=== PATIENT | female | born 1950 | race Caucasian/White ===

== ENCOUNTER 2016-10-16 12:29 | Emergency (ER) | payer OTHER ==
[~2016-10-16] VITALS: Ht 154.9 cm; Wt 57.0 kg
[~2016-10-16 12:29] MED LIST: ATV/1 PO; CALC0.2510 PO; FLV1 PO; LEVO50TA6 PO; LSN25 PO; MCRK20 PO; MELA1TAB9 PO; METO50TA7 PO; MULT-506 PO; OMEP40CA PO; PANT1TAB48 PO; PARO1TAB27 PO; PRAM1TAB6 PO; SIMV-151 PO; WARF-280 PO; WARF2.5T8 PO; ZOLP5TAB PO
[2016-10-16 12:31] VITALS: TEMP 36.7; Ht 154.9 cm; Wt 57.0 kg
[2016-10-16] MEDS ORDERED: SODIUM CHLORIDE 0.9% 1000ML 1,000 ML IV STA (12:39)
[2016-10-16] MEDS ORDERED: OMEP40CA41 PO (13:06)
[2016-10-16] MEDS ORDERED: POTA1TAB97 PO (13:06)
--- NOTE | 2016-10-16 13:09 | EMERGENCY ROOM VISIT NOTE ---
History First contact with patient: 12:35 Chief Complaint: GI ASSESSMENT Stated Complaint: GROIN PAIN Nursing Triage Summary: Patient c/o of RLQ abdominal pain x 1 wk. Associated symptoms include nausea. Patient reports constipated bowel pattern wth last bowel movement ocurring yesterday. History of Present Illness The patient is a 66 year old female who presents to the Emergency Room with complaints of right lower quadrant abdominal pain for the past one week. She has chronic constipation issues, she states these have been worse for the past week. The pain has been constant, achy, worse with movement, better with rest, unrelieved with bowel movements, 10/10. She has not tried any medications for this pain. She saw her PCP today who sent her to the ER for further evaluation. She has had multiple previous abdominal surgeries in the past, including total hysterectomy, hiatal hernia repair, and cholecystectomy. She denies fevers, chills, chest pain, shortness of breath, back pain, nausea, vomiting, blood in stool, urinary complaints, vaginal complaints. Review of Systems GENERAL: Denies fevers, chills, malaise, fatigue, unintentional weight changes. HEENT: Denies dizziness, visual problems, hearing loss, tinnitus. Denies difficulty swallowing or oral lesions. PULMONARY: Denies cough, shortness of breath, sputum production or hemoptysis. CARDIOVASCULAR: Denies chest pain, palpitations, dyspnea on exertion, orthopnea or peripheral edema. GASTROINTESTINAL: + Abdominal pain, constipation. Denies diarrhea, nausea, vomiting. GENITOURINARY: Denies dysuria, frequency, urgency or nocturia. NEUROLOGIC: Denies history of epilepsy, CVA, TIA or chronic headaches. MUSCULOSKELETAL: Denies history of joint tenderness/swelling. SKIN: Denies rashes or lesions. PSYCHIATRIC: Denies history of depression or mental illness. ENDOCRINE: Denies history of diabetes, thyroid disorders, abnormal hair growth or sexual dysfunction. Past Medical/Surgical History Medical Problems: (1) Anal fissure (2) ANEMIA NOS (3) AORTIC VALVE DISORDER (4) CHRONIC KIDNEY DISEASE, UNSPECIFIED (5) CONGESTIVE HEART FAILURE NOS (6) DIAPHRAGMATIC HERNIA (7) ESOPHAGEAL REFLUX (8) HEART DISEASE NOS (9) HYPOTHYROIDISM NOS (10) PURE HYPERCHOLESTEROLEM Family History Heart disease Hypertension Social History Smoking Status: Never Smoker Alcohol Use: none Marital Status: Housing Status: lives with family, lives with significant other Occupation Status: unemployed Current/Historical Medications Scheduled Calcitriol (Rocaltrol Cap), 0.25 MCG PO DAILY Folic Acid (Folic Acid), 1 MG PO DAILY Levothyroxine Sodium (Levothyroxine Sodium), 50 MCG PO QAM Lisinopril (Lisinopril), 2.5 MG PO DAILY Lorazepam (Ativan), 1 MG PO HS Melatonin-Pyridoxine (Melatonin), 3 MG PO HS Metoprolol Succ (Toprol Xl) (Toprol-Xl), 50 MG PO DAILY Multivitamin (Multivitamin), 1 TAB PO DAILY Omeprazole (Prilosec), 40 MG PO DAILY Pantoprazole (Protonix), 40 MG PO DAILY Paroxetine (Paxil), 30 MG PO DAILY Potassium Chloride (K-Tab), 20 MEQ PO DAILY Pramipexole Dihydrochloride (Pramipexole Dihydrochlori), 1 MG PO HS Simvastatin (Simvastatin), 20 MG PO HS Warfarin Sod (Jantoven), 0.5 TAB PO UD Warfarin Sodium (Warfarin Sodium), 2.5 MG PO WK Scheduled PRN Zolpidem Tartrate (Ambien), 5 MG PO HS PRN for Sleep Allergies Coded Allergies: Doxycycline (Verified Allergy, Unknown, ., 10/16/16) Sulfamethoxazole w/Trimethoprim (Verified Allergy, Unknown, ., 10/16/16) Physical Exam Vital Signs Date Time Temp Pulse Resp B/P Pulse Ox O2 Delivery O2 Flow Rate FiO2 10/16/16 17:29 60 16 121/49 94 Room Air 10/16/16 16:00 57 20 133/61 98 Room Air 10/16/16 15:01 56 16 139/63 97 Room Air 10/16/16 13:40 66 18 143/54 98 Room Air 10/16/16 13:05 62 10/16/16 13:03 61 16 143/60 97 Room Air 10/16/16 12:31 36.7 69 16 158/73 98 Physical Exam CONSTITUTIONAL: No acute distress and does not appear to be uncomfortable or in severe pain. Well appearing and well nourished. Alert and oriented X 4 with normal affect. HEENT: Normocephalic, atraumatic. Pupils equal, round and reactive to light, EOMI. TMs normal. Pharynx normal. Dry mucous membranes. NECK: Supple, full active range of motion without discomfort. RESPIRATORY: Clear to auscultation bilaterally with no wheezing, crackles, rhonchi or stridor. Equal expansion bilaterally. CARDIOVASCULAR: Regular rate and rhythm with no murmurs, rubs or gallops. Normal peripheral perfusion. No edema. GASTROINTESTINAL: Soft, nondistended. Bowel sounds present in all quadrants. Moderate tenderness of the right lower quadrant and suprapubic region, no rebound tenderness, no Rovsing or obturator signs, but positive McBurney's point tenderness. Patient has multiple well-healed surgical scars from previous surgeries. No palpable mass or hernia. MUSCULOSKELETAL: Full range of motion of all joints without discomfort. INTEGUMENTARY: No rash or other significant dermatologic conditions noted. NEUROLOGIC: Cranial nerves II-XII grossly intact. No focal neurologic deficits noted. Medical Decision & Procedures ER Provider Diagnostic Interpretation: ABDOMEN 2VIEW W/PA CHEST RTN CLINICAL HISTORY: eval for obstruction pain COMPARISON STUDY: 12/12/2015 FINDINGS: Moderate stable cardiomegaly. Prior median sternotomy and valve replacement. Lungs are considered clear. Chronic interstitial prominence both lung bases. Nonobstructive bowel pattern. IMPRESSION: No acute process of the chest or abdomen. ----- CT OF THE ABDOMEN AND PELVIS WITH CONTRAST CLINICAL HISTORY: Right lower quadrant pain. History of bowel obstruction. COMPARISON STUDY: CT of the abdomen and pelvis September 15, 2013. TECHNIQUE: Following IV administration of 92 mL of Optiray-320, axial images of the abdomen and pelvis were obtained from the lung bases to the proximal femurs. Images were reviewed in the axial, sagittal, and coronal planes. IV contrast was administered without complication. Oral contrast was administered. CT DOSE: 460.13 mGycm FINDINGS: Visualized portions of the lower chest demonstrate mild cardiomegaly. There are postsurgical findings at the gastroesophageal junction. Mild biliary ductal dilatation is likely due to prior cholecystectomy. A few subcentimeter hypodense hepatic lesions are too small to characterize likely reflect cysts. The spleen, adrenal glands, kidneys and pancreas are unremarkable. There is no peripancreatic infiltration. Caliber and wall thickness of small and large bowel are normal. There is no evidence for a bowel obstruction. The appendix is nonvisualized. There is no right lower quadrant inflammation. Postsurgical findings within the spine are noted. There is mild right pelvicaliectasis. No ureteral calculus is present. A few subcentimeter renal lesions are too small to characterize but likely reflect cysts. IMPRESSION: 1. No acute process within the abdomen or pelvis. 2. Mild biliary ductal dilatation likely related to prior cholecystectomy. 3. Mild right pelvicaliectasis without ja hydronephrosis. No ureteral calculus identified. Laboratory Results 10/16/16 12:52 Red Blood Count 3.85, Mean Corpuscular Volume 97.7, Mean Corpuscular Hemoglobin 32.7, Mean Corpuscular Hemoglobin Concent 33.5, Mean Platelet Volume 10.3, Neutrophils (%) (Auto) 61.6, Lymphocytes (%) (Auto) 24.2, Monocytes (%) (Auto) 10.5, Eosinophils (%) (Auto) 3.5, Basophils (%) (Auto) 0.1, Neutrophils # (Auto ) 4.57, Lymphocytes # (Auto) 1.80, Monocytes # (Auto) 0.78, Eosinophils # (Auto ) 0.26, Basophils # (Auto) 0.01 10/16/16 12:52 Test 10/16/16 12:45 10/16/16 12:52 10/16/16 12:59 Urine Color DK YELLOW Urine Appearance CLEAR (CLEAR) Urine pH 5.0 (4.5-7.5) Urine Specific [place] 1.027 (1.000-1.030) Urine Protein NEG (NEG) Urine Glucose (UA) NEG (NEG) Urine Ketones TRACE (NEG) Urine Occult Blood NEG (NEG) Urine Nitrite NEG (NEG) Urine Bilirubin NEG (NEG) Urine Urobilinogen NEG (NEG) Urine Leukocyte Esterase NEG (NEG) White Blood Count 7.43 K/uL (4.8-10.8) Red Blood Count 3.85 M/uL (4.2-5.4) Hemoglobin 12.6 g/dL (12.0-16.0) Hematocrit 37.6 % (37-47) Mean Corpuscular Volume 97.7 fL (80-100) Mean Corpuscular Hemoglobin 32.7 pg (25-34) Mean Corpuscular Hemoglobin Concent 33.5 g/dl (32-36) Platelet Count 181 K/uL (130-400) Mean Platelet Volume 10.3 fL (7.4-10.4) Neutrophils (%) (Auto) 61.6 % Lymphocytes (%) (Auto) 24.2 % Monocytes (%) (Auto) 10.5 % Eosinophils (%) (Auto) 3.5 % Basophils (%) (Auto) 0.1 % Neutrophils # (Auto) 4.57 K/uL (1.4-6.5) Lymphocytes # (Auto) 1.80 K/uL (1.2-3.4) Monocytes # (Auto) 0.78 K/uL (0.11-0.59) Eosinophils # (Auto) 0.26 K/uL (0-0.5) Basophils # (Auto) 0.01 K/uL (0-0.2) RDW Standard Deviation 49.6 fL (36.4-46.3) RDW Coefficient of Variation 13.9 % (11.5-14.5) Immature Granulocyte % (Auto) 0.1 % Immature Granulocyte # (Auto) 0.01 K/uL (0.00-0.02) Prothrombin Time 30.6 SECONDS (9.0-12.0) Prothromb Time International Ratio 2.7 (0.9-1.1) Activated Partial Thromboplast Time 42.9 SECONDS (21.0-31.0) Partial Thromboplastin Ratio 1.7 Anion Gap 8.0 mmol/L (3-11) Est Creatinine Clear Calc Drug Dose 29.8 ml/min Estimated GFR () 45.3 Estimated GFR (Non- 39.1 BUN/Creatinine Ratio 16.7 (10-20) Calcium Level 8.7 mg/dl (8.5-10.1) Total Bilirubin 0.6 mg/dl (0.2-1) Direct Bilirubin 0.1 mg/dl (0-0.2) Aspartate Amino Transf (AST/SGOT) 29 U/L (15-37) Alanine Aminotransferase (ALT/SGPT) 23 U/L (12-78) Alkaline Phosphatase 115 U/L (45-117) Total Protein 7.6 gm/dl (6.4-8.2) Albumin 3.9 gm/dl (3.4-5.0) Lipase 187 U/L (73-393) Bedside Lactic Acid Venous 0.48 mmol/L (0.90-1.70) Medications Administered Medications (Trade) Dose Ordered Sig/Piper Route Start Time Stop Time Status Last Admin Dose Admin Sodium Chloride (Nss 1000ml) 1,000 ml @ 999 mls/hr Q1H1M STAT IV 10/16/16 12:39 10/16/16 13:39 DC 10/16/16 12:58 999 MLS/HR Morphine Sulfate (MoRPHine SULFATE INJ) 2 mg Q1H PRN IV 10/16/16 13:30 10/16/16 17:54 DC 10/16/16 15:56 2 MG Morphine Sulfate (MoRPHine SULFATE INJ) 2 mg 1319 ONCE IV 10/16/16 13:19 10/16/16 13:23 DC 10/16/16 13:39 2 MG Ondansetron HCl (Zofran Inj) 4 mg NOW PRN IV 10/16/16 13:30 10/16/16 17:54 DC 10/16/16 13:37 4 MG ED Course Orders placed at bedside for labs, urinalysis, IV fluid bolus, CT of the abdomen /pelvis to evaluate for appendicitis, hernia, small bowel obstruction, adhesions , versus possible obstipation. Patient discussed with Dr. Mccoy, who agrees with my assessment and plan. Patient reassessed after IV morphine, reports improved pain. Awaiting CT. CT results reviewed, no indication of appendicitis or any other acute findings. Moderate fecal load noted. I reassessed the patient, informed her of all results, and plan for discharge home. She states her pain is somewhat improved at this time. Patient and her daughter verbalized understanding of discharge instructions, plan for follow-up , and return criteria should her symptoms persist or worsen. Medical Decision CC: Patient presenting with complaint of right lower quadrant abdominal pain and constipation for one week. Interpretation of Labs: CBC unremarkable; no significant electrolyte abnormalities; slight worsening of renal function compared to baseline ( previous creatinine of 1.2) Differential Diagnosis: Includes, but not limited to appendicitis, hernia, small bowel obstruction, diverticulitis, inflammatory bowel disease, constipation versus obstipation, dehydration. Summary: Patient is alert and well appearing on initial exam, noted acute distress. Abdomen is moderately tender in the right lower quadrant and suprapubic region, reproduces pain, no rebound tenderness. Labs are fairly unremarkable, suspect worsening of renal function secondary to dehydration. CT of the abdomen/pelvis with oral and IV contrast shows no acute findings, the appendix was not visualized, however there are no inflammatory changes noted. On repeat questioning, patient states she may have had her appendix removed in the past. I do note moderate fecal load consistent with constipation. I suspect patient's symptoms may be related to her constipation, and suggested treatment regimen for this with Colace and MiraLAX. Patient reassessed multiple times throughout ED stay, with improvement after treatments. Patient and her daughter were encouraged to follow closely with the PCP, as well as given strict return precautions should her pain persist or worsen, they verbalized understanding. Patient was discussed with and independently examined by the attending physician , who agrees with my assessment and disposition. Impression Primary Impression: Abdominal pain Additional Impression: Constipation Departure Information Dispostion Home / Self-Care Condition GOOD Referrals Gomez Bass M.D. (PCP) Patient Instructions Calcium Polycarbophil Oral tablet, ED Abd Pain Unkn Cause Fem, My [facility] Additional Instructions Follow-up with your PCP in the next 1-2 days to be reassessed. Drink plenty of fluids to stay well hydrated. This will also help with your constipation. Start taking Colace 1 capsule twice a day. This is an [id number] stool softener. Start taking MiraLAX 1 capful daily to help relieve constipation. This is an szly-bio-[id number] mild laxative. You should take this until your stool reaches a thick applesauce type consistency. Stop taking if you develops diarrhea or worsening abdominal pain. You may also take simethicone, which is [id number], as directed as needed for gas pain. Please return to the emergency department for any worsening symptoms, including persistent or worsening abdominal pain, vomiting blood or bile, blood in the stool, fever/chills/feeling ill, or any other concerns. Problem Qualifiers Primary Impression: Abdominal pain Abdominal location: right lower quadrant Qualified Codes: R10.31 - Right lower quadrant pain Additional Impression: Constipation Constipation type: chronic idiopathic constipation Qualified Codes: K59.04 - Chronic idiopathic constipation
[2016-10-16] MEDS ORDERED: MoRPHine SULFATE 4 MG/ML 1 ML CARP\\VIAL IV ONE (13:19)
[2016-10-16] MEDS ORDERED: ONDANSETRON INJ 2 MG/ML 2 ML VIAL IV PRN (13:30)
[2016-10-16] MEDS ORDERED: MoRPHine SULFATE 4 MG/ML 1 ML CARP\\VIAL IV PRN (13:30)
[2016-10-16] MEDS ORDERED: MoRPHine SULFATE 2 MG/ML CARP ONE (13:35)
[2016-10-16 13:38] LABS: URINE APPEARANCE CLEAR (CLEAR); URINE BILIRUBIN NEG (NEG); URINE COLOR DK YELLOW; URINE NITRITE NEG (NEG); URINE SPECIFIC GRAVITY 1.027 (1.000-1.030); UROBILINOGEN NEG (NEG)
[2016-10-16 13:39] LABS: BASO % 0.1 %; BASO ABS # 0.01 K/uL (0-0.2); COMPLETE YES; EOS % 3.5 %; HEMATOCRIT 37.6 % (37-47); IG% 0.1 %; LYMPH % 24.2 %; MEAN CELL VOLUME 97.7 fL (80-100); MEAN CORPUSCULAR HEMOGLOBIN 32.7 pg (25-34); MEAN CORPUSCULAR HGB CONC 33.5 g/dl (32-36); MEAN PLATELET VOLUME 10.3 fL (7.4-10.4); MONO % 10.5 %; NEUT % 61.6 %; PLATELET COUNT 181 K/uL (130-400); RED BLOOD COUNT 3.85 M/uL (4.2-5.4); WHITE BLOOD COUNT 7.43 K/uL (4.8-10.8)
[2016-10-16] MEDS ORDERED: OPTIRAY 320 IV PRN (13:45)
[2016-10-16 13:54] LABS: INR 2.7 (0.9-1.1); PARTIAL THROMBOPLASTIN RATIO 1.7; PROTHROMBIN TIME (PATIENT) 30.6 SECONDS (9.0-12.0)
[2016-10-16 13:56] LABS: BUN/CREATININE RATIO 16.7 (10-20); CALCIUM 8.7 mg/dl (8.5-10.1); CREATININE 1.4 mg/dl (0.60-1.20); POTASSIUM 3.8 mmol/L (3.5-5.1)
[2016-10-16 14:05] LABS: MANUAL MICROSCOPIC REQUIRED? NO; REVIEW REQ? NO
--- NOTE | 2016-10-16 14:54 | DIAGNOSTIC IMAGING REPORT ---
ABDOMEN 2VIEW W/PA CHEST RTN CLINICAL HISTORY: eval for obstruction pain COMPARISON STUDY: 12/12/2015 FINDINGS: Moderate stable cardiomegaly. Prior median sternotomy and valve replacement. Lungs are considered clear. Chronic interstitial prominence both lung bases. Nonobstructive bowel pattern. IMPRESSION: No acute process of the chest or abdomen. Electronically signed by: Nando Hernandez M.D. 10/16/2016 2:53 PM Dictated Date/Time: 10/16/2016 2:52 PM
--- NOTE | 2016-10-16 16:48 | DIAGNOSTIC IMAGING REPORT ---
CT OF THE ABDOMEN AND PELVIS WITH CONTRAST CLINICAL HISTORY: Right lower quadrant pain. History of bowel obstruction. COMPARISON STUDY: CT of the abdomen and pelvis September 15, 2013. TECHNIQUE: Following IV administration of 92 mL of Optiray-320, axial images of the abdomen and pelvis were obtained from the lung bases to the proximal femurs. Images were reviewed in the axial, sagittal, and coronal planes. IV contrast was administered without complication. Oral contrast was administered. CT DOSE: 460.13 mGycm FINDINGS: Visualized portions of the lower chest demonstrate mild cardiomegaly. There are postsurgical findings at the gastroesophageal junction. Mild biliary ductal dilatation is likely due to prior cholecystectomy. A few subcentimeter hypodense hepatic lesions are too small to characterize likely reflect cysts. The spleen, adrenal glands, kidneys and pancreas are unremarkable. There is no peripancreatic infiltration. Caliber and wall thickness of small and large bowel are normal. There is no evidence for a bowel obstruction. The appendix is nonvisualized. There is no right lower quadrant inflammation. Postsurgical findings within the spine are noted. There is mild right pelvicaliectasis. No ureteral calculus is present. A few subcentimeter renal lesions are too small to characterize but likely reflect cysts. IMPRESSION: 1. No acute process within the abdomen or pelvis. 2. Mild biliary ductal dilatation likely related to prior cholecystectomy. 3. Mild right pelvicaliectasis without ja hydronephrosis. No ureteral calculus identified. Electronically signed by: Angel Munson M.D. 10/16/2016 4:47 PM Dictated Date/Time: 10/16/2016 4:39 PM
--- NOTE | 2016-10-16 16:53 | EMERGENCY ROOM VISIT NOTE ---
ED Visit Note First contact with patient: 12:35 I did evaluate and examine this patient myself. I did guide management for the patient. I agree with the APC's assessment as discussed. Please see the APC's dictation for further details. I did independently review the CT scan, x-rays and blood work. There is no evidence of acute appendicitis or bowel obstruction.
[2016-10-16 17:29] VITALS: BP 121/49; PULSE 60; O2SAT 94
== END 2016-10-16 17:44 | disposition home or self-care (01) ==
LOC: C.EDB 12:30 → C.EDA 17:44
DX: R10.31 Right lower quadrant pain (principal); K59.04 Chronic idiopathic constipation; D64.9 Anemia, unspecified; I35.8 Other nonrheumatic aortic valve disorders; N18.9 Chronic kidney disease, unspecified; I50.9 Heart failure, unspecified; K21.9 Gastro-esophageal reflux disease without esophagitis; I51.9 Heart disease, unspecified; E03.9 Hypothyroidism, unspecified; E78.00 Pure hypercholesterolemia, unspecified; Z82.49 Family history of ischemic heart disease and other diseases of the circulatory system; Z79.01 Long term (current) use of anticoagulants; Z79.899 Other long term (current) drug therapy

== ENCOUNTER → 2017-10-07 | Outpatient (CLI) | payer OTHER ==
[~2017-10-07] MED LIST changes: -MCRK20 PO; -METO50TA7 PO; +METO50TA8 PO; -OMEP40CA PO; +OMEP40CA41 PO; +PANT1TAB3 PO; -PANT1TAB48 PO; +POTA1TAB97 PO; +PRAM1TAB10 PO; -PRAM1TAB6 PO
[2017-10-07 11:50] LABS: HEMATOCRIT 33.1 % (37-47); HEMOGLOBIN 10.8 g/dL (12.0-16.0); MEAN CELL VOLUME 92.7 fL (80-100); MEAN CORPUSCULAR HEMOGLOBIN 30.3 pg (25-34); MEAN CORPUSCULAR HGB CONC 32.6 g/dl (32-36); MEAN PLATELET VOLUME 9.5 fL (7.4-10.4); PLATELET COUNT 356 K/uL (130-400); RED CELL DISTRIBUTION WIDTH CV 14.7 % (11.5-14.5); RED CELL DISTRIBUTION WIDTH SD 49.4 fL (36.4-46.3); WHITE BLOOD COUNT 8.25 K/uL (4.8-10.8)
[2017-10-07 11:57] LABS: INR 2.4 (0.9-1.1)
[2017-10-07 11:58] LABS: BLOOD UREA NITROGEN 25 mg/dl (7-18); CALCIUM 8.8 mg/dl (8.5-10.1); CARBON DIOXIDE 29 mmol/L (21-32); CREATININE 0.95 mg/dl (0.60-1.20); GLUCOSE 111 mg/dl (70-99); SODIUM 137 mmol/L (136-145)
== END | disposition home or self-care (01) ==
LOC: C.LABSPEC 11:40
PROVIDERS: ATTEND Student in an Organized Health Care Education/Training Program
DX: Z47.1 Aftercare following joint replacement surgery (principal); Z79.01 Long term (current) use of anticoagulants

== ENCOUNTER 2018-09-03 13:16 | Inpatient (IN) ==
[2018-09-03] MEDS ORDERED: VANCOMYCIN CONSULT ACTIVE PRN (13:43)
[2018-09-03] MEDS ORDERED: cefTRIAXone SODIUM 1,000 MG in DEXTROSE 5% 50 ML IV STA (13:43)
[2018-09-03] MEDS ORDERED: LORazepam 1 MG/2 ML VIAL IV STA (13:43)
[2018-09-03] MEDS ORDERED: VANCOMYCIN HCL 1,250 MG in SODIUM CHLORIDE 0.9% 500 ML IV ONE (13:43)
[2018-09-03 13:58] LABS: Basophils # (auto) 0.01 K/uL (0-0.2); Basophils % (auto) 0.1 %; Eosinophils # (auto) 0.22 K/uL (0-0.5); Eosinophils % (auto) 2.8 %; Hematocrit (blood only) 39.4 % (37-47); Hemoglobin 13.1 g/dL (12.0-16.0); Immature Granulocytes # (auto) 0.03 K/uL (0.00-0.02); Immature Granulocytes % (auto) 0.4 %; Lymphocytes # (auto) 1.67 K/uL (1.2-3.4); Lymphocytes % (auto) 21.2 %; Mean Corpuscular Hgb Conc 33.2 g/dL (32-36); Mean Platelet Volume 11.7 fL (7.4-10.4); Monocytes # (auto) 0.85 K/uL (0.11-0.59); Monocytes % (auto) 10.8 %; Neutrophils % (auto) 64.7 %; Platelet Count 166 K/uL (130-400); RDW Coefficient of Variation 13.8 % (11.5-14.5); RDW Standard Deviation 47.1 fL (36.4-46.3); Red Blood Count 4.19 M/uL (4.2-5.4); White Blood Count 7.88 K/uL (4.8-10.8)
[2018-09-03 14:11] LABS: INR 2.7 (0.9-1.1); Partial Thromboplastin Ratio 1.6; Partial Thromboplastin Time 43.9 Seconds (21.0-31.0); Prothrombin Time 25.6 Seconds (9.0-12.0)
[2018-09-03 14:50] LABS: Appearance Urine Clear (Clear); Bilirubin Urine Negative (Negative); Blood Urine Negative (Negative); Color Urine Yellow; Glucose Urine UA Negative (Negative); Ketones Urine Trace (Negative); Leukocyte Esterase Urine Negative (Negative); Nitrite Urine Negative (Negative); Protein Urine Negative (Negative); Specific Gravity Urine 1.022 (1.000-1.030); Urobilinogen Urine Negative (Negative)
[2018-09-03 15:08] LABS: Alanine Aminotransferase 14 U/L (12-78); Albumin Globulin Ratio 0.9 (0.9-2); Albumin Level 3.5 gm/dl (3.4-5.0); Alkaline Phosphatase 140 U/L (45-117); BUN Creatinine Ratio 17.8 (10-20); Bilirubin,Total 0.5 mg/dl (0.2-1); Blood Urea Nitrogen 24 mg/dl (7-18); Calcium 8.1 mg/dl (8.5-10.1); Carbon Dioxide 31 mmol/L (21-32); Chloride 108 mmol/L (98-107); Creatinine Clr Calc Pharmacy 32.8 ml/min; Est GFR (African American) 45.8; Est GFR (Non-African American) 39.5; Globulin 3.9 gm/dl (2.5-4.0); Glucose 95 mg/dl (70-99); Total Protein 7.4 gm/dl (6.4-8.2); Troponin I < 0.015 ng/ml (0-0.045)
[2018-09-03 15:15] LABS: Sodium 141 mmol/L (136-145)
[2018-09-03 15:23] LABS: Aspartate Aminotransferase 27 U/L (15-37); Magnesium 2.1 mg/dl (1.8-2.4)
[2018-09-03] MEDS ORDERED: OPTIRAY 320 125ml IV PRN (15:55)
--- NOTE | 2018-09-03 16:06 | CT Scan Report ---
CT head/brain wo con CT DOSE: 1518.27 mGy.cm HISTORY: Mental status change Stroke evaluation TECHNIQUE: Multiaxial CT images of the head were performed without the use of intravenous contrast. A dose lowering technique was utilized adhering to the principles of ALARA. Comparison: 07/31/2018 Findings: Mucosal thickening left maxillary sinus. Remaining sinuses are clear. The calvarium and sku ll base are intact. The ventricles and sulci are within normal limits. There is no mass, hematoma, mi dline shift, or acute infarct. Impression: No acute intracranial abnormality. Age-related chronic small vessel change. Mucosal thickening left m axillary sinus. The above report was generated using voice recognition software. It may contain grammatical, syntax or spelling errors. Electronically signed by: Nando Hernandez M.D. 09/03/2018 4:04 PM
--- NOTE | 2018-09-03 16:12 | CT Scan Report ---
CT ANGIOGRAM OF THE BRAIN; CT ANGIOGRAM OF THE NECK CLINICAL HISTORY: Change in mental status. COMPARISON STUDY: Unenhanced CT of the brain performed concurrently on 09/03/2018. CT angiogram of th e head and neck dated 07/31/2018. TECHNIQUE: Following the IV administration of 119 of Optiray 320, CT angiogram of the head and neck w as performed from the aortic arch to the vertex. Images are reviewed in the axial, sagittal, and hodan nal planes. 3-D MIPS images are created and assessed. IV contrast was administered without complicati on. All measurements were calculated based on NASCET criteria. A dose lowering technique was utilize d adhering to the principles of ALARA. FINDINGS: Brain parenchyma: There is age-related involutional change noting mild subcortical and periventricula r microangiopathic disease. There is no hemorrhage, mass effect, or evidence of acute territorial isc hemia by CT criteria. There is no evidence of enhancing mass lesion on the angiogram phase images. Th e ventricles, sulci, and cisterns are prominent secondary to involutional change. Sepulveda-white matter d ifferentiation is preserved. No extra-axial fluid collection is seen. Thoracic aorta: Visualized portions of the thoracic aorta are normal in caliber. The aortic arch demo nstrates standard 3-vessel anatomy. Right carotid arterial system: The right common carotid artery is widely patent, as are the right int ernal and carotid arteries. Mild atherosclerotic plaque is noted in the carotid bulb. Left carotid arterial system: The left common carotid artery is widely patent. Soft and calcified danielle que in the carotid bulb causes less than 50% luminal narrowing at the origin of the left internal car otid artery. The remainder of the left internal carotid artery is widely patent, as is the left inter nal carotid artery. Vertebral arteries: Patent bilaterally and codominant. Subclavian arteries: Widely patent bilaterally. Intracranial vasculature: The internal carotid arteries are patent at the skull base, as are the ante rior and middle cerebral arteries bilaterally. The vertebrobasilar system and posterior cerebral jyoti tushar are widely patent. The vertebral arteries are codominant. There is no aneurysm, high-grade steno sis, or focal vessel cut off seen throughout the intracranial circulation. Jugular veins: Widely patent bilaterally. Dural sinuses: Patent. Lung apices: Midline sternotomy wires are noted. Partially visualized upper lobe lung parenchyma appe ars clear. Soft tissues: The visualized pharyngeal soft tissues are normal in appearance noting angiographic pha se technique. The oropharyngeal airway appears widely patent. The salivary and thyroid glands are nor mal in appearance. No cervical lymphadenopathy is seen. Skeletal structures: The skeletal structures are osteopenic. The calvarium appears intact. The cervic al spine is maintained noting multilevel spondylosis and postoperative change. No lytic or blastic le dylan is seen. Orbits: The bony orbits are intact. Orbital contents are normal as imaged. Sinuses and mastoids: There is advanced mucosal thickening in the left maxillary antrum. Mild mucosal thickening is noted in the ethmoid sinuses. The remaining paranasal sinuses are clear. The mastoid a ir cells are well pneumatized. IMPRESSION: 1. There is no hemorrhage, mass effect, or evidence of acute territorial ischemia by CT criteria on t his angiographic phase examination. 2. Unremarkable CT angiogram of the brain. No change from 07/31/2018. 3. There is less than 50% stenosis at the origin of the left internal carotid artery. This is unchang ed from study performed one month previously. 4. Otherwise unremarkable CT angiogram of the neck. 5. Left maxillary sinus disease as above. Electronically signed by: Amaury Mcgovern M.D. 09/03/2018 4:11 PM
--- NOTE | 2018-09-03 19:16 | History & Physical Report ---
Date of Service September 03, 2018 Assessment & Plan (1) Altered mental status: -admit to med/surg with tele -patient presenting from home with persistent babbling and unintelligble speech; had similar presentation one month ago and was life flighted to [facility] for concerns of acute CVA - work up there was negative for stroke and seizure, patient was found to have acute UTI and symptoms were felt to be due to metabolic encephalopathy -In the ED today, head CT and CTA negative for acute findings; labs and urine unremarkable -Patient received Ativan 1 mg IV with marked improvement in her symptoms -Patient currently alert and oriented, mildly slow to respond, no gross focal de ficits noted -Continue neurochecks -? if symptoms are due to underlying psychiatric disorder versus polypharmacy (noted the patient is on citalopram, pramipexole, memantine, pregabalin) -Will hold pramipexole and memantine, reduce dose of pregabalin to 50 mg 3 times daily, continue home dose of citalopram -Mental health consult, case discussed with nurse liaison (2) Tinea corporis: -Noted to left anterior gibson -will start clotrimazole cream -no signs of surrounding cellulitis (3) Hypertension: -BP controlled, continue metoprolol and lisinopril (4) Hx of aortic valve replacement, mechanical: (5) H/O mitral valve replacement with mechanical valve: -Anticoagulated on Coumadin, INR 2.7 -Continue Coumadin at home dosing (6) CKD (chronic kidney disease), stage III: - baseline creat runs in the low ones - creat noted to be 1.3 today - continue to monitor, avoid nephrotoxic agents when able (7) Dyslipidemia: -Continue statin (8) Hypothyroidism: -Continue levothyroxine (9) Chronic pain: -Reducing pregabalin as above -Follows with [facility] in [place] (10) RLS (restless legs syndrome): -Holding pramipexole as above (11) Chronic constipation: -Continue Amitiza (12) DVT prophylaxis: -Anticoagulated on Coumadin with therapeutic INR History of Present Illness Chief Complaint: Altered mental status Primary Care Provider: Gomez Bass 68-year-old female who presents to the ED with altered mental status. On 07/31, patient presented to [facility] ED with aphasia/persistent babbling. Patient was life flighted to [facility] for concerns of acute CVA. Stroke and se izure workup at [place] was negative. Patient was found to have an acute UTI and altered mental status was attributed to metabolic encephalopathy. Patient's is at bedside who provides some information. He reports that patient had been doing well. He reports that this morning, patient was working in the garage with him. She then went into the house and had a very similar presentation to which she had about 1 month ago. He reports that she was constantly babbling and her speech was unintelligible. She was then brought to the ED via EMS for further evaluation. reports the patient was complaining of her head hurting but denies any other symptoms. No reports of chest pain or shortness of breath. No loss of consciousness. No abdominal pain, nausea, vomiting, diarrhea. No other recent illnesses, fevers, chills. No urinary symptoms. In the ED, head CT and CTA are negative for acute findings. Labs are unremarkable. Patient was given lorazepam 1 mg IV with improvement in her symptoms. Patient also also given IV Vanco and IV ceftriaxone for possible left lower extremity cellulitis. Allergies Allergy/AdvReac Type Severity Reaction Status Date / Time Bactrim Allergy Unknown . Verified 10/16/16 13:02 doxycycline Allergy Unknown . Verified 09/03/18 14:40 sulfamethoxazole Allergy Unknown . Verified 09/03/18 14:40 trimethoprim Allergy Unknown . Verified 09/03/18 14:40 Home Medications Home Medications Medication Instructions Recorded Confirmed Type acidophilus-pectin, citrus 1 cap PO DAILY 07/31/18 09/03/18 History [Acidophilus Probiotic] citalopram 20 mg PO DAILY 07/31/18 09/03/18 History levothyroxine 50 mcg PO DAILY 07/31/18 09/03/18 History lisinopril 2.5 mg PO DAILY 07/31/18 09/03/18 History lubiprostone [Amitiza] 8 mcg PO BIDM 07/31/18 09/03/18 History memantine 10 mg PO BID 07/31/18 09/03/18 History metoprolol succinate 50 mg PO DAILY 07/31/18 09/03/18 History pantoprazole 40 mg PO DAILY 07/31/18 09/03/18 History potassium chloride [Klor-Con M20] 20 meq PO DAILY 07/31/18 09/03/18 History pramipexole 1 mg PO HS 07/31/18 09/03/18 History pregabalin [Lyrica] 100 mg PO TID 07/31/18 09/03/18 History simvastatin 20 mg PO DAILY 07/31/18 09/03/18 History warfarin 2.5 mg PO SUMOWETHFRSA 07/31/18 09/03/18 History warfarin 1.25 mg PO TU 09/03/18 09/03/18 History Past Med/Surg History Medical History Chronic constipation (Chronic) RLS (restless legs syndrome) (Chronic) Chronic pain (Chronic) CKD (chronic kidney disease), stage III (Chronic) Hypertension (Chronic) CVA (cerebral vascular accident) (Chronic) BIRDIE (obstructive sleep apnea) (Chronic) Dyslipidemia (Chronic) Hypothyroidism (Chronic) Surgical History S/P total abdominal hysterectomy (Chronic) H/O neck surgery (Chronic) History of cholecystectomy (Chronic) H/O oophorectomy (Chronic) S/P repair of paraesophageal hernia (Chronic) History of total right hip replacement (Chronic) S/P lumbar fusion (Chronic) H/O hemorrhoidectomy (Chronic) Hx of aortic valve replacement, mechanical (Chronic) H/O mitral valve replacement with mechanical valve (Chronic) Family History Father Heart disease Mother Stroke Social History Preferred Language: Haitian Communication Ability: Effective Clarity Developer Required: No Beliefs That Will Affect Care: None Current Living Situation: Spouse Other Information That Helps Us Care for You: No Feels Safe at Home: Yes Safety Concerns: Feels Safe At This Time Smoking Status: Never smoker Hx Alcohol Use: No Hx Substance Use: No Review of Systems Unobtainable due to reduced consciousness (Reviewed with as per HPI) Physical Exam Vital Signs (Past 24 Hours): Last Vital Signs Temp 36.8 C 09/03/18 16:13 Pulse 62 09/03/18 17:43 Resp 17 09/03/18 17:43 BP 147/58 H 09/03/18 17:43 Pulse Ox 94 09/03/18 17:43 Constitutional: WD/WN, vitals as above Eyes: PERRL, conjunctivae normal, anicteric sclerae ENMT: external ear and nose normal, oropharynx normal Respiratory: normal respiratory effort, lungs clear to auscultation Cardiovascular: Rate/Rhythm: regular rate and regular rhythm Vessels: normal peripheral pulses Extremities: no edema Gastrointestinal (Abdomen): Inspection/Auscultation: + abdomen distended Percussion/Palpation: abdomen soft; abdomen nontender and no hepatosplenomegaly Musculoskeletal: no cyanosis or clubbing, extremities motor strength 5/5 Skin: + rash (Tinea-like rash noted to the left anterior gibson with a small amount of serous seepage) Skin warm and dry Neurologic: PERRL, EOMI, accommodation nl, no face palsy, no dysarthria Mildly slow to respond, no gross focal deficits noted Psychiatric: A+Ox3, euthymic affect (Forgetful) Insight: + limited insight Results & Data Laboratory Results Laboratory Last Values WBC 7.88 K/uL (4.8-10.8) 09/03/18 12:45 RBC 4.19 M/uL (4.2-5.4) L 09/03/18 12:45 Hgb 13.1 g/dL (12.0-16.0) 09/03/18 12:45 Hct 39.4 % (37-47) 09/03/18 12:45 MCV 94.0 fL (80-100) 09/03/18 12:45 MCH 31.3 pg (25-34) 09/03/18 12:45 MCHC 33.2 g/dL (32-36) 09/03/18 12:45 RDW Std Deviation 47.1 fL (36.4-46.3) H 09/03/18 12:45 RDW Coeff of Gisele 13.8 % (11.5-14.5) 09/03/18 12:45 Plt Count 166 K/uL (130-400) 09/03/18 12:45 MPV 11.7 fL (7.4-10.4) H 09/03/18 12:45 Immature Gran % (Auto) 0.4 % 09/03/18 12:45 Neut % (Auto) 64.7 % 09/03/18 12:45 Lymph % (Auto) 21.2 % 09/03/18 12:45 [place] % (Auto) 10.8 % 09/03/18 12:45 Eos % (Auto) 2.8 % 09/03/18 12:45 Baso % (Auto) 0.1 % 09/03/18 12:45 Immature Gran # (Auto) 0.03 K/uL (0.00-0.02) H 09/03/18 12:45 Neut # (Auto) 5.10 K/uL (1.4-6.5) 09/03/18 12:45 Lymph # (Auto) 1.67 K/uL (1.2-3.4) 09/03/18 12:45 [place] # (Auto) 0.85 K/uL (0.11-0.59) H 09/03/18 12:45 Eos # (Auto) 0.22 K/uL (0-0.5) 09/03/18 12:45 Baso # (Auto) 0.01 K/uL (0-0.2) 09/03/18 12:45 PT 25.6 Seconds (9.0-12.0) H 09/03/18 12:45 INR 2.7 (0.9-1.1) H 09/03/18 12:45 APTT 43.9 Seconds (21.0-31.0) H 09/03/18 12:45 PTT Ratio 1.6 09/03/18 12:45 Sodium 141 mmol/L (136-145) 09/03/18 12:45 Potassium 5.0 mmol/L (3.5-5.1) 09/03/18 12:45 Chloride 108 mmol/L (98-107) H 09/03/18 12:45 Carbon Dioxide 31 mmol/L (21-32) 09/03/18 12:45 Anion Gap 1.0 (3-11) L 09/03/18 12:45 BUN 24 mg/dl (7-18) H 09/03/18 12:45 Creatinine 1.37 mg/dl (0.6-1.2) H 09/03/18 12:45 Est Cr Clr Drug Dosing 32.8 ml/min 09/03/18 12:45 Est GFR ( Amer) 45.8 09/03/18 12:45 Est GFR (Non-Af Amer) 39.5 09/03/18 12:45 BUN/Creatinine Ratio 17.8 (10-20) 09/03/18 12:45 Glucose 95 mg/dl (70-99) 09/03/18 12:45 POC Glucose 97 (70-99) 09/03/18 13:45 Calcium 8.1 mg/dl (8.5-10.1) L 09/03/18 12:45 Magnesium 2.1 mg/dl (1.8-2.4) 09/03/18 12:45 Total Bilirubin 0.5 mg/dl (0.2-1) 09/03/18 12:45 AST 27 U/L (15-37) 09/03/18 12:45 ALT 14 U/L (12-78) 09/03/18 12:45 Alkaline Phosphatase 140 U/L (45-117) H 09/03/18 12:45 Troponin I < 0.015 ng/ml (0-0.045) 09/03/18 12:45 Total Protein 7.4 gm/dl (6.4-8.2) 09/03/18 12:45 Albumin 3.5 gm/dl (3.4-5.0) 09/03/18 12:45 Globulin 3.9 gm/dl (2.5-4.0) 09/03/18 12:45 Albumin/Globulin Ratio 0.9 (0.9-2) 09/03/18 12:45 Urine Color Yellow 09/03/18 14:35 Urine Appearance Clear (Clear) 09/03/18 14:35 Urine pH 5.0 (4.5-7.5) 09/03/18 14:35 Ur Specific Turner 1.022 (1.000-1.030) 09/03/18 14:35 Urine Protein Negative (Negative) 09/03/18 14:35 Urine Glucose (UA) Negative (Negative) 09/03/18 14:35 Urine Ketones Trace (Negative) H 09/03/18 14:35 Urine Blood Negative (Negative) 09/03/18 14:35 Urine Nitrite Negative (Negative) 09/03/18 14:35 Urine Bilirubin Negative (Negative) 09/03/18 14:35 Urine Urobilinogen Negative (Negative) 09/03/18 14:35 Ur Leukocyte Esterase Negative (Negative) 09/03/18 14:[address] Head Impression: No acute intracranial abnormality. Age-related chronic small vessel change. Mucosal thickening left maxillary sinus. HEAD AND NECK CTA IMPRESSION: 1. There is no hemorrhage, mass effect, or evidence of acute territorial ischemia by CT criteria on this angiographic phase examination. 2. Unremarkable CT angiogram of the brain. No change from 07/31/2018. 3. There is less than 50% stenosis at the origin of the left internal carotid artery. This is unchanged from study performed one month previously. 4. Otherwise unremarkable CT angiogram of the neck. 5. Left maxillary sinus disease as above. Code Status & VTE Plan VTE Prophylaxis Plan VTE Prophylaxis will be ordered: Yes Supervising Physician Co-Signing Physician Notes Patient is a 68-year-old female with history of hypertension, valvular heart disease, CKD 3, dyslipidemia, hypothyroidism, restless leg syndrome and other problems presents with history of altered mental status. Patient was noted to be aphasic, persistent babbling-making no sense as per . Patient had similar episode in July and was transferred to [place] at that time was noted to have UTI. CTA head and neck, CT head showed no acute findings. While in ED patient's mental status improved. She was oriented to person and place. She followed simple commands. Patient was noted to be on multiple medications including Lyrica, Celexa, pramipexole, memantine. On exam patient is moderately built and nourished, no apparent distress, normocephalic atraumatic, slow to respond, lungs normal breath sounds, clear to auscultation, S1-S2 positive metallic click, abdomen is soft nontender, grossly no focal deficits, no pedal edema, + circular erythematous lesions on left lower extremity. Patient's altered mental status is thought to be secondary to polypharmacy. We will hold pramipexole and memantine. We will decrease the dose of Lyrica to 50 mg 3 times daily. Will consult psychiatry for adjusting of medication doses. Will order neuro checks. Consider neurology evaluation if clinically deteriorates. Will start on clotrimazole cream for Tenia infection. Patient denies any dysuria and UA not suggestive of UTI. I personally reviewed the record. Patient is interviewed and examined at bedside. Patient's care is coordinated with Justyna Glasgow [employer]. Please refer to the documentation above for details of patient's presentation and for discussion of other issues.
--- NOTE | 2018-09-03 19:39 | Emergency Department Note ---
Entered by Danyel Melo acting as a scribe for History of Present Illness General Chief complaint: Stroke/CVA Symptoms Stated complaint: headache Time Seen by Provider: 09/03/18 13:26 Source: patient Mode of arrival: ambulatory History of Present Illness Provider complaint: Stroke/CVASymptoms Onset (ago): hour(s) 2 Location: head Pain Consistency: + constant Quality: + other (stroke/CVA symtoms) Patient is a 68 year old female who presents herself to the ER with complains of stroke/CVA symptoms. The patient is not able to communicate properly. She is accompanies with who states the symptoms began today at 11:45am. The patient is screaming and not able to speak actual words. She is not able to communicate when asked anything about her condition. notes the patient has had a stroke 6 weeks prior. This HPI is limited due to patients inability to communicate. Home Medications Home Medications Medication Instructions Recorded Confirmed Type acidophilus-pectin, citrus 1 cap PO DAILY 07/31/18 09/03/18 History [Acidophilus Probiotic] citalopram 20 mg PO DAILY 07/31/18 09/03/18 History levothyroxine 50 mcg PO DAILY 07/31/18 09/03/18 History lisinopril 2.5 mg PO DAILY 07/31/18 09/03/18 History lubiprostone [Amitiza] 8 mcg PO BIDM 07/31/18 09/03/18 History memantine 10 mg PO BID 07/31/18 09/03/18 History metoprolol succinate 50 mg PO DAILY 07/31/18 09/03/18 History pantoprazole 40 mg PO DAILY 07/31/18 09/03/18 History potassium chloride [Klor-Con M20] 20 meq PO DAILY 07/31/18 09/03/18 History pramipexole 1 mg PO HS 07/31/18 09/03/18 History pregabalin [Lyrica] 100 mg PO TID 07/31/18 09/03/18 History simvastatin 20 mg PO DAILY 07/31/18 09/03/18 History warfarin 2.5 mg PO SUMOWETHFRSA 07/31/18 09/03/18 History warfarin 1.25 mg PO TU 09/03/18 09/03/18 History Allergies Allergy/AdvReac Type Severity Reaction Status Date / Time Bactrim Allergy Unknown . Verified 10/16/16 13:02 doxycycline Allergy Unknown . Verified 09/03/18 14:40 sulfamethoxazole Allergy Unknown . Verified 09/03/18 14:40 trimethoprim Allergy Unknown . Verified 09/03/18 14:40 Past Med/Surg History Medical History Chronic constipation (Chronic) RLS (restless legs syndrome) (Chronic) Chronic pain (Chronic) CKD (chronic kidney disease), stage III (Chronic) Hypertension (Chronic) CVA (cerebral vascular accident) (Chronic) BIRDIE (obstructive sleep apnea) (Chronic) Dyslipidemia (Chronic) Hypothyroidism (Chronic) Surgical History S/P total abdominal hysterectomy (Chronic) H/O neck surgery (Chronic) History of cholecystectomy (Chronic) H/O oophorectomy (Chronic) S/P repair of paraesophageal hernia (Chronic) History of total right hip replacement (Chronic) S/P lumbar fusion (Chronic) H/O hemorrhoidectomy (Chronic) Hx of aortic valve replacement, mechanical (Chronic) H/O mitral valve replacement with mechanical valve (Chronic) Family History Father Heart disease Mother Stroke Social History Preferred Language: Tuvaluan Communication Ability: Effective [employer] Developer Required: No Beliefs That Will Affect Care: None Current Living Situation: Spouse Other Information That Helps Us Care for You: No Feels Safe at Home: Yes Safety Concerns: Feels Safe At This Time Smoking Status: Never smoker Hx Alcohol Use: No Hx Substance Use: No Review of Systems Unobtainable due to cognitive status ROS is limited due to patients inability to communicate. Physical Exam Vital Signs Vital Signs - 24 hr 09/03/18 13:35 09/03/18 14:24 09/03/18 15:56 Temperature Temperature Source Sepsis Recent Fever Within 48 Hours No Sepsis Action Taken by Nursing No Action Required Pulse Rate 70 65 Pulse Rate [Right Finger] Pulse Rate from SpO2 Sensor 65 78 Pulse Rhythm [Right Finger] Pulse Strength [Right Finger] Respiratory Rate 18 15 Respiratory Effort / Characteristics Respiratory Depth Respiratory Pattern Blood Pressure 182/76 H 135/53 L 138/59 L Blood Pressure [Right Arm] Blood Pressure Mean 111 80 85 Blood Pressure Mean [Right Arm] Blood Pressure Position [Right Arm] Pulse Oximetry 99 97 99 Oxygen Delivery Method Room Air 09/03/18 16:02 09/03/18 16:13 09/03/18 16:30 Temperature 36.8 C Temperature Source Oral Sepsis Recent Fever Within 48 Hours Sepsis Action Taken by Nursing Pulse Rate 62 Pulse Rate [Right Finger] Pulse Rate from SpO2 Sensor 76 Pulse Rhythm [Right Finger] Pulse Strength [Right Finger] Respiratory Rate 20 Respiratory Effort / Characteristics Respiratory Depth Respiratory Pattern Blood Pressure 129/56 L 123/49 L Blood Pressure [Right Arm] Blood Pressure Mean 80 73 Blood Pressure Mean [Right Arm] Blood Pressure Position [Right Arm] Pulse Oximetry 99 Oxygen Delivery Method 09/03/18 17:43 09/03/18 19:11 09/03/18 19:23 Temperature 36.8 C Temperature Source Oral Sepsis Recent Fever Within 48 Hours Sepsis Action Taken by Nursing Pulse Rate 63 Pulse Rate [Right Finger] 62 64 Pulse Rate from SpO2 Sensor Pulse Rhythm [Right Finger] Regular Pulse Strength [Right Finger] Normal Respiratory Rate 17 18 Respiratory Effort / Characteristics Non-Labored Respiratory Depth Normal Respiratory Pattern Regular Blood Pressure Blood Pressure [Right Arm] 147/58 H 167/71 H Blood Pressure Mean Blood Pressure Mean [Right Arm] 87 103 Blood Pressure Position [Right Arm] Lying Pulse Oximetry 94 97 Oxygen Delivery Method Room Air GENERAL: Awake, alert, Mumbling, speaking non-sensible words HENT: Normocephalic, atraumatic. Oropharynx unremarkable. EYES: Normal conjunctiva. Sclera non-icteric. NECK: Supple. No nuchal rigidity. FROM. No masses. RESPIRATORY: Clear to auscultation. No wheezes. No rales. Normal respiratory effort. CARDIAC: Normal rate. Normal rhythm. No murmurs. No rubs. Extremities warm and well perfused. Pulses equal. No JVD. GI: Soft, non-distended. No tenderness to palpation. No rebound or guarding. No masses. RECTAL: Deferred. MUSCULOSKELETAL: Atraumatic. Chest examination reveals no tenderness. The back is symmetrical on inspection without obvious abnormality. There is no CVA tenderness to palpation. No joint edema. LOWER EXTREMITIES: Calves are equal size bilaterally and non-tender. No edema. No discoloration. NEURO: Normal sensorium. No sensory or motor deficits noted. Course 1327: Past medical records reviewed. The patient was evaluated in room A12B, and a complete history and physical examination were performed. 1338: I spoke to Alka Sanon regarding the patients case as they have treated the patient before. She said the the patient previously had ence phalopathy caused by UTI in [place]. 1742. I spoke to NEVAEH Trimble who will admit the patient for further treatment. Patient has verbalized agreement to the treatment plan. Consultations Consultation #1: Alka Sanon Time: 13:38 Consultation #2: NEVAEH Trimble Time: 17:42 Administered Medications Clotrimazole (Lotrimin 1%) 1 appln EXT BID OLGA Stop: 10/03/18 20:59 Last Admin: 09/03/18 20:34 Dose: 1 appln Documented by: [id number] Pregabalin (Lyrica) 50 mg PO TID OLGA Stop: 10/03/18 20:59 Last Admin: 09/03/18 20:37 Dose: 50 mg Documented by: [id number] Warfarin Sodium (Coumadin) 2.5 mg PO [id number] [facility] Stop: 10/03/18 18:59 Last Admin: 09/03/18 20:34 Dose: 2.5 mg Documented by: [id number] Discontinued Medications Vancomycin HCl 1,250 mg/ (Sodium Chloride) 525 mls @ 200 mls/hr IV NOW ONE Stop: 09/03/18 16:20 Last Infusion: 09/03/18 19:11 Dose: 0 mls/hr Documented by: [id number] Admin: 09/03/18 16:13 Dose: 200 mls/hr Documented by: [id number] Ceftriaxone Sodium 1,000 mg/ (Dextrose) 60 mls @ 100 mls/hr IV NOW STA Stop: 09/03/18 14:18 Last Infusion: 09/03/18 15:16 Dose: 0 mls/hr Documented by: [id number] Admin: 09/03/18 14:40 Dose: 100 mls/hr Documented by: [id number] Lorazepam (Ativan) 1 mg in 2 mls @ 2 mls/min IV NOW STA Stop: 09/03/18 13:44 Last Admin: 09/03/18 13:57 Dose: 2 mls/min Documented by: [id number] Ioversol (Optiray 320 125ml) 119 ml IV ONCE PRN PRN Reason: Interaction Checking Stop: 09/07/18 15:54 Last Admin: 09/03/18 15:55 Dose: 119 ml Documented by: [id number] Medical Decision Making Differential Diagnosis Differential Diagnosis includes but is not limited to ischemic Stroke, hemorrhagic stroke, bells palsy, mass, neoplasm, migraine headache, seizure, subarachnoid hemorrhage, TIA, and transient global amnesia. Medical Records Attestation: I reviewed the patient's medical records. Home Medications Current Medication List: was personally reviewed by me Laboratory Data Attestation: I reviewed the patient's lab results. Result diagrams: 09/03/18 12:45 09/03/18 12:45 Lab Results 09/03/18 09/03/18 09/03/18 Range/Units 12:45 12:45 12:45 WBC 7.88 (4.8-10.8) K/uL RBC 4.19 L (4.2-5.4) M/uL Hgb 13.1 (12.0-16.0) g/dL Hct 39.4 (37-47) % MCV 94.0 (80-100) fL MCH 31.3 (25-34) pg MCHC 33.2 (32-36) g/dL RDW Std Deviation 47.1 H (36.4-46.3) fL RDW Coeff of Gisele 13.8 (11.5-14.5) % Plt Count 166 (130-400) K/uL MPV 11.7 H (7.4-10.4) fL Immature Gran % (Auto) 0.4 % Neut % (Auto) 64.7 % Lymph % (Auto) 21.2 % Hettinger % (Auto) 10.8 % Eos % (Auto) 2.8 % Baso % (Auto) 0.1 % Immature Gran # (Auto) 0.03 H (0.00-0.02) K/uL Neut # (Auto) 5.10 (1.4-6.5) K/uL Lymph # (Auto) 1.67 (1.2-3.4) K/uL Hettinger # (Auto) 0.85 H (0.11-0.59) K/uL Eos # (Auto) 0.22 (0-0.5) K/uL Baso # (Auto) 0.01 (0-0.2) K/uL PT 25.6 H (9.0-12.0) Seconds INR 2.7 H (0.9-1.1) APTT 43.9 H (21.0-31.0) Seconds PTT Ratio 1.6 Sodium 141 (136-145) mmol/L Potassium 5.0 (3.5-5.1) mmol/L Chloride 108 H (98-107) mmol/L Carbon Dioxide 31 (21-32) mmol/L Anion Gap 1.0 L (3-11) BUN 24 H (7-18) mg/dl Creatinine 1.37 H (0.6-1.2) mg/dl Est Cr Clr Drug Dosing 32.8 ml/min Est GFR ( Amer) 45.8 Est GFR (Non-Af Amer) 39.5 BUN/Creatinine Ratio 17.8 (10-20) Glucose 95 (70-99) mg/dl POC Glucose (70-99) Calcium 8.1 L (8.5-10.1) mg/dl Magnesium 2.1 (1.8-2.4) mg/dl Total Bilirubin 0.5 (0.2-1) mg/dl AST 27 (15-37) U/L ALT 14 (12-78) U/L Alkaline Phosphatase 140 H (45-117) U/L Troponin I < 0.015 (0-0.045) ng/ml Total Protein 7.4 (6.4-8.2) gm/dl Albumin 3.5 (3.4-5.0) gm/dl Globulin 3.9 (2.5-4.0) gm/dl Albumin/Globulin Ratio 0.9 (0.9-2) Urine Color Urine Appearance (Clear) Urine pH (4.5-7.5) Ur Specific Eagle (1.000-1.030) Urine Protein (Negative) Urine Glucose (UA) (Negative) Urine Ketones (Negative) Urine Blood (Negative) Urine Nitrite (Negative) Urine Bilirubin (Negative) Urine Urobilinogen (Negative) Ur Leukocyte Esterase (Negative) 09/03/18 09/03/18 Range/Units 13:45 14:35 WBC (4.8-10.8) K/uL RBC (4.2-5.4) M/uL Hgb (12.0-16.0) g/dL Hct (37-47) % MCV (80-100) fL MCH (25-34) pg MCHC (32-36) g/dL RDW Std Deviation (36.4-46.3) fL RDW Coeff of Gisele (11.5-14.5) % Plt Count (130-400) K/uL MPV (7.4-10.4) fL Immature Gran % (Auto) % Neut % (Auto) % Lymph % (Auto) % Hettinger % (Auto) % Eos % (Auto) % Baso % (Auto) % Immature Gran # (Auto) (0.00-0.02) K/uL Neut # (Auto) (1.4-6.5) K/uL Lymph # (Auto) (1.2-3.4) K/uL Hettinger # (Auto) (0.11-0.59) K/uL Eos # (Auto) (0-0.5) K/uL Baso # (Auto) (0-0.2) K/uL PT (9.0-12.0) Seconds INR (0.9-1.1) APTT (21.0-31.0) Seconds PTT Ratio Sodium (136-145) mmol/L Potassium (3.5-5.1) mmol/L Chloride (98-107) mmol/L Carbon Dioxide (21-32) mmol/L Anion Gap (3-11) BUN (7-18) mg/dl Creatinine (0.6-1.2) mg/dl Est Cr Clr Drug Dosing ml/min Est GFR ( Amer) Est GFR (Non-Af Amer) BUN/Creatinine Ratio (10-20) Glucose (70-99) mg/dl POC Glucose 97 (70-99) Calcium (8.5-10.1) mg/dl Magnesium (1.8-2.4) mg/dl Total Bilirubin (0.2-1) mg/dl AST (15-37) U/L ALT (12-78) U/L Alkaline Phosphatase (45-117) U/L Troponin I (0-0.045) ng/ml Total Protein (6.4-8.2) gm/dl Albumin (3.4-5.0) gm/dl Globulin (2.5-4.0) gm/dl Albumin/Globulin Ratio (0.9-2) Urine Color Yellow Urine Appearance Clear (Clear) Urine pH 5.0 (4.5-7.5) Ur Specific Eagle 1.022 (1.000-1.030) Urine Protein Negative (Negative) Urine Glucose (UA) Negative (Negative) Urine Ketones Trace H (Negative) Urine Blood Negative (Negative) Urine Nitrite Negative (Negative) Urine Bilirubin Negative (Negative) Urine Urobilinogen Negative (Negative) Ur Leukocyte Esterase Negative (Negative) Imaging Data Attestation: I personally reviewed and interpreted this imaging study as follows: Radiologist's Impression: Radiology results as stated below per my review and the radiologist's interpretation: CT ANGIOGRAM OF THE BRAIN; CT ANGIOGRAM OF THE NECK CLINICAL HISTORY: Change in mental status. COMPARISON STUDY: Unenhanced CT of the brain performed concurrently on 09/03/2018. CT angiogram of the head and neck dated 07/31/2018. TECHNIQUE: Following the IV administration of 119 of Optiray 320, CT angiogram of the head and neck was performed from the aortic arch to the vertex. Images are reviewed in the axial, sagittal, and coronal planes. 3-D MIPS images are created and assessed. IV contrast was administered without complication. All measurements were calculated based on NASCET criteria. A dose lowering technique was utilized adhering to the principles of ALARA. FINDINGS: Brain parenchyma: There is age-related involutional change noting mild s ubcortical and periventricular microangiopathic disease. There is no hemorrhage, mass effect, or evidence of acute territorial ischemia by CT criteria. There is no evidence of enhancing mass lesion on the angiogram phase images. The ventricles, sulci, and cisterns are prominent secondary to involutional change. Sepulveda-white matter differentiation is preserved. No extra-axial fluid collection is seen. Thoracic aorta: Visualized portions of the thoracic aorta are normal in caliber. The aortic arch demonstrates standard 3-vessel anatomy. Right carotid arterial system: The right common carotid artery is widely patent, as are the right internal and carotid arteries. Mild atherosclerotic plaque is noted in the carotid bulb. Left carotid arterial system: The left common carotid artery is widely patent. Soft and calcified plaque in the carotid bulb causes less than 50% luminal narrowing at the origin of the left internal carotid artery. The remainder of the left internal carotid artery is widely patent, as is the left internal carotid artery. Vertebral arteries: Patent bilaterally and codominant. Subclavian arteries: Widely patent bilaterally. Intracranial vasculature: The internal carotid arteries are patent at the skull base, as are the anterior and middle cerebral arteries bilaterally. The vertebrobasilar system and posterior cerebral arteries are widely patent. The vertebral arteries are codominant. There is no aneurysm, high-grade stenosis, or focal vessel cut off seen throughout the intracranial circulation. Jugular veins: Widely patent bilaterally. Dural sinuses: Patent. Lung apices: Midline sternotomy wires are noted. Partially visualized upper lobe lung parenchyma appears clear. Soft tissues: The visualized pharyngeal soft tissues are normal in appearance noting angiographic phase technique. The oropharyngeal airway appears widely patent. The salivary and thyroid glands are normal in appearance. No cervical lymphadenopathy is seen. Skeletal structures: The skeletal structures are osteopenic. The calvarium appears intact. The cervical spine is maintained noting multilevel spondylosis and postoperative change. No lytic or blastic lesion is seen. Orbits: The bony orbits are intact. Orbital contents are normal as imaged. Sinuses and mastoids: There is advanced mucosal thickening in the left maxillary antrum. Mild mucosal thickening is noted in the ethmoid sinuses. The remaining paranasal sinuses are clear. The mastoid air cells are well pneumatized. IMPRESSION: 1. There is no hemorrhage, mass effect, or evidence of acute territorial ischemia by CT criteria on this angiographic phase examination. 2. Unremarkable CT angiogram of the brain. No change from 07/31/2018. 3. There is less than 50% stenosis at the origin of the left internal carotid artery. This is unchanged from study performed one month previously. 4. Otherwise unremarkable CT angiogram of the neck. 5. Left maxillary sinus disease as above. Electronically signed by: Amaury Mcgovern M.D. 09/03/2018 4:11 PM Dictated: 09/03/18 1602 Transcribed: 09/03/[address] ANGIOGRAM OF THE BRAIN; CT ANGIOGRAM OF THE NECK CLINICAL HISTORY: Change in mental status. COMPARISON STUDY: Unenhanced CT of the brain performed concurrently on 09/03/2018. CT angiogram of the head and neck dated 07/31/2018. TECHNIQUE: Following the IV administration of 119 of Optiray 320, CT angiogram of the head and neck was performed from the aortic arch to the vertex. Images are reviewed in the axial, sagittal, and coronal planes. 3-D MIPS images are created and assessed. IV contrast was administered without complication. All measurements were calculated based on NASCET criteria. A dose lowering technique was utilized adhering to the principles of ALARA. FINDINGS: Brain parenchyma: There is age-related involutional change noting mild subcortical and periventricular microangiopathic disease. There is no hemorrhage, mass effect, or evidence of acute territorial ischemia by CT criteria. There is no evidence of enhancing mass lesion on the angiogram phase images. The ventricles, sulci, and cisterns are prominent secondary to involutional change. Sepulveda-white matter differentiation is preserved. No extra- axial fluid collection is seen. Thoracic aorta: Visualized portions of the thoracic aorta are normal in caliber. The aortic arch demonstrates standard 3-vessel anatomy. Right carotid arterial system: The right common carotid artery is widely patent, as are the right internal and carotid arteries. Mild atherosclerotic plaque is noted in the carotid bulb. Left carotid arterial system: The left common carotid artery is widely patent. Soft and calcified plaque in the carotid bulb causes less than 50% luminal narrowing at the origin of the left internal carotid artery. The remainder of the left internal carotid artery is widely patent, as is the left internal carotid artery. Vertebral arteries: Patent bilaterally and codominant. Subclavian arteries: Widely patent bilaterally. Intracranial vasculature: The internal carotid arteries are patent at the skull base, as are the anterior and middle cerebral arteries bilaterally. The vertebrobasilar system and posterior cerebral arteries are widely patent. The vertebral arteries are codominant. There is no aneurysm, high-grade stenosis, or focal vessel cut off seen throughout the intracranial circulation. Jugular veins: Widely patent bilaterally. Dural sinuses: Patent. Lung apices: Midline sternotomy wires are noted. Partially visualized upper lobe lung parenchyma appears clear. Soft tissues: The visualized pharyngeal soft tissues are normal in appearance noting angiographic phase technique. The oropharyngeal airway appears widely patent. The salivary and thyroid glands are normal in appearance. No cervical lymphadenopathy is seen. Skeletal structures: The skeletal structures are osteopenic. The calvarium appears intact. The cervical spine is maintained noting multilevel spondylosis and postoperative change. No lytic or blastic lesion is seen. Orbits: The bony orbits are intact. Orbital contents are normal as imaged. Sinuses and mastoids: There is advanced mucosal thickening in the left maxillary antrum. Mild mucosal thickening is noted in the ethmoid sinuses. The remaining paranasal sinuses are clear. The mastoid air cells are well pneumatized. IMPRESSION: 1. There is no hemorrhage, mass effect, or evidence of acute territorial ischemia by CT criteria on this angiographic phase examination. 2. Unremarkable CT angiogram of the brain. No change from 07/31/2018. 3. There is less than 50% stenosis at the origin of the left internal carotid artery. This is unchanged from study performed one month previously. 4. Otherwise unremarkable CT angiogram of the neck. 5. Left maxillary sinus disease as above. Electronically signed by: Amaury Mcgovern M.D. 09/03/2018 4:11 PM Dictated: 09/03/18 1602 Transcribed: 09/03/[address] head/brain wo con CT DOSE: 1518.27 mGy.cm HISTORY: Mental status change Stroke evaluation TECHNIQUE: Multiaxial CT images of the head were performed without the use of intravenous contrast. A dose lowering technique was utilized adhering to the principles of ALARA. Comparison: 07/31/2018 Findings: Mucosal thickening left maxillary sinus. Remaining sinuses are clear. The calvarium and skull base are intact. The ventricles and sulci are within normal limits. There is no mass, hematoma, midline shift, or acute infarct. Impression: No acute intracranial abnormality. Age-related chronic small vessel change. Mucosal thickening left maxillary sinus. The above report was generated using voice recognition software. It may contain grammatical, syntax or spelling errors. Electronically signed by: Nando Hernandez M.D. 09/03/2018 4:04 PM Dictated: 09/03/18 160 Transcribed: 09/03/181600 ECG Data Attestation: I personally reviewed and interpreted this ECG as follows: Indication: other (Stroke/CVA) Rate (beats per minute): 69 Rhythm: normal sinus Findings: no ST depression and no ST elevation Blood Pressure Blood Pressure Findings: Elevated blood pressure Blood Pressure Disposition: further management by hospitalist [facility] Narrative This is a 68-year-old female who presents emergency department complaining of nonsensical speaking. Patient presented exactly this way approximately 1 month ago. At that time she was found to [place] as it was thought she may have had a CVA. Her workup at [place] showed encephalopathy due to UTI. Patient has no evidence of UTI here however has a new rash on her legs which may be fungal in nature. She was started on antibiotics for the rash including Rocephin and vancomycin. The patient was also given Ativan. I did discuss the case with the stroke neurologist at [place] who felt that the patient's presentation is inconsistent with a stroke. I did discuss the case with the hospitalist service who did admit the patient. Family was in agreement with the treatment plan. Impression & Plan Altered mental status, Hypertension Discharge Plan Visit Data *Final* Discharge Date/Time: 09/03/18 18:10 Chief Complaint: Stroke/CVA Symptoms Stated Complaint: headache ED Provider: Bautista Michel Discharge Problem: Altered mental status, Hypertension Patient Disposition: Admitted As Inpatient Discharge Instructions Interventions: ED Discharge Assessment Last Done: 09/03/18 18:10 The scribe's documentation has been prepared under my direction and personally reviewed by me in its entirety. I confirm that the note above accurately reflects all work, treatment, procedures, and medical decision making performed by me.
[2018-09-03] MEDS: WARFARIN SOD 2.5 MG TAB PO SCH (20:34)
[2018-09-03] MEDS: CLOTRIMAZOLE 1% CR 15 GM TUBE EXT SCH (20:34)
[2018-09-03] MEDS: PREGABALIN 50 MG CAP PO SCH (20:37)
[2018-09-03] MEDS ORDERED: SODIUM CHLORIDE 0.9% 1000ML 1,000 ML IV ONE (20:55)
[2018-09-04] MEDS: LEVOTHYROXINE SODIUM 50 MCG TABLET PO SCH (05:36)
[2018-09-04 06:44] LABS: Hematocrit (blood only) 33.4 % (37-47); Hemoglobin 11.2 g/dL (12.0-16.0); Mean Corpuscular Hgb Conc 33.5 g/dL (32-36); Mean Corpuscular Volume 92.8 fL (80-100); Mean Platelet Volume 11.3 fL (7.4-10.4); Platelet Count 131 K/uL (130-400); RDW Coefficient of Variation 13.5 % (11.5-14.5); RDW Standard Deviation 46.1 fL (36.4-46.3); White Blood Count 5.63 K/uL (4.8-10.8)
[2018-09-04 06:56] LABS: INR 2.7 (0.9-1.1); Prothrombin Time 26.1 Seconds (9.0-12.0)
[2018-09-04 07:23] LABS: BUN Creatinine Ratio 18.7 (10-20); Calcium 7.8 mg/dl (8.5-10.1); Creatinine Clr Calc Pharmacy 36.1 ml/min; Est GFR (African American) 52.2
[2018-09-04] MEDS: ACETAMINOPHEN 325 MG TAB PO PRN (08:40)
[2018-09-04] MEDS: METOPROLOL SUCC 50MG EXT REL TAB PO SCH (08:42)
[2018-09-04] MEDS: SIMVASTATIN 20 MG TAB PO SCH (08:42)
[2018-09-04] MEDS: PANTOprazole 40 MG TAB PO SCH (08:42)
[2018-09-04] MEDS: CITALOPRAM 20 MG TAB PO SCH (08:42)
[2018-09-04] MEDS: PREGABALIN 50 MG CAP PO SCH ×3 (08:43→20:07)
[2018-09-04] MEDS: LISINOPRIL 2.5 MG TAB PO SCH (08:43)
[2018-09-04] MEDS: CLOTRIMAZOLE 1% CR 15 GM TUBE EXT SCH ×2 (08:43→20:07)
[2018-09-04] MEDS: LACTOBACILLUS ACIDOPHILUS (FLORANEX) TAB PO SCH (08:43)
[2018-09-04] MEDS: LUBIPROSTONE 8 MCG CAP PO SCH ×2 (08:43→16:08)
[2018-09-04] MEDS ORDERED: POTASSIUM CHLORIDE 20 MEQ TABCR PO SCH (09:00)
--- NOTE | 2018-09-04 12:16 | Psychiatric Consultation ---
Date of Consultation September 04, 2018 Impression / Recommendations Impression 68-year-old female with second episode in the last month of acute onset AMS with aphasia. Diagnoses from previous event included UTI and metabolic encephalopathy. Etiology of current presentation remains unclear. Given sudden onset and resolution of symptoms, there is no evidence to suggest her presentation is the result of an underlying psychiatric condition. Pt also denies personal or family history of symptoms suggestive of a previous psychiatric condition. Acute presentation and history reported suggest a more likely organic cause, with differential of possible medication overuse/misuse, adverse effects of polypharmacy, TIA, encephalopathy, or delirium from other cause. Would suggest further exploring 's reports of dementia diagnosis, as may provide a clearer picture of patient's medical history and possibly her current presentation. Certainly if vascular dementia in combination with mechanical valve replacements and other comorbidities, patient would be at increased risk of TIA and other complications. Communication with prescriber of pregabalin, memantine, and pramipexole would be recommended to determine if medication adjustments should be considered. For now, it is suggested patient continue citalopram 20mg as it is not likely to be contributing to her current presentation. Should symptoms recur, suggest following delirium precautions listed below. Appreciate the opportunity to participate in the care of this patient. Dr. Nika Barber was directly involved in review and discussion of the patient's case and participated in medical decision making regarding treatment recommendations. (1) Altered mental status: 09/04 - Continues citalopram at 20mg, no evidence to suggest a primary psychiatric diagnosis is contributing to symptoms, and highly unlikely citalopram itself would be responsible for AMS - Suggest coordinating care with outpatient prescribers, as suggests dementia diagnosis but both are unsure of providers or type of dementia being considered. Collateral information from these prescribers would be helpful in this case. - Avoid deliriogenic medications (benzodiazepines, anticholinergics, anti- histaminergics, and other centrally acting medications) as may further contribute to AMS - Reorientation to person, place, and time as needed - keep windows open and lights on during daytime, off at night - keep awake and active as able during daylight hours to prevent from confusing day/night - frequent support and encouragement from staff and family - permit personal items as able/necessary to increase comfort in hospital setting Altered mental status type: unspecified Qualified Code(s): R41.82 - Altered mental status, unspecified Inventory Assets Strengths: support of Needs: limited history CPT Code Initial Consultation: 03522 Psych History Identifying Data 68-year-old female admitted medically due to altered mental status, 1 month following an admission at [place] for similar stroke-like symptoms. Psychiatric consultation requested to assist with determination of etiology of symptoms, specifically for AMS and medication adjustments. Information is gathered from medical documentation and the patient/. Despite 's presence, history remains limited and is not clearly reliable. Chief Complaint "I just started feeling dizzy, I said I needed to sit down". History of Present Illness Magda Muñoz is a 68-year-old female with PMH of CKD, RLS, HTN, CVA, hypothyroidism, dyslipidemia, BIRDIE, and s/p aortic and mitral mechanical valve replacement. admits to history of dementia. Pt presented to the ED via ambulance due to AMS and persistent babbling. 1 month prior to this admission, patient had been lifeflighted to [facility] for stroke-like symptoms with concern for acute CVA. Pt's symptoms were ultimately presumed to be due to metabolic encephalopathy and UTI. Pt is seen today on psychiatric consult service to asses for recurrence of these symptoms. Pt is willing for , "Juvenal", to remain in room and provide collateral information. Pt is also seen along with psychiatric liaison nurse. states he and his had been attending to tasks in their garage when patient suddenly became confused and "began just babbling on and on." states he was unable to make out patient's speech. He admits her symptoms were similar to what he had witnessed 1 month prior, and he was concerned again for stroke or UTI. Pt reports recalling a feeling of dizziness when symptoms began stating, "I told him I just needed to sit down for a bit." Both deny any acute stressor prior to either event, or any ongoing situational stressors at this time. Pt and have limited recall of duration of patient's medications, stating they are unsure when she began Celexa, or other medications - but believed it to be "oh, a long time." Pt denies history of significant anxiety or depressive symptoms, denies history of outpatient psychiatric treatment, denies inpatient mental health admission, history of suicide attempts, and any family history of similar scenarios. She does not feel like her mood is currently low, and does not voice any concerns at present of a depressive disorder. When reviewing medications and their common reasons for use, patient's states that patient has a history of dementia. He is unsure how long she has been with this diagnosis, who she is seeing for treatment/medications, as well as the specific type of dementia for which she is being treated. They are both unsure of when her last visit was, or any recent changes in medication. Pt denies SI/HI, A/V hallucinations, paranoia, symptoms consistent with a bipolar presentation, or other symptoms consistent with a specific psychiatric diagnosis. Past Psychiatric History Previous Psych History: denies - believes PCP manages citalopram prescription but patient/ unsure of when it was initiated or for what symptoms Current Psychiatric Diagnosis: none on record Outpatient Services: None Previous Psych Admissions: None History of Previous Suicide Attempt: No Past Medication Trials: No knowledge of previous antidepressant trials Allergies Allergy/AdvReac Type Severity Reaction Status Date / Time Bactrim Allergy Unknown . Verified 10/16/16 13:02 doxycycline Allergy Unknown . Verified 09/03/18 14:40 sulfamethoxazole Allergy Unknown . Verified 09/03/18 14:40 trimethoprim Allergy Unknown . Verified 09/03/18 14:40 Home Medications Home Medications Medication Instructions Recorded Confirmed Type acidophilus-pectin, citrus 1 cap PO DAILY 07/31/18 09/03/18 History [Acidophilus Probiotic] citalopram 20 mg PO DAILY 07/31/18 09/03/18 History levothyroxine 50 mcg PO DAILY 07/31/18 09/03/18 History lisinopril 2.5 mg PO DAILY 07/31/18 09/03/18 History lubiprostone [Amitiza] 8 mcg PO BIDM 07/31/18 09/03/18 History memantine 10 mg PO BID 07/31/18 09/03/18 History metoprolol succinate 50 mg PO DAILY 07/31/18 09/03/18 History pantoprazole 40 mg PO DAILY 07/31/18 09/03/18 History potassium chloride [Klor-Con M20] 20 meq PO DAILY 07/31/18 09/03/18 History pramipexole 1 mg PO HS 07/31/18 09/03/18 History pregabalin [Lyrica] 100 mg PO TID 07/31/18 09/03/18 History simvastatin 20 mg PO DAILY 07/31/18 09/03/18 History warfarin 2.5 mg PO SUMOWETHFRSA 07/31/18 09/03/18 History warfarin 1.25 mg PO TU 09/03/18 09/03/18 History Family History Denies known family history of depression, anxiety, bipolar presentation, schizophrenia, or other clear psychiatric diagnoses. Substance Abuse History Pt denies use of tobacco, alcohol, or other substances. No heavy experimentation with illicit substances in the past. Drinks tea on a daily basis. 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) Marital Status: (nearly 49 years to Kelvin "Juvenal") Number Of Children: 2 - son who lives with patient and daughter Beliefs That Will Affect Care: [employer] ([employer]) Patient History Medical History Chronic constipation (Chronic) RLS (restless legs syndrome) (Chronic) Chronic pain (Chronic) CKD (chronic kidney disease), stage III (Chronic) Hypertension (Chronic) CVA (cerebral vascular accident) (Chronic) BIRDIE (obstructive sleep apnea) (Chronic) Dyslipidemia (Chronic) Hypothyroidism (Chronic) Surgical History S/P total abdominal hysterectomy (Chronic) H/O neck surgery (Chronic) History of cholecystectomy (Chronic) H/O oophorectomy (Chronic) S/P repair of paraesophageal hernia (Chronic) History of total right hip replacement (Chronic) S/P lumbar fusion (Chronic) H/O hemorrhoidectomy (Chronic) Hx of aortic valve replacement, mechanical (Chronic) H/O mitral valve replacement with mechanical valve (Chronic) Family History Father Heart disease Mother Stroke Social History Preferred Language: Maldivian Communication Ability: Effective Envelope Machine Adjuster Required: No Beliefs That Will Affect Care: [employer] ([employer]) Current Living Situation: Spouse Other Information That Helps Us Care for You: No Feels Safe at Home: Yes Safety Concerns: Feels Safe At This Time Smoking Status: Never smoker Hx Alcohol Use: No Hx Substance Use: No Physical Exam Psychiatric Orientation: alert, oriented x 3 and cooperative Apperance: appropriately dressed (in hospital gown), appropriately groomed and appeared stated age Eye Contact: + fair eye contact moves very little during examination, weak hand-shake, limited movement of facial muscles when speaking brief responses to questions, soft tone, muffled at times but responses are appropriate Affect: + blunted affect (appearing fatigued) "fine" and "the medication is good, I don't have low mood" Thought Process: goal directed thought process and clear/coherent thought process Thought Content: reality based without delusions Suicidal Thoughts: denies suicidal thoughts Homicidal Thoughts: denies homicidal thoughts Hallucinations: no auditory hallucinations and no visual hallucinations Cognition: attention grossly intact and language grossly intact; + recent memory not intact and + remote memory not intact (unable to recall current president, previous president, or name [place] ) Deficit in memory noted - unable to recall current president, previous president, or name large [place] [facility] - once responding with "Erving". Recalls events from yesterday, but unsure of names of prescribers, past appointments, etc. Estimated Intelligence: consistent with education level Insight: + fair insight Judgement: + fair judgement Vital Signs (Past 24 Hours) Last Vital Signs Temp 36.8 C 09/04/18 06:44 Pulse 88 09/04/18 11:50 Resp 18 09/04/18 11:50 BP 128/66 09/04/18 11:50 Pulse Ox 95 09/04/18 11:50 Review of Systems Constitutional: reports pain in occipital region since before admission Cardiovascular: denied Respiratory: denied Gastrointestinal: denied Neurological: reports ongoing weakness Psychiatric: denies symptoms other than stated above Total of at least 10 systems reviewed, pertinent positives as above and in HPI. Results & Data Medications Administered Acetaminophen (Tylenol) 650 mg PO Q4H PRN PRN Reason: pain/fever Stop: 10/03/18 18:32 Last Admin: 09/04/18 08:40 Dose: 650 mg Documented by: [id number] Citalopram Hydrobromide (Celexa) 20 mg PO DAILY [facility] Stop: 10/04/18 08:59 Last Admin: 09/04/18 08:42 Dose: 20 mg Documented by: [id number] Clotrimazole (Lotrimin 1%) 1 appln EXT BID [facility] Stop: 10/03/18 20:59 Last Admin: 09/04/18 08:43 Dose: 1 appln Documented by: [id number] Admin: 09/03/18 20:34 Dose: 1 appln Documented by: [id number] Lactobacillus Acidophilus (Floranex) 1 tab PO DAILY [facility] Stop: 10/04/18 08:59 Last Admin: 09/04/18 08:43 Dose: 1 tab Documented by: [id number] Levothyroxine Sodium (Synthroid) 50 mcg PO DAILYBB [facility] Stop: 10/04/18 06:29 Last Admin: 09/04/18 05:36 Dose: 50 mcg Documented by: [id number] Lisinopril (Zestril) 2.5 mg PO DAILY [facility] Stop: 10/04/18 08:59 Last Admin: 09/04/18 08:43 Dose: 2.5 mg Documented by: [id number] Lubiprostone (Amitiza) 8 mcg PO BIDM [facility] Stop: 10/04/18 07:59 Last Admin: 09/04/18 08:43 Dose: 8 mcg Documented by: [id number] Metoprolol Succinate (Toprol Xl) 50 mg PO DAILY [facility] Stop: 10/04/18 08:59 Last Admin: 09/04/18 08:42 Dose: 50 mg Documented by: [id number] Pantoprazole Sodium (Protonix) 40 mg PO DAILY [facility] Stop: 10/04/18 08:59 Last Admin: 09/04/18 08:42 Dose: 40 mg Documented by: [id number] Pregabalin (Lyrica) 50 mg PO TID [facility] Stop: 10/03/18 20:59 Last Admin: 09/04/18 08:43 Dose: 50 mg Documented by: [id number] Admin: 09/03/18 20:37 Dose: 50 mg Documented by: [id number] Simvastatin (Zocor) 20 mg PO DAILY [facility] Stop: 10/04/18 08:59 Last Admin: 09/04/18 08:42 Dose: 20 mg Documented by: [id number] Warfarin Sodium (Coumadin) 2.5 mg PO [id number] [facility] Stop: 10/03/18 18:59 Last Admin: 09/03/18 20:34 Dose: 2.5 mg Documented by: [id number]
[2018-09-04] MEDS: WARFARIN SOD 2.5 MG TAB PO SCH (16:08)
--- NOTE | 2018-09-04 22:57 | Hospitalist Progress Note ---
Date of Service September 04, 2018 Assessment & Plan (1) Altered mental status: No acute findings on CT / CTA of head & neck. Similar event in July- [place] [facility] [place] apparently no acute neuro findings. Possible metabolic encephalopathy secondary to medications. Improved. (2) Hx of aortic valve replacement, mechanical: Continue anticoagulation with warfarin. (3) H/O mitral valve replacement with mechanical valve: Continue anticoagulation with warfarin. (4) Hypertension: Continue lisinopril. (5) Dyslipidemia: Continue simvastatin. (6) Hypothyroidism: Check last TSH. Continue levothyroxine. (7) CKD (chronic kidney disease), stage III: Creatinine at time of admission was 1.37. Creatinine today 1.23. Follow. (8) Chronic pain: Decreased dose of pregabalin due to confusion. (9) RLS (restless legs syndrome): Holding pramipexole due to confusion. (10) Tinea corporis: Continue clotrimazole. (11) DVT prophylaxis: Anticoagulated on warfarin. (12) Discharge planning issues: Discharge disposition to be determined. Family Medicine follow-up with Dr. Bass. Subjective Recheck for multiple problems. Admitted yesterday with confusion. Pt seen in her room around 1750. She states that she feels better. Denies fever. No chest pain. No cough or SOB. No nausea, vomiting, diarrhea. Has Garcia catheter, but doesn't know why. Physical Exam Vital Signs (Past 24 Hours): Last Vital Signs Temp 36.9 C 09/04/18 20:00 Pulse 60 09/04/18 20:00 Resp 19 09/04/18 20:00 BP 120/63 09/04/18 20:00 Pulse Ox 95 09/04/18 20:00 Constitutional: no acute distress Respiratory: no respiratory distress Auscultation: lungs clear to auscultation bilaterally Cardiovascular: Rate/Rhythm: regular rate and regular rhythm Heart Sounds: + abnormal S1 (mechanical valve sounds) and no gallop Vessels: no JVD Extremities: no calf tenderness and no edema Gastrointestinal (Abdomen): normal bowel sounds, soft, nontender, no hepatosplenomegaly Skin: + rash (rashes LLE consistent with tinea coporis) Psychiatric: Orientation: alert (oriented to person + place; states that year is 1919; cannot name president) Results & Data Laboratory Results Laboratory Results - last 24 hr 09/04/18 09/04/18 09/04/18 06:03 06:03 06:03 WBC 5.63 RBC 3.60 L Hgb 11.2 L Hct 33.4 L MCV 92.8 MCH 31.1 MCHC 33.5 RDW Std Deviation 46.1 RDW Coeff of Gisele 13.5 Plt Count 131 MPV 11.3 H PT 26.1 H INR 2.7 H Sodium 142 Potassium 4.0 D Chloride 111 H Carbon Dioxide 27 Anion Gap 4.0 BUN 23 H Creatinine 1.23 H Est Cr Clr Drug Dosing 36.1 Est GFR ( Amer) 52.2 Est GFR (Non-Af Amer) 45.0 BUN/Creatinine Ratio 18.7 Glucose 78 Calcium 7.8 L (1) Altered mental status Altered mental status type: unspecified Qualified Code(s): R41.82 - Altered mental status, unspecified (2) Hypertension Hypertension type: unspecified Qualified Code(s): I10 - Essential (primary) hypertension
[2018-09-05] MEDS: LEVOTHYROXINE SODIUM 50 MCG TABLET PO SCH (05:54)
[2018-09-05 06:48] LABS: BUN Creatinine Ratio 19.6 (10-20); Bilirubin Direct 0.1 mg/dl (0-0.2); Calcium 8.1 mg/dl (8.5-10.1); Creatinine Clr Calc Pharmacy 33.4 ml/min; Est GFR (African American) 47.9; Est GFR (Non-African American) 41.3
[2018-09-05 06:50] LABS: Albumin Globulin Ratio 0.8 (0.9-2); Bilirubin,Total 0.8 mg/dl (0.2-1); Globulin 3.6 gm/dl (2.5-4.0); Total Protein 6.6 gm/dl (6.4-8.2)
[2018-09-05] MEDS: PANTOprazole 40 MG TAB PO SCH (08:43)
[2018-09-05] MEDS: LACTOBACILLUS ACIDOPHILUS (FLORANEX) TAB PO SCH (08:43)
[2018-09-05] MEDS: CITALOPRAM 20 MG TAB PO SCH (08:44)
[2018-09-05] MEDS: LUBIPROSTONE 8 MCG CAP PO SCH ×2 (08:44→15:53)
[2018-09-05] MEDS: METOPROLOL SUCC 50MG EXT REL TAB PO SCH (08:44)
[2018-09-05] MEDS: SIMVASTATIN 20 MG TAB PO SCH (08:45)
[2018-09-05] MEDS: LISINOPRIL 2.5 MG TAB PO SCH (08:45)
[2018-09-05] MEDS: CLOTRIMAZOLE 1% CR 15 GM TUBE EXT SCH ×2 (08:45→20:44)
[2018-09-05] MEDS: PREGABALIN 50 MG CAP PO SCH ×3 (08:48→20:44)
[2018-09-05] MEDS: WARFARIN SOD 2.5 MG TAB PO SCH (15:53)
[2018-09-05] MEDS: ACETAMINOPHEN 325 MG TAB PO PRN (22:02)
--- NOTE | 2018-09-05 22:08 | Hospitalist Progress Note ---
Date of Service September 05, 2018 Assessment & Plan (1) Altered mental status: No acute findings on CT / CTA of head & neck. Similar [place] July[place] [facility] [place] no acute neuro findings. Possible metabolic encephalopathy secondary to medications. Improved. (2) Hx of aortic valve replacement, mechanical: Continue anticoagulation with warfarin. (3) H/O mitral valve replacement with mechanical valve: Continue anticoagulation with warfarin. (4) Arrhythmia: Run of PAT today. Lytes OK. Continue cardiac monitoring. (5) Hypertension: Continue lisinopril. (6) Dyslipidemia: Continue simvastatin. (7) Hypothyroidism: Check last TSH. Continue levothyroxine. (8) CKD (chronic kidney disease), stage III: Creatinine at time of admission was 1.37. Creatinine today 1.32. Follow. (9) Chronic pain: Decreased dose of pregabalin due to confusion. (10) RLS (restless legs syndrome): Holding pramipexole due to confusion. (11) Tinea corporis: Continue clotrimazole. (12) DVT prophylaxis: Anticoagulated on warfarin. (13) Discharge planning issues: Discharge disposition to be determined. Rehab or skilled care discussed, but pt reluctant. Family Medicine follow-up with Dr. Bass. Subjective Recheck for multiple problems. Pt seen in her room around 2024. Feels better. Run of PAT today followed by 2-second pause- asymptomatic. Denies fever. No chest pain. No cough or SOB. No nausea, vomiting, diarrhea. Garcia cath removed. Physical Exam Vital Signs (Past 24 Hours): Last Vital Signs Temp 37.2 C 09/05/18 15:24 Pulse 56 L 09/05/18 15:24 Resp 20 09/05/18 15:24 BP 153/70 H 09/05/18 15:24 Pulse Ox 97 09/05/18 15:24 Constitutional: no acute distress Respiratory: no respiratory distress Auscultation: lungs clear to auscultation bilaterally Cardiovascular: Rate/Rhythm: regular rate and regular rhythm Heart Sounds: + abnormal S1 (mechanical valve sounds) and no gallop Vessels: no JVD Extremities: no calf tenderness and no edema Gastrointestinal (Abdomen): normal bowel sounds, soft, nontender, no hepatosplenomegaly Skin: no rashes, warm and dry + rash (rashes LLE consistent with tinea coporis) Psychiatric: Orientation: alert (oriented to person, place, and year; cannot name president) Results & Data Laboratory Results Laboratory Results - last 24 hr 09/05/18 05:46 Sodium 142 Potassium 4.0 Chloride 111 H Carbon Dioxide 27 Anion Gap 4.0 BUN 26 H Creatinine 1.32 H Est Cr Clr Drug Dosing 33.4 Est GFR ( Amer) 47.9 Est GFR (Non-Af Amer) 41.3 BUN/Creatinine Ratio 19.6 Glucose 78 Calcium 8.1 L Total Bilirubin 0.8 Direct Bilirubin 0.1 AST 15 ALT 11 L Alkaline Phosphatase 123 H Total Protein 6.6 Albumin 3.0 L Globulin 3.6 Albumin/Globulin Ratio 0.8 L (1) Altered mental status Altered mental status type: unspecified Qualified Code(s): R41.82 - Altered mental status, unspecified (2) Hypertension Hypertension type: unspecified Qualified Code(s): I10 - Essential (primary) hypertension
[2018-09-06 05:57] LABS: INR 2.4 (0.9-1.1); Prothrombin Time 23.5 Seconds (9.0-12.0)
[2018-09-06] MEDS: LEVOTHYROXINE SODIUM 50 MCG TABLET PO SCH (06:10)
[2018-09-06 06:25] LABS: BUN Creatinine Ratio 19.6 (10-20); Creatinine Clr Calc Pharmacy 29.9 ml/min; Est GFR (African American) 42.1; Est GFR (Non-African American) 36.3; Magnesium 1.7 mg/dl (1.8-2.4); Potassium 3.8 mmol/L (3.5-5.1)
[2018-09-06] MEDS: CITALOPRAM 20 MG TAB PO SCH (08:50)
[2018-09-06] MEDS: LISINOPRIL 2.5 MG TAB PO SCH (08:50)
[2018-09-06] MEDS: SIMVASTATIN 20 MG TAB PO SCH (08:50)
[2018-09-06] MEDS: PANTOprazole 40 MG TAB PO SCH (08:50)
[2018-09-06] MEDS: LACTOBACILLUS ACIDOPHILUS (FLORANEX) TAB PO SCH (08:50)
[2018-09-06] MEDS: LUBIPROSTONE 8 MCG CAP PO SCH (08:50)
[2018-09-06] MEDS: METOPROLOL SUCC 50MG EXT REL TAB PO SCH (08:50)
[2018-09-06] MEDS: CLOTRIMAZOLE 1% CR 15 GM TUBE EXT SCH (08:51)
[2018-09-06] MEDS: PREGABALIN 50 MG CAP PO SCH (08:55)
[2018-09-06] MEDS ORDERED: MAGNESIUM OXIDE 400 MG TAB PO SCH (09:00)
--- NOTE | 2018-09-06 10:26 | Hospitalist Progress Note ---
Date of Service September 06, 2018 Assessment & Plan (1) Altered mental status: No acute findings on CT / CTA of head & neck. Similar [place] in July[place] [facility] [place] findings. Possible metabolic encephalopathy secondary to medications. No apparent UTI or other infection at this time. Memantine and pramipexole discontinued. Prebabalin dose decreased from 100 mg TID to 100 mg BID. Mental status improved by discharge. (2) Hx of aortic valve replacement, mechanical: Continue anticoagulation with warfarin. INR's 2.7, 2.7, 2.4 with goal of 2.5-3.5 for mechanical MVR / AVR. Increase warfarin dose to 2.5 mg daily. Ongoing adjustments per [facility]ticoagulation [facility]. (3) H/O mitral valve replacement with mechanical valve: Continue anticoagulation with warfarin. (4) Arrhythmia: Run of short PAT x 1- no recurrence. Lytes OK. (5) Hypertension: Continue lisinopril. (6) Dyslipidemia: Continue simvastatin. (7) Hypothyroidism: Check last TSH. Continue levothyroxine. (8) CKD (chronic kidney disease), stage III: Creatinine at time of admission was 1.37. Creatinine day of discharge = 1.47. Follow. (9) Chronic pain: Decreased dose of pregabalin to 100 mg BID due to confusion. (10) RLS (restless legs syndrome): Stopped pramipexole due to confusion. (11) Dementia: Memantine discontinued. Alert, oriented to person, place, & year. Unable to name president. Able to recall questions from yesterday. Follow cognitive status. (12) Tinea corporis: Received clotrimazole with improvement. (13) DVT prophylaxis: Anticoagulated on warfarin. (14) Discharge planning issues: Rehab or skilled care discussed, but pt declined. Discharge to home. Family Medicine follow-up with Dr. Bass. Pt's pharmacy contacted with medication changes. Subjective Recheck for multiple problems. Pt seen in her room around 1005. visiting. Feels better. Telemetry data reviewed- no significant arrhythmias. Denies fever. No chest pain. No cough or SOB. No nausea, vomiting, diarrhea. Voiding without difficulty. Ambulating independently with walker. Physical Exam Vital Signs (Past 24 Hours): Last Vital Signs Temp 36.6 C 09/06/18 08:07 Pulse 59 L 09/06/18 08:07 Resp 22 09/06/18 08:07 BP 151/70 H 09/06/18 08:07 Pulse Ox 97 09/06/18 08:07 Constitutional: no acute distress Respiratory: no respiratory distress Auscultation: lungs clear to au scultation bilaterally Cardiovascular: Rate/Rhythm: regular rate and regular rhythm Heart Sounds: + abnormal S1 (mechanical valve sounds) and no gallop Vessels: no JVD Extremities: no calf tenderness and no edema Gastrointestinal (Abdomen): normal bowel sounds, soft, nontender, no hepatosplenomegaly Skin: no rashes, warm and dry + rash (rashes LLE consistent with tinea coporis) Psychiatric: Orientation: alert (oriented to person, place, and year; cannot name president) Results & Data Laboratory Results Laboratory Results - last 24 hr 09/06/18 09/06/18 05:13 05:13 PT 23.5 H INR 2.4 H Sodium 140 Potassium 3.8 Chloride 108 H Carbon Dioxide 28 Anion Gap 4.0 BUN 29 H Creatinine 1.47 H Est Cr Clr Drug Dosing 29.9 Est GFR ( Amer) 42.1 Est GFR (Non-Af Amer) 36.3 BUN/Creatinine Ratio 19.6 Glucose 82 Calcium 8.0 L Magnesium 1.7 L (1) Altered mental status Altered mental status type: unspecified Qualified Code(s): R41.82 - Altered mental status, unspecified (2) Hypertension Hypertension type: unspecified Qualified Code(s): I10 - Essential (primary) hypertension
[2018-09-06] MEDS ORDERED: WARFARIN SOD 2.5 MG TAB PO ONE (10:28)
[2018-09-06 11:58] VITALS: BP 145/67; PULSE 60; TEMP 98.8; O2SAT 94
--- NOTE | 2018-09-08 14:30 | Discharge Summary ---
Date of Service Date of admission: 09/03/18 Date of discharge: 09/06/18 Admission HPI Per Admitting Provider Magda Muñoz is a 68-year-old female with PMH of CKD, RLS, HTN, CVA, hypothyroidism, dyslipidemia, BIRDIE, and s/p aortic and mitral mechanical valve replacement. admits to history of dementia. Pt presented to the ED via ambulance due to AMS and persistent babbling. 1 month prior to this admission, patient had been lifeflighted to [facility] for stroke-like symptoms with concern for acute CVA. Pt's symptoms were ultimately presumed to be due to metabolic encephalopathy and UTI. Pt is seen today on psychiatric consult service to asses for recurrence of these symptoms. Pt is willing for , "Juvenal", to remain in room and provide collateral information. Pt is also seen along with psychiatric liaison nurse. states he and his had been attending to tasks in their garage when patient suddenly became confused and "began just babbling on and on." states he was unable to make out patient's speech. He admits her symptoms were similar to what he had witnessed 1 month prior, and he was concerned again for stroke or UTI. Pt reports recalling a feeling of dizziness when symptoms began stating, "I told him I just needed to sit down for a bit." Both deny any acute stressor prior to either event, or any ongoing situational stressors at this time. Pt and have limited recall of duration of patient's medications, stating they are unsure when she began Celexa, or other medications - but believed it to be "oh, a long time." Pt denies history of significant anxiety or depressive symptoms, denies history of outpatient psychiatric treatment, denies inpatient mental health admission, history of suicide attempts, and any family history of similar scenarios. She does not feel like her mood is currently low, and does not voice any concerns at present of a depressive disorder. When reviewing medications and their common reasons for use, patient's states that patient has a history of dementia. He is unsure how long she has been with this diagnosis, who she is seeing for treatment/medications, as well as the specific type of dementia for which she is being treated. They are both unsure of when her last visit was, or any recent changes in medication. Pt denies SI/HI, A/V hallucinations, paranoia, symptoms consistent with a bipolar presentation, or other symptoms consistent with a specific psychiatric diagnosis. Admission Exam Per Admitting Provider Constitutional: WD/WN, vitals as above Eyes: PERRL, conjunctivae normal, anicteric sclerae ENMT: external ear and nose normal, oropharynx normal Respiratory: normal respiratory effort, lungs clear to auscultation Cardiovascular: Rate/Rhythm: regular rate and regular rhythm Vessels: normal peripheral pulses Extremities: no edema Gastrointestinal (Abdomen): Inspection/Auscultation: + abdomen distended Percussion/Palpation: abdomen soft; abdomen nontender and no hepatosplenomegaly Musculoskeletal: no cyanosis or clubbing, extremities motor strength 5/5 Skin: + rash (Tinea-like rash noted to the left anterior gibson with a small amount of serous seepage) Skin warm and dry Neurologic: PERRL, EOMI, accommodation nl, no face palsy, no dysarthria Mildly slow to respond, no gross focal deficits noted Psychiatric: A+Ox3, euthymic affect (Forgetful) Insight: + limited insight Principal Diagnosis altered mental status- possible metabolic encephalopathy secondary to medications paroxysmal atrial tachycardia Discharge Data Allergies Allergy/AdvReac Type Severity Reaction Status Date / Time Bactrim Allergy Unknown . Verified 10/16/16 13:02 doxycycline Allergy Unknown . Verified 09/03/18 14:40 sulfamethoxazole Allergy Unknown . Verified 09/03/18 14:40 trimethoprim Allergy Unknown . Verified 09/03/18 14:40 Consultations 09/03/18 17:42 ED Decision to Admit Stat 09/03/18 18:33 Consult Case Management - Discharge Planning Routine Consult Psychiatry Routine Ordered Studies 09/03/18 13:34 CT angio head w con Stat CT angio neck with con Stat CT head/brain wo con Stat Hospital Course (1) Altered mental status: No acute findings on CT / CTA of head & neck. Similar event in July- transferred to [facility], apparently no acute neuro findings. Possible metabolic encephalopathy secondary to medications. No apparent UTI or other infection at this time. Consider possibility of arrhythmia with transient cerebral hypoperfusion. Memantine and pramipexole discontinued. Prebabalin dose decreased from 100 mg TID to 100 mg BID. Mental status improved by discharge. (2) Hx of aortic valve replacement, mechanical: Continue anticoagulation with warfarin. INR's 2.7, 2.7, 2.4 with goal of 2.5-3.5 for mechanical MVR / AVR. Increase warfarin dose to 2.5 mg daily. Ongoing adjustments per Anticoagulation Clinic. (3) H/O mitral valve replacement with mechanical valve: Continue anticoagulation with warfarin. (4) Arrhythmia: Run of short PAT x 1- no recurrence. Lytes OK. Possible that neuro symptoms could be secondary to arrhythmia with transient cerebral hypoperfusion. Outpatient cardiac monitoring with ZIO patch recommended. (5) Hypertension: Continue lisinopril. (6) Dyslipidemia: Continue simvastatin. (7) Hypothyroidism: Check last TSH. Continue levothyroxine. (8) CKD (chronic kidney disease), stage III: Creatinine at time of admission was 1.37. Creatinine day of discharge = 1.47. Follow. (9) Chronic pain: Decreased dose of pregabalin to 100 mg BID due to confusion. (10) RLS (restless legs syndrome): Stopped pramipexole due to confusion. (11) Dementia: Memantine discontinued. Alert, oriented to person, place, & year. Unable to name president. Able to recall questions from yesterday. Follow cognitive status. (12) Tinea corporis: Received clotrimazole with improvement. (13) DVT prophylaxis: Anticoagulated on warfarin. (14) Discharge planning issues: Rehab or skilled care discussed, but pt declined. Discharge to home. Family Medicine follow-up with Dr. Bass. Pt's pharmacy contacted with medication changes. Total Time Total Time Spent Total Time Spent (In Minutes): 40 Discharge Plan Discharge Items Patient Disposition: Home - Self-Care Reason For Visit: confusion Discharge Diagnosis: confusion- no sign of stroke or bladder infection Condition: Good Discharge Goals: Improve disease control Activity: Resume your previous activity Activity Comment: Please use walker. Non-emergency contact: Primary Care Provider, Hospitalist and [employer] Civil Engineer Call non-emergency contact if: you have any medication questions, your symptoms worsen and your temperature is above 101 Follow-up/Referrals: Gomez Bass MD [Primary Care Provider] - (09/10/2018 1:00 PM Astrid Amezcua MD (covering for Dr. Bass)) Diet: Heart Healthy Addtl Provider Instructions: New warfarin (Coumadin) dose is 2.5 mg every day until further notice. Dose given to you at hospital on Saturday- next dose Thursday 09/07. Please ask Dr. Amezcua to order ZIO patch for you to monitor your heart rhythm. Use lotrimin cream for rash on legs twice a day until cleared. No prescription necessary. OTHER INSTRUCTIONS: Seek medical attention if you have: * confusion, trouble speaking, dizziness * temperature above 101 * chest pain or trouble breathing * abdominal pain, nausea, vomiting * diarrhea, dark stools or bloody stools * any unanswered questions or concerns Call 911 if symptoms are severe. Call if you have any questions or problems. My cell # is [phone]. You can also reach a [facility] hospitalist on duty at 24 hours a day by calling [phone]. Prescriptions: New warfarin 2.5 mg tablet 2.5 mg PO DAILY Qty: 30 RF: 0 magnesium oxide 400 mg capsule 400 mg PO BID Qty: 60 RF: 5 Lyrica 100 mg capsule 100 mg PO BID Qty: 60 RF: 5 Continued citalopram 20 mg tablet 20 mg PO DAILY RF: 0 levothyroxine 50 mcg tablet 50 mcg PO DAILY RF: 0 lisinopril 2.5 mg tablet 2.5 mg PO DAILY RF: 0 lubiprostone 8 mcg capsule 8 mcg PO BIDM RF: 0 metoprolol succinate 50 mg Tablet Extended Release 24 Hr 50 mg PO DAILY RF: 0 potassium chloride 20 mEq tablet,ER particles/crystals 20 meq PO DAILY RF: 0 pantoprazole 40 mg Tablet,Delayed Release (Dr/Ec) 40 mg PO DAILY RF: 0 simvastatin 20 mg tablet 20 mg PO DAILY RF: 0 acidophilus-pectin, citrus [Acidophilus Probiotic] 100 million cell-10 mg Capsule 1 cap PO DAILY RF: 0 Discontinued pramipexole 1 mg tablet 1 mg PO HS RF: 0 warfarin 2.5 mg tablet 2.5 mg PO SUMOWETHFRSA RF: 0 memantine 10 mg tablet 10 mg PO BID RF: 0 Lyrica 100 mg capsule 100 mg PO TID RF: 0 warfarin 2.5 mg Tablet 1.25 mg PO TU RF: 0 Stand-Alone Forms: My [facility] Discharge Orders: Discharge Order (Routine); Ordered 09/06/18 Ordered By: Marvin Reeves Admission Data Admit Date/Time: 09/03/18 17:51 Attending Provider: Marvin Reeves Admit Provider: Ovidio Vidal Primary Care Provider: Gomez Bass Other Providers: Ovidio Vidal ; Richard Sousa I Service: Telemetry Other Interventions: Discharge Summary Assessment (RN) Last Done: 09/06/18 11:23 DC Date/Time DO NOT enter until pt leaves facility: 09/06/18 13:47
[2018-09-09] MEDS ORDERED: WARFARIN SOD 1.25 MG TAB PO SCH (16:00)
== END 2018-09-06 13:47 | disposition home or self-care (01) | DRG 93 ==
LOC: ED 13:16 → 2N 17:51

== ENCOUNTER 2019-01-27 05:49 | Inpatient (IN) ==
--- NOTE | 2019-01-27 06:24 | XRay Report ---
XR chest 1V portable CLINICAL HISTORY: aphasia dysphagia. Pain. COMPARISON STUDY: 10/10/2018 FINDINGS: Mild stable cardiomegaly. Diaphragms are smooth. Mild emphysematous change. Block atelectas is at lung bases considered chronic. IMPRESSION: Chronic change. Mild emphysematous change. No acute process. The above report was generated using voice recognition software. It may contain grammatical, syntax or spelling errors. Electronically signed by: Nando Hernandez M.D. 01/27/2019 6:23 AM
[2019-01-27 06:30] LABS: Basophils # (auto) 0.03 K/uL (0-0.2); Basophils % (auto) 0.3 %; Eosinophils # (auto) 0.17 K/uL (0-0.5); Eosinophils % (auto) 1.8 %; Hematocrit (blood only) 36.3 % (37-47); Hemoglobin 12.5 g/dL (12.0-16.0); Immature Granulocytes # (auto) 0.03 K/uL (0.00-0.02); Immature Granulocytes % (auto) 0.3 %; Lymphocytes # (auto) 2.27 K/uL (1.2-3.4); Lymphocytes % (auto) 23.7 %; Mean Corpuscular Hgb Conc 34.4 g/dL (32-36); Mean Corpuscular Volume 94.3 fL (80-100); Mean Platelet Volume 10.7 fL (7.4-10.4); Monocytes % (auto) 15.7 %; Neutrophils # (auto) 5.58 K/uL (1.4-6.5); Neutrophils % (auto) 58.2 %; Platelet Count 166 K/uL (130-400); RDW Coefficient of Variation 14.5 % (11.5-14.5); Red Blood Count 3.85 M/uL (4.2-5.4); White Blood Count 9.58 K/uL (4.8-10.8)
[2019-01-27 06:39] LABS: Alanine Aminotransferase 19 U/L (12-78); Aspartate Aminotransferase 21 U/L (15-37); BUN Creatinine Ratio 14.9 (10-20); Blood Urea Nitrogen 31 mg/dl (7-18); Calcium 8.5 mg/dl (8.5-10.1); Carbon Dioxide 28 mmol/L (21-32); Chloride 111 mmol/L (98-107); Est GFR (Non-African American) 23.3; Glucose 87 mg/dl (70-99); Magnesium 2.2 mg/dl (1.8-2.4); Potassium 4.5 mmol/L (3.5-5.1); Sodium 142 mmol/L (136-145)
[2019-01-27 06:39] LABS: Appearance Urine Turbid (Clear); Bacteria Urine Automated Negative (Negative); Bilirubin Urine Negative (Negative); Blood Urine 1+ (Negative); Color Urine Yellow; Epithelial Cell Urine Auto >30 /lpf (0-5); Glucose Urine UA Negative (Negative); Ketones Urine Negative (Negative); Leukocyte Esterase Urine Negative (Negative); Nitrite Urine Negative (Negative); Protein Urine 2+ (Negative); RBC Urine Automated 0-4 /hpf (0-4); Specific Gravity Urine 1.025 (1.000-1.030); Urobilinogen Urine Negative (Negative)
[2019-01-27] MEDS: SODIUM CHLORIDE 0.9% 1000ML 1,000 ML IV SCH (06:40)
[2019-01-27 06:44] LABS: Albumin Globulin Ratio 1.1 (0.9-2); Alkaline Phosphatase 115 U/L (45-117); Bilirubin,Total 0.9 mg/dl (0.2-1); Globulin 3.8 gm/dl (2.5-4.0); Total Protein 7.8 gm/dl (6.4-8.2); Troponin I < 0.015 ng/ml (0-0.045)
[2019-01-27 06:47] LABS: INR 3.4 (0.9-1.1); Partial Thromboplastin Ratio 1.8; Prothrombin Time 31.8 Seconds (9.0-12.0)
[2019-01-27] MEDS ORDERED: OPTIRAY 320 125ml IV PRN (06:47)
--- NOTE | 2019-01-27 06:57 | CT Scan Report ---
CT angio head w con CLINICAL HISTORY: aphasia TECHNIQUE: CT angiography of the head was performed in a dynamic helical fashion during intravenous a dministration of 118 cc of Optiray 320. MIP imaging was performed. A dose lowering technique was util ized adhering to the principles of ALARA. CT DOSE: 1079.63 mGy.cm COMPARISON STUDY: October 10, 2018 FINDINGS: There are no lesion suspicious for aneurysm. There are no major intracranial branch occlusi ons. The dural venous sinuses appear patent. IMPRESSION: Normal study. Electronically signed by: Bob Gonzalez M.D. 01/27/2019 6:56 AM
--- NOTE | 2019-01-27 06:57 | CT Scan Report ---
CT head/brain wo con CT DOSE: HISTORY: Mental status change Stroke evaluation TECHNIQUE: Multiaxial CT images of the head were performed without the use of intravenous contrast. A dose lowering technique was utilized adhering to the principles of ALARA. Comparison: 10/10/2018 Findings: The paranasal sinuses and mastoid air cells are clear. The calvarium and skull base are int act. The ventricles and sulci are within normal limits. There is no mass, hematoma, midline shift, or acute infarct. Small old left basal ganglia infarct. Impression: No acute intracranial abnormality. The above report was generated using voice recognition software. It may contain grammatical, syntax or spelling errors. Electronically signed by: Nando Hernandez M.D. 01/27/2019 6:56 AM
--- NOTE | 2019-01-27 07:00 | Emergency Department Note ---
Entered by Nimisha Henley acting as a scribe for Troy Hanson DO History of Present Illness General Chief complaint: Confusion Stated complaint: UTI,STROKE? CONFUSION,CAN'T SPEAK Time Seen by Provider: 01/27/19 06:04 Source: patient History of Present Illness Provider complaint: Confusion Onset (ago): hour(s) 3 Location: head (confusion ) Pain Consistency: + constant Quality: + constant Associated symptoms: + other (Positive: aphasia ); no chest pain, no headaches, no nausea/vomiting and no shortness of breath The patient is a 68-year-old female who presented to the emergency department with her significant other for an evaluation of altered mental status. The patient's last known well time was approximately 9 PM last evening. She woke her between 3 and 3:30 AM this morning to alert him that something was wrong. The patient appears to be able to follow commands but is unable to answer questions as she is developed some sort of aphasia where she is just mumbling and nonsensical phrase over and over again. According the patient's significant other she had no complaints over the last 24 hours. She denies having any headache nausea or vomiting. She denies having any chest pain or shortness of breath. The patient does have a history of a similar episode many years ago which was determined to be a urinary tract infection according to her significant other. There was concern that this was a stroke at that time apparently that was not the case. The patient does have a history of a mechanical valve and takes Coumadin. She was not made a stroke alert at this time because last known well time was 9 PM last evening although I do have a suspicion this may represent a subacute process. The patient has no recent travel. She was recently seen by her primary care physician for routine evaluation. Home Medications Home Medications Medication Instructions Recorded Confirmed Type acidophilus-pectin, citrus 1 cap PO QAM 07/31/18 01/27/19 History [Acidophilus Probiotic] citalopram 20 mg PO QAM 07/31/18 01/27/19 History levothyroxine 50 mcg PO QAM 07/31/18 01/27/19 History lisinopril 2.5 mg PO QAM 07/31/18 01/27/19 History lubiprostone 8 mcg PO BIDM 07/31/18 01/27/19 History metoprolol succinate 25 mg PO BID 07/31/18 01/27/19 History magnesium oxide 400 mg PO BID #60 cap 09/06/18 01/27/19 Rx ferrous sulfate 325 mg PO QAM 10/10/18 01/27/19 History warfarin 1.25 mg PO TUSA@1600 10/10/18 01/27/19 History warfarin 2.5 mg PO SUMOWETHFR@1600 10/10/18 01/27/19 History ascorbic acid (vitamin C) 1 g PO DAILY 01/27/19 01/27/19 History colestipol 2 g PO BID 01/27/19 01/27/19 History cranberry 500 mg PO DAILY 01/27/19 01/27/19 History dicyclomine 10 mg PO BID PRN 01/27/19 01/27/19 History potassium chloride 20 meq PO DAILY 01/27/19 01/27/19 History pregabalin [Lyrica] 75 mg PO BID 01/27/19 01/27/19 History rosuvastatin 20 mg PO DAILY 01/27/19 01/27/19 History Allergies Allergy/AdvReac Type Severity Reaction Status Date / Time Bactrim Allergy Unknown . Verified 10/16/16 13:02 doxycycline Allergy Unknown . Verified 10/10/18 16:43 sulfamethoxazole Allergy Unknown . Verified 10/10/18 16:43 trimethoprim Allergy Unknown . Verified 10/10/18 16:43 Past Med/Surg History Medical History Dementia (Chronic) Chronic constipation (Chronic) RLS (restless legs syndrome) (Chronic) Chronic pain (Chronic) CKD (chronic kidney disease), stage III (Chronic) Hypertension (Chronic) CVA (cerebral vascular accident) (Chronic) BIRDIE (obstructive sleep apnea) (Chronic) Dyslipidemia (Chronic) Hypothyroidism (Chronic) Surgical History S/P total abdominal hysterectomy (Chronic) H/O neck surgery (Chronic) History of cholecystectomy (Chronic) H/O oophorectomy (Chronic) S/P repair of paraesophageal hernia (Chronic) History of total right hip replacement (Chronic) S/P lumbar fusion (Chronic) H/O hemorrhoidectomy (Chronic) Hx of aortic valve replacement, mechanical (Chronic) H/O mitral valve replacement with mechanical valve (Chronic) Family History Father Heart disease Mother Stroke Social History Preferred Language: Sinhala Communication Ability: aphasia Rose Grower Required: No Beliefs That Will Affect Care: None Current Living Situation: Spouse Other Information That Helps Us Care for You: No Feels Safe at Home: Yes Safety Concerns: Feels Safe At This Time Smoking Status: Never smoker Do You Dip or Chew Tobacco: No ; Second Hand Exposure: No ; Tobacco Cessation Education Requested by Patient: No Hx Alcohol Use: No Hx Substance Use: No Review of Systems See HPI for pertinent positives & negatives. and A total of 10 systems reviewed and were otherwise negative Additional history was obtained from the patient's significant other. Physical Exam Vital Signs Vital Signs - 24 hr 01/27/19 05:53 01/27/19 06:09 01/27/19 06:33 Temperature 36.9 C Temperature Source Oral Sepsis Recent Fever Within 48 Hours No Sepsis New/Unexplained Change in Mental Status No Sepsis Action Taken by Nursing No Action Required Pulse Rate 70 Pulse Rate [Bilateral Apical] 66 65 Pulse Rhythm [Bilateral Apical] Respiratory Rate 24 20 20 Respiratory Effort / Characteristics Non-Labored Respiratory Depth Normal Respiratory Pattern Blood Pressure 157/74 H Blood Pressure [Left Arm] 174/69 H 154/66 H Blood Pressure Mean 101 Blood Pressure Mean [Left Arm] 104 95 Blood Pressure Position [Left Arm] Pulse Oximetry 96 97 97 Oxygen Delivery Method Room Air Room Air 01/27/19 06:55 01/27/19 07:52 01/27/19 08:51 Temperature Temperature Source Sepsis Recent Fever Within 48 Hours Sepsis New/Unexplained Change in Mental Status Sepsis Action Taken by Nursing Pulse Rate Pulse Rate [Bilateral Apical] 60 59 L 57 L Pulse Rhythm [Bilateral Apical] Regular Regular Regular Respiratory Rate 18 17 15 Respiratory Effort / Characteristics Non-Labored Non-Labored Spontaneous Non-Labored Respiratory Depth Normal Normal Normal Respiratory Pattern Regular Regular Regular Blood Pressure Blood Pressure [Left Arm] 145/57 H 133/53 L 119/50 L Blood Pressure Mean Blood Pressure Mean [Left Arm] 86 79 73 Blood Pressure Position [Left Arm] Sitting Lying Sitting Pulse Oximetry 97 97 97 Oxygen Delivery Method Room Air Room Air Room Air 01/27/19 09:50 Temperature Temperature Source Sepsis Recent Fever Within 48 Hours Sepsis New/Unexplained Change in Mental Status Sepsis Action Taken by Nursing Pulse Rate Pulse Rate [Bilateral Apical] 56 L Pulse Rhythm [Bilateral Apical] Regular Respiratory Rate 14 Respiratory Effort / Characteristics Non-Labored Respiratory Depth Normal Respiratory Pattern Regular Blood Pressure Blood Pressure [Left Arm] 136/57 L Blood Pressure Mean Blood Pressure Mean [Left Arm] 83 Blood Pressure Position [Left Arm] Lying Pulse Oximetry 97 Oxygen Delivery Method Room Air GENERAL: Patient is awake alert but very anxious appearing. She continues to mumble nonsensical phrase over and over again. She appears to have aphasia and is unable to answer questions a properly. EYES: The conjunctivae are clear. The pupils are round and reactive. EARS, NOSE, MOUTH AND THROAT: The nose is without any evidence of any deformity. Mucous membranes are moist tongue is midline NECK: The neck is nontender and supple. RESPIRATORY: Normal respiratory effort is noted there is no evidence of wheezing rhonchi or rales CARDIOVASCULAR: Regular rate and rhythm was noted to auscultation. There was a metallic click noted to auscultation. GASTROINTESTINAL: The abdomen is soft. Bowel sounds are present in all quadrants. Abdomen is nontender MUSCULOSKELETAL/EXTREMITIES: There is no evidence of gross deformity full range of motion is noted in the hips and shoulders SKIN: There is no obvious evidence of any rash. There are no petechiae, pallor or cyanosis noted. NEUROLOGIC: Patient is awake and alert and follows commands. She is unable to speak clear words so assessing orientation at this time is difficult. Patellar tendon reflexes are 2+ bilaterally. There is no facial droop. Patient's speech is consisting only of a nonsensical phrase repeated over and over again. Course 0606: The patient was evaluated in room A9B. A complete history and physical exam was performed. 0735: Upon reevaluation, the patient is resting comfortably. I discussed laboratory and radiographic results with her and the . They verbalized agreement of the treatment plan. The patient will be evaluated for further management and care. 0757: I [facility] the [facility]'s [facility] He will evaluate the patient for further management. Consultations Consultation #1: I discussed the ivette's case with Samantha Adame. He will evaluate the patient for further management. Time: 07:57 Administered Medications Sodium Chloride (Nss 1000ml) 1,000 mls @ 50 mls/hr IV .Q20H OLGA Stop: 02/26/19 06:14 Last Infusion: 01/27/19 08:50 Dose: 50 mls/hr Documented by: [id number] Infusion: 01/27/19 07:48 Dose: 0 mls/hr Documented by: [id number] Admin: 01/27/19 06:40 Dose: 50 mls/hr Documented by: [id number] Discontinued Medications Ceftriaxone Sodium (Rocephin) 1,000 mg in 50 mls @ 100 mls/hr IV NOW STA Stop: 01/27/19 07:35 Last Infusion: 01/27/19 08:18 Dose: 0 mls/hr Documented by: [id number] Admin: 01/27/19 07:48 Dose: 100 mls/hr Documented by: [id number] Sodium Chloride (Nss 1000ml) 1,000 mls @ 999 mls/hr IV .Q1H1M ONE Stop: 01/27/19 08:06 Last Infusion: 01/27/19 08:49 Dose: 0 mls/hr Documented by: [id number] Admin: 01/27/19 07:48 Dose: 999 mls/hr Documented by: [id number] Ioversol (Optiray 320 125ml) 118 ml IV ONCE PRN PRN Reason: Interaction Checking Stop: 01/31/19 06:46 Last Admin: 01/27/19 06:47 Dose: 118 ml Documented by: [id number] Medical Decision Making Differential Diagnosis Differential Diagnosis: Etiologies such as metabolic, infection, hypo/hyperglycemia, electrolyte abnormalities, cardiac sources, intracerebral event, toxicologic, neurologic, as well as others were entertained. Medical Records Attestation: I reviewed the patient's medical records. Home Medications Current Medication List: was personally reviewed by me Laboratory Data Attestation: I reviewed the patient's lab results. Result diagrams: 01/27/19 06:05 01/27/19 06:05 Lab Results 01/27/19 01/27/19 01/27/19 Range/Units 06:05 06:05 06:05 WBC 9.58 (4.8-10.8) K/uL RBC 3.85 L (4.2-5.4) M/uL Hgb 12.5 (12.0-16.0) g/dL Hct 36.3 L (37-47) % MCV 94.3 (80-100) fL MCH 32.5 (25-34) pg MCHC 34.4 (32-36) g/dL RDW Std Deviation 50.0 H (36.4-46.3) fL RDW Coeff of Gisele 14.5 (11.5-14.5) % Plt Count 166 (130-400) K/uL MPV 10.7 H (7.4-10.4) fL Immature Gran % (Auto) 0.3 % Neut % (Auto) 58.2 % Lymph % (Auto) 23.7 % Kaufman % (Auto) 15.7 % Eos % (Auto) 1.8 % Baso % (Auto) 0.3 % Immature Gran # (Auto) 0.03 H (0.00-0.02) K/uL Neut # (Auto) 5.58 (1.4-6.5) K/uL Lymph # (Auto) 2.27 (1.2-3.4) K/uL Kaufman # (Auto) 1.50 H (0.11-0.59) K/uL Eos # (Auto) 0.17 (0-0.5) K/uL Baso # (Auto) 0.03 (0-0.2) K/uL PT 31.8 H (9.0-12.0) Seconds INR 3.4 H (0.9-1.1) APTT 47.6 H* (21.0-31.0) Seconds PTT Ratio 1.8 Sodium 142 (136-145) mmol/L Potassium 4.5 (3.5-5.1) mmol/L Chloride 111 H (98-107) mmol/L Carbon Dioxide 28 (21-32) mmol/L Anion Gap 3.0 (3-11) BUN 31 H (7-18) mg/dl Creatinine 2.12 H (0.6-1.2) mg/dl Est Cr Clr Drug Dosing 21.0 ml/min Est GFR ( Amer) 27.0 Est GFR (Non-Af Amer) 23.3 BUN/Creatinine Ratio 14.9 (10-20) Glucose 87 (70-99) mg/dl POC Glucose (70-99) Estimat Average Glucose mg/dl Hemoglobin A1c (4.5-5.6) % Calcium 8.5 (8.5-10.1) mg/dl Magnesium 2.2 (1.8-2.4) mg/dl Total Bilirubin 0.9 (0.2-1) mg/dl AST 21 (15-37) U/L ALT 19 (12-78) U/L Alkaline Phosphatase 115 (45-117) U/L Troponin I < 0.015 (0-0.045) ng/ml Total Protein 7.8 (6.4-8.2) gm/dl Albumin 4.0 (3.4-5.0) gm/dl Globulin 3.8 (2.5-4.0) gm/dl Albumin/Globulin Ratio 1.1 (0.9-2) Urine Color Urine Appearance (Clear) Urine pH (4.5-7.5) Ur Specific Zaleski (1.000-1.030) Urine Protein (Negative) Urine Glucose (UA) (Negative) Urine Ketones (Negative) Urine Blood (Negative) Urine Nitrite (Negative) Urine Bilirubin (Negative) Urine Urobilinogen (Negative) Ur Leukocyte Esterase (Negative) Urine WBC (Auto) (0-5) /hpf Urine RBC (Auto) (0-4) /hpf U Hyaline Cast (Auto) (0-5) /lpf U Epithel Cells (Auto) (0-5) /lpf Urine Bacteria (Auto) (Negative) Ur Renal Epithelial Cell Granular Casts (0) /lpf 01/27/19 01/27/19 01/27/19 Range/Units 06:05 06:20 06:30 WBC (4.8-10.8) K/uL RBC (4.2-5.4) M/uL Hgb (12.0-16.0) g/dL Hct (37-47) % MCV (80-100) fL MCH (25-34) pg MCHC (32-36) g/dL RDW Std Deviation (36.4-46.3) fL RDW Coeff of Gisele (11.5-14.5) % Plt Count (130-400) K/uL MPV (7.4-10.4) fL Immature Gran % (Auto) % Neut % (Auto) % Lymph % (Auto) % Kaufman % (Auto) % Eos % (Auto) % Baso % (Auto) % Immature Gran # (Auto) (0.00-0.02) K/uL Neut # (Auto) (1.4-6.5) K/uL Lymph # (Auto) (1.2-3.4) K/uL Kaufman # (Auto) (0.11-0.59) K/uL Eos # (Auto) (0-0.5) K/uL Baso # (Auto) (0-0.2) K/uL PT (9.0-12.0) Seconds INR (0.9-1.1) APTT (21.0-31.0) Seconds PTT Ratio Sodium (136-145) mmol/L Potassium (3.5-5.1) mmol/L Chloride (98-107) mmol/L Carbon Dioxide (21-32) mmol/L Anion Gap (3-11) BUN (7-18) mg/dl Creatinine (0.6-1.2) mg/dl Est Cr Clr Drug Dosing ml/min Est GFR ( Amer) Est GFR (Non-Af Amer) BUN/Creatinine Ratio (10-20) Glucose (70-99) mg/dl POC Glucose 87 (70-99) Estimat Average Glucose 105 mg/dl Hemoglobin A1c 5.3 (4.5-5.6) % Calcium (8.5-10.1) mg/dl Magnesium (1.8-2.4) mg/dl Total Bilirubin (0.2-1) mg/dl AST (15-37) U/L ALT (12-78) U/L Alkaline Phosphatase (45-117) U/L Troponin I (0-0.045) ng/ml Total Protein (6.4-8.2) gm/dl Albumin (3.4-5.0) gm/dl Globulin (2.5-4.0) gm/dl Albumin/Globulin Ratio (0.9-2) Urine Color Yellow Urine Appearance Turbid A (Clear) Urine pH 5.0 (4.5-7.5) Ur Specific Zaleski 1.025 (1.000-1.030) Urine Protein 2+ H (Negative) Urine Glucose (UA) Negative (Negative) Urine Ketones Negative (Negative) Urine Blood 1+ H (Negative) Urine Nitrite Negative (Negative) Urine Bilirubin Negative (Negative) Urine Urobilinogen Negative (Negative) Ur Leukocyte Esterase Negative (Negative) Urine WBC (Auto) 10-30 H (0-5) /hpf Urine RBC (Auto) 0-4 (0-4) /hpf U Hyaline Cast (Auto) >30 H (0-5) /lpf U Epithel Cells (Auto) >30 H (0-5) /lpf Urine Bacteria (Auto) Negative (Negative) Ur Renal Epithelial Cell Not Reportable Granular Casts 10-20 H (0) /lpf Imaging Data Radiologist's Impression: Radiology results as stated below per my review and the radiologist's interpretation: XR chest 1V portable CLINICAL HISTORY: aphasia dysphagia. Pain. COMPARISON STUDY: 10/10/2018 FINDINGS: Mild stable cardiomegaly. Diaphragms are smooth. Mild emphysematous change. Block atelectasis at lung bases considered chronic. IMPRESSION: Chronic change. Mild emphysematous change. No acute process. The above report was generated using voice recognition software. It may contain grammatical, syntax or spelling errors. Electronically signed by: Nando Hernandez M.D. 01/27/2019 6:[address] angio head w con CLINICAL HISTORY: aphasia TECHNIQUE: CT angiography of the head was performed in a dynamic helical fashion during intravenous administration of 118 cc of Optiray 320. MIP imaging was performed. A dose lowering technique was utilized adhering to the principles of ALARA. CT DOSE: 1079.63 mGy.cm COMPARISON STUDY: October 10, 2018 FINDINGS: There are no lesion suspicious for aneurysm. There are no major intracranial branch occlusions. The dural venous sinuses appear patent. IMPRESSION: Normal study. Electronically signed by: Bob Gonzalez M.D. 01/27/2019 6:[address] head/brain wo con CT DOSE: HISTORY: Mental status change Stroke evaluation TECHNIQUE: Multiaxial CT images of the head were performed without the use of intravenous contrast. A dose lowering technique was utilized adhering to the principles of ALARA. Comparison: 10/10/2018 Findings: The paranasal sinuses and mastoid air cells are clear. The calvarium and skull base are intact. The ventricles and sulci are within normal limits. There is no mass, hematoma, midline shift, or acute infarct. Small old left basal ganglia infarct. Impression: No acute intracranial abnormality. The above report was generated using voice recognition software. It may contain grammatical, syntax or spelling errors. Electronically signed by: Nando Hernandez M.D. 01/27/2019 6:[address] angio neck with con CLINICAL HISTORY: aphasia COMPARISON STUDY: 10/10/2018 TECHNIQUE: CT angiography was performed from the aortic arch to the skull base. MIP imaging was performed. The patient was scanned in a dynamic helical fashion during intravenous administration of 118 cc of Optiray 320. A dose lowering technique was utilized adhering to the principles of ALARA. CT DOSE: Technique: CT angiogram of the carotid and vertebral arteries was obtained using intravenous contrast and 3-D reconstruction. NASCET criteria was utilized. Findings: The right carotid revealed no evidence of aneurysm and no evidence of dissection. There is no evidence of hemodynamic significant stenosis. There is mixed plaque at the level of the proximal left internal carotid artery with a 33% diameter stenosis. There is no evidence of hemodynamically significant vertebral stenosis. There is no evidence of vertebral dissection. IMPRESSION: No evidence of hemodynamically significant carotid or vertebral artery stenosis. No evidence of dissection. Electronically signed by: Bob Gonzalez M.D. 01/27/2019 6:59 AM ECG Data Attestation: I personally reviewed and interpreted this ECG as follows: Indication: altered mental status (confusion ) Rate (beats per minute): 65 Rhythm: normal sinus Findings: + ST depression (Diffused) Comparison ECG Date: from (10/10/18) Change: no significant change Blood Pressure Blood Pressure Findings: Low blood pressure Blood Pressure Disposition: further management by hospitalist [facility] Narrative The patient is a 68-year-old male who presented to the emergency department for an evaluation of altered mental status. The patient has some degree of aphasia as well. She has had similar symptoms in the past and does have signs of stroke on CAT scan. She is a history of a valve replacement and currently takes blood thinners. The patient was not made a stroke alert initially because her last known well time was 9 PM last evening although she did awaken her at approximately 3 to 3:30 AM this morning because of the symptoms. The patient has angiography which does not appear to show any acute occlusion. Initial CAT scan shows no disease. She was treated with IV fluids and IV antibiotics for presumed urinary tract infection. She was reevaluated multiple times. I discussed the patient's laboratory and radiographic studies with her and her significant other. I also discussed her case with the on-call [facility] hospitalist group. They have agreed to evaluate the patient in the emergency department for further management disposition. Impression & Plan Aphasia, Acute UTI, Acute kidney injury Discharge Plan Visit Data *Final* Discharge Date/Time: 01/27/19 10:30 Chief Complaint: Confusion Stated Complaint: UTI,STROKE? CONFUSION,CAN'T SPEAK ED Provider: Troy Hanson Discharge Problem: Aphasia, Acute UTI, Acute kidney injury Patient Disposition: Admitted As Inpatient Discharge Instructions Interventions: ED Discharge Assessment Last Done: 01/27/19 10:30 The scribe's documentation has been prepared under my direction and personally reviewed by me in its entirety. I confirm that the note above accurately reflects all work, treatment, procedures, and medical decision making performed by me.
--- NOTE | 2019-01-27 07:01 | CT Scan Report ---
CT angio neck with con CLINICAL HISTORY: aphasia COMPARISON STUDY: 10/10/2018 TECHNIQUE: CT angiography was performed from the aortic arch to the skull base. MIP imaging was perfo rmed. The patient was scanned in a dynamic helical fashion during intravenous administration of 118 c c of Optiray 320. A dose lowering technique was utilized adhering to the principles of ALARA. CT DOSE: Technique: CT angiogram of the carotid and vertebral arteries was obtained using intravenous contrast and 3-D reconstruction. NASCET criteria was utilized. Findings: The right carotid revealed no evidence of aneurysm and no evidence of dissection. There is no evidenc e of hemodynamic significant stenosis. There is mixed plaque at the level of the proximal left internal carotid artery with a 33% diameter s tenosis. There is no evidence of hemodynamically significant vertebral stenosis. There is no evidence of verte bral dissection. IMPRESSION: No evidence of hemodynamically significant carotid or vertebral artery stenosis. No evidence of disse ction. Electronically signed by: Bob Gonzalez M.D. 01/27/2019 6:59 AM
[2019-01-27 07:02] LABS: Cast Urine Automated >30 /lpf (0-5)
[2019-01-27 07:05] LABS: Partial Thromboplastin Time 47.6 Seconds (21.0-31.0)
[2019-01-27] MEDS ORDERED: SODIUM CHLORIDE 0.9% 1000ML 1,000 ML IV ONE (07:06)
[2019-01-27] MEDS ORDERED: cefTRIAXone SODIUM 1,000 MG/50 ML BAG IV STA (07:06)
--- NOTE | 2019-01-27 09:19 | History & Physical Report ---
Date of Service January 27, 2019 Assessment & Plan (1) Aphasia: This is a 68yo F with a PMH of HTN, h/o CVA, HLD, CKD III, BIRDIE intolerant to CPAP, pulmonary HTN, h/o aortic valve and mitral valve replacements on coumadin and other medical problems listed below who presents with speech abnormality since the middle of the night. -Has been admitted previously in July and August with aphasia/persistent babbling, with negative stroke work up both times -In setting of frequent UTIs, underlying arrhythmia, dementia and polypharmacy -Today's CT head, CTA head/neck without acute abnormality -UA abnormal, started on empiric Rocephin, follow culture -Expect improvement of cognitive status with abx and IV fluids -Dysphasia screen, neuro checks, tele monitoring for possible arrhythmia -If aphasia persists, consider further imaging per neuro -Needs help managing medications at home in setting of dementia (2) Acute metabolic encephalopathy: (3) Acute UTI: Abnormal UA, continue empiric Rocephin, follow urine culture -Grew enterobacter cloacae in September 2018 -Also with h/o fecal incontinence due to chronic constipation and laxative use, per (4) Paroxysmal SVT (supraventricular tachycardia): Concern for cerebral hypoperfusion in setting of arrhythmia picked up on tele during previous admission -Zio patch monitoring revealed frequent short episodes of asymptomatic supraventricular tachycardia, 131 total episodes noted -Was evaluated by Dr. Morin, who increased Toprol dose to 25mg BID -Monitor on telemetry during admission (5) Acute kidney injury superimposed on chronic kidney disease: Cr elevated at 2.12 (baseline Cr 1.4) -In setting of likely UTI -Gentle fluid resuscitation -Daily BMP (6) Hx of aortic valve replacement, mechanical: (7) H/O mitral valve replacement with mechanical valve: On coumadin with INR of 3.4 today -Hold this evening's dose of coumadin -Check daily INR (8) Hypertension: Normotensive -Continue Toprol. Hold lisinopril in setting of JAMES (9) BIRDIE (obstructive sleep apnea): Intolerant to CPAP -Monitor with pulseox HS to determine if patient is becoming hypoxic (10) Dementia: Is forgetful at baseline but still manages home medications - out of house some during day - case mgmt to discuss possible home health services (11) Hypothyroidism: Continue levothyroxine (12) Dyslipidemia: Continue statin DVT Ppx: Home coumadin Code status: FULL PCP: Shelia Dispo: Admitted to [facility]. Discharge planning ordered. Patient seen in collaboration with Dr. Wilder. Please see addendum. History of Present Illness Chief Complaint: speech abnormality Primary Care Provider: Gomez Bass MD This is a 68yo F with a PMH of HTN, h/o CVA, HLD, CKD III, BIRDIE intolerant to CPAP, pulmonary HTN, h/o aortic valve and mitral valve replacements on coumadin and other medical problems listed below who presents with speech abnormality since the middle of the night. Patient woke up her during the night with "babbling" and increased confusion. Has been admitted previously in July and August with aphasia/persistent babbling. In July, patient was life flighted to [facility] for concerns of acute CVA. Stroke and seizure workup at [place] was negative and patient was found to have an acute UTI and altered mental status was attributed to metabolic encephalopathy. During August admission at [facility], CT head, CTA head/neck were negative but patient did not appear to have UTI at this time. Psych was consulted to evaluate for polypharmacy contributing to AMS and the service recommended discontinuing memantine and pramipexole as well as decreasing gabapentin dose as well as avoiding deliriogenic medications (benzodiazepines, anticholinergics, anti-histaminergics, and other centrally acting medications) that may be contributing to sudden onset aphasia. Considered possibility of arrhythmia with transient cerebral hypoperfusion and recommended Zio patch to be ordered in outpatient setting for further evaluation of arrhythmia. Today, history obtained today from at bedside, who denies patient mentioning any preceding headache, visual changes, chest pain or SOB. Has been eating normally, denying nausea, vomiting or abdominal pain. No urinary symptoms, diarrhea or constipation. At baseline, patient has dementia but is able to manage her home medications, ambulate independently and care for herself alone in the home. Does have BIRDIE but is intolerant to CPAP. In the ED, head CT, head/neck CTA are negative for acute findings. No leukocytosis or electrolyte abnormalities. Creatinine elevated at 2.12 (baseline Cr ~ 1.4). UA abnormal with culture pending. Patient started on Rocephin and given 1 L NSS. Allergies Allergy/AdvReac Type Severity Reaction Status Date / Time Bactrim Allergy Unknown . Verified 10/16/16 13:02 doxycycline Allergy Unknown . Verified 10/10/18 16:43 sulfamethoxazole Allergy Unknown . Verified 10/10/18 16:43 trimethoprim Allergy Unknown . Verified 10/10/18 16:43 Home Medications Home Medications Medication Instructions Recorded Confirmed Type acidophilus-pectin, citrus 1 cap PO QAM 07/31/18 01/27/19 History [Acidophilus Probiotic] citalopram 20 mg PO QAM 07/31/18 01/27/19 History levothyroxine 50 mcg PO QAM 07/31/18 01/27/19 History lisinopril 2.5 mg PO QAM 07/31/18 01/27/19 History lubiprostone 8 mcg PO BIDM 07/31/18 01/27/19 History metoprolol succinate 25 mg PO BID 07/31/18 01/27/19 History magnesium oxide 400 mg PO BID #60 cap 09/06/18 01/27/19 Rx ferrous sulfate 325 mg PO QAM 10/10/18 01/27/19 History warfarin 1.25 mg PO TUSA@1600 10/10/18 01/27/19 History warfarin 2.5 mg PO SUMOWETHFR@1600 10/10/18 01/27/19 History ascorbic acid (vitamin C) 1 g PO DAILY 01/27/19 01/27/19 History colestipol 2 g PO BID 01/27/19 01/27/19 History cranberry 500 mg PO DAILY 01/27/19 01/27/19 History dicyclomine 10 mg PO BID PRN 01/27/19 01/27/19 History potassium chloride 20 meq PO DAILY 01/27/19 01/27/19 History pregabalin [Lyrica] 75 mg PO BID 01/27/19 01/27/19 History rosuvastatin 20 mg PO DAILY 01/27/19 01/27/19 History Past Med/Surg History Medical History Dementia (Chronic) Chronic constipation (Chronic) RLS (restless legs syndrome) (Chronic) Chronic pain (Chronic) CKD (chronic kidney disease), stage III (Chronic) Hypertension (Chronic) CVA (cerebral vascular accident) (Chronic) BIRDIE (obstructive sleep apnea) (Chronic) Dyslipidemia (Chronic) Hypothyroidism (Chronic) Surgical History S/P total abdominal hysterectomy (Chronic) H/O neck surgery (Chronic) History of cholecystectomy (Chronic) H/O oophorectomy (Chronic) S/P repair of paraesophageal hernia (Chronic) History of total right hip replacement (Chronic) S/P lumbar fusion (Chronic) H/O hemorrhoidectomy (Chronic) Hx of aortic valve replacement, mechanical (Chronic) H/O mitral valve replacement with mechanical valve (Chronic) Family History Father Heart disease Mother Stroke Social History Preferred Language: Cymro Communication Ability: Impaired Edger Machine Helper Required: No Beliefs That Will Affect Care: None Current Living Situation: Spouse Other Information That Helps Us Care for You: No Feels Safe at Home: Yes Safety Concerns: Feels Safe At This Time Smoking Status: Never smoker Do You Dip or Chew Tobacco: No ; Second Hand Exposure: No ; Tobacco Cessation Education Requested by Patient: No Hx Alcohol Use: No Hx Substance Use: No Review of Systems Review of Systems: Unobtainable due to cognitive status Physical Exam Physical Exam: General Appearance: WD/WN, no apparent distress, resting comfortably Head: normocephalic, atraumatic Eyes: normal inspection, PERRL, EOMI ENT: hearing grossly normal, pharynx normal (moist mucous membranes) Neck: supple, no JVD, no adenopathy Respiratory/Chest: lungs clear to auscultation. No wheezes, rales or rhonci. No respiratory distress or accessory muscle use Cardiovascular: bradycardic rate, regular rhythm, metallic click noted on auscultation, no murmur, normal peripheral pulses Abdomen/GI: normal bowel sounds, soft, non-tender to palpation Extremities/Musculoskelatal: normal inspection, no calf tenderness, normal capillary refill, no pedal edema Neurologic/Psych: alert, unable to assess orientation due to aphasia/persistent babbling, normal mood/affect, able to follow commands, CN II-XII grossly intact, active ROM, 5/5 GUNJAN in all 4 quadrants, heel to gibson movement intact Skin: normal color, warm/dry Results & Data Vital Signs (Past 12 Hours) Vital Signs Temp Pulse Pulse Resp BP BP Pulse Ox 01/27/19 08:51 57 L 15 119/50 L 97 01/27/19 07:52 59 L 17 133/53 L 97 01/27/19 06:55 60 18 145/57 H 97 01/27/19 06:33 65 20 154/66 H 97 01/27/19 06:09 66 20 174/69 H 97 01/27/19 05:53 36.9 C 70 24 157/74 H 96 Laboratory Results Short CBC 01/27/19 Range/Units 06:05 WBC 9.58 (4.8-10.8) K/uL Hgb 12.5 (12.0-16.0) g/dL Hct 36.3 L (37-47) % Plt Count 166 (130-400) K/uL BMP 01/27/19 06:05 Sodium 142 Potassium 4.5 Chloride 111 H Carbon Dioxide 28 BUN 31 H Creatinine 2.12 H Glucose 87 Calcium 8.5 Cardiac Enzymes 01/27/19 Range/Units 06:05 Troponin I < 0.015 (0-0.045) ng/ml Liver Function 01/27/19 Range/Units 06:05 Total Bilirubin 0.9 (0.2-1) mg/dl AST 21 (15-37) U/L ALT 19 (12-78) U/L Alkaline Phosphatase 115 (45-117) U/L Albumin 4.0 (3.4-5.0) gm/dl Urine 01/27/19 Range/Units 06:30 Urine Color Yellow Urine Appearance Turbid A (Clear) Urine pH 5.0 (4.5-7.5) Ur Specific [place] 1.025 (1.000-1.030) Urine Protein 2+ H (Negative) Urine Glucose (UA) Negative (Negative) Diagnostic Findings CT head: Impression: No acute intracranial abnormality. CTA head: IMPRESSION: Normal study. CTA neck: IMPRESSION: No evidence of hemodynamically significant carotid or vertebral artery stenosis. No evidence of dissection. CXR: IMPRESSION: Chronic change. Mild emphysematous change. No acute process. ECG Rhythm: normal sinus Findings: + nonspecific-ST abn and + T-wave inversion Change: the following changes noted Additional Comments: T wave inversion in anterior leads Supervising Physician Co-Signing Physician Notes Pt was seen and examined. Agreed with Poonam VEGA exam, assessment and plan. 68yo F with a PMH of HTN, h/o CVA, HLD, CKD III, BIRDIE intolerant to CPAP, pulmonary HTN, h/o aortic valve and mitral valve replacements on coumadin present to the ER with abnormal speech. Pt had 2 previous admissions for similar symptoms few months ago. CT head showed no acute abnormal finding. CTA head and Neck showed no cute finding. UA showed no leukocytes, nitrite and bacteria. Family said that pt had UTI in the past when she had stroke like symptoms. Will check urine cx. Received IV rocephin. Will d/c abx if urine cx negative. Consult urology. Will do neuro check. Continue PT/OT. Continue statin and coumadin. Will continue monitor closely. MD Meño (1) Hypertension Hypertension type: unspecified Qualified Code(s): I10 - Essential (primary) hypertension
[2019-01-27] MEDS ORDERED: PHARMACIST DISCHARGE MED REC CONSULT PRN (11:00)
[2019-01-27] MEDS ORDERED: DICYCLOMINE HCL 10 MG CAP PO PRN (11:43)
[2019-01-27 11:50] LABS: Estimated Average Glucose 105 mg/dl; Hemoglobin A1C 5.3 % (4.5-5.6)
--- NOTE | 2019-01-27 15:02 | Neurology Consultation ---
Date of Consultation January 27, 2019 Assessment & Plan (1) Aphasia: 1. CTA head and neck - no acute findngs 2. unable to have MRI due to mechanical valves 3. coumadin continue at therapeutic INR 2.5-3.5 4. would not start aspirin 5. babbling speech- no other stroke features- psychiatry saw her in past 6. optimize HTN, HLD, DM LDL <70 7. evaluate PT/OT speech for discharge needs Supervising Physician Co-Signing Physician Notes Patient was seen and examined. No family at bedside. Patient very pleasant. Speech is clear. SHe is able to repeat. Naming is good. Comprehension is intact. Tongue midline. EOMI. VF full. No drift. Sensation is intact. CT head and CTA negative for acute intracranial process. I do not see any evidence of aphasia. No evidence of UTI on UA . Patient is already on Coumadin with therapeutic INR. Patient may benefit from speech therapy as outpatient. History of Present Illness Reason for Consultation: speech abnormalities Requesting Physician: Arun Wilder MD Attending Physician: Arun Wilder MD History of Present Illness Magda is a 68 year old female with PMH - HTN, h/o CVA, HLD, CKD III, BIRDIE intolerant to CPAP, pulmonary HTN, h/o aortic valve and mitral valve replacements on coumadin. she presented with speech abnormality since the middle of the night. She woke her during the night with "babbling" and increased confusion. Has been admitted previously in July and August with aphasia/persistent babbling. In July, patient was life flighted to [facility] for concerns of acute CVA. Stroke and seizure workup at [place] was negative and patient was found to have an acute UTI and altered mental status was attributed to metabolic encephalopathy. During August admission at [facility], CT head, CTA head/neck were negative but patient did not appear to have UTI at this time. Psych was consulted to evaluate for polypharmacy contributing to AMS and the service recommended discontinuing memantine and pramipexole as we ll as decreasing gabapentin dose as well as avoiding delirium causing medications (benzodiazepines, anticholinergics, anti-histaminergics, and other centrally acting medications) that may be contributing to sudden onset aphasia. Considered possibility of arrhythmia with transient cerebral hypoperfusion and recommended Zio patch to be ordered in outpatient setting for further evaluation of arrhythmia. Has been eating normally, denying nausea, vomiting or abdominal pain. No urinary symptoms, diarrhea or constipation. At baseline, patient has dementia but is able to manage her home medications, ambulate independently and cares for herself alone in the home. She does have c pap dependent sleep apnea but does not tolerate the machine. She is currently sitting up in bed. when asked a question she babbles. She is able to use a pen and paper to answer questions and has no receptive aphasia. denies CP, SOB, abdominal pain, one sided weakness, numbness tingling, N, V, swallowing issues, vision changes, bowel or bladder symptoms. Allergies Allergy/AdvReac Type Severity Reaction Status Date / Time Bactrim Allergy Unknown . Verified 10/16/16 13:02 doxycycline Allergy Unknown . Verified 10/10/18 16:43 sulfamethoxazole Allergy Unknown . Verified 10/10/18 16:43 trimethoprim Allergy Unknown . Verified 10/10/18 16:43 Home Medications Home Medications Medication Instructions Recorded Confirmed Type acidophilus-pectin, citrus 1 cap PO QAM 07/31/18 01/27/19 History [Acidophilus Probiotic] citalopram 20 mg PO QAM 07/31/18 01/27/19 History levothyroxine 50 mcg PO QAM 07/31/18 01/27/19 History lisinopril 2.5 mg PO QAM 07/31/18 01/27/19 History lubiprostone 8 mcg PO BIDM 07/31/18 01/27/19 History metoprolol succinate 25 mg PO BID 07/31/18 01/27/19 History magnesium oxide 400 mg PO BID #60 cap 09/06/18 01/27/19 Rx ferrous sulfate 325 mg PO QAM 10/10/18 01/27/19 History warfarin 1.25 mg PO TUSA@1600 10/10/18 01/27/19 History warfarin 2.5 mg PO SUMOWETHFR@1600 10/10/18 01/27/19 History ascorbic acid (vitamin C) 1 g PO DAILY 01/27/19 01/27/19 History colestipol 2 g PO BID 01/27/19 01/27/19 History cranberry 500 mg PO DAILY 01/27/19 01/27/19 History dicyclomine 10 mg PO BID PRN 01/27/19 01/27/19 History potassium chloride 20 meq PO DAILY 01/27/19 01/27/19 History pregabalin [Lyrica] 75 mg PO BID 01/27/19 01/27/19 History rosuvastatin 20 mg PO DAILY 01/27/19 01/27/19 History Patient History Medical History Dementia (Chronic) Chronic constipation (Chronic) RLS (restless legs syndrome) (Chronic) Chronic pain (Chronic) CKD (chronic kidney disease), stage III (Chronic) Hypertension (Chronic) CVA (cerebral vascular accident) (Chronic) BIRDIE (obstructive sleep apnea) (Chronic) Dyslipidemia (Chronic) Hypothyroidism (Chronic) Surgical History S/P total abdominal hysterectomy (Chronic) H/O neck surgery (Chronic) History of cholecystectomy (Chronic) H/O oophorectomy (Chronic) S/P repair of paraesophageal hernia (Chronic) History of total right hip replacement (Chronic) S/P lumbar fusion (Chronic) H/O hemorrhoidectomy (Chronic) Hx of aortic valve replacement, mechanical (Chronic) H/O mitral valve replacement with mechanical valve (Chronic) Family History Father Heart disease Mother Stroke Social History Preferred Language: Moroccan Communication Ability: Impaired Advanced Seal Delivery System Required: No Beliefs That Will Affect Care: None Current Living Situation: Spouse Other Information That Helps Us Care for You: No Feels Safe at Home: Yes Safety Concerns: Feels Safe At This Time Smoking Status: Never smoker Do You Dip or Chew Tobacco: No ; Second Hand Exposure: No ; Tobacco Cessation Education Requested by Patient: No Hx Alcohol Use: No Hx Substance Use: No Physical Exam Physical Exam: Physical Exam: Constitutional: appearance nourished, healthy and normal Ears, Nose, Mouth and Throat: mucous membranes moist, no injection and skin normal, eyes normal Cardiovascular: loud snaps both systolic and diastolic Respiratory: clear to auscultation (CTA) and no rales, rhonchi or wheeze Musculoskeletal: no peripheral edema and good distal pulses Skin: no stigmata of neurocutaneous disease noted and normal and intact Eyes: extraocular muscles intact (EOMI) and pupils equal, round and reactive to light (PERRL) NEUROLOGIC EXAMINATION: Mental status: Alert and interactive Oriented to full date and location Oriented to person Speech continual babbling no understandable words Cranial Nerves smile eye brow raise symmetric Reflexes: Deep tendon reflexes were symmetrical and graded 2/5. up going toes. Sensory: light cool and vibration intact Coordination: finger to nose no bi pass Gait/Stance: Posture normal. sitting up in bed Motor: Negative for pronator drift of out stretched arms with eyes closed. Strength: biceps triceps hand risk and insurance consultant 5/5 hip flex patellar plantar flex ext 5/5 bilaterally Results & Data Vital Signs (Past 12 Hours) Vital Signs Temp Pulse Pulse Resp BP BP Pulse Ox 01/27/19 11:11 57 L 01/27/19 10:38 36.5 C 56 L 18 127/61 97 01/27/19 10:30 95 01/27/19 10:27 56 L 12 140/57 L 95 01/27/19 09:50 56 L 14 136/57 L 97 01/27/19 08:51 57 L 15 119/50 L 97 01/27/19 07:52 59 L 17 133/53 L 97 01/27/19 06:55 60 18 145/57 H 97 01/27/19 06:33 65 20 154/66 H 97 01/27/19 06:09 66 20 174/69 H 97 01/27/19 05:53 36.9 C 70 24 157/74 H 96 Laboratory Results Abnormal lab results 01/27/19 01/27/19 01/27/19 Range/Units 06:05 06:05 06:05 RBC 3.85 L (4.2-5.4) M/uL Hct 36.3 L (37-47) % RDW Std Deviation 50.0 H (36.4-46.3) fL MPV 10.7 H (7.4-10.4) fL Immature Gran # (Auto) 0.03 H (0.00-0.02) K/uL Coffee # (Auto) 1.50 H (0.11-0.59) K/uL PT 31.8 H (9.0-12.0) Seconds INR 3.4 H (0.9-1.1) APTT 47.6 H* (21.0-31.0) Seconds Chloride 111 H (98-107) mmol/L BUN 31 H (7-18) mg/dl Creatinine 2.12 H (0.6-1.2) mg/dl Urine Appearance (Clear) Urine Protein (Negative) Urine Blood (Negative) Urine WBC (Auto) (0-5) /hpf U Hyaline Cast (Auto) (0-5) /lpf U Epithel Cells (Auto) (0-5) /lpf Granular Casts (0) /lpf 01/27/19 Range/Units 06:30 RBC (4.2-5.4) M/uL Hct (37-47) % RDW Std Deviation (36.4-46.3) fL MPV (7.4-10.4) fL Immature Gran # (Auto) (0.00-0.02) K/uL Coffee # (Auto) (0.11-0.59) K/uL PT (9.0-12.0) Seconds INR (0.9-1.1) APTT (21.0-31.0) Seconds Chloride (98-107) mmol/L BUN (7-18) mg/dl Creatinine (0.6-1.2) mg/dl Urine Appearance Turbid A (Clear) Urine Protein 2+ H (Negative) Urine Blood 1+ H (Negative) Urine WBC (Auto) 10-30 H (0-5) /hpf U Hyaline Cast (Auto) >30 H (0-5) /lpf U Epithel Cells (Auto) >30 H (0-5) /lpf Granular Casts 10-20 H (0) /lpf Diagnostic Findings CT head- No acute intracranial abnormality. CXR-Chronic change. Mild emphysematous change. No acute process. CTA head- There are no lesion suspicious for aneurysm. There are no major intracranial branch occlusions. The dural venous sinuses appear patent. CTA neck-No evidence of hemodynamically significant carotid or vertebral artery stenosis. No evidence of dissection.
[2019-01-27] MEDS: LUBIPROSTONE 8 MCG CAP PO SCH (16:40)
[2019-01-27] MEDS: COLESTIPOL HCL 1 GM TAB PO SCH (20:32)
[2019-01-27] MEDS: MAGNESIUM OXIDE 400 MG TAB PO SCH (20:32)
[2019-01-27] MEDS: PREGABALIN 75 MG CAP PO SCH (20:33)
[2019-01-27] MEDS: METOPROLOL SUCC 25MG EXT REL TAB PO SCH (21:30)
[2019-01-28] MEDS: SODIUM CHLORIDE 0.9% 1000ML 1,000 ML IV SCH (01:29)
[2019-01-28 03:56] LABS: iSTAT Creatinine 2.2 mg/dl (0.6-1.3); iSTAT Hemoglobin 11.2 g/dl (12.0-16.0); iSTAT Ionized Calcium 1.24 mmol/l (1.12-1.32); iSTAT Potassium 4.6 mEq/L (3.3-5.0)
[2019-01-28] MEDS: LEVOTHYROXINE SODIUM 50 MCG TABLET PO SCH (05:58)
[2019-01-28 06:31] LABS: Hemoglobin 10.1 g/dL (12.0-16.0); Mean Corpuscular Hgb Conc 33.7 g/dL (32-36); Mean Corpuscular Volume 93.5 fL (80-100); Mean Platelet Volume 10.9 fL (7.4-10.4); Platelet Count 124 K/uL (130-400); RDW Coefficient of Variation 14.2 % (11.5-14.5); RDW Standard Deviation 48.2 fL (36.4-46.3); Red Blood Count 3.21 M/uL (4.2-5.4); White Blood Count 6.25 K/uL (4.8-10.8)
[2019-01-28 06:49] LABS: Prothrombin Time 34.9 Seconds (9.0-12.0)
[2019-01-28 07:00] LABS: INR 3.7 (0.9-1.1)
[2019-01-28 07:03] LABS: BUN Creatinine Ratio 14.1 (10-20); Calcium 8.1 mg/dl (8.5-10.1); Creatinine Clr Calc Pharmacy 25.5 ml/min; Est GFR (African American) 34.1; Est GFR (Non-African American) 29.4; Potassium 4.3 mmol/L (3.5-5.1)
[2019-01-28] MEDS: LUBIPROSTONE 8 MCG CAP PO SCH ×2 (08:03→16:47)
[2019-01-28] MEDS: cefTRIAXone SODIUM 1,000 MG in DEXTROSE 5% 50 ML IV SCH (08:03)
[2019-01-28] MEDS: FERROUS SULFATE 325 MG TAB PO SCH (08:04)
[2019-01-28] MEDS: ROSUVASTATIN CALCIUM 20 MG TAB PO SCH (08:04)
[2019-01-28] MEDS: LACTOBACILLUS ACIDOPHILUS (FLORANEX) TAB PO SCH (08:05)
[2019-01-28] MEDS: POTASSIUM CHLORIDE 20 MEQ TABCR PO SCH (08:05)
[2019-01-28] MEDS: MAGNESIUM OXIDE 400 MG TAB PO SCH ×2 (08:05→21:45)
[2019-01-28] MEDS: ASCORBIC ACID 500 MG TAB PO SCH (08:07)
[2019-01-28] MEDS: PREGABALIN 75 MG CAP PO SCH ×2 (08:13→21:45)
[2019-01-28] MEDS: METOPROLOL SUCC 25MG EXT REL TAB PO SCH ×2 (08:20→21:46)
[2019-01-28] MEDS: CITALOPRAM 20 MG TAB PO SCH (08:21)
[2019-01-28] MEDS ORDERED: NON-FORMULARY MEDICATION (Cranberry 500 MG) PO SCH (09:00)
[2019-01-28] MEDS: COLESTIPOL HCL 1 GM TAB PO SCH ×2 (10:37→22:46)
--- NOTE | 2019-01-28 14:10 | Hospitalist Progress Note ---
Date of Service January 28, 2019 Assessment & Plan (1) Aphasia: Presents on admission with speech abnormality with persistent babbling Previous admission in the past with aphasia with persistent babbling, with negative stroke work up both times CT head, CTA head/neck on admission without acute abnormality Urine cx negative Neuro on board recommended to continue coumadin Speech on board no further recommendation since symptoms resolved Speech is cleared PT recommended 24 hr care and home with PT Resolved (2) Acute metabolic encephalopathy: Possible related to polypharmacy and delirium CT head showed no acute finding Back to baseline today (3) Abnormal urinalysis: Urine cx negative Received IV rocephin for 2 days denies any urinary symptoms Will discontinue abx since urine cx negative (4) Paroxysmal SVT (supraventricular tachycardia): Concern for cerebral hypoperfusion in setting of arrhythmia picked up on tele during previous admission Zio patch monitoring revealed frequent short episodes of asymptomatic supraventricular tachycardia, 131 total episodes noted Was evaluated by Dr. Morin, who increased Toprol dose to 25mg BID No arrhythmia noted on tele monitor (5) Acute kidney injury superimposed on chronic kidney disease: Cr on admission 2.12 (baseline Cr 1.4) Possible related to poor oral intake Received IVF Creatinine 1.7 today Will check BMP in 1 week Avoid nephrotoxic agents (6) Hx of aortic valve replacement, mechanical: (7) H/O mitral valve replacement with mechanical valve: On coumadin with INR of 3.7 today Will hold resume coumadin at lower dose Monitor PT/INR Follow up with the [facility] (8) Hypertension: Normotensive Continue to hold lisinopril due to Continue Toprol. (9) BIRDIE (obstructive sleep apnea): Intolerant to CPAP Stable (10) Dementia: Will need 24 hr home care case discussed with case management for home health services (11) Hypothyroidism: Continue levothyroxine (12) Dyslipidemia: Continue statin DVT Ppx: Home coumadin Code status: FULL PCP: Dr Bass Dispo: Will discharge home today with home health services Subjective Pt was seen and examined Lying in bed with no distress Pt said that she feels fine She said that she had therapy done today and did ok She said that her speech his back to normal Denies any chest pain, palpitation, dizziness and SOB Physical Exam Physical Exam: General- No acute distress Head- atraumatic Eyes- PERRL, EOMI, ENT- oropharynx clear Neck- supple, no JVD Lungs- clear to auscultation Heart- regular rhythm; Abdomen- normal bowel sounds, soft, nontender Extremities- no calf tenderness Neuro- alert, oriented x 3; PERRL, EOMI; no facial palsy; no dysarthria Skin- warm & dry Results & Data Vital Signs (Past 12 Hours) Vital Signs Temp Pulse Pulse Resp BP Pulse Ox 01/28/19 11:26 36.6 C 65 18 93/51 L 95 01/28/19 07:48 54 L 01/28/19 07:06 36.6 C 53 L 18 115/51 L 95 01/28/19 04:46 36.6 C 54 L 16 116/63 96 (1) Hypertension Hypertension type: unspecified Qualified Code(s): I10 - Essential (primary) hypertension
[2019-01-28] MEDS ORDERED: WARFARIN SOD 2.5 MG TAB PO SCH (16:00)
[2019-01-29] MEDS: LEVOTHYROXINE SODIUM 50 MCG TABLET PO SCH (05:08)
[2019-01-29 07:21] LABS: Hematocrit (blood only) 30.2 % (37-47); Hemoglobin 10.6 g/dL (12.0-16.0); Mean Corpuscular Hgb Conc 35.1 g/dL (32-36); Mean Corpuscular Volume 91.5 fL (80-100); Mean Platelet Volume 10.6 fL (7.4-10.4); Platelet Count 128 K/uL (130-400); RDW Coefficient of Variation 13.8 % (11.5-14.5); RDW Standard Deviation 46.4 fL (36.4-46.3); White Blood Count 6.49 K/uL (4.8-10.8)
[2019-01-29 07:30] LABS: INR 2.3 (0.9-1.1); Prothrombin Time 21.9 Seconds (9.0-12.0)
[2019-01-29 07:56] LABS: BUN Creatinine Ratio 16.4 (10-20); Calcium 8.3 mg/dl (8.5-10.1); Creatinine Clr Calc Pharmacy 29.5 ml/min; Est GFR (African American) 40.7; Est GFR (Non-African American) 35.1
[2019-01-29] MEDS: cefTRIAXone SODIUM 1,000 MG in DEXTROSE 5% 50 ML IV SCH (09:08)
[2019-01-29] MEDS: CITALOPRAM 20 MG TAB PO SCH (09:20)
[2019-01-29] MEDS: LUBIPROSTONE 8 MCG CAP PO SCH (09:20)
[2019-01-29] MEDS: FERROUS SULFATE 325 MG TAB PO SCH (09:21)
[2019-01-29] MEDS: LACTOBACILLUS ACIDOPHILUS (FLORANEX) TAB PO SCH (09:21)
[2019-01-29] MEDS: ROSUVASTATIN CALCIUM 20 MG TAB PO SCH (09:21)
[2019-01-29] MEDS: POTASSIUM CHLORIDE 20 MEQ TABCR PO SCH (09:22)
[2019-01-29] MEDS: PREGABALIN 75 MG CAP PO SCH (09:22)
[2019-01-29] MEDS: MAGNESIUM OXIDE 400 MG TAB PO SCH (09:22)
[2019-01-29] MEDS: METOPROLOL SUCC 25MG EXT REL TAB PO SCH (09:26)
[2019-01-29] MEDS: ASCORBIC ACID 500 MG TAB PO SCH (09:27)
--- NOTE | 2019-01-29 10:18 | Hospitalist Progress Note ---
Date of Service January 29, 2019 Assessment & Plan (1) Aphasia: Presents on admission with speech abnormality with persistent babbling Previous admission in the past with aphasia with persistent babbling, with negative stroke work up both times CT head, CTA head/neck on admission without acute abnormality Urine cx negative Neuro on board recommended to continue coumadin Speech on board no further recommendation since symptoms resolved Speech is cleared PT recommended 24 hr care and home with PT Resolved (2) Acute metabolic encephalopathy: Possible related to polypharmacy and delirium CT head showed no acute finding Back to baseline today (3) Abnormal urinalysis: Urine cx negative Received IV rocephin for 3 days denies any urinary symptoms Discontinued IV Rocephin since urine cx negative (4) Paroxysmal SVT (supraventricular tachycardia): Concern for cerebral hypoperfusion in setting of arrhythmia picked up on tele during previous admission Zio patch monitoring revealed frequent short episodes of asymptomatic supraventricular tachycardia, 131 total episodes noted Was evaluated by Dr. Morin, who increased Toprol dose to 25mg BID No arrhythmia noted on tele monitor (5) Acute kidney injury superimposed on chronic kidney disease: Cr on admission 2.12 (baseline Cr 1.4) Possible related to poor oral intake IVF discontinued Creatinine 1.5 today Avoid nephrotoxic agents Continue monitor BMP (6) Hx of aortic valve replacement, mechanical: (7) H/O mitral valve replacement with mechanical valve: On coumadin with INR of 2.3 today Will hold resume coumadin at lower dose Monitor PT/INR Follow up with the coag clinic (8) Hypertension: Normotensive Continue to hold lisinopril due to Continue Toprol. (9) BIRDIE (obstructive sleep apnea): Intolerant to CPAP Stable (10) Dementia: Will need 24 hr home care case discussed with case management for home health services (11) Hypothyroidism: Continue levothyroxine (12) Dyslipidemia: Continue statin DVT Ppx: Home coumadin Code status: FULL PCP: Dr Bass Dispo: Will discharge home today with home health services Subjective Pt was seen and examined Lying in bed with no distress Pt said that she feels fine denies any chest pain, palpitation, dizziness and SOB Physical Exam Physical Exam: General- No acute distress Head- atraumatic Eyes- PERRL, EOMI, ENT- oropharynx clear Neck- supple, no JVD Lungs- clear to auscultation Heart- regular rhythm; Abdomen- normal bowel sounds, soft, nontender Extremities- no calf tenderness Neuro- alert, oriented, PERRL, EOMI; no facial palsy; no dysarthria Skin- warm & dry Results & Data Vital Signs (Past 12 Hours) Vital Signs Temp Pulse Pulse Pulse Resp BP BP 01/29/19 09:20 60 16 101/48 L 01/29/19 07:25 58 L 01/29/19 07:23 36.8 C 59 L 20 104/60 01/29/19 05:14 55 L 16 123/68 01/28/19 23:46 65 01/28/19 22:57 36.6 C 61 18 133/61 Pulse Ox 01/29/19 09:20 96 01/29/19 07:25 01/29/19 07:23 96 01/29/19 05:14 96 01/28/19 23:46 01/28/19 22:57 96 (1) Hypertension Hypertension type: unspecified Qualified Code(s): I10 - Essential (primary) hypertension
[2019-01-29] MEDS: COLESTIPOL HCL 1 GM TAB PO SCH (11:01)
[2019-01-29] MEDS ORDERED: STROKE PATIENT DISCHARGE STA (12:26)
[2019-01-31] MEDS ORDERED: WARFARIN SOD 1.25 MG TAB PO SCH (16:00)
--- NOTE | 2019-02-02 12:33 | Discharge Summary ---
Date of Service January 29, 2019 Admission HPI Per Admitting Provider This is a 68yo F with a PMH of HTN, h/o CVA, HLD, CKD III, BIRDIE intolerant to CPAP, pulmonary HTN, h/o aortic valve and mitral valve replacements on coumadin and other medical problems listed below who presents with speech abnormality since the middle of the night. Patient woke up her during the night with "babbling" and increased confusion. Has been admitted previously in July and August with aphasia/per sistent babbling. In July, patient was life flighted to [facility] for concerns of acute CVA. Stroke and seizure workup at [place] was negative and patient was found to have an acute UTI and altered mental status was attributed to metabolic encephalopathy. During August admission at [facility], CT head, CTA head/neck were negative but patient did not appear to have UTI at this time. Psych was consulted to evaluate for polypharmacy contributing to AMS and the service recommended discontinuing memantine and pramipexole as well as decreasing gabapentin dose as well as avoiding deliriogenic medications (benzodiazepines, anticholinergics, anti-histaminergics, and other centrally acting medications) that may be contributing to sudden onset aphasia. Considered possibility of arrhythmia with transient cerebral hypoperfusion and recommended Zio patch to be ordered in outpatient setting for further evaluation of arrhythmia. Today, history obtained today from at bedside, who denies patient mentioning any preceding headache, visual changes, chest pain or SOB. Has been eating normally, denying nausea, vomiting or abdominal pain. No urinary symptoms, diarrhea or constipation. At baseline, patient has dementia but is able to manage her home medications, ambulate independently and care for herself alone in the home. Does have BIRDIE but is intolerant to CPAP. In the ED, head CT, head/neck CTA are negative for acute findings. No leukocytosis or electrolyte abnormalities. Creatinine elevated at 2.12 (baseline Cr ~ 1.4). UA abnormal with culture pending. Patient started on Rocephin and given 1 L NSS. Admission Exam Per Admitting Provider General Appearance: WD/WN, no apparent distress, resting comfortably Head: normocephalic, atraumatic Eyes: normal inspection, PERRL, EOMI ENT: hearing grossly normal, pharynx normal (moist mucous membranes) Neck: supple, no JVD, no adenopathy Respiratory/Chest: lungs clear to auscultation. No wheezes, rales or rhonci. No respiratory distress or accessory muscle use Cardiovascular: bradycardic rate, regular rhythm, metallic click noted on ausc ultation, no murmur, normal peripheral pulses Abdomen/GI: normal bowel sounds, soft, non-tender to palpation Extremities/Musculoskelatal: normal inspection, no calf tenderness, normal capillary refill, no pedal edema Neurologic/Psych: alert, unable to assess orientation due to aphasia/persistent babbling, normal mood/affect, able to follow commands, CN II-XII grossly intact, active ROM, 5/5 GUNJAN in all 4 quadrants, heel to gibson movement intact Skin: normal color, warm/dry Principal Diagnosis Aphasia Acute metabolic encephalopathy Abnormal urinalysis Hypertension Obstructive sleep apnea Paroxysmal SVT (supraventricular tachycardia) Acute kidney injury superimposed on chronic kidney disease Hx of aortic valve replacement, mechanical H/O mitral valve replacement with mechanical valve Dementia Discharge Exam General- No acute distress Head- atraumatic Eyes- PERRL, EOMI, ENT- oropharynx clear Neck- supple, no JVD Lungs- clear to auscultation Heart- regular rhythm; Abdomen- normal bowel sounds, soft, nontender Extremities- no calf tenderness Neuro- alert, oriented, PERRL, EOMI; no facial palsy; no dysarthria Skin- warm & dry Discharge Data Allergies Allergy/AdvReac Type Severity Reaction Status Date / Time Bactrim Allergy Unknown . Verified 10/16/16 13:02 doxycycline Allergy Unknown . Verified 10/10/18 16:43 sulfamethoxazole Allergy Unknown . Verified 10/10/18 16:43 trimethoprim Allergy Unknown . Verified 10/10/18 16:43 Consultations 01/27/19 07:55 ED Decision to Admit Stat 01/27/19 11:00 Consult Case Management - Discharge Planning Routine Consult Neurology Routine Ordered Studies 01/27/19 06:11 CT head/brain wo con Stat 01/27/19 06:12 CT angio head w con Stat CT angio neck with con Stat CT angio neck with con CLINICAL HISTORY: aphasia COMPARISON STUDY: 10/10/2018 TECHNIQUE: CT angiography was performed from the aortic arch to the skull base. MIP imaging was performed. The patient was scanned in a dynamic helical fashion during intravenous administration of 118 cc of Optiray 320. A dose lowering technique was utilized adhering to the principles of ALARA. CT DOSE: Technique: CT angiogram of the carotid and vertebral arteries was obtained using intravenous contrast and 3-D reconstruction. NASCET criteria was utilized. Findings: The right carotid revealed no evidence of aneurysm and no evidence of dissection. There is no evidence of hemodynamic significant stenosis. There is mixed plaque at the level of the proximal left internal carotid artery with a 33% diameter stenosis. There is no evidence of hemodynamically significant vertebral stenosis. There is no evidence of vertebral dissection. IMPRESSION: No evidence of hemodynamically significant carotid or vertebral artery stenosis. No evidence of dissection. Electronically signed by: Bob Gonzalez M.D. 01/27/2019 6:59 AM Dictated: 01/27/19655 Transcribed: 01/27/19655 CT angio head w con CLINICAL HISTORY: aphasia TECHNIQUE: CT angiography of the head was performed in a dynamic helical fashion during intravenous administration of 118 cc of Optiray 320. MIP imaging was performed. A dose lowering technique was utilized adhering to the principles of ALARA. CT DOSE: 1079.63 mGy.cm COMPARISON STUDY: October 10, 2018 FINDINGS: There are no lesion suspicious for aneurysm. There are no major intracranial branch occlusions. The dural venous sinuses appear patent. IMPRESSION: Normal study. Electronically signed by: Bob Gonzalez M.D. 01/27/2019 6:56 AM Dictated: 01/27/19653 Transcribed: 01/27/19653 XR chest 1V portable CLINICAL HISTORY: aphasia dysphagia. Pain. COMPARISON STUDY: 10/10/2018 FINDINGS: Mild stable cardiomegaly. Diaphragms are smooth. Mild emphysematous change. Block atelectasis at lung bases considered chronic. IMPRESSION: Chronic change. Mild emphysematous change. No acute process. The above report was generated using voice recognition software. It may contain grammatical, syntax or spelling errors. Electronically signed by: Nando Hernandez M.D. 01/27/2019 6:23 AM Dictated: 01/27/19622 Transcribed: 01/27/19622 CT head/brain wo con CT DOSE: HISTORY: Mental status change Stroke evaluation TECHNIQUE: Multiaxial CT images of the head were performed without the use of intravenous contrast. A dose lowering technique was utilized adhering to the principles of ALARA. Comparison: 10/10/2018 Findings: The paranasal sinuses and mastoid air cells are clear. The calvarium and skull base are intact. The ventricles and sulci are within normal limits. There is no mass, hematoma, midline shift, or acute infarct. Small old left basal ganglia infarct. Impression: No acute intracranial abnormality. The above report was generated using voice recognition software. It may contain grammatical, syntax or spelling errors. Electronically signed by: Nando Hernandez M.D. 01/27/2019 6:56 AM Dictated: 01/27/19653 Transcribed: 01/27/19653 Hospital Course (1) Aphasia: Presents on admission with speech abnormality with persistent babbling Previous admission in the past with aphasia with persistent babbling, with negative stroke work up both times CT head, CTA head/neck on admission without acute abnormality Urine cx negative Neuro on board recommended to continue coumadin Speech on board no further recommendation since symptoms resolved Speech is cleared PT recommended 24 hr care and home with PT Resolved (2) Acute metabolic encephalopathy: Possible related to polypharmacy and delirium CT head showed no acute finding Back to baseline today (3) Abnormal urinalysis: Urine cx negative Received IV rocephin for 3 days denies any urinary symptoms Discontinued IV Rocephin since urine cx negative (4) Paroxysmal SVT (supraventricular tachycardia): Concern for cerebral hypoperfusion in setting of arrhythmia picked up on tele during previous admission Zio patch monitoring revealed frequent short episodes of asymptomatic supraventricular tachycardia, 131 total episodes noted Was evaluated by Dr. Morin, who increased Toprol dose to 25mg BID No arrhythmia noted on tele monitor (5) Acute kidney injury superimposed on chronic kidney disease: Cr on admission 2.12 (baseline Cr 1.4) Possible related to poor oral intake IVF discontinued Creatinine 1.5 today Avoid nephrotoxic agents Continue monitor BMP (6) Hx of aortic valve replacement, mechanical: (7) H/O mitral valve replacement with mechanical valve: On coumadin with INR of 2.3 today Will hold resume coumadin at lower dose Monitor PT/INR Follow up with the coag clinic (8) Hypertension: Normotensive Continue to hold lisinopril due to Continue Toprol. (9) BIRDIE (obstructive sleep apnea): Intolerant to CPAP Stable (10) Dementia: Will need 24 hr home care case discussed with case management for home health services (11) Hypothyroidism: Continue levothyroxine (12) Dyslipidemia: Continue statin DVT Ppx: Home coumadin Code status: FULL PCP: Dr aBss Dispo: Will discharge home today with home health services Total Time Total Time Spent Total Time Spent (In Minutes): 35 minutes Total Time Includes: Examination of the Patient, Discharge Planning, Medication Reconciliation, Communication With Other Providers and Other Discharge Plan Discharge Items Patient Disposition: Home - Home Health Services Reason For Visit: SPEECH ABNORMALITY Discharge Diagnosis: Aphasia Acute metabolic encephalopathy Abnormal urinalysis Hypertension Obstructive sleep apnea Paroxysmal SVT (supraventricular tachycardia) Acute kidney injury superimposed on chronic kidney disease Hx of aortic valve replacement, mechanical H/O mitral valve replacement with mechanical valve Dementia Discharge Goals: Decrease discomfort, Improve disease control, Increase independence and Improve nutritional status Activity: Resume your previous activity Activity Comment: As tolerated Non-emergency contact: Primary Care Provider Call non-emergency contact if: you have any medication questions Follow-up/Referrals: Gomez Bass MD [Primary Care Provider] - Diet: Heart Healthy Addtl Provider Instructions: Follow up with your primary care provider Dr. Amezcua on 02/05 @ 1200PM Follow up with the coumadin clinic to monitor INR Fall precaution Continue physical and occupational therapy Check BMP in 1 week to monitor kidney function Prescriptions: Continued citalopram 20 mg tablet 20 mg PO QAM RF: 0 levothyroxine 50 mcg tablet 50 mcg PO QAM RF: 0 lisinopril 2.5 mg tablet 2.5 mg PO QAM RF: 0 lubiprostone 8 mcg capsule 8 mcg PO BIDM RF: 0 metoprolol succinate 50 mg Tablet Extended Release 24 Hr 25 mg PO BID RF: 0 acidophilus-pectin, citrus [Acidophilus Probiotic] 100 million cell-10 mg Capsule 1 cap PO QAM RF: 0 magnesium oxide 400 mg capsule 400 mg PO BID Qty: 60 RF: 5 ferrous sulfate 325 mg (65 mg iron) Tablet 325 mg PO QAM RF: 0 warfarin 2.5 mg tablet 1.25 mg PO TUSA@1600 RF: 0 warfarin 2.5 mg tablet 2.5 mg PO SUMOWETHFR@1600 RF: 0 pregabalin [Lyrica] 75 mg capsule 75 mg PO BID RF: 0 colestipol 1 gram tablet 2 g PO BID RF: 0 potassium chloride 20 mEq tablet,ER particles/crystals 20 meq PO DAILY RF: 0 rosuvastatin 20 mg tablet 20 mg PO DAILY RF: 0 ascorbic acid (vitamin C) 1,000 mg Tablet 1 g PO DAILY RF: 0 dicyclomine 10 mg capsule 10 mg PO BID PRN (Reason: Diarrhea) RF: 0 cranberry 500 mg Capsule 500 mg PO DAILY RF: 0 Stand-Alone Forms: [facility] Discharge Orders: Discharge Order (Routine); Ordered 01/29/19 Ordered By: Arun Wilder Admission Data Admit Date/Time: 01/27/19 10:04 Attending Provider: Arun Wilder Admit Provider: Arun Wilder Primary Care Provider: Gomez Bass Other Providers: Arun Wilder ; [place] Brian Service: Telemetry Medical Other Interventions: Discharge Summary Assessment (RN) Last Done: 01/29/19 13:07 DC Date/Time DO NOT enter until pt leaves facility: 01/29/19 02:15
--- NOTE | 2019-02-03 05:54 | Coding Query ---
CODING QUERY To promote full compliance with coding requirements relating to patient care, provider participation is requested in all cases of label coder uncertainty. Please assist us with the question(s) below: Coding Question(s): Patient admitted with speech abnormalities, abnormal urine analysis, metabolic encephalopathy. Treated for UTI-3 days of IV Rocephin. Final C/S urine negative. * Stroke was ruled out. Similar symptoms on recent prior admissions. Please document the etiology of the metabolic encephalopathy if known or suspected. Thank you ! LEONARDA Schmid [facility] Physician's Response(s): possible related to polypharmacy Principal Diagnosis: "that condition established after study, to be chiefly responsible for occasioning the admission of the patient to the hospital for care." Co-Existing Principal Diagnosis: "when two or more diagnoses equally meet the criteria for principal diagnosis as determined by the circumstances of admission, diagnostic work up, and/or therapy provided, and the Alphabetic Index, Tabular List, or another coding guideline does not provide sequencing direction, any one of the diagnoses may be sequenced first." "When the physician has documented what appears to be a current diagnosis in the body of the record, but has not included the diagnosis in the final diagnostic statement, the physician should be asked whether the diagnosis should be added." ([facility] 2 QTR90. p3-4) [facility]
== END 2019-01-29 02:15 | disposition home health service (06) | DRG 92 ==
LOC: ED 05:49 → 2N 10:04

== ENCOUNTER 2019-06-12 14:30 | Observation (INO) ==
[2019-06-12] MEDS ORDERED: SODIUM CHLORIDE 0.9% 500 ML IV SCH (15:45)
--- NOTE | 2019-06-12 16:02 | XRay Report ---
SINGLE VIEW CHEST CLINICAL HISTORY: Generalized weakness. FINDINGS: An AP, portable, upright chest radiograph is compared to study dated 01/27/2019. Correlation is made with chest CT dated 12/12/2015. The examination is degraded by portable technique and apical lordotic positioning. The patient is status post midline sternotomy and cardiac valve surgery. The he art is enlarged noting atherosclerotic calcification of the thoracic aorta. The pulmonary vasculature is noncongested. There is bibasilar scarring/atelectasis. No airspace consolidation or large pleural effusion is identified. No pneumothorax is seen. The skeletal structures are osteopenic. The bony th orax is grossly intact. IMPRESSION: Cardiomegaly with no acute cardiopulmonary abnormality. ACT 112: Negative or not required by law. Electronically signed by: Amaury Mcgovern M.D. 06/12/2019 4:01 PM
--- NOTE | 2019-06-12 16:18 | CT Scan Report ---
CT head/brain wo con CLINICAL HISTORY: 69 years-old Female with dizzy, weakness. Acute dizziness with weakness TECHNIQUE: Multiple axial CT images of the head were obtained without contrast. A dose lowering tech nique was utilized adhering to the principles of ALARA. CT DOSE: 537.48 mGy.cm COMPARISON: Head CT 04/29/2019 FINDINGS: No acute intracranial hemorrhage, midline shift, intracranial mass, hydrocephalus, territorial ischem ia or abnormal extra-axial collection. Minimal patchy white matter hypodensities suggest chronic micr ovascular ischemic disease. Small remote lacunar infarction of the left thalamus, unchanged. The calvarium is intact. The paranasal sinuses, mastoid air cells, and middle ear cavities are clear . IMPRESSION: No acute intracranial abnormality. ACT 112: Negative or not required by law. The above report was generated using voice recognition software. It may contain grammatical, syntax o r spelling errors. Electronically signed by: Cm Clinton M.D. 06/12/2019 4:17 PM
[2019-06-12 16:19] LABS: Basophils # (auto) 0.02 K/uL (0-0.2); Basophils % (auto) 0.2 %; Eosinophils # (auto) 0.14 K/uL (0-0.5); Eosinophils % (auto) 1.5 %; Hematocrit (blood only) 37.7 % (37-47); Hemoglobin 12.3 g/dL (12.0-16.0); Immature Granulocytes # (auto) 0.02 K/uL (0.00-0.02); Immature Granulocytes % (auto) 0.2 %; Lymphocytes # (auto) 1.21 K/uL (1.2-3.4); Lymphocytes % (auto) 13.1 %; Mean Corpuscular Hemoglobin 30.4 pg (25-34); Mean Corpuscular Hgb Conc 32.6 g/dL (32-36); Mean Corpuscular Volume 93.3 fL (80-100); Mean Platelet Volume 11.4 fL (7.4-10.4); Monocytes % (auto) 8.7 %; Neutrophils # (auto) 7.04 K/uL (1.4-6.5); Neutrophils % (auto) 76.3 %; Platelet Count 152 K/uL (130-400); RDW Coefficient of Variation 13.9 % (11.5-14.5); RDW Standard Deviation 47.5 fL (36.4-46.3); Red Blood Count 4.04 M/uL (4.2-5.4); White Blood Count 9.23 K/uL (4.8-10.8)
[2019-06-12 16:30] LABS: INR 2.7 (0.9-1.1)
[2019-06-12 17:10] LABS: Appearance Urine Clear (Clear); Bacteria Urine Automated Negative (Negative); Bilirubin Urine Negative (Negative); Blood Urine Negative (Negative); Cast Urine Automated 0 /lpf (0-5); Color Urine Yellow; Glucose Urine UA Negative (Negative); Ketones Urine Negative (Negative); Leukocyte Esterase Urine Negative (Negative); Nitrite Urine Negative (Negative); RBC Urine Automated 0-4 /hpf (0-4); Specific Gravity Urine 1.014 (1.000-1.030); Urobilinogen Urine Negative (Negative)
[2019-06-12 17:15] LABS: Protein Urine Negative (Negative); Sulfosalicylic Acid Urine Negative (Negative)
[2019-06-12 17:19] LABS: Alanine Aminotransferase 14 U/L (12-78); Albumin Globulin Ratio 0.9 (0.9-2); Albumin Level 3.5 gm/dl (3.4-5.0); Alkaline Phosphatase 113 U/L (45-117); Bilirubin,Total 0.8 mg/dl (0.2-1); Blood Urea Nitrogen 20 mg/dl (7-18); Carbon Dioxide 31 mmol/L (21-32); Chloride 108 mmol/L (98-107); Est GFR (African American) 52.3; Est GFR (Non-African American) 45.2; Globulin 3.8 gm/dl (2.5-4.0); Glucose 83 mg/dl (70-99); Sodium 142 mmol/L (136-145); Total Protein 7.3 gm/dl (6.4-8.2); Troponin I < 0.015 ng/ml (0-0.045)
[2019-06-12 19:06] LABS: Potassium 4.1 mmol/L (3.5-5.1)
--- NOTE | 2019-06-12 20:04 | History & Physical Report ---
Date of Service June 12, 2019 Assessment & Plan (1) Dizziness: (2) Ambulatory dysfunction: -Admit to [facility] w/ telemtery -Patient presenting from home with reports of dizziness after standing and ambulating -Requires assistance of 2 during ambulation trial in ER -No symptoms at rest, no focal deficits on exam -CT head negative for acute findings -Orthostatic BPs checked and negative -UA does not suggest UTI -Unable to obtain MRI due to mechanical aortic and mitral valves -If no improvement by tomorrow, consider neurology evaluation -PT/OT (3) Hypertension: (4) Paroxysmal SVT (supraventricular tachycardia): -BP and heart rate controlled -Continue metoprolol (5) Hx of aortic valve replacement, mechanical: (6) H/O mitral valve replacement with mechanical valve: -Anticoagulant Coumadin, INR 2.7 (7) History of CVA (cerebrovascular accident): -Continue aspirin and statin (8) Chronic pain: -Continue Lyrica (9) Hypothyroidism: -Continue levothyroxine (10) DVT prophylaxis: -Anticoagulated on Coumadin with therapeutic INR History of Present Illness Chief Complaint: Dizziness Primary Care Provider: Gomez Bass MD 69-year-old female who presents the ED for evaluation of dizziness. Patient reports that this afternoon, she was walking to the bathroom when she had sudden onset of dizziness. Patient was then brought to the ED for further evaluation. Patient denies any associated unilateral numbness, tingling, weakness. No aphasia, facial droop, drooling. Denies headache and blurred vision. Symptoms resolved with the patient arrived to the ED however during ambulation trial, patient required assistance of 2 people due to recurrent dizziness. When she returned to bed, dizziness resolved. Patient reports she otherwise has been feeling well recently. No chest pain or shortness of breath. Denies abdominal pain, nausea, vomiting, diarrhea. No urinary symptoms. In the ED, head CT is negative for acute findings. Labs are unremarkable. Patient was given IVF. Allergies Allergy/AdvReac Type Severity Reaction Status Date / Time Bactrim Allergy Unknown . Verified 10/16/16 13:02 doxycycline Allergy Unknown . Verified 06/12/19 16:34 sulfamethoxazole Allergy Unknown . Verified 06/12/19 16:34 trimethoprim Allergy Unknown . Verified 06/12/19 16:34 Home Medications Home Medications Medication Instructions Recorded Confirmed Type citalopram 20 mg PO QAM 07/31/18 06/12/19 History levothyroxine 50 mcg PO QAM 07/31/18 06/12/19 History metoprolol succinate 25 mg PO BID 07/31/18 06/12/19 History warfarin 1.25 mg PO TUTHSA 10/10/18 06/12/19 History warfarin 2.5 mg PO SUMOWEFR 10/10/18 06/12/19 History ascorbic acid (vitamin C) 1,000 mg PO DAILY 01/27/19 06/12/19 History colestipol 2 g PO BID 01/27/19 06/12/19 History cranberry 500 mg PO DAILY 01/27/19 06/12/19 History dicyclomine 10 mg PO BID PRN 01/27/19 06/12/19 History rosuvastatin 20 mg PO DAILY 01/27/19 06/12/19 History Lactobacillus acidophilus 100 mg PO TIDM 06/12/19 06/12/19 History [Acidophilus] conjugated estrogens [Premarin] See Rx Instructions .ROUTE .COMPLEX 06/12/19 06/12/19 History magnesium oxide 400 mg PO BID 06/12/19 06/12/19 History potassium chloride 20 meq PO DAILY 06/12/19 06/12/19 History pregabalin 100 mg PO TID 06/12/19 06/12/19 History Past Med/Surg History Medical History Chronic constipation (Chronic) Chronic pain (Chronic) CKD (chronic kidney disease), stage III (Chronic) CVA (cerebral vascular accident) (Chronic) Dyslipidemia (Chronic) Hypertension (Chronic) Hypothyroidism (Chronic) BIRDIE (obstructive sleep apnea) (Chronic) Paroxysmal SVT (supraventricular tachycardia) (Chronic) RLS (restless legs syndrome) (Chronic) Surgical History H/O hemorrhoidectomy (Chronic) H/O mitral valve replacement with mechanical valve (Chronic) H/O neck surgery (Chronic) H/O oophorectomy (Chronic) History of cholecystectomy (Chronic) History of total right hip replacement (Chronic) Hx of aortic valve replacement, mechanical (Chronic) S/P lumbar fusion (Chronic) S/P repair of paraesophageal hernia (Chronic) S/P total abdominal hysterectomy (Chronic) Family History Father Heart disease Mother Stroke Social History Preferred Language: Occitan Communication Ability: Impaired 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 Beliefs That Will Affect Care: None marital status: Current Living Situation: Spouse current occupational status: retired Other Information That Helps Us Care for You: No Feels Safe at Home: Yes Safety Concerns: Feels Safe At This Time Smoking Status: Never smoker Second Hand Exposure: No ; Hx Alcohol Use: No Hx Substance Use: No Review of Systems Review of Systems: ROS per HPI, all other systems reviewed and negative Physical Exam Constitutional: WD/WN, vitals as above Eyes: PERRL, conjunctivae normal, anicteric sclerae ENMT: external ear and nose normal, oropharynx normal Respiratory: normal respiratory effort, lungs clear to auscultation Cardiovascular: Rate/Rhythm: regular rate and regular rhythm Vessels: normal peripheral pulses Extremities: no edema Mechanical valve clicking noted Gastrointestinal (Abdomen): normal bowel sounds, soft, nontender, no hepatosplenomegaly Musculoskeletal: no cyanosis or clubbing, extremities motor strength 5/5 Skin: no rashes, warm and dry Neurologic: PERRL, EOMI, accommodation nl, no face palsy, no dysarthria moves all extremities and awake; no focal motor deficits and not confused Motor/Sensory: no pronator drift Coordination: normal [id number] test and normal [id number] test Psychiatric: A+Ox3, euthymic affect Results & Data Vital Signs (Past 12 Hours) Vital Signs Temp Pulse Resp BP Pulse Ox 06/12/19 19:00 53 L 13 141/62 H 96 06/12/19 18:32 55 L 11 L 95 06/12/19 18:30 55 L 13 135/52 L 95 06/12/19 18:00 56 L 15 152/57 H 97 06/12/19 17:56 57 L 13 162/57 H 06/12/19 17:55 56 L 14 160/62 H 06/12/19 17:30 53 L 13 142/61 H 98 06/12/19 17:00 54 L 12 152/60 H 96 06/12/19 16:30 129/56 L 06/12/19 16:10 57 L 13 146/55 H 06/12/19 16:00 58 L 14 145/76 H 94 06/12/19 15:48 55 L 14 96 06/12/19 15:47 55 L 12 154/60 H 96 06/12/19 15:40 55 L 13 163/65 H 95 06/12/19 15:30 55 L 11 L 96 06/12/19 15:00 55 L 12 95 06/12/19 14:43 60 12 96 06/12/19 14:34 59 L 14 171/75 H 95 06/12/19 14:30 36.9 C 60 20 171/75 H 96 Laboratory Results Short CBC 06/12/19 Range/Units 16:03 WBC 9.23 (4.8-10.8) K/uL Hgb 12.3 (12.0-16.0) g/dL Hct 37.7 (37-47) % Plt Count 152 (130-400) K/uL BMP 06/12/19 06/12/19 16:03 18:35 Sodium 142 Potassium 4.1 Chloride 108 H Carbon Dioxide 31 BUN 20 H Creatinine 1.22 H Glucose 83 Calcium 9.0 Cardiac Enzymes 06/12/19 Range/Units 16:03 Troponin I < 0.015 (0-0.045) ng/ml Liver Function 06/12/19 06/12/19 Range/Units 16:03 18:35 Total Bilirubin 0.8 (0.2-1) mg/dl AST 19 (15-37) U/L ALT 14 (12-78) U/L Alkaline Phosphatase 113 (45-117) U/L Albumin 3.5 (3.4-5.0) gm/dl Urine 06/12/19 Range/Units 16:35 Urine Color Yellow Urine Appearance Clear (Clear) Urine pH 8.0 H (4.5-7.5) Ur Specific [place] 1.014 (1.000-1.030) Urine Protein Negative (Negative) Urine Glucose (UA) Negative (Negative) Diagnostic Findings HEAD CT IMPRESSION: No acute intracranial abnormality. CXR IMPRESSION: Cardiomegaly with no acute cardiopulmonary abnormality. Code Status & VTE Plan Code Status Patient is a full code as per my discussion with her. VTE Prophylaxis Plan VTE Prophylaxis will be ordered: Yes Supervising Physician Co-Signing Physician Notes ATTENDING ADDENDUM : Pt seen and examined , care co -ordinated with Justyna HENRY 69 yo F presented with episode of dizzy spell , no weakness or paresthesia , no complain of palpitation , no COOK or chest heaviness /angina symptom will be oberserved in Tle overnight R/o arrythmia PHYSICAL EXAM : GENERAL: No sign of distress, HEENT: Sclera nonicteric, pink-purple bilateral equal reactive to light extraocular muscle intact Normal oral mucosa, neck: No JVD, no thyromegaly, trachea midline Lungs: Clear to auscultate, no wheeze or rales Cardiovascular: Regular S1 and S2, no murmur or gallop, no JVD, no lower extremity edema Abdomen: Soft, nontender, bowel sounds active, no hepatosplenomegaly Extremities: No rash or deformity, normal joint, Neuro: No focal neurological deficit, no dysarthria, no facial droop Psych: Alert awake oriented x3: Euthymic Skin: No rash LYMPH NODES: No cervical lymphadenopathy DIZZY SPELL /LIGHTHEADEDNESS : no evidence of CVA , CT Head negative, no focal deficit on neuro eval r/o arrythmia orthostatic vital ordered monitor in tele to R/Arrythmia S/P MECHANICAL VALVE REPLACEMENT ( MITRAL AND AORTIC VALVE ) with hx of rheumatic heart disease on Coumadin -cont INR 2.7 -within theraputic range , goal INR 2.5-3.5 will order for ECHO , no evidence of vol overload , CHF or cardiac decompensation FULL CODE DISPOSITION : observe in Tele expected to be discharged home when medically stable please refer to further documentation by Justyna HENRY for discussion of other chronic issues Terri Ram MD (1) Hypertension Hypertension type: unspecified Qualified Code(s): I10 - Essential (primary) hypertension
[2019-06-12] MEDS ORDERED: ACETAMINOPHEN 325 MG TAB PO PRN (20:47)
[2019-06-12] MEDS ORDERED: WARFARIN SOD 2.5 MG TAB PO SCH (21:00)
--- NOTE | 2019-06-12 21:34 | Emergency Department Note ---
Entered by Elena Flannery acting as a scribe for History of Present Illness General Chief complaint: Illness Stated complaint: weakness Time Seen by Provider: 06/12/19 15:31 Source: patient and family (daughter) History of Present Illness Onset (ago): day(s) 1 Location: head (illness) Pain Consistency: + other (worsening) Exacerbated By: + movement (vertigo worsened by standing up) Associated symptoms: + denies other symptoms (trouble with speech, numbness, vision problems, body aches, burning urination, and a runny nose), + weakness and + other (tiredness); no chest pain, no headaches, no nausea/vomiting and no shortness of breath The patient is a 69 year old F who presents to the Emergency Room with complaints of a worsening illness that started 1 day ago. The patient states that she was trying to get out of bed, today, to go to the bathroom. She adds that she was experiencing vertigo when she stood up. She notes that her son helped her lay down on her couch. She states that she is currently experiencing weakness and tiredness. She denies that she is currently experiencing trouble with speech, chest pain, shortness of breath, nausea, numbness, vision problems, headaches, body aches, burning urination, and a runny nose. The patients daughter states that the patient has a history of strokes, UTIs, stage 3 CKD, and heart valve issues. She notes that the patients last UTI was in April. She adds that the patient present with stroke-like symptoms with her previous UTI. She notes that the patients blood pressure was high today. She adds that the patient only had a couple of cookies to eat today. She states that the patient has been staying in bed mostly. She denies that the patient has a history of falls. She states that the patient is currently on Coumadin. Home Medications Home Medications Medication Instructions Recorded Confirmed Type citalopram 20 mg PO QAM 07/31/18 06/12/19 History levothyroxine 50 mcg PO QAM 07/31/18 06/12/19 History metoprolol succinate 25 mg PO BID 07/31/18 06/12/19 History warfarin 1.25 mg PO TUTHSA 10/10/18 06/12/19 History warfarin 2.5 mg PO SUMOWEFR 10/10/18 06/12/19 History ascorbic acid (vitamin C) 1,000 mg PO DAILY 01/27/19 06/12/19 History colestipol 2 g PO BID 01/27/19 06/12/19 History cranberry 500 mg PO DAILY 01/27/19 06/12/19 History dicyclomine 10 mg PO BID PRN 01/27/19 06/12/19 History rosuvastatin 20 mg PO DAILY 01/27/19 06/12/19 History Lactobacillus acidophilus 100 mg PO TIDM 06/12/19 06/12/19 History [Acidophilus] conjugated estrogens [Premarin] See Rx Instructions .ROUTE .COMPLEX 06/12/19 06/12/19 History magnesium oxide 400 mg PO BID 06/12/19 06/12/19 History potassium chloride 20 meq PO DAILY 06/12/19 06/12/19 History pregabalin 100 mg PO TID 06/12/19 06/12/19 History Allergies Allergy/AdvReac Type Severity Reaction Status Date / Time Bactrim Allergy Unknown . Verified 10/16/16 13:02 doxycycline Allergy Unknown . Verified 06/12/19 16:34 sulfamethoxazole Allergy Unknown . Verified 06/12/19 16:34 trimethoprim Allergy Unknown . Verified 06/12/19 16:34 Past Med/Surg History Medical History Chronic constipation (Chronic) Chronic pain (Chronic) CKD (chronic kidney disease), stage III (Chronic) CVA (cerebral vascular accident) (Chronic) Dyslipidemia (Chronic) Hypertension (Chronic) Hypothyroidism (Chronic) BIRDIE (obstructive sleep apnea) (Chronic) Paroxysmal SVT (supraventricular tachycardia) (Chronic) RLS (restless legs syndrome) (Chronic) Surgical History H/O hemorrhoidectomy (Chronic) H/O mitral valve replacement with mechanical valve (Chronic) H/O neck surgery (Chronic) H/O oophorectomy (Chronic) History of cholecystectomy (Chronic) History of total right hip replacement (Chronic) Hx of aortic valve replacement, mechanical (Chronic) S/P lumbar fusion (Chronic) S/P repair of paraesophageal hernia (Chronic) S/P total abdominal hysterectomy (Chronic) Family History Father Heart disease Mother Stroke Social History Preferred Language: Italian Communication Ability: Impaired 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 and A total of 10 systems reviewed and were otherwise negative Physical Exam Vital Signs Vital Signs - 24 hr 06/12/19 14:30 06/12/19 14:34 06/12/19 14:43 Temperature 36.9 C Temperature Source Oral Pulse Rate - Lying Pulse Rate - Sitting Pulse Rate - Standing Pulse Rate 60 59 L 60 Pulse Rate from SpO2 Sensor 60 59 L Respiratory Rate 20 14 12 Respiratory Effort / Characteristics Non-Labored Spontaneous Respiratory Depth Normal Respiratory Pattern Regular Blood Pressure - Lying Blood Pressure - Sitting Blood Pressure- Standing Blood Pressure 171/75 H 171/75 H Blood Pressure Mean 107 92 Pulse Oximetry 96 95 96 Oxygen Delivery Method Room Air Sepsis Recent Fever Within 48 Hours No Sepsis New/Unexplained Change in Mental Status No Sepsis Action Taken by Nursing No Action Required 06/12/19 15:00 06/12/19 15:30 06/12/19 15:40 Temperature Temperature Source Pulse Rate - Lying Pulse Rate - Sitting Pulse Rate - Standing Pulse Rate 55 L 55 L 55 L Pulse Rate from SpO2 Sensor 55 L 55 L 55 L Respiratory Rate 12 11 L 13 Respiratory Effort / Characteristics Respiratory Depth Respiratory Pattern Blood Pressure - Lying Blood Pressure - Sitting Blood Pressure- Standing Blood Pressure 163/65 H Blood Pressure Mean 82 Pulse Oximetry 95 96 95 Oxygen Delivery Method Sepsis Recent Fever Within 48 Hours Sepsis New/Unexplained Change in Mental Status Sepsis Action Taken by Nursing 06/12/19 15:47 06/12/19 15:48 06/12/19 16:00 Temperature Temperature Source Pulse Rate - Lying Pulse Rate - Sitting Pulse Rate - Standing Pulse Rate 55 L 55 L 58 L Pulse Rate from SpO2 Sensor 55 L 55 L 58 L Respiratory Rate 12 14 14 Respiratory Effort / Characteristics Respiratory Depth Respiratory Pattern Blood Pressure - Lying Blood Pressure - Sitting Blood Pressure- Standing Blood Pressure 154/60 H 145/76 H Blood Pressure Mean 84 94 Pulse Oximetry 96 96 94 Oxygen Delivery Method Room Air Sepsis Recent Fever Within 48 Hours Sepsis New/Unexplained Change in Mental Status Sepsis Action Taken by Nursing 06/12/19 16:10 06/12/19 16:30 06/12/19 17:00 Temperature Temperature Source Pulse Rate - Lying Pulse Rate - Sitting Pulse Rate - Standing Pulse Rate 57 L 54 L Pulse Rate from SpO2 Sensor 54 L Respiratory Rate 13 12 Respiratory Effort / Characteristics Respiratory Depth Respiratory Pattern Blood Pressure - Lying Blood Pressure - Sitting Blood Pressure- Standing Blood Pressure 146/55 H 129/56 L 152/60 H Blood Pressure Mean 72 71 72 Pulse Oximetry 96 Oxygen Delivery Method Sepsis Recent Fever Within 48 Hours Sepsis New/Unexplained Change in Mental Status Sepsis Action Taken by Nursing 06/12/19 17:30 06/12/19 17:54 06/12/19 17:55 Temperature Temperature Source Pulse Rate - Lying 55 L Pulse Rate - Sitting 60 Pulse Rate - Standing 56 L Pulse Rate 53 L 56 L Pulse Rate from SpO2 Sensor 53 L Respiratory Rate 13 14 Respiratory Effort / Characteristics Respiratory Depth Respiratory Pattern Blood Pressure - Lying 160/62 H Blood Pressure - Sitting 161/63 H Blood Pressure- Standing 162/57 H Blood Pressure 142/61 H 160/62 H Blood Pressure Mean 83 82 Pulse Oximetry 98 Oxygen Delivery Method Sepsis Recent Fever Within 48 Hours Sepsis New/Unexplained Change in Mental Status Sepsis Action Taken by Nursing 06/12/19 17:56 06/12/19 18:00 Temperature Temperature Source Pulse Rate - Lying Pulse Rate - Sitting Pulse Rate - Standing Pulse Rate 57 L 56 L Pulse Rate from SpO2 Sensor 56 L Respiratory Rate 13 15 Respiratory Effort / Characteristics Respiratory Depth Respiratory Pattern Blood Pressure - Lying Blood Pressure - Sitting Blood Pressure- Standing Blood Pressure 162/57 H 152/57 H Blood Pressure Mean 73 66 Pulse Oximetry 97 Oxygen Delivery Method Sepsis Recent Fever Within 48 Hours Sepsis New/Unexplained Change in Mental Status Sepsis Action Taken by Nursing GENERAL: Awake, alert, fatigued-appearing HENT: Normocephalic, atraumatic. EYES: Normal conjunctiva. Sclera non-icteric. PERRL. NECK: Supple. No nuchal rigidity. RESPIRATORY: Clear to auscultation. No wheezes. Normal respiratory effort. CARDIAC: Bradycardic rate. Normal rhythm. Extremities warm and well perfused. GI: Soft, non-distended. No tenderness to palpation. No rebound or guarding. RECTAL: Deferred. MUSCULOSKELETAL: Atraumatic. Chest examination reveals no tenderness. LOWER EXTREMITIES: Calves are equal size bilaterally and non-tender. No edema NEURO: Normal sensorium. No sensory or motor deficits noted. No facial droop. SKIN: Warm and dry. No rash or jaundice noted. Course Course 153: The patient was evaluated in room C12B. A complete history and physical exam was performed. 1729: I re-checked the patient. The patient was dizzy and unsteady while walking to the bathroom. 5: I reviewed the patient's case with ELAINE Bermeo for [facility] Hospitalist. She will evaluate the patient for further management. Administered Medications Discontinued Medications Sodium Chloride (Nss) 500 mls @ 999 mls/hr IV .Q31M OLGA Stop: 06/12/19 16:15 Last Infusion: 06/12/19 17:26 Dose: 0 mls/hr Documented by: [id number] Admin: 06/12/19 16:37 Dose: 999 mls/hr Documented by: [id number] Medical Decision Making Differential Diagnosis Differential Diagnosis: includes but is not limited to dehydration, stroke, anemia, hypoglycemia, hyponatremia, hypernatremia, urinary tract infection, pneumonia, bronchitis, sepsis, gastroenteritis, additional abdominal pathology, metabolic abnormalities and infections. Medical Records Attestation: I reviewed the patient's medical records. Home Medications Current Medication List: was personally reviewed by me Laboratory Data Attestation: I reviewed the patient's lab results. Result diagrams: 06/12/19 16:03 06/12/19 18:35 Lab Results 06/12/19 06/12/19 06/12/19 Range/Units 16:03 16:03 16:03 WBC 9.23 (4.8-10.8) K/uL RBC 4.04 L (4.2-5.4) M/uL Hgb 12.3 (12.0-16.0) g/dL Hct 37.7 (37-47) % MCV 93.3 (80-100) fL MCH 30.4 (25-34) pg MCHC 32.6 (32-36) g/dL RDW Std Deviation 47.5 H (36.4-46.3) fL RDW Coeff of Gisele 13.9 (11.5-14.5) % Plt Count 152 (130-400) K/uL MPV 11.4 H (7.4-10.4) fL Immature Gran % (Auto) 0.2 % Neut % (Auto) 76.3 % Lymph % (Auto) 13.1 % [place] % (Auto) 8.7 % Eos % (Auto) 1.5 % Baso % (Auto) 0.2 % Immature Gran # (Auto) 0.02 (0.00-0.02) K/uL Neut # (Auto) 7.04 H (1.4-6.5) K/uL Lymph # (Auto) 1.21 (1.2-3.4) K/uL [place] # (Auto) 0.80 H (0.11-0.59) K/uL Eos # (Auto) 0.14 (0-0.5) K/uL Baso # (Auto) 0.02 (0-0.2) K/uL PT 26.0 H (9.0-12.0) Seconds INR 2.7 H (0.9-1.1) Sodium 142 (136-145) mmol/L Potassium (3.5-5.1) mmol/L Chloride 108 H (98-107) mmol/L Carbon Dioxide 31 (21-32) mmol/L Anion Gap 2.0 L (3-11) BUN 20 H (7-18) mg/dl Creatinine 1.22 H (0.6-1.2) mg/dl Est Cr Clr Drug Dosing Not Reportable Est GFR ( Amer) 52.3 Est GFR (Non-Af Amer) 45.2 BUN/Creatinine Ratio 16.0 (10-20) Glucose 83 (70-99) mg/dl Calcium 9.0 (8.5-10.1) mg/dl Magnesium (1.8-2.4) mg/dl Total Bilirubin 0.8 (0.2-1) mg/dl AST (15-37) U/L ALT 14 (12-78) U/L Alkaline Phosphatase 113 (45-117) U/L Troponin I < 0.015 (0-0.045) ng/ml Total Protein 7.3 (6.4-8.2) gm/dl Albumin 3.5 (3.4-5.0) gm/dl Globulin 3.8 (2.5-4.0) gm/dl Albumin/Globulin Ratio 0.9 (0.9-2) TSH 1.380 (0.300-4.500) uIu/ml Urine Color Urine Appearance (Clear) Urine pH (4.5-7.5) Ur Specific [place] (1.000-1.030) Urine Protein (Negative) Urine Glucose (UA) (Negative) Urine Ketones (Negative) Urine Blood (Negative) Urine Nitrite (Negative) Urine Bilirubin (Negative) Urine Urobilinogen (Negative) Ur Leukocyte Esterase (Negative) Urine WBC (Auto) (0-5) /hpf Urine RBC (Auto) (0-4) /hpf U Hyaline Cast (Auto) (0-5) /lpf U Epithel Cells (Auto) (0-5) /lpf Urine Bacteria (Auto) (Negative) 06/12/19 Range/Units 16:35 WBC (4.8-10.8) K/uL RBC (4.2-5.4) M/uL Hgb (12.0-16.0) g/dL Hct (37-47) % MCV (80-100) fL MCH (25-34) pg MCHC (32-36) g/dL RDW Std Deviation (36.4-46.3) fL RDW Coeff of Gisele (11.5-14.5) % Plt Count (130-400) K/uL MPV (7.4-10.4) fL Immature Gran % (Auto) % Neut % (Auto) % Lymph % (Auto) % [place] % (Auto) % Eos % (Auto) % Baso % (Auto) % Immature Gran # (Auto) (0.00-0.02) K/uL Neut # (Auto) (1.4-6.5) K/uL Lymph # (Auto) (1.2-3.4) K/uL [place] # (Auto) (0.11-0.59) K/uL Eos # (Auto) (0-0.5) K/uL Baso # (Auto) (0-0.2) K/uL PT (9.0-12.0) Seconds INR (0.9-1.1) Sodium (136-145) mmol/L Potassium (3.5-5.1) mmol/L Chloride (98-107) mmol/L Carbon Dioxide (21-32) mmol/L Anion Gap (3-11) BUN (7-18) mg/dl Creatinine (0.6-1.2) mg/dl Est Cr Clr Drug Dosing Est GFR ( Amer) Est GFR (Non-Af Amer) BUN/Creatinine Ratio (10-20) Glucose (70-99) mg/dl Calcium (8.5-10.1) mg/dl Magnesium (1.8-2.4) mg/dl Total Bilirubin (0.2-1) mg/dl AST (15-37) U/L ALT (12-78) U/L Alkaline Phosphatase (45-117) U/L Troponin I (0-0.045) ng/ml Total Protein (6.4-8.2) gm/dl Albumin (3.4-5.0) gm/dl Globulin (2.5-4.0) gm/dl Albumin/Globulin Ratio (0.9-2) TSH (0.300-4.500) uIu/ml Urine Color Yellow Urine Appearance Clear (Clear) Urine pH 8.0 H (4.5-7.5) Ur Specific [place] 1.014 (1.000-1.030) Urine Protein Negative (Negative) Urine Glucose (UA) Negative (Negative) Urine Ketones Negative (Negative) Urine Blood Negative (Negative) Urine Nitrite Negative (Negative) Urine Bilirubin Negative (Negative) Urine Urobilinogen Negative (Negative) Ur Leukocyte Esterase Negative (Negative) Urine WBC (Auto) 1-5 (0-5) /hpf Urine RBC (Auto) 0-4 (0-4) /hpf U Hyaline Cast (Auto) 0 (0-5) /lpf U Epithel Cells (Auto) 10-20 H (0-5) /lpf Urine Bacteria (Auto) Negative (Negative) Imaging Data Radiologist's Impression: Radiology results as stated below per my review and the radiologist's interpretation: SINGLE VIEW CHEST CLINICAL HISTORY: Generalized weakness. FINDINGS: An AP, portable, upright chest radiograph is compared to study dated 01/27/2019. Correlation is made with chest CT dated 12/12/2015. The examination is degraded by portable technique and apical lordotic positioning. The patient is status post midline sternotomy and cardiac valve surgery. The heart is enlarged noting atherosclerotic calcification of the thoracic aorta. The pulmonary vasculature is noncongested. There is bibasilar scarring/atelectasis. No airspace consolidation or large pleural effusion is identified. No pneumothorax is seen. The skeletal structures are osteopenic. The bony thorax is grossly intact. IMPRESSION: Cardiomegaly with no acute cardiopulmonary abnormality. ACT 112: Negative or not required by law. Electronically signed by: Amaury Mcgovern M.D. 06/12/2019 4:[address] head/brain wo con CLINICAL HISTORY: 69 years-old Female with dizzy, weakness. Acute dizziness with weakness TECHNIQUE: Multiple axial CT images of the head were obtained without contrast. A dose lowering technique was utilized adhering to the principles of ALARA. CT DOSE: 537.48 mGy.cm COMPARISON: Head CT 04/29/2019 FINDINGS: No acute intracranial hemorrhage, midline shift, intracranial mass, hydrocephalus, territorial ischemia or abnormal extra-axial collection. Minimal patchy white matter hypodensities suggest chronic microvascular ischemic disease. Small remote lacunar infarction of the left thalamus, unchanged. The calvarium is intact. The paranasal sinuses, mastoid air cells, and middle ear cavities are clear. IMPRESSION: No acute intracranial abnormality. ACT 112: Negative or not required by law. The above report was generated using voice recognition software. It may contain grammatical, syntax or spelling errors. Electronically signed by: Cm Clinton M.D. 06/12/2019 4:17 PM ECG Data Attestation: I personally reviewed and interpreted this ECG as follows: Indication: + weakness Rate (beats per minute): 54 Rhythm: + sinus bradycardia ECG ST segments: + T-wave inversions (V1 and V2); no ST depression and no ST elevation ECG Findings: no PVCs Comparison ECG Date: from (04/29) Change: no significant change Blood Pressure Blood Pressure Findings: Elevated blood pressure Blood Pressure Disposition: further management by hospitalist KELSIE Narrative Patient is a 69-year-old female with a past medical history including UTI, CKD, RLS, CVA, hypertension, cardiac valve replacement on Coumadin presenting today reports of weakness over the last day or so fatigue today and when trying to ambulate felt very dizzy like things were spinning. Sat down and symptoms improved. History of similar in the past and has had multiple UTIs in the past. Currently denies significant urinary symptoms. Denies abdominal or chest pain. Denies a headache. Denies any new numbness or weakening. In the past has had significant issues with similar presentations although usually with more significant aphasia or garbled speech. This was not a significant part of today 's finding. No fevers or again trauma or falls reported. EKG, chest x-ray, CT of the head, basic labs and urinalysis were ordered. Low suspicion of stroke given that she has no significant neurological deficit this time just feels somewhat weak. EKG without evidence of significant arrhythmia. Basic labs with significant finding. Urinalysis is concerning for possible UTI. CT without evidence of intracranial bleed or stroke. Reviewed radiology report in the image of the chest x-ray and agree that there is just some mild cardiomegaly. INR therapeutic. Kidney function at baseline. No evidence of troponin elevation or significant hepatic dysfunction. Urinalysis without evidence of infection. Patient has had prior stroke work-up and seizure work-up at [facility] in the past and these were negative. Wonder some of the dizziness may have been orthostatic in nature as she did become more symptomatic when she had to get up and go to the bathroom here. Required assist. Discussed with him options at this point. Again UA is negative. Discussed maybe using some compression stockings to help with may be orthostasis but do of concern sending her home with anticoagulation during given her fall risk. We will ask the [facility] Hospitalist evaluate for observation overnight for further evaluation and management. Impression & Plan Dizziness, Weakness Discharge Plan Visit Data *Final* Discharge Date/Time: 06/12/19 19:02 Chief Complaint: Illness Stated Complaint: weakness ED Provider: Alberto Garcia Discharge Problem: Dizziness, Weakness Patient Disposition: Admitted As Inpatient Discharge Instructions Interventions: ED Discharge Assessment Last Done: 06/12/19 19:02 The taeibe's documentation has been prepared under my direction and personally reviewed by me in its entirety. I confirm that the note above accurately reflects all work, treatment, procedures, and medical decision making performed by me.
[2019-06-12] MEDS: MAGNESIUM OXIDE 400 MG TAB PO SCH (21:51)
[2019-06-12] MEDS: PREGABALIN 100 MG CAP PO SCH (22:05)
[2019-06-12] MEDS: METOPROLOL SUCC 25MG EXT REL TAB PO SCH (22:08)
[2019-06-13] MEDS: LEVOTHYROXINE SODIUM 50 MCG TABLET PO SCH (06:28)
[2019-06-13 06:48] LABS: Hematocrit (blood only) 35.7 % (37-47); Hemoglobin 11.4 g/dL (12.0-16.0); Mean Corpuscular Hemoglobin 30.2 pg (25-34); Mean Corpuscular Hgb Conc 31.9 g/dL (32-36); Mean Corpuscular Volume 94.4 fL (80-100); Mean Platelet Volume 10.6 fL (7.4-10.4); Platelet Count 137 K/uL (130-400); RDW Coefficient of Variation 13.9 % (11.5-14.5); RDW Standard Deviation 47.5 fL (36.4-46.3); Red Blood Count 3.78 M/uL (4.2-5.4); White Blood Count 7.18 K/uL (4.8-10.8)
[2019-06-13 06:56] LABS: INR 2.5 (0.9-1.1); Prothrombin Time 24.4 Seconds (9.0-12.0)
[2019-06-13 07:21] LABS: BUN Creatinine Ratio 17.7 (10-20); Blood Urea Nitrogen 22 mg/dl (7-18); Calcium 8.5 mg/dl (8.5-10.1); Carbon Dioxide 26 mmol/L (21-32); Chloride 110 mmol/L (98-107); Est GFR (African American) 50.3; Est GFR (Non-African American) 43.4; Glucose 77 mg/dl (70-99); Potassium 3.8 mmol/L (3.5-5.1); Sodium 140 mmol/L (136-145)
[2019-06-13] MEDS: METOPROLOL SUCC 25MG EXT REL TAB PO SCH ×2 (08:20→20:32)
[2019-06-13] MEDS: CITALOPRAM 20 MG TAB PO SCH (08:21)
[2019-06-13] MEDS: ROSUVASTATIN CALCIUM 20 MG TAB PO SCH (08:21)
[2019-06-13] MEDS: MAGNESIUM OXIDE 400 MG TAB PO SCH ×2 (08:21→20:29)
[2019-06-13] MEDS: POTASSIUM CHLORIDE 20 MEQ TABCR PO SCH (08:21)
[2019-06-13] MEDS: LACTOBACILLUS ACIDOPHILUS (FLORANEX) TAB PO SCH ×3 (08:21→17:06)
[2019-06-13] MEDS: ASCORBIC ACID 500 MG TAB PO SCH (08:21)
[2019-06-13] MEDS: PREGABALIN 100 MG CAP PO SCH ×3 (08:26→20:29)
[2019-06-13] MEDS: COLESTIPOL HCL 1 GM TAB PO SCH ×2 (10:40→17:08)
[2019-06-13] MEDS ORDERED: WARFARIN SOD 1.25 MG TAB PO SCH (16:00)
--- NOTE | 2019-06-13 16:07 | Hospitalist Progress Note ---
Date of Service June 13, 2019 Assessment & Plan (1) Dizziness: Will secondary to dehydration, No evidence of CVA in the CT head, neurological exam, no focal deficit, patient is alert awake oriented, normal strength and function Symptom resolved, after giving IV fluids -Patient presenting from home with reports of dizziness after standing and ambulating -Orthostatic BPs checked and negative -No evidence of infection, UA negative, chest x-ray shows no evidence of acute cardiopulmonary infection, no cough no fever or chills Echo ordered to assess for LV function, cardiac follow-up Continue telemetry monitoring (2) Hypertension: BP stable, no orthostatic change noted (3) Paroxysmal SVT (supraventricular tachycardia): Heart rate remains controlled in 60s90s On metoprolol (4) Hx of aortic valve replacement, mechanical: On Coumadin INR therapeutic Echo ordered to assess valve function (5) H/O mitral valve replacement with mechanical valve: History of rheumatic valve disease, status post mitral valve replacement -Anticoagulant Coumadin, INR 2.7 therapeutic Ordered for echo to assess for valve function (6) History of CVA (cerebrovascular accident): -Continue aspirin and statin (7) Chronic pain: -Continue Lyrica (8) Hypothyroidism: -Continue levothyroxine (9) DVT prophylaxis: -Anticoagulated on Coumadin with therapeutic INR CODE STATUS: Full code Disposition: Plan to discharge patient home tomorrow Subjective Patient denies of any further episode of dizzy spell or lightheadedness, no headache, No cough no shortness of breath no fever or chills Review of Systems Review of Systems: All systems reviewed & are unremarkable except as noted in HPI & below Physical Exam Constitutional: WD/WN, vitals as above Eyes: PERRL, conjunctivae normal, anicteric sclerae ENMT: external ear and nose normal, oropharynx normal Respiratory: normal respiratory effort, lungs clear to auscultation Cardiovascular: Rate/Rhythm: regular rate and regular rhythm Vessels: normal peripheral pulses Extremities: no edema Gastrointestinal (Abdomen): normal bowel sounds, soft, nontender, no hepatosplenomegaly Musculoskeletal: no cyanosis or clubbing, extremities motor strength 5/5 Skin: no rashes, warm and dry Neurologic: PERRL, EOMI, accommodation nl, no face palsy, no dysarthria moves all extremities and awake; no focal motor deficits and not confused Motor/Sensory: no pronator drift Coordination: normal [id number] test and normal [id number] test Psychiatric: A+Ox3, euthymic affect Results & Data Vital Signs (Past 12 Hours) Vital Signs Temp Pulse Resp BP Pulse Ox 06/13/19 15:19 36.9 C 57 L 16 133/68 92 06/13/19 11:56 36.9 C 54 L 17 124/68 97 06/13/19 07:22 36.2 C L 96 H 18 116/81 95 (1) Hypertension Hypertension type: unspecified Qualified Code(s): I10 - Essential (primary) hypertension
[2019-06-14] MEDS: LEVOTHYROXINE SODIUM 50 MCG TABLET PO SCH (06:21)
[2019-06-14] MEDS: MAGNESIUM OXIDE 400 MG TAB PO SCH (08:06)
[2019-06-14] MEDS: METOPROLOL SUCC 25MG EXT REL TAB PO SCH (08:06)
[2019-06-14] MEDS: LACTOBACILLUS ACIDOPHILUS (FLORANEX) TAB PO SCH (08:06)
[2019-06-14] MEDS: ASCORBIC ACID 500 MG TAB PO SCH (08:07)
[2019-06-14] MEDS: POTASSIUM CHLORIDE 20 MEQ TABCR PO SCH (08:07)
[2019-06-14] MEDS: CITALOPRAM 20 MG TAB PO SCH (08:07)
[2019-06-14] MEDS: ROSUVASTATIN CALCIUM 20 MG TAB PO SCH (08:07)
[2019-06-14] MEDS: PREGABALIN 100 MG CAP PO SCH (08:10)
--- NOTE | 2019-06-14 11:18 | Discharge Summary ---
Date of Service June 14, 2019 Admission HPI Per Admitting Provider 69-year-old female who presents the ED for evaluation of dizziness. Patient reports that this afternoon, she was walking to the bathroom when she had sudden onset of dizziness. Patient was then brought to the ED for further evaluation. Patient denies any associated unilateral numbness, tingling, weakness. No aphasia, facial droop, drooling. Denies headache and blurred vision. Symptoms resolved with the patient arrived to the ED however during ambulation trial, patient required assistance of 2 people due to recurrent dizziness. When she returned to bed, dizziness resolved. Patient reports she otherwise has been feeling well recently. No chest pain or shortness of breath. Denies abdominal pain, nausea, vomiting, diarrhea. No urinary symptoms. In the ED, head CT is negative for acute findings. Labs are unremarkable. Patient was given IVF. Principal Diagnosis Dizzy spell: Resolved, weakness, dehydration, resolved Discharge Exam Constitutional WD/WN, vitals as above Eyes PERRL, conjunctivae normal, anicteric sclerae ENMT external ear and nose normal, oropharynx normal Respiratory normal respiratory effort, lungs clear to auscultation Cardiovascular Rate/Rhythm: regular rate and regular rhythm Vessels: normal peripheral pulses Extremities: no edema Gastrointestinal (Abdomen) normal bowel sounds, soft, nontender, no hepatosplenomegaly Musculoskeletal no cyanosis or clubbing, extremities motor strength 5/5 Skin no rashes, warm and dry Neurologic PERRL, EOMI, accommodation nl, no face palsy, no dysarthria moves all extremities and awake; no focal motor deficits and not confused Motor/Sensory: no pronator drift Coordination: normal [id number] test and normal [id number] test Psychiatric A+Ox3, euthymic affect Discharge Data Allergies Allergy/AdvReac Type Severity Reaction Status Date / Time Bactrim Allergy Unknown . Verified 10/16/16 13:02 doxycycline Allergy Unknown . Verified 06/12/19 16:34 sulfamethoxazole Allergy Unknown . Verified 06/12/19 16:34 trimethoprim Allergy Unknown . Verified 06/12/19 16:34 Consultations 06/12/19 17:47 ED Decision to Admit Stat 06/12/19 20:47 Consult Case Management - Discharge Planning Routine Ordered Studies 06/12/19 15:40 CT head/brain wo con Stat Hospital Course (1) Dizziness: Will secondary to dehydration, No evidence of CVA in the CT head, neurological exam, no focal deficit, patient is alert awake oriented, normal strength and function Given IV fluids, No recurrence of symptoms noted in last 24 hours, no arrhythmia noted on telemetry -Patient presenting from home with reports of dizziness after standing and ambulating -Orthostatic BPs checked and negative -No evidence of infection, UA negative, chest x-ray shows no evidence of acute cardiopulmonary infection, no cough no fever or chills Echo 06/13/19: Ejection fraction 55-60% there is bileaflet [place] aortic mechanical prosthesis Gradient is normal for this prosthetic aortic valve There is a bileaflet [place] mechanical prosthesis mitral valve Gradient is normal Mild tricuspid regurgitation Left to right shunt across the interatrial septum suggesting a possible premium ASD which is not a new finding (2) Hypertension: BP stable, no orthostatic change noted (3) Paroxysmal SVT (supraventricular tachycardia): Heart rate remains controlled in 60s90s On metoprolol (4) Hx of aortic valve replacement, mechanical: On Coumadin INR therapeutic Echo ordered to assess valve function (5) H/O mitral valve replacement with mechanical valve: History of rheumatic valve disease, status post mitral valve replacement -Anticoagulant Coumadin, INR 2.5 reading therapeutic range Echo shows normal gradient across the prosthetic/mechanical aortic and mitral valve (6) History of CVA (cerebrovascular accident): -Continue aspirin and statin (7) Chronic pain: -Continue Lyrica (8) Hypothyroidism: -Continue levothyroxine (9) DVT prophylaxis: -Anticoagulated on Coumadin with therapeutic INR CODE STATUS: Full code Disposition: Stable to be discharged home today Total Time Total Time Spent Total Time Spent (In Minutes): Approximately 40 minutes Total Time Includes: Examination of the Patient, Discharge Planning and Medication Reconciliation Discharge Plan Discharge Items Patient Disposition: Home - Self-Care Reason For Visit: DIZZINESS,AMBULATORY DYSFUNCTION Discharge Diagnosis: Dizzy spell: Resolved, weakness, dehydration, resolved Activity: Resume your previous activity Non-emergency contact: Primary Care Provider Call non-emergency contact if: you have any medication questions Follow-up/Referrals: Gomez Bass MD [Primary Care Provider] - (Hospital follow-up with Dr. Bass in 1 week, please call office to schedule an appointment) Diet: Heart Healthy Addtl Attending Provider Instructions: HOSPITAL FOLLOW UP WITH FAMILY PHYSICIAN IN A WEEK Pending Studies at Discharge: No Stand-Alone Forms: My [facility], Smoking Cessation Medications and DC Order Prescriptions: Continued citalopram 20 mg tablet 20 mg PO QAM RF: 0 levothyroxine 50 mcg tablet 50 mcg PO QAM RF: 0 metoprolol succinate 50 mg Tablet Extended Release 24 Hr 25 mg PO BID RF: 0 Lactobacillus acidophilus [Acidophilus] Capsule 100 mg PO TIDM RF: 0 pregabalin 100 mg capsule 100 mg PO TID RF: 0 potassium chloride 20 mEq tablet,ER particles/crystals 20 meq PO DAILY RF: 0 Premarin 0.625 mg/gram cream See Rx Instructions .ROUTE .COMPLEX RF: 0 magnesium oxide 400 mg capsule 400 mg PO BID RF: 0 warfarin 2.5 mg tablet 1.25 mg PO TUTHSA RF: 0 warfarin 2.5 mg tablet 2.5 mg PO SUMOWEFR RF: 0 colestipol 1 gram tablet 2 g PO BID RF: 0 rosuvastatin 20 mg tablet 20 mg PO DAILY RF: 0 ascorbic acid (vitamin C) 1,000 mg Tablet 1,000 mg PO DAILY RF: 0 dicyclomine 10 mg capsule 10 mg PO BID PRN (Reason: Abdominal Pain) RF: 0 cranberry 500 mg Capsule 500 mg PO DAILY RF: 0 Discharge Orders: Discharge Order (Routine); Ordered 06/14/19 Ordered By: Terri Ram Admission Data Admit Date/Time: 06/12/19 18:14 Attending Provider: Terri Ram Admit Provider: Terri Ram Primary Care Provider: Gomez Bass Other Providers: Terri Ram Other Interventions: Discharge Summary Assessment (RN) Last Done: 06/14/19 11:07 DC Date/Time DO NOT enter until pt leaves facility: 06/14/19 11:37
[2019-06-14] MEDS: COLESTIPOL HCL 1 GM TAB PO SCH (11:25)
== END 2019-06-14 11:37 | disposition home or self-care (01) ==
LOC: ED 14:30 → 2N 14:30

== ENCOUNTER 2020-05-23 12:03 | Observation (INO) ==
--- NOTE | 2020-05-23 12:11 | Emergency Department Note ---
Impression & Plan Fall, Ambulatory dysfunction, Effusion of knee joint right, Anticoagulated ED Provider Note NAME: CHEYANNE JETER AGE: 70 SEX: F : 1950 ARRIVES VIA: Ambulance INFORMANT: Patient, ED PROVIDER(S): Jf Romero MD Chief Complaint: Fall, knee pain HPI: Patient does present with concern for fall. The patient reportedly was walking through her garage tripped over something and fell forward striking her right knee. The patient does have pain that she describes as sharp and worse with movement or range of motion. The patient did receive 100 mcg of fentanyl in route. The patient was placed on some nasal cannula as the patient was 88% upon arrival. Patient denies striking her head and denies any head or neck pain. The patient has no LOC and no amnesia to the event. Patient denies any fevers, chills, chest pains, shortness of breath, nausea or vomiting. The patient does take Coumadin for history of valve repair. ROS: See HPI for pertinent positives and negatives. A total of 10 systems were reviewed and otherwise negative. Past medical history: See below Surgical history: See below Social history: See below Physical Exam: GENERAL: Wearing glasses and a mask. NAD, non-toxic. EYE EXAM: Normal conjunctiva. PERRL, no anisocoria and EOM's grossly intact w/o pain. Head: Normocephalic atraumatic Chest: No obvious flail chest crepitus or TTP. NECK: Supple, no nuchal rigidity, no adenopathy, non-tender. No signs of meningismus. LUNGS: Clear to auscultation. Normal chest wall mechanics. HEART: NSR, no MRG. ABDOMEN: Abdomen soft, non-tender, normo-active bowel sounds, no masses, no rebound or guarding. BACK: No CVA TTP. SKIN: No rashes and no bruising. UPPER EXTREMITIES: Upper extremities are grossly normal. No pain to palpation or TTP. LOWER EXTREMITIES: Prepatellar knee effusion with decreased range of motion secondary to pain. Mild mid thigh pain. No obvious deformities or leg length discrepancies. NEURO EXAM: A&O x3, cranial nerves II-XII grossly intact, normal speech, moves all 4 extremities on command w/o issue with exception of right lower extremity secondary to pain. Differential diagnoses: Fracture, dislocation, contusion, intra-abdominal, pneumothorax, intrathoracic, intracranial, neurologic, compartment syndrome, rhabdomyolysis, as well as other pathologies. Course: Patient was seen and evaluated the bedside. Full history physical exam was performed. EKG: Indication: Fall Normal sinus rhythm, rate of 61, normal W[place] and QRS, normal axis, no ST changes. Nonspecific T wave and prolonged QT. No significant change from comparison EKG June 12, 2019. Imaging Studies: Radiology results as stated below per my review in the radiologist's inte rpretation: XR pelvis 1-2V routine HISTORY: 70 years-old Female s/p fall on coumadin acute pelvic pain status post fall COMPARISON: Right femur radiographs of same day TECHNIQUE: AP view the pelvis FINDINGS: Right hip total joint arthroplasty appears unremarkable. Mild left hip osteoarthritis. No acute fracture or dislocation. Surgical clips project of the left hemipelvis. Postoperative changes of the lower lumbar spine. Unremarkable soft tissues. IMPRESSION: No acute fracture or dislocation. ACT 112: Negative or not required by law. The above report was generated using voice recognition software. It may contain grammatical, syntax or spelling errors. Electronically signed by: Cm Clinton M.D. 05/23/2020 1:09 PM Dictated: 05/23/20 130 Transcribed: 05/23/20 130 XR knee RT 3V CLINICAL HISTORY: effusion and pain, s/p fall on coumadin COMPARISON: None. DISCUSSION: No acute fractures are visualized. There is prominent prepatellar soft tissue edema. There are no dislocations IMPRESSION: 1. No acute fractures 2. Prominent prepatellar soft tissue swelling ACT 112: Negative or not required by law. Electronically signed by: Bob Gonzalez M.D. 05/23/2020 1:06 PM Dictated: 05/23/20 1306 Transcribed: 05/23/20 130 XR femur RT 2V routine CLINICAL HISTORY: Right femur pain status post trauma COMPARISON: None. DISCUSSION: There is a total right hip arthroplasty. There are no acute fractures. There is prominent prepatellar soft tissue swelling. IMPRESSION: 1. Postsurgical changes 2. No acute fractures 3. Prepatellar soft tissue swelling ACT 112: Negative or not required by law. Electronically signed by: Bob Gonzalez M.D. 05/23/2020 1:07 PM Dictated: 05/23/20 1307 Transcribed: 05/23/[address] head/brain wo con CLINICAL HISTORY: 70 years-old Female with s/p fall on coumadin. Acute head injury status post fall TECHNIQUE: Multiple axial CT images of the head were obtained without contrast. A dose lowering technique was utilized adhering to the principles of ALARA. CT DOSE: 638.56 mGycm COMPARISON: CT cervical spine of same day, head CT 06/12/2019. FINDINGS: No acute intracranial hemorrhage, midline shift, intracranial mass, hydrocephalus, territorial ischemia or abnormal extra-axial collection. Mild patchy white matter hypodensities suggest chronic microvascular ischemic disease. Small remote lacunar infarction of the left thalamus, unchanged. Small remote lacunar infarct of the left cerebellar hemisphere is also stable. The calvarium is intact. Partially imaged new complete opacification of the left maxillary sinus. Remaining paranasal sinuses are clear. Mastoid air cells are clear. Soft tissues and orbits are unremarkable. IMPRESSION: No acute intracranial abnormality or calvarial fracture. ACT 112: Negative or not required by law. The above report was generated using voice recognition software. It may contain grammatical, syntax or spelling errors. Electronically signed by: Cm Clinton M.D. 05/23/2020 3:15 PM Dictated: 05/23/20 1507 Transcribed: 05/23/[address] cervical spine wo con CT DOSE: 388.22 mGycm CLINICAL HISTORY: 70 years-old Female with s/p fall. Acute head and neck injury status post fall COMPARISON: CT head of same day, CTA neck 01/27/2019 TECHNIQUE: Multiple axial CT images of the cervical spine were obtained without contrast. A dose lowering technique was utilized adhering to the principles of ALARA. FINDINGS: Discectomy changes with complete bony fusion involves the C5-C6 vertebral bodies. Mild multilevel disc space narrowing and uncovertebral spurring. There is mild to moderate disc space narrowing at C3-C4. Moderate to severe multilevel facet arthrosis. Predental interval is widened to 5 mm, previously 4 mm. Slight anterior subluxation of the C1 vertebral body in relation to the extradural condyles appears similar to comparison. Developmental complete bony fusion involves the posterior arch of C1. No acute fracture or subluxation. Partially calcified pannus surrounds the odontoid process. Small posterior disc osteophyte complex noted at C4-C5. There is no pneumothorax or prevertebral edema. Calcified plaque of the carotid bulbs. Partially imaged opacified left maxillary sinus. IMPRESSION: 1. No acute fracture or subluxation. 2. Abnormal widening of the predental interval with anterior subluxation of C1 in relation to the occipital condyles appears similar to slightly progressed from the comparison exam and is likely on a degenerative basis. 3. Prior discectomy with fusion at C5-C6. ACT 112: Negative or not required by law. The above report was generated using voice recognition software. It may contain grammatical, syntax or spelling errors. Electronically signed by: Cm Clinton M.D. 05/23/2020 3:24 PM Dictated: 05/23/201515 Transcribed: 05/23/201515 Cardiac monitoring: An order was placed for continuous cardiac monitoring. The monitor shows a rate of 64 with sinus rhythm. MDM: Patient did present with concern for fall. The patient did have CTs of the head and neck along with a knee x-ray and femur. Patient did have blood work completed. The patient has a normal white count mild anemia with hemoglobin 11.5. Platelet count is normal. Patient is therapeutic with an INR 2.8. Patient does have very mild JAMES given last creat of 1.2 today is 1.8. Patient did receive IV fluids. The patient has a negative CT of the head. The patient's plain films also n egative. The patient CT cervical spine did show some abnormal widening of C1 but is likely on a degenerative basis. The patient has not complained of any neck pain or striking her head or neck after the fall. The patient does not have any concern for roundhouse firer/fireman strength or breathing issues. The patient was attempted to ambulate but she had much difficulty. I did speak with the child support case officer in order to discuss the possibility of rehab. Currently Does not have any inpatient beds so I did speak with the on-call hospitalist, Poonam Fuentes PA-C to be admitted under Dr. Medrano [facility]. Past Med/Surg History Medical History Chronic constipation Chronic pain CKD (chronic kidney disease) CKD (chronic kidney disease), stage III CVA (cerebral vascular accident) Dyslipidemia Hypertension Hypothyroidism BIRDIE (obstructive sleep apnea) Paroxysmal SVT (supraventricular tachycardia) RLS (restless legs syndrome) Surgical History H/O hemorrhoidectomy H/O mitral valve replacement with mechanical valve H/O neck surgery H/O oophorectomy History of cholecystectomy History of total right hip replacement Hx of aortic valve replacement, mechanical S/P lumbar fusion S/P repair of paraesophageal hernia S/P total abdominal hysterectomy Family History Father Heart disease Mother Stroke Social History Smoking Status: Never smoker Second Hand Exposure: No; Hx Alcohol Use: No Hx Substance Use: No Preferred Language: Kuwaiti Communication Ability: Effective Emblem Cutter Required: No Beliefs That Will Affect Care: None marital status: Current Living Situation: Spouse current occupational status: retired Feels Safe at Home: Yes Assistive Devices: Glasses Allergies Allergies Allergy/AdvReac Type Severity Reaction Status Date / Time Bactrim Allergy Unknown . Verified 10/16/16 13:02 doxycycline Allergy Unknown . Verified 05/23/20 14:57 sulfamethoxazole Allergy Unknown . Verified 05/23/20 14:57 trimethoprim Allergy Unknown . Verified 05/23/20 14:57 Home Meds Home Medications Medication Instructions Recorded Confirmed citalopram 20 mg PO QAM 07/31/18 05/23/20 levothyroxine 50 mcg PO QAM 07/31/18 05/23/20 warfarin 1.25 mg PO TUTHSA 10/10/18 05/23/20 warfarin 2.5 mg PO SUMOWEFR 10/10/18 05/23/20 ascorbic acid (vitamin C) 1,000 mg PO DAILY 01/27/19 05/23/20 cranberry 500 mg PO DAILY 01/27/19 05/23/20 rosuvastatin 20 mg PO DAILY 01/27/19 05/23/20 Lactobacillus acidophilus 100 mg PO TIDM 06/12/19 05/23/20 [Acidophilus] Results & Data (ED) Vital Signs Vital Signs - 24 hr 05/23/20 12:14 05/23/20 12:29 05/23/20 12:50 Temperature 37.3 C Temperature Source Oral Pulse Rate 66 62 Pulse Rate from SpO2 Sensor 63 Respiratory Rate 20 15 Respiratory Effort / Characteristics Non-Labored Respiratory Depth Normal Blood Pressure 157/67 H Blood Pressure Mean 97 Blood Pressure Position Sitting Pulse Oximetry 88 L 99 100 Oxygen Delivery Method Room Air Nasal Cannula Oxygen Flow Rate 2 Sepsis Recent Fever Within 48 Hours No Sepsis New/Unexplained Change in Mental Status No Sepsis Action Taken by Nursing No Action Required 05/23/20 13:00 05/23/20 13:30 05/23/20 14:00 Temperature Temperature Source Pulse Rate 63 63 60 Pulse Rate from SpO2 Sensor 63 62 58 L Respiratory Rate 16 12 13 Respiratory Effort / Characteristics Respiratory Depth Blood Pressure Blood Pressure Mean Blood Pressure Position Pulse Oximetry 100 96 96 Oxygen Delivery Method Oxygen Flow Rate Sepsis Recent Fever Within 48 Hours Sepsis New/Unexplained Change in Mental Status Sepsis Action Taken by Nursing 05/23/20 14:30 05/23/20 15:05 05/23/20 15:06 Temperature Temperature Source Pulse Rate 69 58 L 59 L Pulse Rate from SpO2 Sensor 59 L 58 L Respiratory Rate 14 13 16 Respiratory Effort / Characteristics Respiratory Depth Blood Pressure 141/64 H Blood Pressure Mean 76 Blood Pressure Position Pulse Oximetry 98 95 96 Oxygen Delivery Method Oxygen Flow Rate Sepsis Recent Fever Within 48 Hours Sepsis New/Unexplained Change in Mental Status Sepsis Action Taken by Nursing 05/23/20 15:30 05/23/20 16:00 05/23/20 17:00 Temperature Temperature Source Pulse Rate 59 L 60 58 L Pulse Rate from SpO2 Sensor 60 Respiratory Rate 12 12 16 Respiratory Effort / Characteristics Respiratory Depth Blood Pressure 135/74 Blood Pressure Mean 94 Blood Pressure Position Pulse Oximetry 96 96 Oxygen Delivery Method Room Air Oxygen Flow Rate Sepsis Recent Fever Within 48 Hours Sepsis New/Unexplained Change in Mental Status Sepsis Action Taken by Nursing 05/23/20 17:10 05/23/20 17:20 05/23/20 17:30 Temperature Temperature Source Pulse Rate 58 L 58 L 58 L Pulse Rate from SpO2 Sensor Respiratory Rate 15 13 17 Respiratory Effort / Characteristics Respiratory Depth Blood Pressure Blood Pressure Mean Blood Pressure Position Pulse Oximetry Oxygen Delivery Method Oxygen Flow Rate Sepsis Recent Fever Within 48 Hours Sepsis New/Unexplained Change in Mental Status Sepsis Action Taken by Nursing 05/23/20 17:38 05/23/20 17:40 05/23/20 17:50 Temperature Temperature Source Pulse Rate 61 64 Pulse Rate from SpO2 Sensor Respiratory Rate 18 20 17 Respiratory Effort / Characteristics Respiratory Depth Blood Pressure 121/41 L Blood Pressure Mean 61 Blood Pressure Position Pulse Oximetry Oxygen Delivery Method Oxygen Flow Rate Sepsis Recent Fever Within 48 Hours Sepsis New/Unexplained Change in Mental Status Sepsis Action Taken by Nursing 05/23/20 18:19 Temperature Temperature Source Pulse Rate Pulse Rate from SpO2 Sensor Respiratory Rate Respiratory Effort / Characteristics Respiratory Depth Blood Pressure Blood Pressure Mean Blood Pressure Position Pulse Oximetry Oxygen Delivery Method Room Air Oxygen Flow Rate Sepsis Recent Fever Within 48 Hours Sepsis New/Unexplained Change in Mental Status Sepsis Action Taken by Usp Medications Current Medication List: was personally reviewed by me Laboratory Data Attestation: I reviewed the patient's lab results. Result diagrams: 05/23/20 13:20 05/23/20 13:20 Lab Results 05/23/20 05/23/20 05/23/20 Range/Units 13:20 13:20 13:20 WBC 8.48 (4.8-10.8) K/uL RBC 3.82 L (4.2-5.4) M/uL Hgb 11.5 L (12.0-16.0) g/dL Hct 35.3 L (37-47) % MCV 92.4 (80-100) fL MCH 30.1 (25-34) pg MCHC 32.6 (32-36) g/dL RDW Std Deviation 48.8 H (36.4-46.3) fL RDW Coeff of Gisele 14.4 (11.5-14.5) % Plt Count 146 (130-400) K/uL MPV 10.8 H (7.4-10.4) fL Immature Gran % (Auto) 0.2 % Neut % (Auto) 77.3 % Lymph % (Auto) 12.1 % Metcalfe % (Auto) 8.8 % Eos % (Auto) 1.5 % Baso % (Auto) 0.1 % Neut # (Auto) 6.54 H (1.4-6.5) K/uL Lymph # (Auto) 1.03 L (1.2-3.4) K/uL Metcalfe # (Auto) 0.75 H (0.11-0.59) K/uL Eos # (Auto) 0.13 (0-0.5) K/uL Baso # (Auto) 0.01 (0-0.2) K/uL Immature Gran # (Auto) 0.02 (0.00-0.02) K/uL PT 27.6 H (9.0-12.0) Seconds INR 2.8 H (0.9-1.1) Sodium 142 (136-145) mmol/L Potassium 4.2 (3.5-5.1) mmol/L Chloride 110 H (98-107) mmol/L Carbon Dioxide 28 (21-32) mmol/L Anion Gap 4.0 (3-11) BUN 29 H (7-18) mg/dl Creatinine 1.84 H (0.6-1.2) mg/dl Est Cr Clr Drug Dosing 25.6 ml/min Est GFR ( Amer) 31.6 Est GFR (Non-Af Amer) 27.3 BUN/Creatinine Ratio 15.8 (10-20) Glucose 96 (70-99) mg/dl Calcium 9.1 (8.5-10.1) mg/dl SARS-CoV-2 Ag (Rapid) (Negative) 05/23/20 Range/Units 17:55 WBC (4.8-10.8) K/uL RBC (4.2-5.4) M/uL Hgb (12.0-16.0) g/dL Hct (37-47) % MCV (80-100) fL MCH (25-34) pg MCHC (32-36) g/dL RDW Std Deviation (36.4-46.3) fL RDW Coeff of Gisele (11.5-14.5) % Plt Count (130-400) K/uL MPV (7.4-10.4) fL Immature Gran % (Auto) % Neut % (Auto) % Lymph % (Auto) % Metcalfe % (Auto) % Eos % (Auto) % Baso % (Auto) % Neut # (Auto) (1.4-6.5) K/uL Lymph # (Auto) (1.2-3.4) K/uL Metcalfe # (Auto) (0.11-0.59) K/uL Eos # (Auto) (0-0.5) K/uL Baso # (Auto) (0-0.2) K/uL Immature Gran # (Auto) (0.00-0.02) K/uL PT (9.0-12.0) Seconds INR (0.9-1.1) Sodium (136-145) mmol/L Potassium (3.5-5.1) mmol/L Chloride (98-107) mmol/L Carbon Dioxide (21-32) mmol/L Anion Gap (3-11) BUN (7-18) mg/dl Creatinine (0.6-1.2) mg/dl Est Cr Clr Drug Dosing ml/min Est GFR ( Amer) Est GFR (Non-Af Amer) BUN/Creatinine Ratio (10-20) Glucose (70-99) mg/dl Calcium (8.5-10.1) mg/dl SARS-CoV-2 Ag (Rapid) Negative (Negative) Administered Medications Discontinued Medications Acetaminophen (Acetaminophen 325 Mg Tab) 650 mg PO NOW STA Stop: 05/23/20 12:30 Last Admin: 05/23/20 14:51 Dose: 650 mg Documented by: [id number] Acetaminophen (Acetaminophen 500 Mg Tab) Confirm Administered Dose 1,000 mg .ROUTE .STK-MED ONE Stop: 05/23/20 14:47 Last Admin: 05/23/20 14:51 Dose: Not Given Documented by: [id number] Acetaminophen (Acetaminophen 325 Mg Tab) Confirm Administered Dose 650 mg .ROUTE .STK-MED ONE Stop: 05/23/20 14:51 Last Admin: 05/23/20 14:51 Dose: Not Given Documented by: [id number] Fentanyl Citrate (Fentanyl Citrate 100 Mcg/2 Ml Vial) 25 mcg IV NOW STA Stop: 05/23/20 15:09 Last Admin: 05/23/20 16:24 Dose: 25 mcg Documented by: [id number] Discharge Plan Visit Data Chief Complaint: Fall ED Provider: Jf Romero Discharge Problem: Fall, Ambulatory dysfunction, Effusion of knee joint right, Anticoagulated Patient Disposition: Being Evaluated by Hospitalist Discharge Instructions Interventions: ED Discharge Assessment Last Done: 05/23/20 18:19 Forms Stand Alone Forms: [facility] [employer] ([employer]) Prescriptions Prescriptions: No Action citalopram 20 mg tablet 20 mg PO QAM RF: 0 levothyroxine 50 mcg tablet 50 mcg PO QAM RF: 0 Lactobacillus acidophilus [Acidophilus] Capsule 100 mg PO TIDM RF: 0 warfarin 2.5 mg tablet 1.25 mg PO TUTHSA RF: 0 warfarin 2.5 mg tablet 2.5 mg PO SUMOWEFR RF: 0 rosuvastatin 20 mg tablet 20 mg PO DAILY RF: 0 ascorbic acid (vitamin C) 1,000 mg Tablet 1,000 mg PO DAILY RF: 0 cranberry 500 mg Capsule 500 mg PO DAILY RF: 0 Referrals Referrals: Gomez Bass MD [Primary Care Provider] - Discharge Problem: Fall Qualifiers: Encounter type: initial encounter Qualified Code(s): W19.XXXA - Unspecified fall, initial encounter
[2020-05-23] MEDS ORDERED: ACETAMINOPHEN 325 MG TAB PO STA (12:29)
--- NOTE | 2020-05-23 13:08 | XRay Report ---
XR knee RT 3V CLINICAL HISTORY: effusion and pain, s/p fall on coumadin COMPARISON: None. DISCUSSION: No acute fractures are visualized. There is prominent prepatellar soft tissue edema. Ther e are no dislocations IMPRESSION: 1. No acute fractures 2. Prominent prepatellar soft tissue swelling ACT 112: Negative or not required by law. Electronically signed by: Bob Gonzalez M.D. 05/23/2020 1:06 PM
--- NOTE | 2020-05-23 13:09 | XRay Report ---
XR femur RT 2V routine CLINICAL HISTORY: Right femur pain status post trauma COMPARISON: None. DISCUSSION: There is a total right hip arthroplasty. There are no acute fractures. There is prominent prepatellar soft tissue swelling. IMPRESSION: 1. Postsurgical changes 2. No acute fractures 3. Prepatellar soft tissue swelling ACT 112: Negative or not required by law. Electronically signed by: Bob Gonzalez M.D. 05/23/2020 1:07 PM
--- NOTE | 2020-05-23 13:10 | XRay Report ---
XR pelvis 1-2V routine HISTORY: 70 years-old Female s/p fall on coumadin acute pelvic pain status post fall COMPARISON: Right femur radiographs of same day TECHNIQUE: AP view the pelvis FINDINGS: Right hip total joint arthroplasty appears unremarkable. Mild left hip osteoarthritis. No acute fract ure or dislocation. Surgical clips project of the left hemipelvis. Postoperative changes of the lower lumbar spine. Unremarkable soft tissues. IMPRESSION: No acute fracture or dislocation. ACT 112: Negative or not required by law. The above report was generated using voice recognition software. It may contain grammatical, syntax o r spelling errors. Electronically signed by: Cm Clinton M.D. 05/23/2020 1:09 PM
[2020-05-23 13:35] LABS: Basophils # (auto) 0.01 K/uL (0-0.2); Basophils % (auto) 0.1 %; Eosinophils # (auto) 0.13 K/uL (0-0.5); Eosinophils % (auto) 1.5 %; Hematocrit (blood only) 35.3 % (37-47); Hemoglobin 11.5 g/dL (12.0-16.0); Immature Granulocytes # (auto) 0.02 K/uL (0.00-0.02); Immature Granulocytes % (auto) 0.2 %; Lymphocytes # (auto) 1.03 K/uL (1.2-3.4); Lymphocytes % (auto) 12.1 %; Mean Corpuscular Hemoglobin 30.1 pg (25-34); Mean Corpuscular Hgb Conc 32.6 g/dL (32-36); Mean Corpuscular Volume 92.4 fL (80-100); Mean Platelet Volume 10.8 fL (7.4-10.4); Monocytes # (auto) 0.75 K/uL (0.11-0.59); Monocytes % (auto) 8.8 %; Neutrophils # (auto) 6.54 K/uL (1.4-6.5); Neutrophils % (auto) 77.3 %; Platelet Count 146 K/uL (130-400); RDW Coefficient of Variation 14.4 % (11.5-14.5); RDW Standard Deviation 48.8 fL (36.4-46.3); Red Blood Count 3.82 M/uL (4.2-5.4); White Blood Count 8.48 K/uL (4.8-10.8)
[2020-05-23 13:50] LABS: BUN Creatinine Ratio 15.8 (10-20); Calcium 9.1 mg/dl (8.5-10.1); Creatinine Clr Calc Pharmacy 25.6 ml/min; Est GFR (African American) 31.6; Est GFR (Non-African American) 27.3; Potassium 4.2 mmol/L (3.5-5.1)
[2020-05-23] MEDS ORDERED: ACETAMINOPHEN 500 MG TAB ONE (14:46)
[2020-05-23] MEDS ORDERED: ACETAMINOPHEN 325 MG TAB ONE (14:50)
[2020-05-23] MEDS ORDERED: fentaNYL citrate 100 MCG/2 ML VIAL IV STA (15:08)
--- NOTE | 2020-05-23 15:17 | CT Scan Report ---
CT head/brain wo con CLINICAL HISTORY: 70 years-old Female with s/p fall on coumadin. Acute head injury status post fall TECHNIQUE: Multiple axial CT images of the head were obtained without contrast. A dose lowering tech nique was utilized adhering to the principles of ALARA. CT DOSE: 638.56 mGycm COMPARISON: CT cervical spine of same day, head CT 06/12/2019. FINDINGS: No acute intracranial hemorrhage, midline shift, intracranial mass, hydrocephalus, territorial ischem ia or abnormal extra-axial collection. Mild patchy white matter hypodensities suggest chronic microva scular ischemic disease. Small remote lacunar infarction of the left thalamus, unchanged. Small remot e lacunar infarct of the left cerebellar hemisphere is also stable. The calvarium is intact. Partially imaged new complete opacification of the left maxillary sinus. Re maining paranasal sinuses are clear. Mastoid air cells are clear. Soft tissues and orbits are unremar kable. IMPRESSION: No acute intracranial abnormality or calvarial fracture. ACT 112: Negative or not required by law. The above report was generated using voice recognition software. It may contain grammatical, syntax o r spelling errors. Electronically signed by: Cm Clinton M.D. 05/23/2020 3:15 PM
--- NOTE | 2020-05-23 15:25 | CT Scan Report ---
CT cervical spine wo con CT DOSE: 388.22 mGycm CLINICAL HISTORY: 70 years-old Female with s/p fall. Acute head and neck injury status post fall COMPARISON: CT head of same day, CTA neck 01/27/2019 TECHNIQUE: Multiple axial CT images of the cervical spine were obtained without contrast. A dose low ering technique was utilized adhering to the principles of ALARA. FINDINGS: Discectomy changes with complete bony fusion involves the C5-C6 vertebral bodies. Mild multilevel dis c space narrowing and uncovertebral spurring. There is mild to moderate disc space narrowing at C3-C4 . Moderate to severe multilevel facet arthrosis. Predental interval is widened to 5 mm, previously 4 mm. Slight anterior subluxation of the C1 vertebral body in relation to the extradural condyles appea rs similar to comparison. Developmental complete bony fusion involves the posterior arch of C1. No ac denise fracture or subluxation. Partially calcified pannus surrounds the odontoid process. Small posteri or disc osteophyte complex noted at C4-C5. There is no pneumothorax or prevertebral edema. Calcified plaque of the carotid bulbs. Partially imag ed opacified left maxillary sinus. IMPRESSION: 1. No acute fracture or subluxation. 2. Abnormal widening of the predental interval with anterior subluxation of C1 in relation to the occ ipital condyles appears similar to slightly progressed from the comparison exam and is likely on a de generative basis. 3. Prior discectomy with fusion at C5-C6. ACT 112: Negative or not required by law. The above report was generated using voice recognition software. It may contain grammatical, syntax o r spelling errors. Electronically signed by: Cm Clinton M.D. 05/23/2020 3:24 PM
--- NOTE | 2020-05-23 16:00 | Electrocardiogram Report ---
Test Reason : Blood Pressure : / mmHG Vent. Rate : 061 BPM Atrial Rate : 061 BPM P-R Int : 166 ms QRS Dur : 100 ms QT Int : 480 ms P-R-T Axes : 067 -13 049 degrees QTc Int : 483 ms Normal sinus rhythm Moderate voltage criteria for LVH, may be normal variant Nonspecific T wave abnormality Prolonged QT Abnormal ECG When compared with ECG of 12-JUN-2019 15:51, No significant change was found Confirmed by Troy Leedsma ([id number]) on 05/23/2020 4:00:26 PM Referred By: REFERRED SELF Confirmed By:Troy Ledesma
--- NOTE | 2020-05-23 17:24 | History & Physical Report ---
Date of Service May 23, 2020 Assessment & Plan (1) Ambulatory dysfunction: This is a 70yo F with a PMH of HTN, h/o CVA, HLD, CKD III, BIRDIE intolerant to CPAP, pulmonary HTN, h/o aortic valve and mitral valve replacements on coumadin and other medical problems listed below who presents after a mechanical fall at home. -No evidence of acute fracture on CT head, no acute fracture or subluxation on cervical spine CT. Some slightly progressed degenerative changes noted on cervical spine CT compared to last year but no pain on exam -R knee with prepatellar soft tissue swelling. Eitan wrapped in ED -Pelvis and R femur XR without acute fracture or dislocation -Social work coordinating placement at [facility] - no beds available this evening -Pain control, fall precautions, PT/OT evaluation. Discharge planning (2) CKD (chronic kidney disease): CKD III-IV, following with nephro for progressively worsening kidney function. Recent Cr ~ 2 since January -Cr 1.8 today. Gentle IV fluids, encourage PO intake, avoid nsaids (3) Paroxysmal SVT (supraventricular tachycardia): Continue Toprol (4) H/O mitral valve replacement with mechanical valve: (5) Hx of aortic valve replacement, mechanical: Goal INR 2.5-3. INR currently 2.8. Continue home regimen, including tonight's dose (6) Hypertension: Continue Toprol with hold parameters (7) Hypothyroidism: Continue levothyroxine (8) Dyslipidemia: Continue statin (9) BIRDIE (obstructive sleep apnea): Intolerant to CPAP DVT Ppx: on coumadin Code status: FULL PCP: Shelia Dispo: Observation med/surg. Discharge planning ordered. Patient seen in collaboration with Dr. Medrano. Please see addendum. History of Present Illness Chief Complaint: Fall at home Primary Care Provider: Gomez Bass MD This is a 70yo F with a PMH of HTN, h/o CVA, HLD, CKD III, BIRDIE intolerant to CPAP, pulmonary HTN, h/o aortic valve and mitral valve replacements on coumadin and other medical problems listed below who presents after a fall at home. Patient was walking in her garage when she tripped over something and landed on her knee. Denies any loss of consciousness or head trauma. No neck pain. Denies any preceding lightheadedness, visual changes, chest pain or shortness of breath. Does endorse dizziness with some positional changes, but that did not occur not today. Still with right knee pain. Denies any fever, chills, lightheadedness, headache, neck stiffness, visual changes, dizziness, chest pain, shortness of breath, nausea, vomiting, abdominal pain, dysuria, diarrhea o r constipation. Is on Coumadin for history of mechanical aortic and mitral valve replacements. Did not take any medications today. Has been following nephrology for increasing creatinine with a more recent baseline of low 2s since January. Is been instructed to drink more water and avoid NSAIDs. Allergies Allergy/AdvReac Type Severity Reaction Status Date / Time Bactrim Allergy Unknown . Verified 10/16/16 13:02 doxycycline Allergy Unknown . Verified 05/23/20 14:57 sulfamethoxazole Allergy Unknown . Verified 05/23/20 14:57 trimethoprim Allergy Unknown . Verified 05/23/20 14:57 Home Medications Medication Instructions Recorded Confirmed Type citalopram 20 mg PO QAM 07/31/18 05/23/20 History levothyroxine 50 mcg PO QAM 07/31/18 05/23/20 History warfarin 1.25 mg PO SUTUTHSA@1600 10/10/18 05/23/20 History warfarin 2.5 mg PO MOWEFR@1600 10/10/18 05/23/20 History ascorbic acid (vitamin C) 1,000 mg PO DAILY 01/27/19 05/23/20 History cranberry 500 mg PO DAILY 01/27/19 05/23/20 History rosuvastatin 20 mg PO DAILY 01/27/19 05/23/20 History Lactobacillus acidophilus 100 mg PO TIDM 06/12/19 05/23/20 History [Acidophilus] famotidine 10 mg PO DAILY 05/23/20 05/23/20 History metoprolol succinate 25 mg PO BID 05/23/20 05/23/20 History Past Med/Surg History Medical History Chronic constipation Chronic pain CKD (chronic kidney disease) CKD (chronic kidney disease), stage III CVA (cerebral vascular accident) Dyslipidemia Hypertension Hypothyroidism BIRDIE (obstructive sleep apnea) Paroxysmal SVT (supraventricular tachycardia) RLS (restless legs syndrome) Surgical History H/O hemorrhoidectomy H/O mitral valve replacement with mechanical valve H/O neck surgery H/O oophorectomy History of cholecystectomy History of total right hip replacement Hx of aortic valve replacement, mechanical S/P lumbar fusion S/P repair of paraesophageal hernia S/P total abdominal hysterectomy Family History Father Heart disease Mother Stroke Social History Smoking Status: Never smoker Second Hand Exposure: No; Do You Dip or Chew Tobacco: No; Tobacco Cessation Education Requested by Patient: No Hx Alcohol Use: No Hx Substance Use: No Preferred Language: Vincentian Communication Ability: Effective Lmsw Required: No Beliefs That Will Affect Care: None marital status: Current Living Situation: Spouse and Family current occupational status: retired Other Information That Helps Us Care for You: No Feels Safe at Home: Yes Safety Concerns: Feels Safe At This Time Assistive Devices: Denture - Upper and Glasses Review of Systems Review of Systems: At least ten systems reviewed and negative except as noted in the HPI. Physical Exam Physical Exam: General Appearance: WD/WN, vitals as above, NAD, sitting up in bed, pleasant, eating dinner Head: normocephalic, atraumatic Eyes: normal inspection, PERRL, conjunctivae normal, anicteric sclerae ENT: external ear and nose normal, hard of hearing, oropharynx normal Neck: normal visual inspection, non-tender to palpation, trachea midline, no thyromegaly Respiratory: normal respiratory effort, lungs clear to auscultation, no wheeze, rales, rhonchi. No accessory muscle use Cardiovascular: irregular rate & rhythm, metallic clic, normal peripheral pulses, no BLE edema. Vessels: no JVD Chest: normal inspection of chest Abdomen/GI: normal bowel sounds, soft, nontender, no hepatosplenomegaly Extremities/Musculoskeletal: + R knee TTP, wrapped in eitan bandage. No cyanosis or clubbing, extremities motor strength 5/5 Neurologic: PERRL, EOMI, accommodation nl, no face palsy, no dysarthria, CN's II-XI intact bilaterally and moves all extremities Psychiatric: A+Ox3, euthymic affect Skin: no rashes, normal color, warm/dry Results & Data Results & Data ([place]) Vital Signs (Past 12 Hours) Vital Signs Temp Pulse Resp BP Pulse Ox 05/23/20 17:00 58 L 16 135/74 05/23/20 16:00 60 12 96 05/23/20 15:30 59 L 12 96 05/23/20 15:06 59 L 16 96 05/23/20 15:05 58 L 13 141/64 H 95 05/23/20 14:30 69 14 98 05/23/20 14:00 60 13 96 05/23/20 13:30 63 12 96 05/23/20 13:00 63 16 100 05/23/20 12:50 62 15 100 05/23/20 12:29 99 05/23/20 12:14 37.3 C 66 20 157/67 H 88 L Laboratory Results Short CBC 05/23/20 05/23/20 05/23/20 Range/Units 13:20 13:20 13:20 WBC 8.48 (4.8-10.8) K/uL Hgb 11.5 L (12.0-16.0) g/dL Hct 35.3 L (37-47) % Plt Count 146 (130-400) K/uL INR 2.8 H (0.9-1.1) Creatinine 1.84 H (0.6-1.2) mg/dl BMP 05/23/20 13:20 Sodium 142 Potassium 4.2 Chloride 110 H Carbon Dioxide 28 BUN 29 H Creatinine 1.84 H Glucose [address]cium 9[address] head: IMPRESSION: No acute intracranial abnormality or calvarial fracture. Cervical spine CT: IMPRESSION: 1. No acute fracture or subluxation. 2. Abnormal widening of the predental interval with anterior subluxation of C1 in relation to the occipital condyles appears similar to slightly progressed from the comparison exam and is likely on a degenerative basis. 3. Prior discectomy with fusion at C5-C6. R knee XR: IMPRESSION: 1. No acute fractures 2. Prominent prepatellar soft tissue swelling Pelvis XR: IMPRESSION: No acute fracture or dislocation. R Femur XR: IMPRESSION: 1. Postsurgical changes 2. No acute fractures 3. Prepatellar soft tissue swelling Code Status & VTE Plan VTE Prophylaxis Plan VTE Prophylaxis will be ordered: Yes Supervising Physician Co-Signing Physician Notes Pt seen and examined by me, care coordinated with Poonam Patel PA-C, pls see her note above for further detail. This is a 70yo F with a PMH of HTN, h/o CVA, HLD, CKD III, BIRDIE intolerant to CPAP, pulmonary HTN, h/o aortic valve and mitral valve replacements on coumadin, who presents after a mechanical fall at home. No LOC, no head trauma. Pt unfortunately hurt her right knee. [facility]. Pt is currently sitting up in bed in [facility]. She is alert and oriented and answering questions appropriately. Heart sounds irregular, mechanical click noted. No LE edema. Right knee in eitan wraps. lungs sounds clear w/o any wheezing, rhonchi, crackles. Abdomen soft, nontender, nondistended. Pt is moving extremities spontaneously. Skin is warm, dry, well perfused. Checked INR which is therapeutic - given mechanical valves, this needs close monitoring. Continue supportive care and pain management as needed. Mohan Medrano MD (1) Hypertension Hypertension type: unspecified Qualified Code(s): I10 - Essential (primary) hypertension
[2020-05-23 17:53] LABS: INR 2.8 (0.9-1.1); Prothrombin Time 27.6 Seconds (9.0-12.0)
[2020-05-23] MEDS ORDERED: WARFARIN SOD 2.5 MG TAB PO SCH (19:30)
[2020-05-23] MEDS ORDERED: POLYETHYLENE (MIRALAX) 17 GM PACK PO PRN (19:56)
[2020-05-23] MEDS: ACETAMINOPHEN 500 MG TAB PO PRN (20:35)
[2020-05-23] MEDS ORDERED: METOPROLOL SUCC 25MG EXT REL TAB PO SCH (21:00)
[2020-05-23] MEDS ORDERED: traMADol HCL 50 MG TABLET PO STA (22:05)
[2020-05-24] MEDS: ACETAMINOPHEN 325 MG TAB PO PRN ×2 (03:34→08:14)
--- NOTE | 2020-05-24 03:56 | Communication Note ---
Date of Service: May 24, 2020 Made aware by RN of lightheadedness, palpitation symptoms. CR 50s SBP later noted to be 90s. crea 1.84 AP Hypotension, bradycardia Transfer to med telemetry Hold maintenance beta-stephany until heart rate and BP improved IVF bolus
[2020-05-24 04:34] LABS: Basophils # (auto) 0.02 K/uL (0-0.2); Basophils % (auto) 0.3 %; Eosinophils # (auto) 0.23 K/uL (0-0.5); Eosinophils % (auto) 3.2 %; Hematocrit (blood only) 33.5 % (37-47); Immature Granulocytes # (auto) 0.01 K/uL (0.00-0.02); Immature Granulocytes % (auto) 0.1 %; Lymphocytes # (auto) 1.49 K/uL (1.2-3.4); Lymphocytes % (auto) 20.5 %; Mean Corpuscular Hemoglobin 30.4 pg (25-34); Mean Corpuscular Hgb Conc 32.8 g/dL (32-36); Mean Corpuscular Volume 92.5 fL (80-100); Mean Platelet Volume 10.6 fL (7.4-10.4); Monocytes # (auto) 0.79 K/uL (0.11-0.59); Monocytes % (auto) 10.9 %; Neutrophils # (auto) 4.72 K/uL (1.4-6.5); Platelet Count 131 K/uL (130-400); RDW Coefficient of Variation 14.5 % (11.5-14.5); RDW Standard Deviation 49.1 fL (36.4-46.3); Red Blood Count 3.62 M/uL (4.2-5.4); White Blood Count 7.26 K/uL (4.8-10.8)
[2020-05-24 04:44] LABS: Prothrombin Time 29.8 Seconds (9.0-12.0)
[2020-05-24 04:53] LABS: BUN Creatinine Ratio 17.9 (10-20); Calcium 8.7 mg/dl (8.5-10.1); Creatinine Clr Calc Pharmacy 21.5 ml/min; Est GFR (African American) 30.4; Est GFR (Non-African American) 26.3; Potassium 3.9 mmol/L (3.5-5.1)
[2020-05-24 05:04] LABS: Thyroid Stimulating Hormone 2.42 uIu/ml (0.300-4.500)
[2020-05-24] MEDS ORDERED: LACTATED RINGER'S 1,000 ML IV ONE ×2 (05:38→07:30)
[2020-05-24] MEDS: LEVOTHYROXINE SODIUM 50 MCG TABLET PO SCH (06:20)
[2020-05-24] MEDS: CITALOPRAM 20 MG TAB PO SCH (08:10)
[2020-05-24] MEDS: ROSUVASTATIN CALCIUM 20 MG TAB PO SCH (08:10)
[2020-05-24] MEDS: ADVANCED PROBIOTIC 1250 MG CAPSULE PO SCH ×3 (08:10→17:02)
[2020-05-24] MEDS: FAMOTIDINE 10 MG TABLET PO SCH (08:10)
[2020-05-24] MEDS: ASCORBIC ACID 500 MG TAB PO SCH (08:10)
--- NOTE | 2020-05-24 08:17 | XRay Report ---
XR chest 1V portable HISTORY: renal failure COMPARISON: Chest 06/12/2019. FINDINGS: No pneumothorax. The heart remains mildly enlarged. There are poststernotomy changes and a cardiac valve prosthesis. Cervical spinal fusion hardware is noted. The upper lung zones are clear. N o evidence for pulmonary edema. A few bibasilar linear densities, unchanged. This favors subsegmental atelectasis. No pleural effusions. IMPRESSION: No significant change compared to the prior study. No acute process. Cardiomegaly and bibasilar linea r densities suggesting atelectasis persists. ACT 112: Negative or not required by law. Electronically signed by: Adriel Pandey M.D. 05/24/2020 8:16 AM
[2020-05-24] MEDS ORDERED: METOPROLOL TARTRATE 25 MG TAB PO SCH (09:00)
[2020-05-24] MEDS ORDERED: WARFARIN SOD 1.25 MG TAB PO SCH (16:00)
--- NOTE | 2020-05-24 21:30 | Hospitalist Progress Note ---
Date of Service delayed entry date of service noted below May 24, 2020 Assessment & Plan (1) Ambulatory dysfunction: per admitting service notes: This is a 70yo F with a PMH of HTN, h/o CVA, HLD, CKD III, BIRDIE intolerant to CPAP, pulmonary HTN, h/o aortic valve and mitral valve replacements on coumadin and other medical problems listed below who presents after a mechanical fall at home. -No evidence of acute fracture on CT head, no acute fracture or subluxation on cervical spine CT. Some slightly progressed degenerative changes noted on cervical spine CT compared to last year but no pain on exam -R knee with prepatellar soft tissue swelling. Eitan wrapped in ED -Pelvis and R femur XR without acute fracture or dislocation -Social work coordinating placement at [facility] - no beds available this evening -Pain control, fall precautions, PT/OT evaluation. Discharge planning 05/24 minimal Right Knee discomfort ice pack BID PT/OT recommending patient can go home anticipate d/c home tomorrow when medically stable (2) CKD (chronic kidney disease): per admitting service notes: CKD III-IV, following with nephro for progressively worsening kidney function. Recent Cr ~ 2 since January -Cr 1.9 (3) Paroxysmal SVT (supraventricular tachycardia): Continue Toprol (4) H/O mitral valve replacement with mechanical valve: (5) Hx of aortic valve replacement, mechanical: Goal INR 2.5-3. INR currently 3.0 continue coumadin (6) Hypertension: Continue Toprol with hold parameters (7) Hypothyroidism: Continue levothyroxine (8) Dyslipidemia: Continue statin (9) BIRDIE (obstructive sleep apnea): Intolerant to CPAP DVT Ppx: on coumadin Code status: FULL PCP: Shelia Dispo: jelly home tomorrow when medically stable Admission and Anticipated Discharge Date Admission Date: May 23, 2020 Subjective ff up for ambulatory dysfunction seen resting in bed, comfortable, not in distress oriented x 3, alert, in good spirits states she feels improved overall has right knee pain- improving able to ambulate today, with minimal pain almost back to baseline no headache, dizziness, chest pain, dyspnea, abdominal pain, nausea/vomiting denies any other in her body no other symptoms Review of Systems Review of Systems: All systems reviewed & are unremarkable except as noted in Subjective Physical Exam Physical Exam: General- oriented x 3, not in distress, speaks in sentences with no effort or accessory muscle use Head- atraumatic Eyes- PERRL, EOMI, anicteric ENT- oropharynx clear Neck- supple, no JVD, no adenopathy, no thyromegaly; carotids +2/2, no bruits appreciated Lungs- clear to auscultation bilaterally, no rales/wheezes Heart- normal rate, regular rhythm; no murmur, no gallop, no rub appreciated Abdomen- normal bowel sounds, nondistended, soft, nontender, no masses or hepatosplenomegaly Extremities- no pretibial edema, no calf tenderness; peripheral pulses intact right knee- moderate edema, bandage in place, no erythema/tenderness/warmth Neuro- alert, oriented x 3; CN 2-12 grossly intact; motor 5/5 bilaterally;sensation 100% on all extremities; no other gross focal neurologic deficits Skin- warm & dry Results & Data Results & Data ([facility]) Vital Signs (Past 12 Hours) Vital Signs Temp Pulse Pulse Resp BP Pulse Ox 05/24/20 19:21 37.1 C 57 L 17 130/62 94 05/24/20 15:25 36.9 C 54 L 18 103/54 L 96 05/24/20 15:00 54 L Laboratory Results all noted and reviewed (1) Hypertension Hypertension type: unspecified Qualified Code(s): I10 - Essential (primary) hypertension
[2020-05-24] MEDS: METOPROLOL TARTRATE 25 MG TAB PO SCH (21:51)
[2020-05-24] MEDS: ACETAMINOPHEN 500 MG TAB PO PRN (23:41)
[2020-05-25] MEDS: LEVOTHYROXINE SODIUM 50 MCG TABLET PO SCH (06:05)
[2020-05-25] MEDS ORDERED: MICONAZOLE NITRATE POWDER 43 GM EXT PRN (06:34)
[2020-05-25] MEDS: ADVANCED PROBIOTIC 1250 MG CAPSULE PO SCH ×2 (08:24→12:40)
[2020-05-25] MEDS: FAMOTIDINE 10 MG TABLET PO SCH (08:25)
[2020-05-25] MEDS: CITALOPRAM 20 MG TAB PO SCH (08:25)
[2020-05-25] MEDS: ASCORBIC ACID 500 MG TAB PO SCH (08:25)
[2020-05-25] MEDS: ROSUVASTATIN CALCIUM 20 MG TAB PO SCH (08:25)
[2020-05-25] MEDS: METOPROLOL TARTRATE 25 MG TAB PO SCH (08:27)
[2020-05-25] MEDS: ACETAMINOPHEN 325 MG TAB PO PRN (08:30)
--- NOTE | 2020-05-25 13:40 | Hospitalist Progress Note ---
Date of Service May 25, 2020 Assessment & Plan (1) Ambulatory dysfunction: per admitting service notes: This is a 70yo F with a PMH of HTN, h/o CVA, HLD, CKD III, BIRDIE intolerant to CPAP, pulmonary HTN, h/o aortic valve and mitral valve replacements on coumadin and other medical problems listed below who presents after a mechanical fall at home. -No evidence of acute fracture on CT head, no acute fracture or subluxation on cervical spine CT. Some slightly progressed degenerative changes noted on cervical spine CT compared to last year but no pain on exam -R knee with prepatellar soft tissue swelling. Eitan wrapped in ED -Pelvis and R femur XR without acute fracture or dislocation -Social work coordinating placement at [facility] - no beds available this evening 05/25 minimal Right Knee discomfort/able to walk independently using ice pack BID/PRN Tylenol only stable to be discharged home today (2) CKD (chronic kidney disease): per admitting service notes: CKD III-IV, following with nephro for progressively worsening kidney function. Recent Cr ~ 2 since January -Cr 1.9 (3) Paroxysmal SVT (supraventricular tachycardia): Continue Toprol (4) H/O mitral valve replacement with mechanical valve: (5) Hx of aortic valve replacement, mechanical: Goal INR 2.5-3. INR currently 3.0 continue coumadin (6) Hypertension: Continue Toprol (7) Hypothyroidism: Continue levothyroxine (8) Dyslipidemia: Continue statin (9) BIRDIE (obstructive sleep apnea): Intolerant to CPAP DVT Ppx: on coumadin Code status: FULL PCP: Shelia Dispo: stable to be discharged home today Admission and Anticipated Discharge Date Admission Date: May 23, 2020 Subjective sitting up on chair says rt knee pain has improved able to walk independently taking only PRN Tylenol and ice pack as needed for knee pain no fever or chills , no cough offers no other complain eager to be discharged home today Review of Systems Review of Systems: All systems reviewed & are unremarkable except as noted in HPI & below Musculoskeletal: as per Subjective / HPI and + joint pain (Rt knee pain improved ) Physical Exam Constitutional: WD/WN, vitals as above Eyes: PERRL, conjunctivae normal, anicteric sclerae ENMT: external ear and nose normal, oropharynx normal Neck: trachea midline, no thyromegaly Respiratory: normal respiratory effort, lungs clear to auscultation Cardiovascular: RRR, no murmur, no edema Gastrointestinal (Abdomen): normal bowel sounds, soft, nontender, no hepatosplenomegaly Musculoskeletal: rt knee : improvement of swelling and pain improved range of motion Skin: no rashes, warm and dry Neurologic: PERRL, EOMI, accommodation nl, no face palsy, no dysarthria Psychiatric: A+Ox3, euthymic affect Results & Data Results & Data ([facility]) Vital Signs (Past 12 Hours) Vital Signs Temp Pulse Pulse Resp BP BP Pulse Ox 05/25/20 13:27 36.8 C 63 18 115/58 L 96 05/25/20 11:11 36.8 C 63 18 115/58 L 96 05/25/20 07:47 36.6 C 58 L 18 139/62 95 05/25/20 07:02 56 L 05/25/20 04:11 36.7 C 57 L 16 142/61 H 95 (1) Hypertension Hypertension type: unspecified Qualified Code(s): I10 - Essential (primary) hypertension
--- NOTE | 2020-05-25 13:42 | Discharge Summary ---
Date of Service May 25, 2020 Admission HPI Per Admitting Provider This is a 70yo F with a PMH of HTN, h/o CVA, HLD, CKD III, BIRDIE intolerant to CPAP, pulmonary HTN, h/o aortic valve and mitral valve replacements on coumadin and other medical problems listed below who presents after a fall at home. Patient was walking in her garage when she tripped over something and landed on her knee. Denies any loss of consciousness or head trauma. No neck pain. Denies any preceding lightheadedness, visual changes, chest pain or shortness of breath. Does endorse dizziness with some positional changes, but that did not occur not today. Still with right knee pain. Denies any fever, chills, lightheadedness, headache, neck stiffness, visual changes, dizziness, chest pain, shortness of breath, nausea, vomiting, abdominal pain, dysuria, diarrhea or constipation. Is on Coumadin for history of mechanical aortic and mitral valve replacements. Did not take any medications today. Has been following nephrology for increasing creatinine with a more recent baseline of low 2s since January. Is been instructed to drink more water and avoid NSAIDs. Principal Diagnosis Fall /right knee pain Discharge Exam Constitutional WD/WN, vitals as above Eyes PERRL, conjunctivae normal, anicteric sclerae ENMT external ear and nose normal, oropharynx normal Neck trachea midline, no thyromegaly Respiratory normal respiratory effort, lungs clear to auscultation Cardiovascular RRR, no murmur, no edema Gastrointestinal (Abdomen) normal bowel sounds, soft, nontender, no hepatosplenomegaly Skin no rashes, warm and dry Neurologic PERRL, EOMI, accommodation nl, no face palsy, no dysarthria Psychiatric A+Ox3, euthymic affect Discharge Data Allergies Allergy/AdvReac Type Severity Reaction Status Date / Time Bactrim Allergy Unknown . Verified 10/16/16 13:02 doxycycline Allergy Unknown . Verified 05/23/20 14:57 sulfamethoxazole Allergy Unknown . Verified 05/23/20 14:57 trimethoprim Allergy Unknown . Verified 05/23/20 14:57 Consultations 05/23/20 17:08 ED Decision to Admit Stat 05/23/20 19:56 Consult Case Management - Discharge Planning Routine Ordered Studies 05/23/20 12:29 CT cervical spine wo con Stat CT head/brain wo con Stat Hospital Course (1) Ambulatory dysfunction: per admitting service notes: This is a 70yo F with a PMH of HTN, h/o CVA, HLD, CKD III, BIRDIE intolerant to CPAP, pulmonary HTN, h/o aortic valve and mitral valve replacements on coumadin and other medical problems listed below who presents after a mechanical fall at home. -No evidence of acute fracture on CT head, no acute fracture or subluxation on cervical spine CT. Some slightly progressed degenerative changes noted on cervical spine CT compared to last year but no pain on exam -R knee with prepatellar soft tissue swelling. Eitan wrapped in ED -Pelvis and R femur XR without acute fracture or dislocation -Social work coordinating placement at [facility] - no beds available this evening 05/25 minimal Right Knee discomfort/able to walk independently using ice pack BID/PRN Tylenol only stable to be discharged home today (2) CKD (chronic kidney disease): per admitting service notes: CKD III-IV, following with nephro for progressively worsening kidney function. Recent Cr ~ 2 since January -Cr 1.9 (3) Paroxysmal SVT (supraventricular tachycardia): Continue Toprol (4) H/O mitral valve replacement with mechanical valve: (5) Hx of aortic valve replacement, mechanical: Goal INR 2.5-3. INR currently 3.0 continue coumadin (6) Hypertension: Continue Toprol (7) Hypothyroidism: Continue levothyroxine (8) Dyslipidemia: Continue statin (9) BIRDIE (obstructive sleep apnea): Intolerant to CPAP DVT Ppx: on coumadin Code status: FULL PCP: Shelia Dispo: stable to be discharged home today Total Time Total Time Spent Total Time Spent (In Minutes): 35 mins Total Time Includes: Examination of the Patient, Discharge Planning and M edication Reconciliation Discharge Plan Discharge Items Patient Disposition: Home - Self-Care Reason For Visit: AMBULATORY DYSFUNCTION Discharge Diagnosis: Fall right knee pain Activity: As commented below Activity Comment: as tolerated Non-emergency contact: Primary Care Provider Call non-emergency contact if: you have any medication questions Follow-up/Referrals: Gomez Bass MD [Primary Care Provider] - Diet: Heart Healthy Addtl Attending Provider Instructions: Hospital follow up with Dr Bass in a week ICE pack to right knee Twice daily TYLENOL 8 HR Arthritis Pain Caplet dose 650 mg* (per caplet) *Extended-release. 2 bi-layer caplets every 8 hours with water Not to exceed 6 bi-layer caplets in 24 hours Total labeled daily dose: 3900 mg Pending Studies at Discharge: No Stand-Alone Forms: My [facility], Smoking Cessation Medications and DC Order Prescriptions: Continued citalopram 20 mg tablet 20 mg PO QAM RF: 0 levothyroxine 50 mcg tablet 50 mcg PO QAM RF: 0 Lactobacillus acidophilus [Acidophilus] Capsule 100 mg PO TIDM RF: 0 famotidine 10 mg Tablet 10 mg PO DAILY RF: 0 metoprolol succinate 50 mg tablet extended release 24 hr 25 mg PO BID RF: 0 warfarin 2.5 mg tablet 1.25 mg PO SUTUTHSA@1600 RF: 0 warfarin 2.5 mg tablet 2.5 mg PO MOWEFR@1600 RF: 0 rosuvastatin 20 mg tablet 20 mg PO DAILY RF: 0 ascorbic acid (vitamin C) 1,000 mg Tablet 1,000 mg PO DAILY RF: 0 cranberry 500 mg Capsule 500 mg PO DAILY RF: 0 Discharge Orders: Discharge Order (Routine); Ordered 05/25/20 Ordered By: Terri Ram Admission Data Admit Date/Time: 05/23/20 17:24 Attending Provider: Terri Ram Admit Provider: Esequiel Medrano Primary Care Provider: Gomez Bass Other Providers: [facility] ; Esequiel Medrano Other Interventions: Discharge Summary Assessment (RN) Last Done: 05/25/20 13:27
== END 2020-05-25 14:37 | disposition home or self-care (01) ==
LOC: 2N 12:03 → ED 12:03 → SUATTDRO 17:24 → 2N 18:19

== ENCOUNTER 2023-08-19 19:44 | Inpatient (IN) ==
--- NOTE | 2023-08-19 20:48 | Emergency Department Note ---
Impression & Plan Open fracture of left distal radius, Fall on same level from tripping, Warfarin anticoagulation ED Provider Note CHIEF COMPLAINT: Wrist injury HISTORY OF PRESENT ILLNESS: This 73-year-old female patient presents to the emergency department via EMS complaining of pain in the left wrist after a fall today. The patient states that she tripped while walking on her porch and tried to catch her fall by grabbing the railing, she believes she caught her wrist and twisted it in the railing causing the injury. The patient is not able to move their wrist. The patient states the pain is throbbing and 5/10. She received 10 mg IV morphine from EMS, which did help with the pain. She also received 4 mg IV Zofran and 2 g IV Ancef for concern of open fracture. There is a laceration/open wound on the wrist near the injury. The patient denies any numbness or tingling. Patient is unsure whether she hit her head when she fell, but she denies loss of consciousness and denies headache or neck pain. She does take warfarin and baby aspirin. The patient denies any other injury from the fall. The patient is able to move their fingers and elbow without difficulty. The patient has not had a previous fracture to this wrist. He is right-hand dominant. Her tetanus is not up-to-date. REVIEW OF SYSTEMS: A complete 10 point review of systems was reviewed with the patient with pertinent positives and negatives as per history of present illness. All else were negative. ALLERGIES: Reviewed in chart and with the patient PMH: Hypertension, dyslipidemia, CKD stage IV, history of CVA, hypothyroidism, BIRDIE, history of mechanical aortic valve replacement and mechanical mitral valve replacement, total abdominal hysterectomy, cholecystectomy, lumbar fusion SOCIAL HISTORY: Lives at home with family, she is a former smoker PHYSICAL EXAM: Vital Signs: Reviewed in triage notes, vital signs stable. CONSTITUTIONAL: Pleasant and cooperative. No acute distress. Hard of hearing. HEENT: Normocephalic, atraumatic. PERRLA, EOMI with no nystagmus. No hemotympanum bilaterally. NECK: Supple, full active range of motion without discomfort. No midline tenderness to palpation of the cervical spine. RESPIRATORY: Clear to auscultation bilaterally with no wheezing, crackles, rhonchi or stridor. Equal expansion bilaterally. CARDIOVASCULAR: Regular rate and rhythm, mechanical valve click. Normal peripheral perfusion, 2+ pulses in all 4 extremities. No peripheral edema. GASTROINTESTINAL: Soft, nontender, nondistended. No rebound tenderness or guarding. No palpable masses or HSM. Bowel sounds present in all quadrants. No CVA tenderness bilaterally. MUSCULOSKELETAL: There is obvious deformity of the left wrist. There is tenderness and edema over the entire wrist region. Range of motion of the wrist is severely limited. Patient is able to move fingers and elbow. There is no tenderness of the shoulder, elbow, hand or fingers. Radial pulse 2+. SKIN: Laceration/open wound noted on the anterior aspect of the distal left forearm/wrist adjacent to the area of deformity, the wound edges gape apart with traction and there is active bleeding from the wound. The hand is warm and well perfused with capillary refill less than 2 seconds. NEUROLOGIC: Sleepy, but easily aroused and oriented X 4 with normal affect. Cranial nerves II-XII grossly intact, no facial droop. No focal neurologic deficits noted. Normal strength and sensation in all 4 extremities. Normal speech. ED COURSE AND MEDICAL DECISION MAKING: CC: Patient presenting with complaint of left wrist injury DIFFERENTIAL DIAGNOSIS: Includes, but not limited to contusion, hematoma, sprain/strain, laceration, fracture, dislocation, open fracture, head injury, cervical spine injury, among others. INTERPRETATION OF LABS: No leukocytosis, anemia (baseline), normal platelets, no significant electrolyte abnormalities, elevated BUN and creatinine (baseline). Subtherapeutic INR (on warfarin). IMAGING: A 3 view x-ray of the left wrist was independently reviewed by myself and shows an acute displaced fracture of the distal radius with subcutaneous gas consistent with open fracture by my interpretation. A 1 view chest x-ray was independently reviewed by myself and shows cardiomegaly with sternotomy wires, no pneumothorax, hemothorax, or obvious rib fractures by my interpretation. A 2 view x-ray of the left shoulder was independently reviewed by myself and shows no acute fracture or dislocation by my interpretation. MEDICATION RECONCILIATION: I attest that I have personally reviewed the patient's current medication list. INITIAL VITAL SIGNS REVIEW: I reviewed the patient's initial vital signs and interpret them as follows: T: Afebrile; BP: Normotensive; HR: Within normal limits; RR: Within normal limits; Pulse Ox: Within normal limits on room air. MDM SUMMARY: Patient was evaluated at bedside, history and physical exam performed. Patient is drowsy but arousable, oriented, and in no acute distress. The patient did receive 10 mg IV morphine via EMS en route, as well as 2 g of IV Ancef and 4 mg IV Zofran. The patient was on nasal cannula oxygen on arrival after dropping oxygen saturations, most likely due to the morphine. Obvious deformity of the left wrist as noted above with open wound concerning for open fracture. Neurovascularly intact distal to the injury. She is neurologically intact with no focal deficits. No signs of trauma to the head or neck on exam. No other injuries noted on exam. She is on blood thinners. Orders were placed for x-ray of the chest and left wrist, CT of the head and cervical spine to evaluate for trauma. Tdap, labs also ordered. She already received IV antibiotic coverage for open fracture prophylaxis. Patient discussed with Dr. Chaney, who also evaluated the patient and agrees with my assessment, plan, and disposition. CT imaging of the head and cervical spine were negative for acute traumatic findings. Chest x-ray did not show any traumatic findings. Incomplete visualization of the left shoulder on chest x-ray, shoulder x-ray was performed for further evaluation which was negative. X-ray imaging reviewed as above, notable for an acute displaced open fracture of the distal radius. I spoke on the phone with Dr. Jones, on-call for orthopedic surgery, he preferred to perform bedside washout and reduction with conscious sedation at this time due to the patient's warfarin therapy, and she will be admitted for appropriate reversal prior to surgical repair. Last p.o. food was noon today and she took some pills with water around 4 PM today. Conscious sedation was performed by Dr. Chaney and the reduction and washout were performed by Dr. Jones, please see their documentation for further details. No acute lab abnormalities. INR appears to be subtherapeutic at 1.6 I spoke with the [facility] hospitalist team regarding admission of the patient, they agreed to evaluate the patient for admission. Patient reassessed multiple times throughout ED stay, she has remained hemodynamically stable and is recovering well after conscious sedation. The patient and her were updated on all results and plan for admission, all questions were answered to the best of my ability and the patient was agreeable to this plan. The patient was stable at the time of admission. The chart was completed utilizing [employer] voice recognition software. Grammatical errors, random word insertions, pronoun errors, and incomplete sentences are an occasional consequence of this system due to software limitations, ambient noise, and hardware issues. Any formal questions or concerns about the content, text, or information contained within the body of this dictation should be directly addressed to the nurse practitioner for clarification. The chart was completed utilizing [employer] Speech voice recognition software. Grammatical errors, random word insertions, pronoun errors, and incomplete sentences are an occasional consequence of this system due to software limitations, ambient noise, and hardware issues. Any formal questions or concerns about the content, text, or information contained within the body of this dictation should be directly addressed to the nurse practitioner for clarification. Past Med/Surg History Medical History Paroxysmal SVT (supraventricular tachycardia) Chronic constipation RLS (restless legs syndrome) Chronic pain CKD (chronic kidney disease), stage III Hypertension CVA (cerebral vascular accident) BIRDIE (obstructive sleep apnea) Dyslipidemia Hypothyroidism Surgical History S/P total abdominal hysterectomy H/O neck surgery History of cholecystectomy H/O oophorectomy S/P repair of paraesophageal hernia History of total right hip replacement S/P lumbar fusion H/O hemorrhoidectomy Hx of aortic valve replacement, mechanical H/O mitral valve replacement with mechanical valve Family History Father Heart disease Mother Stroke Social History Smoking Status: Former smoker Second Hand Exposure: No; Do You Dip or Chew Tobacco: No; Hx Alcohol Use: No Hx Substance Use: No Preferred Language: Bulgarian Communication Ability: Effective Visual Impairment: No Limitations Hearing Ability: Hard of Hearing 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 Beliefs That Will Affect Care: None marital status: Current Living Situation: Spouse and Family current occupational status: retired Feels Safe at Home: Yes Childhood Exposure to Second-Hand Smoke: No Diet: regular Diet Comment: regular Dental Care, Regularly: No Physical Activity Frequency: Does not Exercise Seatbelt Use: always Sunscreen Use: No Assistive Devices: Glasses and Walker Allergies Allergies Allergy/AdvReac Type Severity Reaction Status Date / Time doxycycline Allergy Unknown CAN'T Verified 08/19/23 22:01 REMEMBER sulfamethoxazole Allergy Unknown CAN'T Verified 08/19/23 22:01 REMEMBER trimethoprim Allergy Unknown CAN'T Verified 08/19/23 22:01 REMEMBER Home Meds Home Medications Medication Instructions Recorded Confirmed citalopram 20 mg tablet 20 mg PO QAM 07/31/18 08/19/23 levothyroxine 50 mcg tablet 50 mcg PO QAM 07/31/18 08/19/23 amlodipine 2.5 mg tablet 2.5 mg PO DAILY 07/19/23 08/19/23 atorvastatin 40 mg tablet 40 mg PO DAILY 07/19/23 08/19/23 triamcinolone acetonide 0.1 % 1 applic topical BID PRN Skin 07/19/23 08/19/23 topical cream Irritation aspirin 81 mg chewable tablet 81 mg PO Q OTHER DAY 08/12/23 08/19/23 warfarin 2.5 mg tablet See Rx Instructions PO .COMPLEX 08/12/23 08/19/23 metoprolol succinate 25 mg 25 mg PO BID 08/19/23 08/19/23 tablet,extended release 24 hr Previous Rx's Medication Instructions Recorded allopurinol 100 mg tablet 100 mg PO DAILY #90 tabs 07/19/23 isosorbide mononitrate 30 mg 30 mg PO QAM #90 tabs 07/19/23 tablet,extended release 24 hr pregabalin 100 mg capsule (Lyrica) 100 mg PO PM #90 caps 07/19/23 pramipexole 0.125 mg tablet 0.125 mg PO QPM #30 tabs 08/02/23 folic acid 1 mg tablet 1 mg PO DAILY #90 tabs 08/05/23 Results & Data (ED) Vital Signs Vital Signs - 24 hr 08/19/23 19:51 08/19/23 19:55 08/19/23 21:45 Temperature 37.4 C Temperature Source Oral Pulse Rate 68 64 65 Pulse Rate from SpO2 Sensor 64 Pulse Rhythm Regular Respiratory Rate 18 23 Respiratory Effort / Characteristics Non-Labored Spontaneous Respiratory Depth Normal Blood Pressure 128/65 Blood Pressure Mean 86 Pulse Oximetry 99 98 Oxygen Delivery Method Room Air Oxygen Flow Rate Sepsis Recent Fever Within 48 Hours No Sepsis New/Unexplained Change in Mental Status N/A Sepsis Action Taken by Nursing No Action Required End-Tidal CO2 08/19/23 21:50 08/19/23 21:55 08/19/23 22:00 Temperature Temperature Source Pulse Rate 65 65 64 Pulse Rate from SpO2 Sensor Pulse Rhythm Respiratory Rate 12 14 Respiratory Effort / Characteristics Respiratory Depth Blood Pressure Blood Pressure Mean Pulse Oximetry Oxygen Delivery Method Nasal Cannula Oxygen Flow Rate 2 Sepsis Recent Fever Within 48 Hours Sepsis New/Unexplained Change in Mental Status Sepsis Action Taken by Nursing End-Tidal CO2 08/19/23 22:05 08/19/23 22:10 08/19/23 22:11 Temperature Temperature Source Pulse Rate 63 65 65 Pulse Rate from SpO2 Sensor 63 65 65 Pulse Rhythm Respiratory Rate 15 14 16 Respiratory Effort / Characteristics Respiratory Depth Blood Pressure Blood Pressure Mean Pulse Oximetry 99 99 99 Oxygen Delivery Method Nasal Cannula Nasal Cannula Oxygen Flow Rate 2 2 Sepsis Recent Fever Within 48 Hours Sepsis New/Unexplained Change in Mental Status Sepsis Action Taken by Nursing End-Tidal CO2 25 23 18 08/19/23 22:11 08/19/23 22:15 08/19/23 22:15 Temperature Temperature Source Pulse Rate 65 Pulse Rate from SpO2 Sensor 65 Pulse Rhythm Respiratory Rate 13 Respiratory Effort / Characteristics Respiratory Depth Blood Pressure 124/58 L 100/54 L Blood Pressure Mean 80 60 Pulse Oximetry 100 Oxygen Delivery Method Nasal Cannula Oxygen Flow Rate 2 Sepsis Recent Fever Within 48 Hours Sepsis New/Unexplained Change in Mental Status Sepsis Action Taken by Nursing End-Tidal CO2 7 08/19/23 22:18 08/19/23 22:18 08/19/23 22:20 Temperature Temperature Source Pulse Rate 61 Pulse Rate from SpO2 Sensor 62 Pulse Rhythm Respiratory Rate 11 L Respiratory Effort / Characteristics Respiratory Depth Blood Pressure 84/50 L 83/48 L Blood Pressure Mean 55 62 Pulse Oximetry 97 Oxygen Delivery Method Nasal Cannula Oxygen Flow Rate 2 Sepsis Recent Fever Within 48 Hours Sepsis New/Unexplained Change in Mental Status Sepsis Action Taken by Nursing End-Tidal CO2 22 08/19/23 22:20 08/19/23 22:22 08/19/23 22:22 Temperature Temperature Source Pulse Rate 61 62 Pulse Rate from SpO2 Sensor 62 61 Pulse Rhythm Respiratory Rate 12 12 Respiratory Effort / Characteristics Respiratory Depth Blood Pressure 92/47 L Blood Pressure Mean 68 Pulse Oximetry 98 98 Oxygen Delivery Method Nasal Cannula Oxygen Flow Rate 2 Sepsis Recent Fever Within 48 Hours Sepsis New/Unexplained Change in Mental Status Sepsis Action Taken by Nursing End-Tidal CO2 23 21 08/19/23 22:24 08/19/23 22:24 08/19/23 22:25 Temperature Temperature Source Pulse Rate 60 60 Pulse Rate from SpO2 Sensor 60 59 L Pulse Rhythm Respiratory Rate 11 L 10 L Respiratory Effort / Characteristics Respiratory Depth Blood Pressure 88/41 L Blood Pressure Mean 57 Pulse Oximetry 98 98 Oxygen Delivery Method Nasal Cannula Oxygen Flow Rate 2 Sepsis Recent Fever Within 48 Hours Sepsis New/Unexplained Change in Mental Status Sepsis Action Taken by Nursing End-Tidal CO2 25 19 08/19/23 22:26 08/19/23 22:26 08/19/23 22:28 Temperature Temperature Source Pulse Rate 59 L Pulse Rate from SpO2 Sensor 59 L Pulse Rhythm Respiratory Rate 11 L 11 L Respiratory Effort / Characteristics Respiratory Depth Blood Pressure 81/44 L 93/50 L Blood Pressure Mean 50 56 Pulse Oximetry 98 Oxygen Delivery Method Nasal Cannula Oxygen Flow Rate 2 Sepsis Recent Fever Within 48 Hours Sepsis New/Unexplained Change in Mental Status Sepsis Action Taken by Nursing End-Tidal CO2 12 08/19/23 22:28 08/19/23 22:30 08/19/23 22:30 Temperature Temperature Source Pulse Rate 59 L 59 L Pulse Rate from SpO2 Sensor 59 L 59 L Pulse Rhythm Respiratory Rate 11 L 10 L Respiratory Effort / Characteristics Respiratory Depth Blood Pressure 102/47 L Blood Pressure Mean 61 Pulse Oximetry 99 98 Oxygen Delivery Method Nasal Cannula Nasal Cannula Oxygen Flow Rate 2 2 Sepsis Recent Fever Within 48 Hours Sepsis New/Unexplained Change in Mental Status Sepsis Action Taken by Nursing End-Tidal CO2 28 29 08/19/23 22:32 08/19/23 22:32 08/19/23 22:34 Temperature Temperature Source Pulse Rate 62 61 Pulse Rate from SpO2 Sensor 62 61 Pulse Rhythm Respiratory Rate 11 L 10 L Respiratory Effort / Characteristics Respiratory Depth Blood Pressure 92/50 L Blood Pressure Mean 65 Pulse Oximetry 98 99 Oxygen Delivery Method Nasal Cannula Nasal Cannula Oxygen Flow Rate 2 2 Sepsis Recent Fever Within 48 Hours Sepsis New/Unexplained Change in Mental Status Sepsis Action Taken by Nursing End-Tidal CO2 29 14 08/19/23 22:34 08/19/23 22:35 08/19/23 22:36 Temperature Temperature Source Pulse Rate 60 60 Pulse Rate from SpO2 Sensor 61 60 Pulse Rhythm Respiratory Rate 10 L 11 L Respiratory Effort / Characteristics Respiratory Depth Blood Pressure 102/53 L Blood Pressure Mean 61 Pulse Oximetry 96 93 Oxygen Delivery Method Nasal Cannula Oxygen Flow Rate 2 Sepsis Recent Fever Within 48 Hours Sepsis New/Unexplained Change in Mental Status Sepsis Action Taken by Nursing End-Tidal CO2 32 41 08/19/23 22:36 08/19/23 22:38 08/19/23 22:38 Temperature Temperature Source Pulse Rate 59 L Pulse Rate from SpO2 Sensor 60 Pulse Rhythm Respiratory Rate 12 Respiratory Effort / Characteristics Respiratory Depth Blood Pressure 104/50 L 110/60 Blood Pressure Mean 69 70 Pulse Oximetry 98 Oxygen Delivery Method Nasal Cannula Oxygen Flow Rate 2 Sepsis Recent Fever Within 48 Hours Sepsis New/Unexplained Change in Mental Status Sepsis Action Taken by Nursing End-Tidal CO2 30 08/19/23 22:40 Temperature Temperature Source Pulse Rate 60 Pulse Rate from SpO2 Sensor 61 Pulse Rhythm Respiratory Rate 12 Respiratory Effort / Characteristics Respiratory Depth Blood Pressure Blood Pressure Mean Pulse Oximetry 99 Oxygen Delivery Method Nasal Cannula Oxygen Flow Rate 2 Sepsis Recent Fever Within 48 Hours Sepsis New/Unexplained Change in Mental Status Sepsis Action Taken by Nursing End-Tidal CO2 30 Laboratory Data 08/19/23 21:25 08/19/23 21:25 Lab Results 08/19/23 Range/Units 21:25 WBC 8.73 (4.8-10.8) K/ul RBC 3.08 L (4.20-5.40) M/uL Hgb 9.7 L (12.0-16.0) g/dl Hct 29.0 L (37.0-47.0) % MCV 94.2 (80.0-100.0) fL MCH 31.5 (25.0-34.0) pg MCHC 33.4 (32.0-36.0) g/dL RDW Std Deviation 52.4 H (36.4-46.3) fL RDW Coeff of Gisele 15.1 H (11.5-14.5) % Plt Count 187 (130-400) K/uL MPV 11.3 (9.4-12.4) fL Immature Gran % (Auto) 0.5 % Neut % (Auto) 75.8 % Lymph % (Auto) 11.6 % [place] % (Auto) 8.9 % Eos % (Auto) 2.7 % Baso % (Auto) 0.5 % Neut # (Auto) 6.62 H (1.40-6.50) K/uL Lymph # (Auto) 1.01 L (1.20-3.40) K/uL [place] # (Auto) 0.78 H (0.11-0.59) K/uL Eos # (Auto) 0.24 (0.00-0.50) K/uL Baso # (Auto) 0.04 (0.00-0.20) K/uL Immature Gran # (Auto) 0.04 (0.01-0.20) K/uL PT 16.7 H (9.0-12.0) Seconds INR 1.6 H (0.9-1.1) APTT 37 H (21-31) Seconds PTT Ratio 1.3 Sodium 137 (136-145) mmol/L Potassium 4.6 (3.5-5.1) mmol/L Chloride 107 (98-107) mmol/L Carbon Dioxide 23 (21-32) mmol/L Anion Gap 7 (3-11) BUN 35 H (6-23) mg/dl Creatinine 2.32 H (0.6-1.2) mg/dl Est Cr Clr Drug Dosing 16.3 ml/min Est GFR ( Amer) 23.4 ml/min Est GFR (Non-Af Amer) 20.2 ml/min BUN/Creatinine Ratio 15.1 (10-20) Glucose 108 H (70-99(Fasting)) mg/dl Calcium 8.6 (8.6-10.3) mg/dl Administered Medications Heparin Sodium/Dextrose (Heparin Sodium/Dextrose) 25,000 units in 500 mls @ 18 mls/hr IV .Q24H [facility]; Protocol Stop: 09/18/23 23:25 Last Admin: 08/20/23 00:26 Dose: 900 units/hr, 18 mls/hr Documented By: CHRIS Co-signed By: DEBORA Lactated Ringer's (Lr) 1,000 mls @ 100 mls/hr IV .Q10H [facility] Stop: 09/18/23 23:29 Last Admin: 08/20/23 02:00 Dose: 100 mls/hr Discontinued Medications Diphtheria/Pertussis/Tetanus Vacc (Diphther/Tetan/Pertus Vaccine (Tdap, Adol/Adult) 0.5ml) 0.5 ml IM .ONCE ONE Stop: 08/19/23 20:38 Last Admin: 08/19/23 21:22 Dose: 0.5 ml Documented By: [facility] Piperacillin Sod/Tazobactam Sod (Zosyn) 4.5 gm in 100 mls @ 200 mls/hr IV NOW ONE Stop: 08/19/23 21:22 Last Infusion: 08/19/23 21:52 Dose: Infused Documented By: Admin: 08/19/23 21:22 Dose: 200 mls/hr Documented By: WILLIAM Vancomycin HCl 1,250 mg/ (Sodium Chloride) 275 mls @ 200 mls/hr IV ONE STA Stop: 08/20/23 00:59 Last Admin: 08/20/23 01:59 Dose: 200 mls/hr Lidocaine HCl (Xylocaine 1%/Sod Bicarb 20 Ml Vial) 20 ml INFIL NOW ONE Stop: 08/19/23 21:38 Last Admin: 08/20/23 02:20 Dose: 20 ml Propofol (Propofol Iv Emulsion 10 Mg/Ml 20 Ml Vial) Confirm Administered Dose 200 mg IV .STK-MED ONE Stop: 08/19/23 22:08 Last Admin: 08/20/23 02:21 Dose: 200 mg Imaging Data Radiologist's Impression: Cervical Spine CT 08/19/23 20:37 Exam(s): CT C SPINE EXAM: CT Cervical Spine Without Intravenous Contrast CLINICAL HISTORY: Reason for exam: fall, ?hit head, on warfarin. TECHNIQUE: Axial computed tomography images of the cervical spine without intravenous contrast. CTDI is 21.05 mGy and DLP is 408.16 mGy-cm. Automated exposure control was utilized for the study. A dose lowering technique was utilized adhering to the principles of ALARA. COMPARISON: 05/23/2020 FINDINGS: Vertebrae: Grade 1 retrolisthesis of C3 relative to C4. Otherwise alignment is maintained with preservation of vertebral body heights. No acute fracture. Discs/spinal canal/neural foramina: Prior C5-6 discectomy with placement of intervertebral fusion device. The bone cage extends 2 mm anterior to the anterior cortical margin but are stable from prior exam. No significant bony spinal canal stenosis at any cervical level. Soft tissues: Unremarkable. IMPRESSION: No acute findings in the cervical spine. Electronically signed by: Bora Chaney M.D. 08/19/23 21:[address] 08/19/23 20:37 Exam(s): CT HEAD Without Contrast EXAM: CT Head Without Intravenous Contrast CLINICAL HISTORY: Reason for exam: fall, ?hit head, on warfarin. TECHNIQUE: Axial computed tomography images of the head/brain without intravenous contrast. CTDI is 36.43 mGy and DLP is 546.36 mGy-cm. Automated exposure control was utilized for the study. A dose lowering technique was utilized adhering to the principles of ALARA. COMPARISON: 05/23/2020 FINDINGS: Brain: Mild periventricular white matter changes, likely related to microangiopathy. No hemorrhage. Ventricles: Unremarkable. No ventriculomegaly. Bones/joints: Unremarkable. No acute fracture. Soft tissues: Unremarkable. Sinuses: Minimal layering mucus in the left maxillary sinus. Mastoid air cells: Unremarkable as visualized. No mastoid effusion. IMPRESSION: No acute findings in the head/brain. Electronically signed by: Bora Chaney M.D. 08/19/23 21:32 PM Discharge Plan Visit Data Chief Complaint: Wrist Pain Stated Complaint: WRIST PAIN, OPEN FX ED Provider: Santo Chaney ED Midlevel Provider: Yesi Peñaloza Discharge Problem: Open fracture of left distal radius, Fall on same level from tripping, Warfarin anticoagulation Patient Disposition: Admitted As Inpatient Discharge Instructions Interventions: ED Discharge Assessment Last Done: 08/19/23 23:27 Discharge Problem: Open fracture of left distal radius Qualifiers: Encounter type: initial encounter
--- NOTE | 2023-08-19 20:52 | Emergency Department Note ---
ED Visit Note I was consulted by the Advanced Practice Provider. I personally made/approved the management plan and take responsibility for the patient management. I performed a substantive portion of the visit. This includes the aspects of: In brief this is 73-year-old female who fell on her back deck and has a likely open fracture to her left wrist. Orthopedic surgery will be coming down for reduction, washout. Procedural Sedation Indication displaced distal radius fracture Total time: See nursing notes Written consent was obtained after the risks and benefits were explained to the /, including, but not limited to aspiration, allergic reaction, breathing difficulties, cardiac complications, vomiting, pain, event recall, bleeding, and/or infection. Pre-sedation examination and paperwork completed. The patient was on 100% oxygen via NRB prior to the procedure. Continous end tidal CO2 monitoring, pulse oximetry, and cardiac monitoring were utilized. Suction, airway equipment, medications, respiratory equipment, and appropriate personnel were prepared prior to the initiation of the procedure. A time out was taken. Sedation was achieved utilizing a total of 30 mg of propofol. After I observed the patient had reached the appropriate level of sedation the main procedure was performed without complication. Sedation was discontinued and the monitoring continued. The patient recovered quickly from the effects of the medication without complication or adverse event. .
[2023-08-19] MEDS: DIPHTHER/TETAN/PERTUS Vaccine (Tdap, Adol/Adult) 0.5mL IM ONE (21:22)
[2023-08-19] MEDS: PIPERACILLIN/TAZOBACTAM 4.5 GM/100 ML BAG IV ONE (21:22)
--- NOTE | 2023-08-19 21:33 | CT Scan Report ---
Exam(s): CT HEAD Without Contrast EXAM: CT Head Without Intravenous Contrast CLINICAL HISTORY: Reason for exam: fall, ?hit head, on warfarin. TECHNIQUE: Axial computed tomography images of the head/brain without intravenous contrast. CTDI is 36.43 mGy and DLP is 546.36 mGy-cm. Automated exposure control was utilized for the study. A dose lowering technique was utilized adhering to the principles of ALARA. COMPARISON: 05/23/2020 FINDINGS: Brain: Mild periventricular white matter changes, likely related to microangiopathy. No hemorrhage. Ventricles: Unremarkable. No ventriculomegaly. Bones/joints: Unremarkable. No acute fracture. Soft tissues: Unremarkable. Sinuses: Minimal layering mucus in the left maxillary sinus. Mastoid air cells: Unremarkable as visualized. No mastoid effusion. IMPRESSION: No acute findings in the head/brain. Electronically signed by: Bora Chaney M.D. 08/19/23 21:32 PM
--- NOTE | 2023-08-19 21:36 | CT Scan Report ---
Exam(s): CT C SPINE EXAM: CT Cervical Spine Without Intravenous Contrast CLINICAL HISTORY: Reason for exam: fall, ?hit head, on warfarin. TECHNIQUE: Axial computed tomography images of the cervical spine without intravenous contrast. CTDI is 21.05 mGy and DLP is 408.16 mGy-cm. Automated exposure control was utilized for the study. A dose lowering technique was utilized adhering to the principles of ALARA. COMPARISON: 05/23/2020 FINDINGS: Vertebrae: Grade 1 retrolisthesis of C3 relative to C4. Otherwise alignment is maintained with preservation of vertebral body heights. No acute fracture. Discs/spinal canal/neural foramina: Prior C5-6 discectomy with placement of intervertebral fusion device. The bone cage extends 2 mm anterior to the anterior cortical margin but are stable from prior exam. No significant bony spinal canal stenosis at any cervical level. Soft tissues: Unremarkable. IMPRESSION: No acute findings in the cervical spine. Electronically signed by: Bora Chaney M.D. 08/19/23 21:35 PM
[2023-08-19 21:42] LABS: Basophils # (auto) 0.04 K/uL (0.00-0.20); Basophils % (auto) 0.5 %; Eosinophils # (auto) 0.24 K/uL (0.00-0.50); Eosinophils % (auto) 2.7 %; Hemoglobin 9.7 g/dl (12.0-16.0); Immature Granulocytes # (auto) 0.04 K/uL (0.01-0.20); Immature Granulocytes % (auto) 0.5 %; Lymphocytes # (auto) 1.01 K/uL (1.20-3.40); Lymphocytes % (auto) 11.6 %; Mean Corpuscular Hemoglobin 31.5 pg (25.0-34.0); Mean Corpuscular Hgb Conc 33.4 g/dL (32.0-36.0); Mean Corpuscular Volume 94.2 fL (80.0-100.0); Mean Platelet Volume 11.3 fL (9.4-12.4); Monocytes # (auto) 0.78 K/uL (0.11-0.59); Monocytes % (auto) 8.9 %; Neutrophils # (auto) 6.62 K/uL (1.40-6.50); Neutrophils % (auto) 75.8 %; Platelet Count 187 K/uL (130-400); RDW Coefficient of Variation 15.1 % (11.5-14.5); RDW Standard Deviation 52.4 fL (36.4-46.3); Red Blood Count 3.08 M/uL (4.20-5.40); White Blood Count 8.73 K/ul (4.8-10.8)
[2023-08-19 21:58] LABS: BUN Creatinine Ratio 15.1 (10-20); Calcium 8.6 mg/dl (8.6-10.3); Creatinine Clr Calc Pharmacy 16.3 ml/min; Est GFR (African American) 23.4 ml/min; Est GFR (Non-African American) 20.2 ml/min; Potassium 4.6 mmol/L (3.5-5.1)
[2023-08-19 22:07] LABS: INR 1.6 (0.9-1.1); Partial Thromboplastin Ratio 1.3; Partial Thromboplastin Time 37 Seconds (21-31); Prothrombin Time 16.7 Seconds (9.0-12.0)
--- NOTE | 2023-08-19 22:18 | History & Physical Report ---
Date of Service August 19, 2023 Assessment & Plan (1) Left wrist fracture: (2) CKD (chronic kidney disease) stage 4, GFR 15-29 ml/min: (3) Hx of aortic valve replacement, mechanical: (4) H/O mitral valve replacement with mechanical valve: (5) History of CVA (cerebrovascular accident): (6) Ambulatory dysfunction: (7) Paroxysmal SVT (supraventricular tachycardia): (8) BIRDIE (obstructive sleep apnea): (9) Dyslipidemia: (10) Hypothyroidism: Plan This is a 73 y/o female patient with PMHx of Hypothyroidism, DLP, HTN, aortic mechanical valve, mitral mechanical valve, prior CVA, CKD-IV, pSVT, RLS, and BIRDIE who was admitted for management of compound left wrist fracture that came as a result of a mechanical fall. Left Wrist Fracture -Left wrist fracture that came as a result of a mechanical fall after patient slipped while trying to carry a mattress in her front porch -No preceding symptoms such as palpitations, chest pain, lightheadedness, dizziness, diaphoresis, or any other symptom -Patient able to perform ADLs independently prior to this -Given a total of 10 mg of morphine in the EMS, as well as Ancef. Also given Zosyn in the ED -Left wrist x-ray performed in the ED showing fork deformity -Head CT and C-spine CT negative for acute abnormalities -Chest x-ray unremarkable -Will order Vancomycin empirically given patient's open wound and hx of mechanical valves Will order MRSA swab. If negative, may dc Vancomycin -Ortho consulted and seen patient in the ED Irrigated and debrided skin and subcutaneous tissue at patient's bedside Close reduction performed under sedation Plan for possible surgical treatment with ORIF tentatively on Saturday depending on patient's INR Aortic and Mechanical valve // Chronic Warfarin -Patient with known history of aortic and mitral mechanical valves, as well as associated CVA -On chronic warfarin with INR goal of 2.5-3.5. Follows up with anticoagulation clinic. -Hold warfarin in the setting of possible surgical intervention for ORIF -Placed on heparin drip until day of surgery -Monitor daily INR Acute on Chronic Kidney disease // Hx of CKD-IV -Follows with outpatient nephrology -Creatinine on ED labs elevated at 2.32 -Possible that this is related to the patient's fall and consequent hypovolemia -Follow-up with a.m. labs Hx of CVA - On ASA 81mg every other day HTN -Continue home meds DLP -Continue home meds pSVT -Continue home med Dispo: Med/Tele Diet: HH VTE ppx: Heparin drip Code Status: Full History of Present Illness Chief Complaint: Wrist fracture Primary Care Provider: Abigail Saldana MD Ms. Muñoz is a 73 y/o female with PMHx of mechanical aortic valve, mechanical mitral valve, chronic warfarin therapy (goal of 2.5-3.5), prior CVA, HTN, HLD, CKD-IV, pSVT, RLS, Hypothyroidism, and BIRDIE who came to the ED through EMS after she sustained a mechanical fall in the porch of her home. She was helping her son carry a mattress when she slipped/lost her footing and fell down with her wrist catching on the porch fence, resulting in her open left wrist fracture. Denies any preceding lightheadedness, dizziness, diaphoresis, palpitations, or any other symptom. She does not think she hit her head and denies any LOC. She does not have history of recurrent falls and is usually able to do her ADLs independently. After her fall, they called EMS and there they gave her IV morphine, 4 mg of IV Zofran, and 2g of Ancef. They noted a decrease in her oxygenation and started her on oxygen as well. On arrival to the ED, she received 1 dose of Zosyn and Tdap vaccine since she was not up to date. ortho (Dr. Jones) was consulted and they performed wound cleansing and fracture reduction under sedation. Labs/Imaging: CBC showing anemia with Hgb of 9.7, and no leukocytosis, platelets of 187, CMP with no electrolyte abnormalities, and Creatinine elevated from her baseline (2.32), and no other abnormality. CXR unremarkable, Left wrist X-ray showing fork deformity, Head CT without acute abnormalities, C-spine CT without acute abnormality. Allergies Allergy/AdvReac Type Severity Reaction Status Date / Time doxycycline Allergy Unknown CAN'T Verified 08/19/23 22:01 REMEMBER sulfamethoxazole Allergy Unknown CAN'T Verified 08/19/23 22:01 REMEMBER trimethoprim Allergy Unknown CAN'T Verified 08/19/23 22:01 REMEMBER Home Medications Medication Instructions Recorded Confirmed Type citalopram 20 mg tablet 20 mg PO QAM 07/31/18 08/19/23 History levothyroxine 50 mcg tablet 50 mcg PO QAM 07/31/18 08/19/23 History allopurinol 100 mg tablet 100 mg PO DAILY #90 tabs 07/19/23 08/19/23 Rx amlodipine 2.5 mg tablet 2.5 mg PO DAILY 07/19/23 08/19/23 History atorvastatin 40 mg tablet 40 mg PO DAILY 07/19/23 08/19/23 History isosorbide mononitrate 30 mg 30 mg PO QAM #90 tabs 07/19/23 08/19/23 Rx tablet,extended release 24 hr pregabalin 100 mg capsule (Lyrica) 100 mg PO PM #90 caps 07/19/23 08/19/23 Rx triamcinolone acetonide 0.1 % 1 applic topical BID PRN Skin 07/19/23 08/19/23 History topical cream Irritation pramipexole 0.125 mg tablet 0.125 mg PO QPM #30 tabs 08/02/23 08/19/23 Rx folic acid 1 mg tablet 1 mg PO DAILY #90 tabs 08/05/23 08/19/23 Rx aspirin 81 mg chewable tablet 81 mg PO Q OTHER DAY 08/12/23 08/19/23 History warfarin 2.5 mg tablet See Rx Instructions PO .COMPLEX 08/12/23 08/19/23 History metoprolol succinate 25 mg 25 mg PO BID 08/19/23 08/19/23 History tablet,extended release 24 hr Past Med/Surg History Medical History Paroxysmal SVT (supraventricular tachycardia) Chronic constipation RLS (restless legs syndrome) Chronic pain CKD (chronic kidney disease), stage III Hypertension CVA (cerebral vascular accident) BIRDIE (obstructive sleep apnea) Dyslipidemia Hypothyroidism Surgical History S/P total abdominal hysterectomy H/O neck surgery History of cholecystectomy H/O oophorectomy S/P repair of paraesophageal hernia History of total right hip replacement S/P lumbar fusion H/O hemorrhoidectomy Hx of aortic valve replacement, mechanical H/O mitral valve replacement with mechanical valve Family History Father Heart disease Mother Stroke Social History Smoking Status: Never smoker Second Hand Exposure: No; Do You Dip or Chew Tobacco: No; Hx Alcohol Use: No Hx Substance Use: No Preferred Language: Turkish Communication Ability: Effective Visual Impairment: No Limitations Hearing Ability: Hard of Hearing 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 Beliefs That Will Affect Care: None marital status: Current Living Situation: Spouse and Family Current Living Situation Comment: Lives with and their son current occupational status: retired Feels Safe at Home: Yes Childhood Exposure to Second-Hand Smoke: No Diet: regular Diet Comment: regular Dental Care, Regularly: No Physical Activity Frequency: Does not Exercise Seatbelt Use: always Sunscreen Use: No Assistive Devices: None Review of Systems Review of Systems: As per HPI Physical Exam Physical Exam: GENERAL: Awake alert oriented in all spheres, afebrile, no acute distress HEAD: Atraumatic, normocephalic EYES: EOM intact THROAT: Normal to visual CHEST: Symmetric chest expansion with respirations, no obvious deformity CARDIO: Regular rate and rhythm PULMONARY: Clear to auscultation bilaterally, normal respiratory effort, no respiratory distress GI: Soft, nondistended, nontender : No Garcia EXTREMITIES: Bilateral lower extremities without obvious deformities, no swelling in bilateral lower extremities, no calf tenderness bilaterally, right upper extremity without obvious deformity, left upper extremity covered with soft cast SKIN: No rashes Results & Data Results & Data Vital Signs (Past 12 Hours) Vital Signs Temp Pulse Resp BP Pulse Ox O2 Del Method 08/19/23 19:55 37.4 C 64 18 128/65 99 Room Air 08/19/23 19:51 68 Supervising Physician Co-Signing Physician Notes Attending addendum: I have physically seen this patient, have supervised the medical residents activities, and agree with the H&P unless as otherwise noted. Assessment and Plan: Open distal left radial fracture- Status post mechanical fall while carrying a mattress reduction by orthopedic surgery while in the ED MRSA swab Zosyn 4.5 g IV every 8 hours Single dose of vancomycin in the ED Hold warfarin and aspirin Aortic mechanical valve- On chronic warfarin in the outpatient setting, with INR 1.6 in the ED Hold warfarin and placed on heparin drip for potential surgical procedure Acute kidney injury superimposed on CKD- Creatinine 2.32, with most recent baseline 12-20 at 1.90 IV fluid rehydration as noted, recheck laboratories in a.m. Remaining orders and notations as noted
--- NOTE | 2023-08-19 22:38 | Orthopedic Consultation ---
Date of Consultation August 19, 2023 Assessment & Plan (1) Distal radius fracture, left: (2) Open fracture of distal end of radius: Given the concern for open fracture recommendations for irrigation debridement. Given that she has anticoagulated state and INR a few days ago was 2.8 I feel that is a relative contraindication to surgical treatment. Will plan for bedside I&D as well as close reduction. Procedure note Left wrist was prepped with Betadine after consult date sedation by the emergency department I open the wound gently with sterile Adson's. I gently debrided skin and subcutaneous tissue. I then irrigated 500 L of normal saline in the wound. The wound did look very clean. I then performed closed reduction with longitudinal traction and a standard reduction maneuver. This resulted in good alignment of the distal radius and resulted in neutral angulation on lateral radiograph. I then placed a sugar-tong splint. Patient will be admitted to hospitalist service for monitoring of INR. It is likely she will benefit from surgical treatment with ORIF. Will wait for her INR to be normalized prior to surgical treatment. It is likely she would need to be bridged with heparin prior to surgical treatment. Appreciate input from the hospitalist service as to whether or not she is cleared medically for surgery given history of 2 heart valves. History of Present Illness Reason for Consultation: Left wrist deformity Requesting Physician: ER physician History of Present Illness This is a 73-year-old female who sustained a fall from standing height when she tripped on stairs. She fell on outstretched left hand has complaints of pain in the left distal radius with open wound over the volar left wrist Allergies Allergy/AdvReac Type Severity Reaction Status Date / Time doxycycline Allergy Unknown CAN'T Verified 08/19/23 22:01 REMEMBER sulfamethoxazole Allergy Unknown CAN'T Verified 08/19/23 22:01 REMEMBER trimethoprim Allergy Unknown CAN'T Verified 08/19/23 22:01 REMEMBER Home Medications Medication Instructions Recorded Confirmed Type citalopram 20 mg tablet 20 mg PO QAM 07/31/18 08/19/23 History levothyroxine 50 mcg tablet 50 mcg PO QAM 07/31/18 08/19/23 History allopurinol 100 mg tablet 100 mg PO DAILY #90 tabs 07/19/23 08/19/23 Rx amlodipine 2.5 mg tablet 2.5 mg PO DAILY 07/19/23 08/19/23 History atorvastatin 40 mg tablet 40 mg PO DAILY 07/19/23 08/19/23 History isosorbide mononitrate 30 mg 30 mg PO QAM #90 tabs 07/19/23 08/19/23 Rx tablet,extended release 24 hr pregabalin 100 mg capsule (Lyrica) 100 mg PO PM #90 caps 07/19/23 08/19/23 Rx triamcinolone acetonide 0.1 % 1 applic topical BID PRN Skin 07/19/23 08/19/23 History topical cream Irritation pramipexole 0.125 mg tablet 0.125 mg PO QPM #30 tabs 08/02/23 08/19/23 Rx folic acid 1 mg tablet 1 mg PO DAILY #90 tabs 08/05/23 08/19/23 Rx aspirin 81 mg chewable tablet 81 mg PO Q OTHER DAY 08/12/23 08/19/23 History warfarin 2.5 mg tablet See Rx Instructions PO .COMPLEX 08/12/23 08/19/23 History metoprolol succinate 25 mg 25 mg PO BID 08/19/23 08/19/23 History tablet,extended release 24 hr Patient History Medical History Paroxysmal SVT (supraventricular tachycardia) Chronic constipation RLS (restless legs syndrome) Chronic pain CKD (chronic kidney disease), stage III Hypertension CVA (cerebral vascular accident) BIRDIE (obstructive sleep apnea) Dyslipidemia Hypothyroidism Surgical History S/P total abdominal hysterectomy H/O neck surgery History of cholecystectomy H/O oophorectomy S/P repair of paraesophageal hernia History of total right hip replacement S/P lumbar fusion H/O hemorrhoidectomy Hx of aortic valve replacement, mechanical H/O mitral valve replacement with mechanical valve Family History Father Heart disease Mother Stroke Social History Smoking Status: Former smoker Second Hand Exposure: No; Do You Dip or Chew Tobacco: No; Hx Alcohol Use: No Hx Substance Use: No Preferred Language: Guamanian Communication Ability: Effective Visual Impairment: No Limitations Hearing Ability: Hard of Hearing 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 There is a volar wound about 3 mm over the proximal aspect of the wrist flexion crease. She can flex and extend her digits, but nerve or muscular exam is limited secondary to discomfort. She is a small amount of bleeding from the wound, but no significan t active bleeding. Her fingers are warm and well-perfused. Results & Data Vital Signs (Past 12 Hours) Vital Signs Temp Pulse Resp BP Pulse Ox O2 Del Method 08/19/23 19:55 37.4 C 64 18 128/65 99 Room Air 08/19/23 19:51 68 Laboratory Results INR 1 week ago was 2.8 Diagnostic Findings Independent review reviewed AP lateral and oblique of the left wrist that does show 100% displaced distal radius fracture with shortening and dorsal angulation. Comminution is seen.
--- NOTE | 2023-08-19 23:22 | Emergency Department Note ---
Pre Sedation Assessment Vital Signs Temp Pulse Resp BP Pulse Ox O2 Del Method O2 Flow Rate 08/19/23 22:40 60 12 99 Nasal Cannula 2 08/19/23 22:38 110/60 08/19/23 22:38 59 L 12 98 Nasal Cannula 2 08/19/23 22:36 104/50 L 08/19/23 22:36 60 11 L 93 Nasal Cannula 2 08/19/23 22:35 60 10 L 96 08/19/23 22:34 102/53 L 08/19/23 22:34 61 10 L 99 Nasal Cannula 2 08/19/23 22:32 62 11 L 98 Nasal Cannula 2 08/19/23 22:32 92/50 L 08/19/23 22:30 102/47 L 08/19/23 22:30 59 L 10 L 98 Nasal Cannula 2 08/19/23 22:28 59 L 11 L 99 Nasal Cannula 2 08/19/23 22:28 11 L 93/50 L 08/19/23 22:26 81/44 L 08/19/23 22:26 59 L 11 L 98 Nasal Cannula 2 08/19/23 22:25 60 10 L 98 08/19/23 22:24 88/41 L 08/19/23 22:24 60 11 L 98 Nasal Cannula 2 08/19/23 22:22 92/47 L 08/19/23 22:22 62 12 98 08/19/23 22:20 61 12 98 Nasal Cannula 2 08/19/23 22:20 83/48 L 08/19/23 22:18 84/50 L 08/19/23 22:18 61 11 L 97 Nasal Cannula 2 08/19/23 22:15 100/54 L 08/19/23 22:15 65 13 100 Nasal Cannula 2 08/19/23 22:11 124/58 L 08/19/23 22:11 65 16 99 08/19/23 22:10 65 14 99 Nasal Cannula 2 08/19/23 22:05 63 15 99 Nasal Cannula 2 08/19/23 22:00 64 Nasal Cannula 2 08/19/23 21:55 65 14 08/19/23 21:50 65 12 08/19/23 21:45 65 23 98 08/19/23 19:55 37.4 C 64 18 128/65 99 Room Air 08/19/23 19:51 68 Cardiovascular + regular rate + S1 normal, + S2 normal and + murmur + capillary refill normal Respiratory normal respiratory effort, lungs clear to auscultation + clear to auscultation bilaterally Pre-Sedation Airway Assessment Smoking Status: Former smoker Hx Sleep Apnea: Yes Short, Thick Neck: No Thyromental Distance: > or= 3.5 Finger Breadths Oral Cavity: + WNL Mallampati Class: III ASA: ASA3 NPO Status Date of Last Intake of Fluids: 08/19/23 Time of Last Intake of Fluids: 12:00 Date of Last Intake of Solid Food: 08/19/23 Time of Last Intake of Solid Foods: 12:00 Procedure Planning Contraindications for Sedation: none Notes The planned sedation has been discussed with the patient. Informed Consent was obtained. I have identified the patient, determined the appropriateness of sedation and have assessed the patient immediately prior to the procedure. All medicine(s) and interventions are by my order.
--- NOTE | 2023-08-19 23:24 | Emergency Department Note ---
Post Sedation Assessment Vital Signs Temp Pulse Resp BP Pulse Ox O2 Del Method O2 Flow Rate 08/19/23 22:40 60 12 99 Nasal Cannula 2 08/19/23 22:38 110/60 08/19/23 22:38 59 L 12 98 Nasal Cannula 2 08/19/23 22:36 104/50 L 08/19/23 22:36 60 11 L 93 Nasal Cannula 2 08/19/23 22:35 60 10 L 96 08/19/23 22:34 102/53 L 08/19/23 22:34 61 10 L 99 Nasal Cannula 2 08/19/23 22:32 62 11 L 98 Nasal Cannula 2 08/19/23 22:32 92/50 L 08/19/23 22:30 102/47 L 08/19/23 22:30 59 L 10 L 98 Nasal Cannula 2 08/19/23 22:28 59 L 11 L 99 Nasal Cannula 2 08/19/23 22:28 11 L 93/50 L 08/19/23 22:26 81/44 L 08/19/23 22:26 59 L 11 L 98 Nasal Cannula 2 08/19/23 22:25 60 10 L 98 08/19/23 22:24 88/41 L 08/19/23 22:24 60 11 L 98 Nasal Cannula 2 08/19/23 22:22 92/47 L 08/19/23 22:22 62 12 98 08/19/23 22:20 61 12 98 Nasal Cannula 2 08/19/23 22:20 83/48 L 08/19/23 22:18 84/50 L 08/19/23 22:18 61 11 L 97 Nasal Cannula 2 08/19/23 22:15 100/54 L 08/19/23 22:15 65 13 100 Nasal Cannula 2 08/19/23 22:11 124/58 L 08/19/23 22:11 65 16 99 08/19/23 22:10 65 14 99 Nasal Cannula 2 08/19/23 22:05 63 15 99 Nasal Cannula 2 08/19/23 22:00 64 Nasal Cannula 2 08/19/23 21:55 65 14 08/19/23 21:50 65 12 08/19/23 21:45 65 23 98 08/19/23 19:55 37.4 C 64 18 128/65 99 Room Air 08/19/23 19:51 68 Recovery Score Activity: Moves 4 extremities Respiration: Deep Breath/Cough Consciousness: Fully Awake Oxygen Saturation: > 92% On Room Air Discharge Sedation Unexpected Event: None Post Sedation Plan On clinical assessment, the patient appears to have tolerated the sedation without complications. Patient is recovering as anticipated. Patient will continue to be monitored by nursing and may be discharged when sedation discharge criteria are met per below protocol. Upon Completions of procedure up to 15 minutes continue every 5 minute vital signs and the P.A.R. score; then discharge to a Phase I or Fast Track to Phase II per the following guidelines: * Discharge Patient to appropriate Phase II area if PAR is 8 or greater or return to pre- procedure baseline. The post - procedure orders will be as directed. * If PAR score is less than 8 or not return to pre-procedure baseline then patient will follow Phase I monitoring till PAR is reached for Phase II. The Phase I may be done in procedure room or may call to secure a Phase I area. * If naloxone or flumazenil are used for reversal, hold in Phase I for continued monitoring from when last reversal dose was given for a minimum of 60 minutes or longer pending the nurse and/or physician discretion of patient condition before discharge to Phase II. Please call the Sedation Physician to re-evaluate and complete post-note for discharge to Phase II area. Do NOT discharge from procedure sedation or Phase 1 until post- sedation evaluation note is complete by procedure /sedation MD Sedation Discharge Instructions to be given to the patient at discharge to home. Sedation Data Time Out Team Members Agree on the Following: Correct Patient, Correct Procedure, Correct Site-Side and Allergies Verified
[2023-08-19] MEDS ORDERED: Heparin IV Adult Wt-Based Standard *NO* INITIAL Bolus Protocol IV STA (23:26)
[2023-08-19] MEDS ORDERED: VANCOMYCIN CONSULT ACTIVE PRN (23:26)
[2023-08-19] MEDS ORDERED: TRIAMCINOLONE ACET 0.1% CR 15 GM TUBE TOP PRN (23:26)
[2023-08-20] MEDS: HEPARIN SODIUM/DEXTROSE 25,000 UNITS/500 ML BAG IV SCH (00:26)
[2023-08-20] MEDS: VANCOMYCIN HCL 1,250 MG in SODIUM CHLORIDE 0.9% 250 ML IV STA (01:59)
[2023-08-20] MEDS: LACTATED RINGER'S 1,000 ML IV SCH (02:00)
[2023-08-20] MEDS: XYLOCAINE 1%/SOD BICARB 20 ML VIAL INFIL ONE (02:20)
[2023-08-20] MEDS: PROPOFOL IV EMULSION 10 MG/ML 20 ML VIAL IV ONE (02:21)
--- NOTE | 2023-08-20 07:04 | XRay Report ---
XR shoulder LT min 2V routine CLINICAL HISTORY: fall TECHNIQUE: 2 views of the left shoulder were obtained. Comparison: Comparison is made to left shoulder radiograph 11/08/2013 FINDINGS: There is no evidence of an acute fracture. Joint spaces are well-preserved. The overlying soft tissue s are unremarkable. Please see chest radiograph for findings of the chest. IMPRESSION: No evidence of acute osseous injury. ACT 112: Negative or not required by law. Electronically signed by: Aroldo Coronado M.D. 08/20/2023 7:03 AM
--- NOTE | 2023-08-20 07:04 | XRay Report ---
XR chest 1V portable CLINICAL HISTORY: fall TECHNIQUE: Single frontal radiograph of the chest was obtained. Comparison: Comparison is made to chest radiograph 05/24/2020 FINDINGS: Median sternotomy wires are unchanged. Cardiomegaly is noted. The aortic arch is calcified. The lungs are clear. No evidence of pleural effusion or pneumothorax. IMPRESSION: No acute chest disease. ACT 112: Negative or not required by law. Electronically signed by: Aroldo Coronado M.D. 08/20/2023 7:02 AM
[2023-08-20 07:23] LABS: Basophils # (auto) 0.01 K/uL (0.00-0.20); Basophils % (auto) 0.1 %; Eosinophils % (auto) 3.8 %; Hematocrit (blood only) 28.6 % (37.0-47.0); Hemoglobin 9.1 g/dl (12.0-16.0); Immature Granulocytes # (auto) 0.03 K/uL (0.01-0.20); Immature Granulocytes % (auto) 0.4 %; Lymphocytes # (auto) 1.21 K/uL (1.20-3.40); Lymphocytes % (auto) 15.2 %; Mean Corpuscular Hemoglobin 31.2 pg (25.0-34.0); Mean Corpuscular Hgb Conc 31.8 g/dL (32.0-36.0); Mean Corpuscular Volume 97.9 fL (80.0-100.0); Mean Platelet Volume 11.2 fL (9.4-12.4); Monocytes # (auto) 0.81 K/uL (0.11-0.59); Monocytes % (auto) 10.2 %; Neutrophils % (auto) 70.3 %; Platelet Count 164 K/uL (130-400); RDW Coefficient of Variation 15.1 % (11.5-14.5); RDW Standard Deviation 54.6 fL (36.4-46.3); Red Blood Count 2.92 M/uL (4.20-5.40); White Blood Count 7.96 K/ul (4.8-10.8)
[2023-08-20 07:36] LABS: Calcium 8.3 mg/dl (8.6-10.3); Potassium 4.5 mmol/L (3.5-5.1)
--- NOTE | 2023-08-20 07:38 | XRay Report ---
XR wrist LT min 3V routine HISTORY: 73 years-old Female fall, deformity, open wound acute left wrist pain status post fall COMPARISON: None TECHNIQUE: 3 views of the left wrist FINDINGS: Acute and displaced ulnar styloid fracture. Acute, comminuted, intra-articular, impacted distal radia l fracture demonstrates 1.8 cm dorsal displacement with mild apex volar angulation. Probable open com ponent with continuous gas and soft tissue swelling. No dislocation identified. Mild to moderate oste oarthritis with demineralized appearance of the bones. IMPRESSION: 1. Acute, comminuted, impacted, displaced and angulated distal radial fracture with probable open com ponent. 2. Acute nondisplaced ulnar styloid fracture. ACT 112: Negative or not required by law. The above report was generated using voice recognition software. It may contain grammatical, syntax o r spelling errors. Electronically signed by: Donovan Clinton M.D. 08/20/2023 7:36 AM
--- NOTE | 2023-08-20 07:39 | Fluoroscopy Report ---
FL wrist LT 2V CLINICAL HISTORY: POST REDUCTIONacute left distal radial fracture COMPARISON STUDY: Radiographs 08/19/2023 FLUOROSCOPY TIME: 3.48 seconds FLUOROSCOPY IMAGES: 4 EXPOSURE DOSE: 0.0901 mGy FINDINGS: Status post reduction and casting of the acute distal radial fracture which demonstrates im proved alignment. Mild persistent radial displacement of the distal radial fracture with persistent s oft tissue swelling. IMPRESSION: Fluoroscopic assistance as above. ACT 112: Negative or not required by law. Electronically signed by: Donovan Clinton M.D. 08/20/2023 7:38 AM
[2023-08-20 07:40] LABS: ANTI-Xa, UFH(UnfractionatedHep 0.44 IU/ml (0.3-0.7)
[2023-08-20 07:42] LABS: BUN Creatinine Ratio 13.7 (10-20); Creatinine Clr Calc Pharmacy 15.7 ml/min; Est GFR (African American) 22.3 ml/min; Est GFR (Non-African American) 19.3 ml/min
[2023-08-20 07:44] LABS: INR 1.6 (0.9-1.1)
--- OUTSIDE RECORDS SUMMARY | 2023-08-20 07:58 | External Medical Summary | Summary of Care ---
Author Name Unknown Organization [facility] Address [address] [place] [address] Phone [phone] Care Team Providers Care Sign Painter Apprentice Name Role Phone Gomez Bass MD Primary Care Provide r Reason for Visit * Reason Comments Left Message Encounter Details Date Type Department Care Team (Late st Contact Info) Description 08/12/2023 4:15 PM [facility] Pharm[facility] Pharm[facility], [facility] [address], [place] [phone] [facility] [address] [place], [place] [phone] History of mitral valve replacement with mechanical valve* Allergies Active Allergy Reactions Criticality Noted Date Comments Doxycycline Nausea/vomiting Low 01/29/2002 vomiting Sulfamethoxazole W/Trimethop rim (Co-Trimoxazole) Nausea/vomiting 05/05/2008 documented as of this encounter (statuses as of 08/12/2023) Medications Medication Sig Dispensed Refills Start Date End Date Status Colestipol HCl 1 GM Oral Tablet Take 2 Tabs by mouth 2 times a day. 360 Tab 3 1 Active Atorvastatin Calcium 40 MG Oral Tablet (Lipitor) Take 1 Tablet by mouth daily. 90 Tablet 3 3 Active Isosorbide Mononitrate ER 30 MG Oral Tablet Extended Release 24 Hour (Imdur)Indications:HT N, goal below 140/90,PSVT (paroxysmal supraventricular tachycardia) Take 1 Tablet by mouth in the morning. 90 Tablet 3 3 Active Triamcinolone Acetonide 0.1 % External Cream (Aristocort)Indicatio ns:Dyshidrotic hand dermatitis Apply topically to affected area 2 times a day. 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 30 Tablet 11 3 Active Folic Acid 1 MG Oral Tablet TAKE 1 TABLET BY MOUTH EVERY DAY IN THE MORNING 90 Tablet 1 3 Active Metoprolol Succinate ER 25 MG Oral Tablet Extended Release 24 Hour (toPROL XL)Indications:PSVT (paroxysmal supraventricular tachycardia),Rheumati c heart disease,History of mitral valve replacement with mechanical valve,History of mechanical aortic valve replacement TAKE 1 TABLET IN THE MORNING AND TAKE 1 TABLET IN THE EVENING 180 Tablet 3 3 Active Warfarin Sodium 2.5 MG Oral Tablet (Coumadin)Indications :History of mitral valve replacement with mechanical valve,History of mechanical aortic valve replacement,Cerebrova scular disease, arteriosclerotic, post-stroke,Anticoagu lation management encounter,[facility] current use of anticoagulant therapy TAKE 1/2 TO 1 TABLET DAILY OR DIRECTED BY ANTICOAGULATION CLINIC 65 Tablet 1 4 Active Pregabalin 100 MG Oral Capsule (Lyrica)Indications:P olyneuropathy TAKE 1 CAPSULE BY MOUTH EVERY DAY IN THE MORNING , AT NOON, AND BEFORE BEDTIME 90 Capsule 2 4 Active documented as of this encounter (statuses as of 08/12/2023) Active Problems Problem Noted Date Diagnosed Date Unspecified dementia, mild, without behavioral disturbance, psychotic disturbance, mood disturbance, and anxiety 10/22/2022 Chronic kidney disease, stage 4 (severe) 022 Overview: Per CKD protocol Hypertensive heart and kidne y disease without heart failure and with stage 4 chronic kidney disease 04/25/2020 Overview: Per CKD protocol Hyperparathyroidism due to renal insufficiency 0 01/14/2020 Paroxysmal atrial tachycardia 09/10/2018 Status post right hip replacement 10/11/2017 History of mitral valve replacement with mechani tyra valve 06/21/2015 History of mechanical aortic valve replacement 0 06/21/2015 Dyslipidemia, goal LDL below 100 05/24/2009 Overview: Per Lipid Taxonomy. HTN, goal below 140/90 04/22/2009 Overview: Modified per HTN Taxonomy. CEREBROVASCULAR DZ, POST-STROKE 09/28/2008 Overview: Modified per CVA protocol #8 Obstructive sleep apnea syndrome 09/02/2007 Overview: 02/2014 -- pt returned CPAP 2013 PSG -- AHI 7.9, CPAP 5-15 cwp, AHP 01/16/10 -- CPAP 11cwp through AHP, full face mask 02/08/10 -- D/C CPAP Persistent insomnia 05/05/2007 ADVANCE DIRECTIVE INFORMATION 09/20/2005 Overview: No, Advance Directive brochure offered , patient declined. Pulmonary hypertensive arterial disease 09/19/19 03 Acquired hypothyroidism 08/06/2002 RHEUMATIC HEART DIS NOS 12/31/2000 SBE (subacute bacterial endocarditis) prophylaxi s candidate documented as of this encounter (statuses as of 08/12/2023) Resolved Problems Problem Noted Date Diagnosed Date Resolved Date Kidney disease, chronic, sta ge IV (GFR 15-29 ml/min) 10/10/2021 10/26/2021 Chronic kidney disease, stage 3b 10/25/2020 10/26/2021 Overview: Per CKD protocol Mild dementia 01/14/2020 10/22/2022 Memory loss 09/10/2018 02/13/2021 Hypertensive kidney disease with chronic kidney disease stage III 09/09/2018 10/09/2018 Hypertensive heart/kidney di sease without HF and with CKD stage III 02/21/2018 04/28/2020 Overview: Per CKD protocol Paraesophageal hiatal hernia 02/01/2012 02/21/2018 Hiatal hernia 01/17/2012 04/29/2015 GERD (gastroesophageal reflux disease) 10/02/2011 02/21/2018 Genetic Sleep Disorder [facility] Other*[id number] 05/22/2011 01/24/2016 ACUTE SINUSITIS 07/03/2010 04/29/2015 Esophageal reflux 07/03/2010 04/29/2015 Accidental poisoning by [place]-hand tobacco smoke 07/03/2010 02/21/2018 Overview: ICD-10 update of inactive term Irritable bowel syndrome 03/28/201012/2017 KIDNEY DZ,CHRONIC (GFR 30-59) STAGE III 01/05/2010 10/27/2020 Overview: Per CKD Protocol, #1 Abdominal pain, left lower quadrant 12/26/2009 04/29/2015 Ulcerative colitis 10/20/2009 8 Overview: Focal active colitis seen at the [facility] on colonoscopy. Ulcers found on colonoscopy in the ascending and transverse colon. Abnormal levels of other serum enzymes 08/31/2009 04/29/2015 Overview: ICD-10 update of inactive term Chronic diarrhea 08/30/2009 02/21/2018 Mixed dyslipidemia 04/13/2009 9 Overview: Per Lipid Taxonomy. Heart valve replaced 02/25/2009 016 Overview: ICD-10 update of inactive term Mild cognitive impairment 01/31/2009 COPD, mild 09/27/2008 10/21/2014 Overview: Per COPD Protocol #24. Last PFT - 2009-09-23 Hypomagnesemia 01/23/2008 04/29/2015 Menopause 05/05/2007 04/29/2015 Lateral epicondylitis 08/23/20042014 Tricuspid valve regurgitation 09/18/2002 02/21/2018 Tricuspid valve disease 09/18/2002 09/0 12/2017 LUMB-LUMBOSAC DISC DEGEN 08/06/200212/2017 BENIGN HYPERTENSION 01/29/2002 04/22/20 09 Overview: Modified per HTN Taxonomy. Mitral stenosis 01/29/2002 07/30/2017 Mitral valve regurgitation 01/29/2002 0 07/30/2017 Mitral valve disorder 01/29/20022014 RHEUMATIC AORTIC INSUFF 01/29/200207/18 Vertigo 08/05/2001 04/29/2015 Cervicalgia 08/05/2001 04/29/2015 CVA 12/31/2000 09/30/2008 Overview: Modified per CVA protocol #8 ANEMIA NOS 10/02/2000 04/29/2015 HTN KIDNEY DZ, BENIGN, STAGE 1-4 04/29/2015 COPD, severity to be determined 06/14/2011 Cardiomegaly 04/29/2015 Diverticulosis of colon 12/2017 Diarrhea 04/29/2015 documented as of this encounter (statuses as of 08/12/2023) Immunizations Name Administration Dates Next Due COVID-19 mRNA, LNP-s, No Pre serve, 2-Dose Series (T[place]ridge) 04/14/2021,03/23/2021 H1N1 2009 Influenza, IM 09/14/2009 Hepatitis B, 20+ yrs 07/29/2023(Deferred: Done E lsewhere) Pneumococcal Conjugate Vacc, 13 Valent (Prevnar) 04/29/2015 Pneumococcal Polysaccharide PPV23 (Pneumovax) 05/08/2016,04/07/2007 Season Influenza, Quad, PF, Adjuvanted, 65+ Yrs, IM (FLUAD) 04/26/2020 Seasonal Influenza, PF, 6 M & above, IM , (FluLaval or Fluzone) 02/21/2018,04/29/2017 Seasonal Influenza, Quadriva lent Hd (Fluzone Hd) 2022,04/11/2021 Seasonal Influenza, Quadriva lent, No Preserve, IM 05/08/2016,04/29/2015 Seasonal Influenza, Split, I IV3, With Preserve, Inj 03/09/2014,03/12/2013,03/21/2012,03/14,08/08/2010,03/07/2009,04/07/2008 ,04/07/2007,03/22/2006 Seasonal Influenza, Trivalen t, Adjuvanted, 65+ yrs 02/23/2019 TD - Tetanus/Diptheria (ADULT) 06/17/2004 TDAP (age 11 and older)(Adacel) 10/17/2010 Varicella Zoster Vaccine (Adult) 07/21/2012 documented as of this encounter Social History Tobacco Use Types Packs/Day Years Used Date Smoking Tobacco: Never Smokeless Tobacco: Never Alcohol Use Standard Drinks/Week Comments No 0 (1 standard drink = 0.6 oz pur e alcohol) PHQ-2 Answer Date Recorded PHQ Adult Total Score 0 10/10/2021 Sex and Gender Information Value Date Recorded Sex Assigned at Not on file Gender Identity Not on file Sexual Orientation Not on file Job Start Date Occupation Industry Not on file Not on file Not on file documented as of this encounter Progress Notes * Heather Manzo plumbing designer - 08/12/2023 12:48 PM EST Patient Phone Numbers Called patient, no answer, phone picked up then got busy signal. Patient moved to [facility] Cardio previously. Per [facility], to check with patient to be sure she will no longer be seeing [facility] Nephro and is no longer a [facility] patient, for possible d/c. Attempt 1 Follow up again in 1 week. Thank you, Heather Manzo Hydraulic Specialist 08/12/2023,12:49 PM\ documented in this encounter Plan of Treatment Upcoming Encounters Date Type Department Care Team (Late st Contact Info) Description 08/16/2023 9:20 AM EST Nurse Only Ancillary [address] [place] [phone] [place] Nurse [address] [place] [phone] 08/19/2023 4:15 PM EST Pharmacy Pharmacy, [facility] [address] [place] [address] [facility] [address] [facility] [place] [address] 01/16/2024 9:20 AM EDT Nurse Only Ancillary [address] [place] [phone] Nurse [place] [address] [place] [phone] 03/23/2024 3:00 PM EDT Office Visit Nephrology [address] [place] [address] Zemaitis, Tran Fraser PA-C [address] [facility] [place] [phone] Scheduled Procedures Name Priority Associated Diagnoses Date/Ti me COLONOSCOPY FLEXIBLE PROXIMA L DIAGNOSTIC Recall Screening for malignant neoplasm of colon Health Maintenance Due Date Last Done Comments Cologuard 1995 Sigmoidoscopy 1995 Fecal Occult Blood Test 07/13/2012 07/13/19 12, 07/20/2009, 10/08/2000, Additional history exists Zoster Vaccines (2 of 3) 09/15/2012 07/21/2012 DTaP,Tdap,and Td Vaccines (2 - Td or Tdap) 10/17/2020 10/17/2010, 06/17/2004 Depression Screening 10/10/2022 10/10/2021 Mammogram 09/26/2023 09/25/2022, 04/11/2021, 09/07/2020, Additional history exists GFR 11/28/2023 05/29/2023, 01/15, 12/24/2022, Additional history exists TSH 12/25/2023 12/24/2022, 05/18, 05/04/2022, Additional history exists PTH 02/02/2024 02/01/2023, 04/17, 03/02/2022, Additional history exists Phosphate 02/02/2024 02/01/2023, 12/15, 05/04/2022, Additional history exists Hgb 05/29/2024 05/29/2023, 01/15, 12/24/2022, Additional history exists Albumin/Creatinine Ratio 07/11/2024 024, 08/06/2022, 03/02/2022, Additional history exists Nephrology Referral 07/11/2024 07/11/2023, 07/09/2013, 06/04/2006 Colonoscopy 11/25/2028 11/25/2018, 11/15, 12/19/2012, Additional history exists Colorectal Cancer Screening 11/25/2028 Pneumococcal Vaccine: 65+ Years Completed 05/08/2016, 04/29/2015, 04/07/2007 COVID-19 Vaccine Completed 04/13/2023, , 03/23/2021 Influenza Vaccine (FLU shot) Completed , 2022, 04/11/2021, Additional history exists GARDASIL-HPV IMMUNIZATION SERIES Aged Out No longer eligible based on patient's age to complete this topic Hepatitis B Aged Out No longer eligi ble based on patient's age to complete this topic MENINGOCOCCAL (MENACTRA/MENVEO) Aged Out No longer eligible based on patient's age to complete this topic documented as of this encounter Medical Devices Implanted Type Area Care Process Manager Device Identifier Shelf Expiration Date Model / Serial / Lot Alloderm 2x4 Sheet [id number] [id number]) - [id number] Implanted:Qty : 8 on 04/21/2012 at [place] [facility] Tissue - Human N/A: Esophagus [employer] 05/16/2013 [id number] / / [id number] documented as of this encounter Visit Diagnoses Diagnosis History of mitral valve replacement with mechanical valve- Primary Heart valve replaced by other means documented in this encounter Advance Directives Latest Code Status on File Code Status Date Activated Date Inactivated Comments Full Code 04/21/2012 5:45 AM 04/23/2012 7:39 PM This order reflects the patients wishes and were consensually agreed upon. Care Teams Sign Painter Apprentice Relationship Specialty Start Date End Date Gomez Bass MD [address] [place] [address] [place] [phone] PCP - General Family Medicine 07/05/22 documented as of this encounter
[2023-08-20] MEDS: ceFAZolin 2000MG 2,000 MG/15 ML SYR IV SCH (08:11)
--- NOTE | 2023-08-20 08:26 | Communication Note ---
Date of Service: August 20, 2023 Radiographs show adequate reduction. INR of 1.6 today. Tentatively plan for surgical treatment once INR is below 1.6 and is normalized. Would anticipate surgical treatment tomorrow (Saturday) afternoon if INR is normalized. Patient may have a diet today.
[2023-08-20] MEDS: LEVOTHYROXINE SODIUM 50 MCG TABLET PO SCH (08:45)
[2023-08-20] MEDS: ATORVASTATIN 40 MG TAB PO SCH (08:46)
[2023-08-20] MEDS: CITALOPRAM 20 MG TAB PO SCH (08:46)
[2023-08-20] MEDS: ISOSORBIDE MONO EXTENDED REL 30 MG TABCR PO SCH (08:47)
[2023-08-20] MEDS: FOLIC ACID 1 MG TAB PO SCH (08:47)
[2023-08-20] MEDS: amLODIPine BESYLATE 5 MG TAB PO SCH (08:48)
[2023-08-20] MEDS: METOPROLOL SUCC 25MG EXT REL TAB PO SCH (08:53)
[2023-08-20] MEDS: allopurinoL 100 MG TAB PO SCH (08:53)
[2023-08-20 11:33] LABS: ANTI-Xa, UFH(UnfractionatedHep 0.47 IU/ml (0.3-0.7)
[2023-08-20] MEDS: ACETAMINOPHEN 1,000 MG/100 ML VIAL IV PRN (12:30)
[2023-08-20] MEDS: MoRPHine SULFATE 2 MG/ML CARP IV PRN (12:52)
--- NOTE | 2023-08-20 13:57 | Hospitalist Progress Note ---
Date of Service August 20, 2023 Assessment & Plan (1) Left wrist fracture: Plan: -Left wrist fracture that came as a result of a mechanical fall after patient slipped while trying to carry a mattress in her front porch -No preceding symptoms such as palpitations, chest pain, lightheadedness, dizziness, diaphoresis, or any other symptom -Patient able to perform ADLs independently prior to this -Given a total of 10 mg of morphine in the EMS, as well as Ancef. Also given Zosyn in the ED -Left wrist x-ray performed in the ED showing fork deformity -Head CT and C-spine CT negative for acute abnormalities -Chest x-ray unremarkable -Ortho consulted and seen patient in the ED Irrigated and debrided skin and subcutaneous tissue at patient's bedside Close reduction performed under sedation Surgical treatment with ORIF tentatively scheduled for 08/21/2023 depending on patient's INR (2) CKD (chronic kidney disease) stage 4, GFR 15-29 ml/min: Plan: -Acute on chronic kidney disease -Follows with outpatient nephrology -Creatinine on ED labs elevated at 2.32 -Possible that this is related to the patient's fall and consequent hypovolemia -Follow-up with a.m. labs (3) Hx of aortic valve replacement, mechanical: Plan: -Patient with known history of aortic and mitral mechanical valves, as well as associated CVA -On chronic warfarin with INR goal of 2.5-3.5. Follows up with anticoagulation clinic. -Hold warfarin in the setting of possible surgical intervention for ORIF -Placed on heparin drip until day of surgery -Monitor daily INR (4) H/O mitral valve replacement with mechanical valve: Plan: As above (5) History of CVA (cerebrovascular accident): Plan: - On ASA 81mg every other day (6) Paroxysmal SVT (supraventricular tachycardia): Plan: -Continue home meds (7) Dyslipidemia: Plan: -Continue home meds (8) Hypertension: Plan: -Continue home meds Plan Diet: Heart Healthy VTE ppx: Heparin drip Code Status: Full Admission and Anticipated Discharge Date Admission Date: August 19, 2023 Subjective Patient seen and evaluated at bedside in ED. She had a wound cleansing and closed fracture reduction under sedation in the ED last night with Dr. Jones. Patient reports pain in her left wrist, which is being managed by scheduled acetaminophen, oxycodone p.o. as needed, and morphine IV as needed. Patient is scheduled to get surgical ORIF tomorrow, 08/21/2023, once INR is below 1.6. Denies chest pain, shortness of breath, lightheadedness, dizziness, abdominal pain, or urinary symptoms. Physical Exam Physical Exam: General: No acute distress, nondiaphoretic, well-developed, well-nourished. Skin: Left arm in sugar-tong splint. Left fingertips are warm and well perfused. The skin was without rashes, erythema, edema, or bruising. Cardiac: Regular rate and rhythm. Mechanical valve click. Pulm: Clear to auscultation bilaterally without wheezes, rales or rhonchi. No retractions or accessory muscle use. Abdominal: Positive bowel sounds x 4. Soft, nontender, without masses or organomegaly. No guarding or rebound tenderness. Neuro: A&O x3. No focal neurological deficits. Results & Data Results & Data Vital Signs (Past 12 Hours) Vital Signs Temp Pulse Pulse Resp BP BP Pulse Ox 08/20/23 12:31 68 18 109/57 L 93 08/20/23 12:27 109/57 L 08/20/23 12:27 68 17 93 08/20/23 12:25 64 19 95 08/20/23 12:20 67 19 94 08/20/23 12:05 68 17 94 08/20/23 12:00 68 16 94 08/20/23 12:00 109/53 L 08/20/23 07:51 65 08/20/23 07:39 36.8 C 63 22 131/64 96 08/20/23 02:40 37.1 C 62 18 130/59 L 99 O2 Del Method O2 Flow Rate 08/20/23 12:31 Nasal Cannula 2 08/20/23 12:27 08/20/23 12:27 08/20/23 12:25 08/20/23 12:20 08/20/23 12:05 08/20/23 12:00 08/20/23 12:00 08/20/23 07:51 08/20/23 07:39 Room Air 08/20/23 02:40 Nasal Cannula 2 Laboratory Results Reviewed CBC Reviewed BMP PG Care Time/CCT Total # of Minutes Spent Total Time Spent with Patient: Total time spent is greater than 50% in coordination of care (as documented) at patient's floor/unit and/or counseling patient: Coding Level of Care Code 65567 SUB INP/OBS CARE 3/50MIN Diagnoses Left wrist fracture S62.102A CKD (chronic kidney disease) stage 4, GFR 15-29 ml/min N18.4 Hx of aortic valve replacement, mechanical Z95.2 H/O mitral valve replacement with mechanical valve Z95.2 History of CVA (cerebrovascular accident) Z86.73 Paroxysmal SVT (supraventricular tachycardia) I47.1 Dyslipidemia E78.5 Hypertension I10 Hypertension type: unspecified (8) Hypertension Hypertension type: unspecified Qualified Code(s): I10 - Essential (primary) hypertension
--- NOTE | 2023-08-20 15:06 | Electrocardiogram Report ---
Test Reason : Blood Pressure : / mmHG Vent. Rate : 068 BPM Atrial Rate : 068 BPM P-R Int : 168 ms QRS Dur : 100 ms QT Int : 446 ms P-R-T Axes : 075 053 093 degrees QTc Int : 474 ms Normal sinus rhythm Diffuse Minor Nonspecific T wave abnormality Prolonged QT Abnormal ECG When compared with ECG of 23-MAY-2020 13:15, No significant change Confirmed by Adams Gamino ([id number]) on 08/20/2023 3:06:10 PM Referred By: REFERRED SELF Confirmed By:Adams Gamino
--- NOTE | 2023-08-20 19:12 | Communication Note ---
Date of Service: August 20, 2023 Surgery is scheduled for August 20 at 12 PM. I request from the primary service to discontinue the heparin dose at the appropriate time prior to surgery. I question whether or not vitamin K will be necessary given that the INR is 1.6 and the patient states she took her Coumadin on Saturday night.
[2023-08-20] MEDS: oxyCODONE HCL IR 5 MG TAB (IMMEDIATE RELEASE) PO PRN (20:04)
[2023-08-20] MEDS: PRAMIPEXOLE DIHYDROCHLO 0.25 MG TAB PO SCH (20:04)
[2023-08-20] MEDS: PREGABALIN 100 MG CAP PO SCH (20:04)
--- NOTE | 2023-08-21 06:12 | Billing Data ---
Date of Service August 21, 2023 Coding Level of Care Code 27347 INT INP/OBS CARE
[2023-08-21 06:54] LABS: Basophils # (auto) 0.02 K/uL (0.00-0.20); Basophils % (auto) 0.3 %; Eosinophils # (auto) 0.37 K/uL (0.00-0.50); Eosinophils % (auto) 4.8 %; Hemoglobin 7.8 g/dl (12.0-16.0); Immature Granulocytes # (auto) 0.02 K/uL (0.01-0.20); Immature Granulocytes % (auto) 0.3 %; Lymphocytes # (auto) 1.07 K/uL (1.20-3.40); Lymphocytes % (auto) 13.8 %; Mean Corpuscular Hemoglobin 31.7 pg (25.0-34.0); Mean Corpuscular Hgb Conc 32.5 g/dL (32.0-36.0); Mean Corpuscular Volume 97.6 fL (80.0-100.0); Mean Platelet Volume 11.6 fL (9.4-12.4); Monocytes % (auto) 11.6 %; Neutrophils # (auto) 5.38 K/uL (1.40-6.50); Neutrophils % (auto) 69.2 %; Platelet Count 132 K/uL (130-400); RDW Standard Deviation 53.4 fL (36.4-46.3); Red Blood Count 2.46 M/uL (4.20-5.40); White Blood Count 7.76 K/ul (4.8-10.8)
[2023-08-21 07:13] LABS: Ovalocytes 1+; Polychromasia 1+
[2023-08-21 07:22] LABS: BUN Creatinine Ratio 13.4 (10-20); Calcium 8.2 mg/dl (8.6-10.3); Creatinine Clr Calc Pharmacy 15.8 ml/min; Est GFR (African American) 22.6 ml/min; Est GFR (Non-African American) 19.5 ml/min; Potassium 4.2 mmol/L (3.5-5.1)
[2023-08-21] MEDS ORDERED: ROPIVACAINE 0.5% 5 MG/ML 30 ML VIAL ONE (07:29)
[2023-08-21 07:31] LABS: INR 2.1 (0.9-1.1); Prothrombin Time 21.9 Seconds (9.0-12.0)
[2023-08-21] MEDS ORDERED: SODIUM CHLORIDE 0.9% 250 ML IV PRN (07:37)
[2023-08-21 08:01] LABS: ANTI-Xa, UFH(UnfractionatedHep 1.08 IU/ml (0.3-0.7)
[2023-08-21] MEDS: ASPIRIN 81 MG ECTAB PO SCH (08:51)
[2023-08-21] MEDS: PHYTONADIONE 2.5 MG in DEXTROSE 5% 50 ML IV ONE (09:40)
[2023-08-21] MEDS ORDERED: PROPOFOL IV EMULSION 10 MG/ML 20 ML VIAL IV ONE (09:56)
[2023-08-21] MEDS ORDERED: LIDOCAINE 2% 2 ML VIAL/AMP(20MG/ML) INFIL ONE ×2 (10:04)
[2023-08-21] MEDS ORDERED: MIDAZOLAM HCL 1 MG/ML 2ML VIAL ONE (10:05)
[2023-08-21] MEDS ORDERED: fentaNYL citrate PF 100 MCG/2 ML VIAL ONE (10:05)
[2023-08-21 12:06] LABS: INR 1.9 (0.9-1.1)
--- NOTE | 2023-08-21 12:20 | Communication Note ---
Date of Service: August 21, 2023 INR is 1.9. At this point, this is still too high for surgery. Will plan to cancel surgery today and reschedule for Saturday afternoon once INR reaches a acc eptable limit.
[2023-08-21] MEDS ORDERED: Heparin IV Adult Wt-Based Standard w/ INITIAL Bolus Protocol IV SCH (12:24)
[2023-08-21] MEDS ORDERED: HEPARIN SOD (PORCINE) 1000 UNIT/ML IV ONE (12:33)
[2023-08-21] MEDS ORDERED: HEPARIN SODIUM/DEXTROSE 25,000 UNITS/500 ML BAG IV SCH (12:45)
--- NOTE | 2023-08-21 15:49 | Hospitalist Progress Note ---
Date of Service August 21, 2023 Assessment & Plan (1) Left wrist fracture: Plan: -Left wrist fracture that came as a result of a mechanical fall -No preceding symptoms such as palpitations, chest pain, lightheadedness, dizziness, diaphoresis, or any other symptom -Patient able to perform ADLs independently prior to this -Ancef given by EMS and Zosyn given in ED -Left wrist x-ray performed in the ED showing fork deformity -Ortho consulted and seen patient in the ED Irrigated and debrided skin and subcutaneous tissue at patient's bedside Close reduction performed under sedation -Hgb 7.8 on 08/21/23 -- one unit of blood typed and crossed, reassess Hgb daily a nd in postop setting -Surgical ORIF postponed until 08/23/2023 due to patient's INR being 1.9 after vitamin K on 08/21/2023 -Hold heparin 6 hours before scheduled surgery time (2) CKD (chronic kidney disease) stage 4, GFR 15-29 ml/min: Plan: -Acute on chronic kidney disease -Follows with outpatient nephrology -Creatinine on ED labs elevated at 2.32 -Possible that this is related to the patient's fall and consequent hypovolemia (3) Hx of aortic valve replacement, mechanical: Plan: -Patient with known history of aortic and mitral mechanical valves, as well as associated CVA -On chronic warfarin with INR goal of 2.5-3.5. Follows up with anticoagulation clinic. -Hold warfarin in the setting of possible surgical intervention for ORIF -Placed on heparin drip until day of surgery -- hold 6 hours prior to scheduled surgery time -Monitor daily INR (4) H/O mitral valve replacement with mechanical valve: Plan: As above (5) History of CVA (cerebrovascular accident): Plan: - On ASA 81mg every other day (6) Paroxysmal SVT (supraventricular tachycardia): Plan: -Continue home meds (7) Dyslipidemia: Plan: -Continue home meds (8) Hypertension: Plan: -Continue home meds Plan Diet: Heart Healthy VTE ppx: Heparin drip Code Status: Full Admission and Anticipated Discharge Date Admission Date: August 19, 2023 Subjective Patient seen and evaluated at bedside with . She reports the pain in her left wrist is properly controlled with scheduled acetaminophen and oxycodone and morphine as needed. She was scheduled for surgical ORIF today, however that has been postponed until 08/23/2023. Patient was transition from warfarin to heparin on admission due to mechanical aortic and mitral valves. Heparin was held this AM, however INR was 2.1 this morning. Vitamin K was given and INR recheck was 1.9. I discussed these findings with Dr. Jones. Heparin restarted and will hold starting 6 hours before scheduled surgery time on Saturday. She denies chest pain, shortness of breath, lightheadedness, dizziness, abdominal pain, or urinary symptoms. Physical Exam Physical Exam: General: No acute distress, nondiaphoretic, well-developed, well-nourished. Skin: Left arm in sugar-tong splint. Left fingertips are warm and well perfused. The skin was without rashes, erythema, edema, or bruising. Cardiac: Regular rate and rhythm. Mechanical valve click. Pulm: Clear to auscultation bilaterally without wheezes, rales or rhonchi. No retractions or accessory muscle use. Abdominal: Positive bowel sounds x 4. Soft, nontender, without masses or organomegaly. No guarding or rebound tenderness. Neuro: A&O x3. No focal neurological deficits. Results & Data Results & Data Vital Signs (Past 12 Hours) Vital Signs Temp Pulse Pulse Resp BP BP Pulse Ox 08/21/23 15:06 63 08/21/23 11:57 36.7 C 62 17 115/58 L 96 08/21/23 07:43 37.9 C H 69 17 112/59 L 94 08/21/23 07:30 08/21/23 07:04 70 08/21/23 03:55 37.3 C 71 20 115/61 94 O2 Del Method O2 Flow Rate 08/21/23 15:06 08/21/23 11:57 Nasal Cannula 2 08/21/23 07:43 Nasal Cannula 2 08/21/23 07:30 Nasal Cannula 2 08/21/23 07:04 08/21/23 03:55 Nasal Cannula 2 Laboratory Results Reviewed CBC Reviewed BMP Reviewed Coag PG Care Time/CCT Total # of Minutes Spent Total Time Spent with Patient: Total time spent is greater than 50% in coordination of care (as documented) at patient's floor/unit and/or counseling patient: Coding Level of Care Code 15058 SUB INP/OBS CARE 3/50MIN Diagnoses Left wrist fracture S62.102A CKD (chronic kidney disease) stage 4, GFR 15-29 ml/min N18.4 Hx of aortic valve replacement, mechanical Z95.2 H/O mitral valve replacement with mechanical valve Z95.2 History of CVA (cerebrovascular accident) Z86.73 Paroxysmal SVT (supraventricular tachycardia) I47.1 Dyslipidemia E78.5 Hypertension I10 Hypertension type: unspecified (8) Hypertension Hypertension type: unspecified Qualified Code(s): I10 - Essential (primary) hypertension
[2023-08-21 19:19] LABS: ANTI-Xa, UFH(UnfractionatedHep 0.51 IU/ml (0.3-0.7)
[2023-08-22 01:40] LABS: ANTI-Xa, UFH(UnfractionatedHep 0.51 IU/ml (0.3-0.7)
[2023-08-22 06:28] LABS: ANTI-Xa, UFH(UnfractionatedHep 0.55 IU/ml (0.3-0.7); INR 1.3 (0.9-1.1); Prothrombin Time 14.1 Seconds (9.0-12.0)
[2023-08-22 06:30] LABS: Basophils # (auto) 0.02 K/uL (0.00-0.20); Basophils % (auto) 0.3 %; Eosinophils # (auto) 0.32 K/uL (0.00-0.50); Eosinophils % (auto) 5.1 %; Hematocrit (blood only) 21.8 % (37.0-47.0); Hemoglobin 7.1 g/dl (12.0-16.0); Immature Granulocytes # (auto) 0.03 K/uL (0.01-0.20); Immature Granulocytes % (auto) 0.5 %; Lymphocytes # (auto) 0.94 K/uL (1.20-3.40); Lymphocytes % (auto) 15.1 %; Mean Corpuscular Hemoglobin 31.4 pg (25.0-34.0); Mean Corpuscular Hgb Conc 32.6 g/dL (32.0-36.0); Mean Corpuscular Volume 96.5 fL (80.0-100.0); Mean Platelet Volume 11.3 fL (9.4-12.4); Monocytes # (auto) 0.74 K/uL (0.11-0.59); Monocytes % (auto) 11.9 %; Neutrophils # (auto) 4.19 K/uL (1.40-6.50); Neutrophils % (auto) 67.1 %; Ovalocytes 1+; Platelet Count 111 K/uL (130-400); Polychromasia 1+; RDW Coefficient of Variation 15.1 % (11.5-14.5); RDW Standard Deviation 52.5 fL (36.4-46.3); Red Blood Count 2.26 M/uL (4.20-5.40); White Blood Count 6.24 K/ul (4.8-10.8)
[2023-08-22 07:02] LABS: Calcium 7.9 mg/dl (8.6-10.3); Potassium 3.8 mmol/L (3.5-5.1)
[2023-08-22 07:07] LABS: BUN Creatinine Ratio 14.7 (10-20); Creatinine Clr Calc Pharmacy 16.8 ml/min; Est GFR (African American) 24.3 ml/min
[2023-08-22] MEDS ORDERED: SODIUM CHLORIDE 0.9% 250 ML IV PRN (09:23)
--- NOTE | 2023-08-22 17:09 | Hospitalist Progress Note ---
Date of Service August 22, 2023 Assessment & Plan (1) Left wrist fracture: Plan: -Left wrist fracture that came as a result of a mechanical fall -No preceding symptoms such as palpitations, chest pain, lightheadedness, dizziness, diaphoresis, or any other symptom -Patient able to perform ADLs independently prior to this -Ancef given by EMS and Zosyn given in ED -Left wrist x-ray performed in the ED showing fork deformity -Ortho consulted and seen patient in the ED Irrigated and debrided skin and subcutaneous tissue at patient's bedside Close reduction performed under sedation -Surgical ORIF scheduled for 08/23/2023 at 1200. -Hold heparin starting at 6 AM on day of surgery. -NPO at midnight. -Blood loss anemia, most likely secondary to blood loss from this compound wrist fracture. -Hgb 9.7 on admission -Hgb 7.1 on 08/22/2023 -1 unit of blood transfused on 08/22/2023 -Recheck H&H this evening. If hemoglobin continues to downtrend, consider other causes for blood loss including CT abdomen and pelvis -Reassess H&H daily and in postop setting (2) CKD (chronic kidney disease) stage 4, GFR 15-29 ml/min: Plan: -Acute on chronic kidney disease -Follows with outpatient nephrology -Creatinine on ED labs elevated at 2.32 -Possible that this is related to the patient's fall and consequent hypovolemia (3) Hx of aortic valve replacement, mechanical: Plan: -Patient with known history of aortic and mitral mechanical valves, as well as associated CVA -On chronic warfarin with INR goal of 2.5-3.5. Follows up with anticoagulation clinic. -Hold warfarin in the setting of possible surgical intervention for ORIF -Placed on heparin drip until day of surgery -- hold 6 hours prior to scheduled surgery time -Monitor daily INR -Bridge anticoagulation back to warfarin when appropriate after surgery (4) H/O mitral valve replacement with mechanical valve: Plan: As above (5) History of CVA (cerebrovascular accident): Plan: - On ASA 81mg every other day -Holding for now, in setting of upcoming surgery (6) Paroxysmal SVT (supraventricular tachycardia): Plan: -Continue home meds (7) Dyslipidemia: Plan: -Continue home meds (8) Hypertension: Plan: -Continue home meds Plan Diet: Heart Healthy VTE ppx: Heparin drip Code Status: Full Admission and Anticipated Discharge Date Admission Date: August 19, 2023 Subjective Patient seen and evaluated at bedside. She is scheduled for ORIF surgery tomorrow, 08/23/2023, at 1200. Will hold heparin starting at 6 AM. Will make n.p.o. after midnight. She received 1 unit of blood today, 08/22/2023, which has been well-tolerated. Will recheck H&H this evening, as well as iron, B12, and folic acid. She reports the pain in her left wrist is under control with the ordered pain management treatment. She denies chest pain, shortness of breath, lightheadedness, dizziness, abdominal pain, or urinary symptoms. Physical Exam Physical Exam: General: No acute distress, nondiaphoretic, well-developed, well-nourished. Skin: Left arm in sugar-tong splint. Left fingertips are warm and well perfused. The skin was without rashes, erythema, edema, or bruising. Cardiac: Regular rate and rhythm. Mechanical valve click. Pulm: Clear to auscultation bilaterally without wheezes, rales or rhonchi. No retractions or accessory muscle use. Abdominal: Positive bowel sounds x 4. Soft, nontender, without masses or organomegaly. No guarding or rebound tenderness. Neuro: A&O x3. No focal neurological deficits. Results & Data Results & Data Vital Signs (Past 12 Hours) Vital Signs Temp Pulse Pulse Resp BP BP Pulse Ox 08/22/23 15:41 37.1 C 63 16 114/53 L 96 08/22/23 13:56 37.4 C 64 18 121/59 L 96 08/22/23 13:37 37.3 C 65 18 120/52 L 95 08/22/23 11:49 37 C 63 17 122/65 96 08/22/23 08:01 36.9 C 58 L 17 125/57 L 92 08/22/23 05:19 37.2 C 72 18 163/65 H 91 O2 Del Method O2 Flow Rate 08/22/23 15:41 Nasal Cannula 2 08/22/23 13:56 08/22/23 13:37 08/22/23 11:49 Nasal Cannula 2 08/22/23 08:01 Nasal Cannula 2 08/22/23 05:19 Nasal Cannula 2 Laboratory Results Reviewed CBC Reviewed BMP Reviewed coag PG Care Time/CCT Total # of Minutes Spent Total Time Spent with Patient: Total time spent is greater than 50% in coordination of care (as documented) at patient's floor/unit and/or counseling patient: Coding Level of Care Code 83439 SUB INP/OBS CARE 3/50MIN Diagnoses Left wrist fracture S62.102A CKD (chronic kidney disease) stage 4, GFR 15-29 ml/min N18.4 Hx of aortic valve replacement, mechanical Z95.2 H/O mitral valve replacement with mechanical valve Z95.2 History of CVA (cerebrovascular accident) Z86.73 Paroxysmal SVT (supraventricular tachycardia) I47.1 Dyslipidemia E78.5 Hypertension I10 Hypertension type: unspecified (8) Hypertension Hypertension type: unspecified Qualified Code(s): I10 - Essential (primary) hypertension
[2023-08-22] MEDS: PANTOprazole 40 MG TAB PO SCH (18:08)
[2023-08-22 19:28] LABS: Hematocrit (blood only) 26.2 % (37.0-47.0); Hemoglobin 8.8 g/dl (12.0-16.0)
[2023-08-22 20:03] LABS: Folate (Folic Acid),Ser orPlas > 22.30 ng/ml (>5.38)
[2023-08-22 20:04] LABS: Vitamin B12 148 pg/ml (180-914)
[2023-08-23 06:22] LABS: Hematocrit (blood only) 25.3 % (37.0-47.0); Hemoglobin 8.2 g/dl (12.0-16.0); Mean Corpuscular Hgb Conc 32.4 g/dL (32.0-36.0); Mean Corpuscular Volume 92.7 fL (80.0-100.0); Mean Platelet Volume 11.6 fL (9.4-12.4); Platelet Count 120 K/uL (130-400); RDW Coefficient of Variation 16.6 % (11.5-14.5); Red Blood Count 2.73 M/uL (4.20-5.40); White Blood Count 7.14 K/ul (4.8-10.8)
[2023-08-23 06:32] LABS: BUN Creatinine Ratio 13.3 (10-20); Calcium 8.1 mg/dl (8.6-10.3); Creatinine Clr Calc Pharmacy 19.3 ml/min; Est GFR (African American) 28.7 ml/min; Est GFR (Non-African American) 24.8 ml/min
[2023-08-23 06:37] LABS: ANTI-Xa, UFH(UnfractionatedHep 0.42 IU/ml (0.3-0.7); INR 1.1 (0.9-1.1); Prothrombin Time 11.9 Seconds (9.0-12.0)
--- NOTE | 2023-08-23 09:51 | Anesthesiology Consultation ---
Date of Service August 23, 2023 Assessment & Plan (1) Encounter for pre-operative examination: Plan Patient on heparin ggt to be held starting at 6AM DOS. Chart Review Chart Review: Acceptable Risk for Surgery and Patient NOT seen in Pre Admission Testing Consults Requested none History Surgery Operation Date: 08/23/23 15:00 Proposed Procedures p Left Distal Radius Fracture Open Reduction Internal Fixation, Irrigation and Debridement Open Fracture - Odilon Jones MD Height/Weight Height: 5 ft 1 in Weight: 54 kg Allergies Allergy/AdvReac Type Severity Reaction Status Date / Time doxycycline Allergy Unknown CAN'T Verified 08/19/23 22:01 REMEMBER sulfamethoxazole Allergy Unknown CAN'T Verified 08/19/23 22:01 REMEMBER trimethoprim Allergy Unknown CAN'T Verified 08/19/23 22:01 REMEMBER Medications Home Medications Medication Instructions Recorded Confirmed Last Taken citalopram 20 mg tablet 20 mg PO QAM 07/31/18 08/19/23 08/19/23 levothyroxine 50 mcg tablet 50 mcg PO QAM 07/31/18 08/19/23 08/19/23 allopurinol 100 mg tablet 100 mg PO DAILY #90 tabs 07/19/23 08/19/23 08/19/23 amlodipine 2.5 mg tablet 2.5 mg PO DAILY 07/19/23 08/19/23 08/19/23 atorvastatin 40 mg tablet 40 mg PO DAILY 07/19/23 08/19/23 08/19/23 isosorbide mononitrate 30 mg 30 mg PO QAM #90 tabs 07/19/23 08/19/23 08/19/23 tablet,extended release 24 hr pregabalin 100 mg capsule (Lyrica) 100 mg PO PM #90 caps 07/19/23 08/19/23 08/18/23 triamcinolone acetonide 0.1 % 1 applic topical BID PRN Skin 07/19/23 08/19/23 Unknown topical cream Irritation pramipexole 0.125 mg tablet 0.125 mg PO QPM #30 tabs 08/02/23 08/19/23 08/18/23 folic acid 1 mg tablet 1 mg PO DAILY #90 tabs 08/05/23 08/19/23 08/19/23 aspirin 81 mg chewable tablet 81 mg PO Q OTHER DAY 08/12/23 08/19/23 08/19/23 warfarin 2.5 mg tablet See Rx Instructions PO .COMPLEX 08/12/23 08/19/23 08/18/23 metoprolol succinate 25 mg 25 mg PO BID 08/19/23 08/19/23 08/19/23 08:00 tablet,extended release 24 hr Active Medications Generic Name Dose Route Start Last Admin Trade Name Siobhan PRN Reason Stop Dose Admin Allopurinol 100 mg 08/20/23 09:00 08/23/23 08:07 Allopurinol 100 Mg Tab PO 09/19/23 08:59 100 mg DAILY OLGA Administration Amlodipine Besylate 2.5 mg 08/20/23 09:00 08/23/23 08:07 Amlodipine Besylate 5 Mg Tab PO 09/19/23 08:59 2.5 mg DAILY OLGA Administration Aspirin 81 mg 08/21/23 09:00 08/21/23 08:51 Aspirin 81 Mg Ectab PO 09/20/23 08:59 81 mg Q2D OLGA Administration Atorvastatin Calcium 40 mg 08/20/23 09:00 08/23/23 08:07 Atorvastatin 40 Mg Tab PO 09/19/23 08:59 40 mg DAILY OLGA Administration Citalopram Hydrobromide 20 mg 08/20/23 09:00 08/23/23 08:07 Citalopram 20 Mg Tab PO 09/19/23 08:59 20 mg QAM OLGA Administration Folic Acid 1 mg 08/20/23 09:00 08/23/23 08:07 Folic Acid 1 Mg Tab PO 09/19/23 08:59 1 mg DAILY OLGA Administration Heparin Sodium/Dextrose 25,000 units in 500 mls @ 14 mls/hr 08/19/23 23:26 08/23/23 06:05 Heparin Sodium/Dextrose IV 09/18/23 23:25 0 units/hr .Q24H OLGA 0 mls/hr Titration Protocol 700 UNITS/HR Lactated Ringer's 1,000 mls @ 80 mls/hr 08/19/23 23:30 08/23/23 00:14 Lr IV 09/18/23 23:29 80 mls/hr .[id number] OLGA Administration Isosorbide Mononitrate 30 mg 08/20/23 09:00 08/23/23 08:07 Isosorbide [place] Extended Rel 30 Mg Tabcr PO 09/19/23 08:59 30 mg QAM OLGA Administration Levothyroxine Sodium 50 mcg 08/20/23 06:30 08/23/23 04:52 Levothyroxine Sodium 50 Mcg Tablet PO 09/19/23 06:29 50 mcg DAILYBB OLGA Administration Metoprolol Succinate 25 mg 08/20/23 09:00 08/23/23 08:06 Metoprolol Succ 25mg Ext Rel Tab PO 09/19/23 08:59 25 mg BID OLGA Administration Morphine Sulfate 2 mg 08/19/23 23:26 08/21/23 22:58 Morphine Sulfate 2 Mg/Ml Carp IV 09/02/23 23:25 2 mg Q4H PRN Administration Pain Oxycodone HCl 5 mg 08/20/23 13:29 08/22/23 19:36 Oxycodone Hcl Ir 5 Mg Tab (Immediate Release) PO 09/03/23 13:28 5 mg Q6H PRN Administration Moderate Pain (Scale 4, 5, 6) Pantoprazole Sodium 40 mg 08/22/23 17:00 08/23/23 08:07 Pantoprazole 40 Mg Tab PO 09/21/23 16:59 40 mg QAM OLGA Administration Pramipexole Dihydrochloride 0.125 mg 08/20/23 21:00 08/22/23 19:38 Pramipexole Dihydrochlo 0.25 Mg Tab PO 09/19/23 20:59 0.125 mg QPM OLGA Administration Pregabalin 100 mg 08/20/23 21:00 08/22/23 19:36 Pregabalin 100 Mg Cap PO 09/19/23 20:59 100 mg PM OLGA Administration Past Medical History Medical History (Updated 08/23/23 @ 09:48 by Hermes Collier MD) Encounter for pre-operative examination Paroxysmal SVT (supraventricular tachycardia) Chronic constipation RLS (restless legs syndrome) Chronic pain CKD (chronic kidney disease), stage III Hypertension CVA (cerebral vascular accident) BIRDIE (obstructive sleep apnea) Dyslipidemia Hypothyroidism Acute on Chronic Kidney disease Past Family History Family History Father Heart disease Mother Stroke Past Surgical History Surgical History S/P total abdominal hysterectomy H/O neck surgery History of cholecystectomy H/O oophorectomy S/P repair of paraesophageal hernia History of total right hip replacement S/P lumbar fusion H/O hemorrhoidectomy Hx of aortic valve replacement, mechanical H/O mitral valve replacement with mechanical valve Social History Smoking Status: Never smoker Do You Dip or Chew Tobacco: No Hx Alcohol Use: No Hx Substance Use: No substance use type: does not use Physical Exam Vital Signs Last Vital Signs Temp 36.6 C 08/23/23 08:10 Pulse 59 L 08/23/23 08:10 Resp 16 08/23/23 08:10 BP 139/63 08/23/23 08:10 Pulse Ox 96 08/23/23 08:10 O2 Del Method Nasal Cannula 08/23/23 08:10 O2 Flow Rate 2 08/23/23 08:10 Testing Laboratory Results 08/23/23 05:51 08/23/23 05:51 PT 11.9 Seconds (9.0-12.0) 08/23/23 05:51 INR 1.1 (0.9-1.1) 08/23/23 05:51 APTT 37 Seconds (21-31) H 08/19/23 21:25 Blood Type O Positive 08/21/23 07:44 Antibody Screen NEGATIVE 08/21/23 07:44 Patient received i unit pRBC 08/22/23. Electrocardiogram Date: 08/19/23 DICTATED BY: Adams Gamino MD Test Reason : Blood Pressure : / mmHG Vent. Rate : 068 BPM Atrial Rate : 068 BPM P-R Int : 168 ms QRS Dur : 100 ms QT Int : 446 ms P-R-T Axes : 075 053 093 degrees QTc Int : 474 ms Normal sinus rhythm Diffuse Minor Nonspecific T wave abnormality Prolonged QT Abnormal ECG When compared with ECG of 23-MAY-2020 13:15, No significant change Confirmed by Adams Gamino ([id number]) on 08/20/2023 3:06:10 PM Chest X-Ray Date: 08/19/23 XR chest 1V portable CLINICAL HISTORY: fall TECHNIQUE: Single frontal radiograph of the chest was obtained. Comparison: Comparison is made to chest radiograph 05/24/2020 FINDINGS: Median sternotomy wires are unchanged. Cardiomegaly is noted. The aortic arch is calcified. The lungs are clear. No evidence of pleural effusion or pneumothorax. IMPRESSION: No acute chest disease. Other Testing Echo 2019: LV is normal in size Mild LVH EF 55-60% RV systolic function is normal. LA is moderately dilated RA is normal There is a bi-leaflet aortic mechanical prosthesis The gradient is normal for this prosthetic aortic valve There is a bi-leaflet mechanical prosthesis. Prosthetic mitral valve peak and/or mean gradients are normal.
[2023-08-23] MEDS ORDERED: ONDANSETRON INJ 2 MG/ML 2 ML VIAL ONE (13:05)
[2023-08-23] MEDS ORDERED: PROPOFOL IV EMULSION 10 MG/ML 20 ML VIAL IV ONE (13:05)
[2023-08-23] MEDS ORDERED: MIDAZOLAM HCL 1 MG/ML 2ML VIAL ONE (13:06)
[2023-08-23] MEDS ORDERED: fentaNYL citrate PF 100 MCG/2 ML VIAL ONE (13:06)
[2023-08-23] MEDS ORDERED: BUPIVACAINE 0.5 % 5 MG/1 ML MPF 30ML VIAL ONE (13:26)
[2023-08-23] MEDS ORDERED: ePHEDrine sulfate 50 MG/ML AMP IV PRN (13:43)
[2023-08-23] MEDS ORDERED: HYDROmorphone INJ 1 MG/ML SYRINGE IV PRN (13:43)
[2023-08-23] MEDS ORDERED: fentaNYL citrate PF 100 MCG/2 ML VIAL IV PRN (13:43)
[2023-08-23] MEDS ORDERED: ONDANSETRON INJ 2 MG/ML 2 ML VIAL IV PRN (13:43)
[2023-08-23] MEDS ORDERED: ATROPINE SULFATE 0.1 MG/ML 10ML SYR IV PRN (13:43)
--- NOTE | 2023-08-23 14:23 | History & Physical Bridge Note ---
Date of Service August 23, 2023 History & Physical Bridge Note I have examined the patient, reviewed the History & Physical and in the interval since the performance of the History & Physical I have noted the following changes of clinical significance: no changes noted Will plan for: Left wrist ORIF of distal radius fracture, left wrist I&D
--- NOTE | 2023-08-23 14:47 | Operative Report ---
Post Operative Report Procedure Date: August 23, 2023 PRE-OP DIAGNOSIS: Left open distal radius fracture, 3 part intra-articular POST-OP DIAGNOSIS: Same PROCEDURE: ORIF left distal radius fracture, irrigation and debridement of skin subcutaneous tissue and bone SURGEON: Bo Jones MD STUDIO COORDINATOR: Allan Rosales PA-C ANESTHESIA: Regional block with sedation FINDINGS: Displaced fracture noted. Osteoporotic bone seen consistent with osteoporotic fracture. Fracture had 3 parts. There is a separate radial styloid piece. There is a volar ulnar piece and there is dorsal comminution as well as the shaft piece. INDICATIONS: This is a female who is status post distal radius fracture. She presents after provisional irrigation debridement and closed reduction. She presents for ORIF. The risks and benefits have been discussed including, but not limited to, risk of infection, nerve injury, stiffness, loss of motion, failure to improve, etc. Reasonable outcomes and options of treatment were discussed. An explanation of appropriate alternatives to the procedure that may be advantageous were discussed and their risks and benefits, as well as the risks and benefits of not proceeding with treatment. I offered to answer any additional inquiries concerning the treatment involved. All the patients questions were answered. The patient is agreeable, understanding of the treatment plan and alternatives, and wishes to proceed with the treatment plan. DESCRIPTION OF OPERATION: The patient was identified. The proper procedure and site were verified. A surgical time out was taken and observed. The patient was given perioperative antibiotics prior to the skin incision. After administration of anesthesia, the patient's arm prepped and draped in the usual sterile fashion. Made a longitudinal incision over the FCR tendon. Dissection was carried down through the skin and subcutaneous tissues. The FCR tendon sheath was sharply incised and the FCR was swept in an ulnar direction. The base that sheath was incised, and the FPL was swept in an ulnar direction. The pronator was taken off with Bovie electrocautery. The pronator was very shredded. Identified the fracture site. Fracture site was cleaned out of soft tissue. I then openly reduced the fracture, and it did reduce well. I placed a Biomet cross lock plate with the oblong screw first. I then adjusted this for height. I placed all the screws and distally in a locking fashion, with a variable angle screw in the radial styloid. A total of 4 screws were placed proximally the combination of locking and nonlocking fashion. Due to the complex nature of the procedure, the entire surgery was performed with the operational assistance of Allan Rosales PA-C.The processing assistant, under direct supervision, was involved in the actual performance of all aspects of the surgical procedure including hemostasis, tissue retraction and incision, in strument management, patient positioning, and wound closure. Postoperative plan will be 4 weeks of short arm cast immobilization. At 4 weeks we will begin thermoplastic brace custom molded by hand therapist. Will begin active range of motion of the wrist at postop week 6. Attestation: I attest to the content of the Intraoperative Record and any orders documented therein. Any exceptions are noted below.
--- NOTE | 2023-08-23 16:31 | Communication Note ---
Date of Service: August 23, 2023 May resume Coumadin tonight as per primary service. May resume Lovenox or heparin tomorrow with the primary service wishes.
--- NOTE | 2023-08-23 17:02 | Fluoroscopy Report ---
FL wrist LT 2V CLINICAL HISTORY: LEFT DISTAL RADIUS FX OPEN REDUCTION TECHNIQUE: 6 views were obtained with the C-arm in the OR with the above procedure. Total fluoroscopy time was 71 seconds. Radiation dose was 1.97 mGy. Comparison: Comparison is made to wrist radiographs 08/19/2023 FINDINGS/IMPRESSION: Intraoperative images were obtained of open reduction of the left distal radial fracture. Please correlate with intraoperative fluoroscopy and operative report. ACT 112: Negative or not required by law. Electronically signed by: Aroldo Coronado M.D. 08/23/2023 5:00 PM
--- NOTE | 2023-08-23 17:25 | Anesthesiology Progress Note ---
Date of Service August 23, 2023 Anesthesia Post Procedure Vital Signs Vital Signs: Temp Pulse Pulse Pulse Resp BP BP 08/23/23 16:50 37.1 C 57 L 12 138/55 L 08/23/23 16:40 58 L 12 130/53 L 08/23/23 16:30 36 C L 59 L 16 128/56 L 08/23/23 13:14 37 C 64 20 141/60 H 08/23/23 11:17 37.0 C 60 16 130/54 L 08/23/23 08:10 36.6 C 59 L 16 139/63 08/23/23 03:17 36.8 C 61 18 138/55 L 08/23/23 00:00 62 08/23/23 00:00 08/22/23 23:15 36.9 C 62 18 123/66 08/22/23 23:00 62 08/22/23 19:24 37.0 C 64 18 136/57 L Pulse Ox Pulse Ox O2 Del Method O2 Del Method O2 Flow Rate 08/23/23 16:50 97 Nasal Cannula 2 08/23/23 16:40 98 Nasal Cannula 2 08/23/23 16:30 98 Oxymask 6 08/23/23 13:14 96 Nasal Cannula 2 08/23/23 11:17 94 Nasal Cannula 2 08/23/23 08:10 96 Nasal Cannula 2 08/23/23 03:17 96 Nasal Cannula 2 08/23/23 00:00 08/23/23 00:00 92 Nasal Cannula 08/22/23 23:15 95 Nasal Cannula 2 08/22/23 23:00 08/22/23 19:24 96 Nasal Cannula 2 Pain Intensity Left Wrist: Pain Intensity: 10 Transfer of Care Handoff Completed per policy Notes Mental Status: alert / awake / arousable Patient Amnestic to Procedure: Yes Nausea / Vomiting: adequately controlled Pain: adequately controlled Airway Patency, RR, SpO2: stable & adequate BP & HR: stable & adequate Hydration State: stable & adequate Anesthetic Complications: no major complications apparent Notes: block working well in pacu
[2023-08-23] MEDS: BUPIVACAINE/EPINEPHRINE 0.5% MPF 1:200,000 30 ML VIAL ONE (17:51)
[2023-08-23] MEDS: BUPIVACAINE 0.5 % 5 MG/1 ML MPF 30ML VIAL ONE (17:51)
[2023-08-23] MEDS: ceFAZolin 2000MG 2,000 MG/15 ML SYR IV ONE (17:52)
--- NOTE | 2023-08-23 18:20 | Hospitalist Progress Note ---
Date of Service August 23, 2023 Assessment & Plan (1) Left wrist fracture: Plan: -Left wrist fracture that came as a result of a mechanical fall -Patient able to perform ADLs independently prior to this -Ancef given by EMS and Zosyn given in ED -Left wrist x-ray performed in the ED showing fork deformity -Ortho consulted and seen patient in the ED Irrigated and debrided skin and subcutaneous tissue at patient's bedside Close reduction performed under sedation -Surgical ORIF scheduled for 08/23/2023 at 1200. -Hold heparin starting at 6 AM on day of surgery. Will resume 24 hours after surgery -Acute blood loss anemia, most likely secondary to blood loss from this compound wrist fracture. -Hgb 9.7 on admission -Hgb 7.1 on 08/22/2023-1 unit of blood transfused on 08/22/2023 Hemoglobin stable with appropriate rise after transfusion (2) CKD (chronic kidney disease) stage 4, GFR 15-29 ml/min: Plan: -Acute on chronic kidney disease -Creatinine on ED labs elevated at 2.32 -Possible that this is related to the patient's fall and consequent hypovolemia (3) Hx of aortic valve replacement, mechanical: Plan: -Patient with known history of aortic and mitral mechanical valves, as well as associated CVA -On chronic warfarin with INR goal of 2.5-3.5. Follows up with anticoagulation clinic. -Held warfarin in the setting of possible surgical intervention for ORIF -Placed on heparin drip -- hold 6 hours prior to scheduled surgery time scheduled to resume at 3 PM on 08/23 which is 12 hours postoperatively -Monitor daily INR -Bridge anticoagulation back to warfarin when appropriate after surgery (4) H/O mitral valve replacement with mechanical valve: Plan: As above (5) History of CVA (cerebrovascular accident): Plan: - On ASA 81mg every other day -Holding for now, in setting of upcoming surgery Plan Diet: Heart Healthy VTE ppx: Heparin drip Code Status: Full Admission and Anticipated Discharge Date Admission Date: August 19, 2023 Subjective Patient was seen in company of her she has no complaints hand is in a splint good distal pulse and sensation taken to the OR on 08/22 for ORIF left wrist Patient has 2 mechanical heart valves her heparin has been held 6 hours prior to surgery we will return 24 hours after surgery once hemostasis is assured then she will need to be transition back to her formal anticoagulant which is Coumadin Physical Exam Physical Exam: Awake alert appropriate Card exam is regular with mechanical heart valve sounds and murmurs Lungs are clear anteriorly Left hand has a splint with good distal capillary refill and sensation Results & Data Results & Data Vital Signs (Past 12 Hours) Vital Signs Temp Pulse Pulse Resp BP BP Pulse Ox 08/23/23 18:03 98.6 F 63 16 159/53 H 97 08/23/23 17:29 98.3 F 63 16 122/77 97 08/23/23 16:50 98.8 F 57 L 12 138/55 L 97 08/23/23 16:40 58 L 12 130/53 L 98 08/23/23 16:30 96.8 F L 59 L 16 128/56 L 98 08/23/23 13:14 98.6 F 64 20 141/60 H 96 08/23/23 11:17 98.6 F 60 16 130/54 L 94 08/23/23 08:10 97.9 F 59 L 16 139/63 96 O2 Del Method O2 Flow Rate 08/23/23 18:03 Room Air 08/23/23 17:29 Nasal Cannula 2 08/23/23 16:50 Nasal Cannula 2 08/23/23 16:40 Nasal Cannula 2 08/23/23 16:30 Oxymask 6 08/23/23 13:14 Nasal Cannula 2 08/23/23 11:17 Nasal Cannula 2 08/23/23 08:10 Nasal Cannula 2 Laboratory Results Normal CBC Normal chemistry PG Care Time/CCT Total # of Minutes Spent Total Time Spent with Patient: Total time spent is greater than 50% in coordination of care (as documented) at patient's floor/unit and/or counseling patient: Coding Level of Care Code 23383 SUB INP/OBS CARE 3/50MIN Diagnoses Left wrist fracture S62.102A CKD (chronic kidney disease) stage 4, GFR 15-29 ml/min N18.4 Hx of aortic valve replacement, mechanical Z95.2 H/O mitral valve replacement with mechanical valve Z95.2 History of CVA (cerebrovascular accident) Z86.73
[2023-08-23] MEDS: ACETAMINOPHEN 500 MG TAB PO PRN (23:27)
--- NOTE | 2023-08-24 06:13 | Orthopedic Progress Note ---
Date of Service August 24, 2023 Assessment & Plan (1) Open fracture of left distal radius: Plan: POD #1 s/p ORIF left distal radius fracture, irrigation and debridement of skin subcutaneous tissue and bone ice/elevate for swelling, sling for comfort. can do elbow ROM as tolerated remain in splint/dressing until her f/u with Dr Jones team in 10-14 days Ortho will sign off, please contact with any questions/concerns. d/c instructions placed in chart Admission and Anticipated Discharge Date Admission Date: August 19, 2023 Subjective POD #1 s/p ORIF left distal radius fracture, irrigation and debridement of skin subcutaneous tissue and bone Review of Systems Constitutional: no fever and no chills Respiratory: no cough and no dyspnea Cardiovascular: no chest pain, no dyspnea and no orthopnea Gastrointestinal: no abdominal pain, no nausea and no vomiting Physical Exam Physical Exam: Vital Signs Temp 36.9 C 08/24/23 03:44 Pulse 61 08/24/23 03:44 Resp 18 08/24/23 03:44 BP 135/62 08/24/23 03:44 Pulse Ox 92 08/24/23 03:44 O2 Del Method Room Air 08/24/23 03:44 O2 Flow Rate 2 08/23/23 19:15 Intake & Output 08/23/23 08/23/23 08/24/23 06:59 18:59 06:59 Intake Total 1674.233 / 3324.23 3 1700 / 1820 120 / 1820 Output Total Balance 1673.233 / 3323.23 3 1690 / 1810 120 / 1810 Weight 54 kg 61.1 kg Intake: IV 1434.233 / 2434.23 3 1000 / 1000 Heparin Sodium /Dextrose 25,000 434.233 / 434.233 units In 500 m l @ 700 UNITS/HR 14 mls/hr IV . Q24H OLGA Rx#: [id number] Lactated Ringe r's 1,000 ml @ 15 1000 / 2000 1000 / 1000 mls/hr IV .Q24 H OLGA Rx#: [id number] IV Perioperative 450 / 450 Oral 240 / 580 250 / 370 120 / 370 Output: Estimated Blood Loss # Bowel Movement s Other: Other Intake Mitzi rce npo # Unmeasured Voi ds 2 1 Weight Measureme nt Method Built in Bedscale Musculoskeletal: left upper extremity: currently resting in sling in bed. splint and anastasia intact. sensation intact to light touch all digits. she has movement of all fingers, some limitation of movement due to splint. she is able to flex/extend her elbow without pain. Results & Data Vital Signs (Past 12 Hours) Vital Signs Temp Pulse Pulse Resp BP Pulse Ox O2 Del Method 08/24/23 03:44 36.9 C 61 18 135/62 92 Room Air 08/24/23 02:04 Room Air 08/23/23 22:38 37.9 C H 69 18 134/65 93 Room Air 08/23/23 21:57 67 08/23/23 19:15 36.7 C 62 18 129/63 97 Nasal Cannula O2 Flow Rate 08/24/23 03:44 08/24/23 02:04 08/23/23 22:38 08/23/23 21:57 08/23/23 19:15 2 (1) Open fracture of left distal radius Encounter type: initial encounter
[2023-08-24 06:22] LABS: Hematocrit (blood only) 24.9 % (37.0-47.0); Hemoglobin 8.2 g/dl (12.0-16.0); Mean Corpuscular Hgb Conc 32.9 g/dL (32.0-36.0); Mean Corpuscular Volume 91.2 fL (80.0-100.0); Mean Platelet Volume 11.2 fL (9.4-12.4); Platelet Count 119 K/uL (130-400); Red Blood Count 2.73 M/uL (4.20-5.40); White Blood Count 7.22 K/ul (4.8-10.8)
[2023-08-24 06:39] LABS: BUN Creatinine Ratio 12.6 (10-20); Calcium 8.4 mg/dl (8.6-10.3); Est GFR (African American) 32.9 ml/min; Est GFR (Non-African American) 28.4 ml/min; Potassium 3.7 mmol/L (3.5-5.1)
[2023-08-24 06:52] LABS: INR 1.1 (0.9-1.1); Prothrombin Time 11.7 Seconds (9.0-12.0)
[2023-08-24] MEDS: WARFARIN SOD 2.5 MG TAB PO STA (11:09)
[2023-08-24] MEDS ORDERED: Heparin IV Adult Wt-Based Standard w/ INITIAL Bolus Protocol IV SCH (15:00)
--- NOTE | 2023-08-24 15:18 | Hospitalist Progress Note ---
Date of Service August 24, 2023 Assessment & Plan (1) Left wrist fracture: Plan: -Left wrist fracture that came as a result of a mechanical fall -Patient able to perform ADLs independently prior to this -Ancef given by EMS and Zosyn given in ED -Left wrist x-ray performed in the ED showing fork deformity -Ortho consulted and seen patient in the ED Irrigated and debrided skin and subcutaneous tissue at patient's bedside Close reduction performed under sedation -Surgical ORIF scheduled for 08/23/2023 at 1200. -Hold heparin starting at 6 AM on day of surgery. Will resume 24 hours after surgery -Acute blood loss anemia, most likely secondary to blood loss from this compound wrist fracture. -Hgb 9.7 on admission -Hgb 7.1 on 08/22/2023-1 unit of blood transfused on 08/22/2023 Hemoglobin stable with appropriate rise after transfusion Started heparin dri[ pm 39 and ordered 2.5 mg of coumadin. reviewed bloodwork on 08/23 (2) CKD (chronic kidney disease) stage 4, GFR 15-29 ml/min: Plan: -Acute on chronic kidney disease -Creatinine on ED labs elevated at 2.32 -Possible that this is related to the patient's fall and consequent hypovolemia (3) Hx of aortic valve replacement, mechanical: Plan: -Patient with known history of aortic and mitral mechanical valves, as well as associated CVA -On chronic warfarin with INR goal of 2.5-3.5. Follows up with anticoagulation clinic. -Held warfarin in the setting of possible surgical intervention for ORIF -Placed on heparin drip -- hold 6 hours prior to scheduled surgery time scheduled to resume at 3 PM on 08/23 which is 12 hours postoperatively -Monitor daily INR -Bridge anticoagulation back to warfarin when appropriate after surgery STarted warfarin 2.5 mg on 08/23 will recheck INR on 08/24 (4) H/O mitral valve replacement with mechanical valve: Plan: As above (5) History of CVA (cerebrovascular accident): Plan: - On ASA 81mg every other day -Holding for now, in setting of upcoming surgery Plan Diet: Heart Healthy VTE ppx: Heparin drip Code Status: Full Admission and Anticipated Discharge Date Admission Date: August 19, 2023 Subjective Patient is resting comfortably. Patient reports no new symptoms. Review of Systems Review of Systems: All systems reviewed & are unremarkable except as noted in HPI & below Physical Exam Physical Exam: Awake alert appropriate Card exam is regular with mechanical heart valve sounds and murmurs Lungs are clear anteriorly Left hand has a splint with good distal capillary refill and sensation Results & Data Results & Data Vital Signs (Past 12 Hours) Vital Signs Temp Pulse Pulse Resp BP Pulse Ox O2 Del Method 08/24/23 12:11 37.4 C 60 18 126/65 92 Room Air 08/24/23 08:00 56 L 08/24/23 07:43 36.7 C 56 L 16 134/61 93 Room Air 08/24/23 03:44 36.9 C 61 18 135/62 92 Room Air PG Care Time/CCT Total # of Minutes Spent Total Time Spent with Patient: Total time spent is greater than 50% in coordination of care (as documented) at patient's floor/unit and/or counseling patient: Coding Level of Care Code 58063 SUB INP/OBS CARE 2/35MIN Diagnoses Left wrist fracture S62.102A CKD (chronic kidney disease) stage 4, GFR 15-29 ml/min N18.4 Hx of aortic valve replacement, mechanical Z95.2 H/O mitral valve replacement with mechanical valve Z95.2 History of CVA (cerebrovascular accident) Z86.73
[2023-08-24] MEDS: HEPARIN SOD (PORCINE) 1000 UNIT/ML IV ONE (15:36)
[2023-08-24] MEDS: HEPARIN SODIUM/DEXTROSE 25,000 UNITS/500 ML BAG IV SCH (15:37)
[2023-08-24 22:36] LABS: ANTI-Xa, UFH(UnfractionatedHep 0.54 IU/ml (0.3-0.7)
[2023-08-25 06:24] LABS: Hematocrit (blood only) 24.2 % (37.0-47.0); Hemoglobin 7.9 g/dl (12.0-16.0); Mean Corpuscular Hemoglobin 29.7 pg (25.0-34.0); Mean Corpuscular Hgb Conc 32.6 g/dL (32.0-36.0); Mean Platelet Volume 11.1 fL (9.4-12.4); Platelet Count 127 K/uL (130-400); RDW Coefficient of Variation 15.9 % (11.5-14.5); RDW Standard Deviation 52.2 fL (36.4-46.3); Red Blood Count 2.66 M/uL (4.20-5.40); White Blood Count 7.81 K/ul (4.8-10.8)
[2023-08-25 06:29] LABS: BUN Creatinine Ratio 14.5 (10-20); Creatinine Clr Calc Pharmacy 25.6 ml/min; Est GFR (African American) 35.1 ml/min; Est GFR (Non-African American) 30.3 ml/min; Potassium 3.3 mmol/L (3.5-5.1)
[2023-08-25 06:31] LABS: ANTI-Xa, UFH(UnfractionatedHep 0.45 IU/ml (0.3-0.7); INR 1.2 (0.9-1.1); Prothrombin Time 13.5 Seconds (9.0-12.0)
--- NOTE | 2023-08-25 12:23 | Hospitalist Progress Note ---
Date of Service August 25, 2023 Assessment & Plan (1) Left wrist fracture: Plan: -Left wrist fracture that came as a result of a mechanical fall -Patient able to perform ADLs independently prior to this -Ancef given by EMS and Zosyn given in ED -Left wrist x-ray performed in the ED showing fork deformity -Ortho consulted and seen patient in the ED Irrigated and debrided skin and subcutaneous tissue at patient's bedside Close reduction performed under sedation -Surgical ORIF scheduled for 08/23/2023 at 1200. -Hold heparin starting at 6 AM on day of surgery. Will resume 24 hours after surgery -Acute blood loss anemia, most likely secondary to blood loss from this compound wrist fracture. -Hgb 9.7 on admission -Hgb 7.1 on 08/22/2023-1 unit of blood transfused on 08/22/2023 Hemoglobin stable with appropriate rise after transfusion Started heparin dri[ pm 39 and ordered 2.5 mg of coumadin. reviewed bloodwork on 08/24 (2) CKD (chronic kidney disease) stage 4, GFR 15-29 ml/min: Plan: -Acute on chronic kidney disease -Creatinine on ED labs elevated at 2.32 -Possible that this is related to the patient's fall and consequent hypovolemia -Electrolytes replaced on potassium (3) Hx of aortic valve replacement, mechanical: Plan: -Patient with known history of aortic and mitral mechanical valves, as well as associated CVA -On chronic warfarin with INR goal of 2.5-3.5. Follows up with anticoagulation clinic. -Held warfarin in the setting of possible surgical intervention for ORIF -Placed on heparin drip -- hold 6 hours prior to scheduled surgery time scheduled to resume at 3 PM on 08/23 which is 12 hours postoperatively -Monitor daily INR -Bridge anticoagulation back to warfarin when appropriate after surgery STarted warfarin 2.5 mg on 08/23 will recheck INR on 08/24 ordered additional warfarin 2/5 mg on 08/24 (4) H/O mitral valve replacement with mechanical valve: Plan: As above (5) History of CVA (cerebrovascular accident): Plan: - On ASA 81mg every other day -Holding for now, in setting of upcoming surgery Plan Diet: Heart Healthy VTE ppx: Heparin drip Code Status: Full Admission and Anticipated Discharge Date Admission Date: August 19, 2023 Subjective Patient reports no new symptoms. Review of Systems Review of Systems: All systems reviewed & are unremarkable except as noted in HPI & below Physical Exam Physical Exam: Awake alert appropriate Card exam is regular with mechanical heart valve sounds and murmurs Lungs are clear anteriorly Left hand has a splint with good distal capillary refill and sensation Results & Data Results & Data Vital Signs (Past 12 Hours) Vital Signs Temp Pulse Resp BP Pulse Ox O2 Del Method 08/25/23 11:43 36.5 C 60 18 107/58 L 60 L Room Air 08/25/23 07:36 36.6 C 58 L 18 117/53 L 90 Room Air 08/25/23 03:12 36.6 C 58 L 18 134/66 92 Room Air PG Care Time/CCT Total # of Minutes Spent Total Time Spent with Patient: Total time spent is greater than 50% in coordination of care (as documented) at patient's floor/unit and/or counseling patient: Coding Level of Care Code 87333 SUB INP/OBS CARE 2/35MIN Diagnoses Left wrist fracture S62.102A CKD (chronic kidney disease) stage 4, GFR 15-29 ml/min N18.4 Hx of aortic valve replacement, mechanical Z95.2 H/O mitral valve replacement with mechanical valve Z95.2 History of CVA (cerebrovascular accident) Z86.73
[2023-08-25] MEDS: WARFARIN SOD 2.5 MG TAB PO ONE (13:09)
[2023-08-25] MEDS: POTASSIUM CHLORIDE CRTAB 20 MEQ TABCR PO STA (13:09)
[2023-08-25 19:15] LABS: Hematocrit (blood only) 24.3 % (37.0-47.0); Hemoglobin 8.2 g/dl (12.0-16.0)
[2023-08-26 08:58] LABS: Hematocrit (blood only) 24.3 % (37.0-47.0); Hemoglobin 8.2 g/dl (12.0-16.0); Mean Corpuscular Hemoglobin 30.5 pg (25.0-34.0); Mean Corpuscular Hgb Conc 33.7 g/dL (32.0-36.0); Mean Corpuscular Volume 90.3 fL (80.0-100.0); Mean Platelet Volume 11.3 fL (9.4-12.4); Platelet Count 151 K/uL (130-400); RDW Standard Deviation 52.5 fL (36.4-46.3); Red Blood Count 2.69 M/uL (4.20-5.40); White Blood Count 6.98 K/ul (4.8-10.8)
[2023-08-26 09:01] LABS: ANTI-Xa, UFH(UnfractionatedHep 0.41 IU/ml (0.3-0.7); INR 1.5 (0.9-1.1); Prothrombin Time 16.4 Seconds (9.0-12.0)
[2023-08-26 09:03] LABS: BUN Creatinine Ratio 13.3 (10-20); Creatinine Clr Calc Pharmacy 25.8 ml/min; Est GFR (African American) 35.3 ml/min; Est GFR (Non-African American) 30.5 ml/min; Potassium 3.8 mmol/L (3.5-5.1)
[2023-08-26] MEDS: WARFARIN SOD 2.5 MG TAB PO ONE (18:28)
--- NOTE | 2023-08-26 21:29 | Hospitalist Progress Note ---
Date of Service August 26, 2023 Assessment & Plan (1) Left wrist fracture: Plan: -Left wrist fracture that came as a result of a mechanical fall -Patient able to perform ADLs independently prior to this -Ancef given by EMS and Zosyn given in ED -Left wrist x-ray performed in the ED showing fork deformity -Ortho consulted and seen patient in the ED Irrigated and debrided skin and subcutaneous tissue at patient's bedside Close reduction performed under sedation -Surgical ORIF scheduled for 08/23/2023 at 1200. -Hold heparin starting at 6 AM on day of surgery. Will resume 24 hours after surgery -Acute blood loss anemia, most likely secondary to blood loss from this compound wrist fracture. -Hgb 9.7 on admission -Hgb 7.1 on 08/22/2023-1 unit of blood transfused on 08/22/2023 Hemoglobin stable with appropriate rise after transfusion Started heparin dri[ pm 39 and ordered 2.5 mg of coumadin. reviewed bloodwork on 08/25 (2) CKD (chronic kidney disease) stage 4, GFR 15-29 ml/min: Plan: -Acute on chronic kidney disease -Creatinine on ED labs elevated at 2.32 -Possible that this is related to the patient's fall and consequent hypovolemia -Electrolytes replaced on potassium (3) Hx of aortic valve replacement, mechanical: Plan: -Patient with known history of aortic and mitral mechanical valves, as well as associated CVA -On chronic warfarin with INR goal of 2.5-3.5. Follows up with anticoagulation clinic. -Held warfarin in the setting of possible surgical intervention for ORIF -Placed on heparin drip -- hold 6 hours prior to scheduled surgery time scheduled to resume at 3 PM on 08/23 which is 12 hours postoperatively -Monitor daily INR -Bridge anticoagulation back to warfarin when appropriate after surgery STarted warfarin 2.5 mg on 08/23 will recheck INR on 08/24 ordered additional warfarin 2/5 mg on 08/24 and 08/25 (4) H/O mitral valve replacement with mechanical valve: Plan: As above (5) History of CVA (cerebrovascular accident): Plan: - On ASA 81mg every other day -Holding for now, in setting of upcoming surgery Plan Diet: Heart Healthy VTE ppx: Heparin drip Code Status: Full Admission and Anticipated Discharge Date Admission Date: August 19, 2023 Subjective 73 yo female reports she is moving her hand better. Review of Systems Review of Systems: All systems reviewed & are unremarkable except as noted in HPI & below Physical Exam Physical Exam: Awake alert appropriate Card exam is regular with mechanical heart valve sounds and murmurs Lungs are clear anteriorly Left hand has a splint with good distal capillary refill and sensation Results & Data Results & Data Vital Signs (Past 12 Hours) Vital Signs Temp Pulse Pulse Resp BP BP Pulse Ox 08/26/23 19:00 36.7 C 60 18 113/52 L 92 08/26/23 15:34 36.5 C 60 16 106/41 L 93 08/26/23 15:13 63 08/26/23 11:32 37.1 C 64 16 111/62 90 O2 Del Method 08/26/23 19:00 Room Air 08/26/23 15:34 Room Air 08/26/23 15:13 08/26/23 11:32 Room Air PG Care Time/CCT Total # of Minutes Spent Total Time Spent with Patient: Total time spent is greater than 50% in coordination of care (as documented) at patient's floor/unit and/or counseling patient: Coding Level of Care Code 67220 SUB INP/OBS CARE 2/35MIN Diagnoses Left wrist fracture S62.102A CKD (chronic kidney disease) stage 4, GFR 15-29 ml/min N18.4 Hx of aortic valve replacement, mechanical Z95.2 H/O mitral valve replacement with mechanical valve Z95.2 History of CVA (cerebrovascular accident) Z86.73
[2023-08-27 07:59] LABS: Hemoglobin 8.2 g/dl (12.0-16.0); Mean Corpuscular Hemoglobin 29.8 pg (25.0-34.0); Mean Corpuscular Hgb Conc 32.8 g/dL (32.0-36.0); Mean Corpuscular Volume 90.9 fL (80.0-100.0); Mean Platelet Volume 10.9 fL (9.4-12.4); Platelet Count 172 K/uL (130-400); RDW Coefficient of Variation 16.1 % (11.5-14.5); RDW Standard Deviation 51.9 fL (36.4-46.3); Red Blood Count 2.75 M/uL (4.20-5.40)
[2023-08-27 08:17] LABS: ANTI-Xa, UFH(UnfractionatedHep 0.61 IU/ml (0.3-0.7); BUN Creatinine Ratio 14.5 (10-20); Calcium 8.3 mg/dl (8.6-10.3); Creatinine Clr Calc Pharmacy 26.7 ml/min; Est GFR (African American) 36.9 ml/min; Est GFR (Non-African American) 31.9 ml/min; INR 1.9 (0.9-1.1); Prothrombin Time 19.8 Seconds (9.0-12.0)
[2023-08-27] MEDS: POLYETHYLENE (MIRALAX) 17 GM PACK PO SCH (09:55)
[2023-08-27] MEDS: WARFARIN SOD 2.5 MG TAB PO ONE (16:16)
--- NOTE | 2023-08-27 22:39 | Hospitalist Progress Note ---
Date of Service August 27, 2023 Assessment & Plan (1) Left wrist fracture: Plan: -Left wrist fracture that came as a result of a mechanical fall -Patient able to perform ADLs independently prior to this -Ancef given by EMS and Zosyn given in ED -Left wrist x-ray performed in the ED showing fork deformity -Ortho consulted and seen patient in the ED Irrigated and debrided skin and subcutaneous tissue at patient's bedside Close reduction performed under sedation -Surgical ORIF scheduled for 08/23/2023 at 1200. -Hold heparin starting at 6 AM on day of surgery. Will resume 24 hours after surgery -Acute blood loss anemia, most likely secondary to blood loss from this compound wrist fracture. -Hgb 9.7 on admission -Hgb 7.1 on 08/22/2023-1 unit of blood transfused on 08/22/2023 Hemoglobin stable with appropriate rise after transfusion Started heparin dri[ pm 39 and ordered 2.5 mg of coumadin. reviewed bloodwork on 08/25 Labwork stable on 08/26 repeat warfarin 2.5mg on 08/26 (2) CKD (chronic kidney disease) stage 4, GFR 15-29 ml/min: Plan: -Acute on chronic kidney disease Acute kidney failure -Creatinine on ED labs elevated at 2.32 improved to 1.59 -Possible that this is related to the patient's fall and consequent hypovolemia -Electrolytes replaced on potassium (3) Hx of aortic valve replacement, mechanical: Plan: -Patient with known history of aortic and mitral mechanical valves, as well as associated CVA -On chronic warfarin with INR goal of 2.5-3.5. Follows up with anticoagulation clinic. -Held warfarin in the setting of possible surgical intervention for ORIF -Placed on heparin drip -- hold 6 hours prior to scheduled surgery time scheduled to resume at 3 PM on 08/23 which is 12 hours postoperatively -Monitor daily INR -Bridge anticoagulation back to warfarin when appropriate after surgery STarted warfarin 2.5 mg on 08/23 will recheck INR on 08/24 ordered additional warfarin 2/5 mg on 08/24 and 08/25 (4) H/O mitral valve replacement with mechanical valve: Plan: As above (5) History of CVA (cerebrovascular accident): Plan: - On ASA 81mg every other day -Holding for now, in setting of upcoming surgery Plan Diet: Heart Healthy VTE ppx: Heparin drip Code Status: Full Admission and Anticipated Discharge Date Admission Date: August 19, 2023 Subjective 73 yo female reports no new symptoms. Review of Systems Review of Systems: All systems reviewed & are unremarkable except as noted in HPI & below Physical Exam Physical Exam: Awake alert appropriate Card exam is regular with mechanical heart valve sounds and murmurs Lungs are clear anteriorly Left hand has a splint with good distal capillary refill and sensation Results & Data Results & Data Vital Signs (Past 12 Hours) Vital Signs Temp Pulse Pulse Resp BP BP Pulse Ox 08/27/23 20:30 62 16 94 08/27/23 19:53 36.8 C 62 18 125/76 94 08/27/23 16:28 63 08/27/23 16:23 36.7 C 59 L 20 112/57 L 95 O2 Del Method 08/27/23 20:30 Room Air 08/27/23 19:53 Room Air 08/27/23 16:28 08/27/23 16:23 Room Air PG Care Time/CCT Total # of Minutes Spent Total Time Spent with Patient: Total time spent is greater than 50% in coordination of care (as documented) at patient's floor/unit and/or counseling patient: Coding Level of Care Code 82757 SUB INP/OBS CARE 2/35MIN Diagnoses Left wrist fracture S62.102A CKD (chronic kidney disease) stage 4, GFR 15-29 ml/min N18.4 Hx of aortic valve replacement, mechanical Z95.2 H/O mitral valve replacement with mechanical valve Z95.2 History of CVA (cerebrovascular accident) Z86.73
[2023-08-28 07:17] LABS: ANTI-Xa, UFH(UnfractionatedHep 0.65 IU/ml (0.3-0.7); INR 2.7 (0.9-1.1); Prothrombin Time 28.1 Seconds (9.0-12.0)
[2023-08-28] MEDS: WARFARIN SOD 1.25 MG TAB PO ONE (14:19)
--- NOTE | 2023-08-28 22:56 | Hospitalist Progress Note ---
Date of Service August 28, 2023 Assessment & Plan (1) Left wrist fracture: Plan: -Left wrist fracture that came as a result of a mechanical fall -Patient able to perform ADLs independently prior to this -Ancef given by EMS and Zosyn given in ED -Left wrist x-ray performed in the ED showing fork deformity -Ortho consulted and seen patient in the ED Irrigated and debrided skin and subcutaneous tissue at patient's bedside Close reduction performed under sedation -Surgical ORIF scheduled for 08/23/2023 at 1200. -Hold heparin starting at 6 AM on day of surgery. Will resume 24 hours after surgery -Acute blood loss anemia, most likely secondary to blood loss from this compound wrist fracture. -Hgb 9.7 on admission -Hgb 7.1 on 08/22/2023-1 unit of blood transfused on 08/22/2023 Hemoglobin stable with appropriate rise after transfusion Started heparin dri[ pm 39 and ordered 2.5 mg of coumadin. reviewed bloodwork on 08/25 Labwork stable on 08/26 repeat warfarin 2.5mg on 08/26 INR now therapeutic. Warfarin 1.25 mg on 08/27 (2) CKD (chronic kidney disease) stage 4, GFR 15-29 ml/min: Plan: -Acute on chronic kidney disease Acute kidney failure -Creatinine on ED labs elevated at 2.32 improved to 1.59 -Possible that this is related to the patient's fall and consequent hypovolemia -Electrolytes replaced on potassium (3) Hx of aortic valve replacement, mechanical: Plan: -Patient with known history of aortic and mitral mechanical valves, as well as associated CVA -On chronic warfarin with INR goal of 2.5-3.5. Follows up with anticoagulation clinic. -Held warfarin in the setting of possible surgical intervention for ORIF -Placed on heparin drip -- hold 6 hours prior to scheduled surgery time scheduled to resume at 3 PM on 08/23 which is 12 hours postoperatively -Monitor daily INR -Bridge anticoagulation back to warfarin when appropriate after surgery STarted warfarin 2.5 mg on 08/23 will recheck INR on 08/24 ordered additional warfarin 2/5 mg on 08/24 and 08/25 and 08/26 On 08/27 warfarin 1.25mg will discontinue heparin on 08.28 if INR remains therapeutic (4) H/O mitral valve replacement with mechanical valve: Plan: As above (5) History of CVA (cerebrovascular accident): Plan: - On ASA 81mg every other day -Holding for now, in setting of upcoming surgery Plan Diet: Heart Healthy VTE ppx: Heparin drip Code Status: Full Admission and Anticipated Discharge Date Admission Date: August 19, 2023 Subjective Patient reports she is able to move her left fingers more. She has no new complaints. Review of Systems Review of Systems: All systems reviewed & are unremarkable except as noted in HPI & below Physical Exam Physical Exam: Awake alert appropriate Card exam is regular with mechanical heart valve sounds and murmurs Lungs are clear anteriorly Left hand has a splint with good distal capillary refill and sensation Results & Data Results & Data Vital Signs (Past 12 Hours) Vital Signs Temp Pulse Pulse Resp BP BP Pulse Ox 08/28/23 19:27 36.9 C 66 18 128/54 L 93 08/28/23 15:47 36.9 C 85 16 118/56 L 96 08/28/23 15:00 65 08/28/23 11:16 37.2 C 69 16 130/49 L 91 O2 Del Method 08/28/23 19:27 Room Air 08/28/23 15:47 Room Air 08/28/23 15:00 08/28/23 11:16 Room Air PG Care Time/CCT Total # of Minutes Spent Total Time Spent with Patient: Total time spent is greater than 50% in coordination of care (as documented) at patient's floor/unit and/or counseling patient: Coding Level of Care Code 37222 SUB INP/OBS CARE 2/35MIN Diagnoses Left wrist fracture S62.102A CKD (chronic kidney disease) stage 4, GFR 15-29 ml/min N18.4 Hx of aortic valve replacement, mechanical Z95.2 H/O mitral valve replacement with mechanical valve Z95.2 History of CVA (cerebrovascular accident) Z86.73
[2023-08-29 08:23] LABS: ANTI-Xa, UFH(UnfractionatedHep 0.66 IU/ml (0.3-0.7); INR 2.8 (0.9-1.1); Prothrombin Time 28.8 Seconds (9.0-12.0)
--- NOTE | 2023-08-29 14:51 | Discharge Summary ---
Date of Service August 29, 2023 Admission HPI Per Admitting Provider Ms. Muñoz is a 73 y/o female with PMHx of mechanical aortic valve, mechanical mitral valve, chronic warfarin therapy (goal of 2.5-3.5), prior CVA, HTN, HLD, CKD-IV, pSVT, RLS, Hypothyroidism, and BIRDIE who came to the ED through EMS after she sustained a mechanical fall in the porch of her home. She was helping her son carry a mattress when she slipped/lost her footing and fell down with her wrist catching on the porch fence, resulting in her open left wrist fracture. Denies any preceding lightheadedness, dizziness, diaphoresis, palpitations, or any other symptom. She does not think she hit her head and denies any LOC. She does not have history of recurrent falls and is usually able to do her ADLs independently. After her fall, they called EMS and there they gave her IV morphine, 4 mg of IV Zofran, and 2g of Ancef. They noted a decrease in her oxygenation and started her on oxygen as well. On arrival to the ED, she received 1 dose of Zosyn and Tdap vaccine since she was not up to date. ortho (Dr. Jones) was consulted and they performed wound cleansing and fracture reduction under sedation. Labs/Imaging: CBC showing anemia with Hgb of 9.7, and no leukocytosis, platelets of 187, CMP with no electrolyte abnormalities, and Creatinine elevated from her baseline (2.32), and no other abnormality. CXR unremarkable, Left wrist X-ray showing fork deformity, Head CT without acute abnormalities, C-spine CT without acute abnormality. Admission Exam Per Admitting Provider GENERAL: Awake alert oriented in all spheres, afebrile, no acute distress HEAD: Atraumatic, normocephalic EYES: EOM intact THROAT: Normal to visual CHEST: Symmetric chest expansion with respirations, no obvious deformity CARDIO: Regular rate and rhythm PULMONARY: Clear to auscultation bilaterally, normal respiratory effort, no respiratory distress GI: Soft, nondistended, nontender : No Garcia EXTREMITIES: Bilateral lower extremities without obvious deformities, no swelling in bilateral lower extremities, no calf tenderness bilaterally, right upper extremity without obvious deformity, left upper extremity covered with soft cast SKIN: No rashes Principal Diagnosis Open fracture of left distal radius - s/p ORIF Mechanical aortic and mitral valves, on warfarin Discharge Exam General: No acute distress, nondiaphoretic, well-developed, well-nourished. Skin: Left arm in sling. Splint and Eitan wrap intact. Left fingertips are warm and well perfused. The skin was without rashes, erythema, edema, or bruising. Cardiac: Regular rate and rhythm. Mechanical valve click. Pulm: Clear to auscultation bilaterally without wheezes, rales or rhonchi. No retractions or accessory muscle use. Abdominal: Positive bowel sounds x 4. Soft, nontender, without masses or organomegaly. No guarding or rebound tenderness. Neuro: A&O x3. No focal neurological deficits. Discharge Data Allergies Allergy/AdvReac Type Severity Reaction Status Date / Time doxycycline Allergy Unknown CAN'T Verified 08/19/23 22:01 REMEMBER sulfamethoxazole Allergy Unknown CAN'T Verified 08/19/23 22:01 REMEMBER trimethoprim Allergy Unknown CAN'T Verified 08/19/23 22:01 REMEMBER Consultations 08/19/23 21:49 Consult Orthopedic Surgery Stat 08/19/23 21:50 ED Decision to Admit Stat Procedures Performed Operation Date: 08/23/23 15:00 Actual Procedures p Left Distal Radius Fracture Open Reduction Internal Fixation, Irrigation and Debridement Open Fracture(Left) - Odilon Jones MD Ordered Studies 08/19/23 FL wrist LT 2V Routine 08/19/23 20:37 CT cervical spine wo con Stat CT head/brain wo con Stat 08/23/23 12:00 FL wrist LT 2V Routine 08/23/23 13:43 US - OR guided needle placemen Routine Hospital Course (1) Left wrist fracture: -Left wrist fracture that came as a result of a mechanical fall -Patient able to perform ADLs independently prior to this -Ancef given by EMS and Zosyn given in ED -Left wrist x-ray performed in the ED showing fork deformity -Ortho consulted and seen patient in the ED Irrigated and debrided skin and subcutaneous tissue at patient's bedside Close reduction performed under sedation -Surgical ORIF scheduled for 08/23/2023 at 1200. -Hold heparin starting at 6 AM on day of surgery. Will resume 24 hours after surgery -Acute blood loss anemia, most likely secondary to blood loss from this compound wrist fracture. -Hgb 9.7 on admission -Hgb 7.1 on 08/22/2023-1 unit of blood transfused on 08/22/2023 -Hemoglobin stable with appropriate rise after transfusion -Bridged to heparin and warfarin -INR now in therapeutic window (between 2.5-3.5) on 08/29/2023 -Short course of oxycodone prescribed on discharge -- Follow-up with Ortho as appropriate -Discharge home with [facility] (2) CKD (chronic kidney disease) stage 4, GFR 15-29 ml/min: -Acute on chronic kidney disease Acute kidney failure -Creatinine on ED labs elevated at 2.32 improved to 1.59 -Possible that this is related to the patient's fall and consequent hypovolemia -Electrolytes repleted (3) Hx of aortic valve replacement, mechanical: -Patient with known history of aortic and mitral mechanical valves, as well as associated CVA -On chronic warfarin with INR goal of 2.5-3.5. Follows up with anticoagulation clinic. -Held warfarin in the setting of possible surgical intervention for ORIF -Placed on heparin drip -- hold 6 hours prior to scheduled surgery time scheduled to resume at 3 PM on 08/23 which is 12 hours postoperatively -Monitor daily INR -Bridge anticoagulation back to warfarin when appropriate after surgery -Warfarin 2.5 mg on 08/23, 08/24, 08/25, and 08/27/23 -Warfarin 1.25 mg on 08/28/23 -Discontinued heparin on 08/28, since INR remained within therapeutic range -Resume home warfarin regimen upon discharge (4) H/O mitral valve replacement with mechanical valve: As above (5) History of CVA (cerebrovascular accident): - On ASA 81mg every other day Plan Code Status: Full Total Time Total Time Spent Total Time Spent (In Minutes): Greater than 30 minutes spent completing this discharge process including direct patient care, medication reconciliation, documentation, review of labs and images, and coordination of care. Discharge Plan Discharge Items Patient Disposition: Home - Home Health Services Reason For Visit: WRIST FRACTURE Discharge Diagnosis: Wrist fracture surgical ORIF (open reduction and internal fixation) Activity: Per Instructions section Non-emergency contact: Primary Care Provider and Surgeon Call non-emergency contact if: your symptoms worsen Follow-up/Referrals: Abigail Saldana MD [Primary Care Provider] - 03/21/24 10:20 am Odilon Jones MD [Physician] - (Call to schedule a follow-up 10-14 days from the date of surgery.) Diet: Heart Healthy Javier Attending Provider Instructions: You were admitted to the hospital due to a left wrist fracture that required surgical reduction. Because of being on warfarin at home, we had to bridge you to heparin for surgery, and then back to warfarin in the postoperative setting. You are now within your target range for warfarin therapy (2.5-3.5). You can continue your home warfarin regimen upon discharge from the hospital. Additionally, I have prescribed a short course of oxycodone for pain management. -- I recommend consistently taking acetaminophen (Tylenol) 1000 mg every 8 hours as needed, before taking the oxycodone. -- Use the oxycodone for additional pain management on top of the Tylenol. You have an appointment scheduled with your PCP on 09/05/2023 at 10:20 AM. Call the orthopedics office to schedule follow-up appointment for 10-14 days from the date of your surgery. -- Javier [employer] Provider Instructions: ACTIVITY RECOMMENDATIONS: * Avoid lifting anything until your first post operative visit. SPECIAL CARE INSTRUCTIONS: * Your bandage should be left in place until seen back in the office in 10-14 days from surgery. * Some drainage onto the dressing may occur. This is normal. * If the bandage feels excessively tight, you may loosen the elastic bandage. Then call the physician's office for further instructions. * If possible, keep your hand elevated above the level of your heart for the first 2 post operative days. You may use a sling if necessary. * You should move your fingers regularly (50-100 motions per hour) unless otherwise instructed. SPECIAL PRECAUTIONS: * If you notice increased drainage, fever over 101 degrees F. or severe, unremitting pain, call your physician/office at . * You may have been prescribed pain medication. If you experience nausea and/or skin rash, discontinue this medication and contact our office for an alternative medication. FOLLOW UP VISIT: If appointment is not already scheduled: Please call [facility] to make a follow-up appointment for 10-14 days after your surgery at . Pending Studies at Discharge: No Stand-Alone Forms: My [facility], Smoking Cessation Medications and DC Order Prescriptions: New oxycodone 5 mg Tablet 5 mg PO Q6H PRN (Reason: pain) Qty: 10 0RF Continued aspirin 81 mg tablet,chewable 81 mg PO Q OTHER DAY pramipexole 0.125 mg tablet 0.125 mg PO QPM Qty: 30 1RF Rx Instructions: administer 2 - 3 hours before bedtime 0.125 mg PO qpm x7 days, then may incr. to 0.25 mg PO qpm x7 days, then may incr. to 0.5 mg PO qpm; folic acid 1 mg tablet 1 mg PO DAILY Qty: 90 1RF allopurinol 100 mg tablet 100 mg PO DAILY Qty: 90 3RF isosorbide mononitrate 30 mg tablet extended release 24 hr 30 mg PO QAM Qty: 90 3RF pregabalin [Lyrica] 100 mg capsule 100 mg PO PM Qty: 90 0RF amlodipine 2.5 mg tablet 2.5 mg PO DAILY atorvastatin 40 mg tablet 40 mg PO DAILY triamcinolone acetonide 0.1 % cream 1 applic topical BID PRN (Reason: Skin Irritation) citalopram 20 mg tablet 20 mg PO QAM levothyroxine 50 mcg tablet 50 mcg PO QAM warfarin 2.5 mg tablet See Rx Instructions PO .COMPLEX Rx Instructions: 2.5 mg q Mo, We, Fr and 1.25 mg x Sun, Tues, Thurs, & Sat. orally; metoprolol succinate 25 mg tablet extended release 24 hr 25 mg PO BID Discharge Orders: Discharge Order (Routine); Ordered 08/29/23 Ordered By: Yesi Newby/Other Patient Handouts: Oxycodone Oral Tablet 5 mg Admission Data Admit Date/Time: 08/19/23 22:44 Attending Provider: Sherif Harmon Admit Provider: Kathe Mckeon Primary Care Provider: Abigail Saldana Other Providers: Odilon Jones; Manuel Clark Other Interventions: Discharge Summary Assessment (RN) Last Done: 08/29/23 14:30 Coding Level of Care Code 34774 INP/OBS DISCH >30 MIN Diagnoses Left wrist fracture S62.102A CKD (chronic kidney disease) stage 4, GFR 15-29 ml/min N18.4 Hx of aortic valve replacement, mechanical Z95.2 H/O mitral valve replacement with mechanical valve Z95.2 History of CVA (cerebrovascular accident) Z86.73
[2023-08-29] MEDS ORDERED: WARFARIN SOD 1.25 MG TAB PO SCH (16:00)
[2023-08-30] MEDS ORDERED: WARFARIN SOD 2.5 MG TAB PO SCH (16:00)
== END 2023-08-29 14:31 | disposition home health service (06) | DRG 501 ==
LOC: ED 19:44 → SUATTDRO 22:44 → EDINP 22:44 → 2N 23:27

== ENCOUNTER 2024-05-14 14:56 | Inpatient (IN) ==
--- NOTE | 2024-05-14 15:09 | CT Scan Report ---
EXAM: CT Head Without Intravenous Contrast INDICATION: Unspecified neurologic deficit. TECHNIQUE: Axial computed tomography images of the head/brain without intravenous contrast. Sagittal and/or coronal reformats are provided. Sagittal and coronal reformatted images were created and reviewed. This CT exam was performed using one or more of the following dose reduction techniques: automated exposure control, adjustment of the mA and/or kV according to patient size, and/or use of iterative reconstruction technique. COMPARISON: No relevant prior studies available. FINDINGS: Limitations: Motion artifact limits assessment of the anterior convexity. Brain and extra-axial spaces: There is age appropriate cortical atrophy and chronic ischemic periventricular white matter hypodensity. No acute infarct, hemorrhage or mass noted. Old left thalamic lacunar infarct. Bones/joints: No acute changes. Soft tissues: No significant abnormality noted. Vasculature: No acute abnormality noted. Sinuses: No layering fluid in the visualized portions of the paranasal sinuses. Mastoid air cells: No mastoid effusion. Orbits: No significant abnormality noted. IMPRESSION: Limited as above. No acute abnormality. Findings discussed by phone with Dr. Marvin Dumont ACT 112: Negative or not required by law. Electronically signed by Christa Barraza 05-14-2024 3:09 PM
--- NOTE | 2024-05-14 15:22 | Emergency Department Note ---
Impression & Plan Expressive aphasia, Stroke-like symptoms ED Provider Note NAME: CHEYANNE JETER AGE: 74 SEX: Female INFORMANT: Patient, EMS, ED PROVIDER(S): Marvin Dumont MD CHIEF COMPLAINT: Strokelike symptoms PLAN: Disposition: Admitted Outpatient prescription management: none Referral: None MEDICAL DECISION MAKING: Patient presented because of strokelike symptoms. She was made a stroke alert prehospital. She was taken emergently to CT imaging. Record review indicated that she had chronic renal insufficiency therefore dry CT performed. Angiography was initially held. Patient's laboratory testing revealed an unremarkable CBC and chemistry panel. Chronic ischemic changes noted on CT imaging without acute hemorrhage. Patient was reassessed multiple times and was still having issues with expressive aphasia. She was following commands well. Family arrived and I did discuss the presentation with the patient's . He noted she had a similar issue in the past with a urinary tract infection situation. Catheter urinalysis was ordered and performed. Urinalysis does not reveal any convincing evidence of infection. The patient does have some red blood cells there but nursing noted it was challenging to obtain a urine sample. Patient's INR is elevated at 3.0. Chest imaging reveals no acute changes. Patient will require further management in the hospital. In light of the negative metabolic workup and possibility of acute CVA I did discuss the case with [place] telestroke, Dr. Pablo. Patient is not a TNK candidate given her anticoagulation. He did recommend CT angiography a even in light of her CKD. Patient had angiography done and no LVO. The patient had some improvement of her speech. Consultation was made with Dr. Cristhian Edgar of the [facility] service. Patient was evaluated in the ER for further management. Care/management discussed with: none Level of care consideration(s): After review of the information above and other included data, I feel the patient requires escalation of care to admission. Triage Nursing notes: reviewed and agree them. Vital Signs: reviewed and remarkable for no significant abnormalities Additional History obtained from: EMS, family. states the patient was in normal state of health this morning before symptoms started around 1320 hrs. Chronic Medical/Social Conditions affecting care: Chronic anticoagulation Prior/ Outside/ External records reviewed: Prior ED visit record reviewed regarding her recent GI illness. Differential Diagnosis: CVA, TIA,Infection, dehydration, metabolic abnormality, hypo/hyperglycemia, electrolyte disturbance, anemia, hypoxia, cardiac sources, intracerebral event, toxicologic, neurologic, as well as other pathologies. Diagnostics, independently interpreted by me: ECG: Twelve-lead ECG reveals a normal sinus rhythm at 75 bpm. LVH with repolarization abnormality present. No ST elevation. When compared to ECG of 08/20/23 there is no significant change. Repolarization abnormality present. Cardiac Monitoring: Cardiac monitoring ordered by me: The patient was placed on continuous cardiac monitoring and observed. It revealed a normal sinus rhythm at 76 beats per minute without ectopy or evidence of dysrhythmia. Medical decision rules: none Imaging studies: Head CT: A noncontrast CT scan of the head was performed and was negative for tumor, fracture, intracranial hemorrhage, or other acute pathology. Old ischemic findings present. Discussed with Dr. Barraza radiology. HPI: 74 year old Female arrives for evaluation of strokelike symptoms. EMS noted patient had expressive aphasia. This started at 1320 hrs., about 1 hour and 40 minutes prior to arrival and is persisting. The patient also notes the following associated symptoms, none. Family told EMS that this happened 1 time before and patient had a UTI. She does have history of CVA. Patient is also anticoagulated due to mechanical heart valves. She had a supratherapeutic INR noted this week. The patient has been given no medication by EMS for relieving factors. Current pain is rated as 0/10. Patient is able to answer yes and no by nodding. She denies any headache, passing out, visual changes, neck pain, back pain, chest pain, abdominal pain, nausea, vomiting, diarrhea, melena, leg weakness. PAST MEDICAL HISTORY: See Below, CVA, CKD, SVT PAST SURGICAL HISTORY: See Below, mitral and aortic valve replacement SOCIAL HISTORY: See Below, retired HOME MEDICATIONS: See Below ALLERGIES: See Below VITALS: See Below PHYSICAL EXAMINATION: GENERAL: Awake, alert, anxious-appearing, in no distress HENT: Normocephalic, atraumatic. Oropharynx unremarkable. EYES: Normal conjunctiva. Sclera non-icteric. PERRLA. EOMI NECK: Inspection normal. Non-tender. Supple. No nuchal rigidity. FROM. No masses. RESPIRATORY: Clear to auscultation. No wheezes. No rales. Normal respiratory effort. CARDIAC: Normal rate. Normal rhythm. No murmurs. No rubs. Extremities warm and well perfused. Pulses equal. No JVD. GI: Soft, non-distended. No tenderness to palpation. No rebound or guarding. No masses. RECTAL: Deferred. MUSCULOSKELETAL: Atraumatic. Chest examination reveals no tenderness. The back is symmetrical on inspection without obvious abnormality. There is no CVA tenderness to palpation. No joint edema. LOWER EXTREMITIES: Calves are equal size bilaterally and non-tender. No edema. No discoloration. NEURO: Normal sensorium. No sensory or motor deficits noted. No drift. Patient had some difficulty with rapid alternating movements in the upper extremities. There is expressive aphasia present. No obvious receptive aphasia. SKIN: No rash or jaundice noted. PROCEDURES: none CRITICAL CARE: none OBSERVATION NOTE: none Past Med/Surg History Problem List (Updated 05/14/24 @ 16:50 by Abeba Salgado PA-C) Hypomagnesemia Hypokalemia Stroke-like symptoms (Acute) Expressive aphasia (Acute) Diarrhea (Acute) Chills (without fever) (Acute) Hematuria Proteinuria Acute kidney injury Osteoporosis Chronic anemia Vitamin D deficiency Warfarin anticoagulation (Acute) CKD (chronic kidney disease) stage 4, GFR 15-29 ml/min Hx of aortic valve replacement, mechanical H/O mitral valve replacement with mechanical valve Effusion of knee joint right (Acute) Ambulatory dysfunction Dizziness Paroxysmal SVT (supraventricular tachycardia) (Chronic) Chronic constipation (Chronic) RLS (restless legs syndrome) (Chronic) Chronic pain (Chronic) Hypertension (Chronic) BIRDIE (obstructive sleep apnea) (Chronic) Dyslipidemia (Chronic) Hypothyroidism (Chronic) Medical History Open fracture of left distal radius (08/19/23) from a fall-saw orthopedics in the ED and was admitted to [facility] per ortho note History of CVA (cerebrovascular accident) History of transfusion of packed RBC 08/2023 1 unit CKD (chronic kidney disease), stage III Surgical History S/P ORIF (open reduction internal fixation) fracture Lt distal radius 08/23/23 Dr. 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 Beliefs That Will Affect Care: None marital status: Current Living Situation: Spouse and Family Current Living Situation Comment: Lives with and their son current occupational status: retired How many Children do You have: 2 Feels Safe at Home: Yes Childhood Exposure to Second-Hand Smoke: No Diet: regular Diet Comment: regular caffeine: No Dental Care, Regularly: No Physical Activity Frequency: Does not Exercise Seatbelt Use: always Sunscreen Use: No Assistive Devices: None Allergies Allergies Allergy/AdvReac Type Severity Reaction Status Date / Time doxycycline Allergy Unknown CAN'T Verified 05/14/24 18:20 REMEMBER sulfamethoxazole Allergy Unknown CAN'T Verified 05/14/24 18:20 REMEMBER trimethoprim Allergy Unknown CAN'T Verified 05/14/24 18:20 REMEMBER Home Meds Home Medications Medication Instructions Recorded Confirmed atorvastatin 40 mg tablet 40 mg PO HS 07/19/23 05/14/24 triamcinolone acetonide 0.1 % 1 applic topical BID PRN Skin 07/19/23 05/14/24 topical cream Irritation aspirin 81 mg chewable tablet 81 mg PO Q OTHER DAY 08/12/23 05/14/24 metoprolol succinate 25 mg 25 mg PO BID 08/19/23 05/14/24 tablet,extended release 24 hr folic acid 1 mg tablet 1 mg PO Q OTHER DAY 05/13/24 05/14/24 warfarin 2 mg tablet See Rx Instructions PO UD 05/13/24 05/14/24 amlodipine 2.5 mg tablet 0 mg PO QAM 05/14/24 05/14/24 lisinopril 5 mg tablet 5 mg PO HS 05/14/24 05/14/24 Previous Rx's Medication Instructions Recorded allopurinol 100 mg tablet 100 mg PO DAILY #90 tabs 07/19/23 isosorbide mononitrate 30 mg 30 mg PO QAM #90 tabs 07/19/23 tablet,extended release 24 hr levothyroxine 50 mcg tablet 50 mcg PO QAM #90 tabs 01/06/24 calcium 600 mg (as 1 tab PO DAILY #90 tabs 03/10/24 carbonate)-vitamin D3 10 mcg (400 unit) tablet citalopram 20 mg tablet 20 mg PO QAM #90 tabs 03/10/24 pramipexole 0.125 mg tablet 0.125 mg PO QPM #90 tabs 04/21/24 pregabalin 100 mg capsule (Lyrica) 100 mg PO PM #90 caps 04/21/24 Results & Data (ED) Vital Signs Vital Signs - 24 hr 05/14/24 15:02 05/14/24 15:05 05/14/24 15:10 Temperature 37.2 C Temperature Source Oral Pulse Rate 83 77 76 Pulse Rate [Right Finger] Pulse Rate from SpO2 Sensor Pulse Rhythm Regular Pulse Rhythm [Right Finger] Pulse Strength Normal Pulse Strength [Right Finger] Respiratory Rate 18 18 Respiratory Effort / Characteristics Non-Labored Respiratory Depth Normal Respiratory Pattern Regular Blood Pressure 157/71 H 157/71 H Blood Pressure [Right Arm] Blood Pressure Mean 99 127 Blood Pressure Mean [Right Arm] Blood Pressure Position Lying Blood Pressure Position [Right Arm] Pulse Oximetry Oxygen Delivery Method Room Air Sepsis Recent Fever Within 48 Hours No Sepsis New/Unexplained Change in Mental Status N/A Sepsis Action Taken by Nursing No Action Required 05/14/24 15:56 05/14/24 16:03 05/14/24 16:30 Temperature Temperature Source Pulse Rate 74 71 Pulse Rate [Right Finger] 73 Pulse Rate from SpO2 Sensor 73 Pulse Rhythm Pulse Rhythm [Right Finger] Regular Pulse Strength Pulse Strength [Right Finger] Normal Respiratory Rate 31 H 18 18 Respiratory Effort / Characteristics Non-Labored Respiratory Depth Normal Respiratory Pattern Regular Blood Pressure 126/57 L 116/55 L Blood Pressure [Right Arm] 137/66 Blood Pressure Mean 80 79 Blood Pressure Mean [Right Arm] 89 Blood Pressure Position Blood Pressure Position [Right Arm] Lying Pulse Oximetry 95 98 98 Oxygen Delivery Method Room Air Sepsis Recent Fever Within 48 Hours Sepsis New/Unexplained Change in Mental Status Sepsis Action Taken by Nursing 05/14/24 17:00 Temperature Temperature Source Pulse Rate 68 Pulse Rate [Right Finger] Pulse Rate from SpO2 Sensor Pulse Rhythm Pulse Rhythm [Right Finger] Pulse Strength Pulse Strength [Right Finger] Respiratory Rate 22 Respiratory Effort / Characteristics Respiratory Depth Respiratory Pattern Blood Pressure 120/57 L Blood Pressure [Right Arm] Blood Pressure Mean 68 Blood Pressure Mean [Right Arm] Blood Pressure Position Blood Pressure Position [Right Arm] Pulse Oximetry 96 Oxygen Delivery Method Sepsis Recent Fever Within 48 Hours Sepsis New/Unexplained Change in Mental Status Sepsis Action Taken by Nursing Laboratory Data 05/14/24 15:05 05/14/24 15:05 Lab Results 05/14/24 05/14/24 05/14/24 Range/Units 15:05 15:19 15:53 WBC 10.12 (4.8-10.8) K/ul RBC 3.32 L (4.20-5.40) M/uL Hgb 10.4 L (12.0-16.0) g/dl POC Hgb 10.9 L (12.0-16.0) g/dl Hct 31.0 L (37.0-47.0) % POC Hct 32 L (37-47) % MCV 93.4 (80.0-100.0) fL MCH 31.3 (25.0-34.0) pg MCHC 33.5 (32.0-36.0) g/dL RDW Std Deviation 52.7 H (36.4-46.3) fL RDW Coeff of Gisele 15.5 H (11.5-14.5) % Plt Count 204 (130-400) K/uL MPV 11.4 (9.4-12.4) fL Immature Gran % (Auto) 0.6 % Neut % (Auto) 76.2 % Lymph % (Auto) 10.8 % [place] % (Auto) 9.1 % Eos % (Auto) 3.0 % Baso % (Auto) 0.3 % Neut # (Auto) 7.72 H (1.40-6.50) K/uL Lymph # (Auto) 1.09 L (1.20-3.40) K/uL [place] # (Auto) 0.92 H (0.11-0.59) K/uL Eos # (Auto) 0.30 (0.00-0.50) K/uL Baso # (Auto) 0.03 (0.00-0.20) K/uL Immature Gran # (Auto) 0.06 (0.01-0.20) K/uL PT 29.1 H (9.0-12.0) Seconds INR 3.0 H (0.9-1.1) APTT 42 H (21-31) Seconds PTT Ratio 1.6 POC Sodium 140 (135-144) mmol/L Sodium 139 (136-145) mmol/L POC Potassium 3.6 (3.3-5.0) mmol/L Potassium 3.7 (3.5-5.1) mmol/L POC Chloride 104 (101-112) mmol/L Chloride 106 (98-107) mmol/L Carbon Dioxide 26 (21-32) mmol/L POC Total CO2 24 (24-31) mmol/L Anion Gap 7 (3-11) POC Anion Gap 17.0 (16-25) mmol/L POC BUN 35 H (7-18) mg/dl BUN 37 H (6-23) mg/dl Creatinine 1.88 H (0.6-1.2) mg/dl POC Creatinine 2.7 H (0.6-1.3) mg/dl Est Cr Clr Drug Dosing 21.7 ml/min eGFR 27.72 BUN/Creatinine Ratio 19.7 (10-20) Glucose 190 H (70-99(Fasting)) mg/dl POC Glucose (other) 183 H (70-99) mg/dl Calcium 9.1 (8.6-10.3) mg/dl POC Ioniz Calcium [place] 1.04 L (1.12-1.32) mmol/l Magnesium 1.6 L (1.7-2.4) mg/dl Total Bilirubin 1.1 H (0.2-1.0) mg/dl AST 17 (13-39) U/L ALT 7 (7-52) U/L Alkaline Phosphatase 93 (34-104) U/L Troponin I High Sens 11.8 (0-14) pg/ml Total Protein 7.0 (6.0-8.3) gm/dl Albumin 4.0 (3.4-5.0) gm/dl Globulin 3.0 (2.5-4.0) gm/dl Albumin/Globulin Ratio 1.3 (0.9-2) Urine Color Yellow Urine Appearance Clear (Clear) Urine pH 5.0 (4.5-7.5) Ur Specific [place] 1.019 (1.000-1.030) Urine Protein Trace H (Negative) Urine Glucose (UA) 1+ H (Negative) Urine Ketones Negative (Negative) Urine Blood 3+ H (Negative) Urine Nitrite Negative (Negative) Urine Bilirubin Negative (Negative) Urine Urobilinogen Negative (Negative) Ur Leukocyte Esterase Negative (Negative) Urine WBC (Auto) 0-5 (0-5) /hpf Urine RBC (Auto) >20 H (0-2) /hpf U Hyaline Cast (Auto) 3-5 H (0-2) /lpf U Epithel Cells (Auto) 0-2 (0-2) /hpf Urine Bacteria (Auto) None Seen (None Seen) Blood Type O Positive Antibody Screen NEGATIVE Administered Medications Magnesium Oxide (Magnesium Oxide 400 Mg Tab) 400 mg PO QAM OLGA Stop: 06/13/24 18:14 Last Admin: 05/14/24 18:25 Dose: 400 mg Documented By: NRB Discontinued Medications Ioversol (Optiray 320 125ml) 119 ml IV ONCE ONE Stop: 05/14/24 17:07 Last Admin: 05/14/24 17:10 Dose: 119 ml Documented By: PLW Potassium Chloride (Potassium Chloride Crtab 20 Meq Tabcr) 40 meq PO NOW STA Stop: 05/14/24 18:05 Last Admin: 05/14/24 18:25 Dose: 40 meq Documented By: NRB Imaging Data Radiologist's Impression: Chest X-Ray 05/14/24 14:53 EXAM: Radiograph of the Chest 1 View INDICATION: Neurologic deficits. TECHNIQUE: Frontal view of the chest. COMPARISON: 05/09/2024 FINDINGS: Lungs and pleural spaces: Chronic interstitial scarring present. No consolidation or pulmonary edema. No pleural effusion or pneumothorax. Heart: Cardiomegaly and valve prosthesis unchanged. Mediastinum: Normal contour. Bones/joints: No fracture, erosion or dislocation. Soft tissues: No abnormality noted. No radiopaque foreign body noted. Upper abdomen: No abnormality noted. IMPRESSION: Stable chronic changes. No acute disease. ACT 112: Negative or not required by law. Electronically signed by Christa Barraza 05-14-2024 4:[address] 05/14/24 14:53 EXAM: CT Head Without Intravenous Contrast INDICATION: Unspecified neurologic deficit. TECHNIQUE: Axial computed tomography images of the head/brain without intravenous contrast. Sagittal and/or coronal reformats are provided. Sagittal and coronal reformatted images were created and reviewed. This CT exam was performed using one or more of the following dose reduction techniques: automated exposure control, adjustment of the mA and/or kV according to patient size, and/or use of iterative reconstruction technique. COMPARISON: No relevant prior studies available. FINDINGS: Limitations: Motion artifact limits assessment of the anterior convexity. Brain and extra-axial spaces: There is age appropriate cortical atrophy and chronic ischemic periventricular white matter hypodensity. No acute infarct, hemorrhage or mass noted. Old left thalamic lacunar infarct. Bones/joints: No acute changes. Soft tissues: No significant abnormality noted. Vasculature: No acute abnormality noted. Sinuses: No layering fluid in the visualized portions of the paranasal sinuses. Mastoid air cells: No mastoid effusion. Orbits: No significant abnormality noted. IMPRESSION: Limited as above. No acute abnormality. Findings discussed by phone with Dr. Marvin Dumont ACT 112: Negative or not required by law. Electronically signed by Christa Barraza 05-14-2024 3:09 PM Head CTA 05/14/24 16:47 EXAM: CT Angiography Head With Intravenous Contrast INDICATION: Aphasia. TECHNIQUE: Axial computed tomographic angiography images of the head with intravenous contrast. Sagittal and coronal reformatted images were created and reviewed. This CT exam was performed using one or more of the following dose reduction techniques: automated exposure control, adjustment of the mA and/or kV according to patient size, and/or use of iterative reconstruction technique. MIP reconstructed images were created and reviewed. CONTRAST: 119ml of Optiray 320 was administered intravenously. COMPARISON: No relevant prior studies available. FINDINGS: Right internal carotid artery: No acute change noted. Intracranial segment is patent with no significant stenosis. No aneurysm. Right anterior cerebral artery: No abnormality noted. No occlusion or significant stenosis. No aneurysm. Right middle cerebral artery: No abnormality noted. No occlusion or significant stenosis. No aneurysm. Right posterior cerebral artery: No abnormality noted. No occlusion or significant stenosis. No aneurysm. Right vertebral artery: No significant abnormality noted. Left internal carotid artery: No acute change noted. Intracranial segment is patent with no significant stenosis. No aneurysm. Left anterior cerebral artery: No abnormality noted. No occlusion or significant stenosis. No aneurysm. Left middle cerebral artery: No abnormality noted. No occlusion or significant stenosis. No aneurysm. Left posterior cerebral artery: No abnormality noted. No occlusion or significant stenosis. No aneurysm. Left vertebral artery: No significant abnormality noted. Basilar artery: No abnormality noted. No occlusion or significant stenosis. No aneurysm. Other vasculature: Patent dural venous sinuses. IMPRESSION: No large vessel occlusion, aneurysm or dissection. ACT 112: Negative or not required by law. Electronically signed by Christa Barraza 05-14-2024 5:23 PM Neck CTA 05/14/24 16:47 EXAM: CT Angiography Neck With Intravenous Contrast INDICATION: Aphasia. TECHNIQUE: Routine carotid CT angiography protocol was performed with intravenous contrast. NASCET criteria using the distal ICAs for comparison were used for evaluation of stenoses. Sagittal and coronal reformatted images were created and reviewed. This CT exam was performed using one or more of the following dose reduction techniques: automated exposure control, adjustment of the mA and/or kV according to patient size, and/or use of iterative reconstruction technique. MIP reconstructed images were created and reviewed. Contrast approved by the emergency room physician. CONTRAST: 119 cc Optiray 320 was administered intravenously. COMPARISON: None. FINDINGS: VASCULATURE: Right common carotid artery: No abnormality noted. No occlusion or significant stenosis. No dissection. Right internal carotid artery: Mild mixed plaque at the bulb. Extracranial segment is patent with no occlusion or significant stenosis. No dissection. Right external carotid artery: No abnormality noted. No occlusion. Right vertebral artery: No abnormality noted. No occlusion or significant stenosis. No dissection. Left common carotid artery: No abnormality noted. No occlusion or significant stenosis. No dissection. Left internal carotid artery: Moderate mixed plaque in the bulb with approximately 50% proximal stenosis. No occlusion or dissection. Left external carotid artery: No abnormality noted. No occlusion. Left vertebral artery: No abnormality noted. No occlusion or significant stenosis. No dissection. NECK: Bones/joints: Postoperative and degenerative changes present. No acute abnormality. Soft tissues: No abnormality noted. Lung apices: Clear. CAROTID STENOSIS REFERENCE USING NASCET CRITERIA: % ICA stenosis = (1 - narrowest ICA diameter/diameter of distal cervical ICA) x 100. Mild - <50% stenosis. Moderate - 50-69% stenosis. Severe - 70-94% stenosis. Near occlusion - 95-99% stenosis. Occluded - 100% stenosis. IMPRESSION: 1. Moderate plaque and approximate 50% stenosis of the proximal cervical left internal carotid artery. 2. No large vessel occlusion, aneurysm or dissection. ACT 112: Negative or not required by law. Electronically signed by Christa Barraza 05-14-2024 5:28 PM Discharge Plan Visit Data Chief Complaint: Stroke Alert Stated Complaint: Stroke Symptoms ED Provider: Marvin Dumont Discharge Problem: Expressive aphasia, Stroke-like symptoms
[2024-05-14 15:28] LABS: Basophils # (auto) 0.03 K/uL (0.00-0.20); Basophils % (auto) 0.3 %; Hemoglobin 10.4 g/dl (12.0-16.0); Immature Granulocytes # (auto) 0.06 K/uL (0.01-0.20); Immature Granulocytes % (auto) 0.6 %; Lymphocytes # (auto) 1.09 K/uL (1.20-3.40); Lymphocytes % (auto) 10.8 %; Mean Corpuscular Hemoglobin 31.3 pg (25.0-34.0); Mean Corpuscular Hgb Conc 33.5 g/dL (32.0-36.0); Mean Corpuscular Volume 93.4 fL (80.0-100.0); Mean Platelet Volume 11.4 fL (9.4-12.4); Monocytes # (auto) 0.92 K/uL (0.11-0.59); Monocytes % (auto) 9.1 %; Neutrophils # (auto) 7.72 K/uL (1.40-6.50); Neutrophils % (auto) 76.2 %; Platelet Count 204 K/uL (130-400); RDW Coefficient of Variation 15.5 % (11.5-14.5); RDW Standard Deviation 52.7 fL (36.4-46.3); Red Blood Count 3.32 M/uL (4.20-5.40); White Blood Count 10.12 K/ul (4.8-10.8)
[2024-05-14 15:32] LABS: iSTAT Creatinine 2.7 mg/dl (0.6-1.3); iSTAT Hemoglobin 10.9 g/dl (12.0-16.0); iSTAT Ionized Calcium 1.04 mmol/l (1.12-1.32); iSTAT Potassium 3.6 mmol/L (3.3-5.0)
[2024-05-14 15:45] LABS: Albumin Globulin Ratio 1.3 (0.9-2); BUN Creatinine Ratio 19.7 (10-20); Bilirubin,Total 1.1 mg/dl (0.2-1.0); Calcium 9.1 mg/dl (8.6-10.3); Creatinine Clr Calc Pharmacy 21.7 ml/min; Magnesium 1.6 mg/dl (1.7-2.4); Potassium 3.7 mmol/L (3.5-5.1)
[2024-05-14 15:51] LABS: Troponin I High Sensitivity 11.8 pg/ml (0-14)
[2024-05-14 16:06] LABS: Partial Thromboplastin Ratio 1.6; Partial Thromboplastin Time 42 Seconds (21-31); Prothrombin Time 29.1 Seconds (9.0-12.0)
[2024-05-14 16:12] LABS: Appearance Urine Clear (Clear); Bacteria Urine Automated None Seen (None Seen); Bilirubin Urine Negative (Negative); Blood Urine 3+ (Negative); Color Urine Yellow; Epithelial Cell Urine Auto 0-2 /hpf (0-2); Glucose Urine UA 1+ (Negative); Ketones Urine Negative (Negative); Leukocyte Esterase Urine Negative (Negative); Nitrite Urine Negative (Negative); Protein Urine Trace (Negative); RBC Urine Automated >20 /hpf (0-2); Specific Gravity Urine 1.019 (1.000-1.030); Urobilinogen Urine Negative (Negative); WBC Urine Automated 0-5 /hpf (0-5)
--- NOTE | 2024-05-14 16:14 | XRay Report ---
EXAM: Radiograph of the Chest 1 View INDICATION: Neurologic deficits. TECHNIQUE: Frontal view of the chest. COMPARISON: 05/09/2024 FINDINGS: Lungs and pleural spaces: Chronic interstitial scarring present. No consolidation or pulmonary edema. No pleural effusion or pneumothorax. Heart: Cardiomegaly and valve prosthesis unchanged. Mediastinum: Normal contour. Bones/joints: No fracture, erosion or dislocation. Soft tissues: No abnormality noted. No radiopaque foreign body noted. Upper abdomen: No abnormality noted. IMPRESSION: Stable chronic changes. No acute disease. ACT 112: Negative or not required by law. Electronically signed by Christa Barraza 05-14-2024 4:14 PM
--- NOTE | 2024-05-14 16:45 | History & Physical Report ---
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 - lipid panel 03/17/2024 within normal limits; defer repeat lipid panel at this time - continue home atorvastatin 40 Mg daily - restart warfarin 05/15 - hold home BP medications until 05/15 to allow for permissive HTN - Telemetry monitoring - dysphagia screen negative -> advance to heart healthy, low Na diet - Q4H neuro checks - MRI and echo with bubble study ordered - A1C with AM labs - consult neurology (2) Hypokalemia: Plan: K+3.6 on admission -> 40 Meq PO trend bmp (3) Hypomagnesemia: Plan: Mg 1.6 on admission -> start daily po supplement trend Mg (4) H/O mitral valve replacement with mechanical valve: (5) Hx of aortic valve replacement, mechanical: Plan: History of both aortic valve and mitral valve replacement in 1986 Recent echo 01/2024 showed accurate placement of valves on chronic anticoagulation with warfarin (INR goal 2.5-3.5) - supra therapeutic INR, 5.5 on 05/13 - anticoagulation clinic recommended to hold warfarin 05/13 - 05/14 and then resume at 12 Mg/week (2 mg x 6 days) - resume home warfarin tomorrow 05/15 (INR 3.0) - continue home aspirin and isosorbide mononitrate (6) CKD (chronic kidney disease) stage 4, GFR 15-29 ml/min: Plan: history of stage II B/IV CKD follows with nephrology, Dr. Burrows - Cr 1.88 on admission (b/l 1.6-1.8) - b/l eGFR 25-30 ml/min - avoid nephrotoxic agents - IV contrast 05/14 - promote oral hydration - trend BMP (7) Hypertension: Plan: stable on admission - hold home lisinopril and metoprolol until 05/05 to allow for permissive HTN - patient unsure if taking amlodipine although on med rec list, not on recent PCP notes - will defer continuing at this time (8) Chronic anemia: Plan: - Hgb 10.1 on admission, appears baseline - iron panel 04/10/2024 did look concerning for iron deficiency anemia - Could consider starting iron supplement although being managed by PCP (9) Hematuria: Plan: - UA on admission > 20 RBC - patient denies gross hematuria, flank pain, dysuria, difficulty urinating - ER reported that difficulty with cath while trying to obtain urine sample - suspect hematuria secondary to mild trauma with cath, no acute concern at this time Plan Chronic stable diagnoses: Hypothyroidism - continue levothyroxine gout - Continue allopurinol Depression - continue citalopram HLD - continue statin restless leg syndrome - continue pramipexole chronic pain - continue pregabalin VTE ppx: SCDs, resume Warfarin 05/15 Diet: Heart healthy, low sodium diet Code status: DNR/DNI Dispo: PCU/tele Admission and Anticipated Discharge Date Admission Date: 05/14/24 History of Present Illness Chief Complaint: stroke alert Primary Care Provider: Abigail Saldana MD Patient is a 74-year-old female with a past medical history of mechanical aortic valve, mechanical mitral valve, chronic warfarin therapy, prior CVA, hypertension, hyperlipidemia, stage IV CKD, paroxysmal SVT, hypothyroidism, BIRDIE, osteoporosis. She came to the ED through EMS as a stroke alert due to expressive aphasia since 1320. Her family noted that her INR was supratherapeutic yesterday, 5.5; was recommended to hold warfarin 05/13 through 05/14 and resume at 12 mg/week. Patient seen at bedside with her . He stated that she began with sudden expressive aphasia today, she also stated that she has felt fatigued today. They both confirmed that she has had symptoms like this in the past, unclear as if it was due to infection or previous CVAs. Her stated that she has had multiple CVAs in the past, he is unsure of when her last one was, possibly 5 to 6 years ago. Patient denies headache, dizziness, lightheadedness, vision changes, dyspnea, dyspnea on exertion, chest pain, abdominal pain, nausea, vomiting, diarrhea, constipation, dysuria, hematuria, edema, numbness, tingling, weakness, facial droop. Patient confirmed that she did hold her warfarin since yesterday. She took all her other home medications this morning. She does not use CPAP/BiPAP for her BIRDIE. She wishes to be DNR/DNI at this time. Patient's updated at bedside. Allergies Allergy/AdvReac Type Severity Reaction Status Date / Time doxycycline Allergy Unknown CAN'T Verified 05/14/24 18:20 REMEMBER sulfamethoxazole Allergy Unknown CAN'T Verified 05/14/24 18:20 REMEMBER trimethoprim Allergy Unknown CAN'T Verified 05/14/24 18:20 REMEMBER Home Medications Medication Instructions Recorded Confirmed Type allopurinol 100 mg tablet 100 mg PO DAILY #90 tabs 07/19/23 05/14/24 Rx atorvastatin 40 mg tablet 40 mg PO HS 07/19/23 05/14/24 History isosorbide mononitrate 30 mg 30 mg PO QAM #90 tabs 07/19/23 05/14/24 Rx tablet,extended release 24 hr triamcinolone acetonide 0.1 % 1 applic topical BID PRN Skin 07/19/23 05/14/24 History topical cream Irritation aspirin 81 mg chewable tablet 81 mg PO Q OTHER DAY 08/12/23 05/14/24 History metoprolol succinate 25 mg 25 mg PO BID 08/19/23 05/14/24 History tablet,extended release 24 hr levothyroxine 50 mcg tablet 50 mcg PO QAM #90 tabs 01/06/24 05/14/24 Rx calcium 600 mg (as 1 tab PO DAILY #90 tabs 03/10/24 05/14/24 Rx carbonate)-vitamin D3 10 mcg (400 unit) tablet citalopram 20 mg tablet 20 mg PO QAM #90 tabs 03/10/24 05/14/24 Rx pramipexole 0.125 mg tablet 0.125 mg PO QPM #90 tabs 04/21/24 05/14/24 Rx pregabalin 100 mg capsule (Lyrica) 100 mg PO PM #90 caps 04/21/24 05/14/24 Rx folic acid 1 mg tablet 1 mg PO Q OTHER DAY 05/13/24 05/14/24 History warfarin 2 mg tablet See Rx Instructions PO UD 05/13/24 05/14/24 History amlodipine 2.5 mg tablet 0 mg PO QAM 05/14/24 05/14/24 History lisinopril 5 mg tablet 5 mg PO HS 05/14/24 05/14/24 History Past Med/Surg History Problem List (Updated 05/15/24 @ 09:39 by Taurus Mancilla MD) Stroke-like episode Acquired stuttering Hypomagnesemia Hypokalemia Stroke-like symptoms (Acute) Expressive aphasia (Acute) Diarrhea (Acute) Chills (without fever) (Acute) Hematuria Proteinuria Acute kidney injury Osteoporosis Chronic anemia Vitamin D deficiency Warfarin anticoagulation (Acute) CKD (chronic kidney disease) stage 4, GFR 15-29 ml/min Hx of aortic valve replacement, mechanical H/O mitral valve replacement with mechanical valve Effusion of knee joint right (Acute) Ambulatory dysfunction Dizziness Paroxysmal SVT (supraventricular tachycardia) (Chronic) Chronic constipation (Chronic) RLS (restless legs syndrome) (Chronic) Chronic pain (Chronic) Hypertension (Chronic) BIRDIE (obstructive sleep apnea) (Chronic) Dyslipidemia (Chronic) Hypothyroidism (Chronic) Medical History Open fracture of left distal radius (08/19/23) from a fall-saw orthopedics in the ED and was admitted to [facility] per ortho note History of CVA (cerebrovascular accident) History of transfusion of packed RBC 08/2023 1 unit CKD (chronic kidney disease), stage III Surgical History S/P ORIF (open reduction internal fixation) fracture Lt distal radius 08/23/23 Dr. Oscar Jones S/P total abdominal hysterectomy H/O neck surgery History of cholecystectomy H/O oophorectomy S/P repair of paraesophageal hernia History of total right hip replacement S/P lumbar fusion H/O hemorrhoidectomy Family History Father Heart disease Mother Stroke Social History Smoking Status: Never smoker Second Hand Exposure: No; Do You Dip or Chew Tobacco: No; Tobacco Cessation Education Requested by Patient: No Hx Alcohol Use: No Hx Substance Use: No Preferred Language: Albanian Communication Ability: Effective Visual Impairment: No Limitations Hearing Ability: Hard of Hearing Food Court Team Member Required: No Beliefs That Will Affect Care: None marital status: Current Living Situation: Spouse and Family Current Living Situation Comment: lives with and son current occupational status: retired How many Children do You have: 2 Other Information That Helps Us Care for You: No Feels Safe at Home: Yes Safety Concerns: Feels Safe At This Time Childhood Exposure to Second-Hand Smoke: No Diet: regular Diet Comment: regular caffeine: No Dental Care, Regularly: No Physical Activity Frequency: Does not Exercise Seatbelt Use: always Sunscreen Use: No Assistive Devices: Cane and Hearing Aid - Bilateral Review of Systems Review of Systems: see HPI Physical Exam Physical Exam: The patient is awake, well developed and well nourished, normocephalic and atraumatic, in no acute distress. Non-toxic appearing. HEENT- EOMI, mucous membranes moist. Hearing grossly intact. Heart-normal S1 and S2. No rubs or gallops. Lungs-clear bilaterally, no respiratory distress, no accessory muscle use. Abdomen-normal bowel sounds and soft. No ascites noted. Non-tender. Extremities- no clubbing, cyanosis, or edema. Rheumatologic-normal range of motion. Musculoskeletal: no cyanosis or clubbing, extremities motor strength 5/5 Neurologic: CN's II-XI intact bilaterally; not confused Speech / Cognition: + expressive aphasia Motor/Sensory: normal movement and no sensory deficit Coordination: normal [id number] test Results & Data Results & Data Vital Signs (Past 12 Hours) Vital Signs Temp Pulse Pulse Resp BP BP Pulse Ox 05/14/24 15:56 73 31 H 137/66 95 05/14/24 15:10 76 05/14/24 15:02 37.2 C 83 18 157/71 H O2 Del Method 05/14/24 15:56 Room Air 05/14/24 15:10 05/14/24 15:02 Room Air Code Status & VTE Plan Code Status DNR/DNI VTE Prophylaxis Plan VTE Prophylaxis will be ordered: Yes Supervising Physician Co-Signing Physician Notes I personally saw and examined the patient. I independently reviewed the labs, EKG, imaging, problem list, medication list, past medical history and family history. I verified all cole points and agree with Abeba Salgado PA-C with the following exceptions and/or additions: 74 year old female presents to the ER with expressive dysphasia. No vision/hearing change, extremity weakness or loss of sensation O/E HS RRR, no murmurs, Chest CTAB, Abdo SNT, no focal extremity weakness of loss of sensation, CN 2-> 12 intact, normal speech exam A/P Stoke like symptoms - unclear cause, possible TIA although she has some ongoing mild subjective symptoms. Brain MRI pending. Further management depending on results and neurology consultation PG Care Time/CCT Total # of Minutes Spent Total Time Spent with Patient: Total time spent is greater than 50% in coordination of care (as documented) at patient's floor/unit and/or counseling patient: Coding Level of Care Code 00875 INT INP/OBS CARE 3/75MIN Diagnoses Expressive aphasia R47.01 Hypokalemia E87.6 Hypomagnesemia E83.42 H/O mitral valve replacement with mechanical valve Z95.2 Hx of aortic valve replacement, mechanical Z95.2 CKD (chronic kidney disease) stage 4, GFR 15-29 ml/min N18.4 Hypertension I10 Hypertension type: unspecified Chronic anemia D64.9 Hematuria R31.9 (7) Hypertension Hypertension type: unspecified Qualified Code(s): I10 - Essential (primary) hypertension
[2024-05-14] MEDS: OPTIRAY 320 125ml IV ONE (17:10)
--- NOTE | 2024-05-14 17:24 | CT Scan Report ---
EXAM: CT Angiography Head With Intravenous Contrast INDICATION: Aphasia. TECHNIQUE: Axial computed tomographic angiography images of the head with intravenous contrast. Sagittal and coronal reformatted images were created and reviewed. This CT exam was performed using one or more of the following dose reduction techniques: automated exposure control, adjustment of the mA and/or kV according to patient size, and/or use of iterative reconstruction technique. MIP reconstructed images were created and reviewed. CONTRAST: 119ml of Optiray 320 was administered intravenously. COMPARISON: No relevant prior studies available. FINDINGS: Right internal carotid artery: No acute change noted. Intracranial segment is patent with no significant stenosis. No aneurysm. Right anterior cerebral artery: No abnormality noted. No occlusion or significant stenosis. No aneurysm. Right middle cerebral artery: No abnormality noted. No occlusion or significant stenosis. No aneurysm. Right posterior cerebral artery: No abnormality noted. No occlusion or significant stenosis. No aneurysm. Right vertebral artery: No significant abnormality noted. Left internal carotid artery: No acute change noted. Intracranial segment is patent with no significant stenosis. No aneurysm. Left anterior cerebral artery: No abnormality noted. No occlusion or significant stenosis. No aneurysm. Left middle cerebral artery: No abnormality noted. No occlusion or significant stenosis. No aneurysm. Left posterior cerebral artery: No abnormality noted. No occlusion or significant stenosis. No aneurysm. Left vertebral artery: No significant abnormality noted. Basilar artery: No abnormality noted. No occlusion or significant stenosis. No aneurysm. Other vasculature: Patent dural venous sinuses. IMPRESSION: No large vessel occlusion, aneurysm or dissection. ACT 112: Negative or not required by law. Electronically signed by Christa Barraza 05-14-2024 5:23 PM
--- NOTE | 2024-05-14 17:29 | CT Scan Report ---
EXAM: CT Angiography Neck With Intravenous Contrast INDICATION: Aphasia. TECHNIQUE: Routine carotid CT angiography protocol was performed with intravenous contrast. NASCET criteria using the distal ICAs for comparison were used for evaluation of stenoses. Sagittal and coronal reformatted images were created and reviewed. This CT exam was performed using one or more of the following dose reduction techniques: automated exposure control, adjustment of the mA and/or kV according to patient size, and/or use of iterative reconstruction technique. MIP reconstructed images were created and reviewed. Contrast approved by the emergency room physician. CONTRAST: 119 cc Optiray 320 was administered intravenously. COMPARISON: None. FINDINGS: VASCULATURE: Right common carotid artery: No abnormality noted. No occlusion or significant stenosis. No dissection. Right internal carotid artery: Mild mixed plaque at the bulb. Extracranial segment is patent with no occlusion or significant stenosis. No dissection. Right external carotid artery: No abnormality noted. No occlusion. Right vertebral artery: No abnormality noted. No occlusion or significant stenosis. No dissection. Left common carotid artery: No abnormality noted. No occlusion or significant stenosis. No dissection. Left internal carotid artery: Moderate mixed plaque in the bulb with approximately 50% proximal stenosis. No occlusion or dissection. Left external carotid artery: No abnormality noted. No occlusion. Left vertebral artery: No abnormality noted. No occlusion or significant stenosis. No dissection. NECK: Bones/joints: Postoperative and degenerative changes present. No acute abnormality. Soft tissues: No abnormality noted. Lung apices: Clear. CAROTID STENOSIS REFERENCE USING NASCET CRITERIA: % ICA stenosis = (1 - narrowest ICA diameter/diameter of distal cervical ICA) x 100. Mild - <50% stenosis. Moderate - 50-69% stenosis. Severe - 70-94% stenosis. Near occlusion - 95-99% stenosis. Occluded - 100% stenosis. IMPRESSION: 1. Moderate plaque and approximate 50% stenosis of the proximal cervical left internal carotid artery. 2. No large vessel occlusion, aneurysm or dissection. ACT 112: Negative or not required by law. Electronically signed by Christa Barraza 05-14-2024 5:28 PM
[2024-05-14] MEDS: MAGNESIUM OXIDE 400 MG TAB PO SCH (18:25)
[2024-05-14] MEDS: POTASSIUM CHLORIDE CRTAB 20 MEQ TABCR PO STA (18:25)
[2024-05-14] MEDS ORDERED: PHARMACIST DISCHARGE MED REC CONSULT PRN (18:48)
[2024-05-14] MEDS ORDERED: DOCUSATE SODIUM 100 MG CAP PO PRN (18:48)
[2024-05-14] MEDS ORDERED: ACETAMINOPHEN 325 MG TAB PO PRN (18:48)
[2024-05-14] MEDS: PRAMIPEXOLE DIHYDROCHLO 0.25 MG TAB PO SCH (19:44)
[2024-05-14] MEDS: ATORVASTATIN 40 MG TAB PO SCH (20:33)
[2024-05-14] MEDS: PREGABALIN 100 MG CAP PO SCH (20:34)
--- NOTE | 2024-05-14 23:46 | Magnetic Resonance Report ---
Exam(s): MRI HEAD Without Contrast EXAM: MR Head Without Intravenous Contrast CLINICAL HISTORY: Reason for exam: Expressive aphasia, strokelike symptoms. TECHNIQUE: Magnetic resonance images of the head/brain without intravenous contrast in multiple planes. COMPARISON: Head CT 05/14/2024 FINDINGS: Brain: No restricted diffusion. No mass-effect or cerebral edema. Global parenchymal atrophy and its periventricular T2/flair foci consistent with chronic microvascular ischemic changes. Chronic lacunar infarct in the left thalamus. Chronic infarcts within the cerebellum. A few small foci of susceptibility within the right parietal and temporal cortices which could be related to amyloid or remote hemosiderin deposition. No hemorrhage. Ventricles: Unremarkable. No ventriculomegaly. Bones/joints: Unremarkable. No acute fracture. Sinuses: Unremarkable as visualized. No acute sinusitis. Mastoid air cells: Unremarkable as visualized. No mastoid effusion. Orbits: Unremarkable as visualized. IMPRESSION: No acute intracranial abnormality. Electronically signed by: Wiliam Fall MD 05/14/24 23:45 PM
[2024-05-15] MEDS: LEVOTHYROXINE SODIUM 50 MCG TABLET PO SCH (05:56)
--- NOTE | 2024-05-15 06:53 | Hospitalist Progress Note ---
Date of Service May 15, 2024 Assessment & Plan (1) Expressive aphasia: Plan: appears to have resolved - MRI Brain 05/14/24 negative for acute changes; few chronic cerebellar infarcts as well as a chronic lacunar infarct within the left thalamus, and chronic microvascular ischemic disease throughout both cerebral hemispheres - CT head 05/14/24 negative for acute changes, old left thalamic lacunar infarct - Head/Neck CTA 05/14/24 negative for acute changes, moderate plaque and approximately 50% stenosis of proximal cervical left internal carotid artery - echo in 2018 did show [id number] shunt across intra-atrial septum 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 - lipid panel 03/17/2024 within normal limits; defer repeat lipid panel at this time - echo w/ bubble study ordered Neurology recommendation: - continue home atorvastatin 40 Mg daily - restarted warfarin 05/15/24 - speech therapy - aspirin 81mg daily for 3 weeks, then continue q2d - EEG done: not showing epileptiform activity, consider ambulatory EEG monitoring (2) Carotid artery plaque: Plan: as seen on CTA head/neck from 05/14/24 - moderate plaque and ~50% stenosis of prox cervical L ICA - appears stable, can be followed with vascular surgery as an outpatient (3) Hypokalemia: Plan: resolved, 3.6 -> 4.3 - BMP qAM (4) Hypomagnesemia: Plan: 1.6 -> 1.7 after starting supplementation - continue repleting and trending as it is on the lower end of normal - mag level in AM (5) H/O mitral valve replacement with mechanical valve: Plan: INR 2.6 on 05/15/24 - resume warfarin - goal INR: 2.5-3.5 (6) Hx of aortic valve replacement, mechanical: Plan: History of both aortic valve and mitral valve replacement in 1986 Recent echo 01/2024 showed accurate placement of valves on chronic anticoagulation with warfarin (INR goal 2.5-3.5) - supratherapeutic INR, 5.5 on 05/13 - anticoagulation clinic recommended to hold warfarin 05/13 - 05/14 and then resume at 12 Mg/week (2 mg x 6 days) - presently 2.6, resuming warfarin - aspirin and isosorbide mononitrate (7) CKD (chronic kidney disease) stage 4, GFR 15-29 ml/min: Plan: history of stage II B/IV CKD follows with nephrology, Dr. Burrows - Cr 1.89 (baseline 1.6-1.8) - eGFR 27.54 (baseline (25-30 ml/min) - avoid nephrotoxic agents - IV contrast 05/14 - encourage oral hydration and meals - trend BMP (8) Hypertension: Plan: stable on admission - continue home regimen - patient unsure if taking amlodipine although on med rec list, not on recent PCP notes - will defer continuing at this time (9) Chronic anemia: Plan: - Hgb 10.1 on admission -> 10.4, appears baseline - iron panel 04/10/2024 did look concerning for iron deficiency anemia - Could consider starting iron supplement although being managed by PCP (10) Hematuria: Plan: UA on admission > 20 RBC - patient denies gross hematuria, flank pain, dysuria, difficulty urinating - ER reported that difficulty with cath while trying to obtain urine sample - suspect hematuria secondary to mild trauma with cath, no acute concern at this time Plan Chronic stable diagnoses: Hypothyroidism - continue levothyroxine gout - Continue allopurinol Depression - continue citalopram HLD - continue statin restless leg syndrome - continue pramipexole chronic pain - continue pregabalin VTE ppx: SCDs, resume Warfarin 05/15 Diet: Heart healthy, low sodium diet Code status: DNR/DNI Dispo: PCU/tele Admission and Anticipated Discharge Date Admission Date: May 14, 2024 Supervising Physician Co-Signing Physician Notes I personally examined the patient and verified cole points of history and exam, discussed case, and agree with decision making and plan documented by Dr. Cade. On exam, patient with diffuse blepharitis bilaterally in addition to eczematous irritations bilateral external ears. Discussed washing with gentle soap or baby shampoo. Gentle topical application of hydrocortisone avoiding eye area recommended with topical emollient therapy, start triamcinolone for erythema around external ears. EEG performed unrevealing of seizure activity, agree with recommendations of daily ASA, vascular surgery outpatient referral, and consideration of additional cardiac workup by neurology. Overall, patient endorses improvement of her symptoms, she was eating dinner and was quite conversant with the team. Subjective Patient seen and evaluated at bedside, resting comfortably in bed not in apparent distress. Overnight, she endorses sleeping well and denies any particular pain or discomfort. This morning, she states she had eaten breakfast and has gone to the bathroom to urinate without issue, no bowel movement States she is feeling better than she felt when she was in ED as she is not having her previous expressive stroke-like symptoms. Confirms history of prior strokes and mechanical aortic/mitral valves for which she is taking warfarin. Conveys understanding about her imaging showing no acute stroke and that further evaluation by neurology is warranted. Denies fever, body aches, chills, headache, nausea/vomiting, dizziness, vision changes, dysphagia, SOB, chest pain, abdominal pain, pain/swelling in lower extremities, tingling/numbness in lower extremities. Review of Systems Review of Systems: per HPI Physical Exam Physical Exam: Constitutional: A&Ox4 (full name, , place, and month) HEENT: NC/AT, anicteric sclerae, EOM intact with some difficulty isolating from concurrent head movement, PERRL Cardiovascular: RRR, +s1/s2, no m/r/g Respiratory: clear to auscultation b/l, good air movement b/l, no wheeze/rales/rhonchi GI: abdomen soft, +BS, nontender to palpation Neuro: no facial droop, speech intact, no sensory deficits; CN II-XII grossly intact MSK: 5/5 strength b/l UE and LE, calves nontender to palpation b/l Results & Data Results & Data Vital Signs (Past 12 Hours) Vital Signs Temp Pulse Pulse Resp BP Pulse Ox O2 Del Method 05/15/24 03:39 36.9 C 63 15 134/58 L 98 Room Air 05/15/24 00:19 36.5 C 67 18 126/60 97 Room Air 05/15/24 00:00 64 05/14/24 21:54 63 05/14/24 20:59 36.7 C 65 16 142/68 H 97 Room Air 05/14/24 18:56 37.3 C 64 135/59 L 97 Room Air Laboratory Results Abnormal lab results 05/15/24 Range/Units 06:17 RBC 2.96 L (4.20-5.40) M/uL Hgb 9.2 L (12.0-16.0) g/dl Hct 28.0 L (37.0-47.0) % RDW Std Deviation 53.8 H (36.4-46.3) fL RDW Coeff of Gisele 15.7 H (11.5-14.5) % Dewey # (Auto) 0.92 H (0.11-0.59) K/uL PT 25.6 H (9.0-12.0) Seconds INR 2.6 H (0.9-1.1) Chloride 110 H (98-107) mmol/L BUN 32 H (6-23) mg/dl Creatinine 1.89 H (0.6-1.2) mg/dl Resident Activity Tracking Resident Involvement: Resident Care Provided Care Provided: Adult [facility] Medicine (8) Hypertension Hypertension type: unspecified Qualified Code(s): I10 - Essential (primary) hypertension
[2024-05-15 07:17] LABS: Basophils # (auto) 0.02 K/uL (0.00-0.20); Basophils % (auto) 0.2 %; Eosinophils # (auto) 0.36 K/uL (0.00-0.50); Eosinophils % (auto) 4.2 %; Hemoglobin 9.2 g/dl (12.0-16.0); Immature Granulocytes # (auto) 0.03 K/uL (0.01-0.20); Immature Granulocytes % (auto) 0.4 %; Lymphocytes # (auto) 1.21 K/uL (1.20-3.40); Lymphocytes % (auto) 14.2 %; Mean Corpuscular Hemoglobin 31.1 pg (25.0-34.0); Mean Corpuscular Hgb Conc 32.9 g/dL (32.0-36.0); Mean Corpuscular Volume 94.6 fL (80.0-100.0); Mean Platelet Volume 11.5 fL (9.4-12.4); Monocytes # (auto) 0.92 K/uL (0.11-0.59); Monocytes % (auto) 10.8 %; Neutrophils # (auto) 6.01 K/uL (1.40-6.50); Neutrophils % (auto) 70.2 %; Platelet Count 188 K/uL (130-400); RDW Coefficient of Variation 15.7 % (11.5-14.5); RDW Standard Deviation 53.8 fL (36.4-46.3); Red Blood Count 2.96 M/uL (4.20-5.40); White Blood Count 8.55 K/ul (4.8-10.8)
[2024-05-15 07:32] LABS: BUN Creatinine Ratio 16.9 (10-20); Calcium 9.1 mg/dl (8.6-10.3); Creatinine Clr Calc Pharmacy 21.6 ml/min; Magnesium 1.7 mg/dl (1.7-2.4); Potassium 4.4 mmol/L (3.5-5.1)
[2024-05-15 07:36] LABS: Estimated Average Glucose 108 mg/dl; Hemoglobin A1C 5.4 % (4.5-5.6)
[2024-05-15 07:42] LABS: INR 2.6 (0.9-1.1); Prothrombin Time 25.6 Seconds (9.0-12.0)
[2024-05-15] MEDS: CITALOPRAM 20 MG TAB PO SCH (08:27)
[2024-05-15] MEDS: ASPIRIN 81 MG CHEW PO SCH (08:27)
[2024-05-15] MEDS: ISOSORBIDE MONO EXTENDED REL 30 MG TABCR PO SCH (08:27)
[2024-05-15] MEDS: allopurinoL 100 MG TAB PO SCH (08:27)
[2024-05-15] MEDS: METOPROLOL SUCC 25MG EXT REL TAB PO SCH (09:39)
--- NOTE | 2024-05-15 09:41 | Neurology Consultation ---
Date of Consultation May 15, 2024 Assessment & Plan (1) Aphasia: (2) Acquired stuttering: (3) Stroke-like episode: Plan 74-year-old female with a recurrent episode of speech disfluency, stuttering speech, still has symptoms this morning although improving. Brain MRI negative for acute process although she does have a few chronic microhemorrhages, one within the right temporal lobe, the other within the right parietal lobe. MRI also reveals a few chronic cerebellar infarcts as well as a chronic lacunar infarct within the left thalamus, and chronic microvascular ischemic disease throughout both cerebral hemispheres. A TIA is possible. She has been holding her warfarin due to a supratherapeutic pro time. She also has a moderate degree of proximal left ICA plaque. A seizure is not completely excluded, noting her previous similar presentation in 2018, subsequent transfer to [facility] with some concern for possible seizures at that time as well. I have ordered an EEG. Will hold off on starting antiseizure medication at this time. Patient has been taking aspirin 81 mg every other day, would switch to 81 mg/day, for the next 3 weeks, would then transition back to every other day. May continue with warfarin, pro time currently 2.6. Continue with atorvastatin at the current dosage. The moderate degree of proximal left cervical internal carotid artery plaque would not require surgical intervention. However, an outpatient assessment with vascular surgery may be worthwhile. Consider obtaining an additional ambulatory cardiac monitoring. I will advise further pending patient of the above EEG. Could also consider obtaining ambulatory EEG monitoring. Consultation with speech therapy as ordered. History of Present Illness Reason for Consultation: aphasia Requesting Physician: Naomi Attending Physician: Megha Sorensen DO History of Present Illness The patient is a 74-year-old right-handed female who presented to the emergency department yesterday afternoon with a chief complaint of sudden onset change in speech. She was with family at the time of symptom onset but her speech developed a garbled stuttering quality, no difficulty with speech comprehension, she recalls having some associated numbness of the right hand, no weakness of the limbs, headache, vertigo, or acute vision disturbance. Past medical history notable for mechanical aortic and mitral valves, on warfarin, supratherapeutic INR recently, had been holding her warfarin. She had a similar presentation in July 2018 and was transferred to [facility], there was some concern for seizure at that time although she was ultimately diagnosed with a urinary tract infection and metabolic encephalopathy. A CTA of the head and neck dated yesterday was negative for hemorrhage or acute process, there is chronic small vessel ischemic disease and moderate plaque involving the proximal cervical left internal carotid artery. I independently reviewed the follow-up brain MRI, negative for acute infarct. On GRE there is a chronic microhemorrhage within the right temporal lobe and right parietal occipital lobe. There are chronic bilateral lacunar infarcts within the cerebellum and a chronic left thalamic lacunar infarct. There is chronic microvascular ischemic disease within both cerebral hemispheres. This morning, the patient exhibits mild speech disfluency, occasional stuttering speech, no difficulty with speech comprehension, see examination below. She denies any headache, vision disturbance, vertigo, or weakness or sensory loss at this time. Allergies Allergy/AdvReac Type Severity Reaction Status Date / Time doxycycline Allergy Unknown CAN'T Verified 05/14/24 18:20 REMEMBER sulfamethoxazole Allergy Unknown CAN'T Verified 05/14/24 18:20 REMEMBER trimethoprim Allergy Unknown CAN'T Verified 05/14/24 18:20 REMEMBER Home Medications Medication Instructions Recorded Confirmed Type allopurinol 100 mg tablet 100 mg PO DAILY #90 tabs 07/19/23 05/14/24 Rx atorvastatin 40 mg tablet 40 mg PO HS 07/19/23 05/14/24 History isosorbide mononitrate 30 mg 30 mg PO QAM #90 tabs 07/19/23 05/14/24 Rx tablet,extended release 24 hr triamcinolone acetonide 0.1 % 1 applic topical BID PRN Skin 07/19/23 05/14/24 History topical cream Irritation aspirin 81 mg chewable tablet 81 mg PO Q OTHER DAY 08/12/23 05/14/24 History metoprolol succinate 25 mg 25 mg PO BID 08/19/23 05/14/24 History tablet,extended release 24 hr levothyroxine 50 mcg tablet 50 mcg PO QAM #90 tabs 01/06/24 05/14/24 Rx calcium 600 mg (as 1 tab PO DAILY #90 tabs 03/10/24 05/14/24 Rx carbonate)-vitamin D3 10 mcg (400 unit) tablet citalopram 20 mg tablet 20 mg PO QAM #90 tabs 03/10/24 05/14/24 Rx pramipexole 0.125 mg tablet 0.125 mg PO QPM #90 tabs 04/21/24 05/14/24 Rx pregabalin 100 mg capsule (Lyrica) 100 mg PO PM #90 caps 04/21/24 05/14/24 Rx folic acid 1 mg tablet 1 mg PO Q OTHER DAY 05/13/24 05/14/24 History warfarin 2 mg tablet See Rx Instructions PO UD 05/13/24 05/14/24 History amlodipine 2.5 mg tablet 0 mg PO QAM 05/14/24 05/14/24 History lisinopril 5 mg tablet 5 mg PO HS 05/14/24 05/14/24 History Patient History Medical History Open fracture of left distal radius (08/19/23) from a fall-saw orthopedics in the ED and was admitted to [facility] per ortho note History of CVA (cerebrovascular accident) History of transfusion of packed RBC 08/2023 1 unit CKD (chronic kidney disease), stage III Surgical History S/P ORIF (open reduction internal fixation) fracture Lt distal radius 08/23/23 Dr. Oscar Jones S/P total abdominal hysterectomy H/O neck surgery History of cholecystectomy H/O oophorectomy S/P repair of paraesophageal hernia History of total right hip replacement S/P lumbar fusion H/O hemorrhoidectomy Family History Father Heart disease Mother Stroke Social History Smoking Status: Never smoker Second Hand Exposure: No; Do You Dip or Chew Tobacco: No; Tobacco Cessation Education Requested by Patient: No Hx Alcohol Use: No Hx Substance Use: No Preferred Language: Martiniquais Communication Ability: Effective Visual Impairment: No Limitations Hearing Ability: Hard of Hearing Engineering Director Required: No Beliefs That Will Affect Care: None marital status: Current Living Situation: Spouse and Family Current Living Situation Comment: lives with and son current occupational status: retired How many Children do You have: 2 Other Information That Helps Us Care for You: No Feels Safe at Home: Yes Safety Concerns: Feels Safe At This Time Childhood Exposure to Second-Hand Smoke: No Diet: regular Diet Comment: regular caffeine: No Dental Care, Regularly: No Physical Activity Frequency: Does not Exercise Seatbelt Use: always Sunscreen Use: No Assistive Devices: Cane and Hearing Aid - Bilateral Review of Systems Constitutional: no fever and no chills Eyes: no blind spots and no diplopia Ear, Nose, Mouth, Throat: + hearing loss Respiratory: no cough and no dyspnea Cardiovascular: no chest pain and no palpitations Gastrointestinal: no nausea and no vomiting Genitourinary: no dysuria Musculoskeletal: no myalgia and no muscle weakness Integumentary: no rash and no lesions Neurologic: as per Subjective / HPI Psychiatric: no depression and no anxiety Hematologic / Lymphatic: no easy bleeding and no easy bruising Exam (Neuro) Constitutional: well developed; no acute distress Eyes: normal visual lino by confrontation, PERRL and EOM intact bilaterally; no nystagmus Neurologic: Oriented to:: Person, Place and Time Cortical Function: Motor Apraxia (Mild) Memory: Short Term Intact and Remote Intact Attention: Span Intact and Concentration Intact Speech Fluency: Dysfluency and Stuttering; negative Dysarthria Speech Aphasia: Aphasia (Mild difficulty with repetition and expressive speech) Fund of Knowledge: Current Events, Past History and Vocabulary Cranial Nerves: Normal II, III, IV, , V, VII, IX, X, XI and XII; Abnorm VIII Motor Strength: Normal Lower Extremities and Normal Upper Extremities Motor Tone: Normal Lower Extremities and Normal Upper Extremities Muscle Bulk/Involuntary Movements: No Involuntary Movements; negative Muscle Atrophy Sensation: Light Touch Intact, Pain/Temperature Intact and Proprioception Intact Coordination: Normal; negative Dysdiadochokinesia, Finger-Nose Abnormal or Heel-Palencia Abnormal Deep Tendon Reflexes: Rt Triceps: 2+, Lt Triceps: 2+, Rt Biceps: 2+, Lt Biceps: 2+, Rt Brachioradialis: 2+, Lt Brachioradialis: 2+, Rt Patellar: 2+, Lt Patellar: 2+, Rt Ankle: 1+ and Lt Ankle: 1+ Special Tests: negative Babinski Present Results & Data Vital Signs (Past 12 Hours) Vital Signs Temp Pulse Pulse Resp BP Pulse Ox O2 Del Method 05/15/24 07:50 36.8 C 65 18 130/55 L 95 Room Air 05/15/24 03:39 36.9 C 63 15 134/58 L 98 Room Air 05/15/24 00:19 36.5 C 67 18 126/60 97 Room Air 05/15/24 00:00 64 05/14/24 21:54 63 Laboratory Results WBC 8.55, hemoglobin 9.2, hematocrit 28.0, MCV 94.6, platelet count 188, INR 2.6, sodium 144, potassium 4.4, BUN 32, creatinine 1.89, glucose 95, hemoglobin A1c 5.4, calcium 9.1, magnesium 1.7, AST 17, ALT 7, high-sensitivity troponin 11.8, lipid panel from this past March reviewed, triglycerides 143, cholesterol 148, LDL 79, VLDL 29, HDL 40 Diagnostic Findings Electrocardiogram reveals a normal sinus rhythm. An echocardiogram completed February 10, 2024 revealed normal left ventricular systolic function, no regional wall motion abnormalities, mild concentric LVH, EF 60 to 65%, prosthetic aortic and mitral valves, normal. Coding Level of Care Code 09189 INT INP/OBS CARE 3/75MIN Diagnoses Aphasia R47.01 Acquired stuttering F98.5 Stroke-like episode R29.90 Time Spent (min) 90 Comment Total time includes patient contact, chart review, counseling, note preparation
--- NOTE | 2024-05-15 10:44 | Electroencephalogram ---
EEG Procedure Note Date of Service May 15, 2024 Start / End Times Start Time: 10:17 AM End Time: 10:37 AM Referring Physician Charo History Recurrent episode of speech, aphasia, evaluate for seizures Home Medication List Medication Instructions Recorded Confirmed Type allopurinol 100 mg tablet 100 mg PO DAILY #90 tabs 07/19/23 05/14/24 Rx atorvastatin 40 mg tablet 40 mg PO HS 07/19/23 05/14/24 History isosorbide mononitrate 30 mg 30 mg PO QAM #90 tabs 07/19/23 05/14/24 Rx tablet,extended release 24 hr triamcinolone acetonide 0.1 % 1 applic topical BID PRN Skin 07/19/23 05/14/24 History topical cream Irritation aspirin 81 mg chewable tablet 81 mg PO Q OTHER DAY 08/12/23 05/14/24 History metoprolol succinate 25 mg 25 mg PO BID 08/19/23 05/14/24 History tablet,extended release 24 hr levothyroxine 50 mcg tablet 50 mcg PO QAM #90 tabs 01/06/24 05/14/24 Rx calcium 600 mg (as 1 tab PO DAILY #90 tabs 03/10/24 05/14/24 Rx carbonate)-vitamin D3 10 mcg (400 unit) tablet citalopram 20 mg tablet 20 mg PO QAM #90 tabs 03/10/24 05/14/24 Rx pramipexole 0.125 mg tablet 0.125 mg PO QPM #90 tabs 04/21/24 05/14/24 Rx pregabalin 100 mg capsule (Lyrica) 100 mg PO PM #90 caps 04/21/24 05/14/24 Rx folic acid 1 mg tablet 1 mg PO Q OTHER DAY 05/13/24 05/14/24 History warfarin 2 mg tablet See Rx Instructions PO UD 05/13/24 05/14/24 History amlodipine 2.5 mg tablet 0 mg PO QAM 05/14/24 05/14/24 History lisinopril 5 mg tablet 5 mg PO HS 05/14/24 05/14/24 History Inpatient Medication List Allopurinol (Allopurinol 100 Mg Tab) 100 mg PO DAILY [facility] Stop: 06/14/24 08:59 Last Admin: 05/15/24 08:27 Dose: 100 mg Documented By: Aspirin (Aspirin 81 Mg Chew) 81 mg PO Q2D [facility] Stop: 06/14/24 08:59 Last Admin: 05/15/24 08:27 Dose: 81 mg Documented By: Atorvastatin Calcium (Atorvastatin 40 Mg Tab) 40 mg PO HS [facility] Stop: 06/13/24 20:59 Last Admin: 05/14/24 20:33 Dose: 40 mg Documented By: CF Citalopram Hydrobromide (Citalopram 20 Mg Tab) 20 mg PO QAM [facility] Stop: 06/14/24 08:59 Last Admin: 05/15/24 08:27 Dose: 20 mg Documented By: Isosorbide Mononitrate (Isosorbide Johnson Extended Rel 30 Mg Tabcr) 30 mg PO QAM [facility] Stop: 06/14/24 08:59 Last Admin: 05/15/24 08:27 Dose: 30 mg Documented By: Levothyroxine Sodium (Levothyroxine Sodium 50 Mcg Tablet) 50 mcg PO DAILYBB [facility] Stop: 06/14/24 06:29 Last Admin: 05/15/24 05:56 Dose: 50 mcg Documented By: CF Magnesium Oxide (Magnesium Oxide 400 Mg Tab) 400 mg PO QAM [facility] Stop: 06/13/24 18:14 Last Admin: 05/15/24 08:29 Dose: 400 mg Documented By: Admin: 05/14/24 18:25 Dose: 400 mg Documented By: NRB Metoprolol Succinate (Metoprolol Succ 25mg Ext Rel Tab) 25 mg PO BID [facility] Stop: 06/14/24 08:59 Last Admin: 05/15/24 09:39 Dose: 25 mg Documented By: Pramipexole Dihydrochloride (Pramipexole Dihydrochlo 0.25 Mg Tab) 0.125 mg PO DAILY@1800 [facility] Stop: 06/13/24 19:14 Last Admin: 05/14/24 19:44 Dose: 0.125 mg Documented By: CF Pregabalin (Pregabalin 100 Mg Cap) 100 mg PO PM [facility] Stop: 06/13/24 20:59 Last Admin: 05/14/24 20:34 Dose: 100 mg Documented By: CF Discontinued Medications Ioversol (Optiray 320 125ml) 119 ml IV ONCE ONE Stop: 05/14/24 17:07 Last Admin: 05/14/24 17:10 Dose: 119 ml Documented By: PLW Potassium Chloride (Potassium Chloride Crtab 20 Meq Tabcr) 40 meq PO NOW STA Stop: 05/14/24 18:05 Last Admin: 05/14/24 18:25 Dose: 40 meq Documented By: NRB Description This is a 21 electrode EEG with a single channel dedicated to limited EKG. The electrodes were placed in accordance with the International 10-20 system. There is a posterior dominant rhythm of 9 to 10 Hz which is symmetrically distributed and attenuates with eye opening. There is a normal anterior to posterior organization. Photic stimulation is unremarkable. Hyperventilation is not performed. There is s mild degree of generalized theta activity in the latter part of the study. There is no focal slowing. There are no epileptiform abnormalities. Interpretation Normal-appearing awake/drowsy EEG [facility] EEG Procedure Codes Indication for Procedure (1) Stroke-like episode: (2) Acquired stuttering: (3) Seizure-like activity: Neurology Neurology: 64312 EEG include record awake & drowsy
[2024-05-15] MEDS: WARFARIN SOD 2 MG TAB PO SCH (15:46)
[2024-05-15] MEDS: lisinopril 5 MG TAB PO SCH (20:15)
--- NOTE | 2024-05-16 00:20 | XCELERA ---
[id number]
[2024-05-16 06:13] LABS: Hematocrit (blood only) 28.6 % (37.0-47.0); Hemoglobin 9.4 g/dl (12.0-16.0); Mean Corpuscular Hemoglobin 30.9 pg (25.0-34.0); Mean Corpuscular Hgb Conc 32.9 g/dL (32.0-36.0); Mean Corpuscular Volume 94.1 fL (80.0-100.0); Mean Platelet Volume 11.4 fL (9.4-12.4); Platelet Count 193 K/uL (130-400); RDW Coefficient of Variation 15.9 % (11.5-14.5); RDW Standard Deviation 54.1 fL (36.4-46.3); Red Blood Count 3.04 M/uL (4.20-5.40)
[2024-05-16 06:23] LABS: BUN Creatinine Ratio 17.3 (10-20); Creatinine Clr Calc Pharmacy 18.1 ml/min; Magnesium 1.7 mg/dl (1.7-2.4); Potassium 4.4 mmol/L (3.5-5.1)
--- NOTE | 2024-05-16 07:26 | Electrocardiogram Report ---
Test Reason : Blood Pressure : */* mmHG Vent. Rate : 76 BPM Atrial Rate : 76 BPM P-R Int : 160 ms QRS Dur : 108 ms QT Int : 392 ms P-R-T Axes : 66 -12 157 degrees QTcB Int : 441 ms Normal sinus rhythm Left ventricular hypertrophy with repolarization abnormality ( R in aVL , [place] product ) Anterior Marked T wave abnormality, consider anterior ischemia Abnormal ECG When compared with ECG of 20-Aug-2023 11:06, Questionable change in QRS axis T wave inversion more evident in Anterior leads Confirmed by Eber Benites ([id number]) on 05/16/2024 7:25:40 AM Referred By: REFERRED SELF Confirmed By: Eber Benites
--- NOTE | 2024-05-16 07:38 | Hospitalist Progress Note ---
Date of Service May 16, 2024 Assessment & Plan (1) Expressive aphasia: Plan: appears to have resolved - MRI Brain 05/14/24 negative for acute changes; few chronic cerebellar infarcts as well as a chronic lacunar infarct within the left thalamus, and chronic microvascular ischemic disease throughout both cerebral hemispheres - CT head 05/14/24 negative for acute changes, old left thalamic lacunar infarct - Head/Neck CTA 05/14/24 negative for acute changes, moderate plaque and approximately 50% stenosis of proximal cervical left internal carotid artery - echo in 2018 did show [id number] shunt across 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 Mancilla comfortable with pt going home and following up with vascular surgery regarding assessment #2 below (2) Carotid artery plaque: Plan: as seen on CTA head/neck from 05/14/24 - moderate plaque and ~50% stenosis of prox cervical L ICA - appears stable, can be followed with vascular surgery as an outpatient (3) H/O mitral valve replacement with mechanical valve: Plan: History of both aortic valve and mitral valve replacement in 1986 INR 2.1 on 05/16/24 - resumed warfarin on 05/15/24 - goal INR: 2.5-3.5 Given 1mg in addition to 2mg dose of warfarin for today as she is sub-goal INR - PT/INR in AM labs (4) Hx of aortic valve replacement, mechanical: Plan: History of both aortic valve and mitral valve replacement in 1986 INR 2.1 on 05/16/24 - resumed warfarin on 05/15/24 - goal INR: 2.5-3.5 Given 1mg in addition to 2mg dose of warfarin for today as she is sub-goal INR - PT/INR in AM labs (5) Acute kidney injury: Plan: JAMES on CKD stage IV - Creatinine 1.89 -> 2.25 in last 24hrs - likely secondary to IV contrast dye - encourage PO fluids and meals - has nephro followup on 05/21/[address] Burrows (6) CKD (chronic kidney disease) stage 4, GFR 15-29 ml/min: Plan: history of stage IV CKD follows with nephrology, Dr. Burrows - Cr 2.25 today (baseline 1.6-1.8), likely increased from day prior due to contrast for imaging - eGFR 27.54 -> 22.34 (baseline 25-30 ml/min) - encourage oral hydration and meals - trend BMP (7) Hypokalemia: Plan: resolved, 3.6 -> 4.4 - BMP qAM (8) Hypomagnesemia: Plan: 1.6 -> 1.7 after starting supplementation - continue repleting and trending as it is on the lower end of normal - mag level in AM (9) Hypertension: Plan: stable on admission - continue home regimen - patient unsure if taking amlodipine although on med rec list, not on recent PCP notes - will defer continuing at this time (10) Chronic anemia: Plan: - Hgb 9.2 -> 9.4, appears stable - iron panel 04/10/2024 did look concerning for iron deficiency anemia - Could consider starting iron supplement although being managed by PCP - CBC in AM labs (11) Hematuria: Plan: UA on admission > 20 RBC - patient denies gross hematuria, flank pain, dysuria, difficulty urinating - ER reported that difficulty with cath while trying to obtain urine sample - suspect hematuria secondary to mild trauma with cath, no acute concern at this time Plan Chronic stable diagnoses: Hypothyroidism - continue levothyroxine gout - Continue allopurinol Depression - continue citalopram HLD - continue statin restless leg syndrome - continue pramipexole chronic pain - continue pregabalin VTE ppx: SCDs, resume Warfarin 05/15 Diet: Heart healthy, low sodium diet Code status: DNR/DNI Dispo: PCU/tele Admission and Anticipated Discharge Date Admission Date: May 15, 2024 Supervising Physician Co-Signing Physician Notes I personally examined the patient and verified cole points of history and exam, discussed case, and agree with decision making and plan documented by Dr. Cade. Evaluated patient with daughter and granddaughter at bedside today. Patient appears comfortable, lungs clear b/l to auscultation, regular rate and rhythm, no acute distress. Patient, in addition to her family, feel that her speech is back to baseline thankfully. We reviewed the diagnostics obtained in the hospital and recommendations to follow-up with neurology outpatient. Reviewed importance of medication adherence, blood pressure control, and follow-up. Patient reports having 3 men living with her at home that can help support her on a day-to-day basis. Subjective Patient seen and evaluated at bedside, resting comfortably in bed in no apparent distress. Overnight, she endorses sleeping well and denies any particular pain or discomfort. This morning, she states she had eaten breakfast and has gone to the bathroom to urinate without issue, no bowel movement States she is continuing to feel better than she felt when she was in ED as she is not having her previous expressive stroke-like symptoms. Was seen again today by Dr. Mancilla from neurology, confirms that she is clinically stable and may be discharged. PT eval seconds that she can be discharged without home health services. Lives with her who is in good physical health in a trailer with only a couple of stairs, pt has a walker and a cane to get around. Continues to deny fever, body aches, chills, headache, nausea/vomiting, dizziness, vision changes, dysphagia, SOB, chest pain, abdominal pain, pain/swelling in lower extremities, tingling/numbness in lower extremities. Review of Systems Review of Systems: per HPI Physical Exam Physical Exam: Constitutional: A&Ox4 (full name, , place, and month) HEENT: NC/AT, anicteric sclerae, EOM intact with some difficulty isolating from concurrent head movement, PERRL Cardiovascular: RRR, +s1/s2, no m/r/g Respiratory: clear to auscultation b/l, good air movement b/l, no wheeze/rales/rhonchi GI: abdomen soft, +BS, nontender to palpation Neuro: no facial droop, speech intact, no sensory deficits; CN II-XII grossly intact MSK: 5/5 strength b/l UE and LE, calves nontender to palpation b/l Results & Data Results & Data Vital Signs (Past 12 Hours) Vital Signs Temp Pulse Pulse Resp BP Pulse Ox O2 Del Method 05/16/24 07:17 59 L 05/16/24 02:59 36.8 C 63 18 117/54 L 93 Room Air 05/15/24 23:55 Room Air 05/15/24 23:00 65 05/15/24 22:58 37.3 C 64 18 120/59 L 94 Room Air Laboratory Results Abnormal lab results 05/16/24 Range/Units 05:43 RBC 3.04 L (4.20-5.40) M/uL Hgb 9.4 L (12.0-16.0) g/dl Hct 28.6 L (37.0-47.0) % RDW Std Deviation 54.1 H (36.4-46.3) fL RDW Coeff of Gisele 15.9 H (11.5-14.5) % PT 20.9 H (9.0-12.0) Seconds INR 2.1 H (0.9-1.1) BUN 39 H (6-23) mg/dl Creatinine 2.25 H D (0.6-1.2) mg/dl Resident Activity Tracking Resident Involvement: Resident Care Provided Care Provided: Adult Hospital Medicine (9) Hypertension Hypertension type: unspecified Qualified Code(s): I10 - Essential (primary) hypertension
[2024-05-16 08:21] LABS: INR 2.1 (0.9-1.1); Prothrombin Time 20.9 Seconds (9.0-12.0)
[2024-05-16] MEDS: ASPIRIN 81 MG ECTAB PO SCH (08:42)
[2024-05-16] MEDS: HYDROCORTISONE 1% CRM 30 GM TUBE EXT PRN (09:53)
[2024-05-16] MEDS: TRIAMCINOLONE ACET 0.1% CR 80 GM TUBE EXT PRN (09:53)
[2024-05-16 11:48] VITALS: BP 115/57; RESP 19; TEMP 97.9; O2SAT 94
--- NOTE | 2024-05-16 12:23 | Neurology Progress Note ---
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 Her stuttering has significantly improved. No acute infarct on MRI although does have several chronic infarcts, notably within the left thalamus and both cerebellar hemispheres. She could have a mild chronic thalamic aphasia. However, the acute escalation of her symptoms prior to admission was worrisome for acute stroke, TIA, or possibly seizure activity. Her recent EEG was normal. She does have an approximate 50% stenosis of the proximal cervical left internal carotid artery. A TIA related to carotid embolism to the left MCA territory may not be completely excluded. May continue with aspirin 81 mg/day, warfarin, and atorvastatin as ordered. (She had been on aspirin every other day prior to her admission.) Outpatient assessment with vascular surgery regarding the left carotid stenosis. Patient also has a few chronic microhemorrhages within the right cerebral hemisphere, not likely clinically significant. If patient were to have any further similar episodes going forward, would consider obtaining ambulatory EEG monitoring. Patient may follow-up with myself or an JUAN MANUEL in neurology clinic in 2 to 3 weeks after discharge. Admission and Anticipated Discharge Date Admission Date: May 15, 2024 Subjective Follow-up regarding strokelike episode Patient evaluated with spouse at bedside, her speech fluency continues to improve although she still has some hesitancy and difficulty with repetition and prepositional speech. No weakness of the facial musculature or limbs. No headache or dizziness. EEG completed yesterday was normal. Review of Systems Eyes: no blind spots and no diplopia Gastrointestinal: no dysphagia Neurologic: + abnormal speech; no localized weakness , no loss of sensation, no abnormal movements and no headache(s) Results & Data Vital Signs (Past 12 Hours) Vital Signs Temp Pulse Pulse Resp BP Pulse Ox O2 Del Method 05/16/24 11:45 36.6 C 62 19 115/57 L 94 Room Air 05/16/24 08:10 36.7 C 64 16 103/57 L 95 Room Air 05/16/24 07:17 59 L 05/16/24 02:59 36.8 C 63 18 117/54 L 93 Room Air Exam (Neuro) Neurologic: Oriented to:: Person, Place and Time Memory: Short Term Intact and Remote Intact Attention: Span Intact and Concentration Intact Speech Fluency: Dysfluency Speech Aphasia: Aphasia (Mild difficulty repetition and prepositional speech) Fund of Knowledge: Current Events, Past History and Vocabulary Cranial Nerves: Normal II, III, IV, , V, VII, VIII, IX, X, XI and XII Motor Strength: Normal Lower Extremities and Normal Upper Extremities; negative Pronator Drift Coordination: negative Finger-Nose Abnormal PG Care Time/CCT Total # of Minutes Spent Total Time Spent with Patient: Total time spent is greater than 50% in coordination of care (as documented) at patient's floor/unit and/or counseling patient: Coding Level of Care Code 57668 SUB INP/OBS CARE 2/35MIN Diagnoses Expressive aphasia R47.01 Stroke-like episode R29.90 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
[2024-05-16] MEDS: WARFARIN SOD 1 MG TAB PO SCH (16:21)
[2024-05-16] MEDS ORDERED: STROKE PATIENT DISCHARGE STA (16:27)
--- NOTE | 2024-05-16 16:33 | Discharge Summary ---
Date of Service May 16, 2024 Admission HPI Per Admitting Provider Patient is a 74-year-old female with a past medical history of mechanical aortic valve, mechanical mitral valve, chronic warfarin therapy, prior CVA, hypertension, hyperlipidemia, stage IV CKD, paroxysmal SVT, hypothyroidism, BIRDIE, osteoporosis. She came to the ED through EMS as a stroke alert due to expressive aphasia since 1320. Her family noted that her INR was supratherapeutic yesterday, 5.5; was recommended to hold warfarin 05/13 through 05/14 and resume at 12 mg/week. Patient seen at bedside with her . He stated that she began with sudden expressive aphasia today, she also stated that she has felt fatigued today. They both confirmed that she has had symptoms like this in the past, unclear as if it was due to infection or previous CVAs. Her stated that she has had multiple CVAs in the past, he is unsure of when her last one was, possibly 5 to 6 years ago. Patient denies headache, dizziness, lightheadedness, vision changes, dyspnea, dyspnea on exertion, chest pain, abdominal pain, nausea, vomiting, diarrhea, constipation, dysuria, hematuria, edema, numbness, tingling, weakness, facial droop. Patient confirmed that she did hold her warfarin since yesterday. She took all her other home medications this morning. She does not use CPAP/BiPAP for her BIRDIE. She wishes to be DNR/DNI at this time. Patient's updated at bedside. Admission Exam Per Admitting Provider The patient is awake, well developed and well nourished, normocephalic and atraumatic, in no acute distress. Non-toxic appearing. HEENT- EOMI, mucous membranes moist. Hearing grossly intact. Heart-normal S1 and S2. No rubs or gallops. Lungs-clear bilaterally, no respiratory distress, no accessory muscle use. Abdomen-normal bowel sounds and soft. No ascites noted. Non-tender. Extremities- no clubbing, cyanosis, or edema. Rheumatologic-normal range of motion. Principal Diagnosis expressive aphasia Discharge Exam Constitutional: A&Ox4 (full name, , place, and month) HEENT: NC/AT, anicteric sclerae, EOM intact with some difficulty isolating from concurrent head movement, PERRL Cardiovascular: RRR, +s1/s2, no m/r/g Respiratory: clear to auscultation b/l, good air movement b/l, no wheeze/rales/rhonchi GI: abdomen soft, +BS, nontender to palpation Neuro: no facial droop, speech intact, no sensory deficits; CN II-XII grossly intact MSK: 5/5 strength b/l UE and LE, calves nontender to palpation b/l Discharge Data Allergies Allergy/AdvReac Type Severity Reaction Status Date / Time doxycycline Allergy Unknown CAN'T Verified 05/14/24 18:20 REMEMBER sulfamethoxazole Allergy Unknown CAN'T Verified 05/14/24 18:20 REMEMBER trimethoprim Allergy Unknown CAN'T Verified 05/14/24 18:20 REMEMBER Consultations 05/14/24 16:41 ED Decision to Admit Stat 05/14/24 18:48 Consult Neurology Routine Ordered Studies 05/14/24 14:53 CT head/brain wo con Stat 05/14/24 16:47 CTA head w con [CT angio head w con] Stat CTA neck with con [CT angio neck with con] Stat 05/14/24 17:50 MRI Brain [MR brain wo con] Urgent Hospital Course (1) Expressive aphasia: appears to have resolved - MRI Brain 05/14/24 negative for acute changes; few chronic cerebellar infarcts as well as a chronic lacunar infarct within the left thalamus, and chronic microvascular ischemic disease throughout both cerebral hemispheres - CT head 05/14/24 negative for acute changes, old left thalamic lacunar infarct - Head/Neck CTA 05/14/24 negative for acute changes, moderate plaque and approximately 50% stenosis of proximal cervical left internal carotid artery - echo in 2018 did show [id number] shunt across 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 Mancilla comfortable with pt going home and following up with vascular surgery regarding assessment #2 below (2) Carotid artery plaque: as seen on CTA head/neck from 05/14/24 - moderate plaque and ~50% stenosis of prox cervical L ICA - appears stable, can be followed with vascular surgery as an outpatient (3) H/O mitral valve replacement with mechanical valve: History of both aortic valve and mitral valve replacement in 1986 INR 2.1 on 05/16/24 - resumed warfarin on 05/15/24 - goal INR: 2.5-3.5 Given 1mg in addition to 2mg dose of warfarin for today as she is sub-goal INR - PT/INR in AM labs (4) Hx of aortic valve replacement, mechanical: History of both aortic valve and mitral valve replacement in 1986 INR 2.1 on 05/16/24 - resumed warfarin on 05/15/24 - goal INR: 2.5-3.5 Given 1mg in addition to 2mg dose of warfarin for today as she is sub-goal INR - PT/INR in AM labs (5) Acute kidney injury: JAMES on CKD stage IV - Creatinine 1.89 -> 2.25 in last 24hrs - likely secondary to IV contrast dye - encourage PO fluids and meals - has nephro followup on 05/21/[address] Burrows (6) CKD (chronic kidney disease) stage 4, GFR 15-29 ml/min: history of stage IV CKD follows with nephrology, Dr. Burrows - Cr 2.25 today (baseline 1.6-1.8), likely increased from day prior due to contrast for imaging - eGFR 27.54 -> 22.34 (baseline 25-30 ml/min) - encourage oral hydration and meals - trend BMP (7) Hypokalemia: resolved, 3.6 -> 4.4 - BMP qAM (8) Hypomagnesemia: 1.6 -> 1.7 after starting supplementation - continue repleting and trending as it is on the lower end of normal - mag level in AM (9) Hypertension: stable on admission - continue home regimen - patient unsure if taking amlodipine although on med rec list, not on recent PCP notes - will defer continuing at this time (10) Chronic anemia: - Hgb 9.2 -> 9.4, appears stable - iron panel 04/10/2024 did look concerning for iron deficiency anemia - Could consider starting iron supplement although being managed by PCP - CBC in AM labs (11) Hematuria: UA on admission > 20 RBC - patient denies gross hematuria, flank pain, dysuria, difficulty urinating - ER reported that difficulty with cath while trying to obtain urine sample - suspect hematuria secondary to mild trauma with cath, no acute concern at this time Plan Chronic stable diagnoses: Hypothyroidism - continue levothyroxine gout - Continue allopurinol Depression - continue citalopram HLD - continue statin restless leg syndrome - continue pramipexole chronic pain - continue pregabalin VTE ppx: SCDs, resume Warfarin 05/15 Diet: Heart healthy, low sodium diet Code status: DNR/DNI Dispo: PCU/tele Total Time Total Time Spent Total Time Spent (In Minutes): 45 Discharge Plan Discharge Items Patient Disposition: Home - Self-Care Reason For Visit: EXPRESSIVE APHASIA, STROKE WORKUP Discharge Diagnosis: expressive aphasia Activity: Per Instructions section Non-emergency contact: Primary Care Provider and Front Desk Manager Call non-emergency contact if: your symptoms worsen and your pain is not controlled Follow-up/Referrals: Abigail Saldana MD [Primary Care Provider] - Diet: Heart Healthy Addtl Attending Provider Instructions: You were seen and evaluated for an expressive aphasia, which includes stuttering and repetition of speech, at [facility] ED on 05/14/24. The acute onset of your symptoms prior to admission was worrisome for acute stroke, TIA, or possibly seizure activity. Today 05/16/24 you have a much improved mild aphasia characterized by some difficulty with repetition and prepositional speech. Your stuttering has significantly improved. No acute infarct on MRI although does have several chronic infarcts, notably within the left thalamus and both cerebellar hemispheres. You could have a mild chronic thalamic aphasia. However, Her recent EEG was normal. You do have an approximate 50% stenosis of the proximal cervical left internal carotid artery. A TIA related to carotid embolism to the left MCA territory may not be completely excluded. You were off your warfarin for a day, but have been recontinued on it with an additional 1mg given on 05/16/24 due to sub-goal INR. May continue with aspirin 81 mg/day, warfarin, and atorvastatin as ordered. (She had been on aspirin every other day prior to her admission.) Outpatient assessment with vascular surgery regarding the left carotid stenosis. If you have any further similar episodes going forward consider followup with neurology to obtain ambulatory EEG monitoring. You may follow-up with Dr. Mancilla (neurologist who saw you here) or an JUAN MANUEL in neurology clinic in 2-3 weeks after discharge. For your rash, use HYDROCORTISONE small amount for the rash around your eyes up to twice a day. For the rash on/in your ears, use TRIAMCINOLONE small amount on rash up to twice day. Do not use TRIAMCINOLONE for the rash around your eyes as it is more potent. You have a followup appointment with your grader operator (kidney doctor) Dr. Burrows on 05/21/24. Please do follow up with your PCP soon as well. Pending Studies at Discharge: No Stand-Alone Forms: My [facility] [employer], Smoking Cessation, Medications to Prevent Stroke Medications and DC Order Prescriptions: New hydrocortisone 1 % Ointment 1 applic EXT BID 14 Days Qty: 30 0RF Rx Instructions: apply small amount on red/dry/flaky area around eyes - DO NOT GET OINTMENT IN YOUR EYES - if this happens, wash with water for up to 5min. If eyes continue to be red/irritated, consider going to urgent care / ER or calling your PCP. triamcinolone acetonide 0.1 % Cream 1 applic EXT BID 14 Days Qty: 30 0RF Rx Instructions: apply small amount to rash on ears and at entrance of ear canals DO NOT USE THIS OINTMENT FOR THE RASH AROUND YOUR EYES IT IS MORE POTENT AND MORE LIKELY TO IRRITATE SENSITIVE EYES - use the HYDROCORTISONE for the rash around your eyes Continued aspirin 81 mg tablet,chewable 81 mg PO Q OTHER DAY folic acid 1 mg tablet 1 mg PO Q OTHER DAY warfarin 2 mg tablet See Rx Instructions PO UD Rx Instructions: none q Saturday, 2mg x [address] [facility] orally use as directed; Per Spouse, the patient hasn't taken this for the past 2 days per MD instruction - 05/14/24 levothyroxine 50 mcg tablet 50 mcg PO QAM Qty: 90 3RF calcium carbonate-vitamin D3 600 mg-10 mcg (400 unit) tablet 1 tab PO DAILY Qty: 90 3RF citalopram 20 mg tablet 20 mg PO QAM Qty: 90 3RF allopurinol 100 mg tablet 100 mg PO DAILY Qty: 90 3RF isosorbide mononitrate 30 mg tablet extended release 24 hr 30 mg PO QAM Qty: 90 3RF atorvastatin 40 mg tablet 40 mg PO HS pramipexole 0.125 mg tablet 0.125 mg PO QPM Qty: 90 1RF Rx Instructions: administer 2 - 3 hours before bedtime pregabalin [Lyrica] 100 mg capsule 100 mg PO PM Qty: 90 0RF amlodipine 2.5 mg tablet 0 mg PO QAM Rx Instructions: Spouse states that he isn't sure of this medication, says it sounds familiar but he cannot confirm. Original Directions: 2.5mg by mouth every morning lisinopril 5 mg tablet 5 mg PO HS metoprolol succinate 25 mg tablet extended release 24 hr 25 mg PO BID Discontinued triamcinolone acetonide 0.1 % cream 1 applic topical BID PRN (Reason: Skin Irritation) Discharge Orders: Discharge Order (Routine); Ordered 05/16/24 Ordered By: Marvin Newby/Other Patient Handouts: Treating Aphasia, Stroke Prevention For Caregiver Admission Data Admit Date/Time: 05/15/24 16:24 Attending Provider: Megha Sorensen Admit Provider: Cristhian Edgar Primary Care Provider: Abigail Saldana Other Providers: Cristhian Edgar; Taurus Mancilla Other Interventions: Discharge Summary Assessment (RN) Last Done: 05/16/24 16:34 Supervising Physician Co-Signing Physician Notes I personally examined the patient and verified cole points of history and exam, discussed case, and agree with decision making and plan documented by Dr. Cade. Evaluated patient with daughter and granddaughter at bedside today. Patient appears comfortable, lungs clear b/l to auscultation, regular rate and rhythm, no acute distress. Patient, in addition to her family, feel that her speech is back to baseline thankfully. We reviewed the diagnostics obtained in the hospital and recommendations to follow-up with neurology outpatient. Reviewed importance of medication adherence, blood pressure control, and follow-up. Patient reports having 3 men living with her at home that can help support her on a day-to-day basis. Resident Activity Tracking Resident Involvement: Resident Care Provided Care Provided: Adult Hospital Medicine
[2024-05-16 16:35] VITALS: PULSE 62
== END 2024-05-16 17:15 | disposition home or self-care (01) | DRG 886 ==
LOC: 2E 14:56 → ED 14:56 → SUATTDRO 17:33 → 2E 20:22 → SUATTDRO 05-15 16:24

== ENCOUNTER 2024-07-26 09:10 | Inpatient (IN) ==
[2024-07-26 09:43] LABS: iSTAT Creatinine 2.9 mg/dl (0.6-1.3); iSTAT Hemoglobin 6.1 g/dl (12.0-16.0); iSTAT Ionized Calcium 1.17 mmol/l (1.12-1.32); iSTAT Potassium 5.5 mmol/L (3.3-5.0)
--- NOTE | 2024-07-26 09:43 | XRay Report ---
XR chest 1V portable HISTORY: 74 years-old Female GIB, aspiration acute chest pain with GI bleed COMPARISON: 05/14/2024 TECHNIQUE: AP view of the chest FINDINGS: Cardiac silhouette is enlarged. Median sternotomy with cardiac valvular prosthesis. No pneumothorax, pleural effusion or pulmonary edema. Mild linear bibasilar subsegmental atelectasis/scarring. Postope rative changes of the cervical spine. IMPRESSION: Cardiomegaly without acute process. ACT 112: Negative or not required by law. The above report was generated using voice recognition software. It may contain grammatical, syntax o r spelling errors. Electronically signed by: Donovan Clinton M.D. 07/26/2024 9:41 AM
[2024-07-26 09:47] LABS: Hematocrit (blood only) 17.5 % (37.0-47.0); Hemoglobin 5.6 g/dl (12.0-16.0); Mean Corpuscular Hemoglobin 31.1 pg (25.0-34.0); Mean Corpuscular Volume 97.2 fL (80.0-100.0); Mean Platelet Volume 11.1 fL (9.4-12.4); Nucleated RBC # (auto) 0.02 K/uL (0.00-0.12); Nucleated RBC % (auto) 0.1 %; Platelet Count 245 K/uL (130-400); RDW Standard Deviation 56.5 fL (36.4-46.3); White Blood Count 13.84 K/ul (4.8-10.8)
[2024-07-26] MEDS ORDERED: SODIUM CHLORIDE 0.9% 50 ML IV PRN (09:48)
[2024-07-26] MEDS ORDERED: SODIUM CHLORIDE 0.9% 100 ML IV PRN (09:48)
[2024-07-26] MEDS: FAMOTIDINE 20MG IV PUSH 20 MG/5 ML SYR IV STA (09:54)
[2024-07-26] MEDS: PANTOprazole 80 MG in DEXTROSE 5% 100 ML IV ONE (09:54)
[2024-07-26 09:57] LABS: Alanine Aminotransferase 5 U/L (7-52); Albumin Globulin Ratio 1.1 (0.9-2); Albumin Level 3.1 gm/dl (3.4-5.0); Alkaline Phosphatase 73 U/L (34-104); Anion Gap 8 (3-11); Aspartate Aminotransferase 10 U/L (13-39); BUN Creatinine Ratio 34.6 (10-20); Bilirubin,Total 0.6 mg/dl (0.2-1.0); Blood Urea Nitrogen 92 mg/dl (6-23); Calcium 8.7 mg/dl (8.6-10.3); Carbon Dioxide 18 mmol/L (21-32); Chloride 118 mmol/L (98-107); Globulin 2.7 gm/dl (2.5-4.0); Glucose 153 mg/dl (70-99(Fasting)); Potassium 5.4 mmol/L (3.5-5.1); Sodium 144 mmol/L (136-145); Total Protein 5.8 gm/dl (6.0-8.3)
--- NOTE | 2024-07-26 10:00 | Emergency Department Note ---
Impression & Plan Acute upper GI hemorrhage, Anemia requiring transfusions, Elevated INR, Acute hyperkalemia, Atrial fibrillation ED Provider Note NAME: CHEYANNE JETER AGE: 74 SEX: F : 1950 ARRIVES VIA: Ambulance INFORMANT: Patient, ED PROVIDER(S): Santo Chaney MD CHIEF COMPLAINT: GI bleed HPI:This is a 74-year-old female currently on warfarin presenting for GI bleed. This is a 74-year-old male present for GI bleed. Patient notes that she began having symptoms about 24 to 48 hours ago. She is noted black coffee-ground emesis. She noticed black tarry stools in addition. She does not know her last INR. She reportedly was very weak, pale upon EMS arrival. Blood pressures in the 80s. She was given 5 to cc of fluid with improvement. She notes feeling weak and tired currently. ROS: See above HPI for pertinent positives & negatives. A total of 10 systems reviewed and were otherwise negative. PAST MEDICAL HISTORY: See Below PAST SURGICAL HISTORY: See Below FAMILY HISTORY: See Below SOCIAL HISTORY: See Below HOME MEDICATIONS: See Below ALLERGIES: See Below VITALS: See Below PHYSICAL EXAMINATION: General: Pale, unwell Head: Normocephalic and atraumatic Eyes: Normal inspection, extraocular muscles intact Ear, nose, throat: Normal external exam Neck: Normal range of motion Respiratory: lungs clear to auscultation bilaterally Cardiovascular: Regular rate/rhythm, no murmur GI: soft, nontender, no guarding or rebound Extremities: nontender, moves all extremities Neuro: The patient awake and alert, appropriately conversive, no focal deficits, symmetric faces Skin: Warm, dry, and intact MEDICAL DECISION MAKING: This is a 74-year-old female, on warfarin, resent for GI bleed. Will get PT/INR, basic blood work, hemoglobin, Protonix IV and drip. Patient has coffee and emesis stains on her chest and close. -She is getting hypotensive, will give 2 units PRBCs. Hemoglobin is 5.6. -Lab results come back with the INR of 6.7. - Otherwise creatinine is 2.66, fairly stable, hypokalemia noted 5.4 -Will give IV vitamin K, 10 mg for the significant elevated INR and active GI bleed with patient being an extremis. -Discussed with Dr. Blankenship, pathologist, who does recommend giving Kcentra in addition -Discussed with Dr. Ohara, GI physician, who currently recommends resuscitation, reversal of elevated INR. Patient will get scoped after this. -Patient's vital signs are improving, now blood pressure is rising after initiation of blood transfusion. -Patient care discussed Dr. Edgar, hospitalist, who assessed patient to his service Differential diagnosis: Lower GI bleed, peptic ulcer disease, upper GI bleed, esophageal varices Independent History obtained from: EMS Diagnostics interpreted by me: ECG: ECG independently interpreted by me with atrial fibrillation, rate of 98, normal QRS, normal QTc, no ST segment elevations consistent with STEMI criteria Cardiac Monitoring: An order was placed for continuous cardiac monitoring. The monitor shows a rate of 85 with sinus rhythm. Critical Care Note: I have personally spent 37 minutes of critical care time in the direct management of this patient. This includes bedside care, interpretation of diagnostic studies, and testing, discussion with consultants, patient, and family members, and other required patient management activities. This 37 minutes is in excess of all separately billable procedures. 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 Carotid artery plaque Seizure-like activity Stroke-like episode Acquired stuttering Hypomagnesemia Hypokalemia Stroke-like symptoms (Acute) Expressive aphasia (Acute) Hematuria Proteinuria Osteoporosis Chronic anemia Vitamin D deficiency Warfarin anticoagulation (Acute) CKD (chronic kidney disease) stage 4, GFR 15-29 ml/min Hx of aortic valve replacement, mechanical H/O mitral valve replacement with mechanical valve Effusion of knee joint right (Acute) Ambulatory dysfunction Dizziness Paroxysmal SVT (supraventricular tachycardia) (Chronic) Chronic constipation (Chronic) RLS (restless legs syndrome) (Chronic) Chronic pain (Chronic) Hypertension (Chronic) BIRDIE (obstructive sleep apnea) (Chronic) Dyslipidemia (Chronic) Hypothyroidism (Chronic) Medical History Acute kidney injury Open fracture of left distal radius (08/19/23) from a fall-saw orthopedics in the ED and was admitted to ID per ortho note History of CVA (cerebrovascular accident) History of transfusion of packed RBC 08/2023 1 unit CKD (chronic kidney disease), stage III Surgical History S/P ORIF (open reduction internal fixation) fracture Lt distal radius 08/23/23 Dr. Oscar Jones S/P total abdominal hysterectomy H/O neck surgery History of cholecystectomy H/O oophorectomy S/P repair of paraesophageal hernia History of total right hip replacement S/P lumbar fusion H/O hemorrhoidectomy Family History Father Heart disease Mother Stroke Social History Smoking Status: Never smoker Second Hand Exposure: No; Do You Dip or Chew Tobacco: No; Hx Alcohol Use: No Hx Substance Use: No Preferred Language: Chinese Communication Ability: Effective Visual Impairment: No Limitations Hearing Ability: Hard of Hearing Asbestos Handler Required: No Beliefs That Will Affect Care: None marital status: Current Living Situation: Spouse Current Living Situation Comment: [place] current occupational status: retired How many Children do You have: 2 Feels Safe at Home: Yes Safety Concerns: Feels Safe At This Time Childhood Exposure to Second-Hand Smoke: No Diet: regular Diet Comment: regular caffeine: No Dental Care, Regularly: No Physical Activity Frequency: Does not Exercise Seatbelt Use: always Sunscreen Use: No Assistive Devices: Cane Allergies Allergies Allergy/AdvReac Type Severity Reaction Status Date / Time doxycycline Allergy Unknown CAN'T Verified 07/26/24 12:18 REMEMBER sulfamethoxazole Allergy Unknown CAN'T Verified 07/26/24 12:18 REMEMBER trimethoprim Allergy Unknown CAN'T Verified 07/26/24 12:18 REMEMBER Home Meds Home Medications Medication Instructions Recorded Confirmed atorvastatin 40 mg tablet 40 mg PO HS 07/19/23 07/26/24 metoprolol succinate 25 mg 25 mg PO BID 08/19/23 07/26/24 tablet,extended release 24 hr folic acid 1 mg tablet 0 mg PO DAILY 05/13/24 07/26/24 amlodipine 2.5 mg tablet 2.5 mg PO QAM 05/14/24 07/26/24 aspirin 81 mg tablet,delayed 81 mg PO DAILY 06/18/24 07/26/24 release cyanocobalamin (vitamin B-12) 1,000 mcg IM MONTHLY PRN B12 07/26/24 07/26/24 1,000 mcg/mL injection solution Deficiency Previous Rx's Medication Instructions Recorded levothyroxine 50 mcg tablet 50 mcg PO QAM #90 tabs 01/06/24 calcium 600 mg (as 1 tab PO DAILY #90 tabs 03/10/24 carbonate)-vitamin D3 10 mcg (400 unit) tablet citalopram 20 mg tablet 20 mg PO QAM #90 tabs 03/10/24 pramipexole 0.125 mg tablet 0.125 mg PO QPM #90 tabs 04/21/24 pregabalin 100 mg capsule (Lyrica) 100 mg PO PM #90 caps 04/21/24 oxycodone 5 mg tablet 5 mg PO Q6H PRN pain #8 tabs 07/11/24 oxycodone-acetaminophen 5 mg-325 1 tab PO Q8H PRN pain #10 tabs 07/14/24 mg tablet allopurinol 100 mg tablet 100 mg PO DAILY #90 tabs 07/22/24 isosorbide mononitrate 30 mg 30 mg PO QAM #90 tabs 07/22/24 tablet,extended release 24 hr levetiracetam 500 mg tablet 500 mg PO BID #60 tabs 07/22/24 (Keppra) lisinopril 5 mg tablet 5 mg PO HS #90 tabs 07/22/24 warfarin 2 mg tablet See Rx Instructions PO UD #78 tabs 07/24/24 Results & Data (ED) Vital Signs Vital Signs - 24 hr 07/26/24 09:11 07/26/24 09:12 07/26/24 09:31 Temperature 36.8 C Temperature Source Oral Pulse Rate 92 H 93 H Pulse Rate [Right Finger] Respiratory Rate 20 Respiratory Effort / Characteristics Respiratory Depth Respiratory Pattern Blood Pressure 117/49 L Blood Pressure [Left Arm] Blood Pressure Mean 71 Blood Pressure Mean [Left Arm] Pulse Oximetry 100 100 Oxygen Delivery Method Room Air Room Air Sepsis Recent Fever Within 48 Hours No Sepsis New/Unexplained Change in Mental Status N/A Sepsis Action Taken by Nursing No Action Required 07/26/24 09:33 07/26/24 09:44 07/26/24 09:53 Temperature Temperature Source Pulse Rate Pulse Rate [Right Finger] 92 H 90 90 Respiratory Rate 16 20 24 Respiratory Effort / Characteristics Non-Labored Spontaneous Non-Labored Spontaneous Respiratory Depth Normal Normal Respiratory Pattern Regular Blood Pressure Blood Pressure [Left Arm] 96/47 L 98/48 L 92/51 L Blood Pressure Mean Blood Pressure Mean [Left Arm] 63 64 64 Pulse Oximetry 100 100 100 Oxygen Delivery Method Room Air Room Air Room Air Sepsis Recent Fever Within 48 Hours Sepsis New/Unexplained Change in Mental Status Sepsis Action Taken by Nursing 07/26/24 10:02 07/26/24 10:10 07/26/24 10:23 Temperature Temperature Source Pulse Rate Pulse Rate [Right Finger] 88 87 88 Respiratory Rate 12 20 16 Respiratory Effort / Characteristics Non-Labored Spontaneous Non-Labored Spontaneous Non-Labored Spontaneous Respiratory Depth Normal Normal Normal Respiratory Pattern Regular Blood Pressure Blood Pressure [Left Arm] 97/46 L 97/53 L 100/46 L Blood Pressure Mean Blood Pressure Mean [Left Arm] 63 67 64 Pulse Oximetry 97 100 96 Oxygen Delivery Method Room Air Room Air Room Air Sepsis Recent Fever Within 48 Hours Sepsis New/Unexplained Change in Mental Status Sepsis Action Taken by Nursing Laboratory Data 07/26/24 09:24 07/26/24 09:24 Lab Results 07/26/24 07/26/24 07/26/24 Range/Units 09:24 09:31 10:59 WBC 13.84 H (4.8-10.8) K/ul RBC 1.80 L (4.20-5.40) M/uL Hgb 5.6 L* (12.0-16.0) g/dl POC Hgb 6.1 L* (12.0-16.0) g/dl Hct 17.5 L* (37.0-47.0) % POC Hct 18 L* (37-47) % MCV 97.2 (80.0-100.0) fL MCH 31.1 (25.0-34.0) pg MCHC 32.0 (32.0-36.0) g/dL RDW Std Deviation 56.5 H (36.4-46.3) fL RDW Coeff of Gisele 16.0 H (11.5-14.5) % Plt Count 245 (130-400) K/uL MPV 11.1 (9.4-12.4) fL Immature Gran % (Auto) 1.6 % Neut % (Auto) 87.3 % Lymph % (Auto) 5.9 % [place] % (Auto) 5.1 % Eos % (Auto) 0.0 % Baso % (Auto) 0.1 % Neut # (Auto) 12.07 H (1.40-6.50) K/uL Lymph # (Auto) 0.82 L (1.20-3.40) K/uL [place] # (Auto) 0.71 H (0.11-0.59) K/uL Eos # (Auto) 0.00 (0.00-0.50) K/uL Baso # (Auto) 0.02 (0.00-0.20) K/uL Immature Gran # (Auto) 0.22 H (0.01-0.20) K/uL Absolute Nucleated RBC 0.02 (0.00-0.12) K/uL Nucleated RBC % (auto) 0.1 % Polychromasia 1+ Tear Drop Cells 1+ Ovalocytes 1+ PT 61.3 H (9.0-12.0) Seconds INR 6.7 H* (0.9-1.1) APTT 74 H (21-31) Seconds PTT Ratio 2.8 VBG pH 7.20 L (7.36-7.41) VBG pCO2 43 (38-50) mmHg VBG pO2 32 mmHg VBG HCO3 17 mmol/L VBG O2 Saturation < 60.0 % VBG Base Excess -10.3 mEq/L POC Sodium 145 H (135-144) mmol/L Sodium 144 (136-145) mmol/L POC Potassium 5.5 H (3.3-5.0) mmol/L Potassium 5.4 H (3.5-5.1) mmol/L POC Chloride 119 H (101-112) mmol/L Chloride 118 H (98-107) mmol/L Carbon Dioxide 18 L (21-32) mmol/L POC Total CO2 15 L (24-31) mmol/L Anion Gap 8 (3-11) POC Anion Gap 17.0 (16-25) mmol/L POC BUN 89 H (7-18) mg/dl BUN 92 H (6-23) mg/dl Creatinine 2.66 H (0.6-1.2) mg/dl POC Creatinine 2.9 H (0.6-1.3) mg/dl Est Cr Clr Drug Dosing Not Reportable eGFR 18.27 BUN/Creatinine Ratio 34.6 H (10-20) Glucose 153 H (70-99(Fasting)) mg/dl POC Glucose (other) 143 H (70-99) mg/dl Calcium 8.7 (8.6-10.3) mg/dl POC Ioniz Calcium Carola 1.17 (1.12-1.32) mmol/l Total Bilirubin 0.6 (0.2-1.0) mg/dl AST 10 L (13-39) U/L ALT 5 L (7-52) U/L Alkaline Phosphatase 73 (34-104) U/L Total Protein 5.8 L (6.0-8.3) gm/dl Albumin 3.1 L (3.4-5.0) gm/dl Globulin 2.7 (2.5-4.0) gm/dl Albumin/Globulin Ratio 1.1 (0.9-2) Blood Type O Positive Antibody Screen NEGATIVE Crossmatch See Detail Administered Medications Pantoprazole Sodium 40 mg/ (Dextrose) 100 mls @ 20 mls/hr IV Q5H [facility] Stop: 08/25/24 09:44 Last Admin: 07/26/24 16:34 Dose: 8 mg/hr, 20 mls/hr Documented By: Infusion: 07/26/24 15:01 Dose: Infused Documented By: Admin: 07/26/24 10:01 Dose: 8 mg/hr, 20 mls/hr Documented By: ANTONIO Discontinued Medications Dextrose (Dextrose 50% 50 Ml Syringe) 50 ml IV 1223 STA Stop: 07/26/24 12:24 Last Admin: 07/26/24 14:07 Dose: 50 ml Documented By: HERNAN Pantoprazole Sodium 80 mg/ (Dextrose) 120 mls @ 480 mls/hr IV NOW ONE Stop: 07/26/24 09:33 Last Infusion: 07/26/24 12:01 Dose: Infused Documented By: Admin: 07/26/24 09:54 Dose: 480 mls/hr Documented By: ANTONIO Famotidine (Pepcid 20mg Iv Push) 20 mg in 5 mls @ 2.5 mls/min IV NOW STA Stop: 07/26/24 09:20 Last Admin: 07/26/24 09:54 Dose: 2.5 mls/min Documented By: ANTONIO Phytonadione 10 mg/ Dextrose 51 mls @ 102 mls/hr IV ONE ONE Stop: 07/26/24 10:53 Last Infusion: 07/26/24 12:01 Dose: Infused Documented By: Admin: 07/26/24 10:45 Dose: 102 mls/hr Documented By: LAURA Prothrombin Complex Concent ( (Human) 2,500 units/ Syringe) 100 mls @ 10 mls/min IV 1045 ONE; Protocol Stop: 07/26/24 10:54 Last Admin: 07/26/24 11:22 Dose: 10 mls/min Documented By: MAGGIE Calcium Gluconate () 1,000 mg in 60 mls @ 240 mls/hr IV NOW STA Stop: 07/26/24 12:36 Last Infusion: 07/26/24 14:38 Dose: Infused Documented By: Admin: 07/26/24 13:45 Dose: 240 mls/hr Documented By: HERNAN Insulin Human Regular 10 units (/ Syringe) 9.9 mls @ 3 mls/sec IV 1230 ONE Stop: 07/26/24 12:31 Last Admin: 07/26/24 14:08 Dose: 3 mls/sec Documented By: HERNAN Co-signed By: CATARINO Sodium Bicarbonate (Sodium Bicarb 8.4% Inj 50 Meq/50 Ml Syr) 50 meq IV NOW STA Stop: 07/26/24 11:14 Last Admin: 07/26/24 11:20 Dose: 50 meq Documented By: MAGGIE Sodium Bicarbonate (Sodium Bicarb 8.4% Inj 50 Meq/50 Ml Syr) 50 meq IV NOW STA Stop: 07/26/24 12:11 Last Admin: 07/26/24 13:52 Dose: 50 meq Documented By: HERNAN Imaging Data Radiologist's Impression: Chest X-Ray 07/26/24 09:20 XR chest 1V portable HISTORY: 74 years-old Female GIB, aspiration acute chest pain with GI bleed COMPARISON: 05/14/2024 TECHNIQUE: AP view of the chest FINDINGS: Cardiac silhouette is enlarged. Median sternotomy with cardiac valvular prosthesis. No pneumothorax, pleural effusion or pulmonary edema. Mild linear bibasilar subsegmental atelectasis/scarring. Postoperative changes of the cervical spine. IMPRESSION: Cardiomegaly without acute process. ACT 112: Negative or not required by law. The above report was generated using voice recognition software. It may contain grammatical, syntax or spelling errors. Electronically signed by: Donovan Clinton M.D. 07/26/2024 9:41 AM Discharge Plan Visit Data Chief Complaint: GI Bleed Stated Complaint: GI BLEED ED Provider: Santo Chaney Discharge Problem: Acute upper GI hemorrhage, Anemia requiring transfusions, Elevated INR, Acute hyperkalemia, Atrial fibrillation Patient Disposition: Admitted As Inpatient Discharge Instructions Interventions: ED Discharge Assessment Last Done: 07/26/24 12:33
[2024-07-26] MEDS: PANTOprazole 40 MG in DEXTROSE 5% MINI-B 100 ML IV SCH (10:01)
[2024-07-26 10:03] LABS: Basophils # (auto) 0.02 K/uL (0.00-0.20); Basophils % (auto) 0.1 %; Immature Granulocytes # (auto) 0.22 K/uL (0.01-0.20); Immature Granulocytes % (auto) 1.6 %; Lymphocytes # (auto) 0.82 K/uL (1.20-3.40); Lymphocytes % (auto) 5.9 %; Monocytes # (auto) 0.71 K/uL (0.11-0.59); Monocytes % (auto) 5.1 %; Neutrophils # (auto) 12.07 K/uL (1.40-6.50); Neutrophils % (auto) 87.3 %; Ovalocytes 1+; Polychromasia 1+; Tear Drop Cells 1+
--- OUTSIDE RECORDS SUMMARY | 2024-07-26 10:20 | External Medical Summary | Summary of Care ---
Author Name Unknown Organization [facility] Address [address] [facility] [place] [address] Phone [phone] Care Team Providers Care Operations Examiner Name Role Phone Unavailable Primary Care Provider Unavailabl e Reason for Visit * Reason Comments eRx-Medication Refill Encounter Details Date Type Department Care Team (Late st Contact Info) Description 07/21/2024 Refill Cardiology [address] [place] [id number] Marissa Schrader PA-C [address] [place] [id number] Chronic kidney disease, stage 4 (severe) ([facility])*; Dyslipidemia, goal LDL below 100; Acquired hypothyroidism Allergies Active Allergy Reactions Criticality Noted Date Comments Doxycycline Nausea/vomiting Low 01/29/2002 vomiting Sulfamethoxazole W/Trimethop rim (Co-Trimoxazole) Nausea/vomiting 05/05/2008 documented as of this encounter (statuses as of 07/24/2024) Medications Colestipol HCl 1 GM Oral Tablet Take 2 Tabs by mouth 2 times a day. 360 Tab 3 2020 Active Isosorbide Mononitrate ER 30 MG Oral Tablet Extended Release 24 Hour (Imdur)Indications :HTN, goal below 140/90,PSVT (paroxysmal supraventricular tachycardia) ([facility]) Take 1 Tablet by mouth in the morning. 90 Tablet 3 2022 Active Triamcinolone Acetonide 0.1 % External Cream (Aristocort)Indica tions:Dyshidrotic hand dermatitis Apply topically to affected area 2 times a day. To affected area for up to 2 weeks 60 g 2 2022 Active Citalopram Hydrobromide 20 MG Oral Tablet (CeleXA) TAKE 1 TABLET BY MOUTH EVERY DAY IN THE MORNING 90 Tablet 3 2022 Active Levothyroxine Sodium 50 MCG Oral Tablet (Levoxyl)Indicatio ns:Acquired hypothyroidism TAKE 1 TABLET ONCE DAILY IN THE MORNING AT LEAST 30 MINUTES PRIOR TO BREAKFAST OR OTHER MEDICATIONS 90 Tablet 3 2022 Active Allopurinol 100 MG Oral Tablet (Zyloprim)Indicati ons:Chronic kidney disease, stage 4 (severe) (HCC) Take 1 Tablet by mouth in the morning. 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 and with stage 4 chronic kidney disease (HCC) TAKE 1 TABLET BY MOUTH EVERY DAY IN THE MORNING 90 Tablet 3 2023 Active Warfarin Sodium 2.5 MG Oral Tablet (Coumadin)Indicati ons:History of mitral valve replacement with mechanical valve,History of mechanical aortic valve replacement,Cerebr ovascular disease, arteriosclerotic, post-stroke,Antico agulation management encounter,care home current use of anticoagulant therapy TAKE 1/2 TO 1 TABLET DAILY OR DIRECTED BY ANTICOAGULATION CLINIC 65 Tablet 1 2023 Active Metoprolol Succinate ER 25 MG Oral Tablet Extended Release 24 Hour (toPROL XL)Indications:His tory of mitral valve replacement with mechanical valve,History of mechanical aortic valve replacement,PSVT (paroxysmal supraventricular tachycardia) (HCC),Rheumatic heart disease Take 1 tablet in the morning and take 1 tablet in the evening 180 Tablet 3 2023 Active Atorvastatin Calcium 40 MG Oral Tablet (Lipitor)Indicatio ns:Dyslipidemia, goal LDL below 100 TAKE 1 TABLET BY MOUTH EVERY DAY 90 Tablet 2024 Active Atorvastatin Calcium 40 MG Oral Tablet (Lipitor)Indicatio ns:Dyslipidemia, goal LDL below 100 TAKE 1 TABLET BY MOUTH EVERY DAY 90 Tablet 3 07/22 Discontinued documented as of this encounter (statuses as of 07/24/2024) Active Problems Problem Noted Date Diagnosed Date [...] 06/21/2015 Dyslipidemia, goal LDL below 100 05/24/2009 Overview (05/24/2009): Per Lipid Taxonomy. HTN, goal below 140/90 04/22/2009 Overview (04/22/2009): Modified per HTN Taxonomy. CEREBROVASCULAR DZ, POST-STROKE 09/28/2008 Overview (09/30/2008): Modified per CVA protocol #8 Obstructive sleep apnea syndrome 09/02/2007 Overview (02/26/2014): 02/2014 -- pt returned CPAP 2013 PSG -- AHI 7.9, CPAP 5-15 cwp, AHP 01/16/10 -- CPAP 11cwp through AHP, full face mask 02/08/10 -- D/C CPAP Persistent insomnia 05/05/2007 Pulmonary hypertensive arterial disease 09/19/19 03 Acquired hypothyroidism 08/06/2002 RHEUMATIC HEART DIS NOS 12/31/2000 SBE (subacute bacterial endocarditis) prophylaxi s candidate documented as of this encounter (statuses as of 07/24/2024) Resolved Problems Problem Noted Date Diagnosed Date [...] disease) 10/02/2011 02/21/2018 Genetic Sleep Disorder [facility] Other*[id number] 05/22/2011 01/24/2016 ACUTE SINUSITIS 07/03/2010 04/29/2015 Esophageal reflux 07/03/2010 04/29/2015 Accidental poisoning by [place] tobacco smoke 07/03/2010 02/21/2018 Overview (09/20/2015): ICD-10 update of inactive term Irritable bowel syndrome 03/28/201012/2017 KIDNEY DZ,CHRONIC (GFR 30-59) STAGE III 01/05/2010 10/27/2020 Overview (01/05/2010): Per CKD Protocol, #1 Abdominal pain, left lower quadrant 12/26/2009 04/29/2015 Ulcerative colitis 10/20/2009 8 Overview (10/20/2009): Focal active colitis seen at the [facility] on colonoscopy. Ulcers found on colonoscopy in the ascending and transverse colon. Abnormal levels of other serum enzymes 08/31/2009 04/29/2015 Overview (03/18/2017): ICD-10 update of inactive term Chronic diarrhea 08/30/2009 02/21/2018 Mixed dyslipidemia 04/13/2009 9 Overview (05/24/2009): Per Lipid Taxonomy. Heart valve replaced 02/25/2009 016 Overview (03/20/2021): ICD-10 update of inactive term Mild cognitive impairment 01/31/2009 COPD, mild 09/27/2008 10/21/2014 Overview (06/14/2011): Per COPD Protocol #24. Last PFT - 2009-09-23 Hypomagnesemia 01/23/2008 04/29/2015 Menopause 05/05/2007 04/29/2015 ADVANCE DIRECTIVE INFORMATION 09/20/2005 04/20/2024 Overview (09/20/2005): No, Advance Directive brochure offered , patient declined. Lateral epicondylitis 08/23/20042014 Tricuspid valve regurgitation 09/18/2002 02/21/2018 Tricuspid valve disease 09/18/200212/2017 LUMB-LUMBOSAC DISC DEGEN 08/06/200212/2017 BENIGN HYPERTENSION 01/29/2002 04/22/20 09 Overview (04/22/2009): Modified per HTN Taxonomy. Mitral stenosis 01/29/2002 07/30/2017 Mitral valve regurgitation 01/29/2002 0 07/30/2017 Mitral valve disorder 01/29/20022014 RHEUMATIC AORTIC INSUFF 01/29/200207/18 Vertigo 08/05/2001 04/29/2015 Cervicalgia 08/05/2001 04/29/2015 CVA 12/31/2000 09/30/2008 Overview (09/30/2008): Modified per CVA protocol #8 ANEMIA NOS 10/02/2000 04/29/2015 HTN KIDNEY DZ, BENIGN, STAGE 1-4 04/29/2015 COPD, severity to be determined 06/14/2011 Cardiomegaly 04/29/2015 Diverticulosis of colon 12/2017 Diarrhea 04/29/2015 documented as of this encounter (statuses as of 07/24/2024) Immunizations Name Administration Dates Next Due COVID-19 mRNA, LNP-s, No Pre serve, 2-Dose Series ([employer]) 04/14/2021,03/23/2021 H1N1 2009 Influenza, IM 09/14/2009 Hepatitis B, 20+ yrs 07/29/2023(Deferred: Done E lsewhere) Pneumococcal Conjugate Vacc, 13 Valent (Prevnar) 04/29/2015 Pneumococcal Polysaccharide PPV23 (Pneumovax) 05/08/2016,04/07/2007 Season Influenza, Quad, PF, Adjuvanted, 65+ Yrs, IM (FLUAD) 04/26/2020 Seasonal Influenza Vac., MDV , IM, 0.5 mL (Fluzone) 03/09/2014,03/12/2013,03/21/2012,03/14,08/08/2010,03/07/2009,04/07/2008 ,04/07/2007,03/22/2006 Seasonal Influenza, PF, 6 M & above, IM , (FluLaval or Fluzone) 02/21/2018,04/29/2017 Seasonal Influenza, Quadriva lent Hd (Fluzone Hd) 2022,04/11/2021 Seasonal Influenza, Quadriva lent, No Preserve, IM 05/08/2016,04/29/2015 Seasonal Influenza, Trivalen t, Adjuvanted, 65+ YRS, PF, (Fluad) 02/23/2019 TD - Tetanus/Diptheria (ADULT) 06/17/2004 TDAP, Age 7 and older, IM (Adacel) 10/17/2010 Varicella Zoster Vaccine (Adult) 07/21/2012 documented as of this encounter Social History Tobacco Use Types Packs/Day Years Used Date Smoking Tobacco: Never Smokeless Tobacco: Never Alcohol Use Standard Drinks/Week Comments No 0 (1 standard drink = 0.6 oz pur e alcohol) PHQ-2 Answer Date Recorded PHQ Adult Total Score 0 10/10/2021 Comments No Sex and Gender Information Value Date Recorded Sex Assigned at Not on file Legal Sex Female 5:27 AM EST Gender Identity Not on file Sexual Orientation Not on file 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 Patient was notified. Unable to reach patient, as there was no answer and no VM available to leave message. Letter was created to be sent out to the patient. * Telephone Encounter - Krysta Bailey [facility] - 07/22/2024 11:46 AM ESTSigned Prescriptions: Disp Refills Atorvastatin Calcium 40 MG Oral Tablet (Li*90 Tab*0 Sig: TAKE 1 TABLET BY MOUTH EVERY DAY Authorizing Provider: MARISSA SCHRADER User: KRYSTA BAILEY * Telephone Encounter - Krysta Bailey [facility] - 07/22/2024 11:41 AM EST Provided 90 days supply with 0 refill. Per refill protocol patient should have OV, lipid panel on file within past year. Reviewed : Care [facility]/Health Maintenance medications list for any routine labs typically ordered for this patient. Lab orders placed. Please contact patient to schedule office visit with CARDIOLOGY and advise of labs ordered for blood draw AND URINE specimen (patient will have to be able to void to provide sample). Recommend patient to fast if able for labs. Patient may still have water and regular medications. Advise to obtain labs before requesting the next refill. Last Visit: 01/31/2023 (in office) RTC 6 months Next Visit: Visit date not found Krysta Bailey, Pharm.D. Clinical Pharmacist [facility] [phone] documented in this encounter Plan of Treatment Scheduled Orders Name Type Priority Associated Diagnoses Orde r Schedule LIPID PANEL WITH DIRECT LDL IF TG IS HIGH Lab Routine Dyslipidemia, goal LDL below 100 Expected: 07/22/2024 (Approximate), Expires: 07/22/2025 COMPREHENSIVE METABOLIC PANEL Lab Routine Dyslipidemia, goal LDL below 100 Expected: 07/22/2024 (Approximate), Expires: 07/22/2025 ALBUMIN / CREATININE RATIO, URINE Lab Routine Chronic kidney disease, stage 4 (severe) (HCC) Expected: 07/22/2024, Expires: 07/22/2025 CBC Lab Routine Chronic kidney disease, stage 4 (severe) (HCC) Expected: 07/22/2024 (Approximate), Expires: 07/22/2025 TSH WITH FREE T4 IF INDICATED Lab Routine Acquired hypothyroidism Expected: 07/22/2024 (Approximate), Expires: 07/22/2025 PTH Lab Routine Acquired hypothyroidism Expected: 07/22/2024 (Approximate), Expires: 07/22/2025 PHOSPHORUS Lab Routine Chronic kidney disease, stage 4 (severe) (HCC) Expected: 07/22/2024 (Approximate), Expires: 07/22/2025 Scheduled Procedures Name Priority Associated Diagnoses Date/Ti me COLONOSCOPY FLEXIBLE PROXIMA L DIAGNOSTIC Recall Screening for malignant neoplasm of colon Health Maintenance Due Date Last Done Comments Cologuard 1995 Sigmoidoscopy 1995 Fecal Occult Blood Test 07/13/2012 07/13/19 12, 07/20/2009, 10/08/2000, Additional history exists Zoster Vaccines (2 of 3) 09/15/2012 07/21/2012 DTap/Tdap Vaccines (2 - Td or Tdap) 10/17/2020 10/17/2010, 06/17/2004 Depression Screening 10/10/2022 10/10/2021 Mammogram 09/26/2023 09/25/2022, 04/0 11/2021, 09/07/2020, Additional history exists GFR 11/28/2023 05/29/2023, 01/15, 12/24/2022, Additional history exists TSH 12/25/2023 12/24/2022, 05/18, 05/04/2022, Additional history exists PTH 02/02/2024 02/01/2023, 04/17, 03/02/2022, Additional history exists Phosphate 02/02/2024 02/01/2023, 12/15, 05/04/2022, Additional history exists COVID-19 Vaccine ( season) 2024 04/13/2023, 04/14/2021, 03/23/2021 Influenza Vaccine (FLU shot) (#1) 2024 04/13/2023, 2022, 04/11/2021, Additional history exists Hgb 05/29/2024 05/29/2023, 01/15, 12/24/2022, Additional history exists Albumin/Creatinine Ratio 07/11/2024 024, 08/06/2022, 03/02/2022, Additional history exists Nephrology Referral 07/11/2024 07/11/2023, 07/09/2013, 06/04/2006 Colonoscopy 11/25/2028 11/25/2018, 11/15, 12/19/2012, Additional history exists Colorectal Cancer Screening 11/25/2028 Pneumococcal Vaccine: 50+ Years Completed 05/08/2016, 04/29/2015, 04/07/2007 HPV (Gardasil) Vaccine Aged Out No lo nger eligible based on patient's age to complete this topic Hepatitis B Vaccine Aged Out No longe r eligible based on patient's age to complete this topic MENINGOCOCCAL (MENACTRA/MENVEO) Aged Out No longer eligible based on patient's age to complete this topic documented as of this encounter Medical Devices Implanted Type Area Embedded Linux Developer Device Identifier Shelf Expiration Date Model / Serial / Lot Alloderm 2x4 Sheet [id number](8 Units) - [id number] Implanted:Qty : 8 on 04/21/2012 [place] [facility] [place] - Human N/A: Esophagus [employer] DANTE 05/16/2013 [id number] / / [id number] documented as of this encounter Visit Diagnoses Diagnosis Chronic kidney disease, stage 4 (severe) (HCC)- Primary Dyslipidemia, goal LDL below 100 Other and unspecified hyperlipidemia Acquired hypothyroidism Unspecified hypothyroidism documented in this encounter Advance Directives * Full Code (Latest Code Status on File) Date Activated Date Inactivated Comments 04/21/2012 5:45 AM 04/23/2012 7:39 PM This order r eflects the patients wishes and were consensually agreed upon.
--- OUTSIDE RECORDS SUMMARY | 2024-07-26 10:20 | External Medical Summary | Summary of Care ---
Author Name Unknown Organization [facility] Address [address] [facility] [place] [address] Phone [phone] Care Team Providers Care Business Services Clerk Name Role Phone Unavailable Primary Care Provider Unavailabl e Reason for Visit * Reason Comments eRx-Medication Refill Encounter Details Date Type Department Care Team (Late st Contact Info) Description 07/21/2024 Refill Family Medicine [address] [phone] Astrid Diaz MD [address] [place], [place] [id number] [phone] History of mitral valve replacement with mechanical valve; History of mechanical aortic valve replacement; Cerebrovascular disease, arteriosclerotic, post-stroke; Anticoagulation management encounter; [facility] current use of anticoagulant therapy Allergies Active Allergy Reactions Criticality Noted Date Comments Doxycycline Nausea/vomiting Low 01/29/2002 vomiting Sulfamethoxazole W/Trimethop rim (Co-Trimoxazole) Nausea/vomiting 05/05/2008 documented as of this encounter (statuses as of 07/22/2024) Medications Colestipol HCl 1 GM Oral Tablet Take 2 Tabs by mouth 2 times a day. 360 Tab 3 2020 Active Isosorbide Mononitrate ER 30 MG Oral Tablet Extended Release 24 Hour (Imdur)Indications :HTN, goal below 140/90,PSVT (paroxysmal supraventricular tachycardia) (HCC) Take 1 Tablet by mouth in [...] replacement,Cerebr ovascular disease, arteriosclerotic, post-stroke,Antico agulation management encounter,terminal superintendent current use of anticoagulant therapy TAKE 1/2 [...] as of this encounter (statuses as of 07/22/2024) Active Problems Problem Noted Date Diagnosed Date [...] as of this encounter (statuses as of 07/22/2024) Resolved Problems Problem Noted Date Diagnosed Date [...] disease) 10/02/2011 02/21/2018 Genetic Sleep Disorder Resea [facility] Other*[id number] 05/22/2011 01/24/2016 ACUTE SINUSITIS 07/03/2010 04/29/2015 Esophageal [...] as of this encounter (statuses as of 07/22/2024) Immunizations Name Administration Dates Next Due COVID-19 mRNA, LNP-s, No Pre serve, 2-Dose Series (Pfizer) 04/14/2021,03/23/2021 H1N1 2009 Influenza, IM 09/14/2009 Hepatitis [...] encounter Miscellaneous Notes * Telephone Encounter - Lupe Lopez [facility] - 07/22/2024 11:40 AM ESTRefused Prescriptions: Disp Refills Warfarin Sodium 2.5 MG Oral Tablet (Coumad*65 Tab*1 Sig: TAKE 1/2 TO 1 TABLET DAILY OR DIRECTED BY ANTICOAGULATION CLINICRefused By: LUPE LOPEZ LReason for Refusal: Managed by another physician documented in this encounter Plan of Treatment Scheduled Procedures Name Priority Associated Diagnoses Date/Ti [...] this encounter Medical Devices Implanted Type Area Multilith Operator Device Identifier Shelf Expiration Date Model / Serial / Lot Alloderm 2x4 Sheet [id number](8 Units) - [id number] Implanted:Qty : 8 on 04/21/2012 [place] [facility] [place] - Human N/A: Esophagus [employer] DANTE 05/16/2013 [id number] / / [id number] 2 documented as of this encounter Visit Diagnoses Diagnosis History of mitral valve replacement with mechanical valve Heart valve replaced by other means History of mechanical aortic valve replacement Heart valve replaced by other means Cerebrovascular disease, arteriosclerotic, post-stroke Cerebral atherosclerosis Anticoagulation management encounter Encounter for therapeutic drug monitoring [facility] current use of anticoagulant therapy documented in this encounter Advance Directives * Full Code (Latest Code Status on File) Date Activated Date Inactivated Comments 04/21/2012 5:45 AM 04/23/2012 7:39 PM This order r eflects the patients wishes and were consensually agreed upon.
[2024-07-26 10:22] LABS: Partial Thromboplastin Ratio 2.8; Partial Thromboplastin Time 74 Seconds (21-31); Prothrombin Time 61.3 Seconds (9.0-12.0)
[2024-07-26 10:24] LABS: INR 6.7 (0.9-1.1)
[2024-07-26] MEDS: PHYTONADIONE 10 MG in DEXTROSE 5% 50 ML IV ONE (10:45)
--- NOTE | 2024-07-26 10:49 | History & Physical Report ---
Date of Service July 26, 2024 Assessment & Plan (1) Acute upper GI bleeding: Plan: Suspected secondary to recent ibuprofen use with recent ankle sprain and supratherapeutic INR Continue pantoprazole IV drip Consult gastroenterology for consideration of EGD more stable Bedrest, strict NPO Hold all PO medications, can switch Keppra to IV Vitamin K 10mg IV and Kcentra given to reverse elevated INR secondary to warfarin use (2) Acute blood loss anemia: Plan: Transfuse 2 units and repeat hemoglobin. Repeat H&H q.4 hourly once packed red blood cells transfused with ongoing transfusion threshold less than 7. (3) H/O mitral valve replacement with mechanical valve: Plan: Reason for warfarin use with history of stroke Consideration will have to be restarting on IV heparin as soon as bleeding is controlled following endoscopic evaluation (4) Hx of aortic valve replacement, mechanical: (5) Pain and swelling of left ankle: Plan: XR ankle from 07/06 reviewed Follow up with orthopedics - consider inpatient depending on length of stay (6) Metabolic acidosis: Plan: In setting of CKD may need sodium bicarb oral chronically but at the current time we will give 100 mEq IV sodium bicarb which should also help with reducing potassium levels Monitor VBG (7) Hyperkalemia: Plan: Calcium gluconate given which should also help with GI bleed, Insulin dextrose Repeat BMP with next H&H Plan VTE prophylaxis - SCDs Diet - n.p.o. Disposition - admit to PCU Admission and Anticipated Discharge Date Admission Date: July 26, 2024 History of Present Illness Chief Complaint: Coffee ground emesis Primary Care Provider: Abigail Saldana MD Magda Muñoz is a 74 year old female who presents to the ER with coffee- ground emesis for the last 48 hours with melena. No abdominal pain. She sprained her ankle on July 06 with no fracture seen on imaging. Since this time she has been taking ibuprofen every 6 hours. She is also on warfarin for mechanical heart valve. No changes to her warfarin dose however INR 6.7 on admission. Her hemoglobin is 5.6 from baseline 9.8, 3 weeks prior. No weight loss. No fever or chills. She reports eating a hoagie yesterday and has been vomiting up onions. This morning after vomiting every hour during the night her tried to get her up in the bathroom and she was so weak she was unable to get onto the feet therefore EMS was called. She has no history of liver cirrhosis. Patient had episode of coffee ground emesis while talking to her at bedside but this is her only episode while in the ER. Allergies Allergy/AdvReac Type Severity Reaction Status Date / Time doxycycline Allergy Unknown CAN'T Verified 07/26/24 12:18 REMEMBER sulfamethoxazole Allergy Unknown CAN'T Verified 07/26/24 12:18 REMEMBER trimethoprim Allergy Unknown CAN'T Verified 07/26/24 12:18 REMEMBER Home Medications Medication Instructions Recorded Confirmed Type atorvastatin 40 mg tablet 40 mg PO HS 07/19/23 07/26/24 History metoprolol succinate 25 mg 25 mg PO BID 08/19/23 07/26/24 History tablet,extended release 24 hr levothyroxine 50 mcg tablet 50 mcg PO QAM #90 tabs 01/06/24 07/26/24 Rx calcium 600 mg (as 1 tab PO DAILY #90 tabs 03/10/24 07/26/24 Rx carbonate)-vitamin D3 10 mcg (400 unit) tablet citalopram 20 mg tablet 20 mg PO QAM #90 tabs 03/10/24 07/26/24 Rx pramipexole 0.125 mg tablet 0.125 mg PO QPM #90 tabs 04/21/24 07/26/24 Rx pregabalin 100 mg capsule (Lyrica) 100 mg PO PM #90 caps 04/21/24 07/26/24 Rx folic acid 1 mg tablet 0 mg PO DAILY 05/13/24 07/26/24 History amlodipine 2.5 mg tablet 2.5 mg PO QAM 05/14/24 07/26/24 History aspirin 81 mg tablet,delayed 81 mg PO DAILY 06/18/24 07/26/24 History release oxycodone 5 mg tablet 5 mg PO Q6H PRN pain #8 tabs 07/11/24 07/26/24 Rx oxycodone-acetaminophen 5 mg-325 1 tab PO Q8H PRN pain #10 tabs 07/14/24 07/26/24 Rx mg tablet allopurinol 100 mg tablet 100 mg PO DAILY #90 tabs 07/22/24 07/26/24 Rx isosorbide mononitrate 30 mg 30 mg PO QAM #90 tabs 07/22/24 07/26/24 Rx tablet,extended release 24 hr levetiracetam 500 mg tablet 500 mg PO BID #60 tabs 07/22/24 07/26/24 Rx (Keppra) lisinopril 5 mg tablet 5 mg PO HS #90 tabs 07/22/24 07/26/24 Rx warfarin 2 mg tablet See Rx Instructions PO UD #78 tabs 07/24/24 07/26/24 Rx cyanocobalamin (vitamin B-12) 1,000 mcg IM MONTHLY PRN B12 07/26/24 07/26/24 History 1,000 mcg/mL injection solution Deficiency Past Med/Surg History Problem List (Updated 07/26/24 @ 23:35 by Cristhian Edgar MD) Hyperkalemia Metabolic acidosis Atrial fibrillation (Acute) Acute hyperkalemia (Acute) Elevated INR (Acute) Anemia requiring transfusions (Acute) Acute upper GI hemorrhage (Acute) Acute blood loss anemia Acute upper GI bleeding Severe sprain of left ankle Pain and swelling of left ankle Grade 3 ankle sprain Stenosis of left internal carotid artery TIA (transient ischemic attack) Vitamin B12 deficiency 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 Carotid artery plaque Seizure-like activity Stroke-like episode Acquired stuttering Hypomagnesemia Stroke-like symptoms (Acute) Expressive aphasia (Acute) Hematuria Proteinuria Osteoporosis Chronic anemia Vitamin D deficiency Warfarin anticoagulation (Acute) CKD (chronic kidney disease) stage 4, GFR 15-29 ml/min Hx of aortic valve replacement, mechanical H/O mitral valve replacement with mechanical valve Effusion of knee joint right (Acute) Ambulatory dysfunction Dizziness Paroxysmal SVT (supraventricular tachycardia) (Chronic) Chronic constipation (Chronic) RLS (restless legs syndrome) (Chronic) Chronic pain (Chronic) Hypertension (Chronic) BIRDIE (obstructive sleep apnea) (Chronic) Dyslipidemia (Chronic) Hypothyroidism (Chronic) Medical History Acute kidney injury Open fracture of left distal radius (08/19/23) from a fall-saw orthopedics in the ED and was admitted to [place] per ortho note History of CVA (cerebrovascular accident) History of transfusion of packed RBC 08/2023 1 unit CKD (chronic kidney disease), stage III Surgical History S/P ORIF (open reduction internal fixation) fracture Lt distal radius 08/23/23 Dr. Oscar Jones S/P total abdominal hysterectomy H/O neck surgery History of cholecystectomy H/O oophorectomy S/P repair of paraesophageal hernia History of total right hip replacement S/P lumbar fusion H/O hemorrhoidectomy Family History Father Heart disease Mother Stroke Social History Smoking Status: Never smoker Second Hand Exposure: No; Do You Dip or Chew Tobacco: No; Hx Alcohol Use: No Hx Substance Use: No Preferred Language: Macanese Communication Ability: Effective Visual Impairment: No Limitations Hearing Ability: Hard of Hearing Occupational Therapist Aide Required: No Beliefs That Will Affect Care: None marital status: Current Living Situation: Spouse Current Living Situation Comment: [place] current occupational status: retired How many Children do You have: 2 Feels Safe at Home: Yes Safety Concerns: Feels Safe At This Time Childhood Exposure to Second-Hand Smoke: No Diet: regular Diet Comment: regular caffeine: No Dental Care, Regularly: No Physical Activity Frequency: Does not Exercise Seatbelt Use: always Sunscreen Use: No Assistive Devices: Cane Review of Systems Review of Systems: All systems reviewed & are unremarkable except as noted in HPI & below Physical Exam Constitutional: WD/WN, vitals as above ENMT: external ear and nose normal, oropharynx normal Respiratory: normal respiratory effort, lungs clear to auscultation Cardiovascular: Heart Sounds: + click (mechanical); no murmur Extremities: normal capillary refill; no calf tenderness and no pedal edema Gastrointestinal (Abdomen): normal bowel sounds, soft, nontender, no hepatosplenomegaly Musculoskeletal: Left ankle ecchymosis and swelling especially of lateral aspect Neurologic: moves all extremities, awake and + confused Results & Data Results & Data Vital Signs (Past 12 Hours) Vital Signs Temp Pulse Pulse Resp BP BP Pulse Ox 07/26/24 10:23 88 16 100/46 L 96 07/26/24 10:10 87 20 97/53 L 100 07/26/24 10:02 88 12 97/46 L 97 07/26/24 09:53 90 24 92/51 L 100 07/26/24 09:44 90 20 98/48 L 100 02/09/25 09:33 92 H 16 96/47 L 100 07/26/24 09:31 93 H 07/26/24 09:12 100 07/26/24 09:11 36.8 C 92 H 20 117/49 L 100 O2 Del Method 07/26/24 10:23 Room Air 07/26/24 10:10 Room Air 07/26/24 10:02 Room Air 07/26/24 09:53 Room Air 07/26/24 09:44 Room Air 07/26/24 09:33 Room Air 07/26/24 09:31 07/26/24 09:12 Room Air 07/26/24 09:11 Room Air Laboratory Results Abnormal lab results 07/26/24 07/26/24 Range/Units 09:24 09:31 WBC 13.84 H (4.8-10.8) K/ul RBC 1.80 L (4.20-5.40) M/uL Hgb 5.6 L* (12.0-16.0) g/dl POC Hgb 6.1 L* (12.0-16.0) g/dl Hct 17.5 L* (37.0-47.0) % POC Hct 18 L* (37-47) % RDW Std Deviation 56.5 H (36.4-46.3) fL RDW Coeff of Gisele 16.0 H (11.5-14.5) % Neut # (Auto) 12.07 H (1.40-6.50) K/uL Lymph # (Auto) 0.82 L (1.20-3.40) K/uL Brooks # (Auto) 0.71 H (0.11-0.59) K/uL Immature Gran # (Auto) 0.22 H (0.01-0.20) K/uL PT 61.3 H (9.0-12.0) Seconds INR 6.7 H* (0.9-1.1) APTT 74 H (21-31) Seconds POC Sodium 145 H (135-144) mmol/L POC Potassium 5.5 H (3.3-5.0) mmol/L Potassium 5.4 H (3.5-5.1) mmol/L POC Chloride 119 H (101-112) mmol/L Chloride 118 H (98-107) mmol/L Carbon Dioxide 18 L (21-32) mmol/L POC Total CO2 15 L (24-31) mmol/L POC BUN 89 H (7-18) mg/dl BUN 92 H (6-23) mg/dl Creatinine 2.66 H (0.6-1.2) mg/dl POC Creatinine 2.9 H (0.6-1.3) mg/dl BUN/Creatinine Ratio 34.6 H (10-20) Glucose 153 H (70-99(Fasting)) mg/dl POC Glucose (other) 143 H (70-99) mg/dl AST 10 L (13-39) U/L ALT 5 L (7-52) U/L Total Protein 5.8 L (6.0-8.3) gm/dl Albumin 3.1 L (3.4-5.0) gm/dl Crossmatch See Detail Diagnostic Findings XR chest 1V portable HISTORY: 74 years-old Female GIB, aspiration acute chest pain with GI bleed COMPARISON: 05/14/2024 TECHNIQUE: AP view of the chest FINDINGS: Cardiac silhouette is enlarged. Median sternotomy with cardiac valvular p rosthesis. No pneumothorax, pleural effusion or pulmonary edema. Mild linear bibasilar subsegmental atelectasis/scarring. Postoperative changes of the cervical spine. IMPRESSION: Cardiomegaly without acute process. Medications Administered ER Medications Given: Pantoprazole 80mg bolus then 40mg @ 8mg/hr Famotidine 20 mg IV Vitamin K 10 mg IV Kcentra 2500 units 2 units of packed red blood cells ordered but not yet given ECG Rhythm: other (Accelerated junctional rhythm) Findings: + nonspecific-ST abn Comparison ECG Date: from (May 14, 2024) Change: the following changes noted (Junction no rhythm is replaced sinus rhythm) Code Status & VTE Plan Code Status All treatment outside of cardiac arrest VTE Prophylaxis Plan VTE Prophylaxis will be ordered: No PG Care Time/CCT Total # of Minutes Spent Total Time Spent with Patient: Total time spent is greater than 50% in coordination of care (as documented) at patient's floor/unit and/or counseling patient: Coding Level of Care Code 34058 INT INP/OBS CARE 3/75MIN Diagnoses Acute upper GI bleeding K92.2 Acute blood loss anemia D62 H/O mitral valve replacement with mechanical valve Z95.2 Hx of aortic valve replacement, mechanical Z95.2 Pain and swelling of left ankle M25.572; M25.472 Metabolic acidosis E87.20 Hyperkalemia E87.5
[2024-07-26] MEDS: SODIUM BICARB 8.4% INJ 50 MEQ/50 ML SYR IV STA ×2 (11:20→13:52)
[2024-07-26] MEDS: PROTHROMBIN COMP CONC- KCENTRA 2,500 UNITS in SYRINGE 0 ML IV ONE (11:22)
[2024-07-26 11:28] LABS: Base Excess VBG -10.3 mEq/L; HCO3 VBG 17 mmol/L; Oxygen Saturation VBG < 60.0 %; PCO2 VBG 43 mmHg (38-50); PO2 VBG 32 mmHg
[2024-07-26] MEDS: CALCIUM GLUCONATE 1,000 MG/60 ML BAG IV STA (13:45)
--- NOTE | 2024-07-26 14:00 | Gastrointestinal Consultation ---
Date of Consultation July 26, 2024 Assessment & Plan (1) Acute upper GI bleeding: (2) Acute blood loss anemia: Patient received Vitamin K in the ER due to supratherapeutic INR Continue Protonix gtt Currently receiving her 2nd Transfusion of PRBC's Reglan 10 mg IV now Emergent EGD now due to continue GI bleeding Further recommendations to follow. History of Present Illness Reason for Consultation: Acute Blood loss anemia, Melena, Supratherapeutic INR Attending Physician: Cristhian Edgar MD History of Present Illness Magda Muñoz is a pleasant 74 yo CF who presented to the ER early this AM with complaints of dark stools and coffee ground emesis for the past 2-3 days. Upon arrival to the ER she was noted to have a Hgb of 5.6 which had decreased from her most recent Hgb of 9.8 on 07/06/2024. Her INR was noted to be 6.7 which she takes for a mechanical heart valve. Her accompanies her to the hospital and states that she has been taking Ibuprofen around the clock due to an ankle injury. She did have multiple episodes of coffee ground emesis since her arrival. At the time I saw her, she was complaining of weakness and continued coffee ground emesis. She denies any abdominal pain, fevers, chills, or nausea. She was started on a protonix gtt following an 80 mg IV bolus and was admitted to PCU. Allergies Allergy/AdvReac Type Severity Reaction Status Date / Time doxycycline Allergy Unknown CAN'T Verified 07/26/24 12:18 REMEMBER sulfamethoxazole Allergy Unknown CAN'T Verified 07/26/24 12:18 REMEMBER trimethoprim Allergy Unknown CAN'T Verified 07/26/24 12:18 REMEMBER Home Medications Medication Instructions Recorded Confirmed Type atorvastatin 40 mg tablet 40 mg PO HS 07/19/23 07/26/24 History metoprolol succinate 25 mg 25 mg PO BID 08/19/23 07/26/24 History tablet,extended release 24 hr levothyroxine 50 mcg tablet 50 mcg PO QAM #90 tabs 01/06/24 07/26/24 Rx calcium 600 mg (as 1 tab PO DAILY #90 tabs 03/10/24 07/26/24 Rx carbonate)-vitamin D3 10 mcg (400 unit) tablet citalopram 20 mg tablet 20 mg PO QAM #90 tabs 03/10/24 07/26/24 Rx pramipexole 0.125 mg tablet 0.125 mg PO QPM #90 tabs 04/21/24 07/26/24 Rx pregabalin 100 mg capsule (Lyrica) 100 mg PO PM #90 caps 04/21/24 07/26/24 Rx folic acid 1 mg tablet 0 mg PO DAILY 05/13/24 07/26/24 History amlodipine 2.5 mg tablet 2.5 mg PO QAM 05/14/24 07/26/24 History aspirin 81 mg tablet,delayed 81 mg PO DAILY 06/18/24 07/26/24 History release oxycodone 5 mg tablet 5 mg PO Q6H PRN pain #8 tabs 07/11/24 07/26/24 Rx oxycodone-acetaminophen 5 mg-325 1 tab PO Q8H PRN pain #10 tabs 07/14/24 07/26/24 Rx mg tablet allopurinol 100 mg tablet 100 mg PO DAILY #90 tabs 07/22/24 07/26/24 Rx isosorbide mononitrate 30 mg 30 mg PO QAM #90 tabs 07/22/24 07/26/24 Rx tablet,extended release 24 hr levetiracetam 500 mg tablet 500 mg PO BID #60 tabs 07/22/24 07/26/24 Rx (Keppra) lisinopril 5 mg tablet 5 mg PO HS #90 tabs 07/22/24 07/26/24 Rx warfarin 2 mg tablet See Rx Instructions PO UD #78 tabs 07/24/24 07/26/24 Rx cyanocobalamin (vitamin B-12) 1,000 mcg IM MONTHLY PRN B12 07/26/24 07/26/24 History 1,000 mcg/mL injection solution Deficiency Patient History Medical History Acute kidney injury Open fracture of left distal radius (08/19/23) from a fall-saw orthopedics in the ED and was admitted to [place] per ortho note History of CVA (cerebrovascular accident) History of transfusion of packed RBC 08/2023 1 unit CKD (chronic kidney disease), stage III Surgical History S/P ORIF (open reduction internal fixation) fracture Lt distal radius 08/23/23 Dr. Oscar Jones S/P total abdominal hysterectomy H/O neck surgery History of cholecystectomy H/O oophorectomy S/P repair of paraesophageal hernia History of total right hip replacement S/P lumbar fusion H/O hemorrhoidectomy Family History Father Heart disease Mother Stroke Social History Smoking Status: Unknown if ever smoked Second Hand Exposure: No; Do You Dip or Chew Tobacco: No; Hx Alcohol Use: No Hx Substance Use: No Preferred Language: Bengali Communication Ability: Effective Visual Impairment: No Limitations Hearing Ability: Hard of Hearing Agronomy Internship Required: No Beliefs That Will Affect Care: None marital status: Current Living Situation: Spouse and Family Current Living Situation Comment: lives with and son current occupational status: retired How many Children do You have: 2 Feels Safe at Home: Yes Childhood Exposure to Second-Hand Smoke: No Diet: regular Diet Comment: regular caffeine: No Dental Care, Regularly: No Physical Activity Frequency: Does not Exercise Seatbelt Use: always Sunscreen Use: No Assistive Devices: Cane and Walker Review of Systems Review of Systems: All systems reviewed & are unremarkable except as noted in HPI & below Physical Exam Constitutional: WD/WN, vitals as above Eyes: + anicteric sclerae Neck: normal visual inspection Respiratory: normal respiratory effort, lungs clear to auscultation Cardiovascular: RRR, no murmur, no edema Gastrointestinal (Abdomen): normal bowel sounds, soft, nontender, no hepatosplenomegaly Skin: + pallor Psychiatric: A+Ox3, euthymic affect Results & Data Vital Signs (Past 12 Hours) Vital Signs Temp Pulse Pulse Resp BP BP Pulse Ox 07/26/24 13:35 36.6 C 87 16 107/56 L 97 07/26/24 12:35 36.8 C 95 H 14 135/69 100 07/26/24 12:05 36.7 C 94 H 16 104/83 96 07/26/24 12:00 97 H 20 104/83 100 07/26/24 11:50 36.8 C 92 H 18 107/53 L 93 07/26/24 11:34 36.7 C 07/26/24 11:33 94 H 18 123/54 L 99 07/26/24 10:23 88 16 100/46 L 96 07/26/24 10:10 87 20 97/53 L 100 07/26/24 10:02 88 12 97/46 L 97 07/26/24 09:53 90 24 92/51 L 100 07/26/24 09:44 90 20 98/48 L 100 07/26/24 09:33 92 H 16 96/47 L 100 07/26/24 09:31 93 H 07/26/24 09:12 100 07/26/24 09:11 36.8 C 92 H 20 117/49 L 100 O2 Del Method 07/26/24 13:35 07/26/24 12:35 07/26/24 12:05 07/26/24 12:00 Room Air 07/26/24 11:50 07/26/24 11:34 07/26/24 11:33 07/26/24 10:23 Room Air 07/26/24 10:10 Room Air 07/26/24 10:02 Room Air 07/26/24 09:53 Room Air 07/26/24 09:44 Room Air 07/26/24 09:33 Room Air 07/26/24 09:31 07/26/24 09:12 Room Air 07/26/24 09:11 Room Air PG Care Time/CCT Total # of Minutes Spent Total Time Spent with Patient: Total time spent is greater than 50% in coordination of care (as documented) at patient's floor/unit and/or counseling patient: Coding Level of Care Code 18151 INT INP/OBS CARE 3/75MIN Diagnoses Acute upper GI bleeding K92.2 Acute blood loss anemia D62
[2024-07-26] MEDS ORDERED: ONDANSETRON INJ 2 MG/ML 2 ML VIAL ONE (14:03)
[2024-07-26] MEDS ORDERED: fentaNYL citrate PF 100 MCG/2 ML VIAL ONE (14:03)
[2024-07-26] MEDS ORDERED: LIDOCAINE 2% 2 ML VIAL/AMP(20MG/ML) INFIL ONE (14:03)
[2024-07-26] MEDS ORDERED: PROPOFOL IV EMULSION 10 MG/ML 20 ML VIAL IV ONE (14:03)
[2024-07-26] MEDS ORDERED: DEXAMETHASONE SOD INJ 4 MG/ML VIAL ONE (14:03)
[2024-07-26] MEDS ORDERED: SUCCINYLCHOLINE CHLORIDE 20 MG/ML 10 ML VIAL IV ONE (14:03)
[2024-07-26] MEDS: DEXTROSE 50% 50 ML SYRINGE IV STA (14:07)
[2024-07-26] MEDS: INSULIN HUMAN REGULAR PER UNIT 10 UNITS in SYRINGE 9.9 ML IV ONE (14:08)
--- NOTE | 2024-07-26 14:20 | Anesthesiology Consultation ---
Date of Service July 26, 2024 Assessment & Plan Chart Review Chart Review: Acceptable Risk for Surgery and Patient NOT seen in Pre Admission Testing History Surgery Operation Date: 07/26/24 14:30 Proposed Procedures p Esophagogastroduodenoscopy Dr Ohara - Antonio Culver Case, DO Height/Weight Weight: 47 kg Allergies Allergy/AdvReac Type Severity Reaction Status Date / Time doxycycline Allergy Unknown CAN'T Verified 07/26/24 12:18 REMEMBER sulfamethoxazole Allergy Unknown CAN'T Verified 07/26/24 12:18 REMEMBER trimethoprim Allergy Unknown CAN'T Verified 07/26/24 12:18 REMEMBER Medications Home Medications Medication Instructions Recorded Confirmed Last Taken atorvastatin 40 mg tablet 40 mg PO HS 07/19/23 07/26/24 05/13/24 metoprolol succinate 25 mg 25 mg PO BID 08/19/23 07/26/24 05/14/24 tablet,extended release 24 hr levothyroxine 50 mcg tablet 50 mcg PO QAM #90 tabs 01/06/24 07/26/24 05/14/24 calcium 600 mg (as 1 tab PO DAILY #90 tabs 03/10/24 07/26/24 05/14/24 carbonate)-vitamin D3 10 mcg (400 unit) tablet citalopram 20 mg tablet 20 mg PO QAM #90 tabs 03/10/24 07/26/24 05/14/24 pramipexole 0.125 mg tablet 0.125 mg PO QPM #90 tabs 04/21/24 07/26/24 05/13/24 pregabalin 100 mg capsule (Lyrica) 100 mg PO PM #90 caps 04/21/24 07/26/24 05/13/24 folic acid 1 mg tablet 0 mg PO DAILY 05/13/24 07/26/24 Unknown amlodipine 2.5 mg tablet 2.5 mg PO QAM 05/14/24 07/26/24 Unknown aspirin 81 mg tablet,delayed 81 mg PO DAILY 06/18/24 07/26/24 Unknown release oxycodone 5 mg tablet 5 mg PO Q6H PRN pain #8 tabs 07/11/24 07/26/24 Unknown oxycodone-acetaminophen 5 mg-325 1 tab PO Q8H PRN pain #10 tabs 07/14/24 07/26/24 Unknown mg tablet allopurinol 100 mg tablet 100 mg PO DAILY #90 tabs 07/22/24 07/26/24 Unknown isosorbide mononitrate 30 mg 30 mg PO QAM #90 tabs 07/22/24 07/26/24 Unknown tablet,extended release 24 hr levetiracetam 500 mg tablet 500 mg PO BID #60 tabs 07/22/24 07/26/24 Unknown (Keppra) lisinopril 5 mg tablet 5 mg PO HS #90 tabs 07/22/24 07/26/24 Unknown warfarin 2 mg tablet See Rx Instructions PO UD #78 tabs 07/24/24 07/26/24 Unknown cyanocobalamin (vitamin B-12) 1,000 mcg IM MONTHLY PRN B12 07/26/24 07/26/24 Unknown 1,000 mcg/mL injection solution Deficiency Active Medications Generic Name Dose Route Start Last Admin Trade Name Freq PRN Reason Stop Dose Admin Pantoprazole Sodium 40 mg/ 100 mls @ 20 mls/hr 07/26/24 09:45 07/26/24 10:01 Dextrose IV 08/25/24 09:44 8 mg/hr Q5H OLGA 20 mls/hr Administration 8 MG/HR Past Medical History Medical History Acute kidney injury Open fracture of left distal radius (08/19/23) from a fall-saw orthopedics in the ED and was admitted to [place] per ortho note History of CVA (cerebrovascular accident) History of transfusion of packed RBC 08/2023 1 unit CKD (chronic kidney disease), stage III Past Family History Family History Father Heart disease Mother Stroke Past Surgical History Surgical History S/P ORIF (open reduction internal fixation) fracture Lt distal radius 08/23/23 Dr. Oscar Jones S/P total abdominal hysterectomy H/O neck surgery History of cholecystectomy H/O oophorectomy S/P repair of paraesophageal hernia History of total right hip replacement S/P lumbar fusion H/O hemorrhoidectomy Social History Smoking Status: Unknown if ever smoked Do You Dip or Chew Tobacco: No Hx Alcohol Use: No Hx Substance Use: No substance use type: does not use Physical Exam Vital Signs Last Vital Signs Temp 36.9 C 07/26/24 14:16 Pulse 107 H 07/26/24 14:16 Resp 18 07/26/24 14:16 BP 105/53 L 07/26/24 14:16 Pulse Ox 98 07/26/24 14:16 O2 Del Method Room Air 07/26/24 12:00 Testing Laboratory Results 07/26/24 09:24 07/26/24 09:24 PT 61.3 Seconds (9.0-12.0) H 07/26/24 09:24 INR 6.7 (0.9-1.1) H* 07/26/24 09:24 APTT 74 Seconds (21-31) H 07/26/24 09:24 Blood Type O Positive 07/26/24 09:24 Antibody Screen NEGATIVE 07/26/24 09:24 07/26/24 09:31 POC Glucose (other) 143 H
[2024-07-26] MEDS ORDERED: ePHEDrine sulfate 50 MG/ML AMP ONE (15:01)
--- NOTE | 2024-07-26 15:31 | GI REPORT ---
[facility] Patient: CHEYANNE JETER : 1950 Sex at : Female Age: 74 Years Procedure: Upper GI endoscopy Date: 07/26/2024 Attending Physician: Antonio Ohara DO Referring MD: Referred Self; Cristhian Edgar MD Indications: - Melena - Acute post hemorrhagic anemia - Coffee-ground emesis Medications: - Monitored Anesthesia Care - General Anesthesia Complications: - No immediate complications. Estimated Blood Loss: - Estimated blood loss: None. Procedure: - Prior to the procedure, a History and Physical was performed, and patient medications and allergies were reviewed. The patient's tolerance of previous anesthesia was also reviewed. The risks and benefits of the procedure and the sedation options and risks were discussed with the patient. All questions were answered, and informed consent was obtained. Prior Anticoagulants: The patient has taken no anticoagulant or antiplatelet agents. ASA Grade Assessment: 3E - A patient with severe systemic disease, undergoing an emergency procedure. After reviewing the risks and benefits, the patient was deemed in satisfactory condition to undergo the procedure. - The egd scope was introduced through the mouth and advanced to the second part of the duodenum. - The upper GI endoscopy was accomplished without difficulty. - The patient tolerated the procedure well. Findings: - The examined esophagus was normal. - Hematin (altered blood/lyqchp-gbvuaq-epfi material) was found in the gastric body. - The examined duodenum was normal. Impression: - Normal esophagus. - Hematin (altered blood/ycsdgq-mvbgqa-mqyb material) in the gastric body. - Normal examined duodenum. - No specimens collected. Recommendation: - Return patient to hospital lan for ongoing care. - Advance diet as tolerated. - Continue present medications. - Return to primary care physician as previously scheduled. - Patient has a contact number available for emergencies. The signs and symptoms of potential delayed complications were discussed with the patient. Return to normal activities tomorrow. Written discharge instructions were provided to the patient. - Resume Coumadin (warfarin) at prior dose in 3 days. Refer to managing physician for further adjustment of therapy. Procedure Code(s): - 15062, Esophagogastroduodenoscopy, flexible, transoral; diagnostic, including collection of specimen(s) by brushing or washing, when performed (separate procedure) Diagnosis Code(s): - K92.1, Melena (includes Hematochezia) - D62, Acute posthemorrhagic anemia - K92.0, Hematemesis - K92.2, Gastrointestinal hemorrhage, unspecified CPT(R) - 202 copyright [employer]. All Rights Reserved. The CPT codes, CCI edits and ICD codes generated are intended as suggestions and were generated based on input data. These codes are preliminary and upon roll plugger machine operator review may be revised to meet current compliance and payer requirements. The provider is responsible for the final determination of appropriate codes, and modifiers. Dr. Antonio Ohara, DO This document has been electronically signed. Note Initiated:07/26/2024 Note Completed:07/26/2024 3:30 PM \\[email or web address]\[email or web address]\[id number]
[2024-07-26] MEDS: METOCLOPRAMIDE HCL INJ 5 MG/ML 2 ML VIAL ONE (16:55)
[2024-07-26] MEDS: METOCLOPRAMIDE HCL INJ 5 MG/ML 2 ML VIAL IV STA (17:01)
[2024-07-26 17:25] LABS: Base Excess VBG -3.1 mEq/L; HCO3 VBG 21 mmol/L; Oxygen Saturation VBG 74.3 %; PCO2 VBG 35 mmHg (38-50); PO2 VBG 40 mmHg; pH VBG 7.39 (7.36-7.41)
[2024-07-26 17:36] LABS: Hematocrit (blood only) 27.9 % (37.0-47.0); Hemoglobin 9.7 g/dl (12.0-16.0)
[2024-07-26 17:45] LABS: BUN Creatinine Ratio 38.1 (10-20); Calcium 8.6 mg/dl (8.6-10.3); Creatinine Clr Calc Pharmacy 15.8 ml/min; Potassium 4.3 mmol/L (3.5-5.1)
[2024-07-26 18:54] LABS: Prothrombin Time 11.2 Seconds (9.0-12.0)
--- NOTE | 2024-07-26 19:15 | Anesthesiology Progress Note ---
Date of Service July 26, 2024 Anesthesia Post Procedure Vital Signs Vital Signs: Temp Pulse Pulse Pulse Resp BP BP 07/26/24 16:40 37.2 C 85 16 123/71 07/26/24 16:12 36.8 C 89 18 120/55 L 07/26/24 16:00 88 14 107/56 L 07/26/24 15:40 36.7 C 90 16 119/48 L 07/26/24 15:30 90 16 109/54 L 07/26/24 15:20 95 H 18 117/65 07/26/24 15:11 36.2 C L 108 H 16 92/54 L 07/26/24 14:16 36.9 C 107 H 18 105/53 L 07/26/24 13:51 36.8 C 87 16 114/58 L 07/26/24 13:35 36.6 C 87 16 107/56 L 07/26/24 13:06 88 07/26/24 12:43 92 H 07/26/24 12:35 36.8 C 95 H 14 135/69 07/26/24 12:05 36.7 C 94 H 16 104/83 07/26/24 12:00 97 H 20 104/83 07/26/24 11:50 36.8 C 92 H 18 107/53 L 07/26/24 11:34 36.7 C 07/26/24 11:33 94 H 18 123/54 L 07/26/24 10:23 88 16 100/46 L 07/26/24 10:10 87 20 97/53 L 07/26/24 10:02 88 12 97/46 L 07/26/24 09:53 90 24 92/51 L 07/26/24 09:44 90 20 98/48 L 07/26/24 09:33 92 H 16 96/47 L 07/26/24 09:31 93 H 07/26/24 09:12 07/26/24 09:11 36.8 C 92 H 20 117/49 L Pulse Ox O2 Del Method O2 Flow Rate 07/26/24 16:40 99 Room Air 07/26/24 16:12 98 Room Air 07/26/24 16:00 97 Room Air 07/26/24 15:40 98 Room Air 07/26/24 15:30 99 Oxymask 2 07/26/24 15:20 100 Oxymask 4 07/26/24 15:11 100 Oxymask 6 07/26/24 14:16 98 07/26/24 13:51 99 07/26/24 13:35 97 07/26/24 13:06 07/26/24 12:43 07/26/24 12:35 100 07/26/24 12:05 96 07/26/24 12:00 100 Room Air 07/26/24 11:50 93 07/26/24 11:34 07/26/24 11:33 99 07/26/24 10:23 96 Room Air 07/26/24 10:10 100 Room Air 07/26/24 10:02 97 Room Air 07/26/24 09:53 100 Room Air 07/26/24 09:44 100 Room Air 07/26/24 09:33 100 Room Air 07/26/24 09:31 07/26/24 09:12 100 Room Air 07/26/24 09:11 100 Room Air Transfer of Care Handoff Completed per policy Notes Mental Status: alert / awake / arousable and participated in evaluation Patient Amnestic to Procedure: Yes Nausea / Vomiting: adequately controlled Pain: adequately controlled Airway Patency, RR, SpO2: stable & adequate BP & HR: stable & adequate Hydration State: stable & adequate Anesthetic Complications: no major complications apparent and Pt Satisfied with anesthetic care
[2024-07-26] MEDS: PREGABALIN 100 MG CAP PO SCH (20:11)
[2024-07-26] MEDS: METOPROLOL SUCC 25MG EXT REL TAB PO SCH (20:11)
[2024-07-26] MEDS: levETIRAcetam 500 MG TAB PO SCH (20:11)
[2024-07-26] MEDS: ATORVASTATIN 40 MG TAB PO SCH (20:11)
[2024-07-26] MEDS: PRAMIPEXOLE DIHYDROCHLO 0.25 MG TAB PO SCH (20:11)
[2024-07-26 21:27] LABS: BUN Creatinine Ratio 35.4 (10-20); Calcium 8.3 mg/dl (8.6-10.3); Creatinine Clr Calc Pharmacy 16.1 ml/min; Potassium 3.8 mmol/L (3.5-5.1)
[2024-07-26 21:30] LABS: Hematocrit (blood only) 24.6 % (37.0-47.0); Hemoglobin 8.6 g/dl (12.0-16.0)
[2024-07-26 21:36] LABS: Prothrombin Time 10.9 Seconds (9.0-12.0)
--- NOTE | 2024-07-26 22:55 | Communication Note ---
Date of Service: July 26, 2024 Patient converted to a. fib during EGD. Added magnesium to labs. TTE ordered. Consult cardiology Discussed results of EGD with Dr Ohara and no active bleeding found. Ok to start on clear liquid diet. Plan to place on IV heparin low dose once hemoglobin stable and INR < 2 due to presence of mechanical heart valve.
[2024-07-26 23:00] LABS: Magnesium 1.3 mg/dl (1.7-2.4)
[2024-07-26] MEDS: MAGNESIUM SULFATE / D5W 1 GM/100 ML BAG IV SCH (23:56)
[2024-07-27 01:15] LABS: Base Excess VBG -4.8 mEq/L; HCO3 VBG 21 mmol/L; Oxygen Saturation VBG < 60.0 %; PCO2 VBG 41 mmHg (38-50); PO2 VBG 31 mmHg; pH VBG 7.32 (7.36-7.41)
[2024-07-27 01:21] LABS: Hematocrit (blood only) 23.8 % (37.0-47.0); Hemoglobin 8.2 g/dl (12.0-16.0)
[2024-07-27 01:37] LABS: BUN Creatinine Ratio 34.8 (10-20); Calcium 8.4 mg/dl (8.6-10.3); Potassium 4.1 mmol/L (3.5-5.1)
[2024-07-27 01:47] LABS: Prothrombin Time 10.4 Seconds (9.0-12.0)
[2024-07-27] MEDS: LEVOTHYROXINE SODIUM 50 MCG TABLET PO SCH (05:44)
[2024-07-27 07:08] LABS: Hematocrit (blood only) 23.7 % (37.0-47.0); Hemoglobin 8.1 g/dl (12.0-16.0); Mean Corpuscular Hemoglobin 30.3 pg (25.0-34.0); Mean Corpuscular Hgb Conc 34.2 g/dL (32.0-36.0); Mean Corpuscular Volume 88.8 fL (80.0-100.0); Mean Platelet Volume 11.3 fL (9.4-12.4); Nucleated RBC # (auto) 0.02 K/uL (0.00-0.12); Nucleated RBC % (auto) 0.1 %; Platelet Count 170 K/uL (130-400); RDW Coefficient of Variation 16.2 % (11.5-14.5); RDW Standard Deviation 51.1 fL (36.4-46.3); Red Blood Count 2.67 M/uL (4.20-5.40); White Blood Count 18.64 K/ul (4.8-10.8)
[2024-07-27 07:27] LABS: Alanine Aminotransferase 5 U/L (7-52); Albumin Globulin Ratio 1.2 (0.9-2); Albumin Level 3.1 gm/dl (3.4-5.0); Alkaline Phosphatase 61 U/L (34-104); Anion Gap 6 (3-11); BUN Creatinine Ratio 31.3 (10-20); Bilirubin,Total 1.1 mg/dl (0.2-1.0); Blood Urea Nitrogen 70 mg/dl (6-23); Calcium 8.8 mg/dl (8.6-10.3); Carbon Dioxide 21 mmol/L (21-32); Chloride 112 mmol/L (98-107); Creatinine Clr Calc Pharmacy 17.4 ml/min; Globulin 2.5 gm/dl (2.5-4.0); Glucose 200 mg/dl (70-99(Fasting)); Magnesium 2.8 mg/dl (1.7-2.4); Sodium 139 mmol/L (136-145); Total Protein 5.6 gm/dl (6.0-8.3)
[2024-07-27 07:34] LABS: Basophils # (auto) 0.02 K/uL (0.00-0.20); Basophils % (auto) 0.1 %; Immature Granulocytes # (auto) 0.26 K/uL (0.01-0.20); Immature Granulocytes % (auto) 1.4 %; Lymphocytes % (auto) 3.8 %; Monocytes # (auto) 0.68 K/uL (0.11-0.59); Monocytes % (auto) 3.6 %; Neutrophils # (auto) 16.98 K/uL (1.40-6.50); Neutrophils % (auto) 91.1 %; Ovalocytes 1+
[2024-07-27 07:37] LABS: INR 0.9 (0.9-1.1)
[2024-07-27 07:41] LABS: Thyroid Stimulating Hormone 1.068 uIu/ml (0.300-4.500)
--- NOTE | 2024-07-27 08:24 | Electrocardiogram Report ---
Test Reason : Blood Pressure : */* mmHG Vent. Rate : 93 BPM Atrial Rate : * BPM P-R Int : * ms QRS Dur : 106 ms QT Int : 374 ms P-R-T Axes : * 2 173 degrees QTcB Int : 465 ms Normal sinus rhythm Abnormal ECG When compared with ECG of 14-May-2024 15:08, No significant change Confirmed by Arpit Higgins ([id number]) on 07/27/2024 8:23:53 AM Referred By: Confirmed By: Arpit Higgins
--- NOTE | 2024-07-27 08:25 | Electrocardiogram Report ---
Test Reason : Blood Pressure : */* mmHG Vent. Rate : 98 BPM Atrial Rate : 115 BPM P-R Int : * ms QRS Dur : 98 ms QT Int : 368 ms P-R-T Axes : * -7 156 degrees QTcB Int : 470 ms Normal sinus rhythm with frequent , and consecutive Premature atrial complexes Minimal voltage criteria for LVH, may be normal variant Abnormal ECG When compared with ECG of 26-Jul-2024 09:19, Premature atrial complexes / atrial run is now present Confirmed by Arpit Higgins ([id number]) on 07/27/2024 8:25:13 AM Referred By: REFERRED SELF Confirmed By: Arpit Higgins
[2024-07-27] MEDS ORDERED: Heparin IV Adult Wt-Based Low-Dose *NO* INITIAL Bolus Protocol IV STA (08:28)
--- NOTE | 2024-07-27 08:29 | Hospitalist Progress Note ---
Date of Service July 27, 2024 Assessment & Plan (1) Acute upper GI bleeding: (2) Acute blood loss anemia: (3) H/O mitral valve replacement with mechanical valve: (4) Hx of aortic valve replacement, mechanical: (5) Pain and swelling of left ankle: (6) Metabolic acidosis: (7) Hyperkalemia: Plan Magda is a 74 year old female with a PMHx of TIA, siezure like activity, hx of mechanical mitral and aortic valve, CKD, ankle sprain who presents to the ER with coffee-ground emesis for the last 48 hours with melena. Supratherapeutic INR on admission (6.7), but EGD without source of bleeding. #Acute GI bleed/ Acute blood loss anemia Suspected secondary to recent ibuprofen use with recent ankle sprain and supratherapeutic INR (6.7 on admission), was given Vitamin K and Kcentra on admission. Consult gastroenterology - s/p EGD 07/26 without active signs of bleed. Okay to advance diet as tolerated - full liquids for lunch Switched to BID protonix IV Hgb 5.6 on arrival - s/p 2u PRBCs, hgb 8.1 and stable Check fecal occult Baseline chronic anemia - check B12/folate/Fe studies. TSH WNL AM CBC Dizzy when ambulating to the bathroom today, will check orthostatics #Hx of Mitral and Atrial Valve replacement/ Hx of stroke Reason for Coumadin (goal 2.5-3.5). Follows with Coumadin clinic. INR 0.9 after reversal Start low dose IV heparin without bolus, if hgb remains stable hope to resume Coumadin tomorrow #Atrial Fibrillation Converted to afib during EGD, spontaneously returned to NSR Will be anticoagulated with artificial valves. Already on metoprolol. Echo pending Cardiology consulted #Left Ankle Sprain Follows with podiatry, Dr. Lam Partial weightbearing to left foot, frequent ice PT/OT #CKD Cr at baseline. Avoid nephrotoxins Likely contributing to her chronic anemia #Hyperkalemia Received Calcium gluconate, insulin/dextrose Now resolved, K 4.1 today. Elevated WBC (18) likely reactive to steroids AM BMP Seizures - continue [facility] - continue celexa hypothyroid - continue Synthroid, TSH WNL Dispo: continued inpatient stay DVT proh: low dose heparin drip family updated at bedside to/time Admission and Anticipated Discharge Date Admission Date: July 26, 2024 Subjective Magda seen lying in bed, present at bedside. States that at home just starting have black stools and vomit at home with abdominal pain. No vomiting now, but did have some nausea this morning. Elevated Coumadin at home - no medication changes, unsure why that happened. Tolerating clear liquid diet concern for afib during egd, converted to NSR overnight Tele - afib last night/early AM, converted to SR around 0400 Review of Systems Review of Systems: All systems reviewed & are unremarkable except as noted in Subjective Physical Exam Physical Exam: General: NAD, VS as above, lying in bed, appears well Resp: normal respiratory effort, lungs clear to auscultation CV: RRR, no murmur, Abd: normal bowel sounds, non tender, soft Extremities: Moves all extremities, no edema Neuro: A&O x3, Results & Data Results & Data Vital Signs (Past 12 Hours) Vital Signs Temp Pulse Pulse Pulse Resp BP BP 07/27/24 07:55 98.2 F 87 18 122/66 07/27/24 04:03 68 07/27/24 03:48 98.6 F 104 H 16 105/63 07/27/24 00:44 111 H 20 115/69 07/26/24 23:17 97.3 F L 113 H 16 99/60 L 07/26/24 22:03 112 H Pulse Ox O2 Del Method 07/27/24 07:55 99 Room Air 07/27/24 04:03 07/27/24 03:48 97 Room Air 07/27/24 00:44 97 Room Air 07/26/24 23:17 97 Room Air 07/26/24 22:03 Laboratory Results cbc, chemistry and INR reviewed vbg reviewed Medications Administered cxr reviewed PG Care Time/CCT Total # of Minutes Spent Total Time Spent with Patient: Total time spent is greater than 50% in coordination of care (as documented) at patient's floor/unit and/or counseling patient: Coding Level of Care Code 01493 SUB INP/OBS CARE 3/50MIN Diagnoses Acute upper GI bleeding K92.2 Acute blood loss anemia D62 H/O mitral valve replacement with mechanical valve Z95.2 Hx of aortic valve replacement, mechanical Z95.2 Pain and swelling of left ankle M25.572; M25.472 Metabolic acidosis E87.20 Hyperkalemia E87.5
[2024-07-27 09:11] LABS: Hematocrit (blood only) 24.1 % (37.0-47.0); Hemoglobin 8.1 g/dl (12.0-16.0)
[2024-07-27 09:14] LABS: Partial Thromboplastin Ratio 0.8; Partial Thromboplastin Time 22 Seconds (21-31)
[2024-07-27] MEDS: ISOSORBIDE MONO EXTENDED REL 30 MG TABCR PO SCH (09:27)
[2024-07-27] MEDS: PANTOprazole 40 MG/10 ML SYR IV SCH (09:27)
[2024-07-27] MEDS: CITALOPRAM 20 MG TAB PO SCH (09:28)
[2024-07-27] MEDS: HEPARIN 25000 UNIT/500 ML D5W 25,000 UNITS/500 ML BAG IV SCH (10:17)
[2024-07-27 10:53] LABS: Potassium 4.1 mmol/L (3.5-5.1)
[2024-07-27] MEDS: POLYETHYLENE (MIRALAX) 17 GM PACK PO SCH (11:56)
--- NOTE | 2024-07-27 12:27 | Gastroenterology Progress Note ---
Date of Service July 27, 2024 Assessment & Plan (1) Acute blood loss anemia: Plan: Suspicious for mucosal bleeding secondary to supratherapeutic INR. -Continue to monitor INR closely on discharge -Continue to monitor H/H -Can continue PPI therapy for protection while admitted, but no visible/ongoing discrete GI source of bleeding at this time Admission and Anticipated Discharge Date Admission Date: July 26, 2024 Supervising Physician Co-Signing Physician Notes Patient reviewed with JOSE Dennis. Comes in with a hemoglobin of 5.6. Upper endoscopy showed coffee-ground material throughout the stomach though no definite bleeding source. Her INR was supratherapeutic at 6.7. On review with the family her appetite has been decreased related to the foot pain. Minus use of oral narcotics. She is currently on IV heparin with transition's physician to oral Coumadin. She is potentially iron deficient I know her MCV is lower than her typical baseline. Iron studies been ordered though likely will be done on posttransfusion blood. I did speak to the lab and asked them to do it on the blood from the emergency room prior to transfusion. Await these results. Subjective Patient is a 74 yo female with supratherapeutic INR of 6.7 on admission who underwent an EGD that indicated old blood but no source--suspicious for mucosal bleeding. INR 0.9. She is on IV heparin for her mechanical valve at present. She notes constipation. No overt GI bleeding. H/H 8.1/24.1. Review of Systems Gastrointestinal: no abdominal pain and no melena Physical Exam Cardiovascular: audible click, regular rate Gastrointestinal (Abdomen): normal bowel sounds, soft, nontender, no hepatosplenomegaly Results & Data Results & Data Vital Signs (Past 12 Hours) Vital Signs Temp Pulse Pulse Pulse Resp BP BP 07/27/24 11:42 36.5 C 75 18 95/50 L 07/27/24 07:55 36.8 C 87 18 122/66 07/27/24 06:25 73 07/27/24 04:03 68 07/27/24 03:48 37.0 C 104 H 16 105/63 07/27/24 00:44 111 H 20 115/69 Pulse Ox O2 Del Method 07/27/24 11:42 95 Room Air 07/27/24 07:55 99 Room Air 07/27/24 06:25 07/27/24 04:03 07/27/24 03:48 97 Room Air 07/27/24 00:44 97 Room Air PG Care Time/CCT Total # of Minutes Spent Total Time Spent with Patient: Total time spent is greater than 50% in coordination of care (as documented) at patient's floor/unit and/or counseling patient: Coding Level of Care Code 91385 SUB INP/OBS CARE 2/35MIN Diagnoses Acute blood loss anemia D62
--- NOTE | 2024-07-27 16:05 | XCELERA ---
[id number] [id number]
[2024-07-27 18:06] LABS: Appearance Urine Clear (Clear); Bacteria Urine Automated None Seen (None Seen); Bilirubin Urine Negative (Negative); Blood Urine Negative (Negative); Cast Urine Automated 0-2 /lpf (0-2); Color Urine Yellow; Epithelial Cell Urine Auto 0-2 /hpf (0-2); Glucose Urine UA 3+ (Negative); Ketones Urine Negative (Negative); Leukocyte Esterase Urine 1+ (Negative); Nitrite Urine Negative (Negative); Protein Urine Negative (Negative); RBC Urine Automated 0-2 /hpf (0-2); Specific Gravity Urine 1.018 (1.000-1.030); Urobilinogen Urine Negative (Negative); WBC Urine Automated 0-5 /hpf (0-5); pH Urine 5.5 (4.5-7.5)
[2024-07-27 19:05] LABS: ANTI-Xa, UFH(UnfractionatedHep 0.36 IU/ml (0.3-0.7)
--- NOTE | 2024-07-27 21:36 | Cardiology Consultation ---
Date of Consultation July 27, 2024 Assessment & Plan (1) Paroxysmal SVT (supraventricular tachycardia): (2) Hypertension: (3) Hx of aortic valve replacement, mechanical: (4) H/O mitral valve replacement with mechanical valve: (5) Warfarin anticoagulation: (6) Acute blood loss anemia: Plan ASSESSMENT/PLAN: 1. SVT: Mildly symptomatic but otherwise stable. Self resolved. Per records, has a history of SVT. Did not appear to be atrial fibrillation, possibly atrial tachycardia but cannot rule out atrial flutter. She is already on anticoagulation therapy chronically given mechanical aortic and mitral valves. Continue beta-stephany. If she has significant recurrence, especially for more significant symptoms or prolonged episode, could consider antiarrhythmic therapy. Consider 30-day event monitor in the outpatient setting. 2. Mechanical aortic and mitral valves: Continue anticoagulation for stroke risk reduction. Goal INR 2.5-3.5. Had been on aspirin chronically but currently on hold due to upper GI bleed. SBE prophylaxis for dental procedures. 3. Hypertension: Blood pressure mostly normotensive today. No changes made at this time. 4. Acute GI bleed with acute blood loss anemia: As per GI and primary hospitalist service. 5. Intracardiac shunt: A ebkn-mh-bhtso shunt was suggested on echo. Etiology not clear. Transesophageal echo may offer better evaluation but would not pursue in this nonurgent setting given that she is hospitalized for acute upper GI bleed. This can be considered in the outpatient setting with her primary emergency vehicle operations instructor, Dr. Ledesma, if deemed appropriate at that time. Echo findings discussed with patient. 6. Disposition: Please call with any further questions or concerns. Follow-up with Dr. Ledesma on discharge. Thank you for allowing me to participate in the care of your patient. Please call for any other questions or concerns. Sincerely, Jack Higgins M.D. History of Present Illness Reason for Consultation: "New onset A-fib" Requesting Physician: Dr. Edgar Attending Physician: Yesi Fulton MD History of Present Illness Ms. Muñoz is a very pleasant 74-year-old female with history significant for mechanical AVR, mechanical MVR, chronic anticoagulation therapy, hy pertension, dyslipidemia, paroxysmal SVT, stroke, CKD, hypothyroidism, and sleep apnea. Her primary emergency vehicle operations instructor is Dr. Ledesma. She was hospitalized on 07/26/2024 with GI bleed. There was concern for upper GI bleed as she had coffee-ground emesis and also melena for a few days prior to presentation. She underwent EGD on 07/26/2024 which reported evidence of blood in the gastric body. She has been followed by GI, who suspects possible mucosal bleeding secondary to supratherapeutic INR. Her INR was 6.7 on 07/26/2024. She has received 2 units of PRBC due to a hemoglobin of 5.6 on arrival. According to records, she developed arrhythmia during her EGD. It was felt to be atrial fibrillation by hospitalist service. When reviewing telemetry, heart rate was initially variable with rapid ventricular response, and then a rather flat trend on telemetry near 112 bpm for approximately 90 minutes. Rhythm appeared to be SVT versus atrial tachycardia or atrial flutter. It was difficult to discern on telemetry. She then converted to sinus rhythm at 4:03 AM on 07/27/2024. Her ECG during such arrhythmia demonstrated what appears to be sinus rhythm with frequent and consecutive PACs/atrial runs on 07/26/2024. She states that she felt palpitations during the episode and has had intermittent palpitations at home every few weeks or so, lasting typically for a few minutes before spontaneously resolving. There were no other associated symptoms such as chest pain, shortness of breath, syncope or near syncope. She does have occasional left-sided chest pain at other times, without specific trigger, occurring even at rest. It typically resolves spontaneously within a few minutes. Review of systems: As above. Family history: Noncontributory. Social history: She denies tobacco, alcohol, or drug abuse. She lives with her and son. She also has a daughter. She was unaccompanied. Allergies Allergy/AdvReac Type Severity Reaction Status Date / Time doxycycline Allergy Unknown CAN'T Verified 07/26/24 12:18 REMEMBER sulfamethoxazole Allergy Unknown CAN'T Verified 07/26/24 12:18 REMEMBER trimethoprim Allergy Unknown CAN'T Verified 07/26/24 12:18 REMEMBER Home Medications Medication Instructions Recorded Confirmed Type atorvastatin 40 mg tablet 40 mg PO HS 07/19/23 07/26/24 History metoprolol succinate 25 mg 25 mg PO BID 08/19/23 07/26/24 History tablet,extended release 24 hr levothyroxine 50 mcg tablet 50 mcg PO QAM #90 tabs 01/06/24 07/26/24 Rx calcium 600 mg (as 1 tab PO DAILY #90 tabs 03/10/24 07/26/24 Rx carbonate)-vitamin D3 10 mcg (400 unit) tablet citalopram 20 mg tablet 20 mg PO QAM #90 tabs 03/10/24 07/26/24 Rx pramipexole 0.125 mg tablet 0.125 mg PO QPM #90 tabs 04/21/24 07/26/24 Rx pregabalin 100 mg capsule (Lyrica) 100 mg PO PM #90 caps 04/21/24 07/26/24 Rx folic acid 1 mg tablet 0 mg PO DAILY 05/13/24 07/26/24 History amlodipine 2.5 mg tablet 2.5 mg PO QAM 05/14/24 07/26/24 History aspirin 81 mg tablet,delayed 81 mg PO DAILY 06/18/24 07/26/24 History release oxycodone 5 mg tablet 5 mg PO Q6H PRN pain #8 tabs 07/11/24 07/26/24 Rx oxycodone-acetaminophen 5 mg-325 1 tab PO Q8H PRN pain #10 tabs 07/14/24 07/26/24 Rx mg tablet allopurinol 100 mg tablet 100 mg PO DAILY #90 tabs 07/22/24 07/26/24 Rx isosorbide mononitrate 30 mg 30 mg PO QAM #90 tabs 07/22/24 07/26/24 Rx tablet,extended release 24 hr levetiracetam 500 mg tablet 500 mg PO BID #60 tabs 07/22/24 07/26/24 Rx (Keppra) lisinopril 5 mg tablet 5 mg PO HS #90 tabs 07/22/24 07/26/24 Rx warfarin 2 mg tablet See Rx Instructions PO UD #78 tabs 07/24/24 07/26/24 Rx cyanocobalamin (vitamin B-12) 1,000 mcg IM MONTHLY PRN B12 07/26/24 07/26/24 History 1,000 mcg/mL injection solution Deficiency Problem List (Updated 07/27/24 @ 21:51 by Arpit Higgins MD) Hyperkalemia Metabolic acidosis Acute hyperkalemia (Acute) Elevated INR (Acute) Anemia requiring transfusions (Acute) Acute upper GI hemorrhage (Acute) Acute blood loss anemia Acute upper GI bleeding Severe sprain of left ankle Pain and swelling of left ankle Grade 3 ankle sprain Stenosis of left internal carotid artery TIA (transient ischemic attack) Vitamin B12 deficiency 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 Carotid artery plaque Seizure-like activity Stroke-like episode Acquired stuttering Hypomagnesemia Stroke-like symptoms (Acute) Expressive aphasia (Acute) Hematuria Proteinuria Osteoporosis Chronic anemia Vitamin D deficiency Warfarin anticoagulation (Acute) CKD (chronic kidney disease) stage 4, GFR 15-29 ml/min Hx of aortic valve replacement, mechanical H/O mitral valve replacement with mechanical valve Effusion of knee joint right (Acute) Ambulatory dysfunction Dizziness Paroxysmal SVT (supraventricular tachycardia) (Chronic) Chronic constipation (Chronic) RLS (restless legs syndrome) (Chronic) Chronic pain (Chronic) Hypertension (Chronic) BIRDIE (obstructive sleep apnea) (Chronic) Dyslipidemia (Chronic) Hypothyroidism (Chronic) Patient History Medical History Acute kidney injury Open fracture of left distal radius (08/19/23) from a fall-saw orthopedics in the ED and was admitted to [facility] per ortho note History of CVA (cerebrovascular accident) History of transfusion of packed RBC 08/2023 1 unit CKD (chronic kidney disease), stage III Surgical History S/P ORIF (open reduction internal fixation) fracture Lt distal radius 08/23/23 Dr. Oscar Jones S/P total abdominal hysterectomy H/O neck surgery History of cholecystectomy H/O oophorectomy S/P repair of paraesophageal hernia History of total right hip replacement S/P lumbar fusion H/O hemorrhoidectomy Family History Father Heart disease Mother Stroke Social History Smoking Status: Never smoker Second Hand Exposure: No; Do You Dip or Chew Tobacco: No; Hx Alcohol Use: No Hx Substance Use: No Preferred Language: Luxembourgish Communication Ability: Effective Visual Impairment: No Limitations Hearing Ability: Hard of Hearing Cell Manager Required: No Beliefs That Will Affect Care: None marital status: Current Living Situation: Spouse Current Living Situation Comment: [employer] current occupational status: retired How many Children do You have: 2 Feels Safe at Home: Yes Childhood Exposure to Second-Hand Smoke: No Diet: regular Diet Comment: regular caffeine: No Dental Care, Regularly: No Physical Activity Frequency: Does not Exercise Seatbelt Use: always Sunscreen Use: No Assistive Devices: Cane and Walker Physical Exam Physical Exam: Gen.: No acute distress. Alert. HEENT: Anicteric sclera. Neck: No JVD. Bilateral carotid bruit versus radiation of cardiac murmur. Normal carotid upstrokes bilaterally. Cardiac: Regular. Mitchell S1-S2. 2/6 systolic murmur. Pulmonary: Clear to auscultation bilaterally without wheezes, rales, or rhonchi. Abdomen: Soft, nontender, nondistended, with normoactive bowel sounds. No bruits noted. Extremities: 2+ radial pulses bilaterally. 2+ posterior tibialis pulses bilaterally. No edema or cyanosis. Results & Data Vital Signs (Past 12 Hours) Vital Signs Temp Pulse Pulse Pulse Resp BP BP 07/27/24 19:22 36.6 C 75 16 114/74 07/27/24 15:30 37.2 C 78 18 117/58 L 07/27/24 13:22 78 07/27/24 12:55 83 20 129/54 L 07/27/24 11:42 36.5 C 75 18 95/50 L Pulse Ox O2 Del Method 07/27/24 19:22 99 Room Air 07/27/24 15:30 97 Room Air 07/27/24 13:22 07/27/24 12:55 100 Room Air 07/27/24 11:42 95 Room Air Laboratory Results Laboratory Results - last 24 hr 07/26/24 07/26/24 07/27/24 09:24 20:54 00:43 WBC RBC Hgb 8.2 L Hct 23.8 L MCV MCH MCHC RDW Std Deviation RDW Coeff of Gisele Plt Count MPV Immature Gran % (Auto) Neut % (Auto) Lymph % (Auto) [place] % (Auto) Eos % (Auto) Baso % (Auto) Neut # (Auto) Lymph # (Auto) [place] # (Auto) Eos # (Auto) Baso # (Auto) Immature Gran # (Auto) Absolute Nucleated RBC Nucleated RBC % (auto) Ovalocytes PT 10.4 INR 1.0 APTT PTT Ratio Heparin Anti-Xa, Unfract VBG pH 7.32 L VBG pCO2 41 VBG pO2 31 VBG HCO3 21 VBG O2 Saturation < 60.0 VBG Base Excess -4.8 Sodium 142 Potassium 4.1 Chloride 114 H Carbon Dioxide 22 Anion Gap 6 BUN 80 H Creatinine 2.30 H Est Cr Clr Drug Dosing 17.0 eGFR 21.76 BUN/Creatinine Ratio 34.8 H Glucose 182 H Calcium 8.4 L Magnesium 1.3 L Iron Cancelled Total Bilirubin AST ALT Alkaline Phosphatase Total Protein Albumin Globulin Albumin/Globulin Ratio TSH Urine Color Urine Appearance Urine pH Ur Specific [place] Urine Protein Urine Glucose (UA) Urine Ketones Urine Blood Urine Nitrite Urine Bilirubin Urine Urobilinogen Ur Leukocyte Esterase Urine WBC (Auto) Urine RBC (Auto) U Hyaline Cast (Auto) U Epithel Cells (Auto) Urine Bacteria (Auto) Stool Occult Bld Scrn Crossmatch See Detail 07/27/24 07/27/24 07/27/24 06:00 07:36 08:37 WBC 18.64 H RBC 2.67 L Hgb 8.1 L 8.1 L Hct 23.7 L 24.1 L MCV 88.8 D MCH 30.3 MCHC 34.2 RDW Std Deviation 51.1 H RDW Coeff of Gisele 16.2 H Plt Count 170 MPV 11.3 Immature Gran % (Auto) 1.4 Neut % (Auto) 91.1 Lymph % (Auto) 3.8 [place] % (Auto) 3.6 Eos % (Auto) 0.0 Baso % (Auto) 0.1 Neut # (Auto) 16.98 H Lymph # (Auto) 0.70 L [place] # (Auto) 0.68 H Eos # (Auto) 0.00 Baso # (Auto) 0.02 Immature Gran # (Auto) 0.26 H Absolute Nucleated RBC 0.02 Nucleated RBC % (auto) 0.1 Ovalocytes 1+ PT 10.0 INR 0.9 APTT 22 PTT Ratio 0.8 Heparin Anti-Xa, Unfract VBG pH VBG pCO2 VBG pO2 VBG HCO3 VBG O2 Saturation VBG Base Excess Sodium 139 Potassium TNP TNP Chloride 112 H Carbon Dioxide 21 Anion Gap 6 BUN 70 H Creatinine 2.24 H Est Cr Clr Drug Dosing 17.4 eGFR 22.46 BUN/Creatinine Ratio 31.3 H Glucose 200 H Calcium 8.8 Magnesium 2.8 H Iron Total Bilirubin 1.1 H D AST TNP TNP ALT 5 L Alkaline Phosphatase 61 Total Protein 5.6 L Albumin 3.1 L Globulin 2.5 Albumin/Globulin Ratio 1.2 TSH 1.068 Urine Color Urine Appearance Urine pH Ur Specific [place] Urine Protein Urine Glucose (UA) Urine Ketones Urine Blood Urine Nitrite Urine Bilirubin Urine Urobilinogen Ur Leukocyte Esterase Urine WBC (Auto) Urine RBC (Auto) U Hyaline Cast (Auto) U Epithel Cells (Auto) Urine Bacteria (Auto) Stool Occult Bld Scrn Crossmatch 07/27/24 07/27/24 07/27/24 09:42 17:29 17:50 WBC RBC Hgb Hct MCV MCH MCHC RDW Std Deviation RDW Coeff of Gisele Plt Count MPV Immature Gran % (Auto) Neut % (Auto) Lymph % (Auto) [place] % (Auto) Eos % (Auto) Baso % (Auto) Neut # (Auto) Lymph # (Auto) [place] # (Auto) Eos # (Auto) Baso # (Auto) Immature Gran # (Auto) Absolute Nucleated RBC Nucleated RBC % (auto) Ovalocytes PT INR APTT PTT Ratio Heparin Anti-Xa, Unfract 0.36 VBG pH VBG pCO2 VBG pO2 VBG HCO3 VBG O2 Saturation VBG Base Excess Sodium Potassium 4.1 Chloride Carbon Dioxide Anion Gap BUN Creatinine Est Cr Clr Drug Dosing eGFR BUN/Creatinine Ratio Glucose Calcium Magnesium Iron 147 Total Bilirubin AST 13 ALT Alkaline Phosphatase Total Protein Albumin Globulin Albumin/Globulin Ratio TSH Urine Color Yellow Urine Appearance Clear Urine pH 5.5 Ur Specific [place] 1.018 Urine Protein Negative Urine Glucose (UA) 3+ H Urine Ketones Negative Urine Blood Negative Urine Nitrite Negative Urine Bilirubin Negative Urine Urobilinogen Negative Ur Leukocyte Esterase 1+ H Urine WBC (Auto) 0-5 Urine RBC (Auto) 0-2 U Hyaline Cast (Auto) 0-2 U Epithel Cells (Auto) 0-2 Urine Bacteria (Auto) None Seen Stool Occult Bld Scrn Crossmatch 07/27/24 Unknown WBC RBC Hgb Hct MCV MCH MCHC RDW Std Deviation RDW Coeff of Gisele Plt Count MPV Immature Gran % (Auto) Neut % (Auto) Lymph % (Auto) [place] % (Auto) Eos % (Auto) Baso % (Auto) Neut # (Auto) Lymph # (Auto) [place] # (Auto) Eos # (Auto) Baso # (Auto) Immature Gran # (Auto) Absolute Nucleated RBC Nucleated RBC % (auto) Ovalocytes PT INR APTT PTT Ratio Heparin Anti-Xa, Unfract VBG pH VBG pCO2 VBG pO2 VBG HCO3 VBG O2 Saturation VBG Base Excess Sodium Potassium Chloride Carbon Dioxide Anion Gap BUN Creatinine Est Cr Clr Drug Dosing eGFR BUN/Creatinine Ratio Glucose Calcium Magnesium Iron Total Bilirubin AST ALT Alkaline Phosphatase Total Protein Albumin Globulin Albumin/Globulin Ratio TSH Urine Color Urine Appearance Urine pH Ur Specific [place] Urine Protein Urine Glucose (UA) Urine Ketones Urine Blood Urine Nitrite Urine Bilirubin Urine Urobilinogen Ur Leukocyte Esterase Urine WBC (Auto) Urine RBC (Auto) U Hyaline Cast (Auto) U Epithel Cells (Auto) Urine Bacteria (Auto) Stool Occult Bld Scrn Positive A Crossmatch Diagnostic Findings History and physical report reviewed. GI note reviewed. EGD report reviewed as noted above in HPI. Labs reviewed and notable for abnormal but stable renal function, normal potassium, nonelevated transaminase levels, normal TSH, leukocytosis (increasing), anemia. Telemetry personally reviewed as noted above in HPI. ECG personally reviewed: ECG 07/27/2024 at 4:38 AM: Sinus rhythm with PACs. Anterior T wave abnormality. ECG 07/26/2024 at 1522: Sinus rhythm with atrial runs. [address]/T wave abnormality. Lateral T wave abnormality. ECG 07/26/2024 at 9:19 AM: Sinus rhythm [address]/T wave abnormality. Lateral T wave abnormality. Echo 07/27/2024 [facility]: Mildly dilated LV. EF 60-65%. Normal wall motion. No LVH. Mild biatrial dilation. Mechanical AVR with acceptable gradient. Mechanical MVR with acceptable gradient. No significant MR. [id number]-lt-[id number] shunt suspected, into the right atrium. Uncertain etiology. Normal RVSP. Medications Administered Current Inpatient Medications Atorvastatin Calcium (Atorvastatin 40 Mg Tab) 40 mg PO HS [facility] Stop: 08/25/24 20:59 Last Admin: 07/27/24 19:49 Dose: 40 mg Citalopram Hydrobromide (Citalopram 20 Mg Tab) 20 mg PO QAM [facility] Stop: 08/26/24 08:59 Last Admin: 07/27/24 09:28 Dose: 20 mg Pantoprazole Sodium (Protonix) 40 mg in 10 mls @ 5 mls/min IV BID [facility] Stop: 08/26/24 08:59 Last Admin: 07/27/24 19:49 Dose: 5 mls/min Heparin Sodium/Dextrose (Heparin 70830 Unit/500 Ml) 25,000 units in 500 mls @ 12 mls/hr IV .Q24H OLGA; Protocol Stop: 08/26/24 09:14 Last Titration: 07/27/24 18:53 Dose: 600 units/hr, 12 mls/hr Isosorbide Mononitrate (Isosorbide [place] Extended Rel 30 Mg Tabcr) 30 mg PO QAM [facility] Stop: 08/26/24 08:59 Last Admin: 07/27/24 09:27 Dose: 30 mg Levetiracetam (Levetiracetam 500 Mg Tab) 500 mg PO BID [facility] Stop: 08/25/24 20:59 Last Admin: 07/27/24 19:49 Dose: 500 mg Levothyroxine Sodium (Levothyroxine Sodium 50 Mcg Tablet) 50 mcg PO DAILYBB [facility] Stop: 08/26/24 06:29 Last Admin: 07/27/24 05:44 Dose: 50 mcg Metoprolol Succinate (Metoprolol Succ 25mg Ext Rel Tab) 25 mg PO BID [facility] Stop: 08/25/24 20:59 Last Admin: 07/27/24 19:49 Dose: 25 mg Polyethylene Glycol (Polyethylene (Miralax) 17 Gm Pack) 17 gm PO DAILY [facility] Stop: 08/26/24 11:29 Last Admin: 07/27/24 11:56 Dose: 17 gm Pramipexole Dihydrochloride (Pramipexole Dihydrochlo 0.25 Mg Tab) 0.125 mg PO QPM OLGA Stop: 08/25/24 20:59 Last Admin: 07/27/24 19:49 Dose: 0.125 mg Pregabalin (Pregabalin 100 Mg Cap) 100 mg PO PM [facility]GA Stop: 08/25/24 20:59 Last Admin: 07/27/24 19:53 Dose: 100 mg PG Care Time/CCT Total # of Minutes Spent Total Time Spent with Patient: Total time spent is greater than 50% in coordination of care (as documented) at patient's floor/unit and/or counseling patient: Coding Level of Care Code 53882 INT INP/OBS CARE MIN Diagnoses Paroxysmal SVT (supraventricular tachycardia) I47.1 Hypertension I10 Hypertension type: unspecified Hx of aortic valve replacement, mechanical Z95.2 H/O mitral valve replacement with mechanical valve Z95.2 Warfarin anticoagulation Z79.01 Acute blood loss anemia D62 (2) Hypertension Hypertension type: unspecified Qualified Code(s): I10 - Essential (primary) hypertension
[2024-07-27] MEDS: ACETAMINOPHEN 325 MG TAB PO PRN (22:45)
--- NOTE | 2024-07-28 06:03 | Electrocardiogram Report ---
Test Reason : Blood Pressure : */* mmHG Vent. Rate : 69 BPM Atrial Rate : 69 BPM P-R Int : 176 ms QRS Dur : 108 ms QT Int : 428 ms P-R-T Axes : -81 -5 99 degrees QTcB Int : 458 ms Sinus rhythm Premature atrial complexes Abnormal ECG When compared with ECG of 26-Jul-2024 15:22, Nonspecific T wave abnormality has replaced inverted T waves in Lateral leads QT has lengthened Confirmed by Arpit Higgins ([id number]) on 07/28/2024 6:03:26 AM Referred By: REFERRED SELF Confirmed By: Arpit Higgins
[2024-07-28] MEDS: PANTOPRAZOLE BOLUS/DRIP IV STA (07:54)
[2024-07-28 08:00] LABS: Basophils # (auto) 0.01 K/uL (0.00-0.20); Basophils % (auto) 0.1 %; Eosinophils # (auto) 0.01 K/uL (0.00-0.50); Eosinophils % (auto) 0.1 %; Hemoglobin 7.8 g/dl (12.0-16.0); Immature Granulocytes # (auto) 0.22 K/uL (0.01-0.20); Immature Granulocytes % (auto) 1.4 %; Lymphocytes # (auto) 1.26 K/uL (1.20-3.40); Mean Corpuscular Hemoglobin 30.4 pg (25.0-34.0); Mean Corpuscular Hgb Conc 33.9 g/dL (32.0-36.0); Mean Corpuscular Volume 89.5 fL (80.0-100.0); Mean Platelet Volume 10.6 fL (9.4-12.4); Monocytes # (auto) 1.01 K/uL (0.11-0.59); Monocytes % (auto) 6.4 %; Neutrophils # (auto) 13.32 K/uL (1.40-6.50); Nucleated RBC # (auto) 0.02 K/uL (0.00-0.12); Nucleated RBC % (auto) 0.1 %; Platelet Count 163 K/uL (130-400); RDW Coefficient of Variation 16.5 % (11.5-14.5); RDW Standard Deviation 52.2 fL (36.4-46.3); Red Blood Count 2.57 M/uL (4.20-5.40); White Blood Count 15.83 K/ul (4.8-10.8)
[2024-07-28 08:16] LABS: BUN Creatinine Ratio 23.3 (10-20); Calcium 8.3 mg/dl (8.6-10.3); Creatinine Clr Calc Pharmacy 17.2 ml/min
[2024-07-28 08:20] LABS: ANTI-Xa, UFH(UnfractionatedHep 0.42 IU/ml (0.3-0.7)
[2024-07-28 08:32] LABS: Ferritin 364.6 ng/ml (8-388)
[2024-07-28 08:37] LABS: Folate (Folic Acid),Ser orPlas 19.75 ng/ml (>5.38)
[2024-07-28 08:39] LABS: Ovalocytes 1+
--- NOTE | 2024-07-28 10:40 | Gastroenterology Progress Note ---
Date of Service July 28, 2024 Assessment & Plan (1) Acute blood loss anemia: Plan: -Continue to monitor H/H -Monitor for ongoing overt GI bleeding -Continue IV PPI therapy Admission and Anticipated Discharge Date Admission Date: July 26, 2024 Subjective Patient is a 74 yo female with anemia. She had a black stool on 07/27. No he matemesis. H/H 7.8/23.0. platelets 163. BUN/Cr 53/2.27. She continues on IV PPI therapy. She is on heparin at present with plans to bridge to Coumadin. Last INR 0.9. Review of Systems Gastrointestinal: + melena Physical Exam Constitutional: well developed Gastrointestinal (Abdomen): normal bowel sounds, soft, nontender, no hepatosplenomegaly Psychiatric: Orientation: alert and oriented x 3 Results & Data Results & Data Vital Signs (Past 12 Hours) Vital Signs Temp Pulse Pulse Resp BP Pulse Ox O2 Del Method 07/28/24 07:48 36.5 C 65 18 119/68 97 Room Air 07/28/24 06:24 70 07/28/24 03:19 36.7 C 68 16 118/71 95 Room Air 07/27/24 23:18 36.8 C 75 16 117/64 95 Room Air PG Care Time/CCT Total # of Minutes Spent Total Time Spent with Patient: Total time spent is greater than 50% in coordination of care (as documented) at patient's floor/unit and/or counseling patient: Coding Level of Care Code 72691 SUB INP/OBS CARE 2/35MIN Diagnoses Acute blood loss anemia D62
[2024-07-28] MEDS: allopurinoL 100 MG TAB PO SCH (12:53)
--- NOTE | 2024-07-28 15:40 | XRay Report ---
KUB CLINICAL HISTORY: Abdominal pain. Abdominal distention. COMPARISON STUDY: CT of the abdomen and pelvis July 06, 2024. KUB June 02, 2022. FINDINGS: Postoperative findings within the spine, median sternotomy wires, prosthetic mitral valve a nd right hip arthroplasty are incidentally noted. The bowel gas pattern is normal. The amount of stoo l is within normal limits. IMPRESSION: No evidence for a bowel obstruction. Unremarkable KUB. ACT 112: Negative or not required by law. Electronically signed by: Angel Munson M.D. 07/28/2024 3:39 PM
[2024-07-28] MEDS: WARFARIN SOD 2 MG TAB PO SCH (16:10)
[2024-07-28] MEDS: bisacodyL 10 MG SUPP PR STA (16:11)
--- NOTE | 2024-07-28 16:22 | Hospitalist Progress Note ---
Date of Service July 28, 2024 Assessment & Plan (1) Acute upper GI bleeding: (2) Acute blood loss anemia: (3) H/O mitral valve replacement with mechanical valve: (4) Hx of aortic valve replacement, mechanical: (5) Pain and swelling of left ankle: (6) Metabolic acidosis: (7) Hyperkalemia: Plan Magda is a 74 year old female with a PMHx of TIA, siezure like activity, hx of mechanical mitral and aortic valve, CKD, ankle sprain who presents to the ER with coffee-ground emesis for the last 48 hours with melena. Supratherapeutic INR on admission (6.7), reversed in the ED. EGD without source of bleeding. Hgb remained stable and was started on heparin drip for bridging to coumadin which was resumed on 07/28. #Acute GI bleed/ Acute blood loss anemia Suspected secondary to recent ibuprofen use with recent ankle sprain and supratherapeutic INR (6.7 on admission), was given Vitamin K and Kcentra on admission. Consult gastroenterology - s/p EGD 07/26 without active signs of bleed. Okay to advance diet as tolerated - full liquids for lunch Switched to BID protonix IV Hgb 5.6 on arrival - s/p 2u PRBCs, hgb 8.1 and stable On ASA for hx of stroke like symptoms - this is held Baseline chronic anemia - check B12/folate/Fe studies. TSH WNL WBC decreasing suspect stress reaction Dizzy when ambulating to the bathroom - orthostatics negative. Dizziness has improved. OT recommending Home with and / support. Abdominal distention and mild pain - KUB without obstruction. Miralax added by GI. Suppository and simethicone added to encourage BM #Hx of Mitral and Atrial Valve replacement/ Hx of stroke Reason for Coumadin (goal 2.5-3.5). Follows with Coumadin clinic. INR 0.9 after reversal Continue heparin drip. Coumadin resumed 2 AM INR #SVT Concerns for afib during EGD, but not documented on EKG. Cardiology consulted - did not appear as afib possible SVT vs flutter. Regardless will be anticoagulated with artificial valves. Already on metoprolol. Consider 30-day monitor. Echo showing left to right shunt - cardiology recommending outpatient follow up #Left Ankle Sprain Follows with podiatry, Dr. Lam Partial weightbearing to left foot, frequent ice PT/OT #CKD - Cr at baseline. Avoid nephrotoxins. Likely contributing to her chronic anemia #Hyperkalemia -Received Calcium gluconate, insulin/dextrose - now resolved. Seizures - continue keppra mental health - continue celexa hypothyroid - continue Synthroid, TSH WNL HTN - amlodipine and lisinopril resumed Gout - continue allopurinol Dispo: continued inpatient stay bridging to Coumadin DVT proh: low dose heparin drip family updated at bedside 07/27 Admission and Anticipated Discharge Date Admission Date: July 26, 2024 Supervising Physician Co-Signing Physician Notes PA Supervision Note: I did not personally see or examine the patient today, but I verified all cole points of JOSE Galindo's assessment and plan with the following exceptions/additions: None Subjective Patient seen around 1130 this morning. Has mild abdominal pain but has not been having further nausea vomiting or dark stools. denies chest pain or shortness of breath Tele - SR with PVCs, PACs 70-80s Review of Systems Review of Systems: All systems reviewed & are unremarkable except as noted in Subjective Physical Exam Physical Exam: General: NAD, VS as above, lying in bed, appears well Resp: normal respiratory effort, lungs clear to auscultation CV: RRR, no murmur, Abd: normal bowel sounds, mild distention, tender with palation Extremities: Moves all extremities, no edema Neuro: A&O x3, Results & Data Results & Data Vital Signs (Past 12 Hours) Vital Signs Temp Pulse Pulse Resp BP Pulse Ox O2 Del Method 07/28/24 15:52 98.1 F 70 18 110/63 97 Room Air 07/28/24 11:49 98.1 F 64 19 109/49 L 97 Room Air 07/28/24 07:48 97.7 F 65 18 119/68 97 Room Air 07/28/24 06:24 70 Laboratory Results CBC, chemistry, fe studies B12 and folate reviewed PG Care Time/CCT Total # of Minutes Spent Total Time Spent with Patient: Total time spent is greater than 50% in coordination of care (as documented) at patient's floor/unit and/or counseling patient: Coding Level of Care Code 09511 SUB INP/OBS CARE 3/50MIN Diagnoses Acute upper GI bleeding K92.2 Acute blood loss anemia D62 H/O mitral valve replacement with mechanical valve Z95.2 Hx of aortic valve replacement, mechanical Z95.2 Pain and swelling of left ankle M25.572; M25.472 Metabolic acidosis E87.20 Hyperkalemia E87.5
[2024-07-28] MEDS: SIMETHICONE 80 MG CHEW PO PRN (17:24)
[2024-07-28] MEDS: lisinopril 5 MG TAB PO SCH (20:33)
--- NOTE | 2024-07-29 05:28 | Electrocardiogram Report ---
Test Reason : Blood Pressure : */* mmHG Vent. Rate : 64 BPM Atrial Rate : * BPM P-R Int : * ms QRS Dur : 100 ms QT Int : 448 ms P-R-T Axes : * -7 108 degrees QTcB Int : 462 ms Sinus rhythm with PACs and PVCs Minimal voltage criteria for LVH, may be normal variant ( R in aVL ) Abnormal ECG When compared with ECG of 27-Jul-2024 04:38, Premature ventricular complexes are now Present Confirmed by Arpit Higgins ([id number] on 07/29/2024 5:27:49 AM Referred By: REFERRED SELF Confirmed By: Arpit Higgins
[2024-07-29 07:42] LABS: BUN Creatinine Ratio 20.1 (10-20); Calcium 8.1 mg/dl (8.6-10.3); Creatinine Clr Calc Pharmacy 18.7 ml/min; Potassium 4.3 mmol/L (3.5-5.1)
[2024-07-29 07:44] LABS: ANTI-Xa, UFH(UnfractionatedHep 0.37 IU/ml (0.3-0.7); INR 1.1 (0.9-1.1); Prothrombin Time 11.4 Seconds (9.0-12.0)
[2024-07-29] MEDS: amLODIPine BESYLATE 5 MG TAB PO SCH (08:20)
[2024-07-29 08:55] LABS: Hematocrit (blood only) 21.5 % (37.0-47.0); Hemoglobin 7.3 g/dl (12.0-16.0); Mean Corpuscular Hemoglobin 30.7 pg (25.0-34.0); Mean Corpuscular Volume 90.3 fL (80.0-100.0); Mean Platelet Volume 11.3 fL (9.4-12.4); Nucleated RBC # (auto) 0.02 K/uL (0.00-0.12); Nucleated RBC % (auto) 0.2 %; Platelet Count 160 K/uL (130-400); RDW Coefficient of Variation 16.4 % (11.5-14.5); RDW Standard Deviation 51.4 fL (36.4-46.3); Red Blood Count 2.38 M/uL (4.20-5.40); White Blood Count 10.37 K/ul (4.8-10.8)
[2024-07-29] MEDS: FOLIC ACID 1 MG TAB PO SCH (11:29)
--- NOTE | 2024-07-29 12:35 | Communication Note ---
Date of Service: July 29, 2024 GI following for anemia. H/H 7.3/21.5 today. She had a dark stool yesterday after being constipated since prior to the EGD. She is taking a bowel regimen and has begun to move her bowels. No ongoing overt GI bleeding. At this time, would advise monitoring H/H, monitoring for ongoing overt GI bleeding, and continue PPI. No discrete bleeding source found on EGD. GI will follow peripherally. Please notify us with worsening GI symptoms.
--- NOTE | 2024-07-29 12:52 | Electrocardiogram Report ---
Test Reason : Blood Pressure : */* mmHG Vent. Rate : 78 BPM Atrial Rate : 78 BPM P-R Int : 128 ms QRS Dur : 104 ms QT Int : 450 ms P-R-T Axes : * -9 3 degrees QTcB Int : 513 ms Normal sinus rhythm Minimal voltage criteria for LVH, may be normal variant ( R in aVL ) Nonspecific T wave abnormality Prolonged QT Abnormal ECG When compared with ECG of 28-Jul-2024 05:51, Nonspecific T wave abnormality, improved in Lateral leads QT has lengthened Confirmed by Troy Ledesma ([id number]) on 07/29/2024 12:51:52 PM Referred By: REFERRED SELF Confirmed By: Troy Ledesma
[2024-07-29] MEDS ORDERED: POLYETHYLENE (MIRALAX) 17 GM PACK PO PRN (13:32)
--- NOTE | 2024-07-29 13:33 | Hospitalist Progress Note ---
Date of Service July 29, 2024 Assessment & Plan (1) Acute upper GI bleeding: (2) Acute blood loss anemia: (3) H/O mitral valve replacement with mechanical valve: (4) Hx of aortic valve replacement, mechanical: (5) Pain and swelling of left ankle: (6) Metabolic acidosis: (7) Hyperkalemia: Plan Magda is a 74 year old female with a PMHx of TIA, siezure like activity, hx of mechanical mitral and aortic valve, CKD, ankle sprain who presents to the ER with coffee-ground emesis for the last 48 hours with melena. Supratherapeutic INR on admission (6.7), reversed in the ED. EGD without source of bleeding. Hgb remained stable and was started on heparin drip for bridging to coumadin which was resumed on 07/28. #Acute GI bleed/ Acute blood loss anemia Suspected secondary to recent ibuprofen use with recent ankle sprain and supratherapeutic INR (6.7 on admission), was given Vitamin K and Kcentra on admission. Consult gastroenterology - s/p EGD 07/26 without active signs of bleed. continue PPI, converted to p.o. Hgb 5.6 on arrival - s/p 2u PRBCs, hgb Slowly downtrending, 7.3 this morning. No signs of active GI bleeding, continue to trend On ASA for hx of stroke like symptoms - this is held Baseline chronic anemia - B12/folate/TSH WNL. iron studies consistent with anemia of chronic disease. WBC decreasing suspect stress reaction Dizzy when ambulating to the bathroom - orthostatics negative. Dizziness has improved. OT recommending Home with and / support. Constipation - KUB without obstruction, abd distention improved. Continue miralax. Senna added. Encourage ambulation. #Hx of Mitral and Atrial Valve replacement/ Hx of stroke Reason for Coumadin (goal 2.5-3.5). Follows with Coumadin clinic. Continue heparin drip until Coumadin therapeutic. Coumadin resumed 07/28 INR 1.1, AM INR #SVT Concerns for afib during EGD, but not documented on EKG. Cardiology consulted - did not appear as afib possible SVT vs flutter. Regardless will be anticoagulated with artificial valves. Already on metoprolol. Consider 30-day monitor. Echo showing left to right shunt - cardiology recommending outpatient follow up #Left Ankle Sprain Follows with podiatry, Dr. Lam Partial weightbearing to left foot, frequent ice PT/OT #CKD - Cr at baseline. Avoid nephrotoxins. Likely contributing to her chronic anemia #Hyperkalemia -Received Calcium gluconate, insulin/dextrose - now resolved. Seizures - continue keppra mental health - continue celexa hypothyroid - continue Synthroid, TSH WNL HTN - amlodipine and lisinopril resumed Gout - continue allopurinol Dispo: continued inpatient stay bridging to Coumadin, stable for downgrade to medical DVT proh: low dose heparin drip/ coumadin family updated at bedside 07/27 Admission and Anticipated Discharge Date Admission Date: July 26, 2024 Supervising Physician Co-Signing Physician Notes PA Supervision Note: I did not personally see or examine the patient today, but I verified all ocle points of JOSE Galindo's assessment and plan with the following exceptions/additions: None Subjective patient seen earlier this morning, no family present at bedside. States that her abdominal pain is improved. She had 2 small bowel movements yesterday but nothing sizable. Her abdominal bloating/distention is much improved, she was able to ambulate in the hallway today. Tolerating appetite without issue Plan to continue her bowel regimen monitor for signs of bleeding Telemetry sinus rhythm with PACs in the 60s Review of Systems Review of Systems: All systems reviewed & are unremarkable except as noted in Subjective Physical Exam Physical Exam: General: NAD, VS as above, lying in bed, appears well Resp: normal respiratory effort, lungs clear to auscultation CV: RRR, no murmur, Abd: normal bowel sounds, nondistended, soft, nontender to palpation Extremities: Moves all extremities, no edema Neuro: A&O x3, Results & Data Results & Data Vital Signs (Past 12 Hours) Vital Signs Temp Pulse Pulse Resp BP BP Pulse Ox 07/29/24 11:06 98.1 F 64 18 95/54 L 97 07/29/24 09:48 68 07/29/24 07:35 98.4 F 61 18 105/53 L 95 07/29/24 03:24 97.9 F 64 18 101/55 L 95 O2 Del Method 07/29/24 11:06 Room Air 07/29/24 09:48 07/29/24 07:35 Room Air 07/29/24 03:24 Room Air Laboratory Results CBC, chemistry, INR reviewed Diagnostic Findings KUB reviewed PG Care Time/CCT Total # of Minutes Spent Total Time Spent with Patient: Total time spent is greater than 50% in coordination of care (as documented) at patient's floor/unit and/or counseling patient: Coding Level of Care Code 69948 SUB INP/OBS CARE 3/50MIN Diagnoses Acute upper GI bleeding K92.2 Acute blood loss anemia D62 H/O mitral valve replacement with mechanical valve Z95.2 Hx of aortic valve replacement, mechanical Z95.2 Pain and swelling of left ankle M25.572; M25.472 Metabolic acidosis E87.20 Hyperkalemia E87.5
[2024-07-29] MEDS: DOCUSATE SODIUM/SENNA 50/8.6MG TAB PO SCH (15:07)
[2024-07-29] MEDS: WARFARIN SOD 2 MG TAB PO SCH (17:51)
[2024-07-29] MEDS: PANTOprazole 40 MG TAB PO SCH (20:29)
[2024-07-30 04:21] LABS: Hematocrit (blood only) 24.4 % (37.0-47.0); Mean Corpuscular Hemoglobin 30.3 pg (25.0-34.0); Mean Corpuscular Hgb Conc 32.8 g/dL (32.0-36.0); Mean Corpuscular Volume 92.4 fL (80.0-100.0); Nucleated RBC # (auto) 0.03 K/uL (0.00-0.12); Nucleated RBC % (auto) 0.3 %; Platelet Count 167 K/uL (130-400); RDW Coefficient of Variation 16.4 % (11.5-14.5); RDW Standard Deviation 50.8 fL (36.4-46.3); Red Blood Count 2.64 M/uL (4.20-5.40); White Blood Count 10.83 K/ul (4.8-10.8)
[2024-07-30 04:33] LABS: BUN Creatinine Ratio 17.4 (10-20); Calcium 8.4 mg/dl (8.6-10.3); Creatinine Clr Calc Pharmacy 16.6 ml/min; Potassium 4.3 mmol/L (3.5-5.1)
[2024-07-30 04:39] LABS: ANTI-Xa, UFH(UnfractionatedHep 0.34 IU/ml (0.3-0.7)
[2024-07-30 04:42] LABS: INR 1.1 (0.9-1.1); Prothrombin Time 12.3 Seconds (9.0-12.0)
--- NOTE | 2024-07-30 10:09 | Hospitalist Progress Note ---
Date of Service July 30, 2024 Assessment & Plan (1) Acute upper GI bleeding: (2) Acute blood loss anemia: (3) H/O mitral valve replacement with mechanical valve: (4) Hx of aortic valve replacement, mechanical: (5) Pain and swelling of left ankle: (6) Metabolic acidosis: (7) Hyperkalemia: Plan Magda is a 74 year old female with a PMHx of TIA, siezure like activity, hx of mechanical mitral and aortic valve, CKD, ankle sprain who presents to the ER with coffee-ground emesis for the last 48 hours with melena. Supratherapeutic INR on admission (6.7), reversed in the ED. EGD without source of bleeding. Hgb 5.6 on arrival - s/p 2units PRBCs. Hgb remained stable and was started on heparin drip for bridging to Coumadin which was resumed on 07/28. #Acute GI bleed/ Acute blood loss anemia Consult gastroenterology - s/p EGD 07/26 without active signs of bleed. continue PPI, converted to p.o. Hgb 5.6 on arrival - s/p 2u PRBCs, hgb stable 8.0. No signs of active GI bleeding On ASA for hx of stroke like symptoms - this is held Baseline chronic anemia - B12/folate/TSH WNL. iron studies consistent with anemia of chronic disease. WBC decreasing suspect stress reaction PT/ OT recommending Home with and 24/ support. Constipation - KUB without obstruction, abd distention returned but better than prior. Continue miralax, Senna. Encourage ambulation. Suppository today, if no BM this afternoon then enema #Hx of Mitral and Atrial Valve replacement/ Hx of stroke Reason for Coumadin (goal 2.5-3.5). Follows with Coumadin clinic. Continue heparin drip until Coumadin therapeutic. Coumadin resumed 07/28 INR 1.1, AM INR #SVT Concerns for afib during EGD, but not documented on EKG. Cardiology consulted - did not appear as afib possible SVT vs flutter. Regardless will be anticoagulated with artificial valves. Already on metoprolol. Consider 30-day monitor. Echo showing left to right shunt - cardiology recommending outpatient follow up #Left Ankle Sprain Follows with podiatry, Dr. Lam Partial weightbearing to left foot, frequent ice PT/OT #CKD - Cr at baseline. Avoid nephrotoxins. Likely contributing to her chronic anemia #Hyperkalemia -Received Calcium gluconate, insulin/dextrose - now resolved. #HTN - lisinopril resumed. Amlodipine held with hypotension #Seizures - continue keppra #mental health - continue celexa #hypothyroid - continue Synthroid, TSH WNL #Gout - continue allopurinol Dispo: continued inpatient stay bridging to Coumadin DVT proh: low dose heparin drip/ coumadin family updated at bedside 07/27 Admission and Anticipated Discharge Date Admission Date: July 26, 2024 Supervising Physician Co-Signing Physician Notes PA Supervision Note: I did not personally see or examine the patient today, but I verified all cole points of JOSE Galindo's assessment and plan with the following exceptions/additions: None Subjective Magda seen lying in bed, feels like her stomach is starting to get bloated again. Not painful at this time. Still has not had significant bowel movement Tolerating appetite no signs of GI bleeding at this time Review of Systems Review of Systems: All systems reviewed & are unremarkable except as noted in Subjective Physical Exam Physical Exam: General: NAD, VS as above, lying in bed, appears well Resp: normal respiratory effort, lungs clear to auscultation CV: RRR, no murmur, Abd: normal bowel sounds, midly distended , soft, nontender to palpation Extremities: Moves all extremities, no edema Neuro: A&O x3, Results & Data Results & Data Vital Signs (Past 12 Hours) Vital Signs Temp Pulse Resp BP Pulse Ox O2 Del Method 07/30/24 07:10 98.1 F 64 16 114/48 L 96 Room Air Laboratory Results CBC, chemistry and INR Reviewed PG Care Time/CCT Total # of Minutes Spent Total Time Spent with Patient: Total time spent is greater than 50% in coordination of care (as documented) at patient's floor/unit and/or counseling patient: Coding Level of Care Code 88286 SUB INP/OBS CARE 235MIN Diagnoses Acute upper GI bleeding K92.2 Acute blood loss anemia D62 H/O mitral valve replacement with mechanical valve Z95.2 Hx of aortic valve replacement, mechanical Z95.2 Pain and swelling of left ankle M25.572; M25.472 Metabolic acidosis E87.20 Hyperkalemia E87.5
[2024-07-30] MEDS: bisacodyL 10 MG SUPP PR STA (10:13)
[2024-07-31 07:44] LABS: Hematocrit (blood only) 23.3 % (37.0-47.0); Hemoglobin 7.6 g/dl (12.0-16.0); Mean Corpuscular Hemoglobin 29.9 pg (25.0-34.0); Mean Corpuscular Hgb Conc 32.6 g/dL (32.0-36.0); Mean Corpuscular Volume 91.7 fL (80.0-100.0); Mean Platelet Volume 11.3 fL (9.4-12.4); Platelet Count 167 K/uL (130-400); RDW Coefficient of Variation 16.4 % (11.5-14.5); RDW Standard Deviation 48.8 fL (36.4-46.3); Red Blood Count 2.54 M/uL (4.20-5.40); White Blood Count 8.75 K/ul (4.8-10.8)
[2024-07-31 08:05] LABS: ANTI-Xa, UFH(UnfractionatedHep 0.46 IU/ml (0.3-0.7)
[2024-07-31 08:10] LABS: INR 1.4 (0.9-1.1); Prothrombin Time 14.4 Seconds (9.0-12.0)
[2024-07-31] MEDS: IRON SUCROSE 300 MG in SODIUM CHLORIDE 0.9% 250 ML IV ONE (11:17)
--- NOTE | 2024-07-31 14:24 | Hospitalist Progress Note ---
Date of Service July 31, 2024 Assessment & Plan (1) Acute upper GI bleeding: (2) Acute blood loss anemia: (3) H/O mitral valve replacement with mechanical valve: (4) Hx of aortic valve replacement, mechanical: Jorge Man is a 74 year old female with a PMHx of TIA, siezure like activity, hx of mechanical mitral and aortic valve, CKD, ankle sprain who presents to the ER with coffee-ground emesis for the last 48 hours with melena. Supratherapeutic INR on admission (6.7), reversed in the ED. EGD without source of bleeding. Hgb 5.6 on arrival - s/p 2units PRBCs. Hgb remained stable and was started on heparin drip for bridging to Coumadin which was resumed on 07/28. #Acute GI bleed/ Acute blood loss anemia Consult gastroenterology - s/p EGD 07/26 without active signs of bleed. continue PPI, converted to p.o. Hgb 5.6 on arrival - s/p 2u PRBCs, hgb stable 7.6. No signs of active GI bleeding On ASA for hx of stroke like symptoms - this is held Baseline chronic anemia - B12/folate/TSH WNL. iron studies consistent with anemia of chronic disease. we will get Venofer 1 today, avoiding p.o. iron due to constipation. PT/ OT recommending Home with and 07/01 support. #Constipation - Continue miralax, Senna. Encourage ambulation. Small bowel movement after suppository. Consider p.o. Dulcolax this afternoon #Hx of Mitral and Atrial Valve replacement/ Hx of stroke Reason for Coumadin (goal 2.5-3.5). Follows with Coumadin clinic. Continue heparin drip until Coumadin therapeutic. Coumadin resumed 07/28 INR 1.4, AM INR #HTN Now with hypotension - but asymptomatic. Patient reports she does not cook with a lot of salt but diet upgraded to regular to mimic home environment. lisinopril resumed. Amlodipine held with hypotension Decreased metoprolol to once daily #SVT Concerns for afib during EGD, but not documented on EKG. Cardiology consulted - did not appear as afib possible SVT vs flutter. Regardless will be anticoagulated with artificial valves. Already on metoprolol. Consider 30-day monitor. Echo showing left to right shunt - cardiology recommending outpatient follow up #Left Ankle Sprain Follows with podiatry, Dr. Lam Partial weightbearing to left foot, frequent ice PT/OT #CKD - Cr at baseline. Avoid nephrotoxins. Likely contributing to her chronic anemia #Hyperkalemia -Received Calcium gluconate, insulin/dextrose - now resolved. #Seizures - continue keppra #mental health - continue celexa #hypothyroid - continue Synthroid, TSH WNL #Gout - continue allopurinol Dispo: continued inpatient stay bridging to Coumadin DVT proph: low dose heparin drip/ coumadin family updated at bedside 07/27 Admission and Anticipated Discharge Date Admission Date: July 26, 2024 Supervising Physician Co-Signing Physician Notes PA Supervision Note: I did not personally see or examine the patient today, but I verified all cole points of JOSE Galindo's assessment and plan with the following exceptions/additions: None Subjective Patient seen lying in bed, RN reported that she had an episode with physical therapy this morning. When discussed this with the patient states after she was walking for a while she got short of breath and had to sit down, patient states that this happens to her at home. She denies dizziness at this time At the time of my evaluation, patient is feeling well, no shortness of breath. Explained IV iron and the rationale and she is agreeable. Had a small bowel movement yesterday but still feels that she was bloated with twinges of abdominal pain. Will continue with bowel regimen today consider Dulcolax p.o. if no bowel movement this afternoon Review of Systems Review of Systems: All systems reviewed & are unremarkable except as noted in Subjective Physical Exam Physical Exam: General: NAD, VS as above, lying in bed, appears well Resp: normal respiratory effort, lungs clear to auscultation CV: RRR, no murmur, Abd: normal bowel sounds, midly distended , soft, nontender to palpation Extremities: Moves all extremities, no edema Neuro: A&O x3, Results & Data Results & Data Vital Signs (Past 12 Hours) Vital Signs Temp Pulse Resp BP BP Pulse Ox O2 Del Method 07/31/24 14:04 98.2 F 82 16 96/55 L 97 Room Air 07/31/24 13:56 98 07/31/24 13:04 97.9 F 83 18 102/52 L 98 Room Air 07/31/24 11:45 97.9 F 67 18 92/49 L 97 Room Air 07/31/24 11:16 97.7 F 72 18 92/50 L 97 Room Air 07/31/24 09:45 73 93/53 L 07/31/24 08:49 66 104/56 L 07/31/24 07:30 97.7 F 64 16 92/50 L 94/47 L 97 Room Air Laboratory Results CBC and INR reviewed PG Care Time/CCT Total # of Minutes Spent Total Time Spent with Patient: Total time spent is greater than 50% in coordination of care (as documented) at patient's floor/unit and/or counseling patient: Coding Level of Care Code 35132 SUB INP/OBS CARE 2/35MIN Diagnoses Acute upper GI bleeding K92.2 Acute blood loss anemia D62 H/O mitral valve replacement with mechanical valve Z95.2 Hx of aortic valve replacement, mechanical Z95.2
[2024-08-01 06:47] LABS: Hematocrit (blood only) 24.7 % (37.0-47.0); Hemoglobin 8.2 g/dl (12.0-16.0); Mean Corpuscular Hemoglobin 30.7 pg (25.0-34.0); Mean Corpuscular Hgb Conc 33.2 g/dL (32.0-36.0); Mean Corpuscular Volume 92.5 fL (80.0-100.0); Mean Platelet Volume 11.2 fL (9.4-12.4); Platelet Count 165 K/uL (130-400); RDW Coefficient of Variation 17.3 % (11.5-14.5); RDW Standard Deviation 50.2 fL (36.4-46.3); Red Blood Count 2.67 M/uL (4.20-5.40); White Blood Count 8.61 K/ul (4.8-10.8)
[2024-08-01 07:31] LABS: ANTI-Xa, UFH(UnfractionatedHep 0.52 IU/ml (0.3-0.7); INR 1.8 (0.9-1.1); Prothrombin Time 18.2 Seconds (9.0-12.0)
[2024-08-01] MEDS: METOPROLOL SUCC 25MG EXT REL TAB PO SCH (08:57)
--- NOTE | 2024-08-01 14:13 | Hospitalist Progress Note ---
Date of Service August 01, 2024 Assessment & Plan (1) Acute upper GI bleeding: (2) Acute blood loss anemia: (3) H/O mitral valve replacement with mechanical valve: (4) Hx of aortic valve replacement, mechanical: Plan Magda is a 74 year old female with a PMHx of TIA, siezure like activity, hx of mechanical mitral and aortic valve, CKD, ankle sprain who presents to the ER with coffee-ground emesis for the last 48 hours with melena. Supratherapeutic INR on admission (6.7), reversed in the ED. EGD without source of bleeding. Hgb 5.6 on arrival - s/p 2units PRBCs and venofer x1. Hgb remained stable and was started on heparin drip for bridging to Coumadin which was resumed on 07/28. Baseline chronic anemia - B12/folate/TSH WNL. iron studies consistent with anemia of chronic disease #Acute GI bleed/ Acute blood loss anemia Consult gastroenterology - s/p EGD 07/26 without active signs of bleed. continue PPI, converted to p.o. Hgb 5.6 on arrival - s/p 2u PRBCs, Venofer x 1. hgb rising 8.2 No signs of active GI bleeding On ASA for hx of stroke like symptoms - this is held PT/ OT recommending Home with and 07/01 support. #Constipation -moved bowels on 08/01. Continue miralax, Senna. Encourage ambulation. #Hx of Mitral and Atrial Valve replacement/ Hx of stroke Reason for Coumadin (goal 2.5-3.5). Follows with Coumadin clinic. Continue heparin drip until Coumadin therapeutic. Coumadin resumed 07/28 INR 1.8, AM INR #HTN Now with hypotension - but asymptomatic. Patient reports she does not cook with a lot of salt but diet upgraded to regular to mimic home environment. lisinopril resumed. Amlodipine held with hypotension Decreased metoprolol to once daily Pt remains asymptomatic with lower BPs #SVT Concerns for afib during EGD, but not documented on EKG. Cardiology consulted - did not appear as afib possible SVT vs flutter. Regardless will be anticoagulated with artificial valves. Already on metoprolol. Consider 30-day monitor. Echo showing left to right shunt - cardiology recommending outpatient follow up #Left Ankle Sprain Follows with podiatry, Dr. Lam Partial weightbearing to left foot, frequent ice PT/OT #CKD - Cr at baseline. Avoid nephrotoxins. Likely contributing to her chronic anemia #Hyperkalemia -Received Calcium gluconate, insulin/dextrose - now resolved. #Seizures - continue keppra #mental health - continue celexa #hypothyroid - continue Synthroid, TSH WNL #Gout - continue allopurinol Dispo: continued inpatient stay bridging to Coumadin DVT proph: low dose heparin drip/ Coumadin family updated at bedside 07/27 Admission and Anticipated Discharge Date Admission Date: July 26, 2024 Supervising Physician Co-Signing Physician Notes PA Supervision Note: I did not personally see or examine the patient today, but I verified all cole points of JOSE Galindo's assessment and plan with the following exceptions/additions: None Subjective patient seen lying in bed, feeling better today. Still feels a little bit bloated, agreeable to simethicone. Drinking her MiraLAX this morning. Did have a brown moderate-sized bowel movement yesterday. No signs of GI bleeding Review of Systems Review of Systems: All systems reviewed & are unremarkable except as noted in Subjective Physical Exam Physical Exam: General: NAD, VS as above, lying in bed, appears well Resp: normal respiratory effort, lungs clear to auscultation CV: RRR, no murmur, Abd: normal bowel sounds, nondistended, soft, nontender to palpation Extremities: Moves all extremities, no edema Neuro: A&O x3, Results & Data Results & Data Vital Signs (Past 12 Hours) Vital Signs Temp Pulse Resp BP Pulse Ox O2 Del Method 08/01/24 08:53 84 103/54 L 08/01/24 07:23 98.8 F 87 16 112/45 L 95 Room Air Laboratory Results CBC reviewed INR reviewed PG Care Time/CCT Total # of Minutes Spent Total Time Spent with Patient: Total time spent is greater than 50% in coordination of care (as documented) at patient's floor/unit and/or counseling patient: Coding Level of Care Code 96829 SUB INP/OBS CARE 235MIN Diagnoses Acute upper GI bleeding K92.2 Acute blood loss anemia D62 H/O mitral valve replacement with mechanical valve Z95.2 Hx of aortic valve replacement, mechanical Z95.2
[2024-08-02 07:14] LABS: ANTI-Xa, UFH(UnfractionatedHep 0.36 IU/ml (0.3-0.7); INR 1.8 (0.9-1.1); Prothrombin Time 18.3 Seconds (9.0-12.0)
[2024-08-02] MEDS: bisacodyL 5 MG TABEC PO ONE (13:04)
--- NOTE | 2024-08-02 16:09 | XRay Report ---
EXAMINATION: X-ray KUB/abdomen 1 view CLINICAL HISTORY: Abdominal distention PRIORS: 07/28/2024 TECHNIQUE: Single frontal view abdomen FINDINGS: Overlying bowel gas and stool obscures fine bone detail. A right total hip arthroplasty present. Postsurgical change of the lumbar spine noted with surgical clips in the left lower quadrant. A small amount of formed stool present throughout the colon. No dilated loops of bowel. No air-fluid levels. No acute osseous abnormality. IMPRESSION: Small amount of formed stool throughout the colon with nondilated, nonobstructed bowel gas pattern Electronically signed by Cathleen Lopez 08-02-2024 4:09 PM
[2024-08-02] MEDS: WARFARIN SOD 2 MG TAB PO SCH (16:22)
[2024-08-02] MEDS: SOD PHOSPHATE/SOD BIPHOSPHATE ENEMA 132 ML BTL PR STA (16:25)
--- NOTE | 2024-08-02 16:47 | Hospitalist Progress Note ---
Date of Service August 02, 2024 Assessment & Plan (1) Acute upper GI bleeding: (2) Acute blood loss anemia: (3) H/O mitral valve replacement with mechanical valve: (4) Hx of aortic valve replacement, mechanical: Jorge Man is a 74 year old female with a PMHx of TIA, siezure like activity, hx of mechanical mitral and aortic valve, CKD, ankle sprain who presents to the ER with coffee-ground emesis for the last 48 hours with melena. Supratherapeutic INR on admission (6.7), reversed in the ED. EGD without source of bleeding. Hgb 5.6 on arrival - s/p 2units PRBCs and venofer x1. Hgb remained stable and was started on heparin drip for bridging to Coumadin which was resumed on 07/28. Baseline chronic anemia - B12/folate/TSH WNL. iron studies consistent with anemia of chronic disease #Acute GI bleed/ Acute blood loss anemia Consult gastroenterology - s/p EGD 07/26 without active signs of bleed. continue PPI, converted to p.o. Hgb 5.6 on arrival - s/p 2u PRBCs, Venofer x 1. hgb rising 8.2 No signs of active GI bleeding On ASA for hx of stroke like symptoms - this is held PT/ OT recommending Home with and 07/01 support. #Constipation -moved bowels on 08/01. Continue miralax, Senna. More bloated today with pain, KUB without obstruction. Enema given. #Hx of Mitral and Atrial Valve replacement/ Hx of stroke Reason for Coumadin (goal 2.5-3.5). Follows with Coumadin clinic. Continue heparin drip until Coumadin therapeutic. Coumadin resumed 07/28 INR 1.8, AM INR Coumadin 2mg given today even though normally on Sundays she does not take that dose. #HTN Now with hypotension - but asymptomatic. Patient reports she does not cook with a lot of salt but diet upgraded to regular to mimic home environment. lisinopril resumed. Amlodipine held with hypotension Decreased metoprolol to once daily Pt remains asymptomatic with lower BPs #SVT Concerns for afib during EGD, but not documented on EKG. Cardiology consulted - did not appear as afib possible SVT vs flutter. Regardless will be anticoagulated with artificial valves. Already on metoprolol. Consider 30-day monitor. Echo showing left to right shunt - cardiology recommending outpatient follow up #Left Ankle Sprain Follows with podiatry, Dr. Lam Partial weightbearing to left foot, frequent ice PT/OT #CKD - Cr at baseline. Avoid nephrotoxins. Likely contributing to her chronic anemia #Hyperkalemia -Received Calcium gluconate, insulin/dextrose - now resolved. #Seizures - continue keppra #mental health - continue celexa #hypothyroid - continue Synthroid, TSH WNL #Gout - continue allopurinol Dispo: continued inpatient stay bridging to Coumadin DVT proph: low dose heparin drip/ Coumadin family updated at bedside 07/27 & 08/02 Admission and Anticipated Discharge Date Admission Date: July 26, 2024 Supervising Physician Co-Signing Physician Notes PA Supervision Note: I did not personally see or examine the patient today, but I verified all cole points of JOSE Galindo's assessment and plan with the following exceptions/additions: None Subjective Sitting up in the chair, present at bedside. feeling more bloated today, mild RUQ Pain. No BM today most of her pain is in her ankle Review of Systems Review of Systems: All systems reviewed & are unremarkable except as noted in Subjective Physical Exam Physical Exam: General: NAD, VS as above, sitting up in bed appears well Resp: normal respiratory effort, lungs clear to auscultation CV: RRR, no murmur, Abd: normal bowel sounds, more distended than prior, mild RLQ tenderness Extremities: Moves all extremities, no edema Neuro: A&O x3, Results & Data Results & Data Vital Signs (Past 12 Hours) Vital Signs Temp Pulse Resp BP BP Pulse Ox O2 Del Method 08/02/24 14:46 98.8 F 90 16 114/64 94 Room Air 08/02/24 08:27 73 114/58 L 08/02/24 07:16 98.2 F 69 16 120/66 99 Room Air Laboratory Results INR reviewed PG Care Time/CCT Total # of Minutes Spent Total Time Spent with Patient: Total time spent is greater than 50% in coordination of care (as documented) at patient's floor/unit and/or counseling patient: Coding Level of Care Code 74001 SUB INP/OBS CARE 2/35MIN Diagnoses Acute upper GI bleeding K92.2 Acute blood loss anemia D62 H/O mitral valve replacement with mechanical valve Z95.2 Hx of aortic valve replacement, mechanical Z95.2
[2024-08-03 08:24] LABS: ANTI-Xa, UFH(UnfractionatedHep 0.31 IU/ml (0.3-0.7); Prothrombin Time 20.1 Seconds (9.0-12.0)
--- NOTE | 2024-08-03 10:49 | Hospitalist Progress Note ---
Date of Service August 03, 2024 Assessment & Plan (1) Acute upper GI bleeding: (2) Acute blood loss anemia: (3) H/O mitral valve replacement with mechanical valve: (4) Hx of aortic valve replacement, mechanical: Plan Magda is a 74 year old female with a PMHx of TIA, siezure like activity, hx of mechanical mitral and aortic valve, CKD, ankle sprain who presents to the ER with coffee-ground emesis for the last 48 hours with melena. Supratherapeutic INR on admission (6.7), reversed in the ED. EGD without source of bleeding. Hgb 5.6 on arrival - s/p 2units PRBCs and venofer x1. Hgb remained stable and was started on heparin drip for bridging to Coumadin which was resumed on 07/28. Baseline chronic anemia - B12/folate/TSH WNL. iron studies consistent with anemia of chronic disease #Acute GI bleed/ Acute blood loss anemia Consult gastroenterology - s/p EGD 07/26 without active signs of bleed. continue PPI, converted to p.o. Hgb 5.6 on arrival - s/p 2u PRBCs, Venofer x 1. hgb rising 8.2 No signs of active GI bleeding On ASA for hx of stroke like symptoms - this is held PT/ OT recommending Home with and 07/01 support. #Constipation - Continue miralax, Senna. Less bloated today, enema given 08/03 #Hx of Mitral and Atrial Valve replacement/ Hx of stroke Reason for Coumadin (goal 2.5-3.5). Follows with Coumadin clinic. Continue heparin drip until Coumadin therapeutic. Coumadin resumed 07/28 INR 2.0, AM INR #HTN Now with hypotension - but asymptomatic. Patient reports she does not cook with a lot of salt but diet upgraded to regular to mimic home environment. lisinopril resumed. Amlodipine held with hypotension Decreased metoprolol to once daily Pt remains asymptomatic with lower BPs #SVT Concerns for afib during EGD, but not documented on EKG. Cardiology consulted - did not appear as afib possible SVT vs flutter. Regardless will be anticoagulated with artificial valves. Already on metoprolol. Consider 30-day monitor. Echo showing left to right shunt - cardiology recommending outpatient follow up #Left Ankle Sprain Follows with podiatry, Dr. Lam Partial weightbearing to left foot, frequent ice PT/OT #CKD - Cr at baseline. Avoid nephrotoxins. Likely contributing to her chronic anemia #Hyperkalemia -Received Calcium gluconate, insulin/dextrose - now resolved. #Seizures - continue keppra #mental health - continue celexa #hypothyroid - continue Synthroid, TSH WNL #Gout - continue allopurinol Dispo: continued inpatient stay bridging to Coumadin DVT proph: low dose heparin drip/ Coumadin family updated at bedside 07/27 & 08/02 Admission and Anticipated Discharge Date Admission Date: July 26, 2024 Subjective lying in bed, more tired today reports small amount of stool after enema still with some RLQ pain but improved less distended today appetite is okay Review of Systems Review of Systems: All systems reviewed & are unremarkable except as noted in Subjective Physical Exam Physical Exam: General: NAD, VS as above, sitting up in bed appears well Resp: normal respiratory effort, lungs clear to auscultation CV: RRR, no murmur, Abd: normal bowel sounds, less distended today, nontender Extremities: Moves all extremities, no edema Neuro: A&O x3, Results & Data Results & Data Vital Signs (Past 12 Hours) Vital Signs Temp Pulse Resp BP BP Pulse Ox O2 Del Method 08/03/24 09:34 94/53 L 95/54 L 08/03/24 07:15 98.6 F 70 18 92/43 L 97 Room Air Laboratory Results INR reviewed PG Care Time/CCT Total # of Minutes Spent Total Time Spent with Patient: Total time spent is greater than 50% in coordination of care (as documented) at patient's floor/unit and/or counseling patient: Coding Level of Care Code 54691 SUB INP/OBS CARE 235MIN Diagnoses Acute upper GI bleeding K92.2 Acute blood loss anemia D62 H/O mitral valve replacement with mechanical valve Z95.2 Hx of aortic valve replacement, mechanical Z95.2
[2024-08-03] MEDS: traMADol HCL 50 MG TABLET PO PRN (18:26)
[2024-08-04 06:22] LABS: ANTI-Xa, UFH(UnfractionatedHep 0.27 IU/ml (0.3-0.7)
[2024-08-04 07:04] LABS: INR 2.1 (0.9-1.1); Prothrombin Time 21.4 Seconds (9.0-12.0)
[2024-08-04 12:41] LABS: ANTI-Xa, UFH(UnfractionatedHep 0.31 IU/ml (0.3-0.7)
[2024-08-04] MEDS: FOLIC ACID 1 MG TAB PO STA (12:49)
--- NOTE | 2024-08-04 14:08 | Hospitalist Progress Note ---
Date of Service August 04, 2024 Assessment & Plan (1) Acute upper GI bleeding: (2) Acute blood loss anemia: (3) H/O mitral valve replacement with mechanical valve: (4) Hx of aortic valve replacement, mechanical: Jorge Man is a 74 year old female with a PMHx of TIA, siezure like activity, hx of mechanical mitral and aortic valve, CKD, ankle sprain who presents to the ER with coffee-ground emesis for the last 48 hours with melena. Supratherapeutic INR on admission (6.7), reversed in the ED. EGD without source of bleeding. Hgb 5.6 on arrival - s/p 2units PRBCs and venofer x1. Hgb remained stable and was started on heparin drip for bridging to Coumadin which was resumed on 07/28. Baseline chronic anemia - B12/folate/TSH WNL. iron studies consistent with anemia of chronic disease #Acute GI bleed/ Acute blood loss anemia Consult gastroenterology - s/p EGD 07/26 without active signs of bleed. continue PPI, converted to p.o. Hgb 5.6 on arrival - s/p 2u PRBCs, Venofer x 1. hgb rising 8.2 No signs of active GI bleeding On ASA for hx of stroke like symptoms - this is held PT/ OT recommending Home with and 07/01 support. #Constipation Increased Miralax to BID.Continue Senna. enema given 08/03 KUB 08/03 w/ small amount of stool visualized. No obstruction. #Hx of Mitral and Atrial Valve replacement/ Hx of stroke Reason for Coumadin (goal 2.5-3.5). Follows with Coumadin clinic. Continue heparin drip until Coumadin therapeutic. Coumadin resumed 07/28 INR 2.1, AM INR #HTN Now with hypotension - but asymptomatic. Patient reports she does not cook with a lot of salt but diet upgraded to regular to mimic home environment. lisinopril resumed. Amlodipine held with hypotension Decreased metoprolol to once daily Pt remains asymptomatic with lower BPs #SVT Concerns for afib during EGD, but not documented on EKG. Cardiology consulted - did not appear as afib possible SVT vs flutter. Regardless will be anticoagulated with artificial valves. Already on metoprolol. Consider 30-day monitor. Echo showing left to right shunt - cardiology recommending outpatient follow up #Left Ankle Sprain Follows with podiatry, Dr. Lam Partial weightbearing to left foot, frequent ice PT/OT #CKD - Cr at baseline. Avoid nephrotoxins. Likely contributing to her chronic anemia #Hyperkalemia -Received Calcium gluconate, insulin/dextrose - now resolved. Chronic conditions: Seizures: Keppra Mental Health: Celexa Hypothyroidism: Synthroid Gout: Allopurinol Dispo: continued inpatient stay bridging to Coumadin DVT proph: low dose heparin drip/ Coumadin Admission and Anticipated Discharge Date Admission Date: July 26, 2024 Subjective Patient seen and examined this morning. patient reports some abdominal discomfort this morning. She reports that she has not had a significant bowel movement since her hospital stay. She was able to produce small bowel movement after an enema but feels she needs to have a BM to feel better. Physical Exam Constitutional: WD/WN, vitals as above Eyes: PERRL, conjunctivae normal, anicteric sclerae Respiratory: breathing unlabored Cardiovascular: well perfused Psychiatric: A+Ox3, euthymic affect Results & Data Results & Data Vital Signs (Past 12 Hours) Vital Signs Temp Pulse Resp BP Pulse Ox O2 Del Method 08/04/24 07:56 36.7 C 83 14 93/52 L 94 Room Air PG Care Time/CCT Total # of Minutes Spent Total Time Spent with Patient: Total time spent is greater than 50% in coordination of care (as documented) at patient's floor/unit and/or counseling patient: Coding Level of Care Code 89613 SUB INP/OBS CARE 2/35MIN Diagnoses Acute upper GI bleeding K92.2 Acute blood loss anemia D62 H/O mitral valve replacement with mechanical valve Z95.2 Hx of aortic valve replacement, mechanical Z95.2
[2024-08-04] MEDS: POLYETHYLENE (MIRALAX) 17 GM PACK PO SCH (20:38)
[2024-08-05 07:53] LABS: Hematocrit (blood only) 23.8 % (37.0-47.0); Hemoglobin 7.8 g/dl (12.0-16.0); Mean Corpuscular Hemoglobin 30.8 pg (25.0-34.0); Mean Corpuscular Hgb Conc 32.8 g/dL (32.0-36.0); Mean Corpuscular Volume 94.1 fL (80.0-100.0); Mean Platelet Volume 11.3 fL (9.4-12.4); Platelet Count 171 K/uL (130-400); RDW Coefficient of Variation 18.4 % (11.5-14.5); RDW Standard Deviation 60.8 fL (36.4-46.3); Red Blood Count 2.53 M/uL (4.20-5.40); White Blood Count 5.72 K/ul (4.8-10.8)
[2024-08-05 08:00] LABS: ANTI-Xa, UFH(UnfractionatedHep 0.38 IU/ml (0.3-0.7); Prothrombin Time 20.1 Seconds (9.0-12.0)
[2024-08-05 08:09] LABS: BUN Creatinine Ratio 16.7 (10-20); Calcium 8.5 mg/dl (8.6-10.3); Creatinine Clr Calc Pharmacy 14.8 ml/min; Potassium 4.3 mmol/L (3.5-5.1)
[2024-08-05] MEDS: FOLIC ACID 1 MG TAB PO SCH (10:27)
[2024-08-05] MEDS: WARFARIN SOD 4 MG TAB PO ONE (10:27)
[2024-08-05] MEDS ORDERED: WARFARIN SOD 2.5 MG TAB PO SCH (12:00)
--- NOTE | 2024-08-05 16:52 | Hospitalist Progress Note ---
Date of Service August 05, 2024 Assessment & Plan (1) Acute upper GI bleeding: (2) Acute blood loss anemia: (3) H/O mitral valve replacement with mechanical valve: (4) Hx of aortic valve replacement, mechanical: Plan Magda is a 74 year old female with a PMHx of TIA, siezure like activity, hx of mechanical mitral and aortic valve, CKD, ankle sprain who presents to the ER with coffee-ground emesis for the last 48 hours with melena. Supratherapeutic INR on admission (6.7), reversed in the ED. EGD without source of bleeding. Hgb 5.6 on arrival - s/p 2units PRBCs and venofer x1. Hgb remained stable and was started on heparin drip for bridging to Coumadin which was resumed on 07/28. Baseline chronic anemia - B12/folate/TSH WNL. iron studies consistent with anemia of chronic disease #Acute GI bleed/ Acute blood loss anemia Consult gastroenterology - s/p EGD 07/26 without active signs of bleed. continue PPI Hgb 5.6 on arrival - s/p 2u PRBCs, Venofer x 1. No signs of active GI bleeding Hgb stable at 7.8, recheck every other day On ASA for hx of stroke like symptoms - this is held PT/ OT recommending Home with and 07/01 support. #Constipation Increased Miralax to BID.Continue Senna. enema given 08/03 KUB 08/03 w/ small amount of stool visualized. No obstruction. #Hx of Mitral and Atrial Valve replacement/ Hx of stroke Reason for Coumadin (goal 2.5-3.5). Follows with Coumadin clinic. Continue heparin drip until Coumadin therapeutic. Coumadin resumed 07/28 INR 2.[address] Blankenship 08/05 due to patient's INR not being in therapeutic range after resuming Coumadin 8 days ago - s/p 4mg PO Coumadin given. Recheck INR in AM. #HTN Now with hypotension - but asymptomatic. Patient reports she does not cook with a lot of salt but diet upgraded to regular to mimic home environment. Amlodipine held with hypotension Lisinopril held due to rising creatinine - may consider discontinuing medication due to persistent hypotension/normotension upon discharge. Decreased metoprolol to once daily Pt remains asymptomatic with lower BPs #SVT Concerns for afib during EGD, but not documented on EKG. Cardiology consulted - did not appear as afib possible SVT vs flutter. Regardless will be anticoagulated with artificial valves. Already on metoprolol. Consider 30-day monitor. Echo showing left to right shunt - cardiology recommending outpatient follow up #Left Ankle Sprain Follows with podiatry, Dr. Lam Partial weightbearing to left foot, frequent ice PT/OT Reached out to Dr. Lam 08/05 - recs include: weight bear as tolerated in boot w/ walker. OT eval weight bearing. While resting in bed go through ROM exercises w/ ankle. Circles and go through alphabet. Can resume formal therapy on discharge. Will likely be slow to recover but pain should start to subside in 2- 3 weeks w/ continued therapy. - will forward this to PT/OT in AM as well. #CKD Cr slightly above baseline at 2.64. Avoid nephrotoxins. Hold Lisinopril Check BMP every other day #Hyperkalemia -Received Calcium gluconate, insulin/dextrose - now resolved. Chronic conditions: Seizures: Keppra Mental Health: Celexa Hypothyroidism: Synthroid Gout: Allopurinol Dispo: continued inpatient stay bridging to Coumadin DVT proph: low dose heparin drip/ Coumadin Updated at bedside 08/05. Admission and Anticipated Discharge Date Admission Date: July 26, 2024 Subjective Patient seen and examined this morning. Patient reports no BM thus far. She denies any abdominal pain. Reports no additional complaints. seen at bedside - he is inquiring about her left foot as she has missed two appointments with podiatry due to being hospitalized. Physical Exam Constitutional: WD/WN, vitals as above Eyes: PERRL, conjunctivae normal, anicteric sclerae Respiratory: breathing unlabored Cardiovascular: well perfused Gastrointestinal (Abdomen): +BS, no tenderness to palpation Psychiatric: A+Ox3, euthymic affect Results & Data Results & Data Vital Signs (Past 12 Hours) Vital Signs Temp Pulse Resp BP BP Pulse Ox O2 Del Method 08/05/24 16:43 37.2 C 66 18 108/60 93 Room Air 08/05/24 11:13 Room Air 08/05/24 07:33 36.8 C 79 18 94/55 L 96 Room Air PG Care Time/CCT Total # of Minutes Spent Total Time Spent with Patient: Total time spent is greater than 50% in coordination of care (as documented) at patient's floor/unit and/or counseling patient: Coding Level of Care Code 34423 SUB INP/OBS CARE 3/50MIN Diagnoses Acute upper GI bleeding K92.2 Acute blood loss anemia D62 H/O mitral valve replacement with mechanical valve Z95.2 Hx of aortic valve replacement, mechanical Z95.2
[2024-08-06 08:37] LABS: Basophils # (auto) 0.02 K/uL (0.00-0.20); Basophils % (auto) 0.3 %; Eosinophils # (auto) 0.23 K/uL (0.00-0.50); Eosinophils % (auto) 3.9 %; Hematocrit (blood only) 26.6 % (37.0-47.0); Hemoglobin 8.6 g/dl (12.0-16.0); Immature Granulocytes # (auto) 0.06 K/uL (0.01-0.20); Lymphocytes # (auto) 0.97 K/uL (1.20-3.40); Lymphocytes % (auto) 16.5 %; Mean Corpuscular Hemoglobin 30.3 pg (25.0-34.0); Mean Corpuscular Hgb Conc 32.3 g/dL (32.0-36.0); Mean Corpuscular Volume 93.7 fL (80.0-100.0); Mean Platelet Volume 10.8 fL (9.4-12.4); Monocytes # (auto) 1.07 K/uL (0.11-0.59); Monocytes % (auto) 18.2 %; Neutrophils # (auto) 3.52 K/uL (1.40-6.50); Neutrophils % (auto) 60.1 %; Platelet Count 187 K/uL (130-400); RDW Coefficient of Variation 18.5 % (11.5-14.5); RDW Standard Deviation 61.1 fL (36.4-46.3); Red Blood Count 2.84 M/uL (4.20-5.40); White Blood Count 5.87 K/ul (4.8-10.8)
[2024-08-06 08:59] LABS: ANTI-Xa, UFH(UnfractionatedHep 0.39 IU/ml (0.3-0.7); INR 2.3 (0.9-1.1); Prothrombin Time 22.8 Seconds (9.0-12.0)
[2024-08-06 09:01] LABS: BUN Creatinine Ratio 18.3 (10-20); Creatinine Clr Calc Pharmacy 16.6 ml/min; Potassium 4.2 mmol/L (3.5-5.1)
[2024-08-06] MEDS: WARFARIN SOD 3 MG TAB PO STA (10:13)
--- NOTE | 2024-08-06 15:22 | Hospitalist Progress Note ---
Date of Service August 06, 2024 Assessment & Plan (1) Acute upper GI bleeding: (2) Acute blood loss anemia: (3) H/O mitral valve replacement with mechanical valve: (4) Hx of aortic valve replacement, mechanical: Plan Magda is a 74 year old female with a PMHx of TIA, siezure like activity, hx of mechanical mitral and aortic valve, CKD, ankle sprain who presents to the ER with coffee-ground emesis for the last 48 hours with melena. Supratherapeutic INR on admission (6.7), reversed in the ED. EGD without source of bleeding. Hgb 5.6 on arrival - s/p 2units PRBCs and venofer x1. Hgb remained stable and was started on heparin drip for bridging to Coumadin which was resumed on 07/28. Baseline chronic anemia - B12/folate/TSH WNL. iron studies consistent with anemia of chronic disease #Acute GI bleed/ Acute blood loss anemia Consult gastroenterology - s/p EGD 07/26 without active signs of bleed. continue PPI Hgb 5.6 on arrival - s/p 2u PRBCs, Venofer x 1. No signs of active GI bleeding Hgb stable at 8.6, recheck every other day On ASA for hx of stroke like symptoms - this is held PT/ OT recommending Home with and 07/01 support. #Constipation Increased Miralax to BID.Continue Senna. enema given 08/03 KUB 08/03 w/ small amount of stool visualized. No obstruction. If no BM by 08/07, will repeat KUB Encourage ambulation as much as possible. #Hx of Mitral and Atrial Valve replacement/ Hx of stroke Reason for Coumadin (goal 2.5-3.5). Follows with Coumadin clinic. Continue heparin drip until Coumadin therapeutic. Coumadin resumed 07/28 INR 2.[address] Blankenship 08/06 s/p 3mg given 08/06, recheck in AM. #HTN Now with hypotension - but asymptomatic. Patient reports she does not cook with a lot of salt but diet upgraded to regular to mimic home environment. Amlodipine held with hypotension, Lisinopril d/c Decreased metoprolol to once daily Pt remains asymptomatic with lower BPs #SVT Concerns for A-fib during EGD, but not documented on EKG. Cardiology consulted - did not appear as afib possible SVT vs flutter. Regardless will be anticoagulated with artificial valves. Already on metoprolol. Consider 30-day monitor. Echo showing left to right shunt - cardiology recommending outpatient follow up #Left Ankle Sprain Reached out to Dr. Lam 08/05 - recs include: weight bear as tolerated in boot w/ walker. OT eval weight bearing. While resting in bed go through ROM exercises w/ ankle. Circles and go through alphabet. Can resume formal therapy on discharge. Will likely be slow to recover but pain should start to subside in 2- 3 weeks w/ continued therapy Discussed podiatry recommendations w/ PT 08/06. #CKD Cr slightly above baseline at 2.35. Avoid nephrotoxins Lisinopril discontinued. Check BMP every other day #Hyperkalemia -Received Calcium gluconate, insulin/dextrose - now resolved. Chronic conditions: Seizures: Keppra Mental Health: Celexa Hypothyroidism: Synthroid Gout: Allopurinol Dispo: continued inpatient stay bridging to Coumadin DVT proph: low dose heparin drip/ Coumadin Admission and Anticipated Discharge Date Admission Date: July 26, 2024 Subjective Patient seen and examined this morning. Patient reports she has not had a BM yet. Reports she is passing gas and denies abdominal pain. Denies any additional complaints. Physical Exam Constitutional: WD/WN, vitals as above Eyes: PERRL, conjunctivae normal, anicteric sclerae Respiratory: breathing unlabored Cardiovascular: well perfused Gastrointestinal (Abdomen): +BS, no tenderness to palpation Psychiatric: A+Ox3, euthymic affect Results & Data Results & Data Vital Signs (Past 12 Hours) Vital Signs Temp Pulse Resp BP BP Pulse Ox O2 Del Method 08/06/24 14:04 37.2 C 82 18 101/62 94 Room Air 08/06/24 11:52 92/53 L 08/06/24 11:24 36.9 C 81 16 88/44 L 95 Room Air 08/06/24 07:57 36.7 C 72 16 99/59 L 94 Room Air PG Care Time/CCT Total # of Minutes Spent Total Time Spent with Patient: Total time spent is greater than 50% in coordination of care (as documented) at patient's floor/unit and/or counseling patient: Coding Level of Care Code 91491 SUB INP/OBS CARE 3/50MIN Diagnoses Acute upper GI bleeding K92.2 Acute blood loss anemia D62 H/O mitral valve replacement with mechanical valve Z95.2 Hx of aortic valve replacement, mechanical Z95.2
[2024-08-07 10:35] LABS: ANTI-Xa, UFH(UnfractionatedHep 0.37 IU/ml (0.3-0.7); INR 2.7 (0.9-1.1); Prothrombin Time 26.8 Seconds (9.0-12.0)
[2024-08-07] MEDS: WARFARIN SOD 2 MG TAB PO SCH (16:21)
--- NOTE | 2024-08-07 16:27 | Hospitalist Progress Note ---
Date of Service August 07, 2024 Assessment & Plan (1) Acute upper GI bleeding: (2) Acute blood loss anemia: (3) H/O mitral valve replacement with mechanical valve: (4) Hx of aortic valve replacement, mechanical: Plan Magda is a 74 year old female with a PMHx of TIA, siezure like activity, hx of mechanical mitral and aortic valve, CKD, ankle sprain who presents to the ER with coffee-ground emesis for the last 48 hours with melena. Supratherapeutic INR on admission (6.7), reversed in the ED. EGD without source of bleeding. Hgb 5.6 on arrival - s/p 2units PRBCs and venofer x1. Hgb remained stable and was started on heparin drip for bridging to Coumadin which was resumed on 07/28. Baseline chronic anemia - B12/folate/TSH WNL. iron studies consistent with anemia of chronic disease #Acute GI bleed/ Acute blood loss anemia Consult gastroenterology - s/p EGD 07/26 without active signs of bleed. continue PPI Hgb 5.6 on arrival - s/p 2u PRBCs, Venofer x 1. No signs of active GI bleeding Hgb stable at 8.6, recheck every other day On ASA for hx of stroke like symptoms - this is held PT/ OT recommending Home with and 07/01 support. #Constipation Increased Miralax to BID.Continue Senna. enema given 08/03 KUB 08/03 w/ small amount of stool visualized. No obstruction. Encourage ambulation as much as possible. Patient w/ small BM, continue to monitor stools. #Hx of Mitral and Atrial Valve replacement/ Hx of stroke Reason for Coumadin (goal 2.5-3.5). Follows with Coumadin clinic. Continue heparin drip until Coumadin therapeutic. Coumadin resumed 07/28 INR 2.7 Resumed typical Coumadin dosing 08/07. Repeat INR in AM if INR > 2.5 in AM, heparin drip may be stopped and she can be discharged home. #HTN Now with hypotension - but asymptomatic. Patient reports she does not cook with a lot of salt but diet upgraded to regular to mimic home environment. Amlodipine held with hypotension, Lisinopril d/c Consider discontinuing amlodipine on discharge as BP's have been low to normal thus far. Decreased metoprolol to once daily Pt remains asymptomatic with lower BPs #SVT Concerns for A-fib during EGD, but not documented on EKG. Cardiology consulted - did not appear as afib possible SVT vs flutter. Regardless will be anticoagulated with artificial valves. Already on metoprolol. Consider 30-day monitor. Echo showing left to right shunt - cardiology recommending outpatient follow up #Left Ankle Sprain Reached out to Dr. Lam 08/05 - recs include: weight bear as tolerated in boot w/ walker. OT eval weight bearing. While resting in bed go through ROM exercises w/ ankle. Circles and go through alphabet. Can resume formal therapy on discharge. Will likely be slow to recover but pain should start to subside in 2- 3 weeks w/ continued therapy Discussed podiatry recommendations w/ PT 08/06. #CKD Cr slightly above baseline at 2.35. Avoid nephrotoxins Lisinopril discontinued. Check BMP every other day #Hyperkalemia -Received Calcium gluconate, insulin/dextrose - now resolved. Chronic conditions: Seizures: Keppra Mental Health: Celexa Hypothyroidism: Synthroid Gout: Allopurinol Dispo: continued inpatient stay bridging to Coumadin DVT proph: low dose heparin drip/ Coumadin Anticipate discharge home 08/08. Admission and Anticipated Discharge Date Admission Date: July 26, 2024 Subjective Patient seen and examined. Patient reports that she did pass a small amount of stool and continues to pass gas. She reports occassional abdominal discomfort. Physical Exam Constitutional: WD/WN, vitals as above Eyes: PERRL, conjunctivae normal, anicteric sclerae Respiratory: breathing unlabored Cardiovascular: well perfused Gastrointestinal (Abdomen): +BS, no tenderness to palpation Psychiatric: A+Ox3, euthymic affect Results & Data Results & Data Vital Signs (Past 12 Hours) Vital Signs Temp Pulse Resp BP Pulse Ox O2 Del Method 08/07/24 15:18 36.3 C L 61 16 105/67 93 Room Air 08/07/24 08:35 108/56 L 08/07/24 07:15 36.7 C 77 15 90/48 L 92 Room Air PG Care Time/CCT Total # of Minutes Spent Total Time Spent with Patient: Total time spent is greater than 50% in coordination of care (as documented) at patient's floor/unit and/or counseling patient: Coding Level of Care Code 08593 SUB INP/OBS CARE 235MIN Diagnoses Acute upper GI bleeding K92.2 Acute blood loss anemia D62 H/O mitral valve replacement with mechanical valve Z95.2 Hx of aortic valve replacement, mechanical Z95.2
[2024-08-08 07:40] LABS: Basophils # (auto) 0.02 K/uL (0.00-0.20); Basophils % (auto) 0.4 %; Eosinophils # (auto) 0.19 K/uL (0.00-0.50); Eosinophils % (auto) 3.5 %; Hematocrit (blood only) 23.9 % (37.0-47.0); Hemoglobin 7.9 g/dl (12.0-16.0); Immature Granulocytes # (auto) 0.04 K/uL (0.01-0.20); Immature Granulocytes % (auto) 0.7 %; Lymphocytes # (auto) 0.62 K/uL (1.20-3.40); Lymphocytes % (auto) 11.4 %; Mean Corpuscular Hemoglobin 31.1 pg (25.0-34.0); Mean Corpuscular Hgb Conc 33.1 g/dL (32.0-36.0); Mean Corpuscular Volume 94.1 fL (80.0-100.0); Mean Platelet Volume 10.8 fL (9.4-12.4); Monocytes # (auto) 0.84 K/uL (0.11-0.59); Monocytes % (auto) 15.4 %; Neutrophils # (auto) 3.75 K/uL (1.40-6.50); Neutrophils % (auto) 68.6 %; Platelet Count 185 K/uL (130-400); RDW Coefficient of Variation 17.7 % (11.5-14.5); RDW Standard Deviation 60.5 fL (36.4-46.3); Red Blood Count 2.54 M/uL (4.20-5.40); White Blood Count 5.46 K/ul (4.8-10.8)
[2024-08-08 07:54] LABS: BUN Creatinine Ratio 14.3 (10-20); Calcium 8.8 mg/dl (8.6-10.3); Creatinine Clr Calc Pharmacy 13.3 ml/min; Potassium 4.3 mmol/L (3.5-5.1)
[2024-08-08 08:04] LABS: ANTI-Xa, UFH(UnfractionatedHep 0.32 IU/ml (0.3-0.7); INR 2.6 (0.9-1.1); Prothrombin Time 26.1 Seconds (9.0-12.0)
[2024-08-08 08:07] LABS: Ovalocytes 1+; Polychromasia 1+; Tear Drop Cells 1+
[2024-08-08] MEDS: PROCHLORPERAZINE 5 MG in SYRINGE 4 ML IV PRN (13:32)
[2024-08-08] MEDS: bisacodyL 10 MG SUPP PR ONE (15:50)
--- NOTE | 2024-08-08 16:39 | Hospitalist Progress Note ---
<Statement entered by Yesi Fulton MD - 08/08/24 19:19> She has had two therapeutic INRs and heparin drip was stopped this morning. Has been relatively hypotensive throughout the admission and earlier this year - reduced BP meds. Date of Service August 08, 2024 Assessment & Plan (1) Acute upper GI bleeding: (2) Acute blood loss anemia: (3) H/O mitral valve replacement with mechanical valve: (4) Hx of aortic valve replacement, mechanical: Jorge Man is a 74 year old female with a PMHx of TIA, siezure like activity, hx of mechanical mitral and aortic valve, CKD, ankle sprain who presents to the ER with coffee-ground emesis for the last 48 hours with melena. Supratherapeutic INR on admission (6.7), reversed in the ED. EGD without source of bleeding. Hgb 5.6 on arrival - s/p 2units PRBCs and venofer x1. Hgb remained stable and was started on heparin drip for bridging to Coumadin which was resumed on 07/28. Baseline chronic anemia - B12/folate/TSH WNL. iron studies consistent with anemia of chronic disease #Acute GI bleed/ Acute blood loss anemia Consult gastroenterology - s/p EGD 07/26 without active signs of bleed. continue PPI Hgb 5.6 on arrival - s/p 2u PRBCs, Venofer x 1. No signs of active GI bleeding Hgb 7.9, recheck every other day On ASA for hx of stroke like symptoms - this is held PT/ OT recommending Home with and 07/01 support. #Constipation Increased Miralax to BID.Continue Senna. enema given 08/03. Ducolax suppository given 08/08 KUB 08/03 w/ small amount of stool visualized. No obstruction. Encourage ambulation as much as possible. Patient w/ small BM s/p suppository 08/08, continue to monitor stools. #Hx of Mitral and Atrial Valve replacement/ Hx of stroke Reason for Coumadin (goal 2.5-3.5). Follows with Coumadin clinic. Continue heparin drip until Coumadin therapeutic. Coumadin resumed 07/28. Will leave at outpatient dosing. INR 2.6 Resumed typical Coumadin dosing 08/07. Repeat INR in AM if INR > 2.5 in AM, she can be discharged home. #HTN Now with hypotension - but asymptomatic. Patient reports she does not cook with a lot of salt but diet upgraded to regular to mimic home environment. Amlodipine held with hypotension, Lisinopril d/c. Metoprolol and Imdur held today. d/c Imdur. For d/c, will cut AC and metoprolol in half. Pt remains asymptomatic with lower BPs #SVT Concerns for A-fib during EGD, but not documented on EKG. Cardiology consulted - did not appear as afib possible SVT vs flutter. Regardless will be anticoagulated with artificial valves. Already on metoprolol. Consider 30-day monitor. Echo showing left to right shunt - cardiology recommending outpatient follow up #Left Ankle Sprain Reached out to Dr. Hassan 08/05 - recs include: weight bear as tolerated in boot w/ walker. OT eval weight bearing. While resting in bed go through ROM exercises w/ ankle. Circles and go through alphabet. Can resume formal therapy on discharge. Will likely be slow to recover but pain should start to subside in 2- 3 weeks w/ continued therapy. Podiatry outpatient f/u if needed. Discussed podiatry recommendations w/ PT 08/06. #CKD Cr slightly above baseline at 2.93. Avoid nephrotoxins Lisinopril discontinued. Check BMP every other day #Hyperkalemia -Received Calcium gluconate, insulin/dextrose - now resolved. Chronic conditions: Seizures: Keppra Mental Health: Celexa Hypothyroidism: Synthroid Gout: Allopurinol Dispo: continued inpatient stay bridging to Coumadin DVT proph: Coumadin Anticipate discharge home 08/09. Admission and Anticipated Discharge Date Admission Date: July 26, 2024 Subjective Patient seen and examined. She reports occasional abdominal discomfort, states that this is nothing new. She does feel constipated. She also complains of nausea today, she is drinking Miralax during our visit. Review of Systems Constitutional: no fever and no chills Respiratory: no cough, no dyspnea on exertion and no hemoptysis Cardiovascular: no dyspnea Gastrointestinal: + nausea; no vomiting Genitourinary: no dysuria and no urinary frequency Integumentary: no rash Physical Exam Constitutional: WD/WN, vitals as above Respiratory: normal respiratory effort, lungs clear to auscultation Cardiovascular: Rate/Rhythm: regular rate and regular rhythm Gastrointestinal (Abdomen): normal bowel sounds, soft, nontender, no hepatosplenomegaly Skin: no rashes, warm and dry Psychiatric: A+Ox3, euthymic affect Results & Data Results & Data Vital Signs (Past 12 Hours) Vital Signs Temp Pulse Resp BP Pulse Ox O2 Del Method 08/08/24 15:36 37.2 C 71 16 106/53 L 94 Room Air 08/08/24 09:08 78 96/55 L 08/08/24 07:46 37.5 C 68 16 97/48 L 93 Room Air Laboratory Results 08/08/24 Range/Units 06:53 WBC 5.46 (4.8-10.8) K/ul RBC 2.54 L (4.20-5.40) M/uL Hgb 7.9 L (12.0-16.0) g/dl Hct 23.9 L (37.0-47.0) % MCV 94.1 (80.0-100.0) fL MCH 31.1 (25.0-34.0) pg MCHC 33.1 (32.0-36.0) g/dL RDW Std Deviation 60.5 H (36.4-46.3) fL RDW Coeff of Gisele 17.7 H (11.5-14.5) % Plt Count 185 (130-400) K/uL MPV 10.8 (9.4-12.4) fL Immature Gran % (Auto) 0.7 % Neut % (Auto) 68.6 % Lymph % (Auto) 11.4 % Ward % (Auto) 15.4 % Eos % (Auto) 3.5 % Baso % (Auto) 0.4 % Neut # (Auto) 3.75 (1.40-6.50) K/uL Lymph # (Auto) 0.62 L (1.20-3.40) K/uL Ward # (Auto) 0.84 H (0.11-0.59) K/uL Eos # (Auto) 0.19 (0.00-0.50) K/uL Baso # (Auto) 0.02 (0.00-0.20) K/uL Immature Gran # (Auto) 0.04 (0.01-0.20) K/uL Polychromasia 1+ Tear Drop Cells 1+ Ovalocytes 1+ PT 26.1 H (9.0-12.0) Seconds INR 2.6 H (0.9-1.1) Heparin Anti-Xa, Unfract 0.32 (0.3-0.7) IU/ml Sodium 135 L (136-145) mmol/L Potassium 4.3 (3.5-5.1) mmol/L Chloride 100 (98-107) mmol/L Carbon Dioxide 29 (21-32) mmol/L Anion Gap 6 (3-11) BUN 42 H (6-23) mg/dl Creatinine 2.93 H D (0.6-1.2) mg/dl Est Cr Clr Drug Dosing 13.3 ml/min eGFR 16.27 BUN/Creatinine Ratio 14.3 (10-20) Glucose 93 (70-99(Fasting)) mg/dl Calcium 8.8 (8.6-10.3) mg/dl PG Care Time/CCT Total # of Minutes Spent Total Time Spent with Patient: Total time spent is greater than 50% in coordination of care (as documented) at patient's floor/unit and/or counseling patient: Coding [place] [address] SUB INP/OBS CARE 2/35MIN Patient Type Established History Expanded Problem Focused Exam Expanded Problem Focused Medical Decision Making Moderate Complexity Diagnoses Acute upper GI bleeding K92.2 Acute blood loss anemia D62 H/O mitral valve replacement with mechanical valve Z95.2 Hx of aortic valve replacement, mechanical Z95.2
[2024-08-09 06:35] LABS: INR 2.2 (0.9-1.1); Prothrombin Time 22.6 Seconds (9.0-12.0)
--- NOTE | 2024-08-09 12:02 | Hospitalist Progress Note ---
Date of Service August 09, 2024 Assessment & Plan (1) Acute upper GI bleeding: (2) Acute blood loss anemia: (3) H/O mitral valve replacement with mechanical valve: (4) Hx of aortic valve replacement, mechanical: Plan Magda is a 74 year old female with a PMHx of TIA, siezure like activity, hx of mechanical mitral and aortic valve, CKD, ankle sprain who presents to the ER with coffee-ground emesis for the last 48 hours with melena. Supratherapeutic INR on admission (6.7), reversed in the ED. EGD without source of bleeding. Hgb 5.6 on arrival - s/p 2units PRBCs and venofer x1. Hgb remained stable and was started on heparin drip for bridging to Coumadin which was resumed on 07/28. Baseline chronic anemia - B12/folate/TSH WNL. iron studies consistent with anemia of chronic disease #Acute GI bleed/ Acute blood loss anemia Consult gastroenterology - s/p EGD 07/26 without active signs of bleed. continue PPI Hgb 5.6 on arrival - s/p 2u PRBCs, Venofer x 1. No signs of active GI bleeding Hgb 7.9, recheck every other day On ASA for hx of stroke like symptoms - this is held PT/ OT recommending Home with and 07/01 support. #Constipation Increased Miralax to BID.Continue Senna. enema given 08/03. Ducolax suppository given 08/08 KUB 08/03 w/ small amount of stool visualized. No obstruction. Encourage ambulation as much as possible. Patient w/ small BM s/p suppository 08/08, continue to monitor stools. #Hx of Mitral and Atrial Valve replacement/ Hx of stroke Reason for Coumadin (goal 2.5-3.5). Follows with Coumadin clinic. Continue heparin drip until Coumadin therapeutic. Coumadin resumed 07/28. Will leave at outpatient dosing. INR 2.2 - increased Coumadin from 2mg daily to 3mg daily starting today and will recheck in AM. Repeat INR in AM if INR > 2.5 in AM, she can be discharged home. #HTN Now with hypotension - but asymptomatic. Patient reports she does not cook with a lot of salt but diet upgraded to regular to mimic home environment. Amlodipine held with hypotension, Lisinopril d/c. Metoprolol and Imdur held today. d/c Imdur. For d/c, will cut amlodipine and metoprolol in half. Pt remains asymptomatic with lower BPs. BP a little better today. #SVT Concerns for A-fib during EGD, but not documented on EKG. Cardiology consulted - did not appear as afib possible SVT vs flutter. Regardless will be anticoagulated with artificial valves. Already on metoprolol. Consider 30-day monitor. Echo showing left to right shunt - cardiology recommending outpatient follow up #Left Ankle Sprain Reached out to Dr. Hassan 08/05 - recs include: weight bear as tolerated in boot w/ walker. OT eval weight bearing. While resting in bed go through ROM exercises w/ ankle. Circles and go through alphabet. Can resume formal therapy on discharge. Will likely be slow to recover but pain should start to subside in 2- 3 weeks w/ continued therapy. Podiatry outpatient f/u if needed. Discussed podiatry recommendations w/ PT 08/06. #CKD Cr slightly above baseline at 2.93. Avoid nephrotoxins Lisinopril discontinued. Check BMP every other day #Hyperkalemia -Received Calcium gluconate, insulin/dextrose - now resolved. Chronic conditions: Seizures: Keppra Mental Health: Celexa Hypothyroidism: Synthroid Gout: Allopurinol Dispo: continued inpatient stay bridging to Coumadin DVT proph: Coumadin Anticipate discharge home 08/10. Admission and Anticipated Discharge Date Admission Date: July 26, 2024 Subjective Patient seen and examined. Denies any complaints today. States that she is feeli ng well. She got a suppository yesterday and had a small bowel movement, nothing so far today - she continues to take Miralax. Denies any abdominal discomfort. Denies any nausea. Review of Systems Constitutional: no fever and no chills Respiratory: no cough, no dyspnea on exertion and no hemoptysis Cardiovascular: no dyspnea Gastrointestinal: no nausea and no vomiting Genitourinary: no dysuria and no urinary frequency Integumentary: no rash Physical Exam Constitutional: WD/WN, vitals as above Respiratory: normal respiratory effort, lungs clear to auscultation Cardiovascular: Rate/Rhythm: regular rate and regular rhythm Gastrointestinal (Abdomen): normal bowel sounds, soft, nontender, no hepatosplenomegaly Skin: no rashes, warm and dry Psychiatric: A+Ox3, euthymic affect Results & Data Results & Data Vital Signs (Past 12 Hours) Vital Signs Temp Pulse Resp BP BP Pulse Ox O2 Del Method 08/09/24 08:49 78 104/52 L 08/09/24 07:28 36.6 C 74 16 101/53 L 93 Room Air Laboratory Results 08/09/24 Range/Units 05:29 PT 22.6 H (9.0-12.0) Seconds INR 2.2 H (0.9-1.1) PG Care Time/CCT Total # of Minutes Spent Total Time Spent with Patient: Total time spent is greater than 50% in coordination of care (as documented) at patient's floor/unit and/or counseling patient: Coding [place] [address] SUB INP/OBS CARE 2/35MIN Patient Type Established History Expanded Problem Focused Exam Expanded Problem Focused Medical Decision Making Moderate Complexity Diagnoses Acute upper GI bleeding K92.2 Acute blood loss anemia D62 H/O mitral valve replacement with mechanical valve Z95.2 Hx of aortic valve replacement, mechanical Z95.2
[2024-08-09] MEDS: WARFARIN SOD 3 MG TAB PO SCH (16:46)
[2024-08-10 07:28] LABS: Basophils # (auto) 0.04 K/uL (0.00-0.20); Basophils % (auto) 0.6 %; Eosinophils # (auto) 0.08 K/uL (0.00-0.50); Eosinophils % (auto) 1.2 %; Hematocrit (blood only) 28.9 % (37.0-47.0); Hemoglobin 9.4 g/dl (12.0-16.0); Immature Granulocytes # (auto) 0.05 K/uL (0.01-0.20); Immature Granulocytes % (auto) 0.7 %; Lymphocytes % (auto) 10.4 %; Mean Corpuscular Hemoglobin 30.3 pg (25.0-34.0); Mean Corpuscular Hgb Conc 32.5 g/dL (32.0-36.0); Mean Corpuscular Volume 93.2 fL (80.0-100.0); Mean Platelet Volume 10.7 fL (9.4-12.4); Monocytes # (auto) 1.25 K/uL (0.11-0.59); Monocytes % (auto) 18.5 %; Neutrophils # (auto) 4.64 K/uL (1.40-6.50); Neutrophils % (auto) 68.6 %; Platelet Count 205 K/uL (130-400); RDW Coefficient of Variation 17.6 % (11.5-14.5); RDW Standard Deviation 59.4 fL (36.4-46.3); White Blood Count 6.76 K/ul (4.8-10.8)
[2024-08-10 07:47] LABS: INR 2.3 (0.9-1.1)
[2024-08-10 08:23] LABS: BUN Creatinine Ratio 16.4 (10-20); Calcium 9.3 mg/dl (8.6-10.3); Creatinine Clr Calc Pharmacy 13.6 ml/min; Potassium 4.1 mmol/L (3.5-5.1)
[2024-08-10 13:56] LABS: Appearance Urine Clear (Clear); Bacteria Urine Automated None Seen (None Seen); Bilirubin Urine Negative (Negative); Blood Urine 3+ (Negative); Color Urine Yellow; Epithelial Cell Urine Auto 0-2 /hpf (0-2); Glucose Urine UA Negative (Negative); Ketones Urine Negative (Negative); Leukocyte Esterase Urine Negative (Negative); Nitrite Urine Negative (Negative); Protein Urine Negative (Negative); RBC Urine Automated >20 /hpf (0-2); Specific Gravity Urine 1.014 (1.000-1.030); Urobilinogen Urine Negative (Negative); WBC Urine Automated 0-5 /hpf (0-5)
--- NOTE | 2024-08-10 14:16 | XRay Report ---
KUB HISTORY: constipation, low back pain COMPARISON STUDY: 08/02/2024 FINDINGS: Stable lower lumbar fusion and right hip prosthesis. Stable left upper pelvic surgical clip s. There is mild retained stool. No bowel obstruction seen. No gross free air. IMPRESSION: No acute findings. ACT 112: Negative or not required by law. The above report was generated using voice recognition software. It may contain grammatical, syntax o r spelling errors. Electronically signed by: Andre Plascencia M.D. 08/10/2024 2:15 PM
--- NOTE | 2024-08-10 14:17 | XRay Report ---
XR lumbar spine 2-3V CLINICAL HISTORY: low back pain COMPARISON STUDY: None FINDINGS: There is mild left convex upper lumbar scoliosis. There is interbody fusion from L4 through S1 with no hardware competition. There is moderate diffuse degenerative disc disease. No fracture or subluxation. IMPRESSION: Scoliosis and degenerative disc disease. ACT 112: Negative or not required by law. Electronically signed by: Andre Plascencia M.D. 08/10/2024 2:16 PM
[2024-08-10] MEDS: HYDROmorphone INJ 0.5 MG/0.5 ML SYR IV PRN (14:36)
[2024-08-10] MEDS: LIDOCAINE 5% 1 PATCH TD STA (16:18)
--- NOTE | 2024-08-10 16:19 | XRay Report ---
Technique: A frontal view of the chest was obtained Comparison is made to the prior examination dated 07/26/2024 Findings: There are no definite pulmonary infiltrates. The heart size is at the upper limit of normal. No pleural effusion or pneumothorax is seen. There is right lung base atelectasis. No fracture is noted. There is a prosthetic cardiac valve. Sternal wires are present Impression: Right lung base atelectasis Electronically signed by Hugh Inman 08-10-2024 4:18 PM
--- NOTE | 2024-08-10 17:19 | CT Scan Report ---
EXAM: CT Abdomen and Pelvis Without Intravenous Contrast INDICATION: Left flank pain. Fever. TECHNIQUE: Axial computed tomography images of the abdomen and pelvis without intravenous contrast. Sagittal and coronal reformatted images were created and reviewed. This CT exam was performed using one or more of the following dose reduction techniques: automated exposure control, adjustment of the mA and/or kV according to patient size, and/or use of iterative reconstruction technique. COMPARISON: 07/06/2024 FINDINGS: Limitations: None. Lung bases: There is mild dependent atelectasis in the lower lobes. Pleural space: No visualized pleural effusion or pneumothorax. Heart: Stable cardiomegaly and dense valvular calcification. Mediastinum: Stable small to moderate hiatal hernia containing the gastric fundus. ABDOMEN: Liver: Lack of intravenous contrast limits detection of some masses. No abnormality noted. Gallbladder and bile ducts: Cholecystectomy. No ductal dilation or stone noted. Pancreas: No pancreatic mass, calcification, inflammation or ductal dilation noted. Spleen: No significant abnormality noted. Adrenals: No significant abnormality noted. Kidneys and ureters: There is mild cortical atrophy of the left kidney. Stable hypodense nodule left kidney typical of a simple cyst. No further assessment required. There is stable mild cortical scarring of the right kidney. No stone or hydronephrosis. Stomach and bowel: Moderate amounts of formed stool and some layering fluid in the redundant colon. There is mild prominent fluid layering in small bowel loops without obstruction. Scattered colonic diverticulosis noted. No thickening or inflammatory process noted. PELVIS: Appendix: No findings to suggest acute appendicitis. Bladder: Appears normal for the degree of filling. No stones or inflammation. No large mass. Masses may not be detected in the absence of opacification. Reproductive: Hysterectomy. ABDOMEN and PELVIS: Intraperitoneal space: No free air. No significant fluid collection. Bones/joints: Left hip arthroplasty. Degenerative changes in the spine which is scoliotic. There are metallic intervertebral disc spacers L4-L5 and L5-S1. Right hip arthroplasty. Visualized portions appear normal. Soft tissues: No significant abnormality noted. Vasculature: Atherosclerotic calcification of the aorta and branches. No aneurysm. Lymph nodes: No pathologically enlarged lymph nodes. IMPRESSION: 1. Mild nonspecific ileus. No inflammatory process or obstruction. 2. Scarring of both kidneys with slightly more prominent atrophy of the left kidney stable. No stones, hydronephrosis or urinary gas. ACT 112: Negative or not required by law. Electronically signed by Christa Barraza 08-10-2024 5:19 PM
[2024-08-10 17:20] LABS: Adenovirus PCR Not Detected (NotDetected); Bordetella parapertussis PCR Not Detected (NotDetected); Bordetella pertussis PCR Not Detected (NotDetected); Chlamydia pneumoniae PCR Not Detected (NotDetected); Coronavirus 229E PCR Not Detected (NotDetected); Coronavirus CoV-2 (COVID19)PCR Not Detected (NotDetected); Coronavirus HKU1 PCR DETECTED (NotDetected); Coronavirus NL63 PCR Not Detected (NotDetected); Coronavirus OC43PCR Not Detected (NotDetected); Human Metapneumovirus PCR Not Detected (NotDetected); Influenza A PCR Not Detected (NotDetected); Influenza B PCR Not Detected (NotDetected); Mycoplasma pneumoniae PCR Not Detected (NotDetected); Parainfluenza Virus 1 PCR Not Detected (NotDetected); Parainfluenza Virus 2 PCR Not Detected (NotDetected); Parainfluenza Virus 3 PCR Not Detected (NotDetected); Parainfluenza Virus 4 PCR Not Detected (NotDetected); Respiratory Syncytial VirusPCR Not Detected (NotDetected); Rhinovirus/Enterovirus PCR Not Detected (NotDetected)
--- NOTE | 2024-08-10 17:21 | Hospitalist Progress Note ---
Date of Service August 10, 2024 Assessment & Plan (1) Acute upper GI bleeding: (2) Acute blood loss anemia: (3) H/O mitral valve replacement with mechanical valve: (4) Hx of aortic valve replacement, mechanical: (5) Flank pain: (6) Fever: Plan Magda is a 74 year old female with a PMHx of TIA, siezure like activity, hx of mechanical mitral and aortic valve, CKD, ankle sprain who presents to the ER with coffee-ground emesis for the last 48 hours with melena. Supratherapeutic INR on admission (6.7), reversed in the ED. EGD without source of bleeding. Hgb 5.6 on arrival - s/p 2units PRBCs and venofer x1. Hgb remained stable and was started on heparin drip for bridging to Coumadin which was resumed on 07/28. Baseline chronic anemia - B12/folate/TSH WNL. iron studies consistent with anemia of chronic disease #Fever unknown origin, left flank pain Patient reports sudden onset of left flank pain overnight. Has been febrile, low grade fever 24-48 hours. Urinalysis + for blood in urine, negative for infection. Sent for culture, await results. CBC w/o leukocytosis. BMP w/ improvement of creatinine overnight to 2.86 CXR: right lung base atelectasis KUB: no acute findings. Mild retained stool. CTAP mild nonspecific ileus. no inflammatory process/obstruction. scarring of both kidneys, more prominent atrophy of the left kidney stable. No stones, hydronephrosis or urinary gas. Biofire + for Coronavirus HKU1 Procal, CRP, pending. Added Dilaudid 0.25mg IV q4h prn for pain Lidocaine patch #Acute GI bleed/ Acute blood loss anemia Consult gastroenterology - s/p EGD 07/26 without active signs of bleed. continue PPI Hgb 5.6 on arrival - s/p 2u PRBCs, Venofer x 1. No signs of active GI bleeding Hgb 7.9, recheck every other day On ASA for hx of stroke like symptoms - this is held PT/ OT recommending Home with and 07/01 support. #Constipation Increased Miralax to BID.Continue Senna. enema given 08/03. Ducolax suppository given 08/08 KUB 08/03 w/ small amount of stool visualized. No obstruction. Encourage ambulation as much as possible. Patient w/ small BM s/p suppository 08/08, continue to monitor stools. #Hx of Mitral and Atrial Valve replacement/ Hx of stroke Reason for Coumadin (goal 2.5-3.5). Follows with Coumadin clinic. Continue heparin drip until Coumadin therapeutic. Coumadin resumed 07/28. Will leave at outpatient dosing. INR 2.3 - increased Coumadin 3mg daily until INR therapeutic, then titrate back down to 2mg daily dosing. Reached out to Dr. Freeman 08/10 - okay to be sent home w/ INR of 2.3 if she would follow up in clinic within a few days however in the event of her fever and flank pain discharge was post poned. Repeat INR in AM #HTN Now with hypotension - but asymptomatic. Patient reports she does not cook with a lot of salt but diet upgraded to regular to mimic home environment. Lisinopril and Imdur discontinued For discharge: cut amlodipine and metoprolol in half. #SVT Concerns for A-fib during EGD, but not documented on EKG. Cardiology consulted - did not appear as afib possible SVT vs flutter. Regardless will be anticoagulated with artificial valves. Already on metoprolol. Consider 30-day monitor. Echo showing left to right shunt - cardiology recommending outpatient follow up #Left Ankle Sprain Reached out to Dr. Hassan 08/05 - recs include: weight bear as tolerated in boot w/ walker. OT eval weight bearing. While resting in bed go through ROM exercises w/ ankle. Circles and go through alphabet. Can resume formal therapy on discharge. Will likely be slow to recover but pain should start to subside in 2- 3 weeks w/ continued therapy. Podiatry outpatient f/u if needed. Discussed podiatry recommendations w/ PT 08/06. #CKD Cr slightly above baseline at 2.86 but improving. Avoid nephrotoxins Lisinopril discontinued. AM BMP #Hyperkalemia -Received Calcium gluconate, insulin/dextrose - now resolved. Chronic conditions: Seizures: Keppra Mental Health: Celexa Hypothyroidism: Synthroid Gout: Allopurinol Dispo: continued inpatient stay bridging to Coumadin DVT proph: Coumadin Updated at bedside 08/10. Admission and Anticipated Discharge Date Admission Date: July 26, 2024 Supervising Physician Co-Signing Physician Notes I personally saw and examined the patient. I independently reviewed the labs, EKG, imaging, problem list, medication list. I verified all cole points and agree with Marilu Lance PA-C with the following exceptions and/or additions: Patient having a low-grade fever with new onset central back pain around the L5 area. On examination she has left CVA tenderness. She has some ecchymosis on her left abdomen however the tenderness appears to be posterior to this. She has no central spinal or paraspinal tenderness on exam around the area she points to where her pain is. Given her new back pain with ongoing low-grade but a few true fevers we will get BioFire PCR, blood cultures, procalcitonin, CRP and CT abdomen pelvis without IV contrast. Subjective patient seen and examined w/ Dr. Edgar. Patient w/ abrupt onset of left flank pain over night. Severe in nature. patient uncomfortable at time of encounter. Reports she has had trouble urinating and continues to have issues moving her bowels. Reports no hx of kidney stones. She has been febrile on and off for about the last ~24-48 hours. Denies N/V. Denies cough/congestion. Denies falling, tripping, or sliding out of bed overnight. Physical Exam Constitutional: mild distress Eyes: PERRL, conjunctivae normal, anicteric sclerae Respiratory: normal respiratory effort, lungs clear to auscultation Cardiovascular: RRR, no murmur, no edema Gastrointestinal (Abdomen): +CVA tenderness to left flank area. Musculoskeletal: area of ecchymosis on left lateral rib area, daughter reports has been there since a previous fall Psychiatric: A+Ox3, euthymic affect Results & Data Results & Data Vital Signs (Past 12 Hours) Vital Signs Temp Pulse Resp BP BP Pulse Ox O2 Del Method 08/10/24 15:17 37.8 C H 08/10/24 14:25 37.6 C H 88 16 107/64 94 Room Air 08/10/24 12:30 37.5 C 80 17 110/60 93 Room Air 08/10/24 07:45 36.7 C 84 16 102/54 L 95 Room Air PG Care Time/CCT Total # of Minutes Spent Total Time Spent with Patient: Total time spent is greater than 50% in coordination of care (as documented) at patient's floor/unit and/or counseling patient: Coding Level of Care Code 43359 SUB INP/OBS CARE 3/50MIN Diagnoses Acute upper GI bleeding K92.2 Acute blood loss anemia D62 H/O mitral valve replacement with mechanical valve Z95.2 Hx of aortic valve replacement, mechanical Z95.2 Flank pain R10.9 Fever R50.9
[2024-08-10] MEDS: LACTATED RINGER'S 1,000 ML IV SCH (18:00)
[2024-08-11 08:05] LABS: Hematocrit (blood only) 25.7 % (37.0-47.0); Hemoglobin 8.4 g/dl (12.0-16.0); Mean Corpuscular Hemoglobin 30.7 pg (25.0-34.0); Mean Corpuscular Hgb Conc 32.7 g/dL (32.0-36.0); Mean Corpuscular Volume 93.8 fL (80.0-100.0); Mean Platelet Volume 10.9 fL (9.4-12.4); Platelet Count 177 K/uL (130-400); RDW Coefficient of Variation 17.7 % (11.5-14.5); RDW Standard Deviation 60.4 fL (36.4-46.3); Red Blood Count 2.74 M/uL (4.20-5.40); White Blood Count 8.79 K/ul (4.8-10.8)
[2024-08-11 08:21] LABS: BUN Creatinine Ratio 18.1 (10-20); Calcium 8.6 mg/dl (8.6-10.3); Creatinine Clr Calc Pharmacy 13.1 ml/min; Potassium 4.1 mmol/L (3.5-5.1)
[2024-08-11 08:49] LABS: INR 4.1 (0.9-1.1)
[2024-08-11] MEDS: LIDOCAINE 5% 1 PATCH TD SCH (09:04)
[2024-08-11 10:19] LABS: A calco-baum cmplx NotReported Not Detected (NotDetected); Bact fragilis Not Reported Not Detected (NotDetected); Blood Culture Id Panel See PCR Comment (NotDetected); C auris Not Reported Not Detected (NotDetected); Calbicans Not Reported Not Detected (NotDetected); Candida glabrata Not Reported Not Detected (NotDetected); Candida krusei Not Reported Not Detected (NotDetected); Cneoformans/gatti Not Reported Not Detected (NotDetected); Cparapsilosis Not Reported Not Detected (NotDetected); E cloacae compx Not Reported Not Detected (NotDetected); Efaecalis Not Reported Not Detected (NotDetected); Efaecium Not Reported Not Detected (NotDetected); Enterobacterales Not Reported Not Detected (NotDetected); Escherichia coli Not Reported Not Detected (NotDetected); H influenzae Not Reported Not Detected (NotDetected); K aerogenes Not Reported Not Detected (NotDetected); Koxytoca Not Reported Not Detected (NotDetected); Kpneumoniae grp Not Reported Not Detected (NotDetected); Lmonocyt Not Reported Not Detected (NotDetected); N meningitidis Not Reported Not Detected (NotDetected); P aeruginosa Not Reported Not Detected (NotDetected); Proteus spp Not Reported Not Detected (NotDetected); Salmonella spp Not Reported Not Detected (NotDetected); Staph lugdunensis Not Reported DETECTED (NotDetected); Staphaureus Not Reported Not Detected (NotDetected); Staphepi Not Reported Not Detected (NotDetected); Staphylococcus lugdunensis DETECTED (NotDetected); Staphylococcus spp. DETECTED (NotDetected); Stenmaltophilia Not Reported Not Detected (NotDetected); Strep agal(GrpB) Not Reported Not Detected (NotDetected); Strep pneum Not Reported Not Detected (NotDetected); Strep pyog (GrpA) Not Reported Not Detected (NotDetected); Strep spp Not Reported Not Detected (NotDetected); mecAC Resistant Gene Not Detected (NotDetected)
[2024-08-11 11:46] LABS: Staph spp. Not Reported DETECTED (NotDetected)
[2024-08-11] MEDS: ceFAZolin 2000MG 2,000 MG/15 ML SYR IV SCH (12:59)
--- NOTE | 2024-08-11 13:12 | XCELERA ---
[id number]
--- NOTE | 2024-08-11 16:27 | Electrocardiogram Report ---
Test Reason : Blood Pressure : */* mmHG Vent. Rate : 87 BPM Atrial Rate : 87 BPM P-R Int : 162 ms QRS Dur : 104 ms QT Int : 372 ms P-R-T Axes : 57 -15 148 degrees QTcB Int : 447 ms Sinus rhythm with Premature atrial complexes Left ventricular hypertrophy with repolarization abnormality Abnormal ECG When compared with ECG of 29-Jul-2024 06:34, Premature atrial complexes are now Present Nonspecific T wave abnormality no longer evident in Inferior leads T wave inversion now evident in Lateral leads QT has shortened Confirmed by Troy Ledesma ([id number]) on 08/11/2024 4:27:36 PM Referred By: REFERRED SELF Confirmed By: Troy Ledesma
--- NOTE | 2024-08-11 17:55 | Magnetic Resonance Report ---
Clinical History: Lumbar radiculopathy Technique: Sagittal and axial T1 and T2-weighted magnetic resonance images were obtained of the lumbar spine without gadolinium contrast. Comparison is made to the CT of the abdomen and pelvis dated 08/10/2024 Findings: Again seen is anterior interbody fusion at L4-5 and L5-S1. There is scoliosis. No listhesis is seen. There are degenerative endplate changes at T12-L1 and to a lesser extent at other levels. There are a few apparent vertebral hemangiomas with characteristic increased T1 and increased T2 signal intensity. No other focal osseous lesion is evident. No fracture is identified. There is no definite sign of infection. There is no sign of acute ligamentous injury. The conus medullaris appears normal, terminating at the level of L1. There are partially visualized left renal cysts At L1-L2, there is a disc bulge with slight encroachment upon both neural foramen. There is no spinal stenosis or clear nerve root compression. At L2-L3, there is a diffuse disc bulge with mild bilateral neural foramen narrowing. There is no spinal stenosis or clear nerve root compression. At L3-L4, there is mild spinal stenosis due to a disc bulge and facet osteoarthritis. There is no visible compression of the traversing nerve roots. There is bilateral neural foramen narrowing, without definite compression of the exiting L3 nerve roots At L4-L5, there is no spinal stenosis or nerve root compromise At L5-S1, there is no spinal stenosis or nerve root compression Impression: 1. Fusion of L4-S1 2. Scoliosis 3. Mild spinal stenosis at L3-4, without visible compression of the traversing nerve roots 4. Multilevel neural foramen narrowing, without definite nerve root compression 5. Left renal cysts Electronically signed by Hugh Inman 08-11-2024 5:50 PM
--- NOTE | 2024-08-11 18:45 | Hospitalist Progress Note ---
Date of Service August 11, 2024 Assessment & Plan (1) Bacteremia: (2) Lumbar back pain: (3) Acute upper GI bleeding: (4) Acute blood loss anemia: (5) H/O mitral valve replacement with mechanical valve: (6) Hx of aortic valve replacement, mechanical: Jorge Man is a 74 year old female with a PMHx of TIA, siezure like activity, hx of mechanical mitral and aortic valve, CKD, ankle sprain who presents to the ER with coffee-ground emesis for the last 48 hours with melena. Supratherapeutic INR on admission (6.7), reversed in the ED. EGD without source of bleeding. Hgb 5.6 on arrival - s/p 2units PRBCs and venofer x1. Hgb remained stable and was started on heparin drip for bridging to Coumadin which was resumed on 07/28. Baseline chronic anemia - B12/folate/TSH WNL. iron studies consistent with anemia of chronic disease #Gram positive bacteremia / Lumbar back pain Source of bacteremia remains unclear -- only new symptom is new onset lumbar back pain Blood cultures positive with Staph lugdunensis in 2/2 cultures Plan to repeat blood cultures on 08/13/24 Started Cefazolin 2 g Q12h due to renal function Urine culture prelim negative Biofire + for Coronavirus HKU1. CXR with right lung base atelectasis. KUB with mild retained stool. CT A/P without inflammatory process/obstruction, no stones, hydronephrosis or urinary gas Lumbar MRI obtained due to concern for discitis/osteomyelitis -- revealed no definitive sign of infection, noted fusion of L4-S1, multilevel neural foramen narrowing without definitive nerve root compression Consulted ortho spine for new onset back pain in setting of new bacteremia, appreciate recommendations. Former back fusion surgery in [place] but patient/family cannot remember the surgeon's name No leukocytosis but elevated CRP 14/37 and procal 3.47 Continue pain regimen Tylenol mild pain, tramadol 50 mg q4h moderate pain, Dilaudid 0.25 mg q4h severe pain, Lidocaine patch Will order routine ID consult in AM 08/12 #Hx of Mitral and Atrial Valve replacement/ Hx of stroke Reason for Coumadin (goal 2.5-3.5), takes 2 mg daily except skips Saturday dose. Follows with Coumadin clinic. Utilized heparin drip initially, then Coumadin resumed 07/28 INR now supratherapeutic at 4.1, suspect secondary to acute infection (source remains unclear at this time) Held dose of Coumadin 08/[address] Blankenship Repeat INR in AM Recommend transfer to [facility] given valve replacements with bacteremia #JAMES superimposed on CKD Baseline Cr ~2.2 JAMES with Cr=2.98 Lisinopril discontinued Avoid nephrotoxins, renal dose meds when appropriate Received IV fluids overnight, encourage oral hydration AM BMP #Acute GI bleed/ Acute blood loss anemia Consult gastroenterology - s/p EGD 07/26 without active signs of bleed. continue PPI Hgb 5.6 on arrival - s/p 2u PRBCs, Venofer x 1. No signs of active GI bleeding On ASA for hx of stroke like symptoms - this is held Hgb improving/stable at 8.4, recheck every other day #Constipation Continue bowel regimen KUB 08/10 with mild retained stool, no bowel obstruction, no gross free air BM 08/11, continue to monitor stools #HTN Now with hypotension - but asymptomatic. Patient reports she does not cook with a lot of salt but diet upgraded to regular to mimic home environment. Lisinopril and Imdur discontinued For discharge: cut amlodipine and metoprolol in half #SVT Concerns for A-fib during EGD, but not documented on EKG. Cardiology consulted - did not appear as afib possible SVT vs flutter. Regardless will be anticoagulated with artificial valves. Already on metoprolol. Consider 30-day monitor on discharge Echo showing left to right shunt - cardiology recommending outpatient follow up #Left Ankle Sprain Reached out to Dr. Hassan 08/05 - recs include: weight bear as tolerated in boot w/ walker. OT eval weight bearing. While resting in bed go through ROM exercises w/ ankle. Circles and go through alphabet. Can resume formal therapy on discharge. Will likely be slow to recover but pain should start to subside in 2- 3 weeks w/ continued therapy. Podiatry outpatient f/u if needed. Discussed podiatry recommendations w/ PT 08/06. Chronic conditions: Seizures: Keppra Mental Health: Celexa Hypothyroidism: Synthroid Gout: Allopurinol Dispo: continued inpatient stay given bacteremia with unclear source. PT/ OT recommending Home with and 07/01 support DVT proph: Coumadin Discussed antibiotics with pharmacy Started Cefazolin Ordered lumbar MRI, echo, EKG Consulted ortho spine Daughter updated via phone call; Attempted to call via phone call, no voicemail available Admission and Anticipated Discharge Date Admission Date: July 26, 2024 Supervising Physician Co-Signing Physician Notes I personally saw and examined the patient. I independently reviewed the labs, EKG, imaging, problem list, medication list. I verified all cole points and agree with Yesi Modi PA-C with the following exceptions and/or additions: Patient appears similar to yesterday. Unknown who performed a back operation previously. Urine culture no growth to date. Blood cultures surprisingly positive for staph lugdunensis. Started on cefazolin. Since her only new complaint was her central L5 back pain which is ongoing today we performed an MRI lumbar spine which did not reveal any discitis or osteomyelitis. Possible this is just translocation of bacteria with her recent GI bleed. However this would not explain her back pain. Recommend consulting orthospine to examine patient and have a second look at the MRI. Consult ID. TTE is unrevealing. With her mechanical mitral valve I would have a low tolerance to perform transesophageal echo but will consult ID initially. Blood culture should be repeated in 48 hours. Patient be transferred to med/tele due to the possibility of infective endocarditis. Subjective Patient seen and evaluated at bedside. She continues to report significant lower back pain. This is localized to her back, without radicular or radiating symptoms. She denies any fever or chills today. She reports she had a bowel movement this morning and no urinary symptoms including dysuria, frequency, urgency. She reports that her back pain is 8/10 at rest and 10/10 with movement. We discussed her positive blood cultures and updated treatment plan. All questions/concerns were answered. No additional complaints at this time. Physical Exam 2 Physical Exam: General: No acute distress when resting in bed, yells out in pain with movement. Elderly female. Hard of hearing. Cardiac: Regular rate and rhythm without murmurs gallops or rubs. Pulm: Clear to auscultation bilaterally without wheezes, rales or rhonchi. Normal respiratory effort. 93% on room air. Abdominal: Soft, nontender, slightly distended. Bowel sounds present. No true CVA tenderness today. Spine: Localized tenderness in lumbar region. Neuro: A&O x3. No focal neurological deficits. Results & Data Results & Data Vital Signs (Past 12 Hours) Vital Signs Temp Pulse Pulse Resp BP Pulse Ox O2 Del Method 08/11/24 15:34 99.0 F 87 16 104/57 L 93 Room Air 08/11/24 11:01 99.0 F 84 14 113/67 93 Room Air 08/11/24 07:38 98.6 F 85 18 106/65 91 Room Air Laboratory Results Reviewed CBC Reviewed PT and INR Reviewed BMP and chemistries Reviewed UA, urine culture Reviewed blood cultures Diagnostic Findings Reviewed echocardiogram Reviewed lumbar MRI PG Care Time/CCT Total # of Minutes Spent Total Time Spent with Patient: Total time spent is greater than 50% in coordination of care (as documented) at patient's floor/unit and/or counseling patient: Coding Level of Care Code 43853 SUB INP/OBS CARE 3/50MIN Diagnoses Bacteremia R78.81 Lumbar back pain M54.50 Acute upper GI bleeding K92.2 Acute blood loss anemia D62 H/O mitral valve replacement with mechanical valve Z95.2 Hx of aortic valve replacement, mechanical Z95.2
[2024-08-11] MEDS: traMADol HCL 50 MG TABLET PO PRN (19:34)
[2024-08-11] MEDS: HYDROmorphone INJ 0.5 MG/0.5 ML SYR IV PRN (21:57)
[2024-08-12 06:59] LABS: Basophils # (auto) 0.04 K/uL (0.00-0.20); Basophils % (auto) 0.4 %; Eosinophils # (auto) 0.07 K/uL (0.00-0.50); Eosinophils % (auto) 0.7 %; Hematocrit (blood only) 24.2 % (37.0-47.0); Hemoglobin 8.1 g/dl (12.0-16.0); Immature Granulocytes # (auto) 0.07 K/uL (0.01-0.20); Immature Granulocytes % (auto) 0.7 %; Lymphocytes # (auto) 1.47 K/uL (1.20-3.40); Lymphocytes % (auto) 15.2 %; Mean Corpuscular Hemoglobin 30.8 pg (25.0-34.0); Mean Corpuscular Hgb Conc 33.5 g/dL (32.0-36.0); Monocytes # (auto) 2.15 K/uL (0.11-0.59); Monocytes % (auto) 22.3 %; Neutrophils # (auto) 5.86 K/uL (1.40-6.50); Neutrophils % (auto) 60.7 %; Platelet Count 169 K/uL (130-400); RDW Coefficient of Variation 17.6 % (11.5-14.5); RDW Standard Deviation 58.5 fL (36.4-46.3); Red Blood Count 2.63 M/uL (4.20-5.40); White Blood Count 9.66 K/ul (4.8-10.8)
[2024-08-12 08:37] LABS: Calcium 8.6 mg/dl (8.6-10.3); Potassium 3.6 mmol/L (3.5-5.1)
[2024-08-12 08:38] LABS: INR 5.2 (0.9-1.1); Prothrombin Time 48.6 Seconds (9.0-12.0)
[2024-08-12 08:43] LABS: BUN Creatinine Ratio 18.4 (10-20); C Reactive Protein 25.7 mg/dl (0-0.5); Creatinine Clr Calc Pharmacy 15.3 ml/min
[2024-08-12] MEDS: SODIUM CHLORIDE 0.9% 500 ML IV SCH (11:02)
--- NOTE | 2024-08-12 11:46 | Infectious Disease Consult ---
Date of Consultation August 12, 2024 Assessment & Plan (1) Lumbar back pain: (2) Bacteremia: (3) Fever: Plan This is a 74-year-old female with a past medical history of TIA, seizure-like activity, mechanical mitral valve and aortic valve replacement on warfarin, left distal radius fracture status post ORIF, lumbar fusion, presents on 07/26/2024 with coffee ground emesis with melena. She fell and sprained her ankle on 07/06/2024. Since that time she has been taking ibuprofen every 6 hours. Per EMS she was reportedly weak and pale on their arrival. Blood pressures were in the 80s. This improved with IV fluid. Admission H&H 5.6/17.5. INR supratherapeutic at 6.7. Received vitamin K in the ED and 2 units of packed red blood cells. She was started on Protonix gtt. following an IV bolus. She was evaluated by GI and underwent an EGD on 07/26/2024, which showed old blood in the gastric body, but no obvious source. There was suspicion for mucosal bleeding 2/2 supratherapeutic INR. Course complicated by SVT versus atrial tachycardia or atrial flutter during EGD, but no recurrence. She was evaluated by cardiology. She underwent echocardiogram on 07/27/2024 which showed acceptable transvalvular gradient across the mechanical aortic valve and the mechanical mitral valve. Possible left to right shunt into the right atrium. Her course was further complicated with fever with a Tmax of 38.1 on 08/10/2024. Blood cultures were obtained and grew Staphylococcus lugdunensis in 4/4 bottles. Mark daniels also complained of sudden onset of left flank pain. She denied urineary symptoms. Bio fire was positive for coronavirus H KU I. Chest x-ray showed a right lung base atelectasis. KUB showed mild retained stool. CTAP showed mild nonspecific ileus, no inflammatory process or obstruction. Scarring of both kidneys more prominent atrophy of the left kidney which was stable. No stones, hydronephrosis or urinary gas lumbar. Spine shows fusion of L4-S1, scoliosis, mild spinal stenosis at L3-4 without visible compression, multilevel neural foramen narrowing without compression and left renal cysts. She has no leukocytosis. CRP 14.37-->. 25.70. Procalcitonin 3.47.. She has been afebrile for greater than 48 hours. She is currently on cefazolin. A repeat echo cardiogram obtained 08/11/2024 shows well-seated prosthetic aortic and mitral valve. No valvular vegetations. ID consulted for GPC bacteremia of unknown etiology. Microbiology: Blood cultures 08/10/2024: 4/4 bottles Staphylococcus lugdunensis Urine culture 08/10/2024 20 K Alloscardovia omnicolens Antibiotics: Cefazolin 08/11ongoing # Staphylococcus lugdunensis bacteremia of unknown etiology # Coffee-ground emesis, melena resolved # Status post mitral valve replacement, mechanical # status post aortic valve replacement, mechanical # status post lumbar spinal fusion, hardware in place # status post left radius ORIF # Coronavirus H KU 1 positive # Tmp sulfa and doxy allergy- unk rxn # CKD Discussion: Source of staph hebertnsis bacteremia unclear. This is a coagulase-negative staph which is part of skin nicole however unlike other CONS this can cause significant disease similar to Staphylococcus aureus. It has been associated with skin and soft tissue infections, endocarditis, bacteremia without endocarditis, bone and joint infections, hardware infections. She has 2 mechanical valves (aortic, mitral), spinal hardware and s/p L radius hardwares TTE completed on 07/27 and on 08/11 without evidence of valve vegetations or abnormalities. The mechanical valves seem to be well-seated. She complains of back pain but spinela MRI spine is without evidence of spinal infection. She does not have any obvious signs of skin and soft tissue infection on exam. No pain at radius, Urine culture growing only 20K Alloscard[place]ia omnicolens without ja urinary symptoms . Her ? L flank pain/ left sided pain seems to be in the setting of prior fall as area is slightly bruised and not from an active UTI. In any case, cefazolin should cover as this organism is usually susceptible to most beta- lactams. Recommendations: Repeat blood cultures ordered today Follow-up orthopedic consult Would pursue HANNAH Continue cefazolin 2 g IV Q12 hours (creatinine clearance 15.3) 0pending susceptibilities. Thank you for this consultation. ID will continue to follow. Olga Lidia Simons MD, MPH Infectious Disease [facility], [facility] Call [phone] with questions Consultation Information Consultation was provided via telemedicine using two-way real-time interactive telecommunication between the patient and the telemedicine provider. For the duration of the visit, the provider was performing the assessment from a different facility than the patient. This includesuse of bluetooth stethoscope forauscultationperformed by the telepresenter that the telemedicine provider can hear if described in the physical exam. [employer] contact information: Please call [facility] Call Center . (Phone Number For Physician Use Only) After establishing a telemedicine visit, patient was: Patient was verified with two unique identifiers Time Spent with Patient: Initial => 75 min History of Present Illness Reason for Consultation: GPC bacteremia, unk source Requesting Physician: JOSE Samayoa Attending Physician: Lee Paredes MD Allergies Allergy/AdvReac Type Severity Reaction Status Date / Time doxycycline Allergy Unknown CAN'T Verified 07/26/24 12:18 REMEMBER sulfamethoxazole Allergy Unknown CAN'T Verified 07/26/24 12:18 REMEMBER trimethoprim Allergy Unknown CAN'T Verified 07/26/24 12:18 REMEMBER Home Medications Medication Instructions Recorded Confirmed Type atorvastatin 40 mg tablet 40 mg PO HS 07/19/23 07/26/24 History metoprolol succinate 25 mg 25 mg PO BID 08/19/23 07/26/24 History tablet,extended release 24 hr levothyroxine 50 mcg tablet 50 mcg PO QAM #90 tabs 01/06/24 07/26/24 Rx calcium 600 mg (as 1 tab PO DAILY #90 tabs 03/10/24 07/26/24 Rx carbonate)-vitamin D3 10 mcg (400 unit) tablet citalopram 20 mg tablet 20 mg PO QAM #90 tabs 03/10/24 07/26/24 Rx pramipexole 0.125 mg tablet 0.125 mg PO QPM #90 tabs 04/21/24 07/26/24 Rx pregabalin 100 mg capsule (Lyrica) 100 mg PO PM #90 caps 04/21/24 07/26/24 Rx folic acid 1 mg tablet 0 mg PO DAILY 05/13/24 07/26/24 History amlodipine 2.5 mg tablet 2.5 mg PO QAM 05/14/24 07/26/24 History aspirin 81 mg tablet,delayed 81 mg PO DAILY 06/18/24 07/26/24 History release oxycodone 5 mg tablet 5 mg PO Q6H PRN pain #8 tabs 07/11/24 07/26/24 Rx oxycodone-acetaminophen 5 mg-325 1 tab PO Q8H PRN pain #10 tabs 07/14/24 07/26/24 Rx mg tablet allopurinol 100 mg tablet 100 mg PO DAILY #90 tabs 07/22/24 07/26/24 Rx isosorbide mononitrate 30 mg 30 mg PO QAM #90 tabs 07/22/24 07/26/24 Rx tablet,extended release 24 hr levetiracetam 500 mg tablet 500 mg PO BID #60 tabs 07/22/24 07/26/24 Rx (Keppra) lisinopril 5 mg tablet 5 mg PO HS #90 tabs 07/22/24 07/26/24 Rx warfarin 2 mg tablet See Rx Instructions PO UD #78 tabs 07/24/24 07/26/24 Rx cyanocobalamin (vitamin B-12) 1,000 mcg IM MONTHLY PRN B12 07/26/24 07/26/24 History 1,000 mcg/mL injection solution Deficiency Patient History Medical History Acute kidney injury Open fracture of left distal radius (08/19/23) from a fall-saw orthopedics in the ED and was admitted to [facility] per ortho note History of CVA (cerebrovascular accident) History of transfusion of packed RBC 08/2023 1 unit CKD (chronic kidney disease), stage III Surgical History S/P ORIF (open reduction internal fixation) fracture Lt distal radius 08/23/23 Dr. Oscar Jones S/P total abdominal hysterectomy H/O neck surgery History of cholecystectomy H/O oophorectomy S/P repair of paraesophageal hernia History of total right hip replacement S/P lumbar fusion H/O hemorrhoidectomy Family History Father Heart disease Mother Stroke Social History Smoking Status: Never smoker Second Hand Exposure: No; Do You Dip or Chew Tobacco: No; Hx Alcohol Use: No Hx Substance Use: No Preferred Language: Indonesian Communication Ability: Effective Visual Impairment: No Limitations Hearing Ability: Hard of Hearing Yard Spotter Required: No Beliefs That Will Affect Care: None marital status: Current Living Situation: Spouse Current Living Situation Comment: Trailer current occupational status: retired How many Children do You have: 2 Feels Safe at Home: Yes Childhood Exposure to Second-Hand Smoke: No Diet: regular Diet Comment: regular caffeine: No Dental Care, Regularly: No Physical Activity Frequency: Does not Exercise Seatbelt Use: always Sunscreen Use: No Assistive Devices: Cane and Walker Review of System A 10 point ROS obtained. Pertinent positives as per hpi Physical Exam Physical Exam: NAD, hard of hearing Anicteric sclera, edentulous Supple neck tachycardic No increased work of breathing Lower back ttp. Left upper later side tenderness No suprapubic tenderness Left foot bruising and left lateral chest wall bruising Cooperative AAO times 3 Results & Data Vital Signs (Past 12 Hours) Vital Signs Temp Pulse Pulse Pulse Resp BP BP 08/12/24 08:55 37.3 C 100 H 18 102/57 L 08/12/24 06:45 109 H 08/12/24 03:43 37.0 C 105 H 18 105/60 08/12/24 00:27 36.4 C L 107 H 16 103/65 Pulse Ox O2 Del Method 08/12/24 08:55 91 Room Air 08/12/24 06:45 08/12/24 03:43 93 Room Air 08/12/24 00:27 91 Room Air Laboratory Results Laboratory Results - last 48 hr 08/10/24 08/10/24 08/11/24 19:13 Unknown 07:24 WBC 8.79 RBC 2.74 L Hgb 8.4 L Hct 25.7 L MCV 93.8 MCH 30.7 MCHC 32.7 RDW Std Deviation 60.4 H RDW Coeff of Gisele 17.7 H Plt Count 177 MPV 10.9 Immature Gran % (Auto) Neut % (Auto) Lymph % (Auto) [place] % (Auto) Eos % (Auto) Baso % (Auto) Neut # (Auto) Lymph # (Auto) [place] # (Auto) Eos # (Auto) Baso # (Auto) Immature Gran # (Auto) PT 39.0 H INR 4.1 H Sodium 134 L Potassium 4.1 Chloride 101 Carbon Dioxide 28 Anion Gap 5 BUN 54 H Creatinine 2.98 H Est Cr Clr Drug Dosing 13.1 eGFR 15.95 BUN/Creatinine Ratio 18.1 Glucose 91 Calcium 8.6 C-Reactive Protein 14.37 H Procalcitonin 3.47 H Urine Color Yellow Urine Appearance Clear Urine pH 5.0 Ur Specific [place] 1.014 Urine Protein Negative Urine Glucose (UA) Negative Urine Ketones Negative Urine Blood 3+ H Urine Nitrite Negative Urine Bilirubin Negative Urine Urobilinogen Negative Ur Leukocyte Esterase Negative Urine WBC (Auto) 0-5 Urine RBC (Auto) >20 H U Hyaline Cast (Auto) 3-5 H U Epithel Cells (Auto) 0-2 Urine Bacteria (Auto) None Seen Adenovirus (PCR) Not Detected B. pertussis DNA (PCR) Not Detected B.parapertussis DNA PCR Not Detected C. pneumoniae DNA (PCR) Not Detected Coronavirus OC43 (PCR) Not Detected Coronavirus HKU1 (PCR) DETECTED A Coronavirus 229E (PCR) Not Detected SARS-CoV-2 (PCR) Not Detected Coronavirus NL63 (PCR) Not Detected Human Metapneumovir PCR Not Detected Influenza Type A (PCR) Not Detected Influenza Type B (PCR) Not Detected M. pneumoniae (PCR) Not Detected Parainfluenza 1 (PCR) Not Detected Parainfluenza 2 (PCR) Not Detected Parainfluenza 3 (PCR) Not Detected Parainfluenza 4 (PCR) Not Detected RSV (PCR) Not Detected Entero/Rhino (PCR) Not Detected Staphylococcus sp PCR DETECTED A mecA/C-Methicil Resis Gene Not Detected Staph lugdunensis PCR DETECTED A Bld Cult ID Panel PCR See PCR Comment 08/12/24 08/12/24 06:13 07:24 WBC 9.66 RBC 2.63 L Hgb 8.1 L Hct 24.2 L MCV 92.0 MCH 30.8 MCHC 33.5 RDW Std Deviation 58.5 H RDW Coeff of Gisele 17.6 H Plt Count 169 MPV 11.0 Immature Gran % (Auto) 0.7 Neut % (Auto) 60.7 Lymph % (Auto) 15.2 [place] % (Auto) 22.3 Eos % (Auto) 0.7 Baso % (Auto) 0.4 Neut # (Auto) 5.86 Lymph # (Auto) 1.47 [place] # (Auto) 2.15 H Eos # (Auto) 0.07 Baso # (Auto) 0.04 Immature Gran # (Auto) 0.07 PT Cancelled 48.6 H INR Cancelled 5.2 H Sodium 133 L Potassium 3.6 Chloride 102 Carbon Dioxide 24 Anion Gap 7 BUN 47 H Creatinine 2.55 H D Est Cr Clr Drug Dosing 15.3 eGFR 19.23 BUN/Creatinine Ratio 18.4 Glucose 73 Calcium 8.6 C-Reactive Protein 25.70 H Procalcitonin Urine Color Urine Appearance Urine pH Ur Specific [place] Urine Protein Urine Glucose (UA) Urine Ketones Urine Blood Urine Nitrite Urine Bilirubin Urine Urobilinogen Ur Leukocyte Esterase Urine WBC (Auto) Urine RBC (Auto) U Hyaline Cast (Auto) U Epithel Cells (Auto) Urine Bacteria (Auto) Adenovirus (PCR) B. pertussis DNA (PCR) B.parapertussis DNA PCR C. pneumoniae DNA (PCR) Coronavirus OC43 (PCR) Coronavirus HKU1 (PCR) Coronavirus 229E (PCR) SARS-CoV-2 (PCR) Coronavirus NL63 (PCR) Human Metapneumovir PCR Influenza Type A (PCR) Influenza Type B (PCR) M. pneumoniae (PCR) Parainfluenza 1 (PCR) Parainfluenza 2 (PCR) Parainfluenza 3 (PCR) Parainfluenza 4 (PCR) RSV (PCR) Entero/Rhino (PCR) Staphylococcus sp PCR mecA/C-Methicil Resis Gene Staph lugdunensis PCR Bld Cult ID Panel PCR Diagnostic Findings Microbiology 08/10/24 19:13 Blood Aerobic Blood Culture - Preliminary Staphylococcus lugdunensis 08/10/24 19:13 Blood Anaerobic Blood Culture - Preliminary Staphylococcus lugdunensis 08/10/24 19:13 Blood Aerobic Blood Culture - Preliminary Gram positive cocci clusters 08/10/24 19:13 Blood Anaerobic Blood Culture - Preliminary Staphylococcus lugdunensis 08/10/24 Unknown Urine,Straight Cath Urine Culture - Preliminary No growth - Less than 1,000 colonies/mL, Final report to follow. Lumbar Spine X-Ray 08/10/24 13:17 XR lumbar spine 2-3V CLINICAL HISTORY: low back pain COMPARISON STUDY: None FINDINGS: There is mild left convex upper lumbar scoliosis. There is interbody fusion from L4 through S1 with no hardware competition. There is moderate diffuse degenerative disc disease. No fracture or subluxation. IMPRESSION: Scoliosis and degenerative disc disease. ACT 112: Negative or not required by law. Electronically signed by: Andre Plascencia M.D. 08/10/2024 2:16 PM KUB X-Ray 08/10/24 13:19 KUB HISTORY: constipation, low back pain COMPARISON STUDY: 08/02/2024 FINDINGS: Stable lower lumbar fusion and right hip prosthesis. Stable left upper pelvic surgical clips. There is mild retained stool. No bowel obstruction seen. No gross free air. IMPRESSION: No acute findings. ACT 112: Negative or not required by law. The above report was generated using voice recognition software. It may contain grammatical, syntax or spelling errors. Electronically signed by: Andre Plascencia M.D. 08/10/2024 2:15 PM Chest X-Ray 08/10/24 15:48 Technique: A frontal view of the chest was obtained Comparison is made to the prior examination dated 07/26/2024 Findings: There are no definite pulmonary infiltrates. The heart size is at the upper limit of normal. No pleural effusion or pneumothorax is seen. There is right lung base atelectasis. No fracture is noted. There is a prosthetic cardiac valve. Sternal wires are present Impression: Right lung base atelectasis Electronically signed by Hugh Inman 08-10-2024 4:18 PM Abdomen/Pelvis CT 08/10/24 16:11 EXAM: CT Abdomen and Pelvis Without Intravenous Contrast INDICATION: Left flank pain. Fever. TECHNIQUE: Axial computed tomography images of the abdomen and pelvis without intravenous contrast. Sagittal and coronal reformatted images were created and reviewed. This CT exam was performed using one or more of the following dose reduction techniques: automated exposure control, adjustment of the mA and/or kV according to patient size, and/or use of iterative reconstruction technique. COMPARISON: 07/06/2024 FINDINGS: Limitations: None. Lung bases: There is mild dependent atelectasis in the lower lobes. Pleural space: No visualized pleural effusion or pneumothorax. Heart: Stable cardiomegaly and dense valvular calcification. Mediastinum: Stable small to moderate hiatal hernia containing the gastric fundus. ABDOMEN: Liver: Lack of intravenous contrast limits detection of some masses. No abnormality noted. Gallbladder and bile ducts: Cholecystectomy. No ductal dilation or stone noted. Pancreas: No pancreatic mass, calcification, inflammation or ductal dilation noted. Spleen: No significant abnormality noted. Adrenals: No significant abnormality noted. Kidneys and ureters: There is mild cortical atrophy of the left kidney. Stable hypodense nodule left kidney typical of a simple cyst. No further assessment required. There is stable mild cortical scarring of the right kidney. No stone or hydronephrosis. Stomach and bowel: Moderate amounts of formed stool and some layering fluid in the redundant colon. There is mild prominent fluid layering in small bowel loops without obstruction. Scattered colonic diverticulosis noted. No thickening or inflammatory process noted. PELVIS: Appendix: No findings to suggest acute appendicitis. Bladder: Appears normal for the degree of filling. No stones or inflammation. No large mass. Masses may not be detected in the absence of opacification. Reproductive: Hysterectomy. ABDOMEN and PELVIS: Intraperitoneal space: No free air. No significant fluid collection. Bones/joints: Left hip arthroplasty. Degenerative changes in the spine which is scoliotic. There are metallic intervertebral disc spacers L4-L5 and L5-S1. Right hip arthroplasty. Visualized portions appear normal. Soft tissues: No significant abnormality noted. Vasculature: Atherosclerotic calcification of the aorta and branches. No aneurysm. Lymph nodes: No pathologically enlarged lymph nodes. IMPRESSION: 1. Mild nonspecific ileus. No inflammatory process or obstruction. 2. Scarring of both kidneys with slightly more prominent atrophy of the left kidney stable. No stones, hydronephrosis or urinary gas. ACT 112: Negative or not required by law. Electronically signed by Christa Barraza 08-10-2024 5:19 PM Lumbar Spine MRI 08/11/24 12:12 Clinical History: Lumbar radiculopathy Technique: Sagittal and axial T1 and T2-weighted magnetic resonance images were obtained of the lumbar spine without gadolinium contrast. Comparison is made to the CT of the abdomen and pelvis dated 08/10/2024 Findings: Again seen is anterior interbody fusion at L4-5 and L5-S1. There is scoliosis. No listhesis is seen. There are degenerative endplate changes at T12-L1 and to a lesser extent at other levels. There are a few apparent vertebral hemangiomas with characteristic increased T1 and increased T2 signal intensity. No other focal osseous lesion is evident. No fracture is identified. There is no definite sign of infection. There is no sign of acute ligamentous injury. The conus medullaris appears normal, terminating at the level of L1. There are partially visualized left renal cysts At L1-L2, there is a disc bulge with slight encroachment upon both neural foramen. There is no spinal stenosis or clear nerve root compression. At L2-L3, there is a diffuse disc bulge with mild bilateral neural foramen narrowing. There is no spinal stenosis or clear nerve root compression. At L3-L4, there is mild spinal stenosis due to a disc bulge and facet osteoarthritis. There is no visible compression of the traversing nerve roots. There is bilateral neural foramen narrowing, without definite compression of the exiting L3 nerve roots At L4-L5, there is no spinal stenosis or nerve root compromise At L5-S1, there is no spinal stenosis or nerve root compression Impression: 1. Fusion of L4-S1 2. Scoliosis 3. Mild spinal stenosis at L3-4, without visible compression of the traversing nerve roots 4. Multilevel neural foramen narrowing, without definite nerve root compression 5. Left renal cysts Electronically signed by Hugh Inman 08-11-2024 5:50 PM Medications Administered Home Medications Medication Instructions Recorded Confirmed Last Taken atorvastatin 40 mg tablet 40 mg PO HS 07/19/23 07/26/24 05/13/24 metoprolol succinate 25 mg 25 mg PO BID 08/19/23 07/26/24 05/14/24 tablet,extended release 24 hr levothyroxine 50 mcg tablet 50 mcg PO QAM #90 tabs 01/06/24 07/26/24 05/14/24 calcium 600 mg (as 1 tab PO DAILY #90 tabs 03/10/24 07/26/24 05/14/24 carbonate)-vitamin D3 10 mcg (400 unit) tablet citalopram 20 mg tablet 20 mg PO QAM #90 tabs 03/10/24 07/26/24 05/14/24 pramipexole 0.125 mg tablet 0.125 mg PO QPM #90 tabs 04/21/24 07/26/24 05/13/24 pregabalin 100 mg capsule (Lyrica) 100 mg PO PM #90 caps 04/21/24 07/26/24 05/13/24 folic acid 1 mg tablet 0 mg PO DAILY 05/13/24 07/26/24 Unknown amlodipine 2.5 mg tablet 2.5 mg PO QAM 05/14/24 07/26/24 Unknown aspirin 81 mg tablet,delayed 81 mg PO DAILY 06/18/24 07/26/24 Unknown release oxycodone 5 mg tablet 5 mg PO Q6H PRN pain #8 tabs 07/11/24 07/26/24 Unknown oxycodone-acetaminophen 5 mg-325 1 tab PO Q8H PRN pain #10 tabs 07/14/2407/26 Unknown mg tablet allopurinol 100 mg tablet 100 mg PO DAILY #90 tabs 07/22/24 07/26/24 Unknown isosorbide mononitrate 30 mg 30 mg PO QAM #90 tabs 07/22/24 07/26/24 Unknown tablet,extended release 24 hr levetiracetam 500 mg tablet 500 mg PO BID #60 tabs 07/22/24 07/26/24 Unknown (Keppra) lisinopril 5 mg tablet 5 mg PO HS #90 tabs 07/22/24 07/26/24 Unknown warfarin 2 mg tablet See Rx Instructions PO UD #78 tabs 07/24/24 07/26/24 Unknown cyanocobalamin (vitamin B-12) 1,000 mcg IM MONTHLY PRN B12 07/26/24 07/26/24 Unknown 1,000 mcg/mL injection solution Deficiency Active Medications Generic Name Dose Route Start Last Admin Trade Name Freq PRN Reason Stop Dose Admin Acetaminophen 650 mg 07/27/24 22:33 08/10/24 14:32 Acetaminophen 325 Mg Tab PO 08/26/24 22:32 650 mg Q6H PRN Administration Pain Allopurinol 100 mg 07/28/24 11:45 08/12/24 08:58 Allopurinol 100 Mg Tab PO 08/27/24 11:44 100 mg DAILY OLGA Administration Amlodipine Besylate 2.5 mg 07/29/24 09:00 07/30/24 07:32 Amlodipine Besylate 5 Mg Tab PO 08/28/24 08:59 2.5 mg QAM OLGA Administration Atorvastatin Calcium 40 mg 07/26/24 21:00 08/11/24 19:31 Atorvastatin 40 Mg Tab PO 08/25/24 20:59 40 mg HS OLGA Administration Citalopram Hydrobromide 20 mg 07/27/24 09:00 08/12/24 08:58 Citalopram 20 Mg Tab PO 08/26/24 08:59 20 mg QAM OLGA Administration Folic Acid 1 mg 08/05/24 09:00 08/12/24 08:58 Folic Acid 1 Mg Tab PO 08/28/24 08:59 1 mg DAILY OLGA Administration Hydromorphone HCl 0.25 mg 08/11/24 18:35 08/12/24 08:58 Hydromorphone Inj 0.5 Mg/0.5 Ml Syr IV 08/24/24 13:17 0.25 mg Q4H PRN Administration Severe Pain (Scale 7, 8, 9,10) Prochlorperazine 5 mg/ Syringe 5 mls @ 5 mls/min 08/08/24 11:44 08/08/24 13:32 IV 09/07/24 11:43 5 mls/min Q12H PRN Administration Nausea And Vomiting Cefazolin Sodium 2,000 mg in 15 mls @ 3.75 mls/min 08/11/24 12:30 08/11/24 23:32 Ancef 2000mg IV 08/25/24 12:29 3.75 mls/min Q12H OLGA Administration Sodium Chloride 500 mls @ 125 mls/hr 08/12/24 10:30 08/12/24 11:02 Nss IV 08/12/24 14:29 125 mls/hr .Q4H OLGA Administration Isosorbide Mononitrate 30 mg 07/27/24 09:00 08/08/24 09:12 Isosorbide [place] Extended Rel 30 Mg Tabcr PO 08/26/24 08:59 Not Given QAM OLGA Levetiracetam 500 mg 07/26/24 21:00 08/12/24 08:58 Levetiracetam 500 Mg Tab PO 08/25/24 20:59 500 mg BID OLGA Administration Levothyroxine Sodium 50 mcg 07/27/24 06:30 08/12/24 04:25 Levothyroxine Sodium 50 Mcg Tablet PO 08/26/24 06:29 50 mcg DAILYBB OLGA Administration Lidocaine 1 patch 08/11/24 09:00 08/12/24 08:58 Lidocaine 5% 1 Patch TD 09/10/24 08:59 1 patch QAM OLGA Administration Metoprolol Succinate 25 mg 08/01/24 09:00 08/12/24 08:58 Metoprolol Succ 25mg Ext Rel Tab PO 08/31/24 08:59 25 mg QAM OLGA Administration Miscellaneous 1 each 08/10/24 21:00 08/11/24 19:33 Remove Lidoderm Patch N/A 09/09/24 20:59 1 each DAILY@2100 OLGA Administration Pantoprazole Sodium 40 mg 07/29/24 21:00 08/12/24 08:58 Pantoprazole 40 Mg Tab PO 08/28/24 20:59 40 mg BID OLGA Administration Polyethylene Glycol 17 gm 08/04/24 21:00 08/12/24 09:01 Polyethylene (Miralax) 17 Gm Pack PO 09/03/24 20:59 Not Given BID OLGA Pramipexole Dihydrochloride 0.125 mg 07/26/24 21:00 08/11/24 19:32 Pramipexole Dihydrochlo 0.25 Mg Tab PO 08/25/24 20:59 0.125 mg QPM OLGA Administration Pregabalin 100 mg 07/26/24 21:00 08/11/24 19:33 Pregabalin 100 Mg Cap PO 08/25/24 20:59 100 mg PM OLGA Administration Senna/Docusate Sodium 1 tab 07/29/24 13:45 08/12/24 09:01 Docusate Sodium/Senna 50/8.6mg Tab PO 08/28/24 13:44 Not Given QAM OLGA Simethicone 80 mg 07/28/24 15:52 08/01/24 11:02 Simethicone 80 Mg Chew PO 08/27/24 15:51 80 mg Q6H PRN Administration Flatulence Tramadol HCl 50 mg 08/11/24 18:35 08/11/24 19:34 Tramadol Hcl 50 Mg Tablet PO 09/02/24 18:10 50 mg Q4H PRN Administration Mod-Sev Pain (Scale 4-10)
--- NOTE | 2024-08-12 11:56 | Hospitalist Progress Note ---
Date of Service August 12, 2024 Assessment & Plan (1) Bacteremia: (2) Lumbar back pain: (3) Acute upper GI bleeding: (4) Acute blood loss anemia: (5) H/O mitral valve replacement with mechanical valve: (6) Hx of aortic valve replacement, mechanical: Jorge Man is a 74 year old female with a PMH of TIA, seizure like activity, hx of mechanical mitral and aortic valve, CKD, ankle sprain who presented to the ER with coffee-ground emesis x 48 hours with melena. Supratherapeutic INR on admission (6.7), reversed in the ED. EGD without source of bleeding. Hgb 5.6 on arrival - s/p 2units PRBCs and Venofer x1. Hgb remained stable and was started on heparin drip for bridging to Coumadin which was resumed on 07/28. Baseline chronic anemia - B12/folate/TSH WNL. Iron studies consistent with anemia of chronic disease. New onset localized back pain and low grade fevers prompted infectious workup, which discovered gram positive bacteremia. Biofire + for Coronavirus HKU1. CXR with right lung base atelectasis. KUB with mild retained stool. CT A/P without inflammatory process/obstruction, no stones, hydronephrosis or urinary gas. Lumbar MRI obtained due to concern for discitis/osteomyelitis -- revealed no definitive sign of infection, noted fusion of L4-S1, multilevel neural foramen narrowing without definitive nerve root compression. #Gram positive bacteremia / Lumbar back pain Source of bacteremia remains unclear -- only new symptom is new onset lumbar back pain Blood cultures positive with Staph lugdunensis in 2/2 cultures. Urine culture prelim negative Plan to repeat blood cultures on 08/13/24 Continue Cefazolin 2 g Q12h due to renal function CRP continues to increase now at 25.7; still without leukocytosis Continue pain regimen Tylenol mild pain, tramadol 50 mg q4h moderate pain, Dilaudid 0.25 mg q4h severe pain, Lidocaine patch Ortho spine consulted, appreciate recs Infectious disease consulted, appreciate recs #Hx of Mitral and Atrial Valve replacement/ Hx of stroke Reason for Coumadin (goal 2.5-3.5), takes 2 mg daily except skips Saturday dose. Follows with Coumadin clinic. INR continues to rise/still supratherapeutic at 5.2 now, suspect secondary to acute infection (source remains unclear at this time) Held doses of Coumadin 08/11-08/[address] Blankenship Repeat INR in AM Transferred to [facility] due to concern for infectious endocarditis in setting of bacteremia with valve replacements #JAMES superimposed on CKD Baseline Cr ~2.2 JAMES improving with Cr now 2.55 Lisinopril discontinued Avoid nephrotoxins, renal dose meds when appropriate AM BMP #Acute GI bleed/ Acute blood loss anemia Continue PPI. No signs of active GI bleeding On ASA for hx of stroke like symptoms - this is held Hgb stable at 8.1, recheck every other day #Constipation Continue bowel regimen KUB 08/10 with mild retained stool, no bowel obstruction, no gross free air BM 08/11, continue to monitor stools #HTN Now with hypotension - but asymptomatic. Patient reports she does not cook with a lot of salt but diet upgraded to regular to mimic home environment. Lisinopril and Imdur discontinued For discharge: cut amlodipine and metoprolol in half #SVT Concerns for A-fib during EGD, but not documented on EKG. Cardiology consulted - did not appear as afib possible SVT vs flutter. Regardless will be anticoagulated with artificial valves. Already on metoprolol. Consider 30-day monitor on discharge Echo showing left to right shunt - cardiology recommending outpatient follow up #Left Ankle Sprain Reached out to Dr. Hassan 08/05 - recs include: weight bear as tolerated in boot w/ walker. OT eval weight bearing. While resting in bed go through ROM exercises w/ ankle. Circles and go through alphabet. Can resume formal therapy on discharge. Will likely be slow to recover but pain should start to subside in 2- 3 weeks w/ continued therapy. Podiatry outpatient f/u if needed. Discussed podiatry recommendations w/ PT 08/06. Chronic conditions: Seizures: Keppra Mental Health: Celexa Hypothyroidism: Synthroid Gout: Allopurinol Dispo: continued inpatient stay given bacteremia with unclear source. PT/ OT recommending Home with and 07/01 support DVT proph: Coumadin Discussed with Dr Blankenship Updated at bedside Consulted ID Admission and Anticipated Discharge Date Admission Date: July 26, 2024 Subjective Patient seen and evaluated at bedside with her present. She continues to report significant back pain localized to the L5 region. She denies any radicular symptoms down her legs bilaterally. She does report some left lower quadrant abdominal tenderness on palpation and believes that she is constipated. She denies nausea, vomiting, chest pain, urinary symptoms, dyspnea. Updated regarding plan. Awaiting specialists' evaluations/recommendations. No additional complaints or concerns at this time. Physical Exam Physical Exam: General: No acute distress when resting in bed. Elderly female. Hard of hearing. Cardiac: Tachycardic rate in 100s Pulm: Clear to auscultation bilaterally without wheezes, rales or rhonchi. Normal respiratory effort. 94% on room air. Abdominal: Soft, nontender, slightly distended. Bowel sounds present. No CVA tenderness. Spine: Localized tenderness in lumbar region. Neuro: A&O x3. No focal neurological deficits. Results & Data Results & Data Vital Signs (Past 12 Hours) Vital Signs Temp Pulse Pulse Pulse Resp BP BP 08/12/24 08:55 99.1 F 100 H 18 102/57 L 08/12/24 06:45 109 H 08/12/24 03:43 98.6 F 105 H 18 105/60 08/12/24 00:27 97.5 F L 107 H 16 103/65 08/11/24 23:43 98.6 F 91 H 18 106/58 L Pulse Ox O2 Del Method 08/12/24 08:55 91 Room Air 08/12/24 06:45 08/12/24 03:43 93 Room Air 08/12/24 00:27 91 Room Air 08/11/24 23:43 92 Room Air Laboratory Results Reviewed CBC with differential Reviewed coags Reviewed BMP, CRP Reviewed blood cultures PG Care Time/CCT Total # of Minutes Spent Total Time Spent with Patient: Total time spent is greater than 50% in coordination of care (as documented) at patient's floor/unit and/or counseling patient: Coding Level of Care Code 48403 SUB INP/OBS CARE 3/50MIN Diagnoses Bacteremia R78.81 Lumbar back pain M54.50 Acute upper GI bleeding K92.2 Acute blood loss anemia D62 H/O mitral valve replacement with mechanical valve Z95.2 Hx of aortic valve replacement, mechanical Z95.2
--- NOTE | 2024-08-12 12:13 | Consultation ---
Date of Consultation August 12, 2024 Assessment & Plan (1) Lumbar back pain: I have reviewed imaging with the patient. Dr. Sanchez has reviewed imaging and treatment plan as well. As of right now there is no acute issues affecting her lumbar spine on imaging. There is only very mild stenosis at adjacent level. In light of her bacteremia setting she certainly could have a brewing discitis. Again this is not evident on MRI currently. Would recommend repeating MRI early next week to see if there are any changes. Otherwise ambulate ad elana. History of Present Illness Reason for Consultation: Back pain Attending Physician: Lee Paredes MD History of Present Illness This is a 74-year-old female who has been admitted for the past 17 days with multiple medical issues most recently including bacteremia with lower back pain x 3 days. She had a fall several weeks ago prior to admission. She sprained her left ankle. She usually ambulates with a walker at home. She has no radicular leg pain. She had a prior lumbar fusion many many years ago in [place]. Unknown surgeon. No complications. Current pain is a band across her waistline. Allergies Allergy/AdvReac Type Severity Reaction Status Date / Time doxycycline Allergy Unknown CAN'T Verified 07/26/24 12:18 REMEMBER sulfamethoxazole Allergy Unknown CAN'T Verified 07/26/24 12:18 REMEMBER trimethoprim Allergy Unknown CAN'T Verified 07/26/24 12:18 REMEMBER Home Medications Medication Instructions Recorded Confirmed Type atorvastatin 40 mg tablet 40 mg PO HS 07/19/23 07/26/24 History metoprolol succinate 25 mg 25 mg PO BID 08/19/23 07/26/24 History tablet,extended release 24 hr levothyroxine 50 mcg tablet 50 mcg PO QAM #90 tabs 01/06/24 07/26/24 Rx calcium 600 mg (as 1 tab PO DAILY #90 tabs 03/10/24 07/26/24 Rx carbonate)-vitamin D3 10 mcg (400 unit) tablet citalopram 20 mg tablet 20 mg PO QAM #90 tabs 03/10/24 07/26/24 Rx pramipexole 0.125 mg tablet 0.125 mg PO QPM #90 tabs 04/21/24 07/26/24 Rx pregabalin 100 mg capsule (Lyrica) 100 mg PO PM #90 caps 04/21/24 07/26/24 Rx folic acid 1 mg tablet 0 mg PO DAILY 05/13/24 07/26/24 History amlodipine 2.5 mg tablet 2.5 mg PO QAM 05/14/24 07/26/24 History aspirin 81 mg tablet,delayed 81 mg PO DAILY 06/18/24 07/26/24 History release oxycodone 5 mg tablet 5 mg PO Q6H PRN pain #8 tabs 07/11/24 07/26/24 Rx oxycodone-acetaminophen 5 mg-325 1 tab PO Q8H PRN pain #10 tabs 07/14/24 07/26/24 Rx mg tablet allopurinol 100 mg tablet 100 mg PO DAILY #90 tabs 07/22/24 07/26/24 Rx isosorbide mononitrate 30 mg 30 mg PO QAM #90 tabs 07/22/24 07/26/24 Rx tablet,extended release 24 hr levetiracetam 500 mg tablet 500 mg PO BID #60 tabs 07/22/24 07/26/24 Rx (Keppra) lisinopril 5 mg tablet 5 mg PO HS #90 tabs 07/22/24 07/26/24 Rx warfarin 2 mg tablet See Rx Instructions PO UD #78 tabs 07/24/24 07/26/24 Rx cyanocobalamin (vitamin B-12) 1,000 mcg IM MONTHLY PRN B12 07/26/24 07/26/24 History 1,000 mcg/mL injection solution Deficiency Patient History Medical History Acute kidney injury Open fracture of left distal radius (08/19/23) from a fall-saw orthopedics in the ED and was admitted to [place] per ortho note History of CVA (cerebrovascular accident) History of transfusion of packed RBC 08/2023 1 unit CKD (chronic kidney disease), stage III Surgical History S/P ORIF (open reduction internal fixation) fracture Lt distal radius 08/23/23 Dr. Oscar Jones S/P total abdominal hysterectomy H/O neck surgery History of cholecystectomy H/O oophorectomy S/P repair of paraesophageal hernia History of total right hip replacement S/P lumbar fusion H/O hemorrhoidectomy Family History Father Heart disease Mother Stroke Social History Smoking Status: Never smoker Second Hand Exposure: No; Do You Dip or Chew Tobacco: No; Hx Alcohol Use: No Hx Substance Use: No Preferred Language: Burundian Communication Ability: Effective Visual Impairment: No Limitations Hearing Ability: Hard of Hearing Slp Teacher Required: No Beliefs That Will Affect Care: None marital status: Current Living Situation: Spouse Current Living Situation Comment: Trailer current occupational status: retired How many Children do You have: 2 Feels Safe at Home: Yes Childhood Exposure to Second-Hand Smoke: No Diet: regular Diet Comment: regular caffeine: No Dental Care, Regularly: No Physical Activity Frequency: Does not Exercise Seatbelt Use: always Sunscreen Use: No Assistive Devices: Cane and Walker Review of Systems Review of Systems: All systems reviewed & are unremarkable except as noted in HPI & below Physical Exam Physical Exam: She is laying in bed. She is alert and oriented x 3. She is seen in conjunction with her . She is cooperative exam. Rolling over in bed is quite painful for her. She has a lidocaine patch on midline lumbar spine. She has some tenderness over the left sciatic notch. She has bruising over the left axilla Results & Data Vital Signs (Past 12 Hours) Vital Signs Temp Pulse Pulse Pulse Resp BP BP 08/12/24 11:59 36.7 C 101 H 16 94/56 L 08/12/24 08:55 37.3 C 100 H 18 102/57 L 08/12/24 06:45 109 H 08/12/24 03:43 37.0 C 105 H 18 105/60 08/12/24 00:27 36.4 C L 107 H 16 103/65 Pulse Ox O2 Del Method 08/12/24 11:59 93 Room Air 08/12/24 08:55 91 Room Air 08/12/24 06:45 08/12/24 03:43 93 Room Air 08/12/24 00:27 91 Room Air Diagnostic Findings [facility], [place] [phone] Magnetic Resonance Report Patient: CHEYANNE JETER Admit Date: 07/26/24 MR#: [id number] Address[address]: [address] Acct ID:[id number] Address2: Date: 1950 [facility] [place] Zip: [id number] Age: 74 Location: 3W Sex: F Room/Bed: [facility] Att Phy: Cristhian Edgar MD Diagnosis: ACUTE GI BLEED,ACUTE BLOOD LOSS ANEMIA Shelley Phy: Abigail Saldana MD Service Date: 08/11/24 Fam Phy: Interpreting Phy: Hugh Inman MDAdmit Phy: Cristhian Edgar MD Ordering Phy: Yesi Modi PA-C cc: ~ Clinical History: Lumbar radiculopathy Technique: Sagittal and axial T1 and T2-weighted magnetic resonance images were obtained of the lumbar spine without gadolinium contrast. Comparison is made to the CT of the abdomen and pelvis dated 08/10/2024 Findings: Again seen is anterior interbody fusion at L4-5 and L5-S1. There is scoliosis. No listhesis is seen. There are degenerative endplate changes at T12-L1 and to a lesser extent at other levels. There are a few apparent vertebral hemangiomas with characteristic increased T1 and increased T2 signal intensity. No other focal osseous lesion is evident. No fracture is identified. There is no definite sign of infection. There is no sign of acute ligamentous injury. The conus medullaris appears normal, terminating at the level of L1. There are partially visualized left renal cysts At L1-L2, there is a disc bulge with slight encroachment upon both neural foramen. There is no spinal stenosis or clear nerve root compression. At L2-L3, there is a diffuse disc bulge with mild bilateral neural foramen narrowing. There is no spinal stenosis or clear nerve root compression. At L3-L4, there is mild spinal stenosis due to a disc bulge and facet osteoarthritis. There is no visible compression of the traversing nerve roots. There is bilateral neural foramen narrowing, without definite compression of the exiting L3 nerve roots At L4-L5, there is no spinal stenosis or nerve root compromise At L5-S1, there is no spinal stenosis or nerve root compression Impression: 1. Fusion of L4-S1 2. Scoliosis 3. Mild spinal stenosis at L3-4, without visible compression of the traversing nerve roots 4. Multilevel neural foramen narrowing, without definite nerve root compression 5. Left renal cysts Electronically signed by Hugh Inman 08-11-2024 5:50 PM Dictated: 08/11/24 [id number] Transcribed:
[2024-08-13 08:30] LABS: Hematocrit (blood only) 21.3 % (37.0-47.0); Mean Corpuscular Hemoglobin 30.8 pg (25.0-34.0); Mean Corpuscular Hgb Conc 32.9 g/dL (32.0-36.0); Mean Corpuscular Volume 93.8 fL (80.0-100.0); Mean Platelet Volume 10.9 fL (9.4-12.4); Platelet Count 197 K/uL (130-400); RDW Coefficient of Variation 17.5 % (11.5-14.5); RDW Standard Deviation 59.8 fL (36.4-46.3); Red Blood Count 2.27 M/uL (4.20-5.40); White Blood Count 5.37 K/ul (4.8-10.8)
[2024-08-13 08:52] LABS: BUN Creatinine Ratio 18.3 (10-20); C Reactive Protein 21.78 mg/dl (0-0.5); Creatinine Clr Calc Pharmacy 16.6 ml/min; Potassium 3.5 mmol/L (3.5-5.1)
[2024-08-13 08:57] LABS: INR 3.8 (0.9-1.1); Prothrombin Time 36.8 Seconds (9.0-12.0)
--- NOTE | 2024-08-13 10:57 | Hospitalist Progress Note ---
Date of Service August 13, 2024 Assessment & Plan (1) Bacteremia: (2) Lumbar back pain: (3) Acute upper GI bleeding: (4) Acute blood loss anemia: (5) H/O mitral valve replacement with mechanical valve: (6) Hx of aortic valve replacement, mechanical: Jorge Man is a 74 year old female with a PMH of TIA, seizure like activity, hx of mechanical mitral and aortic valve, CKD, ankle sprain who presented to the ER with coffee-ground emesis x 48 hours with melena. Supratherapeutic INR on admission (6.7), reversed in the ED. EGD without source of bleeding. Hgb 5.6 on arrival - s/p 2units PRBCs and Venofer x1. Hgb remained stable and was started on heparin drip for bridging to Coumadin which was resumed on 07/28. Baseline chronic anemia - B12/folate/TSH WNL. Iron studies consistent with anemia of chronic disease. New onset localized back pain and low grade fevers prompted infectious workup, which discovered gram positive bacteremia. Biofire + for Coronavirus HKU1. CXR with right lung base atelectasis. KUB with mild retained stool. CT A/P without inflammatory process/obstruction, no stones, hydronephrosis or urinary gas. Lumbar MRI obtained due to concern for discitis/osteomyelitis -- revealed no definitive sign of infection, noted fusion of L4-S1, multilevel neural foramen narrowing without definitive nerve root compression. #Gram positive bacteremia / Lumbar back pain Source of bacteremia remains unclear -- only new symptom is new onset localized lumbar back pain Blood cultures positive with Staph lugdunensis in 2/2 cultures. Urine culture Alloscardovia omnicolens Repeat blood cultures pending Continue Cefazolin 2 g Q12h due to renal function CRP now downtrending 25.7 --> 21.7; still without leukocytosis Continue pain regimen Tylenol mild pain, tramadol 50 mg q4h moderate pain, Dilaudid 0.25 mg q4h severe pain, Lidocaine patch Ortho spine consulted -- recommend repeat lumbar MRI early next week to eval for any changes Infectious disease consulted, appreciate recs HANNAH recommended. However after discussion with new car make ready mechanic, Dr. Higgins recommended deferring HANNAH until hgb is stabilized due to risks>benefits and this is not emergent #Hx of Mitral and Atrial Valve replacement/ Hx of stroke Reason for Coumadin (goal 2.5-3.5), takes 2 mg daily except skips Saturday dose. Follows with Coumadin clinic. INR remains supratherapeutic but decreasing from 5.2 --> 3.8 now, suspect secondary to acute infection (source remains unclear at this time) Held doses of Coumadin 08/11, 08/12, 08/[address] Blankenship Repeat INR in AM #Acute GI bleed/ Acute blood loss anemia Continue PPI On ASA for hx of stroke like symptoms - this is held Hgb steadily declining without signs of active bleeding Hgb 08/13 AM at 7.0, repeat in afternoon at 7.3 Repeat CBC in AM. Monitor for signs of active bleeding #JAMES superimposed on CKD Baseline Cr ~2.2 JAMES resolved with Cr 2.35 Lisinopril discontinued Avoid nephrotoxins, renal dose meds when appropriate AM BMP #Constipation Continue bowel regimen KUB 08/10 with mild retained stool, no bowel obstruction, no gross free air BM 08/11, continue to monitor stools #HTN Now with ongoing hypotension - but asymptomatic. Patient reports she does not cook with a lot of salt but diet upgraded to regular to mimic home environment. Lisinopril and Imdur discontinued For discharge: cut amlodipine and metoprolol in half #SVT Concerns for A-fib during EGD, but not documented on EKG. Cardiology consulted - did not appear as afib possible SVT vs flutter. Regardless will be anticoagulated with artificial valves. Already on metoprolol. Consider 30-day monitor on discharge Echo showing left to right shunt - cardiology recommending outpatient follow up #Left Ankle Sprain Reached out to Dr. Hassan 08/05 - recs include: weight bear as tolerated in boot w/ walker. OT eval weight bearing. While resting in bed go through ROM exercises w/ ankle. Circles and go through alphabet. Can resume formal therapy on discharge. Will likely be slow to recover but pain should start to subside in 2- 3 weeks w/ continued therapy. Podiatry outpatient f/u if needed. Discussed podiatry recommendations w/ PT 08/06. Chronic conditions: Seizures: Keppra Mental Health: Celexa Hypothyroidism: Synthroid Gout: Allopurinol Dispo: continued inpatient stay given bacteremia with unclear source. PT/ OT recommending Home with HH and 07/01 support DVT proph: Coumadin (currently held), SCDs Discussed case with cardiology, cancelled HANNAH Repeated and trended H&H Admission and Anticipated Discharge Date Admission Date: July 26, 2024 Subjective Patient seen and evaluated at bedside. She continues to endorse localized lumbar back pain. She states the pain regimen keeps this pain controlled. She denies any active bleeding including hematuria, melena, hematochezia, hemoptysis. Denies fever, chills, abdominal pain, chest pain, dyspnea. We discussed the recommendation of HANNAH by ID, as well as low hgb on AM labs with plan to repeat this afternoon. No additional complaints or concerns at this time. Physical Exam Physical Exam: General: No acute distress when resting in bed. Elderly female. Hard of hearing. Cardiac: NSR in 60s. Reviewed telemetry and patient converted from A fib to NSR at 211908/12/24. Pulm: Clear to auscultation bilaterally without wheezes, rales or rhonchi. Normal respiratory effort. 94% on room air. Abdominal: Soft, nontender, nondistended. Bowel sounds present. No CVA tenderness. Spine: Localized tenderness in lumbar region. Neuro: A&O x3. No focal neurological deficits. Results & Data Results & Data Vital Signs (Past 12 Hours) Vital Signs Temp Pulse Pulse Resp BP Pulse Ox O2 Del Method 08/13/24 08:00 Room Air 08/13/24 07:49 97.9 F 59 L 16 101/53 L 94 Room Air 08/13/24 07:00 60 08/13/24 02:50 97.5 F L 62 16 102/48 L 94 Room Air 08/12/24 23:02 98.8 F 69 18 109/48 L 93 Room Air 08/12/24 22:48 Room Air Laboratory Results Reviewed CBC Reviewed BMP, CRP Reviewed coags Reviewed blood cultures Diagnostic Findings Reviewed telemetry PG Care Time/CCT Total # of Minutes Spent Total Time Spent with Patient: Total time spent is greater than 50% in coordination of care (as documented) at patient's floor/unit and/or counseling patient: Coding Level of Care Code 88905 SUB INP/OBS CARE 3/50MIN Diagnoses Bacteremia R78.81 Lumbar back pain M54.50 Acute upper GI bleeding K92.2 Acute blood loss anemia D62 H/O mitral valve replacement with mechanical valve Z95.2 Hx of aortic valve replacement, mechanical Z95.2
--- NOTE | 2024-08-13 13:46 | Infectious Disease Progress Nt ---
Date of Service August 13, 2024 Assessment & Plan (1) Lumbar back pain: (2) Bacteremia: (3) Fever: Plan This is a 74-year-old female with a past medical history of TIA, seizure-like activity, mechanical mitral valve and aortic valve replacement on warfarin, left distal radius fracture status post ORIF, lumbar fusion, presents on 07/26/2024 with coffee ground emesis with melena. She fell and sprained her ankle on 07/06/2024. Since that time she has been taking ibuprofen every 6 hours. Per EMS she was reportedly weak and pale on their arrival. Blood pressures were in the 80s. This improved with IV fluid. Admission H&H 5.6/17.5. INR supratherapeutic at 6.7. Received vitamin K in the ED and 2 units of packed red blood cells. She was started on Protonix gtt. following an IV bolus. She was evaluated by GI and underwent an EGD on 07/26/2024, which showed old blood in the gastric body, but no obvious source. There was suspicion for mucosal bleeding 2/2 supratherapeutic INR. Course complicated by SVT versus atrial tachycardia or atrial flutter during EGD, but no recurrence. She was evaluated by cardiology. She underwent echocardiogram on 07/27/2024 which showed acceptable transvalvular gradient across the mechanical aortic valve and the mechanical mitral valve. Possible left to right shunt into the right atrium. Her course was further complicated with fever with a Tmax of 38.1 on 08/10/2024. Blood cultures were obtained and grew Staphylococcus lugdunensis in 4/4 bottles. Mark daniels also complained of sudden onset of left flank pain. She denied urinary symptoms. Bio fire was positive for coronavirus H KU I. Chest x-ray showed a right lung base atelectasis. KUB showed mild retained stool. CTAP showed mild nonspecific ileus, no inflammatory process or obstruction. Scarring of both kidneys more prominent atrophy of the left kidney which was stable. No stones, hydronephrosis or urinary gas lumbar. Spine shows fusion of L4-S1, scoliosis, mild spinal stenosis at L3-4 without visible compression, multilevel neural foramen narrowing without compression and left renal cysts. She has no leukocytosis. CRP 14.37-->. 25.70. Procalcitonin 3.47.. She has been afebrile for greater than 48 hours. She is currently on cefazolin. A repeat echo cardiogram obtained 08/11/2024 shows well-seated prosthetic aortic and mitral valve. No valvular vegetations. ID consulted for GPC bacteremia of unknown etiology. Microbiology: Blood cultures 08/10/2024: 4/ bottles Staphylococcus lugdunensis ( S oxa) Urine culture 08/10/2024 20 K [employer] omnicolens Blood cultrue 08/12 NGTD Antibiotics: Cefazolin 08/11ongoing # Staphylococcus lugdunensis bacteremia of unknown etiology # Coffee-ground emesis, melena resolved # Status post mitral valve replacement, mechanical # status post aortic valve replacement, mechanical # status post lumbar spinal fusion, hardware in place # status post left radius ORIF # Coronavirus H KU 1 positive # Tmp sulfa and doxy allergy- unk rxn # CKD Discussion: Source of staph lurichelleunensis bacteremia unclear. This is a coagulase-negative staph which is part of skin nicole however unlike other CONS this can cause significant disease similar to Staphylococcus aureus. It has been associated with skin and soft tissue infections, endocarditis, bacteremia without endocarditis, bone and joint infections, hardware infections. She has 2 mechanical valves (aortic, mitral), spinal hardware and s/p L radius hardwares TTE completed on 07/27 and on 08/11 without evidence of valve vegetations or abnormalities. The mechanical valves seem to be well-seated. She complains of back pain but MRI spine is without evidence of spinal infection. She does not have any obvious signs of skin and soft tissue infection on exam. No pain at radius, Urine culture growing only 20K [employer] omnicolens without ja urinary symptoms . Her ? L flank pain/ left sided pain seems to be in the setting of prior fall as area is slightly bruised and not from an active UTI. In any case, cefazolin should cover as this organism is usually susceptible to most beta- lactams. 08/13 Seen by Ortho. Plan for repeat MRI next week. No acute findings currently on imaging however cannot rule out a brewing discitis thus recommend repeating MRI HANNAH on hold per cards until hemoglobin stabilized. Hemoglobin today 7.1 Recommendations: Continue cefazolin 2 g IV Q12 hours (creatinine clearance 16.6 ) . Pending HANNAH. Plan to pursue once hemoglobin stabilizes per card Follow up 08/09 ID will continue to follow. Olga Lidia Simons MD, MPH Infectious Disease [facility], ID Division Call [phone] with questions Admission and Anticipated Discharge Date Admission Date: July 26, 2024 Subjective This patient recommendation is based on a telemedicine consult request which was completed asynchronously through chart review and information provided by the primary physician. The patient was not seen or examined today. The evaluation is consultative in nature and all patient care and treatment decisions can either be accepted or rejected by the patient's primary hospital-based treating physician using their own independent medical judgment for their patient. Time Spent Reviewing Chart: 31+ minutes Chart reviewed. No telepresnter available for live visit. She still complains of lumbar back pain. Seen by Ortho. Plan for repeat MRI next week. HANNAH on hold until hemoglobin stabilized. H/h 01/04 Results & Data Vital Signs (Past 12 Hours) Vital Signs Temp Pulse Pulse Resp BP Pulse Ox O2 Del Method 08/13/24 11:20 36.6 C 60 16 108/54 L 95 Room Air 08/13/24 08:00 Room Air 08/13/24 07:49 36.6 C 59 L 16 101/53 L 94 Room Air 08/13/24 07:00 60 08/13/24 02:50 36.4 C L 62 16 102/48 L 94 Room Air Laboratory Results Short CBC 08/13/24 08/13/24 Range/Units 08:02 14:01 WBC 5.37 (4.8-10.8) K/ul Hgb 7.0 L 7.3 L (12.0-16.0) g/dl Hct 21.3 L 22.3 L (37.0-47.0) % Plt Count 197 (130-400) K/uL BMP 08/13/24 08:02 Sodium 134 L Potassium 3.5 Chloride 104 Carbon Dioxide 27 BUN 43 H Creatinine 2.35 H Glucose 79 Calcium 8.0 L Diagnostic Findings Microbiology 08/12/24 16:57 Blood Aerobic Blood Culture - Preliminary No growth in Aerobic bottle after 24 hours. 08/12/24 16:57 Blood Anaerobic Blood Culture - Preliminary No growth in Anaerobic bottle after 24 hours. 08/12/24 16:56 Blood Aerobic Blood Culture - Preliminary No growth in Aerobic bottle after 24 hours. 08/10/24 19:13 Blood Aerobic Blood Culture - Final Staphylococcus lugdunensis 08/10/24 19:13 Blood Anaerobic Blood Culture - Final Staphylococcus lugdunensis 08/10/24 19:13 Blood Aerobic Blood Culture - Preliminary Staphylococcus lugdunensis 08/10/24 19:13 Blood Anaerobic Blood Culture - Preliminary Staphylococcus lugdunensis 08/10/24 Unknown Urine,Straight Cath Urine Culture - Final [employer] omnicolens Medications Administered Home Medications Medication Instructions Recorded Confirmed Last Taken atorvastatin 40 mg tablet 40 mg PO HS 07/19/23 07/26/24 05/13/24 metoprolol succinate 25 mg 25 mg PO BID 08/19/23 07/26/24 05/14/24 tablet,extended release 24 hr levothyroxine 50 mcg tablet 50 mcg PO QAM #90 tabs 01/06/24 07/26/24 05/14/24 calcium 600 mg (as 1 tab PO DAILY #90 tabs 03/10/24 07/26/24 05/14/24 carbonate)-vitamin D3 10 mcg (400 unit) tablet citalopram 20 mg tablet 20 mg PO QAM #90 tabs 03/10/24 07/26/24 05/14/24 pramipexole 0.125 mg tablet 0.125 mg PO QPM #90 tabs 04/21/24 07/26/24 05/13/24 pregabalin 100 mg capsule (Lyrica) 100 mg PO PM #90 caps 04/21/24 07/26/24 folic acid 1 mg tablet 0 mg PO DAILY 05/13/24 07/26/24 Unknown amlodipine 2.5 mg tablet 2.5 mg PO QAM 05/14/24 07/26/24 Unknown aspirin 81 mg tablet,delayed 81 mg PO DAILY 06/18/24 07/26/24 Unknown release oxycodone 5 mg tablet 5 mg PO Q6H PRN pain #8 tabs 07/11/24 07/26/24 Unknown oxycodone-acetaminophen 5 mg-325 1 tab PO Q8H PRN pain #10 tabs 07/14/24 07/26/24 Unknown mg tablet allopurinol 100 mg tablet 100 mg PO DAILY #90 tabs 07/22/24 07/26/24 Unknown isosorbide mononitrate 30 mg 30 mg PO QAM #90 tabs 07/22/24 07/26/24 Unknown tablet,extended release 24 hr levetiracetam 500 mg tablet 500 mg PO BID #60 tabs 07/22/24 07/26/24 Unknown (Keppra) lisinopril 5 mg tablet 5 mg PO HS #90 tabs 07/22/24 07/26/24 Unknown warfarin 2 mg tablet See Rx Instructions PO UD #78 tabs 07/24/24 07/26/24 Unknown cyanocobalamin (vitamin B-12) 1,000 mcg IM MONTHLY PRN B12 07/26/24 07/26/24 Unknown 1,000 mcg/mL injection solution Deficiency Active Medications Generic Name Dose Route Start Last Admin Trade Name Freq PRN Reason Stop Dose Admin Acetaminophen 650 mg 07/27/24 22:33 08/13/24 16:13 Acetaminophen 325 Mg Tab PO 08/26/24 22:32 650 mg Q6H PRN Administration Pain Allopurinol 100 mg 07/28/24 11:45 08/13/24 08:01 Allopurinol 100 Mg Tab PO 08/27/24 11:44 100 mg DAILY OLGA Administration Amlodipine Besylate 2.5 mg 07/29/24 09:00 07/30/24 07:32 Amlodipine Besylate 5 Mg Tab PO 08/28/24 08:59 2.5 mg QAM OLGA Administration Atorvastatin Calcium 40 mg 07/26/24 21:00 08/12/24 20:25 Atorvastatin 40 Mg Tab PO 08/25/24 20:59 40 mg HS OLGA Administration Citalopram Hydrobromide 20 mg 07/27/24 09:00 08/13/24 08:01 Citalopram 20 Mg Tab PO 08/26/24 08:59 20 mg QAM OLGA Administration Folic Acid 1 mg 08/05/24 09:00 08/13/24 08:01 Folic Acid 1 Mg Tab PO 08/28/24 08:59 1 mg DAILY OLGA Administration Hydromorphone HCl 0.25 mg 08/11/24 18:35 08/13/24 00:33 Hydromorphone Inj 0.5 Mg/0.5 Ml Syr IV 08/24/24 13:17 0.25 mg Q4H PRN Administration Severe Pain (Scale 7, 8, 9,10) Prochlorperazine 5 mg/ Syringe 5 mls @ 5 mls/min 08/08/24 11:44 08/08/24 13:32 IV 09/07/24 11:43 5 mls/min Q12H PRN Administration Nausea And Vomiting Cefazolin Sodium 2,000 mg in 15 mls @ 3.75 mls/min 08/11/24 12:30 08/13/24 11:57 Ancef 2000mg IV 08/25/24 12:29 3.75 mls/min Q12H OLGA Administration Isosorbide Mononitrate 30 mg 07/27/24 09:00 08/08/24 09:12 Isosorbide Dade Extended Rel 30 Mg Tabcr PO 08/26/24 08:59 Not Given QAM OLGA Levetiracetam 500 mg 07/26/24 21:00 08/13/24 08:01 Levetiracetam 500 Mg Tab PO 08/25/24 20:59 500 mg BID OLGA Administration Levothyroxine Sodium 50 mcg 07/27/24 06:30 08/13/24 05:44 Levothyroxine Sodium 50 Mcg Tablet PO 08/26/24 06:29 50 mcg DAILYBB OLGA Administration Lidocaine 1 patch 08/11/24 09:00 08/13/24 08:02 Lidocaine 5% 1 Patch TD 09/10/24 08:59 1 patch QAM OLGA Administration Metoprolol Succinate 25 mg 08/01/24 09:00 08/13/24 08:01 Metoprolol Succ 25mg Ext Rel Tab PO 08/31/24 08:59 25 mg QAM OLGA Administration Miscellaneous 1 each 08/10/24 21:00 08/12/24 20:25 Remove Lidoderm Patch N/A 09/09/24 20:59 1 each DAILY@2100 OLGA Administration Pantoprazole Sodium 40 mg 07/29/24 21:00 08/13/24 08:01 Pantoprazole 40 Mg Tab PO 08/28/24 20:59 40 mg BID OLGA Administration Polyethylene Glycol 17 gm 08/04/24 21:00 08/13/24 08:06 Polyethylene (Miralax) 17 Gm Pack PO 09/03/24 20:59 17 gm BID OLGA Administration Pramipexole Dihydrochloride 0.125 mg 07/26/24 21:00 08/12/24 20:26 Pramipexole Dihydrochlo 0.25 Mg Tab PO 08/25/24 20:59 0.125 mg QPM OLGA Administration Pregabalin 100 mg 07/26/24 21:00 08/12/24 20:25 Pregabalin 100 Mg Cap PO 08/25/24 20:59 100 mg PM OLGA Administration Senna/Docusate Sodium 1 tab 07/29/24 13:45 08/13/24 08:07 Docusate Sodium/Senna 50/8.6mg Tab PO 08/28/24 13:44 1 tab QAM OLGA Administration Simethicone 80 mg 07/28/24 15:52 08/01/24 11:02 Simethicone 80 Mg Chew PO 08/27/24 15:51 80 mg Q6H PRN Administration Flatulence Tramadol HCl 50 mg 08/11/24 18:35 08/13/24 12:15 Tramadol Hcl 50 Mg Tablet PO 09/02/24 18:10 50 mg Q4H PRN Administration Mod-Sev Pain (Scale 4-10)
[2024-08-13 14:48] LABS: Hematocrit (blood only) 22.3 % (37.0-47.0); Hemoglobin 7.3 g/dl (12.0-16.0)
[2024-08-13] MEDS ORDERED: SODIUM CHLORIDE 0.9% 50 ML IV PRN (17:21)
[2024-08-13] MEDS ORDERED: SODIUM CHLORIDE 0.9% 100 ML IV PRN (17:21)
[2024-08-14 07:17] LABS: Hematocrit (blood only) 20.9 % (37.0-47.0); Hemoglobin 6.9 g/dl (12.0-16.0); Mean Corpuscular Hemoglobin 30.4 pg (25.0-34.0); Mean Corpuscular Volume 92.1 fL (80.0-100.0); Mean Platelet Volume 10.4 fL (9.4-12.4); Platelet Count 208 K/uL (130-400); RDW Coefficient of Variation 17.3 % (11.5-14.5); RDW Standard Deviation 58.1 fL (36.4-46.3); Red Blood Count 2.27 M/uL (4.20-5.40); White Blood Count 5.21 K/ul (4.8-10.8)
[2024-08-14 07:32] LABS: Creatinine Clr Calc Pharmacy 17.1 ml/min; Potassium 3.7 mmol/L (3.5-5.1)
[2024-08-14] MEDS ORDERED: SODIUM CHLORIDE 0.9% 100 ML IV PRN (07:54)
[2024-08-14] MEDS ORDERED: SODIUM CHLORIDE 0.9% 50 ML IV PRN (07:54)
[2024-08-14 07:58] LABS: INR 2.7 (0.9-1.1); Prothrombin Time 26.8 Seconds (9.0-12.0)
--- NOTE | 2024-08-14 08:21 | Hospitalist Progress Note ---
Date of Service August 14, 2024 Assessment & Plan (1) Bacteremia: (2) Lumbar back pain: (3) Acute blood loss anemia: (4) Acute upper GI bleeding: (5) H/O mitral valve replacement with mechanical valve: (6) Hx of aortic valve replacement, mechanical: Jorge Man is a 74 year old female with a PMH of TIA, seizure like activity, hx of mechanical mitral and aortic valve, CKD, ankle sprain who presented to the ER with coffee-ground emesis x 48 hours with melena. Supratherapeutic INR on admission (6.7), reversed in the ED. EGD without source of bleeding. Hgb 5.6 on arrival - s/p 2units pRBCs and Venofer x1. Heparin bridge to Coumadin was resumed 07/28. Baseline chronic anemia - B12/folate/TSH WNL. Iron studies consistent with anemia of chronic disease. New onset localized back pain and low grade fevers prompted infectious workup, which discovered Staph lugdunensis bacteremia. Lumbar MRI obtained due to concern for discitis/osteomyelitis -- revealed no definitive sign of infection, will repeat on 08/17. Hgb down trended to 6.9 requiring 1 unit pRBC transfused 08/14. #Gram positive bacteremia / Lumbar back pain Source of bacteremia remains unclear -- only new symptom is new onset localized lumbar back pain, ongoing Blood cultures positive with Staph lugdunensis in 2/2 cultures. Urine culture [employer] omnicolens Repeat blood cultures negative >24 hours Continue Cefazolin 2 g Q12h due to renal function CRP now downtrending, still without leukocytosis. Trend CRP QOD Continue pain regimen Tylenol mild pain, tramadol 50 mg q4h moderate pain, Dilaudid 0.25 mg q4h severe pain, Lidocaine patch Ortho spine consulted -- recommend repeat lumbar MRI 08/17/24 to eval for any changes Infectious disease consulted, appreciate recs HANNAH recommended. However after discussion with arson and bomb investigator, Dr. Higgins recommended deferring HANNAH until hgb is stabilized due to risks>benefits and this is not emergent If source remains unclear and repeat blood cultures negative, anticipate 3-4 weeks of IV antibiotics due to hardware/prosthetic valves If repeat spine MRI shows spine infection or HANNAH shows endocarditis, anticipate 6 weeks of IV antibiotics #Hx of Mitral and Atrial Valve replacement/ Hx of stroke Reason for Coumadin (goal 2.5-3.5), takes 2 mg daily except skips Saturday dose. Follows with Coumadin clinic. Ongoing issues with maintaining therapeutic INR range Held Coumadin 08/11-08/14 due to supratherapeutic INR/possible GI intervention, suspect elevated to acute infection (source still remains unclear) INR now within range at 2.7 - repeat INR in AM #Acute GI bleed/ Acute blood loss anemia Suspected secondary to recent ibuprofen use with recent ankle sprain and supratherapeutic INR (6.7 on admission), was given Vitamin K and Kcentra on admission Received 2 units pRBC 07/26. Hemoccult stool (+) 07/27 EGD 07/26 revealed hematin in gastric body, normal esophagus, normal duodenum. No signs of active bleeding Hgb steadily declining without signs of active bleeding Hgb 6.9 this AM, s/p 1 u pRBC with post-transfusion hgb augmenting appropriately to 9.2 - monitor in AM Continue Protonix 40 mg BID. On ASA for hx of stroke like symptoms - this is held Clear liquid diet, advance as tolerated #JAMES superimposed on CKD Baseline Cr ~2.2 JAMES resolved with Cr 2.35 Lisinopril discontinued #Constipation Continue bowel regimen KUB 08/10 with mild retained stool, no bowel obstruction, no gross free air BM 08/13 (brown), continue to monitor stools #HTN Now with ongoing hypotension - but asymptomatic. Patient reports she does not cook with a lot of salt but diet upgraded to regular to mimic home environment Lisinopril and Imdur discontinued, metoprolol reduced to 12.5 mg daily For discharge: cut amlodipine in half #SVT Concerns for A-fib during EGD, but not documented on EKG Cardiology consulted - did not appear as afib possible SVT vs flutter. R egardless will be anticoagulated with artificial valves. Already on metoprolol. Consider 30-day monitor on discharge Echo showing left to right shunt - cardiology recommending outpatient follow up #Left Ankle Sprain Reached out to Dr. Hassan 08/05 - recs include: weight bear as tolerated in boot w/ walker. OT eval weight bearing. While resting in bed go through ROM exercises w/ ankle. Circles and go through alphabet. Can resume formal therapy on discharge. Will likely be slow to recover but pain should start to subside in 2- 3 weeks w/ continued therapy. Podiatry outpatient f/u if needed. Discussed podiatry recommendations w/ PT 08/06. Chronic conditions: Seizures: Keppra Mental Health: Celexa Hypothyroidism: TSH here normal, continue Synthroid Gout: Allopurinol Dispo: continued inpatient stay given bacteremia with unclear source, anemia requiring blood transfusions, INR stabilization. PT/ OT recommending Home with HH and 07/01 support DVT proph: Coumadin (currently held), SCDs Ordered 1 u pRBC, repeated H&H Discussed case with GI Decreased metoprolol Updated at bedside Admission and Anticipated Discharge Date Admission Date: July 26, 2024 Supervising Physician Co-Signing Physician Notes JOSE Supervision Note: I did not personally see or examine the patient today, but I verified all cole points of JOSE Modi's assessment and plan with the following exceptions/additions: None Subjective Patient seen and evaluated at bedside with her present. She reports feeling fatigued and continues to have localized lumbar back pain. She states the dull ache is always present but intermittent sharp pain is severe. Pain medicine continues to control this. She continues to deny any signs of active bleeding including hematuria, melena, BRBPR, hematemesis, hemoptysis. We discussed that her hemoglobin decreased to 6.9 this morning requiring 1 unit blood transfusion, GI will see her again today for further recommendations, she will continue to see ID for further recommendations as well. Visited patient again in afternoon, still present at bedside. Informed them of repeat H&H with hemoglobin of 9.2, no further need for blood transfusion at this time and will monitor hemoglobin with a.m. labs. Resumed clear liquid diet and can advance as tolerated per GI. Patient reports she walked in the room earlier and sat in the bedside chair for awhile. No additional complaints or concerns at this time. Physical Exam Physical Exam: General: No acute distress when resting in bed, significant pain with certain movements. Elderly female. Hard of hearing. Cardiac: NSR in 60s. Reviewed telemetry which showed NSR 5070s with PVCs, PACs, IVCDs. Pulm: Clear to auscultation bilaterally without wheezes, rales or rhonchi. Normal respiratory effort. 94% on room air. Abdominal: Soft, nontender, nondistended. Bowel sounds present. No CVA tenderness. Spine: Localized tenderness in lumbar region. Neuro: A&O x3. No focal neurological deficits. Results & Data Results & Data Vital Signs (Past 12 Hours) Vital Signs Temp Pulse Pulse Resp BP BP Pulse Ox 08/14/24 07:37 98.6 F 58 L 18 91/48 L 94 08/14/24 07:00 59 L 08/14/24 03:53 97.9 F 54 L 16 98/59 L 92 08/13/24 23:46 08/13/24 22:51 98.1 F 56 L 16 113/56 L 93 08/13/24 22:18 57 L O2 Del Method 08/14/24 07:37 Room Air 08/14/24 07:00 08/14/24 03:53 Room Air 08/13/24 23:46 Room Air 08/13/24 22:51 Room Air 08/13/24 22:18 Laboratory Results Reviewed CBC Reviewed coags Reviewed BMP Reviewed blood cultures Diagnostic Findings Reviewed telemetry PG Care Time/CCT Total # of Minutes Spent Total Time Spent with Patient: Total time spent is greater than 50% in coordination of care (as documented) at patient's floor/unit and/or counseling patient: Coding Level of Care Code 53462 SUB INP/OBS CARE 3/50MIN Diagnoses Bacteremia R78.81 Lumbar back pain M54.50 Acute blood loss anemia D62 Acute upper GI bleeding K92.2 H/O mitral valve replacement with mechanical valve Z95.2 Hx of aortic valve replacement, mechanical Z95.2
--- NOTE | 2024-08-14 12:05 | Infectious Disease Progress Nt ---
Date of Service August 14, 2024 Assessment & Plan (1) Lumbar back pain: (2) Bacteremia: (3) Fever: Plan This is a 74-year-old female with a past medical history of TIA, seizure-like activity, mechanical mitral valve and aortic valve replacement on warfarin, left distal radius fracture status post ORIF, lumbar fusion who presents on 07/26/2024 with coffee ground emesis with melena. She fell and sprained her ankle on 07/06/2024. Since that time she has been taking ibuprofen every 6 hours. Per EMS she was reportedly weak and pale on their arrival. Blood pressures were in the 80s. This improved with IV fluid. Admission H&H 5.6/17.5. INR supratherapeutic at 6.7. Received vitamin K in the ED and 2 units of packed red blood cells. She was started on Protonix gtt. She was evaluated by GI and underwent an EGD on 07/26/2024, which showed old blood in the gastric body, but no obvious source. There was suspicion for mucosal bleeding 2/2 supratherapeutic INR. Course complicated by SVT versus atrial tachycardia or atrial flutter during EGD, but no recurrence. She was evaluated by cardiology. She underwent echocardiogram on 07/27/2024 which showed acceptable transvalvular gradient across the mechanical aortic valve and the mechanical mitral valve. Possible left to right shunt into the right atrium. Her course was further complicated with fever with a Tmax of 38.1 on 08/10/2024. Blood cultures were obtained and grew Staphylococcus lugdunensis in 4/4 bottles. She also complained of sudden onset of left flank pain. She denied urinary symptoms. Bio fire was positive for coronavirus HKU I. Chest x-ray showed a right lung base atelectasis. KUB showed mild retained stool. CTAP showed mild nonspecific ileus, no inflammatory process or obstruction. Scarring of both kidneys and atrophy of the left kidney which was stable. No stones, hydronephrosis. Lumbar Spine shows fusion of L4-S1, scoliosis, mild spinal stenosis at L3-4 without visible compression, multilevel neural foramen narrowing without compression and left renal cysts. She has no leukocytosis. CRP 14.37-->. 25.70. Procalcitonin 3.47.. She has been afebrile for greater than 72 hours. She is currently on cefazolin. A repeat echocardiogram obtained 08/11/2024 shows well-seated prosthetic aortic and mitral valve. No valvular vegetations. ID consulted for GPC bacteremia of unknown etiology. Microbiology: Blood cultures 08/10/2024: 4/ bottles Staphylococcus lugdunensis ( S oxa) Urine culture 08/10/2024 20 K [employer] omnicolens Blood culture 08/12 NGTD Antibiotics: Cefazolin 08/11ongoing # Staphylococcus lugdunensis bacteremia of unknown etiology # Coffee-ground emesis, melena resolved # Status post mitral valve replacement, mechanical # Status post aortic valve replacement, mechanical # Status post lumbar spinal fusion, hardware in place # Status post left radius ORIF # Coronavirus H KU 1 positive, on RA # Tmp sulfa and doxy allergy- unk rxn # CKD Discussion: Source of staph lurichelleunensis bacteremia unclear. This is a coagulase-negative staph which is part of skin nicole however unlike other CONS this can cause significant disease similar to Staphylococcus aureus. It has been associated with skin and soft tissue infections, endocarditis, bacteremia without endocarditis, bone and joint infections, hardware infections. She has 2 mechanical valves (aortic, mitral), spinal hardware and s/p L radius ORIF. TTE completed on 07/27 and on 08/11 without evidence of valve vegetations or abnormalities. The mechanical valves seem to be well-seated. She complains of back pain but MRI spine is without evidence of spinal infection. She does not have any obvious signs of skin and soft tissue infection on exam. She has faint bruising on left ankle and left lateral chest- she reports she bruised herseft after fall last month.. No pain at radius, Urine culture growing only 20K [employer] omnicolens without ja urinary symptoms . Her ? L flank pain/ left sided pain seems to be in the setting of prior fall and not from an active UTI. In any case, cefazolin should cover as this organism is usually susceptible to most beta-lactams. Seen by Ortho. Plan for repeat MRI next week. No acute findings currently on imaging however cannot rule out a brewing discitis thus recommend repeating MRI HANNAH on hold per cards until hemoglobin stabilized. Hemoglobin 7.1--.6.9 Recommendations: Continue cefazolin 2 g IV Q12 hours (creatinine clearance 17) . Pending HANNAH. Plan to pursue once hemoglobin stabilizes per cards Pending repeat MRI spine next week Follow up 08/12 BC Anticipate 3-4 weeks of therapy in setting of multiple hardware if etiology remains unclear and repeat BCx sterile. IF HANNAH c/f endocarditis, or repeat MRI spine c/f spine infection, then anticipate 6 weeks of antibiotics. ID will not round or review the chart over the weekend. Call covering provider at [facility] at [phone] with questions. ID coverage will return on service , Saturday08/17/24. Olga Lidia Simons MD, MPH Infectious Disease [facility], [facility] Division Admission and Anticipated Discharge Date Admission Date: July 26, 2024 Subjective This patient recommendation is based on a telemedicine consult request which was completed asynchronously through chart review and information provided by the primary physician. The patient was not seen or examined today. The evaluation is consultative in nature and all patient care and treatment decisions can either be accepted or rejected by the patient's primary hospital-based treating physician using their own independent medical judgment for their patient. Time Spent Reviewing Chart: 31+ minutes No telepresenter available for live follow up Chart reviewed hgb 6.9, hct 20 Results & Data Vital Signs (Past 12 Hours) Vital Signs Temp Pulse Pulse Resp BP BP BP 08/14/24 11:36 36.7 C 59 L 18 125/52 L 08/14/24 10:36 36.8 C 58 L 18 110/48 L 08/14/24 10:06 36.9 C 60 18 102/47 L 08/14/24 09:51 36.7 C 58 L 16 115/53 L 08/14/24 09:32 36.7 C 58 L 18 100/47 L 08/14/24 07:40 08/14/24 07:37 37.0 C 58 L 18 91/48 L 08/14/24 07:00 59 L 08/14/24 03:53 36.6 C 54 L 16 98/59 L Pulse Ox O2 Del Method 08/14/24 11:36 95 08/14/24 10:36 96 08/14/24 10:06 93 08/14/24 09:51 94 08/14/24 09:32 93 08/14/24 07:40 Room Air 08/14/24 07:37 94 Room Air 08/14/24 07:00 08/14/24 03:53 92 Room Air Laboratory Results Short CBC 08/13/24 08/14/24 Range/Units 14:01 06:35 WBC 5.21 (4.8-10.8) K/ul Hgb 7.3 L 6.9 L* (12.0-16.0) g/dl Hct 22.3 L 20.9 L* (37.0-47.0) % Plt Count 208 (130-400) K/uL BMP 08/14/24 06:35 Sodium 137 Potassium 3.7 Chloride 104 Carbon Dioxide 28 BUN 41 H Creatinine 2.28 H Glucose 85 Calcium 8.0 L Diagnostic Findings Microbiology 08/12/24 16:56 Blood Aerobic Blood Culture - Preliminary No growth in Aerobic bottle after 24 hours. 08/12/24 16:56 Blood Anaerobic Blood Culture - Final 08/12/24 16:57 Blood Aerobic Blood Culture - Preliminary No growth in Aerobic bottle after 24 hours. 08/12/24 16:57 Blood Anaerobic Blood Culture - Preliminary No growth in Anaerobic bottle after 24 hours. 08/10/24 19:13 Blood Aerobic Blood Culture - Final Staphylococcus lugdunensis 08/10/24 19:13 Blood Anaerobic Blood Culture - Final Staphylococcus lugdunensis 08/10/24 19:13 Blood Aerobic Blood Culture - Preliminary Staphylococcus lugdunensis 08/10/24 19:13 Blood Anaerobic Blood Culture - Preliminary Staphylococcus lugdunensis 08/10/24 Unknown Urine,Straight Cath Urine Culture - Final [employer] omnicolens Lumbar Spine MRI 08/11/24 12:12 Clinical History: Lumbar radiculopathy Technique: Sagittal and axial T1 and T2-weighted magnetic resonance images were obtained of the lumbar spine without gadolinium contrast. Comparison is made to the CT of the abdomen and pelvis dated 08/10/2024 Findings: Again seen is anterior interbody fusion at L4-5 and L5-S1. There is scoliosis. No listhesis is seen. There are degenerative endplate changes at T12-L1 and to a lesser extent at other levels. There are a few apparent vertebral hemangiomas with characteristic increased T1 and increased T2 signal intensity. No other focal osseous lesion is evident. No fracture is identified. There is no definite sign of infection. There is no sign of acute ligamentous injury. The conus medullaris appears normal, terminating at the level of L1. There are partially visualized left renal cysts At L1-L2, there is a disc bulge with slight encroachment upon both neural foramen. There is no spinal stenosis or clear nerve root compression. At L2-L3, there is a diffuse disc bulge with mild bilateral neural foramen narrowing. There is no spinal stenosis or clear nerve root compression. At L3-L4, there is mild spinal stenosis due to a disc bulge and facet osteoarthritis. There is no visible compression of the traversing nerve roots. There is bilateral neural foramen narrowing, without definite compression of the exiting L3 nerve roots At L4-L5, there is no spinal stenosis or nerve root compromise At L5-S1, there is no spinal stenosis or nerve root compression Impression: 1. Fusion of L4-S1 2. Scoliosis 3. Mild spinal stenosis at L3-4, without visible compression of the traversing nerve roots 4. Multilevel neural foramen narrowing, without definite nerve root compression 5. Left renal cysts Electronically signed by Hugh Inman 08-11-2024 5:50 PM Medications Administered Home Medications Medication Instructions Recorded Confirmed Last Taken atorvastatin 40 mg tablet 40 mg PO HS 07/19/23 07/26/24 05/13/24 metoprolol succinate 25 mg 25 mg PO BID 08/19/23 07/26/24 05/14/24 tablet,extended release 24 hr levothyroxine 50 mcg tablet 50 mcg PO QAM #90 tabs 01/06/24 07/26/24 05/14/24 calcium 600 mg (as 1 tab PO DAILY #90 tabs 03/10/24 07/26/24 05/14/24 carbonate)-vitamin D3 10 mcg (400 unit) tablet citalopram 20 mg tablet 20 mg PO QAM #90 tabs 03/10/24 07/26/24 05/14/24 pramipexole 0.125 mg tablet 0.125 mg PO QPM #90 tabs 04/21/24 07/26/24 05/13/24 pregabalin 100 mg capsule (Lyrica) 100 mg PO PM #90 caps 04/21/24 07/26/24 05/13/24 folic acid 1 mg tablet 0 mg PO DAILY 05/13/24 07/26/24 Unknown amlodipine 2.5 mg tablet 2.5 mg PO QAM 05/14/24 07/26/24 Unknown aspirin 81 mg tablet,delayed 81 mg PO DAILY 06/18/24 07/26/24 Unknown release oxycodone 5 mg tablet 5 mg PO Q6H PRN pain #8 tabs 07/11/24 07/26/24 Unknown oxycodone-acetaminophen 5 mg-325 1 tab PO Q8H PRN pain #10 tabs 07/14/24 07/26/24 Unknown mg tablet allopurinol 100 mg tablet 100 mg PO DAILY #90 tabs 07/22/24 07/26/24 Unknown isosorbide mononitrate 30 mg 30 mg PO QAM #90 tabs 07/22/24 07/26/24 Unknown tablet,extended release 24 hr levetiracetam 500 mg tablet 500 mg PO BID #60 tabs 07/22/24 07/26/24 Unknown (Keppra) lisinopril 5 mg tablet 5 mg PO HS #90 tabs 07/22/24 07/26/24 Unknown warfarin 2 mg tablet See Rx Instructions PO UD #78 tabs 07/24/24 07/26/24 Unknown cyanocobalamin (vitamin B-12) 1,000 mcg IM MONTHLY PRN B12 07/26/24 07/26/24 Unknown 1,000 mcg/mL injection solution Deficiency Active Medications Generic Name Dose Route Start Last Admin Trade Name Freq PRN Reason Stop Dose Admin Acetaminophen 650 mg 07/27/24 22:33 08/13/24 16:13 Acetaminophen 325 Mg Tab PO 08/26/24 22:32 650 mg Q6H PRN Administration Pain Allopurinol 100 mg 07/28/24 11:45 08/14/24 07:42 Allopurinol 100 Mg Tab PO 08/27/24 11:44 100 mg DAILY OLGA Administration Amlodipine Besylate 2.5 mg 07/29/24 09:00 07/30/24 07:32 Amlodipine Besylate 5 Mg Tab PO 08/28/24 08:59 2.5 mg QAM OLGA Administration Atorvastatin Calcium 40 mg 07/26/24 21:00 08/13/24 19:59 Atorvastatin 40 Mg Tab PO 08/25/24 20:59 40 mg HS OLGA Administration Citalopram Hydrobromide 20 mg 07/27/24 09:00 08/14/24 07:41 Citalopram 20 Mg Tab PO 08/26/24 08:59 20 mg QAM OLGA Administration Folic Acid 1 mg 08/05/24 09:00 08/14/24 07:42 Folic Acid 1 Mg Tab PO 08/28/24 08:59 1 mg DAILY OLGA Administration Hydromorphone HCl 0.25 mg 08/11/24 18:35 08/14/24 05:59 Hydromorphone Inj 0.5 Mg/0.5 Ml Syr IV 08/24/24 13:17 0.25 mg Q4H PRN Administration Severe Pain (Scale 7, 8, 9,10) Prochlorperazine 5 mg/ Syringe 5 mls @ 5 mls/min 08/08/24 11:44 08/08/24 13:32 IV 09/07/24 11:43 5 mls/min Q12H PRN Administration Nausea And Vomiting Cefazolin Sodium 2,000 mg in 15 mls @ 3.75 mls/min 08/11/24 12:30 08/14/24 12:10 Ancef 2000mg IV 08/25/24 12:29 3.75 mls/min Q12H OLGA Administration Isosorbide Mononitrate 30 mg 07/27/24 09:00 08/08/24 09:12 Isosorbide [place] Extended Rel 30 Mg Tabcr PO 08/26/24 08:59 Not Given QAM OLGA Levetiracetam 500 mg 07/26/24 21:00 08/14/24 07:41 Levetiracetam 500 Mg Tab PO 08/25/24 20:59 500 mg BID OLGA Administration Levothyroxine Sodium 50 mcg 07/27/24 06:30 08/14/24 05:45 Levothyroxine Sodium 50 Mcg Tablet PO 08/26/24 06:29 50 mcg DAILYBB OLGA Administration Lidocaine 1 patch 08/11/24 09:00 08/14/24 07:42 Lidocaine 5% 1 Patch TD 09/10/24 08:59 1 patch QAM OLGA Administration Metoprolol Succinate 25 mg 08/01/24 09:00 08/14/24 07:42 Metoprolol Succ 25mg Ext Rel Tab PO 08/31/24 08:59 25 mg QAM OLGA Administration Miscellaneous 1 each 08/10/24 21:00 08/13/24 20:00 Remove Lidoderm Patch N/A 09/09/24 20:59 1 each DAILY@2100 OLGA Administration Pantoprazole Sodium 40 mg 07/29/24 21:00 08/14/24 07:41 Pantoprazole 40 Mg Tab PO 08/28/24 20:59 40 mg BID OLGA Administration Polyethylene Glycol 17 gm 08/04/24 21:00 08/14/24 07:43 Polyethylene (Miralax) 17 Gm Pack PO 09/03/24 20:59 Not Given BID OLGA Pramipexole Dihydrochloride 0.125 mg 07/26/24 21:00 08/13/24 20:00 Pramipexole Dihydrochlo 0.25 Mg Tab PO 08/25/24 20:59 0.125 mg QPM OLGA Administration Pregabalin 100 mg 07/26/24 21:00 08/13/24 19:59 Pregabalin 100 Mg Cap PO 08/25/24 20:59 100 mg PM OLGA Administration Senna/Docusate Sodium 1 tab 07/29/24 13:45 08/14/24 07:42 Docusate Sodium/Senna 50/8.6mg Tab PO 08/28/24 13:44 Not Given QAM OLGA Simethicone 80 mg 07/28/24 15:52 08/01/24 11:02 Simethicone 80 Mg Chew PO 08/27/24 15:51 80 mg Q6H PRN Administration Flatulence Tramadol HCl 50 mg 08/11/24 18:35 08/14/24 11:02 Tramadol Hcl 50 Mg Tablet PO 09/02/24 18:10 50 mg Q4H PRN Administration Mod-Sev Pain (Scale 4-10)
--- NOTE | 2024-08-14 12:30 | Gastroenterology Progress Note ---
Date of Service August 14, 2024 Assessment & Plan (1) Elevated INR: (2) Anemia: Plan Patient with ongoing anemia in the setting of elevated INR and no obvious GI bleeding noted. recent EGD was unremarkable. Suspect this is related to supratherapuetic INR. - follow hgb/hct. transfuse as needed. - monitor for any active GI bleeding. - continue with protonix 40mg po BID. - will continue to monitor. Admission and Anticipated Discharge Date Admission Date: July 26, 2024 Supervising Physician Co-Signing Physician Notes Original presentation patient had markedly elevated INR at 6.7. Upper endoscopy by Dr. Ohara showed old blood throughout the stomach. No endoscopically treatable lesion. Patient's bleeding seemed of stabilized with correction of the high INR. Just prior to the onset of this recent drop in H&H her INR became significantly elevated up to 5.2. This is also been corrected. Hemoglobin has improved from 6.9 up to 9.2 At this point the bleeding may be related to the hemorrhagic gastritis or there may be small bowel AVMs. Small bowel AVMs were not seen at original endoscopy. I think it repeat endoscopy at this time would likely reveal what was previously seen. As much as possible keeping her INR between 2 and 3 would be a good balance between her anticoagulation and further bleeding. We will return or rethink this if there is evidence of gastrointestinal bleeding with an INR at this range. Subjective GI was asked to come back to see patient given that her hgb has steadily been declining without signs of active bleeding. I spoke with patient who has not noticed any GI blood loss. I confirmed this with nursing who tells me she has had brown stools without melena or brbpr. patient denies any nausea, vomiting, abdominal pain, heartburn. she was receiving blood products when I saw her this morning. EGD 07/26 revealed hematin in gastric body, normal esophagus, normal duodenum. No signs of active bleeding 08/14/24 hgb 6.9 (previously 7.3). INR 2.7. 08/12 INR was 5.2 Review of Systems Review of Systems: All systems reviewed & are unremarkable except as noted in HPI & below Physical Exam Constitutional: WD/WN, vitals as above Respiratory: normal respiratory effort, lungs clear to auscultation Cardiovascular: Rate/Rhythm: regular rate and regular rhythm Gastrointestinal (Abdomen): normal bowel sounds, soft, nontender, no hepatosplenomegaly Psychiatric: Orientation: alert and oriented x 3 Affect: euthymic affect Results & Data Results & Data Vital Signs (Past 12 Hours) Vital Signs Temp Pulse Pulse Resp BP BP BP 08/14/24 12:14 98.2 F 59 L 18 125/62 08/14/24 11:36 98.1 F 59 L 18 125/52 L 08/14/24 10:36 98.2 F 58 L 18 110/48 L 08/14/24 10:06 98.4 F 60 18 102/47 L 08/14/24 09:51 98.1 F 58 L 16 115/53 L 08/14/24 09:32 98.1 F 58 L 18 100/47 L 08/14/24 07:40 08/14/24 07:37 98.6 F 58 L 18 91/48 L 08/14/24 07:00 59 L 08/14/24 03:53 97.9 F 54 L 16 98/59 L Pulse Ox O2 Del Method 08/14/24 12:14 97 08/14/24 11:36 95 08/14/24 10:36 96 08/14/24 10:06 93 08/14/24 09:51 94 08/14/24 09:32 93 08/14/24 07:40 Room Air 08/14/24 07:37 94 Room Air 08/14/24 07:00 08/14/24 03:53 92 Room Air Coding Level of Care Code 48896 SUB INP/OBS CARE 2/35MIN Diagnoses Elevated INR R79.1 Anemia D64.9
[2024-08-14 13:31] LABS: Hematocrit (blood only) 27.5 % (37.0-47.0); Hemoglobin 9.2 g/dl (12.0-16.0)
--- NOTE | 2024-08-15 08:03 | Hospitalist Progress Note ---
Date of Service August 15, 2024 Assessment & Plan (1) Bacteremia: (2) Lumbar back pain: (3) Acute blood loss anemia: (4) Acute upper GI bleeding: (5) H/O mitral valve replacement with mechanical valve: (6) Hx of aortic valve replacement, mechanical: Jorge Man is a 74 year old female with a PMH of TIA, seizure like activity, hx of mechanical mitral and aortic valve, CKD, ankle sprain who presented to the ER with coffee-ground emesis x 48 hours with melena. Supratherapeutic INR on admission (6.7), reversed in the ED. EGD 07/26 noted hematin in gastric body, otherwise without source of bleeding. Baseline chronic anemia - B12/folate/TSH WNL. Iron studies consistent with anemia of chronic disease. New onset localized back pain and low grade fevers prompted infectious workup, which discovered Staph lugdunensis bacteremia. Lumbar MRI obtained due to concern for discitis/osteomyelitis -- revealed no definitive sign of infection, will repeat on 08/17. Hgb steadily down trended to 6.9 requiring 1 u pRBC transfused 08/14. #Gram positive bacteremia / Lumbar back pain Source of bacteremia remains unclear -- only new symptom is new onset localized lumbar back pain, ongoing Blood cultures positive with Staph lugdunensis in 2/ cultures. Urine culture [employer] omnicolens. Repeat blood cultures negative >48 hours Continue Cefazolin 2 g Q12h due to renal function CRP now downtrending, still without leukocytosis. Trend CRP QOD Continue pain regimen Tylenol mild pain, tramadol 50 mg q4h moderate pain, Dilaudid 0.25 mg q4h severe pain, Lidocaine patch Ortho spine consulted -- recommend repeat lumbar MRI 08/17/24 to eval for any changes Infectious disease consulted, appreciate recs HANNAH recommended. However after discussion with mobile manager, Dr. Higgins recommended deferring HANNAH until hgb is stabilized due to risks>benefits and this is not emergent If source remains unclear and repeat blood cultures negative, anticipate 3-4 weeks of IV antibiotics due to hardware/prosthetic valves If repeat spine MRI shows spine infection or HANNAH shows endocarditis, anticipate 6 weeks of IV antibiotics #Hx of Mitral and Atrial Valve replacement/ Hx of stroke Reason for Coumadin (goal 2.5-3.5), takes 2 mg daily except skips Saturday dose. Follows with Coumadin clinic. Heparin bridge to Coumadin was resumed 07/28 Held Coumadin 08/11-08/14 due to supratherapeutic INR, suspect elevated due to acute infection (source still remains unclear) INR subtherapeutic at 2.4 - started heparin bridge and resumed Coumadin 08/15 #Acute GI bleed/ Acute blood loss anemia Hgb 5.6 on arrival - s/p 2units pRBCs and Venofer x1 Suspected secondary to recent ibuprofen use with recent ankle sprain and supratherapeutic INR (6.7 on admission), was given Vitamin K and Kcentra on admission S/p 1 u pRBC 08/14 - hgb stable, continue to closely monitor Continue Protonix 40 mg BID. On ASA for hx of stroke like symptoms - this is held Advance diet as tolerated, currently advanced to full liquids #JAMES superimposed on CKD Baseline Cr ~2.2 JAMES resolved with Cr 2.35 Lisinopril discontinued #Constipation Continue bowel regimen KUB 08/10 with mild retained stool, no bowel obstruction, no gross free air BM 08/13 (brown), continue to monitor stools #HTN Now with ongoing hypotension - but asymptomatic. Patient reports she does not cook with a lot of salt but diet upgraded to regular to mimic home environment Lisinopril and Imdur discontinued, amlodipine on hold, metoprolol reduced to 12.5 mg daily Metoprolol held 08/15 due to bradycardia #SVT Concerns for A-fib during EGD, but not documented on EKG Cardiology consulted - did not appear as afib possible SVT vs flutter. Regardless will be anticoagulated with artificial valves. Already on metoprolol. Consider 30-day monitor on discharge Echo showing left to right shunt - cardiology recommending outpatient follow up #Left Ankle Sprain Reached out to Dr. Hassan 08/05 - recs include: weight bear as tolerated in boot w/ walker. OT eval weight bearing. While resting in bed go through ROM exercises w/ ankle. Circles and go through alphabet. Can resume formal therapy on discharge. Will likely be slow to recover but pain should start to subside in 2- 3 weeks w/ continued therapy. Podiatry outpatient f/u if needed. Discussed podiatry recommendations w/ PT 08/06. Chronic conditions: Seizures: [place] Mental Health: Celexa Hypothyroidism: TSH here normal, continue Synthroid Gout: Allopurinol Dispo: continued inpatient stay given bacteremia with unclear source, anemia requiring blood transfusions, INR stabilization. PT/ OT recommending Home with HH and 07/01 support DVT proph: Heparin bridge Coumadin, SCDs Held metoprolol Started heparin drip Resumed Coumadin Repeat H&H Admission and Anticipated Discharge Date Admission Date: July 26, 2024 Subjective Patient seen and evaluated at bedside. She reports ongoing lumbar back pain that is reasonably controlled with pain medication. She denies abdominal pain, nausea, signs of acting bleeding. She states she has a good appetite. We discussed that we will start bridging with heparin due to subtherapeutic INR and will recheck H&H this afternoon to eval need for another blood transfusion. Physical Exam Physical Exam: General: No acute distress when resting in bed, significant pain with certain movements. Elderly female. Hard of hearing. Cardiac: NSR in 50s. Reviewed telemetry which showed NSR 5070s with PVCs, PACs, IVCDs. Pulm: Clear to auscultation bilaterally without wheezes, rales or rhonchi. Normal respiratory effort. 94% on room air. Abdominal: Soft, nontender, distended. Hypoactive bowel sounds present. No CVA tenderness. Spine: Localized tenderness in lumbar region. Neuro: A&O x3. No focal neurological deficits. Results & Data Results & Data Vital Signs (Past 12 Hours) Vital Signs Temp Pulse Pulse Resp BP Pulse Ox O2 Del Method 08/15/24 07:48 98.2 F 48 L 16 122/51 L 94 Room Air 08/15/24 04:09 97.7 F 54 L 18 115/63 91 Room Air 08/14/24 23:23 Room Air 08/14/24 23:05 98.1 F 54 L 18 107/50 L 91 Room Air 08/14/24 22:04 57 L Laboratory Results Reviewed CBC Reviewed CRP, PT/INR Reviewed blood cultures PG Care Time/CCT Total # of Minutes Spent Total Time Spent with Patient: Total time spent is greater than 50% in coordination of care (as documented) at patient's floor/unit and/or counseling patient: Coding Level of Care Code 27729 SUB INP/OBS CARE 3/50MIN Diagnoses Bacteremia R78.81 Lumbar back pain M54.50 Acute blood loss anemia D62 Acute upper GI bleeding K92.2 H/O mitral valve replacement with mechanical valve Z95.2 Hx of aortic valve replacement, mechanical Z95.2
[2024-08-15 08:46] LABS: Hematocrit (blood only) 21.8 % (37.0-47.0); Hemoglobin 7.3 g/dl (12.0-16.0); Mean Corpuscular Hemoglobin 30.7 pg (25.0-34.0); Mean Corpuscular Hgb Conc 33.5 g/dL (32.0-36.0); Mean Corpuscular Volume 91.6 fL (80.0-100.0); Mean Platelet Volume 10.1 fL (9.4-12.4); Platelet Count 272 K/uL (130-400); RDW Coefficient of Variation 16.5 % (11.5-14.5); RDW Standard Deviation 53.9 fL (36.4-46.3); Red Blood Count 2.38 M/uL (4.20-5.40); White Blood Count 6.68 K/ul (4.8-10.8)
[2024-08-15 09:09] LABS: INR 2.4 (0.9-1.1); Prothrombin Time 24.5 Seconds (9.0-12.0)
--- NOTE | 2024-08-15 09:46 | Gastroenterology Progress Note ---
Date of Service August 15, 2024 Assessment & Plan (1) Anemia: Plan: Still no visible signs of GI blood loss. Will follow Admission and Anticipated Discharge Date Admission Date: July 26, 2024 Subjective Patient resting comfortably. She says she is not passing blood and, in fact it has been a couple of days since her last bowel movement. Hgb jumped to 9.3 after one unit and settled back to 7.3 Physical Exam Physical Exam: She looks comfortable Constitutional: WD/WN, vitals as above Results & Data Vital Signs (Past 12 Hours) Vital Signs Temp Pulse Pulse Resp BP Pulse Ox O2 Del Method 08/15/24 07:48 36.8 C 48 L 16 122/51 L 94 Room Air 08/15/24 04:09 36.5 C 54 L 18 115/63 91 Room Air 08/14/24 23:23 Room Air 08/14/24 23:05 36.7 C 54 L 18 107/50 L 91 Room Air 08/14/24 22:04 57 L
[2024-08-15] MEDS: HEPARIN 25000 UNIT/500 ML D5W 25,000 UNITS/500 ML BAG IV SCH (11:02)
[2024-08-15] MEDS: Heparin IV Adult Wt-Based Standard *NO* INITIAL Bolus Protocol IV SCH (11:25)
--- NOTE | 2024-08-15 12:49 | Electrocardiogram Report ---
Test Reason : Blood Pressure : */* mmHG Vent. Rate : 69 BPM Atrial Rate : 69 BPM P-R Int : 182 ms QRS Dur : 108 ms QT Int : 450 ms P-R-T Axes : 7 -16 55 degrees QTcB Int : 482 ms Normal sinus rhythm with sinus arrhythmia Moderate voltage criteria for LVH, may be normal variant Prolonged QT Abnormal ECG When compared with ECG of 12-Aug-2024 00:46, (unconfirmed) Vent. rate has decreased by 56 bpm T wave inversion more evident in precordial leads Confirmed by Eber Benites ([id number]) on 08/15/2024 12:48:39 PM Referred By: REFERRED SELF Confirmed By: Eber Benites
[2024-08-15 15:45] LABS: Hemoglobin 8.9 g/dl (12.0-16.0)
[2024-08-15] MEDS: WARFARIN SOD 2 MG TAB PO SCH (16:11)
[2024-08-15 20:38] LABS: ANTI-Xa, UFH(UnfractionatedHep 0.57 IU/ml (0.3-0.7)
[2024-08-16 07:23] LABS: Hematocrit (blood only) 25.9 % (37.0-47.0); Hemoglobin 8.7 g/dl (12.0-16.0); Mean Corpuscular Hgb Conc 33.6 g/dL (32.0-36.0); Mean Corpuscular Volume 92.2 fL (80.0-100.0); Mean Platelet Volume 10.2 fL (9.4-12.4); Platelet Count 251 K/uL (130-400); RDW Coefficient of Variation 16.3 % (11.5-14.5); RDW Standard Deviation 54.4 fL (36.4-46.3); Red Blood Count 2.81 M/uL (4.20-5.40); White Blood Count 5.51 K/ul (4.8-10.8)
[2024-08-16 07:47] LABS: ANTI-Xa, UFH(UnfractionatedHep 0.42 IU/ml (0.3-0.7); INR 3.5 (0.9-1.1)
--- NOTE | 2024-08-16 08:09 | Hospitalist Progress Note ---
Date of Service August 16, 2024 Assessment & Plan (1) Bacteremia: (2) Lumbar back pain: (3) Acute blood loss anemia: (4) Acute upper GI bleeding: (5) H/O mitral valve replacement with mechanical valve: (6) Hx of aortic valve replacement, mechanical: Jorge Man is a 74 year old female with a PMH of TIA, seizure like activity, hx of mechanical mitral and aortic valve, CKD, ankle sprain who presented to the ER with coffee-ground emesis x 48 hours with melena. Supratherapeutic INR on admission (6.7), reversed in the ED. EGD 07/26 noted hematin in gastric body, otherwise without source of bleeding. Baseline chronic anemia - B12/folate/TSH WNL. Iron studies consistent with anemia of chronic disease. New onset localized back pain and low grade fevers prompted infectious workup, which discovered Staph lugdunensis bacteremia. Lumbar MRI obtained due to concern for discitis/osteomyelitis -- revealed no definitive sign of infection, will repeat on 08/17. Hgb steadily down trended to 6.9 requiring 1 u pRBC transfused 08/14 - remains stable since. #Gram positive bacteremia / Lumbar back pain Source of bacteremia remains unclear -- only new symptom is new onset localized lumbar back pain, ongoing Blood cultures positive with Staph lugdunensis in 2/2 cultures. Urine culture [employer] omnicolens. Repeat blood cultures negative >48 hours Continue Cefazolin 2 g Q12h due to renal function CRP now downtrending, still without leukocytosis. Trend CRP QOD Continue pain regimen Tylenol mild pain, tramadol 50 mg q4h moderate pain, Dilaudid 0.25 mg q4h severe pain, Lidocaine patch Ortho spine consulted -- recommend repeat lumbar MRI 08/17/24 to eval for any changes Infectious disease consulted, appreciate recs HANNAH recommended. However after discussion with surg tech, Dr. Higgins recommended deferring HANNAH until hgb is stabilized due to risks>benefits and this is not emergent If source remains unclear and repeat blood cultures negative, anticipate 3-4 weeks of IV antibiotics due to hardware/prosthetic valves If repeat spine MRI shows spine infection or HANNAH shows endocarditis, anticipate 6 weeks of IV antibiotics #Hx of Mitral and Atrial Valve replacement/ Hx of stroke Reason for Coumadin (goal 2.5-3.5), takes 2 mg daily except skips Saturday dose. Follows with Coumadin clinic. Heparin bridged to Coumadin 07/28 Held Coumadin 08/11-08/14 due to supratherapeutic INR, suspect elevated due to acute infection (source still remains unclear) Heparin bridged to Coumadin 08/15 - now with therapeutic INR. Coumadin 1 mg today given good INR response to Coumadin resumption yesterday and typically skips S unday dose #Fall Witnessed fall with head strike while ambulating to bed from bathroom 08/16 - reports due to tripping while using RW Head CT negative. Skin tear on left forearm covered in Optifoam #Acute GI bleed/ Acute blood loss anemia Hgb 5.6 on arrival - s/p 2units pRBCs and Venofer x1 Suspected secondary to recent ibuprofen use with recent ankle sprain and supratherapeutic INR (6.7 on admission), was given Vitamin K and Kcentra on admission S/p 1 u pRBC 08/14 - hgb stable, continue to closely monitor Continue Protonix 40 mg BID. On ASA for hx of stroke like symptoms - this is held Advance diet as tolerated, currently advanced to low fiber #JAMES superimposed on CKD Baseline Cr ~2.2. JAMES resolved 08/13 Lisinopril discontinued #Constipation Continue bowel regimen KUB 08/10 with mild retained stool, no bowel obstruction, no gross free air BM 08/16 (brown), continue to monitor stools #HTN Now with ongoing hypotension - but asymptomatic. Patient reports she does not cook with a lot of salt but diet upgraded to regular to mimic home environment Lisinopril and Imdur discontinued, amlodipine on hold, metoprolol reduced to 12.5 mg daily Metoprolol held 08/15 due to bradycardia Chronic conditions: Seizures: Kera Mental Health: Celexa Hypothyroidism: TSH here normal, continue Synthroid Gout: Allopurinol Dispo: continued inpatient stay given bacteremia with unclear source, anemia requiring blood transfusions, INR stabilization. PT/ OT recommending Home with and 07/01 support. Recommend cardiology follow-up and 30 day heart monitor on discharge. DVT proph: Coumadin, SCDs Discontinued heparin Adjusted Warfarin Ordered head CT Updated daughter via phone call Admission and Anticipated Discharge Date Admission Date: July 26, 2024 Subjective Patient seen and evaluated at bedside. She reports feeling well, back pain is controlled. She slept well last night and has a good appetite. She plans to get OOB to chair for lunch this afternoon. We discussed the current plan including discontinuing heparin, lower dose Coumadin today, and repeat lumbar MRI tomorrow. Notified by RN in afternoon that patient experienced a witnessed fall. She reportedly tripped while ambulating with RW and advanced nursing professor back to her bed from the bathroom. She did hit her head, believes off the trash can. She also suffered a skin tear to her left forearm and hit her mid-back during the fall. I re-evaluated patient at bedside. She reports her left forearm hurts at the site of the skin tear. She denies any other acute complaints. Physical Exam Physical Exam: General: No acute distress when resting in bed, significant pain with certain movements. Elderly female. Hard of hearing. Skin: Skin tear on left forearm covered in Optifoam. Redness around T6 from fall, no point tenderness or abrasion. Cardiac: NSR in 60s. Reviewed telemetry which showed NSR 5070s with PVCs, PACs, IVCDs. Pulm: Clear to auscultation bilaterally without wheezes, rales or rhonchi. Normal respiratory effort. 94% on room air. Abdominal: Soft, nontender, slightly distended. Bowel sounds present. No CVA tenderness. Spine: Localized tenderness in lumbar region. Neuro: A&O x3. Non-focal, non-lateralizing neuro exam. Results & Data Results & Data Vital Signs (Past 12 Hours) Vital Signs Temp Pulse Pulse Resp BP Pulse Ox O2 Del Method 08/16/24 07:24 Room Air 08/16/24 06:10 57 L 08/16/24 03:07 97.2 F L 57 L 18 107/63 93 Room Air 08/15/24 22:33 98.8 F 61 18 116/64 92 Room Air 08/15/24 22:16 61 Laboratory Results Reviewed CBC Reviewed PT/INR Reviewed blood cultures PG Care Time/CCT Total # of Minutes Spent Total Time Spent with Patient: Total time spent is greater than 50% in coordination of care (as documented) at patient's floor/unit and/or counseling patient: Coding Level of Care Code 36307 SUB INP/OBS CARE 3/50MIN Diagnoses Bacteremia R78.81 Lumbar back pain M54.50 Acute blood loss anemia D62 Acute upper GI bleeding K92.2 H/O mitral valve replacement with mechanical valve Z95.2 Hx of aortic valve replacement, mechanical Z95.2
[2024-08-16] MEDS ORDERED: MICONAZOLE NITRATE 2% CR 30 GM TUBE EXT PRN (09:54)
--- NOTE | 2024-08-16 11:08 | Gastroenterology Progress Note ---
Date of Service August 16, 2024 Assessment & Plan (1) Anemia: Plan: No evidence overt GI blood loss Continue to follow H/H Admission and Anticipated Discharge Date Admission Date: July 26, 2024 Subjective Patient denies any bleeding. H/H are stable Physical Exam Constitutional: WD/WN, vitals as above Results & Data Vital Signs (Past 12 Hours) Vital Signs Temp Pulse Pulse Pulse Resp BP BP 08/16/24 08:24 37.0 C 56 L 16 110/60 08/16/24 07:24 08/16/24 06:10 57 L 08/16/24 03:07 36.2 C L 57 L 18 107/63 Pulse Ox O2 Del Method 08/16/24 08:24 95 Room Air 08/16/24 07:24 Room Air 08/16/24 06:10 08/16/24 03:07 93 Room Air
--- NOTE | 2024-08-16 13:53 | CT Scan Report ---
CT head/brain wo con CLINICAL HISTORY: 74 years-old Female with Witnessed fall with head strike. Acute head trauma status post fall TECHNIQUE: Multiple axial CT images of the head were obtained without contrast. A dose lowering tech nique was utilized adhering to the principles of ALARA. CT DOSE: 547.75 mGy.cm COMPARISON: 05/14/2024 FINDINGS: No acute intracranial hemorrhage, midline shift, intracranial mass, hydrocephalus, territorial ischem ia or abnormal extra-axial collection. Involutional changes with chronic microvascular ischemic disea se. Mildly motion degraded exam. Chronic left thalamic and cerebellar lacunar infarcts. The calvarium is intact. Mastoid air cells are clear. Moderate mucosal thickening of the left maxill claire sinus. IMPRESSION: 1. No acute intracranial abnormality or calvarial fracture. 2. Chronic appearance of the brain. ACT 112: Negative or not required by law. The above report was generated using voice recognition software. It may contain grammatical, syntax o r spelling errors. Electronically signed by: Donovan Clinton M.D. 08/16/2024 1:52 PM
[2024-08-16] MEDS: WARFARIN SOD 1 MG TAB PO SCH (15:46)
[2024-08-17 07:37] LABS: Basophils # (auto) 0.03 K/uL (0.00-0.20); Basophils % (auto) 0.4 %; Eosinophils # (auto) 0.28 K/uL (0.00-0.50); Eosinophils % (auto) 3.8 %; Hematocrit (blood only) 25.5 % (37.0-47.0); Hemoglobin 8.5 g/dl (12.0-16.0); Immature Granulocytes # (auto) 0.06 K/uL (0.01-0.20); Immature Granulocytes % (auto) 0.8 %; Lymphocytes # (auto) 0.94 K/uL (1.20-3.40); Lymphocytes % (auto) 12.8 %; Mean Corpuscular Hemoglobin 30.8 pg (25.0-34.0); Mean Corpuscular Hgb Conc 33.3 g/dL (32.0-36.0); Mean Corpuscular Volume 92.4 fL (80.0-100.0); Mean Platelet Volume 9.9 fL (9.4-12.4); Monocytes # (auto) 0.96 K/uL (0.11-0.59); Neutrophils % (auto) 69.2 %; Platelet Count 269 K/uL (130-400); RDW Coefficient of Variation 16.5 % (11.5-14.5); RDW Standard Deviation 54.8 fL (36.4-46.3); Red Blood Count 2.76 M/uL (4.20-5.40); White Blood Count 7.37 K/ul (4.8-10.8)
[2024-08-17 07:48] LABS: ANTI-Xa, UFH(UnfractionatedHep < 0.10 IU/ml (0.3-0.7); Prothrombin Time 38.1 Seconds (9.0-12.0)
--- NOTE | 2024-08-17 09:20 | Infectious Disease Progress Nt ---
Date of Service August 17, 2024 Assessment & Plan (1) Lumbar back pain: (2) Bacteremia: (3) Fever: Plan 74-year-old female with a past medical history of TIA, seizure-like activity, mechanical mitral valve and aortic valve replacement on warfarin, left distal radius fracture status post ORIF, lumbar fusion who presents on 07/26/2024 with coffee ground emesis with melena, with concern for UGIB. Hospital course c/b fever, found to have coronavirus HKU I and blood cultures with Staph lugdunensis in 4/4 bottles. She fell and sprained her ankle on 07/06/2024, and since that time she has been taking ibuprofen every 6 hours. Per EMS she was reportedly weak and pale on their arrival. BPs were in the 80s, improved with IV fluid. Admission H&H 5.6/17.5. INR supratherapeutic at 6.7. Received vitamin K in the ED and 2 units of pRBCs. She was started on Protonix gtt. Underwent an EGD on 07/26/2024, which showed old blood in the gastric body, but no obvious source. There was suspicion for mucosal bleeding 2/2 supratherapeutic INR. Course complicated by SVT versus atrial tachycardia or atrial flutter during EGD, but no recurrence. She was evaluated by cardiology. She underwent echocardiogram on 07/27/2024 which showed acceptable transvalvular gradient across the mechanical aortic valve and the mechanical mitral valve. Possible left to right shunt into the right atrium. Her course was further complicated with fever with a Tmax of 38.1 on 08/10/2024. Blood cultures grew Staphylococcus lugdunensis in 4/4 bottles. She also complained of sudden onset of left flank pain. She denied urinary symptoms. Bio fire was positive for coronavirus HKU I. Chest x-ray showed a right lung base atelectasis. KUB showed mild retained stool. CTAP showed mild nonspecific ileus, no inflammatory process or obstruction. Scarring of both kidneys and atrophy of the left kidney which was stable. No stones, hydronephrosis. Lumbar Spine shows fusion of L4-S1, scoliosis, mild spinal stenosis at L3-4 without visible compression, multilevel neural foramen narrowing without compression and left renal cysts. She has no leukocytosis. CRP 14.37-->. 25.70. Procalcitonin 3.47. She has been afebrile for greater than 72 hours. She is currently on cefazolin. A repeat echocardiogram obtained 08/11/2024 shows well-seated prosthetic aortic and mitral valve. No valvular vegetations. ID consulted for GPC bacteremia of unknown etiology. Microbiology: Blood cultures 08/10/2024: 4/ bottles Staphylococcus lugdunensis ( S oxa) Urine culture 08/10/2024 20 K [employer] omnicolens Blood culture 08/12 NGTD Antibiotics: Cefazolin 08/11ongoing # Staphylococcus lugdunensis bacteremia of unknown etiology # Coffee-ground emesis, melena resolved # Status post mitral valve replacement, mechanical # Status post aortic valve replacement, mechanical # Status post lumbar spinal fusion, hardware in place # Status post left radius ORIF # Coronavirus H KU 1 positive, on RA # TMP/SMX and doxy allergy- unk rxn # CKD Discussion: Source of staph lugdunensis bacteremia unclear. This is a coagulase-negative staph which is part of skin nicole however unlike other CONS this can cause significant disease similar to Staphylococcus aureus. It has been associated with skin and soft tissue infections, endocarditis, bacteremia without endocarditis, bone and joint infections, hardware infections. She has 2 mechanical valves (aortic, mitral), spinal hardware and s/p L radius ORIF. TTE completed on 07/27 and on 08/11 without evidence of valve vegetations or abnormalities. The mechanical valves seem to be well-seated. She complains of back pain but 08/11 MRI spine is without evidence of spinal infection. She does not have any obvious signs of skin and soft tissue infection on exam. She has faint bruising on left ankle and left lateral chest- she reports she bruised herself after fall last month. No pain at L radius. Urine culture growing only 20K [employer] omnicolens without ja urinary symptoms. Her ? L flank pain/ left sided pain seems to be in the setting of prior fall and not from an active UTI. Seen by Ortho. Plan for repeat MRI early this week. No acute findings currently on imaging however cannot rule out a brewing discitis thus recommended repeating MRI. HANNAH on hold per cards until hemoglobin stabilized. Recommendations: -Continue cefazolin 2 g IV Q12 hours (creatinine clearance 17) -Will follow-up repeat MRI spine -Recommend HANNAH to evaluate for endocarditis now that Hb appears to be stable Anticipate 3-4 weeks of therapy in setting of multiple hardware if etiology remains unclear and repeat BCx sterile. IF HANNAH c/f endocarditis, or repeat MRI spine c/f spine infection, then anticipate 6 weeks of antibiotics. Will continue to follow Admission and Anticipated Discharge Date Admission Date: July 26, 2024 Subjective This patient recommendation is based on a telemedicine consult request which was completed asynchronously through chart review and information provided by the primary physician. The patient was not seen or examined today. The evaluation is consultative in nature and all patient care and treatment decisions can either be accepted or rejected by the patient's primary hospital-based treating physician using their own independent medical judgment for their patient. Time Spent Reviewing Chart: 21 - 30 minutes Afebrile Repeat blood cultures from 08/12 NGTD Hb stable Results & Data Vital Signs (Past 12 Hours) Vital Signs Temp Pulse Pulse Pulse Pulse Resp BP 08/17/24 07:33 36.8 C 62 16 114/64 08/17/24 07:23 64 08/17/24 03:40 36.6 C 61 16 117/59 L 08/16/24 23:18 37.1 C 67 20 115/53 L 08/16/24 22:31 08/16/24 21:44 68 Pulse Ox O2 Del Method 08/17/24 07:33 92 Room Air 08/17/24 07:23 08/17/24 03:40 91 Room Air 08/16/24 23:18 91 Room Air 08/16/24 22:31 Room Air 08/16/24 21:44 Laboratory Results Short CBC 08/17/24 Range/Units 07:03 WBC 7.37 (4.8-10.8) K/ul Hgb 8.5 L (12.0-16.0) g/dl Hct 25.5 L (37.0-47.0) % Plt Count 269 (130-400) K/uL Diagnostic Findings Head CT 08/16/24 13:23 CT head/brain wo con CLINICAL HISTORY: 74 years-old Female with Witnessed fall with head strike. Acute head trauma status post fall TECHNIQUE: Multiple axial CT images of the head were obtained without contrast. A dose lowering technique was utilized adhering to the principles of ALARA. CT DOSE: 547.75 mGy.cm COMPARISON: 05/14/2024 FINDINGS: No acute intracranial hemorrhage, midline shift, intracranial mass, hydrocephalus, territorial ischemia or abnormal extra-axial collection. Involutional changes with chronic microvascular ischemic disease. Mildly motion degraded exam. Chronic left thalamic and cerebellar lacunar infarcts. The calvarium is intact. Mastoid air cells are clear. Moderate mucosal thickening of the left maxillary sinus. IMPRESSION: 1. No acute intracranial abnormality or calvarial fracture. 2. Chronic appearance of the brain. ACT 112: Negative or not required by law. The above report was generated using voice recognition software. It may contain grammatical, syntax or spelling errors. Electronically signed by: Donovan Clinton M.D. 08/16/2024 1:52 PM Medications Administered Current Inpatient Medications Acetaminophen (Acetaminophen 325 Mg Tab) 650 mg PO Q6H PRN PRN Reason: Pain Stop: 08/26/24 22:32 Last Admin: 08/13/24 16:13 Dose: 650 mg Allopurinol (Allopurinol 100 Mg Tab) 100 mg PO DAILY [facility] Stop: 08/27/24 11:44 Last Admin: 08/16/24 08:35 Dose: 100 mg Amlodipine Besylate (Amlodipine Besylate 5 Mg Tab) 2.5 mg PO QAM [facility] Stop: 08/28/24 08:59 Last Admin: 07/30/24 07:32 Dose: 2.5 mg Atorvastatin Calcium (Atorvastatin 40 Mg Tab) 40 mg PO HS [facility] Stop: 08/25/24 20:59 Last Admin: 08/16/24 20:48 Dose: 40 mg Citalopram Hydrobromide (Citalopram 20 Mg Tab) 20 mg PO QAM [facility] Stop: 08/26/24 08:59 Last Admin: 08/16/24 08:35 Dose: 20 mg Folic Acid (Folic Acid 1 Mg Tab) 1 mg PO DAILY [facility] Stop: 08/28/24 08:59 Last Admin: 08/16/24 08:35 Dose: 1 mg Hydromorphone HCl (Hydromorphone Inj 0.5 Mg/0.5 Ml Syr) 0.25 mg IV Q4H PRN PRN Reason: Severe Pain (Scale 7, 8, 9,10) Stop: 08/24/24 13:17 Last Admin: 08/16/24 21:00 Dose: 0.25 mg Prochlorperazine 5 mg/ Syringe 5 mls @ 5 mls/min IV Q12H PRN PRN Reason: Nausea And Vomiting Stop: 09/07/24 11:43 Last Admin: 08/08/24 13:32 Dose: 5 mls/min Cefazolin Sodium (Ancef 2000mg) 2,000 mg in 15 mls @ 3.75 mls/min IV Q12H [facility] Stop: 08/25/24 12:29 Last Admin: 08/17/24 00:39 Dose: 3.75 mls/min Isosorbide Mononitrate (Isosorbide [place] Extended Rel 30 Mg Tabcr) [facility] [place]: 08/26/24 08:59 Last Admin: 08/08/24 09:12 Dose: Not Given Levetiracetam (Levetiracetam 500 Mg Tab) 500 mg PO BID [facility] Stop: 08/25/24 20:59 Last Admin: 08/16/24 20:47 Dose: 500 mg Levothyroxine Sodium (Levothyroxine Sodium 50 Mcg Tablet) 50 mcg PO DAILYBB [facility] Stop: 08/26/24 06:29 Last Admin: 08/17/24 05:22 Dose: 50 mcg Lidocaine (Lidocaine 5% 1 Patch) 1 patch TD [facility] Stop: 09/10/24 08:59 Last Admin: 08/16/24 08:30 Dose: 1 patch Metoprolol Succinate (Metoprolol Succ 25mg Ext Rel Tab) 12.5 mg PO [facility] Stop: 09/14/24 08:59 Miconazole Nitrate (Miconazole Nitrate 2% Cr 30 Gm Tube) 1 appln EXT PRN PRN PRN Reason: Affected Skin Folds Stop: 09/15/24 09:53 Miscellaneous (Remove Lidoderm Patch) 1 each N/A DAILY@2100 [facility] Stop: 09/09/24 20:59 Last Admin: 08/16/24 20:47 Dose: 1 each Pantoprazole Sodium (Pantoprazole 40 Mg Tab) 40 mg PO BID [facility] Stop: 08/28/24 20:59 Last Admin: 08/16/24 20:47 Dose: 40 mg Polyethylene Glycol (Polyethylene (Miralax) 17 Gm Pack) 17 gm PO DAILY PRN PRN Reason: Constipation Stop: 08/28/24 13:31 Polyethylene Glycol (Polyethylene (Miralax) 17 Gm Pack) 17 gm PO BID [facility] Stop: 09/03/24 20:59 Last Admin: 08/16/24 20:06 Dose: Not Given Pramipexole Dihydrochloride (Pramipexole Dihydrochlo 0.25 Mg Tab) 0.125 mg PO QPM [facility] Stop: 08/25/24 20:59 Last Admin: 08/16/24 20:47 Dose: 0.125 mg Pregabalin (Pregabalin 100 Mg Cap) 100 mg PO PM [facility] Stop: 08/25/24 20:59 Last Admin: 08/16/24 20:47 Dose: 100 mg Senna/Docusate Sodium (Docusate Sodium/Senna 50/8.6mg Tab) 1 tab PO QAM [facility] Stop: 08/28/24 13:44 Last Admin: 08/16/24 08:30 Dose: 1 tab Simethicone (Simethicone 80 Mg Chew) 80 mg PO Q6H PRN PRN Reason: Flatulence Stop: 08/27/24 15:51 Last Admin: 08/01/24 11:02 Dose: 80 mg Tramadol HCl (Tramadol Hcl 50 Mg Tablet) 50 mg PO Q4H PRN PRN Reason: Mod-Sev Pain (Scale 4-10) Stop: 09/02/24 18:10 Last Admin: 08/16/24 18:43 Dose: 50 mg Warfarin Sodium (Warfarin Sod 2 Mg Tab) 2 mg PO DAILY@1600 [facility] Stop: 09/10/24 15:59 Last Admin: 08/15/24 16:11 Dose: 2 mg Warfarin Sodium (Warfarin Sod 1 Mg Tab) 1 mg PO DAILY@1600 [facility] Stop: 09/15/24 15:59 Last Admin: 08/16/24 15:46 Dose: 1 mg
--- NOTE | 2024-08-17 09:45 | Gastroenterology Progress Note ---
Date of Service August 17, 2024 Assessment & Plan (1) Anemia: Plan: 74 year old female with history of TIA, seizure like activity, mechanical mitral and aortic valve, CKD, ankle sprain admitted through the ED 07/26/24 w/ coffee- ground emesis x 48 hours with melena s/p EGD w/ hematin in gastric body but without source of bleeding. She denies further episodes of black/bloody stools or reports of coffee ground emesis or hematemesis. No indication for repeat endoscopic evaluation. Continue supportive measures. Tight control of INR (range 2-3). Trend H&H. PPI 40 mg twice daily. Transfuse PRN per primary team. Recall GI if any s/s of active GI bleeding. Thank you for allowing us to participate in the care of this patient. Please call with any acute changes, questions or concerns. Please see addendum below with additional recommendation from my supervising physician. I spent a total of 40 minutes on the date of service in review of patient's record, and previously obtained information in person and appropriate medical visit, discussion and education of plan, with patient and/or caregiver, placing orders for tests/referral/procedures as medically necessary and documentation of pertinent clinical information in patient's medical records for their visit today. Admission and Anticipated Discharge Date Admission Date: July 26, 2024 Supervising Physician Co-Signing Physician Notes I saw and examined this patient with our nurse practitioner and agree with her assessment and plan. Denies any GI symptoms at the present time. No evidence of overt GI bleeding hemodynamically stable and hemoglobin hematocrit stable. He can follow-up as an outpatient if recurrent symptoms. Subjective Pt was seen and evaluated, chart reviewed. Reports back pain this AM but denies any gastrointestinal concerns. Presently eating breakfast. No report of nausea/vomiting. 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 Physical Exam Constitutional: WD/WN, vitals as above Respiratory: normal respiratory effort Cardiovascular: Rate/Rhythm: regular rate and regular rhythm Gastrointestinal (Abdomen): normal bowel sounds, soft, nontender, no hepatosplenomegaly Skin: no rashes, warm and dry Results & Data Results & Data Vital Signs (Past 12 Hours) Vital Signs Temp Pulse Pulse Pulse Pulse Resp BP 08/17/24 07:33 98.2 F 62 16 114/64 08/17/24 07:23 64 08/17/24 03:40 97.9 F 61 16 117/59 L 08/16/24 23:18 98.8 F 67 20 115/53 L 08/16/24 22:31 08/16/24 21:44 68 Pulse Ox O2 Del Method 08/17/24 07:33 92 Room Air 08/17/24 07:23 08/17/24 03:40 91 Room Air 08/16/24 23:18 91 Room Air 08/16/24 22:31 Room Air 08/16/24 21:44 Laboratory Results 08/17/24 08/16/24 Range/Units 07:03 13:31 WBC 7.37 (4.8-10.8) K/ul RBC 2.76 L (4.20-5.40) M/uL Hgb 8.5 L (12.0-16.0) g/dl Hct 25.5 L (37.0-47.0) % MCV 92.4 (80.0-100.0) fL MCH 30.8 (25.0-34.0) pg MCHC 33.3 (32.0-36.0) g/dL RDW Std Deviation 54.8 H (36.4-46.3) fL RDW Coeff of Gisele 16.5 H (11.5-14.5) % Plt Count 269 (130-400) K/uL MPV 9.9 (9.4-12.4) fL Immature Gran % (Auto) 0.8 % Neut % (Auto) 69.2 % Lymph % (Auto) 12.8 % [place] % (Auto) 13.0 % Eos % (Auto) 3.8 % Baso % (Auto) 0.4 % Neut # (Auto) 5.10 (1.40-6.50) K/uL Lymph # (Auto) 0.94 L (1.20-3.40) K/uL [place] # (Auto) 0.96 H (0.11-0.59) K/uL Eos # (Auto) 0.28 (0.00-0.50) K/uL Baso # (Auto) 0.03 (0.00-0.20) K/uL Immature Gran # (Auto) 0.06 (0.01-0.20) K/uL PT 38.1 H (9.0-12.0) Seconds INR 4.0 H (0.9-1.1) Heparin Anti-Xa, Unfract < 0.10 L (0.3-0.7) IU/ml POC Glucose 103 H (70-99) mg/dl C-Reactive Protein 11.65 H (0-0.5) mg/dl PG Care Time/CCT Total # of Minutes Spent Total Time Spent with Patient: Total time spent is greater than 50% in coordination of care (as documented) at patient's floor/unit and/or counseling patient: Coding Level of Care Code 75732 SUB INP/OBS CARE 2/35MIN Diagnoses Anemia D64.9
--- NOTE | 2024-08-17 14:06 | Magnetic Resonance Report ---
MR thoracic spine wo con HISTORY: 74 years-old Female back pain, bacteremia acute mid back pain with bacteremia COMPARISON: Lumbar spine MRI of same day and also to 2524 TECHNIQUE: Multiplanar multisequence MRI of the lumbar spine was obtained without IV contrast FINDINGS: Anterior fusion hardware at C5-C6. Discectomy changes of the lower lumbar spine. Sigmoidal thoracolum bar scoliosis. Sternotomy wires are noted. Lumbar spine dictated separately. Severe intervertebral di sc space narrowing at T12-L1. There is moderate marrow and paravertebral edema with fluid signal with in the disc space. Findings have progressed from the 08/11/2024 study. No discrete epidural or paraspi nal drainable fluid collection. Layering pleural effusions are noted. Mild multilevel vertebral disc space narrowing and spondylotic spurring with [id number] facet a rthrosis throughout the thoracic spine. Normal signal within the thoracic spinal cord. Posterior ander lar disc bulging at T11-T12 and T12-L1. No significant central canal or neural foraminal narrowing id entified. IMPRESSION: 1. Acute discitis/osteomyelitis with reactive paravertebral edema at T12-L1. 2. No acute fracture, epidural or paraspinal abscess identified at this time. 3. No high-grade central canal or foraminal narrowing. 4. Trace pleural effusions. 5. Scoliosis. ACT 112: Negative or not required by law. The above report was generated using voice recognition software. It may contain grammatical, syntax o r spelling errors. Electronically signed by: Donovan Clinton M.D. 08/17/2024 2:04 PM
--- NOTE | 2024-08-17 14:11 | Magnetic Resonance Report ---
MRI OF THE LUMBAR SPINE WITHOUT CONTRAST CLINICAL HISTORY: Repeat rec given ongoing LBP, ?source of infection COMPARISON STUDY: Lumbar spine MRI August 11, 2024. TECHNIQUE: Utilizing a 1.5 Carolyn magnet and dedicated coil, multiplanar, multiecho imaging of the mayelin mbar spine was performed without IV contrast. FINDINGS: For purposes of numbering on this exam, the L5-S1 disc space is assigned to axial image 27 of 30. The re are postoperative findings consistent with L4-L5 and L5-S1 discectomy with fusion. There are no mayelin mbar spine fractures. There is no intracanalicular mass or fluid collection. The conus terminates at the L1-L2 level. There is severe disc space narrowing T12-L1 with irregularity of the inferior endpla te of T12 and superior endplate of L1. Adjacent marrow edema and paravertebral edema has developed si nce previous MRI of August 11, 2024. There is no epidural fluid collection. No paravertebral fluid collection is present. No additional sites of inflammation are identified. L1-2: The central canal and neural foramen are patent. There is mild facet arthrosis. L2-3: There is moderate facet arthrosis with ligamentous hypertrophy. The central canal and neural fo ramen are patent. L3-4: There is mild disc bulge with moderate facet arthrosis and ligamentous hypertrophy. There is mi ld to moderate central canal and bilateral neural foraminal stenosis. L4-5: Interbody fusion is present. The central canal and neural foramen are patent. L5-S1: Interbody fusion is present. Central canal and neural foramen are patent. IMPRESSION: 1. Findings consistent with T12-L1 discitis/osteomyelitis which has developed since previous MRI. No epidural/paravertebral abscess. The findings will be called/faxed to the ordering provider at time of dictation. 2. Otherwise, unchanged appearance of the lumbar spine status post L4-S1 fusion. 3. No lumbar spine fractures. ACT 112: Negative or not required by law. Electronically signed by: Angel Munson M.D. 08/17/2024 2:09 PM
--- NOTE | 2024-08-17 18:08 | Hospitalist Progress Note ---
Date of Service August 17, 2024 Assessment & Plan (1) Bacteremia: (2) Discitis: (3) Acute blood loss anemia: (4) Acute upper GI bleeding: Jorge Man is a 74 year old female with a PMH of TIA, seizure like activity, hx of mechanical mitral and aortic valve, CKD, ankle sprain who presented to the ER with coffee-ground emesis x 48 hours with melena. Supratherapeutic INR on admission (6.7), reversed in the ED. she had a scope, was transfused blood, and GI bleed has resolved. She later spiked a fever and was found to be bacteremic and now has been diagnosed with acute discitis/osteomyelitis at T12-L1. #Gram positive bacteremia/Lumbar back pain/discitis/osteomyelitis T12-L1 Source of bacteremia secondary to acute discitis/osteomyelitis found on MRI 08/17. Blood cultures positive with Staph lugdunensis in 2/2 cultures. Urine culture Alloscardovia omnicolens. Repeat blood cultures negative >48 hours Thoracic/Lumbar MRI 08/17: acute discitis/osteomyelitis w/ reactive paravertebral edema @ T12-L1. no acute fx, epidural/paraspinal abscess. no high grade central canal/foraminal narrowing. scoliosis Continue Cefazolin 2 g Q12h due to renal function x 6 weeks. CRP now downtrending (11.65), still without leukocytosis. Trend CRP QOD Continue pain regimen Tylenol mild pain, tramadol 50 mg q4h moderate pain, Dilaudid 0.25 mg q4h severe pain, Lidocaine patch Ortho spine consulted -- recommend repeat lumbar MRI 08/17/24 to eval for any changes - discussed MRI w/ orthospine they are to review this 08/18. Infectious disease consulted, appreciate recs - HANNAH recommended. Now that hgb stabilized, plan for HANNAH 08/18. Discussed w/ cardiology 08/17. #Hx of Mitral and Atrial Valve replacement/ Hx of stroke/left to right shunt seen on echo/SVT Reason for Coumadin (goal 2.5-3.5), takes 2 mg daily except skips Saturday dose. Follows with Coumadin clinic. Heparin bridged to Coumadin 07/28 Held Coumadin 08/11-08/14 due to supratherapeutic INR, suspect elevated due to acute infection (source still remains unclear) Heparin bridged to Coumadin 08/15 INR 33: 4, Coumadin held. repeat INR in AM Plan for HANNAH on 08/18 Continue metoprolol for SVT-needs 30-day event monitor after discharge as per cardiology recommendation #Fall Witnessed fall with head strike while ambulating to bed from bathroom 08/16 - reports due to tripping while using RW Head CT negative. Skin tear on left forearm covered in Optifoam #Acute GI bleed/ Acute blood loss anemia Hgb 5.6 on arrival - s/p 2units pRBCs and Venofer x1 Suspected secondary to recent ibuprofen use with recent ankle sprain and supratherapeutic INR (6.7 on admission), was given Vitamin K and Kcentra on admission EGD 07/26 noted hematin in gastric body, otherwise without source of bleeding. Baseline chronic anemia - B12/folate/TSH WNL. S/p 1 u pRBC 08/14 - hgb stable 8.5, continue to closely monitor Continue Protonix 40 mg BID. On ASA for hx of stroke like symptoms - this is held Advance diet as tolerated, currently advanced to low fiber #JAMES superimposed on CKD Baseline Cr ~2.2. JAMES resolved 08/13 Lisinopril discontinued #Constipation Continue bowel regimen KUB 08/10 with mild retained stool, no bowel obstruction, no gross free air BM 08/16 (brown), continue to monitor stools #HTN Now with ongoing hypotension - but asymptomatic. Patient reports she does not cook with a lot of salt but diet upgraded to regular to mimic home environment Lisinopril, Amlodipine discontinued. Continue Imdur, Metoprolol reduced to 12.5mg daily #Seizures: No acute issues -Continue Keppra # Major depressive disorder: No acute issues -Continue Celexa #Hypothyroidism: TSH here normal -Continue Synthroid #Gout: No acute issues -Continue allopurinol, renally dosed #Hyperlipidemia-no acute issues -Continue atorvastatin Dispo: continued inpatient stay PT/ OT recommending rehab. DVT proph: Coumadin, SCDs Admission and Anticipated Discharge Date Admission Date: July 26, 2024 Supervising Physician Co-Signing Physician Notes JOSE Supervision Note: I did not personally see or examine the patient today, but I verified all cole points of JOSE Lau's assessment and plan with the following exceptions/additions: None Subjective Patient seen and examined this afternoon after her MRI. Patient reports she is still in a significant amount of lower back pain. She is able to ambulate okay. She did have a fall yesterday in her bathroom in which her head CT was negative. She denies N/V/CP/SOB/abdominal pain. She states she had some diarrhea today. Physical Exam Constitutional: WD/WN, vitals as above Eyes: PERRL, conjunctivae normal, anicteric sclerae Respiratory: breathing unlabored Cardiovascular: well perfused Psychiatric: A+Ox3, euthymic affect Results & Data Results & Data Vital Signs (Past 12 Hours) Vital Signs Temp Pulse Pulse Resp BP BP Pulse Ox 08/17/24 14:50 36.9 C 64 20 118/55 L 94 08/17/24 10:55 37.0 C 72 16 127/69 94 08/17/24 09:56 37.1 C 08/17/24 07:33 36.8 C 62 16 114/64 92 08/17/24 07:23 64 O2 Del Method 08/17/24 14:50 Room Air 08/17/24 10:55 Room Air 08/17/24 09:56 08/17/24 07:33 Room Air 08/17/24 07:23 PG Care Time/CCT Total # of Minutes Spent Total Time Spent with Patient: Total time spent is greater than 50% in coordination of care (as documented) at patient's floor/unit and/or counseling patient: Coding Level of Care Code 00295 SUB INP/OBS CARE 3/50MIN Diagnoses Bacteremia R78.81 Discitis M46.40 Acute blood loss anemia D62 Acute upper GI bleeding K92.2
[2024-08-18 07:42] LABS: Hematocrit (blood only) 27.7 % (37.0-47.0); Hemoglobin 9.1 g/dl (12.0-16.0); Mean Corpuscular Hemoglobin 30.4 pg (25.0-34.0); Mean Corpuscular Hgb Conc 32.9 g/dL (32.0-36.0); Mean Corpuscular Volume 92.6 fL (80.0-100.0); Mean Platelet Volume 9.9 fL (9.4-12.4); Platelet Count 264 K/uL (130-400); RDW Coefficient of Variation 16.4 % (11.5-14.5); RDW Standard Deviation 55.3 fL (36.4-46.3); Red Blood Count 2.99 M/uL (4.20-5.40); White Blood Count 6.99 K/ul (4.8-10.8)
[2024-08-18 08:06] LABS: Anion Gap 2 (3-11); BUN Creatinine Ratio 14.4 (10-20); Blood Urea Nitrogen 28 mg/dl (6-23); Carbon Dioxide 30 mmol/L (21-32); Chloride 104 mmol/L (98-107); Creatinine Clr Calc Pharmacy 20.1 ml/min; Glucose 83 mg/dl (70-99(Fasting)); Sodium 136 mmol/L (136-145)
[2024-08-18 08:14] LABS: INR 2.7 (0.9-1.1)
--- NOTE | 2024-08-18 09:18 | Orthopedic Progress Note ---
Date of Service August 18, 2024 Assessment & Plan (1) Discitis: Plan: Dr. Sanchez has reviewed imaging and treatment plan. She has a T12-L1 discitis/osteomyelitis. There is no evidence of epidural abscess. Continue treatment with IV antibiotic therapy per infectious disease recommendations. I have ordered a TLSO brace to be worn with up and active and ambulating. Does not have to wear when in a seated position or when in bed. No surgical intervention warranted at this time. Admission and Anticipated Discharge Date Admission Date: July 26, 2024 Subjective Updated thoracic and lumbar MRIs were performed yesterday. They now show T12-L1 discitis/osteomyelitis. she has known bacteremia with staph lugdenesis. She is on IV cefazolin. She is scheduled for a HANNAH today due to history of valve replacements. Review of Systems Review of Systems: All systems reviewed & are unremarkable except as noted in HPI & below Physical Exam Physical Exam: not performed Results & Data Vital Signs (Past 12 Hours) Vital Signs Temp Pulse Pulse Resp BP BP Pulse Ox 08/18/24 08:27 08/18/24 07:18 36.7 C 69 16 106/58 L 95 08/18/24 03:44 36.5 C 54 L 17 96/56 L 93 08/17/24 23:28 36.5 C 60 17 116/55 L 95 08/17/24 22:00 59 L O2 Del Method 08/18/24 08:27 Room Air 08/18/24 07:18 Room Air 08/18/24 03:44 Room Air 08/17/24 23:28 Room Air 08/17/24 22:00 Diagnostic Findings [place], [place] [phone] Magnetic Resonance Report Patient: CHEYANNE JETER Admit Date: 07/26/24 MR#: [id number] [facility] [address] Ac[address] ID:[id number] Address2: Date: [address] [facility] [address] [address] [id number] Age: 74 Location: 2N Sex: F Room/Bed: N276-2 Att Phy: Alyssa Barnes MD Diagnosis: ACUTE GI BLEED,ACUTE BLOOD LOSS ANEMIA Shelley Phy: Abigail Saldana MD Service Date: 08/17/24 Fam Phy: Interpreting Phy: Donovan ClintonAdmit Phy: Cristhian Edgar MD Ordering Phy: Marilu Lance PA-C cc: ~ MR thoracic spine wo con HISTORY: 74 years-old Female back pain, bacteremia acute mid back pain with bacteremia COMPARISON: Lumbar spine MRI of same day and also to 2524 TECHNIQUE: Multiplanar multisequence MRI of the lumbar spine was obtained without IV contrast FINDINGS: Anterior fusion hardware at C5-C6. Discectomy changes of the lower lumbar spine. Sigmoidal thoracolumbar scoliosis. Sternotomy wires are noted. Lumbar spine dictated separately. Severe intervertebral disc space narrowing at T12-L1. There is moderate marrow and paravertebral edema with fluid signal within the disc space. Findings have progressed from the 08/11/2024 study. No discrete epidural or paraspinal drainable fluid collection. Layering pleural effusions are noted. Mild multilevel vertebral disc space narrowing and spondylotic spurring with aovs-oq-cdyeuixo facet arthrosis throughout the thoracic spine. Normal signal within the thoracic spinal cord. Posterior annular disc bulging at T11-T12 and T12-L1. No significant central canal or neural foraminal narrowing identified. IMPRESSION: 1. Acute discitis/osteomyelitis with reactive paravertebral edema at T12-L1. 2. No acute fracture, epidural or paraspinal abscess identified at this time. 3. No high-grade central canal or foraminal narrowing. 4. Trace pleural effusions. 5. Scoliosis. ACT 112: Negative or not required by law. The above report was generated using voice recognition software. It may contain grammatical, syntax or spelling errors. Electronically signed by: Donovan Clinton M.D. 08/17/2024 2:04 PM Dictated: 08/17/24 1327 Transcribed: 08/17/24 1334 [facility], [place] [phone] Magnetic Resonance Report Patient: CHEYANNE JETER Admit Date: 07/26/24 MR#: [id number] Address1: [facility] [address] Acct ID:[id number] Address2: Date: [address] [facility] Zip: [place] [address] Age: 74 Location: 2N Sex: F Room/Bed: N276-2 Att Phy: Alyssa Barnes MD Diagnosis: ACUTE GI BLEED,ACUTE BLOOD LOSS ANEMIA Shelley Phy: Abigail Saldana MD Service Date: 08/17/24 [facility] Phy: Interpreting Phy: Angel Munson MDAit Phy: Cristhian Edgar MD Ordering Phy: Yesi Modi PA-C cc: ~ MRI OF THE LUMBAR SPINE WITHOUT CONTRAST CLINICAL HISTORY: Repeat rec given ongoing LBP, ?source of infection COMPARISON STUDY: Lumbar spine MRI August 11, 2024. TECHNIQUE: Utilizing a 1.5 Carolyn magnet and dedicated coil, multiplanar, multiecho imaging of the lumbar spine was performed without IV contrast. FINDINGS: For purposes of numbering on this exam, the L5-S1 disc space is assigned to axial image 27 of 30. There are postoperative findings consistent with L4-L5 and L5-S1 discectomy with fusion. There are no lumbar spine fractures. There is no intracanalicular mass or fluid collection. The conus terminates at the L1-L2 level. There is severe disc space narrowing T12-L1 with irregularity of the inferior endplate of T12 and superior endplate of L1. Adjacent marrow edema and paravertebral edema has developed since previous MRI of August 11, 2024. There is no epidural fluid collection. No paravertebral fluid collection is present. No additional sites of inflammation are identified. L1-2: The central canal and neural foramen are patent. There is mild facet arthrosis. L2-3: There is moderate facet arthrosis with ligamentous hypertrophy. The central canal and neural foramen are patent. L3-4: There is mild disc bulge with moderate facet arthrosis and ligamentous hypertrophy. There is mild to moderate central canal and bilateral neural foraminal stenosis. L4-5: Interbody fusion is present. The central canal and neural foramen are patent. L5-S1: Interbody fusion is present. Central canal and neural foramen are patent. IMPRESSION: 1. Findings consistent with T12-L1 discitis/osteomyelitis which has developed since previous MRI. No epidural/paravertebral abscess. The findings will be called/faxed to the ordering provider at time of dictation. 2. Otherwise, unchanged appearance of the lumbar spine status post L4-S1 fusion. 3. No lumbar spine fractures. ACT 112: Negative or not required by law. Electronically signed by: Angel Munson M.D. 08/17/2024 2:09 PM Dictated: 08/17/24 1400 Transcribed: 08/17/24 1400 Document Auto-Saved
[2024-08-18] MEDS: METOPROLOL SUCC 25MG EXT REL TAB PO SCH (10:47)
--- NOTE | 2024-08-18 14:06 | Infectious Disease Progress Nt ---
Date of Service August 18, 2024 Assessment & Plan (1) Lumbar back pain: (2) Bacteremia: (3) Fever: (4) Vertebral osteomyelitis: (5) Bacteremia due to Staphylococcus: Plan 74-year-old female with a past medical history of TIA, seizure-like activity, mechanical mitral valve and aortic valve replacement on warfarin, left distal radius fracture status post ORIF, lumbar fusion who presents on 07/26/2024 with coffee ground emesis with melena, with concern for UGIB. Hospital course c/b fever, found to have coronavirus HKU I and blood cultures with Staph lugdunensis in 4/4 bottles. She fell and sprained her ankle on 07/06/2024, and since that time she has been taking ibuprofen every 6 hours. Per EMS she was reportedly weak and pale on their arrival. BPs were in the 80s, improved with IV fluid. Admission H&H 5.6/17.5. INR supratherapeutic at 6.7. Received vitamin K in the ED and 2 units of pRBCs. She was started on Protonix gtt. Underwent an EGD on 07/26/2024, which showed old blood in the gastric body, but no obvious source. There was suspicion for mucosal bleeding 2/2 supratherapeutic INR. Course complicated by SVT versus atrial tachycardia or atrial flutter during EGD, but no recurrence. She was evaluated by cardiology. She underwent echocardiogram on 07/27/2024 which showed acceptable transvalvular gradient across the mechanical aortic valve and the mechanical mitral valve. Possible left to right shunt into the right atrium. Her course was further complicated with fever with a Tmax of 38.1 on 08/10/2024. Blood cultures grew Staphylococcus lugdunensis in 4/4 bottles. She also complained of sudden onset of left flank pain. She denied urinary symptoms. Bio fire was positive for coronavirus HKU I. Chest x-ray showed a right lung base atelectasis. KUB showed mild retained stool. CTAP showed mild nonspecific ileus, no inflammatory process or obstruction. Scarring of both kidneys and atrophy of the left kidney which was stable. No stones, hydronephrosis. Lumbar Spine shows fusion of L4-S1, scoliosis, mild spinal stenosis at L3-4 without visible compression, multilevel neural foramen narrowing without compression and left renal cysts. She has no leukocytosis. CRP 14.37-->. 25.70. Procalcitonin 3.47. She has been afebrile for greater than 72 hours. She is currently on cefazolin. A repeat echocardiogram obtained 08/11/2024 shows well-seated prosthetic aortic and mitral valve. No valvular vegetations. ID consulted for GPC bacteremia of unknown etiology. Microbiology: Blood cultures 08/10/2024: 4/ bottles Staphylococcus lugdunensis ( S oxa) Urine culture 08/10/2024 20 K [employer] omnicolens Blood culture 08/12 NGTD Antibiotics: Cefazolin 08/11ongoing # Staphylococcus lugdunensis bacteremia of unknown etiology # Coffee-ground emesis, melena resolved # Status post mitral valve replacement, mechanical # Status post aortic valve replacement, mechanical # Status post lumbar spinal fusion, hardware in place # Status post left radius ORIF # Coronavirus H KU 1 positive, on RA # TMP/SMX and doxy allergy- unk rxn # CKD Discussion: Source of staph lugdunensis bacteremia unclear. This is a coagulase-negative staph which is part of skin nicole however unlike other coag neg Staph, this can cause significant disease similar to Staphylococcus aureus. It has been associated with skin and soft tissue infections, endocarditis, bacteremia without endocarditis, bone and joint infections, hardware infections. She has 2 mechanical valves (aortic, mitral), spinal hardware and s/p L radius ORIF. TTE completed on 07/27 and on 08/11 without evidence of valve vegetations or abnormalities. The mechanical valves seem to be well-seated. HANNAH on hold given GIB, comorbidities. She complains of back pain but 08/11 MRI spine is without evidence of spinal infection. She does not have any obvious signs of skin and soft tissue infection on exam. She has faint bruising on left ankle and left lateral chest- she reports she bruised herself after fall last month. No pain at L radius. Seen by Ortho. Repeat MRI spine on 08/17 with acute discitis/osteomyelitis with reactive paravertebral edema at T12-L1. Unchanged appearance of lumbar spine s/p L4-S1 fusion. Urine culture growing only 20K [employer] omnicolens without ja urinary symptoms. Her ? L flank pain/ left sided pain seems to be in the setting of prior fall and not from an active UTI. Recommendations: -Continue cefazolin 2 g IV q12h (creatinine clearance 20) -Pt will need 6 weeks of IV antibiotics via PICC -Consider HANNAH to evaluate for prosthetic valve endocarditis. Will be balance of risks/benefits. Per cardiology, pt would not be a candidate for valve surgery even if she had prosthetic valve endocarditis. If no HANNAH done, would presume the pt has prosthetic valve endocarditis--after completion of 6 weeks of IV antibiotics, would then transition to lifelong suppressive PO antibiotic Discussed with primary team. Will continue to follow Admission and Anticipated Discharge Date Admission Date: July 26, 2024 Subjective This patient recommendation is based on a telemedicine consult request which was completed asynchronously through chart review and information provided by the primary physician. The patient was not seen or examined today. The evaluation is consultative in nature and all patient care and treatment decisions can either be accepted or rejected by the patient's primary hospital-based treating physician using their own independent medical judgment for their patient. Time Spent Reviewing Chart: 11 - 20 minutes Results & Data Vital Signs (Past 12 Hours) Vital Signs Temp Pulse Pulse Resp BP BP Pulse Ox 08/18/24 11:22 36.7 C 68 18 102/62 94 08/18/24 10:49 37.0 C 74 16 121/69 95 08/18/24 09:45 62 08/18/24 08:27 08/18/24 07:18 36.7 C 69 16 106/58 L 95 08/18/24 03:44 36.5 C 54 L 17 96/56 L 93 O2 Del Method 08/18/24 11:22 Room Air 08/18/24 10:49 Room Air 08/18/24 09:45 08/18/24 08:27 Room Air 08/18/24 07:18 Room Air 08/18/24 03:44 Room Air Laboratory Results Short CBC 08/18/24 Range/Units 07:06 WBC 6.99 (4.8-10.8) K/ul Hgb 9.1 L (12.0-16.0) g/dl Hct 27.7 L (37.0-47.0) % Plt Count 264 (130-400) K/uL BMP 08/18/24 08/18/24 07:06 08:48 Sodium 136 Potassium TNP 4.2 Chloride 104 Carbon Dioxide 30 BUN 28 H Creatinine 1.94 H Glucose 83 Calcium 9.0 Medications Administered Current Inpatient Medications Acetaminophen (Acetaminophen 325 Mg Tab) 650 mg PO Q6H PRN PRN Reason: Pain Stop: 08/26/24 22:32 Last Admin: 08/18/24 10:46 Dose: 650 mg Allopurinol (Allopurinol 100 Mg Tab) 100 mg PO DAILY [facility] Stop: 08/27/24 11:44 Last Admin: 08/18/24 08:36 Dose: 100 mg Atorvastatin Calcium (Atorvastatin 40 Mg Tab) 40 mg PO HS [facility] Stop: 08/25/24 20:59 Last Admin: 08/17/24 20:32 Dose: 40 mg Citalopram Hydrobromide (Citalopram 20 Mg Tab) 20 mg PO QAM [facility] Stop: 08/26/24 08:59 Last Admin: 08/18/24 08:36 Dose: 20 mg Folic Acid (Folic Acid 1 Mg Tab) 1 mg PO DAILY [facility] Stop: 08/28/24 08:59 Last Admin: 08/18/24 08:36 Dose: 1 mg Hydromorphone HCl (Hydromorphone Inj 0.5 Mg/0.5 Ml Syr) 0.25 mg IV Q4H PRN PRN Reason: Severe Pain (Scale 7, 8, 9,10) Stop: 08/24/24 13:17 Last Admin: 08/18/24 06:04 Dose: 0.25 mg Prochlorperazine 5 mg/ Syringe 5 mls @ 5 mls/min IV Q12H PRN PRN Reason: Nausea And Vomiting Stop: 09/07/24 11:43 Last Admin: 08/08/24 13:32 Dose: 5 mls/min Cefazolin Sodium (Ancef 2000mg) 2,000 mg in 15 mls @ 3.75 mls/min IV Q12H [facility] Stop: 08/25/24 12:29 Last Admin: 08/18/24 00:34 Dose: 3.75 mls/min Isosorbide Mononitrate (Isosorbide [place] Extended Rel 30 Mg Tabcr) 30 mg PO QAM [facility] Stop: 08/26/24 08:59 Last Admin: 08/18/24 10:43 Dose: 30 mg Levetiracetam (Levetiracetam 500 Mg Tab) 500 mg PO BID [facility] Stop: 08/25/24 20:59 Last Admin: 08/18/24 08:36 Dose: 500 mg Levothyroxine Sodium (Levothyroxine Sodium 50 Mcg Tablet) 50 mcg PO DAILYBB [facility] Stop: 08/26/24 06:29 Last Admin: 08/18/24 06:04 Dose: 50 mcg Lidocaine (Lidocaine 5% 1 Patch) 1 patch TD QAM [facility] Stop: 09/10/24 08:59 Last Admin: 08/18/24 08:37 Dose: 1 patch Metoprolol Succinate (Metoprolol Succ 25mg Ext Rel Tab) 12.5 mg PO QAM [facility] Stop: 09/14/24 08:59 Last Admin: 08/18/24 10:47 Dose: 12.5 mg Miconazole Nitrate (Miconazole Nitrate 2% Cr 30 Gm Tube) 1 appln EXT PRN PRN PRN Reason: Affected Skin Folds Stop: 09/15/24 09:53 Miscellaneous (Remove Lidoderm Patch) 1 each N/A DAILY@2100 [facility] Stop: 09/09/24 20:59 Last Admin: 08/17/24 20:33 Dose: 1 each Pantoprazole Sodium (Pantoprazole 40 Mg Tab) 40 mg PO BID [facility] Stop: 08/28/24 20:59 Last Admin: 08/18/24 08:36 Dose: 40 mg Polyethylene Glycol (Polyethylene (Miralax) 17 Gm Pack) 17 gm PO DAILY PRN PRN Reason: Constipation Stop: 08/28/24 13:31 Polyethylene Glycol (Polyethylene (Miralax) 17 Gm Pack) 17 gm PO BID [facility] Stop: 09/03/24 20:59 Last Admin: 08/18/24 08:37 Dose: Not Given Pramipexole Dihydrochloride (Pramipexole Dihydrochlo 0.25 Mg Tab) 0.125 mg PO QPM [facility] Stop: 08/25/24 20:59 Last Admin: 08/17/24 20:32 Dose: 0.125 mg Pregabalin (Pregabalin 100 Mg Cap) 100 mg PO PM [facility] Stop: 08/25/24 20:59 Last Admin: 08/17/24 20:32 Dose: 100 mg Senna/Docusate Sodium (Docusate Sodium/Senna 50/8.6mg Tab) [address] [facility] [place] Stop: 08/28/24 13:44 Last Admin: 08/18/24 08:37 Dose: Not Given Simethicone (Simethicone 80 Mg Chew) 80 mg PO Q6H PRN PRN Reason: Flatulence Stop: 08/27/24 15:51 Last Admin: 08/01/24 11:02 Dose: 80 mg Tramadol HCl (Tramadol Hcl 50 Mg Tablet) 50 mg PO Q4H PRN PRN Reason: Mod-Sev Pain (Scale 4-10) Stop: 09/02/24 18:10 Last Admin: 08/17/24 18:14 Dose: 50 mg Warfarin Sodium (Warfarin Sod 2 Mg Tab) 2 mg PO DAILY@1600 [facility] Stop: 09/10/24 15:59 Last Admin: 08/15/24 16:11 Dose: 2 mg Warfarin Sodium (Warfarin Sod 1 Mg Tab) 1 mg PO DAILY@1600 [facility] Stop: 09/15/24 15:59 Last Admin: 08/16/24 15:46 Dose: 1 mg
--- NOTE | 2024-08-18 17:12 | Hospitalist Progress Note ---
Date of Service August 18, 2024 Assessment & Plan (1) Bacteremia: (2) Discitis: (3) Acute blood loss anemia: (4) Acute upper GI bleeding: Jorge Man is a 74 year old female with a PMH of TIA, seizure like activity, hx of mechanical mitral and aortic valve, CKD, ankle sprain who presented to the ER with coffee-ground emesis x 48 hours with melena. Supratherapeutic INR on admission (6.7), reversed in the ED. she had a scope, was transfused blood, and GI bleed has resolved. She later spiked a fever and was found to be bacteremic and now has been diagnosed with acute discitis/osteomyelitis at T12-L1. #Gram positive bacteremia/Lumbar back pain/discitis/osteomyelitis T12-L1 Source of bacteremia secondary to acute discitis/osteomyelitis found on MRI 08/17. Blood cultures positive with Staph lugdunensis in 2/2 cultures. Urine culture [employer] omnicolens. Repeat blood cultures negative >48 hours Thoracic/Lumbar MRI 08/17: acute discitis/osteomyelitis w/ reactive paravertebral edema @ T12-L1. no acute fx, epidural/paraspinal abscess. no high grade central canal/foraminal narrowing. scoliosis Continue Cefazolin 2 g Q12h due to renal function x 6 weeks. Continue pain regimen Tylenol mild pain, tramadol 50 mg q4h moderate pain, Dilaudid 0.25 mg q4h severe pain, Lidocaine patch CRP now downtrending (11.65), still without leukocytosis. Trend CRP every other day Ortho spine consulted --after MRI reviewed - continue IV antibiotics per ID, no surgery indicated. TLSO brace for ambulation. Infectious disease consulted, appreciate recs - HANNAH recommended. ID recommending to weigh risks vs benefits regarding HANNAH. If patient cannot have HANNAH then ID will recommend treating as endocarditis w/ 6 weeks of IV antibiotics, followed by life long PO antibiotics. -> Made cardiology aware of these recommendations and am waiting to see whether the HANNAH can be accommodated for the patient given that this test would affect her treatment plan. Made NPO after midnight in the event that HANNAH can be completed tomorrow, 08/19. PICC line consent obtained 08/18, plan for PICC placement 08/19. #Hx of Mitral and Atrial Valve replacement/ Hx of stroke/left to right shunt seen on echo/SVT Reason for Coumadin (goal 2.5-3.5), takes 2 mg daily except skips Saturday dose. Follows with Coumadin clinic. Heparin bridged to Coumadin 07/28 Held Coumadin 08/11-08/14 due to supratherapeutic INR, suspect elevated due to acute infection (source still remains unclear) Heparin bridged to Coumadin 08/15 INR 08/18: 2.7, Coumadin 1mg given. repeat INR in AM Continue metoprolol for SVT-needs 30-day event monitor after discharge as per cardiology recommendation #Fall Witnessed fall with head strike while ambulating to bed from bathroom 08/16 - reports due to tripping while using RW Head CT negative. Skin tear on left forearm covered in Optifoam #Acute GI bleed/ Acute blood loss anemia Hgb 5.6 on arrival - s/p 2units pRBCs and Venofer x1 Suspected secondary to recent ibuprofen use with recent ankle sprain and supratherapeutic INR (6.7 on admission), was given Vitamin K and Kcentra on admission EGD 07/26 noted hematin in gastric body, otherwise without source of bleeding. Baseline chronic anemia - B12/folate/TSH WNL. S/p 1 u pRBC 08/14 - hgb stable 9.1, continue to closely monitor Continue Protonix 40 mg BID. On ASA for hx of stroke like symptoms - this is held Advance diet as tolerated, currently advanced to low fiber #JAMES superimposed on CKD Baseline Cr ~2.2. JAMES resolved 08/13 Creatinine improvement to 1.94 Lisinopril discontinued #Constipation Adjusted bowel regimen 08/18 as patient has been refusing Miralax BID and Senna frequently. Plan to continue Senna daily, switched Miralax back to prn as patient has been having episodes of diarrhea. KUB 08/10 with mild retained stool, no bowel obstruction, no gross free air continue to monitor stools #HTN BP has stabilized since discontinuing medications. Patient reports she does not cook with a lot of salt but diet upgraded to regular to mimic home environment Lisinopril, Amlodipine discontinued. Continue Imdur, Metoprolol reduced to 12.5mg daily #Seizures: No acute issues -Continue Keppra # Major depressive disorder: No acute issues -Continue Celexa #Hypothyroidism: TSH here normal -Continue Synthroid #Gout: No acute issues -Continue allopurinol, renally dosed #Hyperlipidemia-no acute issues -Continue atorvastatin Dispo: continued inpatient stay PT/ OT recommending rehab, auth sent for [facility] 08/18. DVT proph: Coumadin, SCDs Discussed with ID and cardiology providers 08/18. Updated at bedside and called daughter 08/18. Admission and Anticipated Discharge Date Admission Date: July 26, 2024 Supervising Physician Co-Signing Physician Notes PA Supervision Note: I did not personally see or examine the patient today, but I verified all cole points of JOSE Lance's assessment and plan with the following exceptions/additions: None Subjective Patient seen and examined today. Patient reports she is still experiencing back pain but denies any additional complaints. She does report the pain medication is helpful in controlling her pain. Physical Exam Constitutional: WD/WN, vitals as above Eyes: PERRL, conjunctivae normal, anicteric sclerae Respiratory: breathing unlabored Cardiovascular: well perfused Musculoskeletal: moves all extremities Psychiatric: A+Ox3, euthymic affect Results & Data Results & Data Vital Signs (Past 12 Hours) Vital Signs Temp Pulse Pulse Resp BP Pulse Ox O2 Del Method 08/18/24 15:05 37.0 C 67 18 110/55 L 94 Room Air 08/18/24 14:21 69 08/18/24 11:22 36.7 C 68 18 102/62 94 Room Air 08/18/24 10:49 37.0 C 74 16 121/69 95 Room Air 08/18/24 09:45 62 08/18/24 08:27 Room Air 08/18/24 07:18 36.7 C 69 16 106/58 L 95 Room Air PG Care Time/CCT Total # of Minutes Spent Total Time Spent with Patient: Total time spent is greater than 50% in coordination of care (as documented) at patient's floor/unit and/or counseling patient: Coding Level of Care Code 08376 SUB INP/OBS CARE 50MIN Diagnoses Bacteremia R78.81 Discitis M46.40 Acute blood loss anemia D62 Acute upper GI bleeding K92.2
[2024-08-19 09:12] LABS: Basophils # (auto) 0.04 K/uL (0.00-0.20); Basophils % (auto) 0.6 %; Eosinophils # (auto) 0.27 K/uL (0.00-0.50); Eosinophils % (auto) 4.1 %; Hematocrit (blood only) 27.4 % (37.0-47.0); Hemoglobin 8.9 g/dl (12.0-16.0); Immature Granulocytes # (auto) 0.08 K/uL (0.01-0.20); Immature Granulocytes % (auto) 1.2 %; Lymphocytes # (auto) 1.08 K/uL (1.20-3.40); Lymphocytes % (auto) 16.2 %; Mean Corpuscular Hemoglobin 30.6 pg (25.0-34.0); Mean Corpuscular Hgb Conc 32.5 g/dL (32.0-36.0); Mean Corpuscular Volume 94.2 fL (80.0-100.0); Mean Platelet Volume 9.9 fL (9.4-12.4); Monocytes # (auto) 0.86 K/uL (0.11-0.59); Monocytes % (auto) 12.9 %; Neutrophils # (auto) 4.32 K/uL (1.40-6.50); Platelet Count 272 K/uL (130-400); RDW Coefficient of Variation 16.4 % (11.5-14.5); RDW Standard Deviation 56.5 fL (36.4-46.3); Red Blood Count 2.91 M/uL (4.20-5.40); White Blood Count 6.65 K/ul (4.8-10.8)
[2024-08-19 09:30] LABS: BUN Creatinine Ratio 14.4 (10-20); Calcium 9.3 mg/dl (8.6-10.3); Creatinine Clr Calc Pharmacy 21.7 ml/min; Potassium 4.4 mmol/L (3.5-5.1)
[2024-08-19 09:36] LABS: INR 2.8 (0.9-1.1); Prothrombin Time 27.8 Seconds (9.0-12.0)
--- NOTE | 2024-08-19 16:02 | Electrocardiogram Report ---
Test Reason : Blood Pressure : */* mmHG Vent. Rate : 125 BPM Atrial Rate : 120 BPM P-R Int : * ms QRS Dur : 104 ms QT Int : 362 ms P-R-T Axes : * -13 131 degrees QTcB Int : 522 ms Supraventricular tachycardia , could be atrial flutter Left ventricular hypertrophy with repolarization abnormality Abnormal ECG When compared with ECG of 11-Aug-2024 12:51, Supraventricular tachycardia is now present Confirmed by Eber Benites ([id number]) on 08/19/2024 4:02:12 PM Referred By: REFERRED SELF Confirmed By: Eber Benites
--- NOTE | 2024-08-19 16:59 | Hospitalist Progress Note ---
Date of Service August 19, 2024 Assessment & Plan (1) Bacteremia: (2) Discitis: (3) Acute blood loss anemia: (4) Acute upper GI bleeding: Jorge Man is a 74 year old female with a PMH of TIA, seizure like activity, hx of mechanical mitral and aortic valve, CKD, ankle sprain who presented to the ER with coffee-ground emesis x 48 hours with melena. Supratherapeutic INR on admission (6.7), reversed in the ED. she had a scope, was transfused blood, and GI bleed has resolved. She later spiked a fever and was found to be bacteremic and now has been diagnosed with acute discitis/osteomyelitis at T12-L1. #Gram positive bacteremia/Lumbar back pain/discitis/osteomyelitis T12-L1 Source of bacteremia secondary to acute discitis/osteomyelitis found on MRI 08/17. Blood cultures positive with Staph lugdunensis in 2/2 cultures. Urine culture [employer] omnicolens. Repeat blood cultures negative >48 hours Thoracic/Lumbar MRI 08/17: acute discitis/osteomyelitis w/ reactive paravertebral edema @ T12-L1. no acute fx, epidural/paraspinal abscess. no high grade central canal/foraminal narrowing. scoliosis Slight increase in CRP 12.12, continue to trend every other day CBC w/o leukocytosis. Ortho spine consulted --after MRI reviewed - continue IV antibiotics per ID, no surgery indicated. TLSO brace for ambulation. ID following - HANNAH recommended, Cefazolin 2g BID x 6 weeks. (through 09/22) ID recommending to weigh risks vs benefits regarding HANNAH. If patient cannot have HANNAH then ID will recommend treating as endocarditis w/ 6 weeks of IV antibiotics, followed by life long PO antibiotics. Discussed w/ cardiology 08/19 - they do not feel HANNAH is indicated in the patient's situation and the procedure is a low yield. Discussed concern that patient would have to continue lifelong PO antibiotics which would make managing her INR difficult given multiple medication interactions w/ Warfarin. -> they are recommending she follow up with Dr. Ledesma outpatient for further discussion. Continue pain regimen Tylenol mild pain, tramadol 50 mg q4h moderate pain, Dilaudid 0.25 mg q4h severe pain, Lidocaine patch Recommend follow up w/ local ID physician upon discharge. PICC line consent obtained 08/18, plan for PICC placement 08/19, unfortunately could not be placed, plan for placement 08/20. #Hx of Mitral and Atrial Valve replacement/ Hx of stroke/left to right shunt seen on echo/SVT Reason for Coumadin (goal 2.5-3.5), takes 2 mg daily except skips Saturday dose. Follows with Coumadin clinic. Patient w/ recurrence of supratherapeutic INR 08/11-08/14, was re-bridged from heparin to Coumadin on 08/15. INR currently 2.8, monitor daily Currently receiving 1mg Coumadin daily and within therapeutic range, will continue to adjust as necessary Continue Metoprolol, needs 30 day event monitor after d/c per cardiology #Fall Witnessed fall with head strike while ambulating to bed from bathroom 08/16 - reports due to tripping while using RW Head CT negative. Skin tear on left forearm covered in Optifoam #Acute GI bleed/ Acute blood loss anemia Originally presented w/ hgb of 5.6, was given 2 units PRBCs, 1 Venofer, Vitamin K and Kcentra on admission. Suspect secondary to NSAID use due to ankle sprain s/p EGD 07/26 -> hematin in gastric body, otherwise no source of bleeding. hgb dropped 08/14, required 1 unit PRBC's, GI re-consulted at that time, no need for repeat EGD. B12/Folate/TSH WNL Hgb stable at 8.9, monitor frequently Continue PPI BID On ASA for hx of stroke like symptoms, currently held --> can likely resume on discharge. #JAMES superimposed on CKD Baseline Cr ~2.2. JAMES resolved 08/13 Creatinine improvement to 1.80 Lisinopril discontinued #Constipation Adjusted bowel regimen 08/18 as patient has been refusing Miralax BID and Senna frequently. Plan to continue Senna daily, switched Miralax back to prn as patient has been having episodes of diarrhea. KUB 08/10 with mild retained stool, no bowel obstruction, no gross free air continue to monitor stools #HTN BP has stabilized since discontinuing medications. Patient reports she does not cook with a lot of salt but diet upgraded to regular to mimic home environment Lisinopril, Amlodipine discontinued. Continue Imdur, Metoprolol reduced to 12.5mg daily Chronic conditions: Seizures: Continue Keppra MDD: Continue Celexa Hypothyroidism: TSH WNL, Continue Synthroid Gout: continue Allopurinol HLD: continue statin Dispo: currently stable for discharge, awaiting a bed at [facility] DVT proph: Coumadin, SCDs Discussed w/ cardiology 08/19 Admission and Anticipated Discharge Date Admission Date: July 26, 2024 Supervising Physician Co-Signing Physician Notes PA Supervision Note: I did not personally see or examine the patient today, but I verified all cole points of JOSE Lance's assessment and plan with the following exceptions/additions: None Subjective Patient seen and examined this morning. Patient reports to be feeling okay today. She continues to have back pain but notes that it is manageable. Patient reports that she is ready to go home. Physical Exam Constitutional: WD/WN, vitals as above Eyes: PERRL, conjunctivae normal, anicteric sclerae Respiratory: breathing unlabored Cardiovascular: well perfused Psychiatric: A+Ox3, euthymic affect Results & Data Results & Data Vital Signs (Past 12 Hours) Vital Signs Temp Pulse Resp BP BP Pulse Ox O2 Del Method 08/19/24 13:19 36.7 C 67 18 112/58 L Room Air 08/19/24 09:04 36.8 C 71 18 124/54 L 95 Room Air 08/19/24 08:28 Room Air PG Care Time/CCT Total # of Minutes Spent Total Time Spent with Patient: Total time spent is greater than 50% in coordination of care (as documented) at patient's floor/unit and/or counseling patient: Coding Level of Care Code 51905 SUB INP/OBS CARE 3/50MIN Diagnoses Bacteremia R78.81 Discitis M46.40 Acute blood loss anemia D62 Acute upper GI bleeding K92.2
[2024-08-20 07:15] LABS: Hematocrit (blood only) 27.9 % (37.0-47.0); Hemoglobin 9.1 g/dl (12.0-16.0); Mean Corpuscular Hemoglobin 30.3 pg (25.0-34.0); Mean Corpuscular Hgb Conc 32.6 g/dL (32.0-36.0); Mean Platelet Volume 9.4 fL (9.4-12.4); Platelet Count 260 K/uL (130-400); RDW Standard Deviation 54.7 fL (36.4-46.3); White Blood Count 6.33 K/ul (4.8-10.8)
[2024-08-20 07:50] LABS: Calcium 9.2 mg/dl (8.6-10.3); Creatinine Clr Calc Pharmacy 22.2 ml/min; Potassium 3.7 mmol/L (3.5-5.1)
[2024-08-20 08:01] LABS: INR 4.3 (0.9-1.1); Prothrombin Time 41.4 Seconds (9.0-12.0)
--- NOTE | 2024-08-20 09:10 | Infectious Disease Progress Nt ---
Date of Service August 20, 2024 Assessment & Plan (1) Lumbar back pain: (2) Bacteremia: (3) Fever: (4) Vertebral osteomyelitis: (5) Bacteremia due to Staphylococcus: Plan 74-year-old female with a past medical history of TIA, seizure-like activity, mechanical mitral valve and aortic valve replacement on warfarin, left distal radius fracture status post ORIF, lumbar fusion who presents on 07/26/2024 with coffee ground emesis with melena, with concern for UGIB. Hospital course c/b fever, found to have coronavirus HKU I and blood cultures with Staph lugdunensis in 4/4 bottles. She fell and sprained her ankle on 07/06/2024, and since that time she has been taking ibuprofen every 6 hours. Per EMS she was reportedly weak and pale on their arrival. BPs were in the 80s, improved with IV fluid. Admission H&H 5.6/17.5. INR supratherapeutic at 6.7. Received vitamin K in the ED and 2 units of pRBCs. She was started on Protonix gtt. Underwent an EGD on 07/26/2024, which showed old blood in the gastric body, but no obvious source. There was suspicion for mucosal bleeding 2/2 supratherapeutic INR. Course complicated by SVT versus atrial tachycardia or atrial flutter during EGD, but no recurrence. She was evaluated by cardiology. She underwent echocardiogram on 07/27/2024 which showed acceptable transvalvular gradient across the mechanical aortic valve and the mechanical mitral valve. Possible left to right shunt into the right atrium. Her course was further complicated with fever with a Tmax of 38.1 on 08/10/2024. Blood cultures grew Staphylococcus lugdunensis in 4/4 bottles. She also complained of sudden onset of left flank pain. She denied urinary symptoms. Bio fire was positive for coronavirus HKU I. Chest x-ray showed a right lung base atelectasis. KUB showed mild retained stool. CTAP showed mild nonspecific ileus, no inflammatory process or obstruction. Scarring of both kidneys and atrophy of the left kidney which was stable. No stones, hydronephrosis. Lumbar Spine shows fusion of L4-S1, scoliosis, mild spinal stenosis at L3-4 without visible compression, multilevel neural foramen narrowing without compression and left renal cysts. She has no leukocytosis. CRP 14.37-->. 25.70. Procalcitonin 3.47. She has been afebrile for greater than 72 hours. She is currently on cefazolin. A repeat echocardiogram obtained 08/11/2024 shows well-seated prosthetic aortic and mitral valve. No valvular vegetations. ID consulted for GPC bacteremia of unknown etiology. Microbiology: Blood cultures 08/10/2024: 4/4 bottles Staphylococcus lugdunensis ( S oxa) Urine culture 08/10/2024 20 K Alloscard[employer]ia omnicolens Blood culture 08/12 NG Antibiotics: Cefazolin 08/11ongoing # Staphylococcus lugdunensis bacteremia: TTE negative # T12-L1 acute discitis/osteomyelitis # UCx with only 20K Alloscard[employer] omnicolens without ja urinary symptoms: likely asymptomatic bacteriuria # Coffee-ground emesis, melena resolved # Status post mitral valve replacement, mechanical # Status post aortic valve replacement, mechanical # Status post L4-S1 spinal fusion, hardware in place # Status post left radius ORIF # Coronavirus H KU 1 positive, on RA # TMP/SMX and doxy allergy- unk rxn # CKD Discussion: Source of staph lugdunensis bacteremia unclear. This is a coagulase-negative staph which is part of skin nicole however unlike other coag neg Staph, this can cause significant disease similar to Staphylococcus aureus. It has been as sociated with skin and soft tissue infections, endocarditis, bacteremia without endocarditis, bone and joint infections, hardware infections. She has 2 mechanical valves (aortic, mitral), spinal hardware and s/p L radius ORIF. TTE completed on 07/27 and on 08/11 without evidence of valve vegetations or abnormalities. The mechanical valves seem to be well-seated. HANNAH on hold given GIB, comorbidities. She complains of back pain but 08/11 MRI spine is without evidence of spinal infection. Seen by Ortho. Repeat MRI spine on 08/17 with acute discitis/osteomyelitis with reactive paravertebral edema at T12-L1. Unchanged appearance of lumbar spine s/p L4-S1 fusion. Cardiology does not feel HANNAH is indicated, the procedure would be low yield, and pt would not be eligible for valve replacement even if she had endocarditis. There remains concern that pt could have Staph lugdunensis prosthetic valve endocarditis seeding her spine and causing the discitis/osteomyelitis. Recommendations: -Continue cefazolin 2 g IV q12h (CrCl 10-30) to complete a 6 week course from 08/12 - 09/22/24. Pt will need a PICC line -Check weekly CBC with diff, CMP to monitor for toxicity -Unfortunately, [facility] is unable to follow pts after discharge. Recommend follow-up with ID locally. -Given concern pt could have Staph lugdunensis prosthetic valve endocarditis seeding her spine and causing the discitis/osteomyelitis (no HANNAH performed, and not candidate for valve surgery if she does have PVE), recommend transition to lifelong PO antibiotic suppression with cefadroxil 500 mg PO q24h (dose reduced for CrCl) following above IV antibiotic course. Will sign off. Admission and Anticipated Discharge Date Admission Date: July 26, 2024 Subjective This patient recommendation is based on a telemedicine consult request which was completed asynchronously through chart review and information provided by the primary physician. The patient was not seen or examined today. The evaluation is consultative in nature and all patient care and treatment decisions can either be accepted or rejected by the patient's primary hospital-based treating physician using their own independent medical judgment for their patient. Time Spent Reviewing Chart: 11 - 20 minutes Results & Data Vital Signs (Past 12 Hours) Vital Signs Temp Pulse Pulse Resp BP Pulse Ox O2 Del Method 08/20/24 07:49 36.8 C 60 18 113/57 L 95 Room Air 08/20/24 07:19 57 L 08/20/24 02:54 36.6 C 60 18 107/60 93 Room Air 08/19/24 22:28 37.0 C 66 18 122/57 L 96 Room Air 08/19/24 22:01 67 08/19/24 21:10 Room Air Laboratory Results Short CBC 08/19/24 08/20/24 Range/Units 08:35 06:57 WBC 6.65 6.33 (4.8-10.8) K/ul Hgb 8.9 L 9.1 L (12.0-16.0) g/dl Hct 27.4 L 27.9 L (37.0-47.0) % Plt Count 272 260 (130-400) K/uL BMP 08/19/24 08/20/24 08:35 06:57 Sodium 138 139 Potassium 4.4 3.7 Chloride 104 105 Carbon Dioxide 31 30 BUN 26 H 30 H Creatinine 1.80 H 1.76 H Glucose 86 82 Calcium 9.3 9.2 Medications Administered Current Inpatient Medications Acetaminophen (Acetaminophen 325 Mg Tab) 650 mg PO Q6H PRN PRN Reason: Pain Stop: 08/26/24 22:32 Last Admin: 08/18/24 20:53 Dose: 650 mg Allopurinol (Allopurinol 100 Mg Tab) 100 mg PO DAILY [facility] Stop: 08/27/24 11:44 Last Admin: 08/20/24 08:12 Dose: 100 mg Atorvastatin Calcium (Atorvastatin 40 Mg Tab) 40 mg PO HS [facility] Stop: 08/25/24 20:59 Last Admin: 08/19/24 21:07 Dose: 40 mg Citalopram Hydrobromide (Citalopram 20 Mg Tab) 20 mg PO QAM [facility] Stop: 08/26/24 08:59 Last Admin: 08/20/24 08:12 Dose: 20 mg Folic Acid (Folic Acid 1 Mg Tab) 1 mg PO DAILY [facility] Stop: 08/28/24 08:59 Last Admin: 08/20/24 08:12 Dose: 1 mg Hydromorphone HCl (Hydromorphone Inj 0.5 Mg/0.5 Ml Syr) 0.25 mg IV Q4H PRN PRN Reason: Severe Pain (Scale 7, 8, 9,10) Stop: 08/24/24 13:17 Last Admin: 08/20/24 08:16 Dose: 0.25 mg Prochlorperazine 5 mg/ Syringe 5 mls @ 5 mls/min IV Q12H PRN PRN Reason: Nausea And Vomiting Stop: 09/07/24 11:43 Last Admin: 08/08/24 13:32 Dose: 5 mls/min Cefazolin Sodium (Ancef 2000mg) 2,000 mg in 15 mls @ 3.75 mls/min IV Q12H [facility] Stop: 09/22/24 12:29 Last Admin: 08/20/24 00:16 Dose: 3.75 mls/min Isosorbide Mononitrate (Isosorbide Concho Extended Rel 30 Mg Tabcr) 30 mg PO QAM [facility] Stop: 08/26/24 08:59 Last Admin: 08/20/24 08:12 Dose: 30 mg Levetiracetam (Levetiracetam 500 Mg Tab) 500 mg PO BID [facility] Stop: 08/25/24 20:59 Last Admin: 08/20/24 08:12 Dose: 500 mg Levothyroxine Sodium (Levothyroxine Sodium 50 Mcg Tablet) 50 mcg PO DAILYBB [facility] Stop: 08/26/24 06:29 Last Admin: 08/20/24 06:01 Dose: 50 mcg Lidocaine (Lidocaine 5% 1 Patch) 1 patch TD QAM [facility] Stop: 09/10/24 08:59 Last Admin: 08/20/24 08:13 Dose: 1 patch Metoprolol Succinate (Metoprolol Succ 25mg Ext Rel Tab) 12.5 mg PO QAM [facility] Stop: 09/14/24 08:59 Last Admin: 08/20/24 08:12 Dose: 12.5 mg Miconazole Nitrate (Miconazole Nitrate 2% Cr 30 Gm Tube) 1 appln EXT PRN PRN PRN Reason: Affected Skin Folds Stop: 09/15/24 09:53 Miscellaneous (Remove Lidoderm Patch) 1 each N/A DAILY@2100 [facility] Stop: 09/09/24 20:59 Last Admin: 08/19/24 21:12 Dose: Not Given Pantoprazole Sodium (Pantoprazole 40 Mg Tab) 40 mg PO BID [facility] Stop: 08/28/24 20:59 Last Admin: 08/20/24 08:12 Dose: 40 mg Polyethylene Glycol (Polyethylene (Miralax) 17 Gm Pack) 17 gm PO DAILY PRN PRN Reason: Constipation Stop: 08/28/24 13:31 Pramipexole Dihydrochloride (Pramipexole Dihydrochlo 0.25 Mg Tab) 0.125 mg PO QPM [facility] Stop: 08/25/24 20:59 Last Admin: 08/19/24 21:07 Dose: 0.125 mg Pregabalin (Pregabalin 100 Mg Cap) 100 mg PO PM [facility] Stop: 08/25/24 20:59 Last Admin: 08/19/24 21:07 Dose: 100 mg Senna/Docusate Sodium (Docusate Sodium/Senna 50/8.6mg Tab) 1 tab PO QAM [facility] Stop: 08/28/24 13:44 Last Admin: 08/20/24 08:16 Dose: 1 tab Simethicone (Simethicone 80 Mg Chew) 80 mg PO Q6H PRN PRN Reason: Flatulence Stop: 08/27/24 15:51 Last Admin: 08/01/24 11:02 Dose: 80 mg Tramadol HCl (Tramadol Hcl 50 Mg Tablet) 50 mg PO Q4H PRN PRN Reason: Mod-Sev Pain (Scale 4-10) Stop: 09/02/24 18:10 Last Admin: 08/19/24 17:25 Dose: 50 mg Warfarin Sodium (Warfarin Sod 2 Mg Tab) 2 mg PO DAILY@1600 [facility] Stop: 09/10/24 15:59 Last Admin: 08/15/24 16:11 Dose: 2 mg Warfarin Sodium (Warfarin Sod 1 Mg Tab) 1 mg PO DAILY@1600 [facility] Stop: 09/15/24 15:59 Last Admin: 08/19/24 16:37 Dose: 1 mg
--- NOTE | 2024-08-20 10:05 | Hospitalist Progress Note ---
Date of Service August 20, 2024 Assessment & Plan (1) Bacteremia: (2) Discitis: (3) Acute blood loss anemia: (4) Acute upper GI bleeding: Jorge Man is a 74 year old female with a PMH of TIA, seizure like activity, hx of mechanical mitral and aortic valve, CKD, ankle sprain who presented to the ER with coffee-ground emesis x 48 hours with melena. Supratherapeutic INR on admission (6.7), reversed in the ED. she had a scope, was transfused blood, and GI bleed has resolved. She later spiked a fever and was found to be bacteremic and now has been diagnosed with acute discitis/osteomyelitis at T12-L1. #Gram positive bacteremia/Lumbar back pain/discitis/osteomyelitis T12-L1 Source of bacteremia secondary to acute discitis/osteomyelitis found on MRI 08/17. Blood cultures positive with Staph lugdunensis in 2/2 cultures. Urine culture [employer] omnicolens. Repeat blood cultures negative >48 hours Thoracic/Lumbar MRI 08/17: acute discitis/osteomyelitis w/ reactive paravertebral edema @ T12-L1. no acute fx, epidural/paraspinal abscess. no high grade central canal/foraminal narrowing. scoliosis Slight increase in CRP 12.12, continue to trend every other day CBC w/o leukocytosis. Ortho spine consulted --after MRI reviewed - continue IV antibiotics per ID, no surgery indicated. TLSO brace for ambulation. ID Recs - HANNAH recommended, Cefazolin 2g BID x 6 weeks. (through 09/22) ID recommending to weigh risks vs benefits regarding HANNAH. If patient cannot have HANNAH then ID will recommend treating as endocarditis w/ 6 weeks of IV antibiotics, followed by life long PO antibiotics. Discussed w/ cardiology 08/19 - they do not feel HANNAH is indicated in the patient's situation and the procedure is a low yield. Discussed concern that patient would have to continue lifelong PO antibiotics which would make managing her INR di fficult given multiple medication interactions w/ Warfarin. -> they are recommending she follow up with Dr. Ledesma outpatient for further discussion. Scheduled Tylenol, Tramadol/Dilaudid for breakthrough pain. Recommend follow up w/ local ID physician upon discharge. PICC line consent obtained 08/18, plan for PICC placement 08/19, unfortunately could not be placed, plan for placement 08/20. #Hx of Mitral and Atrial Valve replacement/ Hx of stroke/left to right shunt seen on echo/SVT Reason for Coumadin (goal 2.5-3.5), takes 2 mg daily except skips Saturday dose. Follows with Coumadin clinic. Patient w/ recurrence of supratherapeutic INR 08/11-08/14, was re-bridged from heparin to Coumadin on 08/15. INR currently 4.3, monitor daily Hold Coumadin dose 08/20. Recheck in AM Continue Metoprolol, needs 30 day event monitor after d/c per cardiology As per cardiology-intracardiac shunt: A [id number] shunt was suggested on echo. Etiology not clear. Transesophageal echo may offer better evaluation but would not pursue in this nonurgent setting given that she is hospitalized for acute upper GI bleed. This can be considered in the outpatient setting with her primary rake operator, Dr. Ledesma, if deemed appropriate at that time. #Fall Witnessed fall with head strike while ambulating to bed from bathroom 08/16 - reports due to tripping while using RW Head CT negative. Skin tear on left forearm covered in Optifoam #Acute GI bleed/ Acute blood loss anemia Originally presented w/ hgb of 5.6, was given 2 units PRBCs, 1 Venofer, Vitamin K and Kcentra on admission. Suspect secondary to NSAID use due to ankle sprain s/p EGD 07/26 -> hematin in gastric body, otherwise no source of bleeding. hgb dropped 08/14, required 1 unit PRBC's, GI re-consulted at that time, no need for repeat EGD. B12/Folate/TSH WNL Hgb stable at 9.1, monitor frequently Continue PPI BID On ASA for hx of stroke like symptoms, currently held --> can likely resume on discharge. #JAMES superimposed on CKD Baseline Cr ~2.2. JAMES resolved 08/13 Creatinine improvement to 1.76 Lisinopril discontinued #Constipation Adjusted bowel regimen 08/18 as patient has been refusing Miralax BID and Senna frequently. Plan to continue Senna daily, switched Miralax back to prn as patient has been having episodes of diarrhea. KUB 08/10 with mild retained stool, no bowel obstruction, no gross free air continue to monitor stools #HTN BP has stabilized since discontinuing medications. Lisinopril, Amlodipine discontinued. Continue Imdur, Metoprolol reduced to 12.5mg daily #Seizures: No acute issues -Continue Keppra # Major depressive disorder: No acute issues -Continue Celexa #Hypothyroidism: TSH here normal -Continue Synthroid #Gout: No acute issues -Continue allopurinol, renally dosed #Hyperlipidemia-no acute issues -Continue atorvastatin Dispo: currently stable for discharge, awaiting a bed at [facility] DVT proph: Coumadin, SCDs Admission and Anticipated Discharge Date Admission Date: July 26, 2024 Supervising Physician Co-Signing Physician Notes PA Supervision Note: I did not personally see or examine the patient today, but I verified all cole points of JOSE Lance's assessment and plan with the following exceptions/additions: None Subjective Patient seen and examined this morning. patient reports she is still experiencing back pain. She has been receiving PO Tramadol and IV diluadid. She reports she was able to sit in her chair for about 1.5 hours yesterday. She has been tolerating her back brace as well. Denies any additional complaints. Physical Exam Constitutional: WD/WN, vitals as above Eyes: PERRL, conjunctivae normal, anicteric sclerae Respiratory: breathing unlabored Cardiovascular: well perfused Psychiatric: A+Ox3, euthymic affect Results & Data Results & Data Vital Signs (Past 12 Hours) Vital Signs Temp Pulse Pulse Resp BP Pulse Ox O2 Del Method 08/20/24 09:51 Room Air 08/20/24 07:49 36.8 C 60 18 113/57 L 95 Room Air 08/20/24 07:19 57 L 08/20/24 02:54 36.6 C 60 18 107/60 93 Room Air 08/19/24 22:28 37.0 C 66 18 122/57 L 96 Room Air PG Care Time/CCT Total # of Minutes Spent Total Time Spent with Patient: Total time spent is greater than 50% in coordination of care (as documented) at patient's floor/unit and/or counseling patient: Coding Level of Care Code 29553 SUB INP/OBS CARE 2/35MIN Diagnoses Bacteremia R78.81 Discitis M46.40 Acute blood loss anemia D62 Acute upper GI bleeding K92.2
[2024-08-20] MEDS: ACETAMINOPHEN 500 MG TAB PO SCH (10:27)
[2024-08-21 02:49] VITALS: TEMP 97.9
[2024-08-21 07:50] LABS: INR 2.9 (0.9-1.1); Prothrombin Time 28.2 Seconds (9.0-12.0)
[2024-08-21 07:52] VITALS: BP 130/52; RESP 17; O2SAT 96
[2024-08-21 07:54] LABS: Calcium 9.2 mg/dl (8.6-10.3); Potassium 3.7 mmol/L (3.5-5.1)
[2024-08-21 07:59] LABS: BUN Creatinine Ratio 14.8 (10-20); C Reactive Protein 5.65 mg/dl (0-0.5); Creatinine Clr Calc Pharmacy 19.2 ml/min
[2024-08-21 08:13] LABS: Hematocrit (blood only) 27.1 % (37.0-47.0); Hemoglobin 8.9 g/dl (12.0-16.0); Mean Corpuscular Hemoglobin 30.6 pg (25.0-34.0); Mean Corpuscular Hgb Conc 32.8 g/dL (32.0-36.0); Mean Corpuscular Volume 93.1 fL (80.0-100.0); RDW Coefficient of Variation 15.9 % (11.5-14.5); RDW Standard Deviation 54.5 fL (36.4-46.3); Red Blood Count 2.91 M/uL (4.20-5.40); White Blood Count 5.44 K/ul (4.8-10.8)
[2024-08-21 08:14] LABS: Mean Platelet Volume 10.3 fL (9.4-12.4); Platelet Count 253 K/uL (130-400)
[2024-08-21 08:33] LABS: Platelet Estimate Normal (Normal)
--- NOTE | 2024-08-21 10:15 | Discharge Summary ---
Discharge Summary Date of Service August 21, 2024 Principal Dx & Hospital Course #1 = Principal Diagnosis (1) Bacteremia: (2) Discitis: (3) Acute blood loss anemia: (4) Acute upper GI bleeding: Jorge Man is a 74 year old female with a PMH of TIA, seizure like activity, hx of mechanical mitral and aortic valve, CKD, ankle sprain who presented to the ER with coffee-ground emesis x 48 hours with melena. Supratherapeutic INR on admission (6.7), reversed in the ED. she had a scope, was transfused blood, and GI bleed has resolved. She later spiked a fever and was found to be bacteremic and now has been diagnosed with acute discitis/osteomyelitis at T12-L1. #Gram positive bacteremia/Lumbar back pain/discitis/osteomyelitis T12-L1 Source of bacteremia secondary to acute discitis/osteomyelitis found on MRI 08/17. Blood cultures positive with Staph lugdunensis in 2/2 cultures. Urine culture Alloscardovia omnicolens. Repeat blood cultures negative >48 hours Thoracic/Lumbar MRI 08/17: acute discitis/osteomyelitis w/ reactive paravertebral edema @ T12-L1. no acute fx, epidural/paraspinal abscess. no high grade central canal/foraminal narrowing. scoliosis CRP 5.65 on discharge. CBC w/o leukocytosis. Ortho spine consulted --after MRI reviewed - continue IV antibiotics per ID, no surgery indicated. TLSO brace for ambulation. ID Recs - HANNAH recommended, Cefazolin 2g BID x 6 weeks. (through 09/22) ID recommending to weigh risks vs benefits regarding HANNAH. If patient cannot have HANNAH then ID will recommend treating as endocarditis w/ 6 weeks of IV antibiotics, followed by life long PO antibiotics. Discussed w/ cardiology 08/19 - they do not feel HANNAH is indicated in the patient's situation and the procedure is a low yield. Discussed concern that patient would have to continue lifelong PO antibiotics which would make managing her INR difficult given multiple medication interactions w/ Warfarin. -> they are recommending she follow up with Dr. Ledesma outpatient for further discussion. Scheduled Tylenol, Tramadol/Dilaudid for breakthrough pain. Recommend follow up w/ local ID physician upon discharge. PICC placed 08/20. #Hx of Mitral and Atrial Valve replacement/ Hx of stroke/left to right shunt seen on echo/SVT Reason for Coumadin (goal 2.5-3.5), takes 2 mg daily except skips Saturday dose. Follows with Coumadin clinic. Patient w/ recurrence of supratherapeutic INR 08/11-08/14, was re-bridged from heparin to Coumadin on 08/15. INR currently 2.9, monitor daily due to IV abx. Discussed w/ anticoagulation pharmacist - > patient will require 4.5mg Warfarin weekly on discharge w/ daily INR checks at [facility]. Plan for 1mg Warfarin on Sat and . 0.5mg on , , Sat, Sat, Sun. Continue Metoprolol, needs 30 day event monitor after d/c per cardiology As per cardiology-intracardiac shunt: A [id number] shunt was suggested on echo. Etiology not clear. Transesophageal echo may offer better evaluation This can be considered in the outpatient setting with her primary master baker, Dr. Ledesma. #Fall Witnessed fall with head strike while ambulating to bed from bathroom 08/16 - reports due to tripping while using RW Head CT negative. Skin tear on left forearm covered in Optifoam #Acute GI bleed/ Acute blood loss anemia Originally presented w/ hgb of 5.6, was given 2 units PRBCs, 1 Venofer, Vitamin K and Kcentra on admission. Suspect secondary to NSAID use due to ankle sprain s/p EGD 07/26 -> hematin in gastric body, otherwise no source of bleeding. hgb dropped 08/14, required 1 unit PRBC's, GI re-consulted at that time, no need for repeat EGD. B12/Folate/TSH WNL Hgb stable at 8.9, monitor frequently Continue PPI BID, ASA resumed on discharge. Follow up with GI outpatient. #JAMES superimposed on CKD Baseline Cr ~2.2. JAMES resolved 08/13 Creatinine bumped to 2.03, still within baseline. --> monitor frequently outpatient. Lisinopril discontinued #Constipation Adjusted bowel regimen 3/ as patient has been refusing Miralax BID and Senna frequently. Plan to continue Senna daily, switched Miralax back to prn as patient has been having episodes of diarrhea. KUB 08/10 with mild retained stool, no bowel obstruction, no gross free air continue to monitor stools #HTN BP has stabilized since discontinuing medications. Lisinopril, Amlodipine discontinued. Continue Imdur, Metoprolol reduced to 12.5mg daily #Seizures: No acute issues -Continue Keppra # Major depressive disorder: No acute issues -Continue Celexa #Hypothyroidism: TSH here normal -Continue Synthroid #Gout: No acute issues -Continue allopurinol, renally dosed #Hyperlipidemia-no acute issues -Continue atorvastatin Patient discharged to [facility] 08/21. Admission HPI Per Admitting Provider Magda Muñoz is a 74 year old female who presents to the ER with coffee- ground emesis for the last 48 hours with melena. No abdominal pain. She sprained her ankle on July 06 with no fracture seen on imaging. Since this time she has been taking ibuprofen every 6 hours. She is also on warfarin for mechanical heart valve. No changes to her warfarin dose however INR 6.7 on admission. Her hemoglobin is 5.6 from baseline 9.8, 3 weeks prior. No weight loss. No fever or chills. She reports eating a hoagie yesterday and has been vomiting up onions. This morning after vomiting every hour during the night her tried to get her up in the bathroom and she was so weak she was unable to get onto the feet therefore EMS was called. She has no history of liver cirrhosis. Patient had episode of coffee ground emesis while talking to her at bedside but this is her only episode while in the ER. Discharge Exam Constitutional WD/WN, vitals as above Eyes PERRL, conjunctivae normal, anicteric sclerae Respiratory breathing unlabored Cardiovascular well perfused Psychiatric A+Ox3, euthymic affect Discharge Plan Discharge Items Patient Disposition: Transfer Inpatient Rehab Fac Reason For Visit: ACUTE GI BLEED,ACUTE BLOOD LOSS ANEMIA Discharge Diagnosis: Acute GI bleed, Osteomyelitis Activity: Resume your previous activity Non-emergency contact: Primary Care Provider and Unattended Ground Sensor Specialist Call non-emergency contact if: you have any medication questions, your symptoms worsen and your pain is not controlled Follow-up/Referrals: Antonio Ohara DO [Physician] - Troy Ledesma MD [Physician] - Stephie Blankenship MD, PhD [Pathologist] - Abigail Saldana MD [Primary Care Provider] - Diet: Low Fiber Addtl Attending Provider Instructions: Mrs. Muñoz, You were recently hospitalized originally for having blood in your vomit and underwent an emergent endoscopy with GI. This bleeding was due to your INR levels being too high. Following this you developed acute back pain and were found to have osteomyelitis which is an infection in your lumbar spine. You were evaluated by infectious disease regarding this and were placed on IV antibiotics. These will continue for a total of 6 weeks. You are now going to rehab to get stronger prior to returning home. Please see recommendations below regarding discharge. -Please continue on Cefazolin every 12 hours daily through 09/22/2024. While on this medication you should have weekly labs (CBC, CMP) -Please take scheduled Tylenol 1000mg every 8 hours. Please use a lidocaine patch daily. For breakthrough pain please use tramadol every 4 hours. -Medications discontinued: Lisinopril and Amlodipine. -Your Metoprolol has been reduced to 12.5mg daily. -Following your EGD you have been started on pantoprazole 40mg twice daily. Please continue this until seen by gastroenterology -Please continue on a daily bowel regimen while using pain medications. - Senna tablet daily and Miralax as needed. -Your Warfarin dose has changed: 1mg dose on Mondays and . 0.5mg on Saturday, Saturday, Saturday, Saturday, Saturday. [facility] will keep a very close eye on your INR while you attend rehab there. -Please wear the back brace with ambulation. -Please follow up with infectious disease, cardiology, gastroenterology, the anticoagulation clinic, and your PCP after discharge. If you develop any fever chills, pain uncontrolled by medication, chest pain, shortness of breath please report back to the ED for further care. Good luck in rehab! Marilu Lance PA-C Pending Studies at Discharge: No Stand-Alone Forms: My [facility] Skilled Items Patient informed of condition?: Yes DNR: No Discharge Level of Care: Acute rehab Communicable Disease: No Discharge Prognosis: Improving Lines: PICC Urinary Catheter: No Medications and DC Order Prescriptions: New sennosides-docusate sodium [Senokot-S] 8.6-50 mg Tablet 1 tab PO QAM 30 Days Qty: 30 0RF tramadol 50 mg Tablet 50 mg PO Q4H PRN (Reason: pain) Qty: 10 0RF acetaminophen [Tylenol Extra Strength] 500 mg Tablet 1,000 mg PO Q8H Qty: 90 0RF pantoprazole 40 mg Tablet,Delayed Release (Dr/Ec) 40 mg PO BID Qty: 60 0RF lidocaine 5 % Adhesive Patch,Medicated 1 patch transdermal QAM Qty: 30 0RF metoprolol succinate 25 mg Tablet Extended Release 24 Hr 12.5 mg PO QAM Qty: 30 0RF warfarin 1 mg tablet 1 mg PO MONTHUR Qty: 14 0RF warfarin 1 mg tablet 0.5 mg PO .TuesWedsFriSatSun Qty: 14 0RF cefazolin 2 gram recon soln 1 g IV Q12H 33 Days Continued aspirin 81 mg tablet,delayed release (DR/EC) 81 mg PO DAILY Rx Instructions: Unable to verify OTC meds at this date/time. folic acid 1 mg tablet 0 mg PO DAILY Rx Instructions: Per pharmacy, last filled 02/2024 x90 day supply. Original Directions: 1mg by mouth daily levothyroxine 50 mcg tablet 50 mcg PO QAM Qty: 90 3RF calcium carbonate-vitamin D3 600 mg-10 mcg (400 unit) tablet 1 tab PO DAILY Qty: 90 3RF citalopram 20 mg tablet 20 mg PO QAM Qty: 90 3RF allopurinol 100 mg tablet 100 mg PO DAILY Qty: 90 3RF isosorbide mononitrate 30 mg tablet extended release 24 hr 30 mg PO QAM Qty: 90 3RF atorvastatin 40 mg tablet 40 mg PO HS pramipexole 0.125 mg tablet 0.125 mg PO QPM Qty: 90 1RF Rx Instructions: administer 2 - 3 hours before bedtime pregabalin [Lyrica] 100 mg capsule 100 mg PO PM Qty: 90 0RF levetiracetam [Keppra] 500 mg tablet 500 mg PO BID Qty: 60 2RF cyanocobalamin (vitamin B-12) 1,000 mcg/mL solution 1,000 mcg IM MONTHLY PRN (Reason: B12 Deficiency ) Discontinued lisinopril 5 mg tablet 5 mg PO HS Qty: 90 3RF warfarin 2 mg tablet See Rx Instructions PO UD Qty: 78 1RF Rx Instructions: Unable to verify med at this date/time. Original Directions: none q Saturday, 2mg x 6 days per [facility] orally use as directed; oxycodone-acetaminophen 5-325 mg tablet 1 tab PO Q8H PRN (Reason: pain) Qty: 10 0RF amlodipine 2.5 mg tablet 2.5 mg PO QAM oxycodone 5 mg tablet 5 mg PO Q6H PRN (Reason: pain) Qty: 8 0RF metoprolol succinate 25 mg tablet extended release 24 hr 25 mg PO BID Discharge Orders: Discharge Order (Routine); Ordered 08/21/24 Ordered By: Marilu Lance Admission Data Admit Date/Time: 07/26/24 11:07 Attending Provider: Cole Orlando Admit Provider: Cristhian Edgar Primary Care Provider: Abigail Saldana Other Providers: Cristhian Edgar; Antonio Ohara; Arpit Higgins; Oni Sanchez; [facility]; [facility] Other Interventions: Discharge Summary Assessment (RN) Last Done: 08/21/24 12:37 Hospital Stay Data Consultations 07/26/24 11:05 ED Decision to Admit Stat 07/26/24 12:55 Consult Gastroenterology Routine 07/26/24 22:45 Consult Cardiology Routine 08/11/24 19:07 Consult Orthopedic Spine Surgery Routine 08/12/24 09:24 Consult Infectious Diseases Routine Procedures Performed Operation Date: 08/18/24 07:30 <No data on this case meets the specified criteria> Diagnostic Imagining Performed 08/10/24 16:11 CT abd pelvis wo con Urgent 08/11/24 12:12 MR lumbar spine wo con Urgent 08/16/24 13:[address] [CT head/brain wo con] Urgent 08/17/24 06:00 MR lumbar spine wo con Routine 08/17/24 08:52 MR thoracic spine wo con Routine Pending Results Patient Have Any Pending Studies at Discharge: No Discharge Instructions Given to Patient (Per Discharging Provider) Mrs. Muñoz, Lee were recently hospitalized originally for having blood in your vomit and underwent an emergent endoscopy with GI. This bleeding was due to your INR levels being too high. Following this you developed acute back pain and were found to have osteomyelitis which is an infection in your lumbar spine. You were evaluated by infectious disease regarding this and were placed on IV antibiotics. These will continue for a total of 6 weeks. You are now going to rehab to get stronger prior to returning home. Please see recommendations below regarding discharge. -Please continue on Cefazolin every 12 hours daily through 09/22/2024. While on this medication you should have weekly labs (CBC, CMP) -Please take scheduled Tylenol 1000mg every 8 hours. Please use a lidocaine patch daily. For breakthrough pain please use tramadol every 4 hours. -Medications discontinued: Lisinopril and Amlodipine. -Your Metoprolol has been reduced to 12.5mg daily. -Following your EGD you have been started on pantoprazole 40mg twice daily. Please continue this until seen by gastroenterology -Please continue on a daily bowel regimen while using pain medications. - Senna tablet daily and Miralax as needed. -Your Warfarin dose has changed: 1mg dose on Mondays and . 0.5mg on Saturday, Saturday, Saturday, Saturday, Saturday. [facility] will keep a very close eye on your INR while you attend rehab there. -Please wear the back brace with ambulation. -Please follow up with infectious disease, cardiology, gastroenterology, the anticoagulation clinic, and your PCP after discharge. If you develop any fever chills, pain uncontrolled by medication, chest pain, shortness of breath please report back to the ED for further care. Good luck in rehab! Marilu Lance PA-C Total Time Total Time Spent Total Time Spent (In Minutes): 60 Total Time Includes: Examination of the Patient, Discharge Planning, Medication Reconciliation and Communication With Other Providers Coding Level of Care Code 77581 INP/OBS DISCH >30 MIN Diagnoses Bacteremia R78.81 Discitis M46.40 Acute blood loss anemia D62 Acute upper GI bleeding K92.2
[2024-08-21 12:39] VITALS: PULSE 67
== END 2024-08-21 13:48 | DRG 378 ==
LOC: ED 09:10 → SUATTDRO 11:07 → 2S 11:07 → 3W 07-29 19:45 → 2N 08-11 20:49

== ENCOUNTER 2025-02-10 09:07 | Inpatient (IN) ==
--- NOTE | 2025-02-10 09:38 | Emergency Department Note ---
Impression & Plan Ankle fracture, lateral malleolus, closed, Ambulatory dysfunction, Back pain, Head injury, Fall ED Provider Note CHIEF COMPLAINT: Referred by doctor for foot and ankle x-ray HISTORY OF PRESENTING ILLNESS: The patient is a 74-year-old female with a PMH hypothyroidism, BIRDIE, HTN, CKD stage IV, osteoporosis, and TIA who reports to the emergency department after being referred by a provider for an x-ray of her foot and ankle. She is using a walker to triage with her . 2 days ago she stood up from her chair and rolled her left ankle which caused her to fall back and hit her head. The patient is on warfarin. She states that her INR was checked this morning and was within her therapeutic range. She denies headache, neck pain, changes in vision, slurred speech, facial droop, chest pain, shortness of breath, abdominal pain, back pain. confirms she has been acting herself. Her main complaint is her left ankle. REVIEW OF SYSTEMS: See HPI for pertinent positives and pertinent negatives. ALLERGIES: Doxycycline, sulfamethoxazole, trimethoprim MEDICATIONS: See below PAST MEDICAL HISTORY: See below PHYSICAL EXAM: VITALS: Vitals are noted on the nurses note and reviewed by myself. Vital signs stable. GENERAL: 74-year-old female, in no acute distress, nondiaphoretic, well- developed well-nourished. SKIN: Capillary refill less than 2 seconds. HEENT: Normocephalic. PERRLA. EOMI. Nares patent. Mucous membranes moist. Neck is supple without nuchal rigidity. HEART: Regular rate and rhythm without murmurs gallops or rubs. LUNGS: CTA BL without wheezes, rales or rhonchi. No retractions or accessory muscle use. ABDOMEN: Soft, nontender, without masses or organomegaly. No guarding or rebound tenderness. MUSCULOSKELETAL: Tenderness upon palpation to the lateral aspect of the left ankle. There is a moderate amount of edema appreciated. No erythema or ecchymosis. Limited ROM of left ankle secondary to discomfort. Patient is able to wiggle her toes. Tenderness does not extend into the foot or into the leg/calf. NEURO: Patient was alert and oriented. No focal neurological deficits. DIFFERENTIAL DIAGNOSIS: Sprain, strain, lateral malleolus fracture, medial malleolus fracture, trimalleolar fracture, stress fracture, osteoarthritis, dislocation, contusion, nerve injury, vessel injury, cauda equina syndrome, cord compression, disc herniation, muscle spasm, lumbar strain, epidural abscess, malignancy, UTI, among others. ED COURSE AND MEDICAL DECISION MAKING: HISTORY FROM INDEPENDENT HISTORIAN: The patient herself and her . MEDICATIONS GIVEN: Denies the need for pain or symptom management. INTERPRETATION OF LABS: No labs were obtained. INTERPRETATION OF IMAGING: Imaging studies were interpreted by myself and read by radiology as per the imaging section of this note. CT head - No acute intracranial abnormality. CT cervical spine - No fracture or subluxation. CT thoracic and lumbar spine - No acute thoracic spine fracture or subluxation. Severe disc space narrowing at T12-L1 with associated endplate irregularity. These findings suggest a sequelae of discitis/osteomyelitis shown on MRI from August 17, 2024. No definite acute process. No acute fracture or subluxation of the lumbar spine. X-ray left ankle - Soft tissue swelling with a 3 mm bone fragment adjacent to the lateral malleolus suggesting avulsion fracture. ESCALATION OF CARE CONSIDERED: Escalation of care was considered as the patient presents to the emergency department due to injuring her left ankle but also striking her head during the fall 2 days ago. The patient is on warfarin. A CT of the head and imaging of the ankle was obtained showing a fracture of the left lateral malleolus. The patient was fitted in a splint and is not able to ambulate with her walker. The patient was admitted to medicine for placement. CONSULTATION: On-call hospitalist - Presented the patient to the provider and lateral malleolus fracture. She tried an ambulatory trial here in the emergency department and was not able to ambulate with her walker safely. She was admitted for placement. Also discussed workup regarding back pain and previous history. She agrees to evaluating the patient for admission. MDM SUMMARY: I evaluated the 74-year-old female who presents to the emergency department due to injuring her left ankle. She also fell when this occurred striking her head and is on warfarin. See HPI and physical exam above. Patient denies the need for pain management. IV access was established and labs were obtained. Patient does report back pain and has a history of discitis and is supposed to be on lifelong oral antibiotics which she has not been doing. She denies changes in back pain, loss of bowel or bladder, saddle anesthesia, or fever. No leukocytosis. Blood work notes anemia. This is within the patient's normal limits. Coagulation panel obtained. Patient's INR 2.2. No electrolyte abnormality. Elevated BUN 30 and creatinine 2.13. This is typically the patient's range. Procalcitonin 0.04. Lactate 0.8. All labs reviewed with the patient. CT head is unremarkable. CT cervical spine shows no fracture or subluxation. CT thoracic and lumbar spine shows no acute change. Similar findings to MRI from August showing sequelae of discitis/osteomyelitis. X-ray of the left ankle shows a lateral malleolus fracture. The patient was put into a posterior short leg with stirrups. The patient typically ambulates with a walker and has fallen multiple times. The patient tried to ambulate on her own here in the emergency department and we do not feel it is safe for her to go home. Patient is agreeable to admission. Consultation with hospitalist can be seen in detail above. Patient is agreeable to admission. All questions answered. The patient was admitted in stable condition. DIAGNOSIS: Lateral malleolus ankle fracture, ambulatory dysfunction, back pain, head injury, fall The chart was completed utilizing [employer] Speech voice recognition software. Grammatical errors, random word insertions, pronoun errors, and incomplete sentences are an occasional consequence of this system due to software limitations, ambient noise, and hardware issues. Any formal questions or concerns about the content, text, or information contained within the body of this dictation should be directly addressed to the provider for clarification. 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 Carotid artery plaque Seizure-like activity Acquired stuttering Osteoporosis Chronic anemia Vitamin D deficiency Warfarin anticoagulation (Chronic) CKD (chronic kidney disease) stage 4, GFR 15-29 ml/min Effusion of knee joint right (Acute) Ambulatory dysfunction Paroxysmal SVT (supraventricular tachycardia) (Chronic) Chronic constipation (Chronic) RLS (restless legs syndrome) (Chronic) Chronic pain (Chronic) Hx of aortic valve replacement, mechanical H/O mitral valve replacement with mechanical valve Hypertension (Chronic) BIRDIE (obstructive sleep apnea) (Chronic) Dyslipidemia (Chronic) Hypothyroidism (Chronic) Medical History Anemia requiring transfusions Hx of gout On anticoagulant therapy Acid reflux Anemia Poor historian Hypertension followed by Dr. Ledesma Hyperlipidemia Open fracture of left distal radius (08/19/23) from a fall-saw orthopedics in the ED and was admitted to [facility] per ortho note History of CVA (cerebrovascular accident) ? year>"a long time ago" CKD (chronic kidney disease), stage III Surgical History History of colonoscopy History of appendectomy H/O carotid endarterectomy right History of tooth extraction History of tonsillectomy History of cardiac cath no stents placed ? details History of heart valve repair 1986 S/P ORIF (open reduction internal fixation) fracture Lt distal radius 08/23/23 Dr. Oscar Jones S/P total abdominal hysterectomy History of cholecystectomy H/O oophorectomy S/P repair of paraesophageal hernia History of total right hip replacement S/P lumbar fusion H/O hemorrhoidectomy Family History Father Heart disease Mother Stroke Other No family history of adverse response to anesthesia Social History Smoking Status: Never smoker Second Hand Exposure: No; Do You Dip or Chew Tobacco: No; Hx Alcohol Use: No Hx Substance Use: No Preferred Language: Kazakh Communication Ability: Effective Visual Impairment: No Limitations Hearing Ability: Hard of Hearing Religion Professor Required: No Beliefs That Will Affect Care: None marital status: Current Living Situation: Spouse Current Living Situation Comment: Trailer current occupational status: retired How many Children do You have: 2 Other Information That Helps Us Care for You: No Feels Safe at Home: Yes Childhood Exposure to Second-Hand Smoke: No Diet: regular Diet Comment: regular caffeine: No Dental Care, Regularly: No Physical Activity Frequency: Does not Exercise Seatbelt Use: always Sunscreen Use: No Assistive Devices: Walker Allergies Allergies Allergy/AdvReac Type Severity Reaction Status Date / Time doxycycline Allergy Unknown CAN'T Verified 01/25/25 14:12 REMEMBER sulfamethoxazole Allergy Unknown CAN'T Verified 01/25/25 14:12 REMEMBER trimethoprim Allergy Unknown CAN'T Verified 01/25/25 14:12 REMEMBER Home Meds Home Medications Medication Instructions Recorded Confirmed atorvastatin 40 mg tablet 40 mg PO HS 07/19/23 02/10/25 aspirin 81 mg tablet,delayed 81 mg PO QAM 06/18/24 02/10/25 release cyanocobalamin (vitamin B-12) 1,000 mcg IM MONTHLY PRN B12 07/26/24 02/10/25 1,000 mcg/mL injection solution Deficiency acetaminophen 500 mg tablet 1,000 mg PO Q8H PRN pain 11/12/24 02/10/25 (Tylenol Extra Strength) allopurinol 100 mg tablet 100 mg PO QAM 12/28/24 02/10/25 warfarin 2 mg tablet 2 mg PO UD 02/10/25 02/10/25 Previous Rx's Medication Instructions Recorded citalopram 20 mg tablet 20 mg PO QAM #90 tabs 03/10/24 isosorbide mononitrate 30 mg 30 mg PO QAM #90 tabs 07/22/24 tablet,extended release 24 hr lidocaine 5 % topical patch 1 patch transdermal QAM #30 ea 08/21/24 metoprolol succinate 25 mg 12.5 mg (1/2 x 25 mg) PO QAM #30 08/21/24 tablet,extended release 24 hr tabs pantoprazole 40 mg tablet,delayed 40 mg PO BID #60 tabs 08/21/24 release pramipexole 0.125 mg tablet 0.125 mg PO QPM #90 tabs 10/22/24 tramadol 50 mg tablet 50 mg PO Q4H PRN pain #20 tabs 11/16/24 levetiracetam 250 mg tablet 250 mg PO QPM 30 days #30 tabs 11/23/24 (Keppra) levetiracetam 500 mg tablet 500 mg PO BID #60 tabs 11/23/24 (Keppra) levothyroxine 50 mcg tablet 50 mcg PO QAM #90 tabs 12/21/24 folic acid 1 mg tablet 1 mg PO DAILY #90 tabs 12/29/24 calcium 600 mg (as 1 tab PO DAILY #90 tabs 01/22/25 carbonate)-vitamin D3 10 mcg (400 unit) tablet pregabalin 100 mg capsule (Lyrica) 100 mg PO BID #180 caps 01/25/25 Results & Data (ED) Vital Signs Vital Signs - 24 hr 02/10/25 09:20 02/10/25 11:07 02/10/25 13:00 Temperature 36.6 C Temperature Source Temporal Artery Scan Pulse Rate 60 Pulse Rate [Apical] 54 L 56 L Respiratory Rate 18 14 14 Respiratory Effort / Characteristics Non-Labored Spontaneous Non-Labored Spontaneous Respiratory Depth Normal Normal Respiratory Pattern Regular Regular Blood Pressure 121/56 L Blood Pressure [Right Arm] 128/56 L 122/56 L Blood Pressure Mean 77 Blood Pressure Mean [Right Arm] 80 78 Blood Pressure Position [Right Arm] Lying Lying Pulse Oximetry 98 96 97 Oxygen Delivery Method Room Air Room Air Room Air Sepsis New/Unexplained Change in Mental Status No Sepsis Action Taken by Nursing No Action Required Laboratory Data 02/10/25 11:43 02/10/25 11:43 Lab Results 02/10/25 Range/Units 11:43 WBC 6.98 (4.8-10.8) K/ul RBC 2.91 L (4.20-5.40) M/uL Hgb 9.3 L (12.0-16.0) g/dl Hct 28.4 L (37.0-47.0) % MCV 97.6 (80.0-100.0) fL MCH 32.0 (25.0-34.0) pg MCHC 32.7 (32.0-36.0) g/dL RDW Std Deviation 53.9 H (36.4-46.3) fL RDW Coeff of Gisele 15.2 H (11.5-14.5) % Plt Count 130 (130-400) K/uL MPV 11.7 (9.4-12.4) fL Immature Gran % (Auto) 0.3 % Neut % (Auto) 70.5 % Lymph % (Auto) 14.0 % [place] % (Auto) 10.3 % Eos % (Auto) 4.6 % Baso % (Auto) 0.3 % Neut # (Auto) 4.92 (1.40-6.50) K/uL Lymph # (Auto) 0.98 L (1.20-3.40) K/uL [place] # (Auto) 0.72 H (0.11-0.59) K/uL Eos # (Auto) 0.32 (0.00-0.50) K/uL Baso # (Auto) 0.02 (0.00-0.20) K/uL Immature Gran # (Auto) 0.02 (0.01-0.20) K/uL PT 22.7 H (9.0-12.0) Seconds INR 2.2 H (0.9-1.1) Sodium 140 (136-145) mmol/L Potassium 4.6 (3.5-5.1) mmol/L Chloride 109 H (98-107) mmol/L Carbon Dioxide 27 (21-32) mmol/L Anion Gap 4 (3-11) BUN 30 H (6-23) mg/dl Creatinine 2.13 H (0.6-1.2) mg/dl Est Cr Clr Drug Dosing 19.9 ml/min eGFR 23.86 BUN/Creatinine Ratio 14.1 (10-20) Glucose 70 (70-99(Fasting)) mg/dl Lactate 0.8 (0.4-2.0) mmol/L Calcium 9.4 (8.6-10.3) mg/dl Total Bilirubin 1.0 (0.2-1.0) mg/dl AST 17 (13-39) U/L ALT 6 L (7-52) U/L Alkaline Phosphatase 96 (34-104) U/L Total Protein 6.8 (6.0-8.3) gm/dl Albumin 3.8 (3.4-5.0) gm/dl Globulin 3.0 (2.5-4.0) gm/dl Albumin/Globulin Ratio 1.3 (0.9-2) Procalcitonin 0.04 (0-0.5) ng/ml Administered Medications Tramadol HCl (Tramadol Hcl 50 Mg Tablet) 50 mg PO Q4H PRN PRN Reason: pain Stop: 03/12/25 17:09 Last Admin: 02/10/25 17:55 Dose: 50 mg Documented By: CS Discontinued Medications Warfarin Sodium (Warfarin Sod 2 Mg Tab) 2 mg PO NOW STA Stop: 02/10/25 16:12 Last Admin: 02/10/25 16:34 Dose: 2 mg Documented By: YAHIR Imaging Data Radiologist's Impression: Ankle X-Ray 08/27/25 09:47 XR ankle LT min 3V routine HISTORY: 74 years-old Female ankle pain acute pain of the left ankle COMPARISON: 07/06/2024 TECHNIQUE: 3 views of the left ankle FINDINGS: 3 mm bone fragment noted adjacent to the malleolus, not seen on prior, however there was no true AP projection on the previous study. Moderate anterolateral predominant soft tissue swelling. Arterial calcifications are noted. Demineralized appearance of the bones with mild osteoarthritis. No dislocation or other acute osseous abnormality identified. Mild spurring of the calcaneus. IMPRESSION: Soft tissue swelling with 3 mm bone fragment adjacent to the lateral malleolus suggestive of an age-indeterminate avulsion fracture, likely new compared to the 07/06/2024 study. ACT 112: Negative or not required by law. The above report was generated using voice recognition software. It may contain grammatical, syntax or spelling errors. Electronically signed by: Donovan Clinton M.D. 02/10/2025 10:[address] 02/10/25 09:47 CT cervical spine wo con CLINICAL HISTORY: 74 years-old Female with fall. Acute neck injury status post fall COMPARISON: CTA neck 05/14/2024 TECHNIQUE: Multiple axial CT images of the cervical spine were obtained without contrast. A dose lowering technique was utilized adhering to the principles of ALARA. FINDINGS: Demineralized appearance of the bones. Discectomy at C5-C6. Multilevel degenerative changes include moderate disc space narrowing at C3-C4 along with moderate to severe multilevel facet arthrosis. Predental interval measures 3.3 mm, unchanged. No acute fracture or subluxation. Cervical levoscoliosis. Developmental incomplete bony fusion across the posterior arch of C1. Multilevel neural foraminal narrowing. Atherosclerosis of the carotid bulbs. The cervical soft tissues appear unremarkable. The visualized lung apices appear clear. IMPRESSION: No acute fracture or subluxation. ACT 112: Negative or not required by law. The above report was generated using voice recognition software. It may contain grammatical, syntax or spelling errors. Electronically signed by: Donovan Clinton M.D. 02/10/2025 11:[address] 02/10/25 09:47 CT SCAN OF THE BRAIN WITHOUT IV CONTRAST CLINICAL HISTORY: Fall. COMPARISON STUDY: CT of the brain dated 08/16/2024 TECHNIQUE: Unenhanced axial CT scan of the brain is performed from the vertex to the skull base. Images are reviewed in the axial, sagittal, coronal planes. A dose lowering technique was utilized adhering to the principles of ALARA. FINDINGS: Brain parenchyma: There is age-related involutional change noting moderate subcortical and periventricular microangiopathic disease. There is no hemorrhage, mass effect, or evidence of acute territorial ischemia by CT criteria. Chronic lacunar infarcts are noted in the left thalamus and the left cerebellar hemisphere. Sepulveda-white matter differentiation is preserved. No extra- axial fluid collection is seen. Ventricles, sulci, cisterns: Prominent secondary to involutional change. Intracranial vasculature: There is atherosclerotic calcification of the cavernous carotid arteries. Calvarium: Unremarkable. Sinuses and mastoids: There is trace mucosal thickening in the right maxillary antrum. The visualized paranasal sinuses are otherwise clear. There is trace right mastoid effusion. The left mastoid air cells are well pneumatized. Orbits: The bony orbits are grossly intact. IMPRESSION: There is no hemorrhage, mass effect, or evidence of acute territorial ischemia by CT criteria. ACT 112: Negative or not required by law. Electronically signed by: Amaury Mcgovern M.D. 02/10/2025 11:[address] 02/10/25 10:44 CT lumbar spine wo con HISTORY: 74 years-old Female back pain acute low back pain COMPARISON: MRI lumbar spine 08/17/2024 TECHNIQUE: Multiple axial CT images of the lumbar spine were obtained without IV contrast. FINDINGS: Partially imaged severe intervertebral disc space narrowing with endplate irregularity at T12-L1 appears similar to the prior MR study. No progressive or new sites of osseous erosion. No paravertebral edema, epidural or paraspinal fluid collections identified on this exam. Cortical thinning of the kidneys. Tiny subcentimeter probable complex and simple cysts of the left kidney. Atherosclerosis of the aorta. Surgical clips within the retroperitoneum. L4-L5 and L5-S1 discectomy. Demineralized appearance of the bones without acute fracture or subluxation. Suboptimal evaluation of the central canal and neural foramen by CT technique. L2-L3: Mild central canal stenosis with patent neural foramen. L3-L4: Moderate central canal stenosis with mild bilateral neural foraminal narrowing secondary to spondylitic spurring with posterior annular disc bulge, ligamentum flavum thickening with moderate facet arthrosis. IMPRESSION: 1. No acute fracture or subluxation. 2. Partially imaged severe intervertebral disc space narrowing with endplate irregularity at T12-L1 appears similar to the prior MRI study from 08/17/2024. No new or progressive endplate erosions are identified by CT. 3. No paravertebral edema, epidural or paravertebral fluid collections. 4. Degenerative and postoperative changes as above. ACT 112: Negative or not required by law. The above report was generated using voice recognition software. It may contain grammatical, syntax or spelling errors. Electronically signed by: Donovna Clinton M.D. 02/10/2025 11:[address] 02/10/25 10:44 CT OF THE THORACIC SPINE CLINICAL HISTORY: Back pain, history infection. COMPARISON STUDY: Thoracic spine MRI August 17, 2024. Chest CT December 12, 2015. TECHNIQUE: Helical axial images of the thoracic spine were obtained. Sagittal and coronal reconstructions were viewed. Automated exposure control was utilized for the study. A dose lowering technique was utilized adhering to the principles of ALARA. FINDINGS: Moderate thoracic spine dextroscoliosis is unchanged. Vertebral body heights within the thoracic spine are maintained. There are no fractures within the thoracic spine. There are no suspicious osseous lesions within the thoracic spine. Severe disc space narrowing at the T12-L1 level is noted. There is associated endplate irregularity, sclerosis and osteophytosis. These findings suggest sequela of discitis/osteomyelitis which was shown on MRI of August 17, 2024. Minimal paravertebral stranding is present. Central canal is suboptimally assessed by CT. No definite acute process within the thoracic spine is identified by CT. Otherwise, there is mild multilevel disc space narrowing and endplate osteophyte ptosis. Vacuum disc phenomenon is noted at several levels. There is moderate facet arthrosis at multiple levels within the thoracic spine. IMPRESSION: 1. No acute thoracic spine fracture or subluxation. 2. Severe disc space narrowing at T12-L1 with associated endplate irregularity, sclerosis and osteophytosis. The findings suggest the sequela of discitis/osteomyelitis shown on MRI of August 17, 2024. No definite acute process by CT. 3. No change in thoracic spine dextroscoliosis. 4. Mild degenerative disc disease and moderate facet arthrosis within the thoracic spine. Suboptimal evaluation of the central canal and neural foramen given CT technique. ACT 112: Negative or not required by law. Electronically signed by: Angel Munson M.D. 02/10/2025 11:37 AM Discharge Plan Visit Data Chief Complaint: Foot Injury/Pain Stated Complaint: REF BY DOC FOR FOOT/ ANKLE XRAY ED Provider: Amaury Reza ED Midlevel Provider: Mag Griffin Discharge Problem: Ankle fracture, lateral malleolus, closed, Ambulatory dysfunction, Back pain, Head injury, Fall Patient Disposition: Admitted As Inpatient Condition: Good Discharge Instructions Interventions: ED Discharge Assessment Last Done: 02/10/25 16:44 Discharge Problem: Ankle fracture, lateral malleolus, closed Qualifiers: Encounter type: initial encounter Fracture alignment: displaced Laterality: l eft Qualified Code(s): S82.62XA - Displaced fracture of lateral malleolus of left fibula, initial encounter for closed fracture Back pain Qualifiers: Back pain location: thoracic back pain Chronicity: acute Back pain laterality: left Qualified Code(s): M54.6 - Pain in thoracic spine Head injury Qualifiers: Encounter type: initial encounter Qualified Code(s): S09.90XA - Unspecified injury of head, initial encounter Fall Qualifiers: Encounter type: initial encounter Qualified Code(s): W19.XXXA - Unspecified fall, initial encounter
--- NOTE | 2025-02-10 10:11 | XRay Report ---
XR ankle LT min 3V routine HISTORY: 74 years-old Female ankle pain acute pain of the left ankle COMPARISON: 07/06/2024 TECHNIQUE: 3 views of the left ankle FINDINGS: 3 mm bone fragment noted adjacent to the malleolus, not seen on prior, however there was no true AP p rojection on the previous study. Moderate anterolateral predominant soft tissue swelling. Arterial ca lcifications are noted. Demineralized appearance of the bones with mild osteoarthritis. No dislocatio n or other acute osseous abnormality identified. Mild spurring of the calcaneus. IMPRESSION: Soft tissue swelling with 3 mm bone fragment adjacent to the lateral malleolus suggestive of an age-i ndeterminate avulsion fracture, likely new compared to the 07/06/2024 study. ACT 112: Negative or not required by law. The above report was generated using voice recognition software. It may contain grammatical, syntax o r spelling errors. Electronically signed by: Donovan Clinton M.D. 02/10/2025 10:10 AM
--- NOTE | 2025-02-10 11:29 | CT Scan Report ---
CT SCAN OF THE BRAIN WITHOUT IV CONTRAST CLINICAL HISTORY: Fall. COMPARISON STUDY: CT of the brain dated 08/16/2024 TECHNIQUE: Unenhanced axial CT scan of the brain is performed from the vertex to the skull base. Imag es are reviewed in the axial, sagittal, coronal planes. A dose lowering technique was utilized adheri ng to the principles of ALARA. FINDINGS: Brain parenchyma: There is age-related involutional change noting moderate subcortical and periventri cular microangiopathic disease. There is no hemorrhage, mass effect, or evidence of acute territorial ischemia by CT criteria. Chronic lacunar infarcts are noted in the left thalamus and the left cerebe llar hemisphere. Sepulveda-white matter differentiation is preserved. No extra-axial fluid collection is s een. Ventricles, sulci, cisterns: Prominent secondary to involutional change. Intracranial vasculature: There is atherosclerotic calcification of the cavernous carotid arteries. Calvarium: Unremarkable. Sinuses and mastoids: There is trace mucosal thickening in the right maxillary antrum. The visualized paranasal sinuses are otherwise clear. There is trace right mastoid effusion. The left mastoid air c ells are well pneumatized. Orbits: The bony orbits are grossly intact. IMPRESSION: There is no hemorrhage, mass effect, or evidence of acute territorial ischemia by CT soto gtz. ACT 112: Negative or not required by law. Electronically signed by: Amaury Mcgovern M.D. 02/10/2025 11:28 AM
--- NOTE | 2025-02-10 11:38 | CT Scan Report ---
CT OF THE THORACIC SPINE CLINICAL HISTORY: Back pain, history infection. COMPARISON STUDY: Thoracic spine MRI August 17, 2024. Chest CT December 12, 2015. TECHNIQUE: Helical axial images of the thoracic spine were obtained. Sagittal and coronal reconstru ctions were viewed. Automated exposure control was utilized for the study. A dose lowering techniqu e was utilized adhering to the principles of ALARA. FINDINGS: Moderate thoracic spine dextroscoliosis is unchanged. Vertebral body heights within the tho racic spine are maintained. There are no fractures within the thoracic spine. There are no suspicious osseous lesions within the thoracic spine. Severe disc space narrowing at the T12-L1 level is noted. There is associated endplate irregularity, sclerosis and osteophytosis. These findings suggest seque la of discitis/osteomyelitis which was shown on MRI of August 17, 2024. Minimal paravertebral stranding is present. Central canal is suboptimally assessed by CT. No definite acute process within the thora cic spine is identified by CT. Otherwise, there is mild multilevel disc space narrowing and endplate osteophyte ptosis. Vacuum disc phenomenon is noted at several levels. There is moderate facet arthros is at multiple levels within the thoracic spine. IMPRESSION: 1. No acute thoracic spine fracture or subluxation. 2. Severe disc space narrowing at T12-L1 with associated endplate irregularity, sclerosis and osteoph ytosis. The findings suggest the sequela of discitis/osteomyelitis shown on MRI of August 17, 2024. No definite acute process by CT. 3. No change in thoracic spine dextroscoliosis. 4. Mild degenerative disc disease and moderate facet arthrosis within the thoracic spine. Suboptimal evaluation of the central canal and neural foramen given CT technique. ACT 112: Negative or not required by law. Electronically signed by: Angel Munson M.D. 02/10/2025 11:37 AM
--- NOTE | 2025-02-10 11:41 | CT Scan Report ---
CT cervical spine wo con CLINICAL HISTORY: 74 years-old Female with fall. Acute neck injury status post fall COMPARISON: CTA neck 05/14/2024 TECHNIQUE: Multiple axial CT images of the cervical spine were obtained without contrast. A dose low ering technique was utilized adhering to the principles of ALARA. FINDINGS: Demineralized appearance of the bones. Discectomy at C5-C6. Multilevel degenerative changes include moderate disc space narrowing at C3-C4 along with moderate to severe multilevel facet arthro sis. Predental interval measures 3.3 mm, unchanged. No acute fracture or subluxation. Cervical levosc oliosis. Developmental incomplete bony fusion across the posterior arch of C1. Multilevel neural fora rhonda narrowing. Atherosclerosis of the carotid bulbs. The cervical soft tissues appear unremarkable. The visualized lung apices appear clear. IMPRESSION: No acute fracture or subluxation. ACT 112: Negative or not required by law. The above report was generated using voice recognition software. It may contain grammatical, syntax o r spelling errors. Electronically signed by: Donovan Clinton M.D. 02/10/2025 11:39 AM
--- NOTE | 2025-02-10 11:46 | CT Scan Report ---
CT lumbar spine wo con HISTORY: 74 years-old Female back pain acute low back pain COMPARISON: MRI lumbar spine 08/17/2024 TECHNIQUE: Multiple axial CT images of the lumbar spine were obtained without IV contrast. FINDINGS: Partially imaged severe intervertebral disc space narrowing with endplate irregularity at T12-L1 appe ars similar to the prior MR study. No progressive or new sites of osseous erosion. No paravertebral e ewa, epidural or paraspinal fluid collections identified on this exam. Cortical thinning of the kidn eys. Tiny subcentimeter probable complex and simple cysts of the left kidney. Atherosclerosis of the aorta. Surgical clips within the retroperitoneum. L4-L5 and L5-S1 discectomy. Demineralized appearanc e of the bones without acute fracture or subluxation. Suboptimal evaluation of the central canal and neural foramen by CT technique. L2-L3: Mild central canal stenosis with patent neural foramen. L3-L4: Moderate central canal stenosis with mild bilateral neural foraminal narrowing secondary to sp ondylitic spurring with posterior annular disc bulge, ligamentum flavum thickening with moderate face t arthrosis. IMPRESSION: 1. No acute fracture or subluxation. 2. Partially imaged severe intervertebral disc space narrowing with endplate irregularity at T12-L1 a ppears similar to the prior MRI study from 08/17/2024. No new or progressive endplate erosions are iden tified by CT. 3. No paravertebral edema, epidural or paravertebral fluid collections. 4. Degenerative and postoperative changes as above. ACT 112: Negative or not required by law. The above report was generated using voice recognition software. It may contain grammatical, syntax o r spelling errors. Electronically signed by: Donovan Clinton M.D. 02/10/2025 11:44 AM
[2025-02-10 11:59] LABS: Hematocrit (blood only) 28.4 % (37.0-47.0); Hemoglobin 9.3 g/dl (12.0-16.0); Immature Granulocytes # (auto) 0.02 K/uL (0.01-0.20); Immature Granulocytes % (auto) 0.3 %; Mean Corpuscular Hemoglobin 32.0 pg (25.0-34.0); Mean Corpuscular Volume 97.6 fL (80.0-100.0); Platelet Count 130 K/uL (130-400); RDW Standard Deviation 53.9 fL (36.4-46.3); Red Blood Count 2.91 M/uL (4.20-5.40); White Blood Count 6.98 K/ul (4.8-10.8)
[2025-02-10 12:17] LABS: Alanine Aminotransferase 6.0 U/L (7-52); Albumin Globulin Ratio 1.3 (0.9-2); Albumin Level 3.8 gm/dl (3.4-5.0); Alkaline Phosphatase 96.0 U/L (34-104); Anion Gap 4.0 (3-11); Bilirubin,Total 1.0 mg/dl (0.2-1.0); Blood Urea Nitrogen 30.0 mg/dl (6-23); Calcium 9.4 mg/dl (8.6-10.3); Carbon Dioxide 27.0 mmol/L (21-32); Chloride 109.0 mmol/L (98-107); Creatinine Clr Calc Pharmacy 19.9 ml/min; Globulin 3.0 gm/dl (2.5-4.0); Glucose 70.0 mg/dl (70-99(Fasting)); Potassium 4.6 mmol/L (3.5-5.1); Sodium 140.0 mmol/L (136-145); Total Protein 6.8 gm/dl (6.0-8.3)
--- NOTE | 2025-02-10 12:26 | Emergency Department Note ---
ED Visit Note I was consulted by the Advanced Practice Provider. I personally made/approved the management plan and take responsibility for the patient management. I performed a substantive portion of the visit. This includes the aspects of: [-I independently interpreted the following studies:][Left ankle film does suggest potential small distal fibular fracture/avulsion.] Patient presents with a fall 2 days ago. She had struck her head. She takes warfarin daily, INR today was therapeutic. Brain CT shows no acute bleed or mass effect. Left ankle film does show a subtle fracture. Laboratory work was at baseline and somewhat reassuring. CT imaging of the thoracic and lumbar spine seemed to show stable findings from her prior osteomyelitis. Unfortunately, the patient was unable to ambulate with this ankle injury. She will require a hospital stay for PT OT/rehab. She is not safe for discharge home. .
[2025-02-10 12:28] LABS: INR 2.2 (0.9-1.1); Prothrombin Time 22.7 Seconds (9.0-12.0)
--- NOTE | 2025-02-10 14:53 | History & Physical Report ---
Date of Service February 10, 2025 Assessment & Plan (1) Avulsion fracture of ankle: (2) Vertebral osteomyelitis: (3) H/O mitral valve replacement with mechanical valve: (4) Hx of aortic valve replacement, mechanical: (5) Hypertension: Plan Magda is a 74 year old female with a PMH of TIA, seizure like activity, hx of mechanical mitral and aortic valve (on coumadin), and CKD who presents after a fall. xray with avulsion fracture, difficulty ambulating with walker, admitted for PT/OT evals. #Fall | Avulsion fracture - ankle x-ray showing 3 mm bone fragment adjacent to lateral malleolus suggestive of avulsion fracture. Splint in placefollow-up with orthopedics for repeat x-rays Check orthostatic VS PT/OT #Mechanical Valve - seen in the anticoagulation condition and day of admission, INR goal 2.5-3.5 Continue Coumadin #hx of discitis/osteomyelitis - Admission for such in August, seen by ID, completed 6 weeks of cefazolin and then lifelong PO antibiotics (have not been started) Blood cultures / CT L&T spine ordered by ED per anticoagulation clinic. No acute findings - sequela of osteomyelitis Blood cultures pending Start cefadroxil 500mg q24 hours will need local ID follow up no infectious symptoms on admission, no WBC #Hx of TIA Continue ASA, Statin #HTN Continue Imdur, Metoprolol #Seizure like activity Continue Keppra #Hypothyroid Continue Synthroid #Mental Health Continue Celexa #GERD Continue PPI Dispo: obs to med/surg, pending PT - pt hopeful to not have to go to rehab DVT proh: home coumadin History of Present Illness Chief Complaint: fall Primary Care Provider: Abigail Saldana MD Magda is a 74 year old female with a PMH of TIA, seizure like activity, hx of mechanical mitral and aortic valve (on coumadin), and CKD who presents after a fall. reports fall was a few days ago and she has been having ankle pain since. Has been taking Tylenol for the pain. States she was getting up from a recliner and trying to get to the end table and her foot twisted. Denies lightheaded or dizziness when it happened. Denies fevers chills appetite changes recently. No signs of infection. Allergies Allergy/AdvReac Type Severity Reaction Status Date / Time doxycycline Allergy Unknown CAN'T Verified 01/25/25 14:12 REMEMBER sulfamethoxazole Allergy Unknown CAN'T Verified 01/25/25 14:12 REMEMBER trimethoprim Allergy Unknown CAN'T Verified 01/25/25 14:12 REMEMBER Home Medications Medication Instructions Recorded Confirmed Type atorvastatin 40 mg tablet 40 mg PO HS 07/19/23 02/10/25 History citalopram 20 mg tablet 20 mg PO QAM #90 tabs 03/10/24 02/10/25 Rx aspirin 81 mg tablet,delayed 81 mg PO QAM 06/18/24 02/10/25 History release isosorbide mononitrate 30 mg 30 mg PO QAM #90 tabs 07/22/24 02/10/25 Rx tablet,extended release 24 hr cyanocobalamin (vitamin B-12) 1,000 mcg IM MONTHLY PRN B12 07/26/24 02/10/25 History 1,000 mcg/mL injection solution Deficiency lidocaine 5 % topical patch 1 patch transdermal QAM #30 ea 08/21/24 02/10/25 Rx metoprolol succinate 25 mg 12.5 mg (1/2 x 25 mg) PO QAM #30 08/21/24 02/10/25 Rx tablet,extended release 24 hr tabs pantoprazole 40 mg tablet,delayed 40 mg PO BID #60 tabs 08/21/24 02/10/25 Rx release pramipexole 0.125 mg tablet 0.125 mg PO QPM #90 tabs 10/22/24 02/10/25 Rx acetaminophen 500 mg tablet 1,000 mg PO Q8H PRN pain 11/12/24 02/10/25 History (Tylenol Extra Strength) tramadol 50 mg tablet 50 mg PO Q4H PRN pain #20 tabs 11/16/24 02/10/25 Rx levetiracetam 250 mg tablet 250 mg PO QPM 30 days #30 tabs 11/23/24 02/10/25 Rx (Keppra) levetiracetam 500 mg tablet 500 mg PO BID #60 tabs 11/23/24 02/10/25 Rx (Keppra) levothyroxine 50 mcg tablet 50 mcg PO QAM #90 tabs 12/21/24 02/10/25 Rx allopurinol 100 mg tablet 100 mg PO QAM 12/28/24 02/10/25 History folic acid 1 mg tablet 1 mg PO DAILY #90 tabs 12/29/24 02/10/25 Rx calcium 600 mg (as 1 tab PO DAILY #90 tabs 01/22/25 02/10/25 Rx carbonate)-vitamin D3 10 mcg (400 unit) tablet pregabalin 100 mg capsule (Lyrica) 100 mg PO BID #180 caps 01/25/25 02/10/25 Rx warfarin 2 mg tablet 2 mg PO UD 02/10/25 02/10/25 History Past Med/Surg History Problem List (Updated 02/11/25 @ 08:59 by Sabrina Griffin PA-C) Left ankle sprain Fall (Acute) Head injury (Acute) Back pain (Acute) Ambulatory dysfunction (Acute) Ankle fracture, lateral malleolus, closed (Acute) Avulsion fracture of ankle Melena Vertebral osteomyelitis Discitis Anemia Lumbar back pain Hyperkalemia Grade 3 ankle sprain Stenosis of left internal carotid artery TIA (transient ischemic attack) Vitamin B12 deficiency 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 Carotid artery plaque Seizure-like activity Acquired stuttering Osteoporosis Chronic anemia Vitamin D deficiency Warfarin anticoagulation (Chronic) CKD (chronic kidney disease) stage 4, GFR 15-29 ml/min Effusion of knee joint right (Acute) Ambulatory dysfunction Paroxysmal SVT (supraventricular tachycardia) (Chronic) Chronic constipation (Chronic) RLS (restless legs syndrome) (Chronic) Chronic pain (Chronic) Hx of aortic valve replacement, mechanical H/O mitral valve replacement with mechanical valve Hypertension (Chronic) BIRDIE (obstructive sleep apnea) (Chronic) Dyslipidemia (Chronic) Hypothyroidism (Chronic) Medical History Anemia requiring transfusions Hx of gout On anticoagulant therapy Acid reflux Anemia Poor historian Hypertension followed by Dr. Ledesma Hyperlipidemia Open fracture of left distal radius (08/19/23) from a fall-saw orthopedics in the ED and was admitted to [facility] per ortho note History of CVA (cerebrovascular accident) ? year>"a long time ago" CKD (chronic kidney disease), stage III Surgical History History of colonoscopy History of appendectomy H/O carotid endarterectomy right History of tooth extraction History of tonsillectomy History of cardiac cath no stents placed ? details History of heart valve repair 1986 S/P ORIF (open reduction internal fixation) fracture Lt distal radius 08/23/23 Dr. Oscar Jones S/P total abdominal hysterectomy History of cholecystectomy H/O oophorectomy S/P repair of paraesophageal hernia History of total right hip replacement S/P lumbar fusion H/O hemorrhoidectomy Family History Father Heart disease Mother Stroke Other No family history of adverse response to anesthesia Social History Smoking Status: Never smoker Second Hand Exposure: No; Do You Dip or Chew Tobacco: No; Hx Alcohol Use: No Hx Substance Use: No Preferred Language: [place]i Communication Ability: Effective Visual Impairment: No Limitations Hearing Ability: Hard of Hearing Lumber Scaler Required: No Beliefs That Will Affect Care: None marital status: Current Living Situation: Spouse Current Living Situation Comment: Trailer current occupational status: retired How many Children do You have: 2 Other Information That Helps Us Care for You: No Feels Safe at Home: Yes Childhood Exposure to Second-Hand Smoke: No Diet: regular Diet Comment: regular caffeine: No Dental Care, Regularly: No Physical Activity Frequency: Does not Exercise Seatbelt Use: always Sunscreen Use: No Assistive Devices: Cane and Walker Review of Systems Review of Systems: All systems reviewed & are unremarkable except as noted in Subjective Physical Exam Physical Exam: General: NAD, VS as above Resp: normal respiratory effort, lungs clear to auscultation CV: RRR, no murmur, Abd: normal bowel sounds, non tender, no hepatosplenomegaly Extremities: Moves all extremities, left foot splint in place, able to wiggle toes Neuro: A&O x3, Skin: intact, no lesions noted Results & Data Results & Data Vital Signs (Past 12 Hours) Vital Signs Temp Pulse Pulse Resp BP BP Pulse Ox 02/10/25 13:00 56 L 14 122/56 L 97 02/10/25 11:07 54 L 14 128/56 L 96 02/10/25 09:20 97.9 F 60 18 121/56 L 98 O2 Del Method 02/10/25 13:00 Room Air 02/10/25 11:07 Room Air 02/10/25 09:20 Room Air Laboratory Results cbc and chemistry reviewed Diagnostic Findings head ct ankle x-ray CT T-spine and L-spine reviewed Supervising Physician Co-Signing Physician Notes Attending Attestation and Admit Note: Pt seen/examined, chart reviewed, admit care plan d/w JOSE Galindo. I agree w/ the cole components of her admission documentation. 74yo female with h/o TIA, seizure like activity, mechanical mitral and aortic valves on coumadin, discitis/osteomyelitis, and CKD who presented after a fall. She was having lateral ankle pain on the left following this fall. Upon ER presentation left ankle x-rays showed a lateral malleolar avulsion fracture. In the ER splint was applied to the left ankle/leg. PMH/PSH/allergies/meds/sochx - reviewed VSS gen - resting comfortably in bed, NAD, awake/alert mouth - MMM neck - no JVD heart - RRR, s1 s2, mechanical valve closure sound heard all over chest, no murmur lungs - CTA b/l abd - soft NT ext - left leg/ankle in splint, right leg without abnormalities or edema, pulses R foot 2+ imaging reviewed labs reviewed 25-OH vit D level 38 in October 2024 A/P: 1. left ankle, lateral malleolar avulsion fracture -ortho consult -suspect she will be WBAT -pain control -PT/OT consults 2. mechanical MV & AV - INR 2.2 today -daily INR while here -cont coumadin -goal range 2.5 to 3.5 Cristhian Humphrey MD PG Care Time/CCT Total # of Minutes Spent Total Time Spent with Patient: Total time spent is greater than 50% in coordination of care (as documented) at patient's floor/unit and/or counseling patient: Coding Level of Care Code 72683 INT INP/OBS CARE 3/75MIN Diagnoses Avulsion fracture of ankle S82.899A Vertebral osteomyelitis M46.20 H/O mitral valve replacement with mechanical valve Z95.2 Hx of aortic valve replacement, mechanical Z95.2 Hypertension I10 Hypertension type: unspecified (5) Hypertension Hypertension type: unspecified Qualified Code(s): I10 - Essential (primary) hypertension
[2025-02-10] MEDS: WARFARIN SOD 2 MG TAB PO STA (16:34)
[2025-02-10] MEDS ORDERED: POLYETHYLENE (MIRALAX) 17 GM PACK PO PRN (17:10)
[2025-02-10] MEDS: PREGABALIN 100 MG CAP PO SCH (20:53)
[2025-02-10] MEDS: levETIRAcetam 250 MG TAB PO SCH (20:54)
[2025-02-10] MEDS: ATORVASTATIN 40 MG TAB PO SCH (20:54)
[2025-02-10] MEDS: levETIRAcetam 500 MG TAB PO SCH (20:54)
[2025-02-10] MEDS: PRAMIPEXOLE DIHYDROCHLO 0.25 MG TAB PO SCH (20:55)
[2025-02-10] MEDS: REMOVE LIDODERM PATCH SCH (20:56)
[2025-02-11] MEDS: LEVOTHYROXINE SODIUM 50 MCG TABLET PO SCH (08:29)
[2025-02-11] MEDS: CITALOPRAM 20 MG TAB PO SCH (08:29)
[2025-02-11] MEDS: FOLIC ACID 1 MG TAB PO SCH (08:30)
[2025-02-11] MEDS: ASPIRIN 81 MG ECTAB PO SCH (08:30)
[2025-02-11] MEDS: CALCIUM 600MG + VIT D 400 IU TAB PO SCH (08:30)
[2025-02-11] MEDS: ISOSORBIDE MONO EXTENDED REL 30 MG TABCR PO SCH (08:30)
[2025-02-11] MEDS: METOPROLOL SUCC 25MG EXT REL TAB PO SCH (08:32)
[2025-02-11] MEDS: LIDOCAINE 5% 1 PATCH TD SCH (08:39)
--- NOTE | 2025-02-11 09:01 | Orthopedic Consultation ---
Date of Service February 11, 2025 Assessment & Plan (1) Left ankle sprain: * Case/imaging reviewed and discussed with Dr Fuentes * Recommend cam boot for ambulation * Disposition: home, stable for discharge from orthopedic standpoint * Daily treatment: Physical Therapy/ Occupational Therapy per protocol * Weight bearing status: as tolerated in fracture boot * Pain control * Remainder care per primary team * May remove boot for daily hygiene and ankle ROM should otherwise wear for all weight bearing activity. Follow-up with orthopedics in 1 month. History of Present Illness Reason for Consultation: Left ankle fracture Requesting Physician: . Attending Physician: Cristhian Humphrey MD . Patient is a 74 y/o female with left ankle injury after a fall 2 days ago. PMH including hypothyroidism, BIRDIE, HTN, CKD stage IV, osteoporosis, and TIA . Presents to hospital with left ankle pain and difficulty ambulating after a fall two days ago. Current workup including x-rays of left ankle and CT of head due to hitting her head when she fell and CT of cervical, thoracic and lumbar spine. Orthopedics consulted for management recommendations. At time of exam patient was in splint placed in ED laying in bed without pain. Pt notes her pain was along the lateral aspect of her ankle after she fell. Allergies Allergy/AdvReac Type Severity Reaction Status Date / Time doxycycline Allergy Unknown CAN'T Verified 01/25/25 14:12 REMEMBER sulfamethoxazole Allergy Unknown CAN'T Verified 01/25/25 14:12 REMEMBER trimethoprim Allergy Unknown CAN'T Verified 01/25/25 14:12 REMEMBER Home Medications Medication Instructions Recorded Confirmed Type atorvastatin 40 mg tablet 40 mg PO HS 07/19/23 02/10/25 History citalopram 20 mg tablet 20 mg PO QAM #90 tabs 03/10/24 02/10/25 Rx aspirin 81 mg tablet,delayed 81 mg PO QAM 06/18/24 02/10/25 History release isosorbide mononitrate 30 mg 30 mg PO QAM #90 tabs 07/22/24 02/10/25 Rx tablet,extended release 24 hr cyanocobalamin (vitamin B-12) 1,000 mcg IM MONTHLY PRN B12 07/26/24 02/10/25 History 1,000 mcg/mL injection solution Deficiency lidocaine 5 % topical patch 1 patch transdermal QAM #30 ea 08/21/24 02/10/25 Rx metoprolol succinate 25 mg 12.5 mg (1/2 x 25 mg) PO QAM #30 08/21/24 02/10/25 Rx tablet,extended release 24 hr tabs pantoprazole 40 mg tablet,delayed 40 mg PO BID #60 tabs 08/21/24 02/10/25 Rx release pramipexole 0.125 mg tablet 0.125 mg PO QPM #90 tabs 10/22/24 02/10/25 Rx acetaminophen 500 mg tablet 1,000 mg PO Q8H PRN pain 11/12/24 02/10/25 History (Tylenol Extra Strength) tramadol 50 mg tablet 50 mg PO Q4H PRN pain #20 tabs 11/16/24 02/10/25 Rx levetiracetam 250 mg tablet 250 mg PO QPM 30 days #30 tabs 11/23/24 02/10/25 Rx (Keppra) levetiracetam 500 mg tablet 500 mg PO BID #60 tabs 11/23/24 02/10/25 Rx (Keppra) levothyroxine 50 mcg tablet 50 mcg PO QAM #90 tabs 12/21/24 02/10/25 Rx allopurinol 100 mg tablet 100 mg PO QAM 12/28/24 02/10/25 History folic acid 1 mg tablet 1 mg PO DAILY #90 tabs 12/29/24 02/10/25 Rx calcium 600 mg (as 1 tab PO DAILY #90 tabs 01/22/25 02/10/25 Rx carbonate)-vitamin D3 10 mcg (400 unit) tablet pregabalin 100 mg capsule (Lyrica) 100 mg PO BID #180 caps 01/25/25 02/10/25 Rx warfarin 2 mg tablet 2 mg PO UD 02/10/25 02/10/25 History Past Med/Surg History Problem List (Updated 02/11/25 @ 08:59 by Sabrina Griffin PA-C) Left ankle sprain Fall (Acute) Head injury (Acute) Back pain (Acute) Ambulatory dysfunction (Acute) Ankle fracture, lateral malleolus, closed (Acute) Avulsion fracture of ankle Melena Vertebral osteomyelitis Discitis Anemia Lumbar back pain Hyperkalemia Grade 3 ankle sprain Stenosis of left internal carotid artery TIA (transient ischemic attack) Vitamin B12 deficiency 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 Carotid artery plaque Seizure-like activity Acquired stuttering Osteoporosis Chronic anemia Vitamin D deficiency Warfarin anticoagulation (Chronic) CKD (chronic kidney disease) stage 4, GFR 15-29 ml/min Effusion of knee joint right (Acute) Ambulatory dysfunction Paroxysmal SVT (supraventricular tachycardia) (Chronic) Chronic constipation (Chronic) RLS (restless legs syndrome) (Chronic) Chronic pain (Chronic) Hx of aortic valve replacement, mechanical H/O mitral valve replacement with mechanical valve Hypertension (Chronic) BIRDIE (obstructive sleep apnea) (Chronic) Dyslipidemia (Chronic) Hypothyroidism (Chronic) Medical History Anemia requiring transfusions Hx of gout On anticoagulant therapy Acid reflux Anemia Poor historian Hypertension followed by Dr. Ledesma Hyperlipidemia Open fracture of left distal radius (08/19/23) from a fall-saw orthopedics in the ED and was admitted to [facility] per ortho note History of CVA (cerebrovascular accident) ? year>"a long time ago" CKD (chronic kidney disease), stage III Surgical History History of colonoscopy History of appendectomy H/O carotid endarterectomy right History of tooth extraction History of tonsillectomy History of cardiac cath no stents placed ? details History of heart valve repair 1986 S/P ORIF (open reduction internal fixation) fracture Lt distal radius 08/23/23 Dr. Oscar Jones S/P total abdominal hysterectomy History of cholecystectomy H/O oophorectomy S/P repair of paraesophageal hernia History of total right hip replacement S/P lumbar fusion H/O hemorrhoidectomy Family History Father Heart disease Mother Stroke Other No family history of adverse response to anesthesia Social History Smoking Status: Never smoker Second Hand Exposure: No; Do You Dip or Chew Tobacco: No; Hx Alcohol Use: No Hx Substance Use: No Preferred Language: Faroese Communication Ability: Effective Visual Impairment: No Limitations Hearing Ability: Hard of Hearing Clinical Business Analyst Required: No Beliefs That Will Affect Care: None marital status: Current Living Situation: Spouse Current Living Situation Comment: [facility] current occupational status: retired How many Children do You have: 2 Other Information That Helps Us Care for You: No Feels Safe at Home: Yes Childhood Exposure to Second-Hand Smoke: No Diet: regular Diet Comment: regular caffeine: No Dental Care, Regularly: No Physical Activity Frequency: Does not Exercise Seatbelt Use: always Sunscreen Use: No Assistive Devices: Walker Review of Systems All systems reviewed & are unremarkable except as noted in HPI & below. Physical Exam . * General: Alert and oriented, no acute distress * Constitutional: well-developed, well-nourished. * Respiratory: Normal respiratory effort, no distress * Gastrointestinal: No tenderness to palpation, no rigidity or guarding. * Skin: No rash or lesion. * Neurologic: Grossly normal * Musculoskeletal: Left ankle with intact stirrup orthoglass splint. Neurovascularly intact. Pt is able to move toes without difficulty or pain. Splint was removed and ankle inspected. Lateral aspect of ankle with some mild tenderness, no swelling, erythema or ecchymosis is noted. Results & Data Results & Data Laboratory Results . Laboratory Results - last 24 hr 02/10/25 11:43 WBC 6.98 RBC 2.91 L Hgb 9.3 L Hct 28.4 L MCV 97.6 MCH 32.0 MCHC 32.7 RDW Std Deviation 53.9 H RDW Coeff of Gisele 15.2 H Plt Count 130 MPV 11.7 Immature Gran % (Auto) 0.3 Neut % (Auto) 70.5 Lymph % (Auto) 14.0 Hartley % (Auto) 10.3 Eos % (Auto) 4.6 Baso % (Auto) 0.3 Neut # (Auto) 4.92 Lymph # (Auto) 0.98 L Hartley # (Auto) 0.72 H Eos # (Auto) 0.32 Baso # (Auto) 0.02 Immature Gran # (Auto) 0.02 PT 22.7 H INR 2.2 H Sodium 140 Potassium 4.6 Chloride 109 H Carbon Dioxide 27 Anion Gap 4 BUN 30 H Creatinine 2.13 H Est Cr Clr Drug Dosing 19.9 eGFR 23.86 BUN/Creatinine Ratio 14.1 Glucose 70 Lactate 0.8 Calcium 9.4 Total Bilirubin 1.0 AST 17 ALT 6 L Alkaline Phosphatase 96 Total Protein 6.8 Albumin 3.8 Globulin 3.0 Albumin/Globulin Ratio 1.3 Procalcitonin 0.04 Diagnostic Findings Ankle X-Ray 02/10/25 09:47 XR ankle LT min 3V routine HISTORY: 74 years-old Female ankle pain acute pain of the left ankle COMPARISON: 07/06/2024 TECHNIQUE: 3 views of the left ankle FINDINGS: 3 mm bone fragment noted adjacent to the malleolus, not seen on prior, however there was no true AP projection on the previous study. Moderate anterolateral predominant soft tissue swelling. Arterial calcifications are noted. De mineralized appearance of the bones with mild osteoarthritis. No dislocation or other acute osseous abnormality identified. Mild spurring of the calcaneus. IMPRESSION: Soft tissue swelling with 3 mm bone fragment adjacent to the lateral malleolus suggestive of an age-indeterminate avulsion fracture, likely new compared to the 07/06/2024 study. ACT 112: Negative or not required by law. The above report was generated using voice recognition software. It may contain grammatical, syntax or spelling errors. Electronically signed by: Donovan Clinton M.D. 02/10/2025 10:[address] 02/10/25 09:47 CT cervical spine wo con CLINICAL HISTORY: 74 years-old Female with fall. Acute neck injury status post fall COMPARISON: CTA neck 05/14/2024 TECHNIQUE: Multiple axial CT images of the cervical spine were obtained without contrast. A dose lowering technique was utilized adhering to the principles of ALARA. FINDINGS: Demineralized appearance of the bones. Discectomy at C5-C6. Multilevel degenerative changes include moderate disc space narrowing at C3-C4 along with moderate to severe multilevel facet arthrosis. Predental interval measures 3.3 mm, unchanged. No acute fracture or subluxation. Cervical levoscoliosis. Developmental incomplete bony fusion across the posterior arch of C1. Multilevel neural foraminal narrowing. Atherosclerosis of the carotid bulbs. The cervical soft tissues appear unremarkable. The visualized lung apices appear clear. IMPRESSION: No acute fracture or subluxation. ACT 112: Negative or not required by law. The above report was generated using voice recognition software. It may contain grammatical, syntax or spelling errors. Electronically signed by: Donovan Clinton M.D. 02/10/2025 11:[address] 02/10/25 09:47 CT SCAN OF THE BRAIN WITHOUT IV CONTRAST CLINICAL HISTORY: Fall. COMPARISON STUDY: CT of the brain dated 08/16/2024 TECHNIQUE: Unenhanced axial CT scan of the brain is performed from the vertex to the skull base. Images are reviewed in the axial, sagittal, coronal planes. A dose lowering technique was utilized adhering to the principles of ALARA. FINDINGS: Brain parenchyma: There is age-related involutional change noting moderate subcortical and periventricular microangiopathic disease. There is no hemorrhage , mass effect, or evidence of acute territorial ischemia by CT criteria. Chronic lacunar infarcts are noted in the left thalamus and the left cerebellar hemisphere. Sepulveda-white matter differentiation is preserved. No extra-axial fluid collection is seen. Ventricles, sulci, cisterns: Prominent secondary to involutional change. Intracranial vasculature: There is atherosclerotic calcification of the cavernous carotid arteries. Calvarium: Unremarkable. Sinuses and mastoids: There is trace mucosal thickening in the right maxillary antrum. The visualized paranasal sinuses are otherwise clear. There is trace right mastoid effusion. The left mastoid air cells are well pneumatized. Orbits: The bony orbits are grossly intact. IMPRESSION: There is no hemorrhage, mass effect, or evidence of acute territorial ischemia by CT criteria. ACT 112: Negative or not required by law. Electronically signed by: Amaury Mcgovern M.D. 02/10/2025 11:[address] 02/10/25 10:44 CT lumbar spine wo con HISTORY: 74 years-old Female back pain acute low back pain COMPARISON: MRI lumbar spine 08/17/2024 TECHNIQUE: Multiple axial CT images of the lumbar spine were obtained without IV contrast. FINDINGS: Partially imaged severe intervertebral disc space narrowing with endplate irregularity at T12-L1 appears similar to the prior MR study. No progressive or new sites of osseous erosion. No paravertebral edema, epidural or paraspinal fluid collections identified on this exam. Cortical thinning of the kidneys. Tiny subcentimeter probable complex and simple cysts of the left kidney. Atherosclerosis of the aorta. Surgical clips within the retroperitoneum. L4-L5 and L5-S1 discectomy. Demineralized appearance of the bones without acute fracture or subluxation. Suboptimal evaluation of the central canal and neural foramen by CT technique. L2-L3: Mild central canal stenosis with patent neural foramen. L3-L4: Moderate central canal stenosis with mild bilateral neural foraminal narrowing secondary to spondylitic spurring with posterior annular disc bulge, ligamentum flavum thickening with moderate facet arthrosis. IMPRESSION: 1. No acute fracture or subluxation. 2. Partially imaged severe intervertebral disc space narrowing with endplate irregularity at T12-L1 appears similar to the prior MRI study from 08/17/2024. No new or progressive endplate erosions are identified by CT. 3. No paravertebral edema, epidural or paravertebral fluid collections. 4. Degenerative and postoperative changes as above. ACT 112: Negative or not required by law. The above report was generated using voice recognition software. It may contain grammatical, syntax or spelling errors. Electronically signed by: Donovan Clinton M.D. 02/10/2025 11:[address] 02/10/25 10:44 CT OF THE THORACIC SPINE CLINICAL HISTORY: Back pain, history infection. COMPARISON STUDY: Thoracic spine MRI August 17, 2024. Chest CT December 12, 2015. TECHNIQUE: Helical axial images of the thoracic spine were obtained. Sagittal and coronal reconstructions were viewed. Automated exposure control was utiliz ed for the study. A dose lowering technique was utilized adhering to the principles of ALARA. FINDINGS: Moderate thoracic spine dextroscoliosis is unchanged. Vertebral body heights within the thoracic spine are maintained. There are no fractures within the thoracic spine. There are no suspicious osseous lesions within the thoracic spine. Severe disc space narrowing at the T12-L1 level is noted. There is associated endplate irregularity, sclerosis and osteophytosis. These findings suggest sequela of discitis/osteomyelitis which was shown on MRI of August 17, 2024. Minimal paravertebral stranding is present. Central canal is suboptimally assessed by CT. No definite acute process within the thoracic spine is identified by CT. Otherwise, there is mild multilevel disc space narrowing and endplate osteophyte ptosis. Vacuum disc phenomenon is noted at several levels. There is moderate facet arthrosis at multiple levels within the thoracic spine. IMPRESSION: 1. No acute thoracic spine fracture or subluxation. 2. Severe disc space narrowing at T12-L1 with associated endplate irregularity, sclerosis and osteophytosis. The findings suggest the sequela of discitis/osteomyelitis shown on MRI of August 17, 2024. No definite acute process by CT. 3. No change in thoracic spine dextroscoliosis. 4. Mild degenerative disc disease and moderate facet arthrosis within the thoracic spine. Suboptimal evaluation of the central canal and neural foramen given CT technique. ACT 112: Negative or not required by law. Electronically signed by: Angel Munson M.D. 02/10/2025 11:37 AM . I viewed left ankle x-ray my interpretation reveals questionable new avulsion fracture tip of lateral malleolus with overlying soft tissue swelling. PG Care Time/CCT Total # of Minutes Spent Total Time Spent with Patient: Total time spent is greater than 50% in coordination of care (as documented) at patient's floor/unit and/or counseling patient: Coding Level of Care Code 74155 IN/OBS CONSULT LVL 3,45M Diagnoses Left ankle sprain S93.402A
--- NOTE | 2025-02-11 11:24 | Hospitalist Progress Note ---
"Date of Service February 11, 2025 Assessment & Plan (1) Avulsion fracture of ankle: (2) Vertebral osteomyelitis: (3) H/O mitral valve replacement with mechanical valve: (4) Hx of aortic valve replacement, mechanical: (5) Hypertension: Plan Magda is a 74 year old female with a PMH of TIA, seizure like activity, hx of mechanical mitral and aortic valve (on coumadin), and CKD who presents after a fall. xray with avulsion fracture, difficulty ambulating with walker, admitted for PT/OT evals. #Fall | Avulsion fracture - ankle x-ray showing 3 mm bone fragment adjacent to lateral malleolus suggestive of avulsion fracture. Ortho consulted - rec cam boot, outpatient follow up in 2 weeks for repeat xray Check orthostatic VS PT/OT - awaiting for boot to be delivered #Mechanical Valve - seen in the anticoagulation condition and day of admission, INR goal 2.5-3.5 Continue Coumadin Check INR q3D #hx of discitis/osteomyelitis - Admission for such in August, seen by ID, completed 6 weeks of cefazolin and then lifelong PO antibiotics (have not been started) Blood cultures / CT L&T spine ordered by ED per anticoagulation clinic. No acute findings - sequela of osteomyelitis Blood cultures pending Start cefadroxil 500mg q24 hours will need local ID follow up no infectious symptoms on admission, no WBC #Hx of TIA Continue ASA, Statin #HTN Continue Imdur, Metoprolol #Seizure like activity Continue Keppra #Hypothyroid Continue Synthroid #Mental Health Continue Celexa #GERD Continue PPI Dispo: obs to med/surg, pending PT - pt hopeful to not have to go to rehab DVT proh: home coumadin F/u on discharge: ortho, ID Admission and Anticipated Discharge Date Admission Date: February 10, 2025 Supervising Physician Co-Signing Physician Notes Attending Attestation - Chart reviewed, care plan d/w JOSE Galindo. I agree w/ the cole components of her documentation. Appreciate ortho assistance and recs. Cristhian Humphrey MD Subjective Patient seen lying in bed, knows that she is getting a boot delivered pain well controlled, no acute complaints Review of Systems Review of Systems: All systems reviewed & are unremarkable except as noted in Subjective Physical Exam Physical Exam: General: NAD, VS as above Resp: normal respiratory effort, lungs clear to auscultation CV: RRR, no murmur, Abd: normal bowel sounds, non tender, no hepatosplenomegaly Extremities: Moves all extremities, left foot splint in place, able to wiggle toes Neuro: A&O x3, Skin: intact, no lesions noted Results & Data Results & Data Vital Signs (Past 12 Hours) Vital Signs Temp Pulse Resp BP Pulse Ox O2 Del Method 02/11/25 08:25 58 L 120/65 02/11/25 07:34 98.2 F 54 L 16 121/63 97 Room Air PG Care Time/CCT Total # of Minutes Spent Total Time Spent with Patient: Total time spent is greater than 50% in coordination of care (as documented) at patient's floor/unit and/or counseling patient: Coding Level of Care Code 16405 SUB INP/OBS CARE 2/35MIN Diagnoses Avulsion fracture of ankle S82.899A Vertebral osteomyelitis M46.20 H/O mitral valve replacement with mechanical valve Z95.2 Hx of aortic valve replacement, mechanical Z95.2 Hypertension I10 Hypertension type: unspecified (5) Hypertension Hypertension type: unspecified Qualified Code(s): I10 - Essential (primary) hypertension"
[2025-02-11] MEDS: WARFARIN SOD 2 MG TAB PO SCH (15:30)
[2025-02-12 07:52] LABS: INR 2.1 (0.9-1.1); Prothrombin Time 21.4 Seconds (9.0-12.0)
[2025-02-12] MEDS: SODIUM CHLORIDE 0.9% 1,000 ML IV SCH (15:59)
--- NOTE | 2025-02-12 18:09 | Hospitalist Progress Note ---
"Date of Service February 12, 2025 Assessment & Plan (1) Avulsion fracture of ankle: (2) Vertebral osteomyelitis: (3) H/O mitral valve replacement with mechanical valve: (4) Hx of aortic valve replacement, mechanical: (5) Hypertension: Plan Magda is a 74 year old female with a PMH of TIA, seizure like activity, hx of mechanical mitral and aortic valve (on coumadin), and CKD who presents after a fall. X-ray with avulsion fracture, difficulty ambulating with walker, admitted for PT/OT evals. PT/OT continue to recommend rehab at this time. She is ambulating with the cam boot on her left foot. #Fall | Avulsion fracture - ankle x-ray showing 3 mm bone fragment adjacent to lateral malleolus suggestive of avulsion fracture. - Ortho consulted - rec cam boot, outpatient follow up in 2 weeks for repeat xray - Orthostatic VS negative - PT/OT continue to recommend rehab placement. Insurance authorization is pending for rehab, will likely not have an answer through the weekend especially given holiday weekend. Will continue to monitor how she progresses with therapy #Mechanical Valve - seen in the anticoagulation condition and day of admission, INR goal 2.5-3.5 - Continue Coumadin - Check INR q3D #Hx of discitis/osteomyelitis - Admission for such in August, seen by ID, completed 6 weeks of cefazolin and then lifelong PO antibiotics (have not been started) - Blood cultures / CT L&T spine ordered by ED per anticoagulation clinic. No acute findings - sequela of osteomyelitis - Blood cultures negative >48 hours - Start cefadroxil 500mg q24 hours, continue on discharge - Will need local ID follow up #HTN - Continue Metoprolol - Imdur held 02/12 given hypotension (asymptomatic) - Will give 1 L NSS at 100 cc/hr #Hx of TIA - Continue ASA, Statin #Seizure like activity - Continue Keppra #Hypothyroid - Continue Synthroid #Mental Health - Continue Celexa #GERD - Continue PPI VTE PPx: Coumadin Dispo: Therapy continuing to recommend rehab at this time. Insurance authorization is pending for rehab, likely will not have determination through the weekend especially given holiday weekend. Will continue to monitor how she does with therapy to determine if rehab is still necessary on discharge or if she could return home. F/u on discharge: ortho, ID Held Imdur Ordered IV fluids Discussed discharge planning with case management Admission and Anticipated Discharge Date Admission Date: February 12, 2025 Supervising Physician Co-Signing Physician Notes Attending Attestation - Chart reviewed, care plan d/w JOSE Modi. I agree w/ the cole components of her documentation. Cristhian Humphrey MD Subjective Patient seen and evaluated at bedside. She reports pain in her left foot but notes that this is tolerable with pain medication. She has been ambulating okay with the cam boot. We discussed that at this time, therapy is still recommending rehab. However this recommendation may change management consultant the weekend if she continues to progress with therapy she may be able to return home on discharge. She is understanding of this plan wall her insurance authorization is pending for rehab. No additional complaints or concerns at this time. Physical Exam Physical Exam: General: No acute distress, nondiaphoretic, well-developed, well-nourished. Skin: Warm, dry. No rashes or peripheral edema noted. Cardiac: Regular rate and rhythm without murmurs gallops or rubs. Pulm: Clear to auscultation bilaterally without wheezes, rales or rhonchi. Normal respiratory effort. 95% on room air. Abdominal: Soft, nontender, nondistended. Bowel sounds present. Neuro: A&O x3. No focal neurological deficits. Extremities: Left foot in Cam boot. Results & Data Results & Data Vital Signs (Past 12 Hours) Vital Signs Temp Pulse Resp BP Pulse Ox O2 Del Method 02/12/25 15:35 87/51 L 02/12/25 15:01 98.4 F 73 18 88/44 L 95 Room Air 02/12/25 07:42 98.1 F 63 20 108/63 94 Room Air Laboratory Results Reviewed PT/INR PG Care Time/CCT Total # of Minutes Spent Total Time Spent with Patient: Total time spent is greater than 50% in coordination of care (as documented) at patient's floor/unit and/or counseling patient: Coding Level of Care Code 74171 SUB INP/OBS CARE 3/50MIN Diagnoses Avulsion fracture of ankle S82.899A Vertebral osteomyelitis M46.20 H/O mitral valve replacement with mechanical valve Z95.2 Hx of aortic valve replacement, mechanical Z95.2 Hypertension I10 Hypertension type: unspecified (5) Hypertension Hypertension type: unspecified Qualified Code(s): I10 - Essential (primary) hypertension"
--- NOTE | 2025-02-13 10:49 | Hospitalist Progress Note ---
"Date of Service February 13, 2025 Assessment & Plan (1) Avulsion fracture of ankle: (2) Vertebral osteomyelitis: (3) H/O mitral valve replacement with mechanical valve: (4) Hx of aortic valve replacement, mechanical: (5) Hypertension: Plan Magda is a 74 year old female with a PMH of TIA, seizure like activity, hx of mechanical mitral and aortic valve (on coumadin), and CKD who presents after a fall. X-ray with avulsion fracture, difficulty ambulating with walker, admitted for PT/OT evals. PT/OT continue to recommend rehab at this time. She is ambulating with the cam boot on her left foot. #Fall | Avulsion fracture - ankle x-ray showing 3 mm bone fragment adjacent to lateral malleolus suggestive of avulsion fracture. - Ortho consulted - rec cam boot, outpatient follow up in 2 weeks for repeat xray - Orthostatic VS negative - PT/OT continue to recommend rehab placement. Insurance authorization is pending for rehab, will likely not have an answer through the weekend especially given holiday weekend. Will continue to monitor how she progresses with therapy #Mechanical Valve - seen in the anticoagulation condition and day of admission, INR goal 2.5-3.5 - Continue Coumadin - Check INR q3D #Hx of discitis/osteomyelitis - Admission for such in August, seen by ID, completed 6 weeks of cefazolin and then lifelong PO antibiotics (have not been started) - Blood cultures / CT L&T spine ordered by ED per anticoagulation clinic. No acute findings - sequela of osteomyelitis - Blood cultures negative >48 hours - Start cefadroxil 500mg q24 hours, continue on discharge - Will need local ID follow up #HTN - Continue Metoprolol - Imdur placed on HOLD 02/12 given hypotension (asymptomatic) - s/p 1 L NSS 02/12. BP remains soft, continue to hold and monitor #Hx of TIA - Continue ASA, Statin #Seizure like activity - Continue Keppra #Hypothyroid - Continue Synthroid #Mental Health - Continue Celexa #GERD - Continue PPI VTE PPx: Coumadin Dispo: Therapy continuing to recommend rehab at this time. Insurance authoriza tion is pending for rehab, likely will not have determination through the weekend especially given holiday weekend. Will continue to monitor how she does with therapy to determine if rehab is still necessary on discharge or if she could return home. F/u on discharge: ortho, ID Admission and Anticipated Discharge Date Admission Date: February 12, 2025 Supervising Physician Co-Signing Physician Notes Attending Attestation - Chart reviewed, care plan d/w JOSE Modi. I agree w/ the cole components of her documentation. Cristhian Humphrey MD Subjective Patient seen and evaluated in bedside chair. She reports intermittent pain in her left ankle. She is compliant with her cam boot. She reports sleeping well overnight and well tolerating her diet. Continuing to wait for insurance authorization for rehab, likely no determination over the weekend. No additional complaints or concerns at this time. Physical Exam Physical Exam: General: No acute distress, nondiaphoretic, well-developed, well-nourished. Cardiac: Well-perfused. Rate in 60s. Pulm: Normal respiratory effort. 92% on room air. Neuro: A&O x3. No focal neurological deficits. Extremities: Left foot in Cam boot. Results & Data Results & Data Vital Signs (Past 12 Hours) Vital Signs Temp Pulse Resp BP Pulse Ox O2 Del Method 02/13/25 07:24 98.8 F 65 20 104/46 L 92 Room Air 02/12/25 23:20 97.9 F 65 14 103/51 L 92 Room Air PG Care Time/CCT Total # of Minutes Spent Total Time Spent with Patient: Total time spent is greater than 50% in coordination of care (as documented) at patient's floor/unit and/or counseling patient: Coding Level of Care Code 44768 SUB INP/OBS CARE 2/35MIN Diagnoses Avulsion fracture of ankle S82.899A Vertebral osteomyelitis M46.20 H/O mitral valve replacement with mechanical valve Z95.2 Hx of aortic valve replacement, mechanical Z95.2 Hypertension I10 Hypertension type: unspecified (5) Hypertension Hypertension type: unspecified Qualified Code(s): I10 - Essential (primary) hypertension"
[2025-02-13] MEDS ORDERED: ONDANSETRON INJ 2 MG/ML 2 ML VIAL IV PRN (23:37)
--- NOTE | 2025-02-14 10:41 | Hospitalist Progress Note ---
"Date of Service February 14, 2025 Assessment & Plan (1) Avulsion fracture of ankle: (2) Vertebral osteomyelitis: (3) H/O mitral valve replacement with mechanical valve: (4) Hx of aortic valve replacement, mechanical: (5) Hypertension: Plan Magda is a 74 year old female with a PMH of TIA, seizure like activity, hx of mechanical mitral and aortic valve (on coumadin), and CKD who presents after a fall. X-ray with avulsion fracture, difficulty ambulating with walker, admitted for PT/OT evals. PT/OT continue to recommend rehab at this time. She is ambulating with the cam boot on her left foot. #Fall | Avulsion fracture - ankle x-ray showing 3 mm bone fragment adjacent to lateral malleolus suggestive of avulsion fracture. - Ortho consulted - rec cam boot, outpatient follow up in 2 weeks for repeat xray - Orthostatic VS negative - PT/OT continue to recommend rehab placement. Insurance authorization is pending for rehab, will likely not have an answer through the weekend especially given holiday weekend. Will continue to monitor how she progresses with therapy #Constipation - last documented BM in EMR on 02/09 - Bowel regimen: scheduled MiraLAX daily, Senokot-S 2 tabs HS, Dulcolax 5 mg HS PRN, milk of mag Q6H PRN - Abdomen is soft, nontender, nondistended & has strong bowel sounds #Mechanical Valve - seen in the anticoagulation condition and day of admission, INR goal 2.5-3.5 - Continue Coumadin - Check INR q3D #Hx of discitis/osteomyelitis - Admission for such in August, seen by ID, completed 6 weeks of cefazolin and then lifelong PO antibiotics (have not been started) - Blood cultures / CT L&T spine ordered by ED per anticoagulation clinic. No acute findings - sequela of osteomyelitis - Blood cultures negative >48 hours - Start cefadroxil 500mg q24 hours, continue on discharge - Will need local ID follow up #HTN - Continue Metoprolol - Imdur placed on HOLD 02/12 given hypotension (asymptomatic) - s/p 1 L NSS 02/12. BP remains soft, continue to hold and monitor #Hx of TIA - Continue ASA, Statin #Seizure like activity - Continue Keppra #Hypothyroid - Continue Synthroid #Mental Health - Continue Celexa #GERD - Continue PPI VTE PPx: Coumadin Dispo: Therapy continuing to recommend rehab at this time. Insurance authorization is pending for rehab, likely will not have determination through the weekend especially given holiday weekend. Will continue to monitor how she does with therapy to determine if rehab is still necessary on discharge or if she could return home. F/u on discharge: ortho, ID Updated at bedside Started bowel regimen Admission and Anticipated Discharge Date Admission Date: February 12, 2025 Supervising Physician Co-Signing Physician Notes Attending Attestation - Chart reviewed, care plan d/w JOSE Modi. I agree w/ the cole components of her documentation. Check INR in am. Awaiting dispo. Cristhian Humphrey MD Subjective Patient seen and evaluated bedside. Still has ongoing intermittent pain in her left lower extremity. She remains compliant with her cam boot. She is understanding about the delay in rehab placement. She is well tolerating her diet. She did not sleep well overnight, noting waking up a few times throughout the night. She has not had a bowel movement in several days. Denies abdominal pain, nausea, vomiting. No acute complaints or concerns at this time. Physical Exam Physical Exam: General: No acute distress, nondiaphoretic, well-developed, well-nourished. Cardiac: Well-perfused. Rate in 60s. Pulm: Normal respiratory effort. 94% on room air. Abdominal: Soft, nontender, nondistended. Bowel sounds present. Neuro: A&O x3. No focal neurological deficits. Extremities: Left foot in Cam boot. Results & Data Results & Data Vital Signs (Past 12 Hours) Vital Signs Temp Pulse Resp BP Pulse Ox O2 Del Method 02/14/25 08:09 98.1 F 60 18 109/67 94 Room Air 02/13/25 23:05 99.3 F 81 18 148/71 H 94 Room Air PG Care Time/CCT Total # of Minutes Spent Total Time Spent with Patient: Total time spent is greater than 50% in coordination of care (as documented) at patient's floor/unit and/or counseling patient: Coding Level of Care Code 54947 SUB INP/OBS CARE 3/50MIN Diagnoses Avulsion fracture of ankle S82.899A Vertebral osteomyelitis M46.20 H/O mitral valve replacement with mechanical valve Z95.2 Hx of aortic valve replacement, mechanical Z95.2 Hypertension I10 Hypertension type: unspecified (5) Hypertension Hypertension type: unspecified Qualified Code(s): I10 - Essential (primary) hypertension"
[2025-02-14] MEDS ORDERED: MAGNESIUM HYDROXIDE SUSP 30 ML UDC PO PRN (11:04)
--- NOTE | 2025-02-14 12:01 | Electrocardiogram Report ---
Test Reason : Blood Pressure : */* mmHG Vent. Rate : 75 BPM Atrial Rate : 75 BPM P-R Int : 180 ms QRS Dur : 108 ms QT Int : 402 ms P-R-T Axes : 67 -25 121 degrees QTcB Int : 448 ms Normal sinus rhythm Left ventricular hypertrophy with repolarization abnormality Abnormal ECG When compared with ECG of 12-Aug-2024 16:20, T wave inversion less evident in Anterior leads Inverted T waves have replaced nonspecific T wave abnormality in Lateral leads Confirmed by Odilon Torres ([id number] on 02/14/2025 12:01:16 PM Referred By: REFERRED SELF Confirmed By: Odilon Torres
[2025-02-14] MEDS: POLYETHYLENE (MIRALAX) 17 GM PACK PO SCH (13:22)
[2025-02-14] MEDS: DOCUSATE SODIUM/SENNA 50/8.6MG TAB PO SCH (20:07)
[2025-02-15 08:05] LABS: Hematocrit (blood only) 26.6 % (37.0-47.0); Hemoglobin 8.7 g/dl (12.0-16.0); Mean Corpuscular Hemoglobin 31.3 pg (25.0-34.0); Mean Corpuscular Volume 95.7 fL (80.0-100.0); Platelet Count 139 K/uL (130-400); RDW Standard Deviation 51.8 fL (36.4-46.3); Red Blood Count 2.78 M/uL (4.20-5.40); White Blood Count 8.66 K/ul (4.8-10.8)
[2025-02-15 08:24] LABS: Anion Gap 4.0 (3-11); Blood Urea Nitrogen 54.0 mg/dl (6-23); Calcium 9.5 mg/dl (8.6-10.3); Carbon Dioxide 26.0 mmol/L (21-32); Chloride 105.0 mmol/L (98-107); Creatinine Clr Calc Pharmacy 16.4 ml/min; Glucose 85.0 mg/dl (70-99(Fasting)); Potassium 4.3 mmol/L (3.5-5.1); Sodium 135.0 mmol/L (136-145)
[2025-02-15 08:42] LABS: INR 2.2 (0.9-1.1); Prothrombin Time 22.1 Seconds (9.0-12.0)
[2025-02-15] MEDS: ACETAMINOPHEN 500 MG TAB PO PRN (09:54)
[2025-02-15] MEDS: DOCUSATE SODIUM/SENNA 50/8.6MG TAB PO SCH (12:04)
--- NOTE | 2025-02-15 18:26 | Hospitalist Progress Note ---
"Date of Service February 15, 2025 Assessment & Plan (1) Avulsion fracture of ankle: (2) Vertebral osteomyelitis: (3) H/O mitral valve replacement with mechanical valve: (4) Hx of aortic valve replacement, mechanical: (5) Hypertension: Plan Magda is a 74 year old female with a PMH of TIA, seizure like activity, hx of mechanical mitral and aortic valve (on coumadin), and CKD who presents after a fall. X-ray with avulsion fracture, difficulty ambulating with walker, admitted for PT/OT evals. PT/OT continue to recommend rehab at this time. She is ambulating with the cam boot on her left foot. #Fall | Avulsion fracture - ankle x-ray showing 3 mm bone fragment adjacent to lateral malleolus suggestive of avulsion fracture. - Ortho consulted - rec cam boot, outpatient follow up in 2 weeks for repeat xray - Orthostatic VS negative - PT/OT continue to recommend rehab placement. Insurance authorization is pending for rehab, will likely not have an answer through the weekend especially given holiday weekend. Will continue to monitor how she progresses with therapy #Constipation - last documented BM in EMR on 02/09 - Bowel regimen: scheduled MiraLAX daily, Senokot-S 2 tabs HS, Dulcolax 5 mg HS PRN, milk of mag Q6H PRN - Abdomen is soft, nontender, nondistended & has strong bowel sounds #Mechanical Valve - seen in the anticoagulation condition and day of admission, INR goal 2.5-3.5 - Continue Coumadin - Check INR q3D #Hx of discitis/osteomyelitis - Admission for such in August, seen by ID, completed 6 weeks of cefazolin and then lifelong PO antibiotics (have not been started) - Blood cultures / CT L&T spine ordered by ED per anticoagulation clinic. No acute findings - sequela of osteomyelitis - Blood cultures negative >48 hours - Start cefadroxil 500mg q24 hours, continue on discharge - Will need local ID follow up #HTN - Continue Metoprolol - Imdur placed on HOLD 02/12 given hypotension (asymptomatic) - s/p 1 L NSS 02/12. BP remains soft, continue to hold and monitor #Hx of TIA - Continue ASA, Statin #Seizure like activity - Continue Keppra #Hypothyroid - Continue Synthroid #Mental Health - Continue Celexa #GERD - Continue PPI VTE PPx: Coumadin Dispo: Therapy continuing to recommend rehab at this time. Insurance authorization is pending for rehab, likely will not have determination through the weekend especially given holiday weekend. Will continue to monitor how she does with therapy to determine if rehab is still necessary on discharge or if she could return home. F/u on discharge: ortho, ID Updated at bedside Started bowel regimen Admission and Anticipated Discharge Date Admission Date: February 12, 2025 Subjective no acute events overnight Currently no new complaints She had to strain for BM and this made her very exhausted Review of Systems Review of Systems: Comprehensive ROS completed and is otherwise negative. Physical Exam Physical Exam: Gen: no acute distress, lying in bed comfortable HEENT: NC/AT, MMM Lungs: nonlabored breathing, CTAB CVS: s1s2nl, RRR Abd: nl bowel sounds, soft, NT / ND : no blue Ext: no edema, left foot in a boot Neuro: AAOx3 Psych: calm cooperative Results & Data Results & Data Vital Signs (Past 12 Hours) Vital Signs Temp Pulse Resp BP Pulse Ox O2 Del Method 02/15/25 15:40 36.6 C 53 L 16 95/55 L 94 Room Air 02/15/25 08:30 Room Air 02/15/25 08:22 37.1 C 66 16 111/60 94 Room Air PG Care Time/CCT Total # of Minutes Spent Total Time Spent with Patient: Total time spent is greater than 50% in coordination of care (as documented) at patient's floor/unit and/or counseling patient: Coding Level of Care Code 97652 SUB INP/OBS CARE 2/35MIN Diagnoses Avulsion fracture of ankle S82.899A Vertebral osteomyelitis M46.20 H/O mitral valve replacement with mechanical valve Z95.2 Hx of aortic valve replacement, mechanical Z95.2 Hypertension I10 Hypertension type: unspecified (5) Hypertension Hypertension type: unspecified Qualified Code(s): I10 - Essential (primary) hypertension"
[2025-02-16 07:21] LABS: Hematocrit (blood only) 28.0 % (37.0-47.0); Hemoglobin 9.4 g/dl (12.0-16.0); Immature Granulocytes # (auto) 0.04 K/uL (0.01-0.20); Immature Granulocytes % (auto) 0.5 %; Mean Corpuscular Hemoglobin 32.4 pg (25.0-34.0); Mean Corpuscular Volume 96.6 fL (80.0-100.0); Platelet Count 145 K/uL (130-400); RDW Standard Deviation 52.2 fL (36.4-46.3); Red Blood Count 2.90 M/uL (4.20-5.40); White Blood Count 7.63 K/ul (4.8-10.8)
[2025-02-16 07:36] LABS: Anion Gap 5.0 (3-11); Blood Urea Nitrogen 58.0 mg/dl (6-23); Calcium 9.5 mg/dl (8.6-10.3); Carbon Dioxide 26.0 mmol/L (21-32); Chloride 106.0 mmol/L (98-107); Creatinine Clr Calc Pharmacy 17.3 ml/min; Glucose 80.0 mg/dl (70-99(Fasting)); Magnesium 1.9 mg/dl (1.7-2.4); Potassium 4.3 mmol/L (3.5-5.1); Sodium 137.0 mmol/L (136-145)
[2025-02-16] MEDS: PLASMA-LYTE A 1,000 ML IV SCH (10:16)
[2025-02-16] MEDS: PLASMA-LYTE A 500 ML IV ONE (13:00)
--- NOTE | 2025-02-16 17:24 | Hospitalist Progress Note ---
"Date of Service February 16, 2025 Assessment & Plan (1) Avulsion fracture of ankle: (2) Vertebral osteomyelitis: (3) H/O mitral valve replacement with mechanical valve: (4) Hx of aortic valve replacement, mechanical: (5) Hypertension: Plan Magda is a 74 year old female with a PMH of TIA, seizure like activity, hx of mechanical mitral and aortic valve (on coumadin), and CKD who presents after a fall. X-ray with avulsion fracture, difficulty ambulating with walker, admitted for PT/OT evals. PT/OT continue to recommend rehab at this time. She is ambulating with the cam boot on her left foot. #Fall | Avulsion fracture - ankle x-ray showing 3 mm bone fragment adjacent to lateral malleolus suggestive of avulsion fracture. - Ortho consulted - rec cam boot, outpatient follow up in 2 weeks for repeat xray - Orthostatic VS negative - PT/OT continue to recommend rehab placement. Insurance authorization is pending for rehab, will likely not have an answer through the weekend especially given holiday weekend. Will continue to monitor how she progresses with therapy #Orthostatic hypotension - will give plasma-lyte 500 cc x1 bolus plus 1L infusion. - reassess BP tomorrow #Constipation - last documented BM in EMR on 02/09 - Bowel regimen: scheduled MiraLAX daily, Senokot-S 2 tabs HS, Dulcolax 5 mg HS PRN, milk of mag Q6H PRN - Abdomen is soft, nontender, nondistended & has strong bowel sounds #Mechanical Valve - seen in the anticoagulation condition and day of admission, INR goal 2.5-3.5 - Continue Coumadin, will give additional 1mg today. - reassess INR tomorrow #Hx of discitis/osteomyelitis - Admission for such in August, seen by ID, completed 6 weeks of cefazolin and then lifelong PO antibiotics (have not been started) - Blood cultures / CT L&T spine ordered by ED per anticoagulation clinic. No acute findings - sequela of osteomyelitis - Blood cultures negative >48 hours - Start cefadroxil 500mg q24 hours, continue on discharge - Will need local ID follow up #HTN - Continue Metoprolol - Imdur placed on HOLD 02/12 given hypotension (asymptomatic) - s/p 1 L NSS 02/12. BP remains soft, continue to hold and monitor #Hx of TIA - Continue ASA, Statin #Seizure like activity - Continue Keppra #Hypothyroid - Continue Synthroid #Mental Health - Continue Celexa #GERD - Continue PPI VTE PPx: Coumadin Dispo: Therapy continuing to recommend rehab at this time. Insurance authorization is pending for rehab, likely will not have determination through the weekend especially given holiday weekend. Will continue to monitor how she does with therapy to determine if rehab is still necessary on discharge or if she could return home. F/u on discharge: ortho, ID Updated at bedside Started bowel regimen Admission and Anticipated Discharge Date Admission Date: February 12, 2025 Subjective No acute events overnight Currently no new complaints Review of Systems Review of Systems: Comprehensive ROS completed and is otherwise negative. Physical Exam Physical Exam: Gen: no acute distress, lying in bed comfortable HEENT: NC/AT, MMM Lungs: nonlabored breathing, CTAB CVS: s1s2nl, RRR Abd: nl bowel sounds, soft, NT / ND : no blue Ext: no edema, left foot in a boot Neuro: AAOx3 Psych: calm cooperative Results & Data Results & Data Vital Signs (Past 12 Hours) Vital Signs Temp Pulse Resp BP Pulse Ox O2 Del Method 02/16/25 15:00 36.3 C L 64 18 107/61 95 Room Air 02/16/25 07:09 36.3 C L 55 L 17 109/62 94 Room Air PG Care Time/CCT Total # of Minutes Spent Total Time Spent with Patient: Total time spent is greater than 50% in coordination of care (as documented) at patient's floor/unit and/or counseling patient: Coding Level of Care Code 28980 SUB INP/OBS CARE 2/35MIN Diagnoses Avulsion fracture of ankle S82.899A Vertebral osteomyelitis M46.20 H/O mitral valve replacement with mechanical valve Z95.2 Hx of aortic valve replacement, mechanical Z95.2 Hypertension I10 Hypertension type: unspecified (5) Hypertension Hypertension type: unspecified Qualified Code(s): I10 - Essential (primary) hypertension"
[2025-02-16] MEDS: WARFARIN SOD 1 MG TAB PO STA (17:39)
[2025-02-17 08:33] LABS: Anion Gap 5.0 (3-11); Blood Urea Nitrogen 52.0 mg/dl (6-23); Calcium 9.2 mg/dl (8.6-10.3); Carbon Dioxide 27.0 mmol/L (21-32); Chloride 104.0 mmol/L (98-107); Creatinine Clr Calc Pharmacy 18.2 ml/min; Glucose 82.0 mg/dl (70-99(Fasting)); Magnesium 1.8 mg/dl (1.7-2.4); Potassium 4.2 mmol/L (3.5-5.1); Sodium 136.0 mmol/L (136-145)
[2025-02-17 08:53] LABS: INR 2.4 (0.9-1.1); Prothrombin Time 24.5 Seconds (9.0-12.0)
[2025-02-17] MEDS: WARFARIN SOD 1 MG TAB PO SCH (16:55)
--- NOTE | 2025-02-17 17:33 | Hospitalist Progress Note ---
"Date of Service February 17, 2025 Assessment & Plan (1) Avulsion fracture of ankle: (2) Vertebral osteomyelitis: (3) H/O mitral valve replacement with mechanical valve: (4) Hx of aortic valve replacement, mechanical: (5) Hypertension: Plan Magda is a 74 year old female with a PMH of TIA, seizure like activity, hx of mechanical mitral and aortic valve (on coumadin), and CKD who presents after a fall. X-ray with avulsion fracture, difficulty ambulating with walker, admitted for PT/OT evals. PT/OT continue to recommend rehab at this time. She is ambulating with the cam boot on her left foot. #Fall | Avulsion fracture - ankle x-ray showing 3 mm bone fragment adjacent to lateral malleolus suggestive of avulsion fracture. - Ortho consulted - rec cam boot, outpatient follow up in 2 weeks for repeat xray - Orthostatic VS negative - PT/OT continue to recommend rehab placement. Insurance authorization is pending for rehab, Will continue to monitor how she progresses with therapy #Orthostatic hypotension - will give plasma-lyte 500 cc x1 bolus plus 1L infusion. - reassess BP tomorrow #Constipation - last documented BM in EMR on 02/09 - Bowel regimen: scheduled MiraLAX daily, Senokot-S 2 tabs HS, Dulcolax 5 mg HS PRN, milk of mag Q6H PRN - Abdomen is soft, nontender, nondistended & has strong bowel sounds #Mechanical Valve - seen in the anticoagulation condition and day of admission, INR goal 2.5-3.5 - Continue Coumadin, will give additional 1mg today. - reassess INR tomorrow #Hx of discitis/osteomyelitis - Admission for such in August, seen by ID, completed 6 weeks of cefazolin and then lifelong PO antibiotics (have not been started) - Blood cultures / CT L&T spine ordered by ED per anticoagulation clinic. No acute findings - sequela of osteomyelitis - Blood cultures negative >48 hours - Start cefadroxil 500mg q24 hours, continue on discharge - Will need local ID follow up #HTN - Continue Metoprolol - Imdur placed on HOLD 02/12 given hypotension (asymptomatic) - s/p 1 L NSS 02/12. BP remains soft, continue to hold and monitor #Hx of TIA - Continue ASA, Statin #Seizure like activity - Continue Keppra #Hypothyroid - Continue Synthroid #Mental Health - Continue Celexa #GERD - Continue PPI VTE PPx: Coumadin Dispo: Therapy continuing to recommend rehab at this time. auth pending for [facility] F/u on discharge: ortho, ID Updated at bedside Started bowel regimen Admission and Anticipated Discharge Date Admission Date: February 12, 2025 Subjective No acute events overnight Currently no new complaints Review of Systems Review of Systems: Comprehensive ROS completed and is otherwise negative. Physical Exam Physical Exam: Gen: no acute distress, lying in bed comfortable HEENT: NC/AT, MMM Lungs: nonlabored breathing, CTAB CVS: s1s2nl, aortic valvular click present, RRR Abd: nl bowel sounds, soft, NT / ND : no blue Ext: no edema, left foot in a boot Neuro: AAOx3 Psych: calm cooperative Results & Data Results & Data Vital Signs (Past 12 Hours) Vital Signs Temp Pulse Resp BP Pulse Ox O2 Del Method 02/17/25 14:47 36.7 C 60 16 109/60 95 Room Air 02/17/25 11:57 102/58 L 02/17/25 07:12 36.8 C 63 17 106/63 95 Room Air PG Care Time/CCT Total # of Minutes Spent Total Time Spent with Patient: Total time spent is greater than 50% in coordination of care (as documented) at patient's floor/unit and/or counseling patient: Coding Level of Care Code 94454 SUB INP/OBS CARE 2/35MIN Diagnoses Avulsion fracture of ankle S82.899A Vertebral osteomyelitis M46.20 H/O mitral valve replacement with mechanical valve Z95.2 Hx of aortic valve replacement, mechanical Z95.2 Hypertension I10 Hypertension type: unspecified (5) Hypertension Hypertension type: unspecified Qualified Code(s): I10 - Essential (primary) hypertension"
[2025-02-17 23:46] VITALS: TEMP 98.2
[2025-02-18 06:34] LABS: Anion Gap 6.0 (3-11); Blood Urea Nitrogen 47.0 mg/dl (6-23); Calcium 9.3 mg/dl (8.6-10.3); Carbon Dioxide 28.0 mmol/L (21-32); Chloride 105.0 mmol/L (98-107); Creatinine Clr Calc Pharmacy 18.7 ml/min; Glucose 90.0 mg/dl (70-99(Fasting)); Magnesium 1.8 mg/dl (1.7-2.4); Potassium 4.0 mmol/L (3.5-5.1); Sodium 139.0 mmol/L (136-145)
[2025-02-18 06:38] LABS: INR 2.6 (0.9-1.1); Prothrombin Time 25.7 Seconds (9.0-12.0)
[2025-02-18 07:22] VITALS: BP 117/64; PULSE 60; RESP 17; O2SAT 95
--- NOTE | 2025-02-18 11:47 | Hospitalist Progress Note ---
"Date of Service February 18, 2025 Assessment & Plan (1) Avulsion fracture of ankle: (2) Vertebral osteomyelitis: (3) H/O mitral valve replacement with mechanical valve: (4) Hx of aortic valve replacement, mechanical: (5) Hypertension: Plan Magda is a 74 year old female with a PMH of TIA, seizure like activity, hx of mechanical mitral and aortic valve (on coumadin), and CKD who presents after a fall. X-ray with avulsion fracture, difficulty ambulating with walker, admitted for PT/OT evals. PT/OT continue to recommend rehab at this time. She is ambulating with the cam boot on her left foot. #Fall | Avulsion fracture - ankle x-ray showing 3 mm bone fragment adjacent to lateral malleolus suggestive of avulsion fracture. - Ortho consulted - rec cam boot, outpatient follow up in 2 weeks for repeat xray - Orthostatic VS negative - PT/OT continue to recommend rehab placement. Insurance authorization is pending for rehab, Will continue to monitor how she progresses with therapy #Orthostatic hypotension - resolved - s/p plasma-lyte 500 cc x1 bolus plus 1L infusion. - cont to monitor PRN #Constipation - resolved - Bowel regimen: scheduled MiraLAX daily, Senokot-S 2 tabs HS, Dulcolax 5 mg HS PRN, milk of mag Q6H PRN - Abdomen is soft, nontender, nondistended & has strong bowel sounds #Mechanical Valve - seen in the anticoagulation condition and day of admission, INR goal 2.5-3.5 - Continue Coumadin, will give additional 1mg today. - reassess INR tomorrow #Hx of discitis/osteomyelitis - Admission for such in August, seen by ID, completed 6 weeks of cefazolin and then lifelong PO antibiotics (have not been started) - Blood cultures / CT L&T spine ordered by ED per anticoagulation clinic. No acute findings - sequela of osteomyelitis - Blood cultures negative >48 hours - Start cefadroxil 500mg q24 hours, continue on discharge - Will need local ID follow up #HTN - Continue Metoprolol - Imdur placed on HOLD 02/12 given hypotension (asymptomatic) - s/p 1 L NSS 02/12. BP remains soft, continue to hold and monitor #Hx of TIA - Continue ASA, Statin #Seizure like activity - Continue Keppra #Hypothyroid - Continue Synthroid #Mental Health - Continue Celexa #GERD - Continue PPI VTE PPx: Coumadin Dispo: Therapy continuing to recommend rehab at this time. auth pending for [facility] , awaiting callback for [facility] to be completed F/u on discharge: [facility] Admission and Anticipated Discharge Date Admission Date: February 12, 2025 Subjective No acute events overnight Currently stating that she is frustrated waiting on the insurance Review of Systems Review of Systems: Comprehensive ROS completed and is otherwise negative. Physical Exam Physical Exam: Gen: no acute distress, lying in bed comfortable HEENT: NC/AT, MMM Lungs: nonlabored breathing, CTAB CVS: s1s2nl, aortic valvular click present, RRR Abd: nl bowel sounds, soft, NT / ND : no blue Ext: no edema, left foot in a boot Neuro: AAOx3 Psych: calm cooperative Results & Data Results & Data Vital Signs (Past 12 Hours) Vital Signs Temp Pulse Resp BP Pulse Ox O2 Del Method 02/18/25 07:19 36.8 C 60 17 117/64 95 Room Air 02/17/25 23:44 36.8 C 62 16 118/62 93 Room Air PG Care Time/CCT Total # of Minutes Spent Total Time Spent with Patient: Total time spent is greater than 50% in coordination of care (as documented) at patient's floor/unit and/or counseling patient: Coding Level of Care Code 57344 SUB INP/OBS CARE 2/35MIN Diagnoses Avulsion fracture of ankle S82.899A Vertebral osteomyelitis M46.20 H/O mitral valve replacement with mechanical valve Z95.2 Hx of aortic valve replacement, mechanical Z95.2 Hypertension I10 Hypertension type: unspecified (5) Hypertension Hypertension type: unspecified Qualified Code(s): I10 - Essential (primary) hypertension"
--- NOTE | 2025-02-18 14:37 | Discharge Summary ---
"Discharge Summary Date of Service February 18, 2025 Principal Dx & Hospital Course #1 = Principal Diagnosis (1) Avulsion fracture of ankle: (2) Vertebral osteomyelitis: (3) H/O mitral valve replacement with mechanical valve: (4) Hx of aortic valve replacement, mechanical: (5) Hypertension: Jorge Man is a 74 year old female with a PMH of TIA, seizure like activity, hx of mechanical mitral and aortic valve (on coumadin), and CKD who presents after a fall. X-ray with avulsion fracture, difficulty ambulating with walker, admitted for PT/OT evals. PT/OT continue to recommend rehab at this time. She is ambulating with the cam boot on her left foot. #Fall | Avulsion fracture - ankle x-ray showing 3 mm bone fragment adjacent to lateral malleolus suggestive of avulsion fracture. - Ortho consulted - rec cam boot, outpatient follow up in 2 weeks for repeat xray - Orthostatic VS negative - PT/OT continue to recommend rehab placement. Insurance authorization is pending for rehab, Will continue to monitor how she progresses with therapy #Orthostatic hypotension - resolved - s/p plasma-lyte 500 cc x1 bolus plus 1L infusion. - cont to monitor PRN #Constipation - resolved - Bowel regimen: scheduled MiraLAX daily, Senokot-S 2 tabs HS, Dulcolax 5 mg HS PRN, milk of mag Q6H PRN - Abdomen is soft, nontender, nondistended & has strong bowel sounds #Mechanical Valve - seen in the anticoagulation condition and day of admission, INR goal 2.5-3.5 - Continue Coumadin, will give additional 1mg today. - INR on 02/18/25: 2.6 #Hx of discitis/osteomyelitis - Admission for such in August, seen by ID, completed 6 weeks of cefazolin and then lifelong PO antibiotics (have not been started) - Blood cultures / CT L&T spine ordered by ED per anticoagulation clinic. No acute findings - sequela of osteomyelitis - Blood cultures negative >48 hours - Start cefadroxil 500mg q48 hours given CrCl < 20, continue on discharge - Will need local ID follow up #HTN - Continue Metoprolol - Imdur placed on HOLD 02/12 given hypotension (asymptomatic) - s/p 1 L NSS 02/12. BP remains soft, continue to hold and monitor #Hx of TIA - Continue ASA, Statin #Seizure like activity - Continue Keppra #Hypothyroid - Continue Synthroid #Mental Health - Continue Celexa #GERD - Continue PPI Dispo: Therapy continuing to recommend rehab at this time. insurance has declined SNF. pt is being discharged home with home therapy F/u on discharge: ortho, ID Admission HPI Per Admitting Provider Magda is a 74 year old female with a PMH of TIA, seizure like activity, hx of mechanical mitral and aortic valve (on coumadin), and CKD who presents after a fall. reports fall was a few days ago and she has been having ankle pain since. Has been taking Tylenol for the pain. States she was getting up from a recliner and trying to get to the end table and her foot twisted. Denies lightheaded or dizziness when it happened. Denies fevers chills appetite changes recently. No signs of infection. Discharge Exam Gen: no acute distress, lying in bed comfortable HEENT: NC/AT, MMM Lungs: nonlabored breathing, CTAB CVS: s1s2nl, aortic valvular click present, RRR Abd: nl bowel sounds, soft, NT / ND : no blue Ext: no edema, left foot in a boot Neuro: AAOx3 Psych: calm cooperative Discharge Plan Discharge Items Patient Disposition: Home - Home Health Services Reason For Visit: AVULSION FRACTURE Discharge Diagnosis: avulsion fracture Condition on Discharge: Good Activity: As commented below Activity Comment: follow up with orthopedic prior to resuming full activity Non-emergency contact: Primary Care Provider Call non-emergency contact if: you have any medication questions, your symptoms worsen and you have a fever Follow-up/Referrals: [facility] [Provider Group] [facility] [Provider Group] Abigail Saldana MD [Primary Care Provider] - Diet: Heart Healthy Addtl Attending Provider Instructions: follow with infectious disease May remove boot for daily hygiene and ankle ROM should otherwise wear for all weight bearing activity. Follow-up with orthopedics in 1 month follow up with PCP in about 7 to 10 days Pending Studies at Discharge: No Stand-Alone Forms: My Yi De, Smoking Cessation Medications and DC Order Prescriptions: New polyethylene glycol 3350 [Miralax] 17 gram Powder In Packet 17 g PO DAILY Qty: 30 0RF sennosides-docusate sodium [Senokot-S] 8.6-50 mg Tablet 2 tab PO BID Qty: 30 0RF cefadroxil 500 mg Capsule 500 mg PO Q2D@0900 Qty: 15 0RF Continued aspirin 81 mg tablet,delayed release (DR/EC) 81 mg PO QAM Rx Instructions: Unable to verify OTC meds at this date/time. acetaminophen [Tylenol Extra Strength] 500 mg tablet 1,000 mg PO Q8H PRN (Reason: pain) citalopram 20 mg tablet 20 mg PO QAM Qty: 90 3RF pramipexole 0.125 mg tablet 0.125 mg PO QPM Qty: 90 1RF Rx Instructions: administer 2 - 3 hours before bedtime tramadol 50 mg tablet 50 mg PO Q4H PRN (Reason: pain) Qty: 20 0RF levothyroxine 50 mcg tablet 50 mcg PO QAM Qty: 90 3RF folic acid 1 mg tablet 1 mg PO DAILY Qty: 90 3RF calcium carbonate-vitamin D3 600 mg-10 mcg (400 unit) tablet 1 tab PO DAILY Qty: 90 3RF atorvastatin 40 mg tablet 40 mg PO HS pregabalin [Lyrica] 100 mg capsule 100 mg PO BID Qty: 180 1RF levetiracetam [Keppra] 500 mg tablet 500 mg PO BID Qty: 60 2RF levetiracetam [Keppra] 250 mg tablet 250 mg PO QPM 30 Days Qty: 30 3RF Rx Instructions: in addition to 500 mg in pm ( total of 750 mg ) cyanocobalamin (vitamin B-12) 1,000 mcg/mL solution 1,000 mcg IM MONTHLY PRN (Reason: B12 Deficiency ) pantoprazole 40 mg Tablet,Delayed Release (Dr/Ec) 40 mg PO BID Qty: 60 0RF lidocaine 5 % Adhesive Patch,Medicated 1 patch transdermal QAM Qty: 30 0RF metoprolol succinate 25 mg Tablet Extended Release 24 Hr 12.5 mg PO QAM Qty: 30 0RF allopurinol 100 mg tablet 100 mg PO QAM warfarin 2 mg tablet 2 mg PO UD Rx Instructions: NO warfarin on Sundays, 2mg x 6 days per [facility] Changed isosorbide mononitrate 30 mg tablet extended release 24 hr 30 mg PO HS Qty: 90 3RF Discharge Orders: Discharge Order (Routine); Ordered 02/18/25 Ordered By: Pamela Man Admission Data Admit Date/Time: 02/12/25 13:41 Attending Provider: Pamela Man Admit Provider: Cristhian Humphrey Primary Care Provider: Abigail Saldana Other Providers: Cristhian Humphrey; Bautista Baltazar; [facility] Hospital Stay Data Consultations 02/10/25 16:05 ED Decision to Admit Stat 02/11/25 07:00 Consult Orthopedic Surgery Routine Diagnostic Imagining Performed 02/10/25 09:47 CT cervical spine wo con Stat CT head/brain wo con Stat 02/10/25 10:44 CT lumbar spine wo con Stat CT thoracic spine wo con Stat Pending Results Patient Have Any Pending Studies at Discharge: No Discharge Instructions Given to Patient (Per Discharging Provider) follow with infectious disease May remove boot for daily hygiene and ankle ROM should otherwise wear for all weight bearing activity. Follow-up with orthopedics in 1 month follow up with PCP in about 7 to 10 days Total Time Total Time Spent Total Time Spent (In Minutes): 45 Coding Level of Care Code 77647 INP/OBS DISCH >30 MIN Diagnoses Avulsion fracture of ankle S82.899A Vertebral osteomyelitis M46.20 H/O mitral valve replacement with mechanical valve Z95.2 Hx of aortic valve replacement, mechanical Z95.2 Hypertension I10 Hypertension type: unspecified"
--- NOTE | 2025-02-19 13:46 | Coding Query ---
To promote full compliance with coding requirements relating to patient care, physician participation is requested in all cases of technical rep uncertainty. Please assist us with the question(s) below: Coding Question(s): It was noted throughout the record that the patient has/is suspected to have osteoporosis. According to coding guidelines "a code for osteoporotic fracture, and not a traumatic fracture, should be used for any patient with known osteoporosis who suffers a fracture, even if the patient had a minor fall or trauma, if that fall or trauma would not usually break a normal, healthy bone." Please indicate below the type of fracture: Physician's Response(s): ( ) Osteoporotic fracture of left ankle ( X ) Traumatic fracture of left ankle ( ) Other, please specify MTDD
== END 2025-02-18 16:00 | disposition home or self-care (01) | DRG 563 ==
LOC: ED 09:07 → 3N 09:07 → SUATTDRO 02-12 13:41